=== PATIENT | female | born 1950 | race Caucasian/White ===

== ENCOUNTER 2016-07-28 07:08 | Inpatient (IN) | payer MEDICARE ==
[~2016-07-28] VITALS: Ht 154.9 cm; Wt 114.2 kg
[2016-07-28] VITALS (11 sets, daily range): BP systolic 95–123; BP diastolic 50–70; PULSE 82–102; RESP 20–32; TEMP 98.3–99.9; O2SAT 95–98
[~2016-07-28 07:08] MED LIST: FERR325T PO; MIRA0.5T PO; OSCA200T PO; TRAM50TA PO
[2016-07-28] MEDS ORDERED: METR500T10 PO (07:32)
[2016-07-28] MEDS ORDERED: CEFD300C PO (07:32)
[2016-07-28] MEDS ORDERED: HYDR-3516 PO (07:32)
[2016-07-28] MEDS ORDERED: DULO1CAP2 PO (07:32)
[2016-07-28] MEDS ORDERED: SODIUM CHLOR 0.9% 1000 ML INJ 1,000 ML IV SCH (07:35)
--- NOTE | 2016-07-28 07:44 | PD ---
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 The patient reports that she had underwent a complex abdominal reconstruction in September 2015 and ultimately developed wound infection and wound dehiscence. As per patient, Dr. Adrian Velez brought patient to the operating room on October 03, 2015 and she had large recurrent incisional hernia from multiple abdominal surgeries. Postop, patient had hernia repair with mesh placement. 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 Patient reports that she was sent to see Dr. Spencer Starks at [facility] in [facility] for colonic fistula repair and repair of recurrent ventral incisional hernia. 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 Patient currently is taking cefdinir 300mg bid as well as metronidazole 500mg tid - reports that she has been on these medications since she was discharged from [facility] on the . Patient reports that for the past few days, she noticed a "bump" to her left side of her abdomen. Reports that she woke up this morning and her sheets felt wet. Reports that she called her over and he saw stool "spewing out of her abdominal wall." Patient reports that the "bump" on her abdomen "rupture and stool was leaking out of it." Pt with low grade fevers with temps in the 99' s yesterday. NO fever/chills. No other c/o at this time. PFSH Past Medical History Arthritis: Yes Asthma: No Autoimmune Disease: Yes (Lupus) Anxiety: No Depression: No Heart Rhythm Problems: No Cancer: No Cardiovascular Problems: No High Cholesterol: Yes Chemotherapy: No Chest Pain: No Congestive Heart Failure: No COPD: No Cerebrovascular Accident: No Diabetes: No Diminished Hearing: No Endocrine: No Gastrointestinal Disorders: Yes (bowel obstruction, diverticulosis) GERD: No Genitourinary: No Hepatitis: Yes (A in 1981) Hiatal Hernia: No Hypertension: Yes Immune Disorder: No Kidney Stones: No Medical other: Yes (toxic shock syndrome 1981) Musculoskeletal: Yes (degenerative disc disease, spinal stenosis, arthritis) Neurologic: Yes (headaches) Psychiatric: No Reproductive: No Respiratory: Yes (hx pneumonia) Migraines: No Radiation Therapy: No Renal Failure: No Seizures: Yes (September 2015 witnessed in ED.) Sickle Cell Disease: No Sleep Apnea: No Thyroid Disease: No Ulcer: No Menopausal: Yes : 0 Para: 0 Past Surgical History Abdominal Surgery: Yes (Colectomy with colostomy, colostomy reversal, Gastric Bypass) AICD: No Arteriovenous Shunt: No Cardiac Surgery: No Ear Surgery: No Endocrine Surgery: No Eye Surgery: No Genitourinary Surgery: No Gynecologic Surgery: No Insulin Pump: No Joint Replacement: No Oral Surgery: No Pacemaker: No Thoracic Surgery: No Other Surgery: Yes (herina repair surgery september,) Social History Alcohol Use: No Tobacco Use: No Substance Use: No Allergies-Medications (Allergen,Severity, Reaction): Coded Allergies: Penicillin (Verified Allergy, Severe, rash, 07/28/16) Vancomycin (Verified Adverse Reaction, Mild, Hives, 07/28/16) Reported Meds & Prescriptions Reported Meds & Active Scripts Active Reported Metronidazole 500 Mg Tab 500 Mg PO TID Duloxetine DR (Duloxetine HCl) 30 Mg Capdr 30 Mg PO DAILY Cefdinir 300 Mg Cap 300 Mg PO DAILY Hydrocodone-Acetaminophen 5-325 mg Tab 1 Tab PO Q4H PRN Mirapex (Pramipexole Dihydrochloride) 0.5 Mg Tab 0.5 Mg PO HS Ferrous Sulfate 325 Mg Tab 325 Mg PO DAILY Oscal 500/200 D-3 (Calcium Carbonate-Vitamin D) Unknown Strength Tab Unknown Dose PO BID Review of Systems General / Constitutional: No: Fever Eyes: No: Visual changes HENT: No: Headaches Cardiovascular: No: Chest Pain or Discomfort Respiratory: No: Shortness of Breath Gastrointestinal: Positive: Abdominal Pain, No: Nausea, Vomiting Genitourinary: No: Dysuria Musculoskeletal: No: Pain Skin: Positive Other (stool from abdominal wall), No Rash Neurologic: No: Weakness Psychiatric: No: Depression Endocrine: No: Polydipsia Hematologic/Lymphatic: No: Easy Bruising Physical Exam Narrative GENERAL: patient in mild distress SKIN: Warm and dry. HEAD: Atraumatic. Normocephalic. EYES: No injection or drainage. ENT: No nasal bleeding or discharge. Mucous membranes pink and moist. NECK: Trachea midline. No JVD. CARDIOVASCULAR: Regular rate and rhythm. No murmur appreciated. RESPIRATORY: No accessory muscle use. Clear to auscultation. Breath sounds equal bilaterally. GASTROINTESTINAL: Abdomen soft, tenderness to lower abdomen with left sided circumferential lower abdominal wall (1x1cm) green drainage Rectal exam performed with RN Sary at bedside, pt with light brown heme neg stool MUSCULOSKELETAL: No obvious deformities. No clubbing. No cyanosis. No edema. NEUROLOGICAL: Awake and alert. Motor grossly within normal limits. 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 PSYCHIATRIC: Appropriate mood and affect; insight and judgment normal. Data Data Last Documented VS Vital Signs Date Time Temp Pulse Resp B/P Pulse Ox O2 Delivery O2 Flow Rate FiO2 07/28/16 11:01 98.3 85 20 95/51 07/28/16 07:32 95 Orders Consult Vascular Access Team (07/28/16 ) Complete Blood Count With Diff (07/28/16 07:35) Comprehensive Metabolic Panel (07/28/16 07:35) Lipase (07/28/16 07:35) Lactic Acid (07/28/16 07:35) Prothrombin Time / Inr (Pt) (07/28/16 07:35) Act Partial Throm Time (Ptt) (07/28/16 07:35) Urinalysis - C+S If Indicated (07/28/16 07:35) Ct Abd/Pel W Iv Contrast(Rout) (07/28/16 07:35) Iv Access Insert/Monitor (07/28/16 07:35) NPO (07/28/16 07:35) Sodium Chlor 0.9% 1000 Ml Inj (Ns 1000 M (07/28/16 07:35) Sodium Chloride 0.9% Flush (Ns Flush) (07/28/16 07:45) Vascular Poc Ultrasound (07/28/16 ) Type And Screen (07/28/16 08:37) Complete Blood Count With Diff (07/28/16 08:41) Red Blood Cells (Rbc) (07/28/16 09:15) Blood Product Administration .UPON TRANSFUSION (07/28/16 09:15) Sodium Chlor 0.9% 250 Ml Inj (Ns 250 Ml (07/28/16 09:15) Vitamin B12 (07/28/16 09:19) Folate, Serum (07/28/16 09:19) Rbc Folate (07/28/16 09:19) Ferritin (07/28/16 09:19) Iron/Tibc Profile (07/28/16 09:19) Retic Count (07/28/16 09:19) Iohexol 350 Inj (Omnipaque 350 Inj) (07/28/16 10:46) Lidocai-Epi 1%-1:100,000 Inj (Xylocaine- (07/28/16 12:15) Admit Order (Ed Use Only) (07/28/16 12:20) Labs Laboratory Tests Test 07/28/16 07/28/16 07/28/16 07/28/16 08:15 08:45 09:18 10:38 White Blood Count 16.5 TH/MM3 15.5 TH/MM3 Red Blood Count 2.64 MIL/MM3 2.60 MIL/MM3 Hemoglobin 6.8 GM/DL 6.8 GM/DL Hematocrit 21.3 % 21.0 % Mean Corpuscular Volume 80.6 FL 80.7 FL Mean Corpuscular Hemoglobin 25.7 PG 26.3 PG Mean Corpuscular Hemoglobin 31.9 % 32.6 % Concent Red Cell Distribution Width 16.3 % 15.9 % Platelet Count 941 TH/MM3 920 TH/MM3 Mean Platelet Volume 6.5 FL 6.4 FL Neutrophils (%) (Auto) 82.1 % 80.0 % Lymphocytes (%) (Auto) 5.3 % 6.6 % Monocytes (%) (Auto) 11.7 % 12.7 % Eosinophils (%) (Auto) 0.7 % 0.5 % Basophils (%) (Auto) 0.2 % 0.2 % Neutrophils # (Auto) 13.5 TH/MM3 12.4 TH/MM3 Lymphocytes # (Auto) 0.9 TH/MM3 1.0 TH/MM3 Monocytes # (Auto) 1.9 TH/MM3 2.0 TH/MM3 Eosinophils # (Auto) 0.1 TH/MM3 0.1 TH/MM3 Basophils # (Auto) 0.0 TH/MM3 0.0 TH/MM3 CBC Comment DIFF FINAL DIFF FINAL Differential Comment Prothrombin Time 13.3 SEC Prothromb Time International 1.2 RATIO Ratio Activated Partial 24.6 SEC Thromboplast Time Sodium Level 140 MEQ/L Potassium Level 3.7 MEQ/L Chloride Level 102 MEQ/L Carbon Dioxide Level 33.2 MEQ/L Anion Gap 5 MEQ/L Blood Urea Nitrogen 8 MG/DL Creatinine 0.55 MG/DL Estimat Glomerular Filtration 111 ML/MIN Rate Random Glucose 153 MG/DL Lactic Acid Level 1.8 mmol/L Calcium Level 7.6 MG/DL Iron Level 12 MCG/DL Total Iron Binding Capacity 126 MCG/DL Percent Iron Saturation 9.5 % Ferritin 116 NG/ML Total Bilirubin 0.2 MG/DL Aspartate Amino Transf 4 U/L (AST/SGOT) Alanine Aminotransferase 8 U/L (ALT/SGPT) Alkaline Phosphatase 112 U/L Total Protein 5.1 GM/DL Albumin 1.3 GM/DL Lipase 84 U/L Vitamin B12 Level 1524 PG/ML Folate 18.3 NG/ML Blood Type B POSITIVE Antibody Screen NEGATIVE Crossmatch Leukocyte-Reduced Red Blood Cells Blood Bank Comment Reticulocyte Count 2.2 % Absolute Reticulocyte Count 56.8 MIL/L MDM Medical Decision Making Medical Screen Exam Complete: Yes Emergency Medical Condition: Yes Interpretation(s) Vital Signs Date Time Temp Pulse Resp B/P Pulse Ox O2 Delivery O2 Flow Rate FiO2 07/28/16 07:32 98.5 102 20 117/70 95 Differential Diagnosis Abdominal wall colonic fistula, abdominal wall adhesions, seroma, abdominal wall abscess, postop infection Narrative Course Patient is a 65-year-old female who presents to emergency room for evaluation of abdominal wall drainage status post colonic fistula repair with repair of a recurrent ventral incisional hernia on July 23, 2016 at [facility] in [facility]. Patient reports that she noticed that "bump" on her left lower abdomen for the past few days, patient reports that the bump ruptured this morning and she noticed increased stool from the area of her "popped bump." Patient reports that her surgeon is Dr Beach who has been managing her but reports that she was recently operated by Dr Spencer Starks due to complications. 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 plan to obtain labs and ct studies for further workup of abdominal wall drainage. hbg 6.8 - this was checked twice (repeat cbc was sent), pt with heme neg stool with baseline hgb 9.7 01/13), will type and screen and give 1 unit of blood to patient. pt denies lightheadedness/dizzyness, denies cp/sob at this time. patient consents to this unit of blood at this time Repeat CT of the abdomen and pelvis as well as labs with patient Call made to Gen. surgery to review case Case reviewed with Medicine -accepts pt to service Dr Cordova saw patient in consult, he will I&D pt's abscess at bedside, request 2 more units of blood be ordered for patient for a total of 3 units of blood pt will be upgraded to ICU Critical Care Narrative Aggregate critical care time was 45 minutes. Time to perform other separately billable procedures was not included in the critical care time. My time did not include minutes spent treating any other patients simultaneously or on activities that did not directly contribute to the patient's treatment. The services I provided to this patient were to treat and/or prevent clinically significant deterioration that could result in: , decompensation, deterioration I provided critical care services requiring my management, as noted below: Chart data review, documentation time, medication orders and management, vital sign assessments/reviewing monitor data, ordering and reviewing lab tests, ordering and interpreting/reviewing x-rays and diagnostic studies, care of the patient and discussion of the patient with the admitting physicians. Physician Communication Physician Communication Dr Cordova, Family Medicine service Diagnosis Primary Impression: Anemia Qualified Code: D64.9 - Anemia, unspecified type Additional Impression: Abscess of abdominal wall Admitting Information Admitting Physician Requests: Admit Ginette Dunham DO Jul 28, 2016 07:44
[2016-07-28] MEDS ORDERED: SODIUM CHLORIDE 0.9% FLUSH 5 ML FLUSH IVF PRN (07:45)
[2016-07-28 08:26] LABS: AUTOMATED NEUTROPHIL # 13.5 TH/MM3 (1.8-7.7); BASOPHIL % 0.2 % (0.0-2.0); EOSINOPHIL # 0.1 TH/MM3 (0-0.4); EOSINOPHIL % 0.7 % (0.0-4.0); LYMPH % 5.3 % (9.0-44.0); LYMPHOCYTE # 0.9 TH/MM3 (1.0-4.8); MEAN CELL VOLUME 80.6 FL (80.0-100.0); MEAN CORPUSCULAR HEMOGLOBIN 25.7 PG (27.0-34.0); MEAN CORPUSCULAR HGB CONC 31.9 % (32.0-36.0); MONO % 11.7 % (0.0-8.0); NEUT % 82.1 % (16.0-70.0); PLATELET COUNT 941 TH/MM3 (150-450); RED BLOOD COUNT 2.64 MIL/MM3 (4.00-5.30); RED CELL DISTRIBUTION WIDTH 16.3 % (11.6-17.2); WHITE BLOOD COUNT 16.5 TH/MM3 (4.0-11.0)
[2016-07-28 08:27] LABS: HEMO FLAGS DIFF FINAL
[2016-07-28 08:30] LABS: HEMATOCRIT 21.3 % (35.0-46.0)
[2016-07-28 08:35] LABS: APTT (PATIENT) 24.6 SEC (24.3-30.1); INTERNATIONAL NORMALIZED RATIO 1.2 RATIO; PROTHROMBIN TIME - PATIENT 13.3 SEC (9.8-11.6)
[2016-07-28 08:40] LABS: ANION GAP 5 MEQ/L (5-15); AST (GOT) 4 U/L (15-37); BICARBONATE 33.2 MEQ/L (21.0-32.0); BLOOD UREA NITROGEN 8 MG/DL (7-18); CHLORIDE 102 MEQ/L (98-107); GLOMERULAR FILTRATION RATE 111 ML/MIN (>89); POTASSIUM 3.7 MEQ/L (3.5-5.1); SODIUM (NA) 140 MEQ/L (136-145)
[2016-07-28 08:43] LABS: ALKALINE PHOSPHATASE 112 U/L (45-117); ALT (GPT) 8 U/L (10-53); TOTAL BILIRUBIN ADULT 0.2 MG/DL (0.2-1.0)
[2016-07-28 08:57] LABS: AUTOMATED NEUTROPHIL # 12.4 TH/MM3 (1.8-7.7); BASOPHIL % 0.2 % (0.0-2.0); EOSINOPHIL # 0.1 TH/MM3 (0-0.4); EOSINOPHIL % 0.5 % (0.0-4.0); HEMO FLAGS DIFF FINAL; LYMPH % 6.6 % (9.0-44.0); MEAN CELL VOLUME 80.7 FL (80.0-100.0); MEAN CORPUSCULAR HEMOGLOBIN 26.3 PG (27.0-34.0); MEAN CORPUSCULAR HGB CONC 32.6 % (32.0-36.0); MONO % 12.7 % (0.0-8.0); PLATELET COUNT 920 TH/MM3 (150-450); RED CELL DISTRIBUTION WIDTH 15.9 % (11.6-17.2); WHITE BLOOD COUNT 15.5 TH/MM3 (4.0-11.0)
[2016-07-28] MEDS: SODIUM CHLORIDE 0.9% FLUSH 5 ML FLUSH FLUSH SCH ×2 (09:00→21:00)
[2016-07-28] MEDS ORDERED: SODIUM CHLOR 0.9% 250 ML INJ 250 ML IV ONE ×4 (09:15→22:15)
[2016-07-28 10:13] LABS: FERRITIN 116 NG/ML (8-252); TRANSFERRIN IRON PROFILE 90 MG/DL (200-360)
[2016-07-28] MEDS ORDERED: IOHEXOL 350 MG/ML 10 ML VIAL (for RAD DIAG) IV ONE (10:46)
[2016-07-28 10:59] LABS: RETIC % 2.2 % (0.4-3.0)
[2016-07-28 11:02] LABS: REVIEW FLAG FINAL
--- NOTE | 2016-07-28 11:13 | RADRPT ---
EXAM DATE/TIME: 07/28/2016 09:50 [facility] COMPARISON: CT ASSISTED ABSCESS DRAIN, January 06, 2016, 11:32. CT ABDOMEN & PELVIS W CONTRAST, January 05, 2016, 1:06 . INDICATIONS : Abdomen pain. IV CONTRAST: 100 cc Omnipaque 350 (iohexol) IV ORAL CONTRAST: No oral contrast ingested. RADIATION DOSE: 42.05 CTDIvol (mGy) MEDICAL HISTORY : Lupus. Diverticulosis. SURGICAL HISTORY : Gastric bypass. Inguinal hernia repair.Colostomy reversal ENCOUNTER: Initial ACUITY: 1 day PAIN SCALE: 5/10 [facility] TECHNIQUE: Volumetric scanning of the abdomen and pelvis was performed. Using automated exposure control and ad justment of the mA and/or kV according to patient size, radiation dose was kept as low as reasonably achievable to obtain optimal diagnostic quality images. FINDINGS: LOWER LUNGS: The visualized lower lungs are clear. LIVER: Homogeneous density without lesion. There is no dilation of the biliary tree. No gallbladder, surgi nicole removed.. SPLEEN: Normal size without lesion. PANCREAS: Within normal limits. KIDNEYS: Normal in size and shape. There is no mass, stone or hydronephrosis. ADRENAL GLANDS: Within normal limits. VASCULAR: There is no aortic aneurysm. Atherosclerotic changes. BOWEL/MESENTERY: The bowel gas pattern is within normal limits. There is no abnormal dilatation of large or small iwona l. There is stool in the colon. There continues to be either a large hernia versus a panniculus on th e left side with small and large bowel loops seen extending into the left lateral abdominal wall area . No definite free fluid or loculated fluid collections are seen within the peritoneal cavity. No def inite free air is seen in the peritoneal cavity. However, there is a large amount of subcutaneous air is seen throughout the abdominal wall. ABDOMINAL WALL: There is a large amount of subcutaneous emphysema noted throughout the abdominal wall at the level of the umbilicus extending from patient's right lateral wall all the way over to the left lateral wall. Subcutaneous emphysema throughout the abdominal wall was also noted on patient's prior study of 2015. There is a fluid collection with air in the left anterior abdominal wall suspicious for an absc ess. There is also evidence of nonspecific edema in the subcutaneous soft tissues of the abdominal wa ll. RETROPERITONEUM: There is no lymphadenopathy. BLADDER: No wall thickening or mass. REPRODUCTIVE: Within normal limits. INGUINAL: There is no lymphadenopathy or hernia. MUSCULOSKELETAL: Diffuse bony degenerative changes without significant change compared to the prior study. CONCLUSION: 1. There is diffuse and extensive subcutaneous emphysema around the abdominal wall from patient's rig ht lateral abdominal wall all the way across midline to the left lateral abdominal wall. 2. There appears to be of fluid collection in the anterior left abdominal wall suspicious for a subcu taneous abscess. There is nonspecific edema throughout the subcutaneous tissues of the abdominal wall . 3. No acute intra-abdominal/pelvic pathology. Fred Solis MD on July 28, 2016 at 10:56 Board Certified Radiologist. This report was verified electronically.
--- NOTE | 2016-07-28 12:13 | HHI.HP ---
[facility] Service Family Medicine Primary Care Physician Navin Bonner M.D. 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 Patient reports that she underwent a complex abdominal reconstruction in September of 2015 and ultimately developed wound infection and wound dehiscence. Patient states Dr. Velez brought the patient to the OR in September of 2015 as she had a large recurrent incisional hernia from multiple abdominal surgeries. Postop, patient had a hernia repair with mesh placement. 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 Patient reports that she was sent to see Dr. Spencer Starks at [facility] in [place], [place] for colonic fistula repair and repair of recurrent ventral incisional hernia. 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 Patient was discharged on cefdinir 300 mg bid and Flagyl 500 mg tid and states she has been compliant with these medications. Her states that prior to discharge from [place] patient noticed a small "bump" on her abdomen that initially was thought to be due to her abdominal binder. Since discharge, it has steadily been getting larger. This morning it started draining liquid appearing like stool as well as blood. She states her PO intake of both solids and liquids has not changed recently, and denies any issues urinating or stooling this past week. Denies N/V , visible blood in stools, melena. Denies recent fevers, chills, night sweats. ( Abel Jacobs MD R1) Review of Systems Constitutional: DENIES: Fever, Chills, Change in appetite Cardiovascular: DENIES: Chest pain, Palpitations Gastrointestinal: DENIES: Diarrhea, Nausea, Vomiting Genitourinary: DENIES: Hematuria, Dysuria Integumentary: COMPLAINS OF: Rash (Abel Jacobs MD R1) Past Family Social History Past Medical History DM Morbid obesity HTN Bowel obstruction Diverticulosis Seizure SLE Past Surgical History Abdominal absess s/p colostomy 2000 with colostomy takedown 2002 Gastric bypass 2005, multiple hernia repairs, knee surgery 2002 Open cholecystectomy and incisional hernia repair with Dr. Velez (October 02-) 10/04/15 ex lap MALINA, abd wall reconstruction, old mesh removal Reported Medications Reported Meds & Active Scripts Active Reported Metronidazole 500 Mg Tab 500 Mg PO TID Duloxetine DR (Duloxetine HCl) 30 Mg Capdr 30 Mg PO DAILY Cefdinir 300 Mg Cap 300 Mg PO DAILY Hydrocodone-Acetaminophen 5-325 mg Tab 1 Tab PO Q4H PRN Mirapex (Pramipexole Dihydrochloride) 0.5 Mg Tab 0.5 Mg PO HS Ferrous Sulfate 325 Mg Tab 325 Mg PO DAILY Oscal 500/200 D-3 (Calcium Carbonate-Vitamin D) Unknown Strength Tab Unknown Dose PO BID (Abel Jacobs MD R1) Allergies: Coded Allergies: Penicillin (Verified Allergy, Severe, rash, 07/28/16) Family History No FH of colon cancer Social History Lives at home with Quit smoking in 1997 (Abel Jacobs MD R1) Physical Exam Vital Signs Vital Signs Date Time Temp Pulse Resp B/P Pulse Ox O2 Delivery O2 Flow Rate FiO2 07/28/16 11:01 98.3 85 20 95/51 07/28/16 10:48 99.1 98 20 107/58 07/28/16 07:32 98.5 102 20 117/70 95 Physical Exam GENERAL: NAD, lying comfortably in bed NEURO: AOx3. 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 SKIN: Warm and dry. Extensive erythema and some edema diffusely over abdomen with two open areas one being actively drained by Dr. Cordova at bedside. Discharge noted to appear as stool. HEAD: Normocephalic. Atraumatic. EYES: EOMI. No scleral icterus. No injection or drainage. ENT: No nasal drainage. Moist mucous membranes. No oral ulcers or lesions. NECK: Supple, trachea midline. No JVD. CARDIOVASCULAR: Regular rate and rhythm without murmurs, gallops, or rubs. Peripheral pulses 2+. Capillary refill < 2 seconds. RESPIRATORY: Fair aeration throughout, without wheezes, rales, or rhonchi. No accessory muscle use. GASTROINTESTINAL: Abdomen soft, tender to palpation over areas of erythema, protuberant. MUSCULOSKELETAL: 2+ bilateral lower extremity edema. Laboratory Laboratory Tests Test 07/28/16 07/28/16 07/28/16 07/28/16 08:15 08:45 09:18 10:38 White Blood Count 16.5 15.5 Red Blood Count 2.64 2.60 Hemoglobin 6.8 6.8 Hematocrit 21.3 21.0 Mean Corpuscular Volume 80.6 80.7 Mean Corpuscular Hemoglobin 25.7 26.3 Mean Corpuscular Hemoglobin 31.9 32.6 Concent Red Cell Distribution Width 16.3 15.9 Platelet Count 941 920 Mean Platelet Volume 6.5 6.4 Neutrophils (%) (Auto) 82.1 80.0 Lymphocytes (%) (Auto) 5.3 6.6 Monocytes (%) (Auto) 11.7 12.7 Eosinophils (%) (Auto) 0.7 0.5 Basophils (%) (Auto) 0.2 0.2 Neutrophils # (Auto) 13.5 12.4 Lymphocytes # (Auto) 0.9 1.0 Monocytes # (Auto) 1.9 2.0 Eosinophils # (Auto) 0.1 0.1 Basophils # (Auto) 0.0 0.0 CBC Comment DIFF FINAL DIFF FINAL Differential Comment Prothrombin Time 13.3 Prothromb Time International 1.2 Ratio Activated Partial 24.6 Thromboplast Time Sodium Level 140 Potassium Level 3.7 Chloride Level 102 Carbon Dioxide Level 33.2 Anion Gap 5 Blood Urea Nitrogen 8 Creatinine 0.55 Estimat Glomerular Filtration 111 Rate Random Glucose 153 Lactic Acid Level 1.8 Calcium Level 7.6 Iron Level 12 Total Iron Binding Capacity 126 Percent Iron Saturation 9.5 Ferritin 116 Total Bilirubin 0.2 Aspartate Amino Transf 4 (AST/SGOT) Alanine Aminotransferase 8 (ALT/SGPT) Alkaline Phosphatase 112 Total Protein 5.1 Albumin 1.3 Lipase 84 Vitamin B12 Level 1524 Folate 18.3 Blood Type B POSITIVE Antibody Screen NEGATIVE Crossmatch Leukocyte-Reduced Red Blood Cells Blood Bank Comment Reticulocyte Count 2.2 Absolute Reticulocyte Count 56.8 (Abel Jacobs MD R1) Result Diagram: 07/28/16 0845 07/28/16 0815 Imaging Last 48 hours Impressions Abdomen/Pelvis CT 07/28/16 0735 Signed Impressions: Service Date/Time: Thursday, July 28, 2016 09:50 - CONCLUSION: 1. There is diffuse and extensive subcutaneous emphysema around the abdominal wall from patient's right lateral abdominal wall all the way across midline to the left lateral abdominal wall. 2. There appears to be of fluid collection in the anterior left abdominal wall suspicious for a subcutaneous abscess. There is nonspecific edema throughout the subcutaneous tissues of the abdominal wall. 3. No acute intra-abdominal/pelvic pathology. 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 She is also found to be anemic and BP hypotensive at 95/51. She will be admitted and managed for the following: Code Status Full code Discussed Condition With Dr. Faye Harris (Abel Jacobs MD R1) Attending Attestation THIS CASE WAS DISCUSSED WITH THE RESIDENT PHYSICIANS. I HAVE REVIEWED THE RECORD AND AGREE WITH THE ABOVE NOTE AND PLAN OF CARE WAS DISCUSSED. I HAVE AUTHORIZED THE ORDER FOR ADMISSION TO AN IN-PATIENT STATUS. (Fred Mckinney MD) Problem List: (1) Abscess of abdominal wall Status: Acute Plan: - Meets sepsis criteria; tachycardic, tachypneic, with leukocytosis - Lactic acid 1.8 - Abdomen/Pelvis CT: Diffuse and extensive subcutaneous emphysema around the abdominal wall from patient's right lateral abdominal wall across midline to left lateral abdominal wall. Fluid collection in anterior left abdominal wall suspicious for subcutaneous abscess. Nonspecific edema throughout subcutaneous tissues. No acute intra-abdominal or pelvic pathology. Given extent of erythema and edema of skin and subcutaneous abscess, we will cover with broad-spectrum antibiotics - Vancomycin, pharm consult - Cefepime 2gm IV q8h - Flagyl 500 mg IV q6h Pain control with morphine 4 mg IV q4h prn pain 6-10, hold if SBP < 110 or DBP < 60 Consult general surgery - Case discussed with Dr. Cordova, general surgeon; who stated the patient will go to the OR tomorrow for likely I&D and possible wound vac (2) Hypotension Status: Acute Plan: - BP on admission 117/70 - Patient became hypotensive to 95/51 while abscess was being drained at bedside - Likely due to sepsis and acute blood loss - Will admit the patient to an ICU given her hypotension with anemia and risk for decompensation - Last ECHO on file from 09/2015 TTE: Normal systolic function, EF estimated 55- 60%; grade 1 diastolic dysfunction - Discussed with Dr. Cordova that if the patient were to develop worsening hypotension overnight, call Dr. Cordova prior to initiating any pressor therapy as the patient may urgently be taken to the OR (3) Anemia Status: Acute Plan: - Hgb on admission 6.8 - MCV 80.7 - Iron panel obtained prior to blood transfusions indicating anemia of chronic disease - Consult gastroenterology for possible EGD/colonoscopy for further evaluation - B12 and Folate both elevated - Retic count inappropriately at 2.2 - 1 unit PRBCs ordered by ED - Will transfuse additional 2 units PRBCs with 20 mg IV Lasix in between - Goal Hgb per general surgery is > 9 in anticipation of surgery tomorrow - Recheck H/H post-transfusion - Order additional PRBCs if Hgb is not > 9 - Trend CBC tomorrow AM (4) Sepsis Status: Acute Plan: Plan as above (5) Nutrition, metabolism, and development symptoms Status: Acute Plan: Fluids: Will start this PM ahead of surgery Electrolytes: WNLs, continue to monitor and replete as necessary Nutrition: Clear liquid diet today, NPO after midnight DVT PPX: SCDs. No chemical anticoagulation in anticipation of surgery tomorrow (Abel Jacobs MD R1) Physician Certification 2 Midnight Certification Type: Admission for Inpatient Services Order for Inpatient Services The services are ordered in accordance with Medicare regulations or non- Medicare payer requirements, as applicable. In the case of services not specified as inpatient-only, they are appropriately provided as inpatient services in accordance with the 2-midnight benchmark. Estimated LOS (days): 3 days is the estimated time the patient will need to remain in the hospital, assuming treatment plan goals are met and no additional complications. Post-Hospital Plan: Home (Abel Jacobs MD R1) Problem Qualifiers (1) Anemia: Qualified Code: D64.9 - Anemia, unspecified type Abel Jacobs MD R1 Jul 28, 2016 12:13 Fred Mckinney MD Jul 28, 2016 21:12
[2016-07-28] MEDS ORDERED: LIDOCAINE 1%/EPINEPHrine 1:100,000 SOLN 20 ML VIAL INFIL ONE (12:15)
[2016-07-28] MEDS ORDERED: LEVOFLOXACIN 750 MG PREMIX INJ 150 ML IV ONE (12:30)
[2016-07-28] MEDS ORDERED: NALOXONE HCL 0.4 MG/ML AMP IV PRN (13:00)
[2016-07-28] MEDS ORDERED: SODIUM CHLORIDE 0.9% FLUSH 5 ML FLUSH FLUSH PRN (13:00)
[2016-07-28] MEDS ORDERED: FUROSEMIDE 20 MG/2 ML VIAL IV ONE (13:00)
[2016-07-28] MEDS ORDERED: FUROSEMIDE 20 MG/2 ML VIAL IV PUSH ONE (13:00)
[2016-07-28] MEDS: CEFEPIME INJ 2,000 MG in SODIUM CHLORIDE 0.9% INJ 100 ML IV SCH ×2 (14:00→21:24)
--- NOTE | 2016-07-28 14:41 | PD.CONS ---
HPI History of Present Illness This is a 65 year old female with extensive history of complicated multiple abdominal surgeries dating back to 2000, gastric by pass, and large recurrent incisional hernia from multiple abdominal surgeries.who presents today for evaluation of abdominal fistula. By report, patient had a recent repair of small bowel fistula and ventral incisional hernia repair in [place] and was discharged on July 23, 2016 on abx. Patient reports that for the past few days, she noticed a "bump" to her left side of her abdomen. Reports that she woke up this morning and her sheets felt wet. The bump had ruptured and stool was leaking out of it. Pt with low grade fevers with temps in the 99's yesterday. Gs consulted. GI have been consulted for anemia of 6.8. Patient denies nausea, vomiting, hematemesis, hematochezia or melena. Reports loose stools, but not severe. CT showed 1. There is diffuse and extensive subcutaneous emphysema around the abdominal wall from patient's right lateral abdominal wall all the way across midline to the left lateral abdominal wall. 2. There appears to be of fluid collection in the anterior left abdominal wall suspicious for a subcutaneous abscess. There is nonspecific edema throughout the subcutaneous tissues of the abdominal wall. 3. No acute intra-abdominal/ pelvic pathology. She had EGD/colonoscopy about 7 years ago. (Tolu Moran) PFSH Past Medical History DM Morbid obesity HTN Bowel obstruction Diverticulosis Seizure SLE Past Surgical History abdominal absess s/p colostomy 2000 with colostomy takedown 2001 gastric bypass 2004, multiple hernia repairs, knee surgery 200210/04/15 ex lap MALINA, abd wall reconstruction, old mesh removal, cholecystectomy recent repair of small bowel fistula and ventral incisional hernia repair in [place] in 2017 (Tolu Moran) Coded Allergies: Penicillin (Verified Allergy, Severe, rash, 07/28/16) Medications Current Medications Medications (Trade) Dose Ordered Sig/Johnie Route Start Time Stop Time Status Last Admin IV Flush 2 ml 2 ml UNSCH PRN IVF 07/28/16 07:45 Sodium Chloride 250 ml @ 15 mls/hr ONCE ONCE IV 07/28/16 09:15 07/29/16 01:54 07/28/16 10:47 (NS 250 ml Inj) 250 ml @ 15 mls/hr ONCE ONCE IV 07/28/16 13:00 07/29/16 05:39 (NS Flush) 2 ml UNSCH PRN FLUSH 07/28/16 13:00 (NS Flush) 2 ml BID FLUSH 07/28/16 13:00 Naloxone HCl 0.4 mg 0.4 mg UNSCH PRN IV 07/28/16 13:00 Sodium Chloride 250 ml @ 15 mls/hr ONCE ONCE IV 07/28/16 13:00 07/29/16 05:39 Vancomycin HCl 1000 mg/Sodium Chloride 250 ml @ 250 mls/hr Q24H IV 07/28/16 15:00 Cefepime HCl 2000 mg/Sodium Chloride 100 ml @ 200 mls/hr Q8H IV 07/28/16 14:00 (Flagyl 500 Mg Inj) 100 ml @ 100 mls/hr Q6H IV 07/28/16 14:00 (Morphine Inj) 4 mg Q4HR PRN IV PUSH 07/28/16 13:45 Family History No family history of colon cancer Social History No alcohol No smoking (Tolu Moran) Review of Systems Constitutional: DENIES: Chills, Change in appetite Endocrine: DENIES: Polyuria Ears, nose, mouth, throat: DENIES: Hoarseness Respiratory: DENIES: Shortness of breath Cardiovascular: DENIES: Syncope, Lower Extremity Edema Gastrointestinal: DENIES: Abdominal pain, Black stools, Bloody stools, Constipation, Diarrhea, Nausea, Vomiting, Difficulty Swallowing, Anorexia, Odynophagia, Swelling of Abdomen, Heartburn, Hematemesis Genitourinary: DENIES: Hematuria Musculoskeletal: DENIES: Neck pain Integumentary: DENIES: Jaundice Hematologic/lymphatic: DENIES: Bruising Immunologic/allergic: DENIES: Eczema Neurologic: DENIES: Abnormal gait Psychiatric: DENIES: Anxiety (Tolu Moran) GI Exam Vitals I&O Vital Signs Date Time Temp Pulse Resp B/P Pulse Ox O2 Delivery O2 Flow Rate FiO2 07/28/16 13:31 82 20 113/53 07/28/16 11:01 98.3 85 20 95/51 07/28/16 10:48 99.1 98 20 107/58 07/28/16 07:32 98.5 102 20 117/70 95 I/O 07/27/16 07/27/16 07/27/16 07/28/16 1/28/17 1/28/17 07:00 15:00 23:00 07:00 15:00 23:00 Intake Total 1000 ml Balance 1000 ml Intake IV Total 1000 ml Imaging Last Impressions Abdomen/Pelvis CT 07/28/16 0735 Signed Impressions: Service Date/Time: Thursday, July 28, 2016 09:50 - CONCLUSION: 1. There is diffuse and extensive subcutaneous emphysema around the abdominal wall from patient's right lateral abdominal wall all the way across midline to the left lateral abdominal wall. 2. There appears to be of fluid collection in the anterior left abdominal wall suspicious for a subcutaneous abscess. There is nonspecific edema throughout the subcutaneous tissues of the abdominal wall. 3. No acute intra-abdominal/pelvic pathology. Fred Solis MD Laboratory Test 07/28/16 07/28/16 07/28/16 07/28/16 08:15 08:45 09:18 10:38 White Blood Count 16.5 TH/MM3 15.5 TH/MM3 Red Blood Count 2.64 MIL/MM3 2.60 MIL/MM3 Hemoglobin 6.8 GM/DL 6.8 GM/DL Hematocrit 21.3 % 21.0 % Mean Corpuscular Volume 80.6 FL 80.7 FL Mean Corpuscular Hemoglobin 25.7 PG 26.3 PG Mean Corpuscular Hemoglobin 31.9 % 32.6 % Concent Red Cell Distribution Width 16.3 % 15.9 % Platelet Count 941 TH/MM3 920 TH/MM3 Mean Platelet Volume 6.5 FL 6.4 FL Neutrophils (%) (Auto) 82.1 % 80.0 % Lymphocytes (%) (Auto) 5.3 % 6.6 % Monocytes (%) (Auto) 11.7 % 12.7 % Eosinophils (%) (Auto) 0.7 % 0.5 % Basophils (%) (Auto) 0.2 % 0.2 % Neutrophils # (Auto) 13.5 TH/MM3 12.4 TH/MM3 Lymphocytes # (Auto) 0.9 TH/MM3 1.0 TH/MM3 Monocytes # (Auto) 1.9 TH/MM3 2.0 TH/MM3 Eosinophils # (Auto) 0.1 TH/MM3 0.1 TH/MM3 Basophils # (Auto) 0.0 TH/MM3 0.0 TH/MM3 CBC Comment DIFF FINAL DIFF FINAL Differential Comment Prothrombin Time 13.3 SEC Prothromb Time International 1.2 RATIO Ratio Activated Partial 24.6 SEC Thromboplast Time Sodium Level 140 MEQ/L Potassium Level 3.7 MEQ/L Chloride Level 102 MEQ/L Carbon Dioxide Level 33.2 MEQ/L Anion Gap 5 MEQ/L Blood Urea Nitrogen 8 MG/DL Creatinine 0.55 MG/DL Estimat Glomerular Filtration 111 ML/MIN Rate Random Glucose 153 MG/DL Lactic Acid Level 1.8 mmol/L Calcium Level 7.6 MG/DL Iron Level 12 MCG/DL Total Iron Binding Capacity 126 MCG/DL Percent Iron Saturation 9.5 % Ferritin 116 NG/ML Total Bilirubin 0.2 MG/DL Aspartate Amino Transf 4 U/L (AST/SGOT) Alanine Aminotransferase 8 U/L (ALT/SGPT) Alkaline Phosphatase 112 U/L Total Protein 5.1 GM/DL Albumin 1.3 GM/DL Lipase 84 U/L Vitamin B12 Level 1524 PG/ML Folate 18.3 NG/ML Blood Type B POSITIVE Antibody Screen NEGATIVE Crossmatch Leukocyte-Reduced Red Blood Cells Blood Bank Comment Reticulocyte Count 2.2 % Absolute Reticulocyte Count 56.8 MIL/L Test 07/28/16 12:55 Crossmatch Leukocyte-Reduced Red Blood Cells Blood Bank Comment Date/Time Procedure Status Source Growth 07/28/16 13:15 Aerobic Blood Culture Received Blood Peripheral Pending 07/28/16 13:15 Anaerobic Blood Culture Received Blood Peripheral Pending Physical Examination HEENT: normocephalic; atraumatic; no jaundice. Throat is clear. NECK: Neck is supple, no JVD, no lymphadenopathy. CHEST: Chest is clear to auscultation and percussion. CARDIAC: Regular rate and rhythm with no murmur gallop or rubs. ABDOMEN: firm, nondistended, tender; obese, dssng across the most of the abdomen, 2 drainge bags to the left side, with yellow material. EXTREMITIES: No clubbing, cyanosis, or edema. SKIN: Normal; no rash; no jaundice. GATHERING WORKER: No focal deficits; alert and oriented times three. (Tolu Moran) Assessment and Plan Plan - Severe anemia of 6.8- 3 units have been ordered . GI have been consulted for anemia of 6.8. Patient denies nausea, vomiting, hematemesis, hematochezia or melena. Reports loose stools, but not severe. CT showed 1. There is diffuse and extensive subcutaneous emphysema around the abdominal wall from patient's right lateral abdominal wall all the way across midline to the left lateral abdominal wall. 2. There appears to be of fluid collection in the anterior left abdominal wall suspicious for a subcutaneous abscess. There is nonspecific edema throughout the subcutaneous tissues of the abdominal wall. 3. No acute intra-abdominal/pelvic pathology. She had EGD/colonoscopy about 7 years ago. - Colocutaneous fistula- Gs consulted, ct as above. Patient reports that for the past few days, she noticed a "bump" to her left side of her abdomen. Reports that she woke up this morning and her sheets felt wet. The bump had ruptured and stool was leaking out of it. Pt with low grade fevers with temps in the 99's yesterday. - leukocytosis- WBC 15.5,low grade fever, blood cx pending, lactic acid normal, abx - extensive history of complicated multiple abdominal surgeries dating back to 1999, gastric by pass, and large recurrent incisional hernia from multiple abdominal surgeries.who presents today for evaluation of abdominal fistula. By report, patient had a recent repair of small bowel fistula and ventral incisional hernia repair in [place] and was discharged on July 23, 2016 on abx. Plan: - Diet per GS - will await GS eval, per patient,she is going to OR tomorrow - Will hold off on any GI procedures pending GS work up - EGD/colonoscopy once more stable - Cont to monitor hh - Transfuse as needed - Cont. abx - Supportive care - Patient seen and examined by Dr. Woodruff and myself and this note is written on her behalf. (Tolu Moran) Physician Comments seen, examined agree with above we will observe closely , if hb continues to drop we will schedule egd/colon ( Lora Woodruff MD) Tolu Moran Jul 28, 2016 14:41 Lora Woodruff MD Jul 28, 2016 17:15
[2016-07-28] MEDS ORDERED: VANCOMYCIN 1,000 MG/NS 250 ML IV SCH ×2 (15:00)
[2016-07-28] MEDS ORDERED: VANCOMYCIN INJ 1,000 MG in SODIUM CHLOR 0.9% 250 ML INJ 250 ML IV SCH (15:00)
[2016-07-28] MEDS ORDERED: Vancomycin Consult Pharmacy 1 EA OTHER SCH (16:30)
[2016-07-28] MEDS: VANCOMYCIN 1,500 MG/NS 500 ML IV SCH ×2 (18:14)
--- NOTE | 2016-07-28 18:28 | MB ---
cc: EFREN OLSON M.D. DATE OF CONSULTATION: 07/28/2016. REASON FOR CONSULTATION: Abdominal wall abscess with fistula. 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 The patient was discharged July 23 and has been home since her surgery. She was discharged on antibiotics and had increasing size mass on the left side of the abdomen. The patient developed increasing redness as well and this morning began draining liquid-like stool. She denies fevers, chills or night sweats. REVIEW OF SYSTEMS: CONSTITUTIONAL: No change in appetite. CARDIOVASCULAR: No chest pain or palpitations. RESPIRATORY: No shortness of breath. GI: No nausea, vomiting or diarrhea. : No hematuria or dysuria. INTEGUMENTARY: Area of redness on the lower abdominal wall. FAMILY HISTORY: Past history of diabetes, morbid obesity, hypertension, diverticulosis, seizures, systemic lupus. PAST SURGICAL HISTORY: 1. Abdominal abscess with colostomy in 2000 with colostomy take down in 2001. 2. The patient underwent gastric bypass in 2004 and had multiple hernia repairs since that time. 3. She also had knee surgery in 2002. 4. She had open cholecystectomy with incisional hernia repair by Dr. Velez in September of 2011. 5. Exploratory laparotomy with abdominal wall reconstruction and old mesh removal in September of 2015. MEDICATIONS ON ADMISSION: 1. Cefdinir 300 milligrams daily. 2. Metronidazole 500 milligrams three times a day. 3. Duloxetine 30 milligrams daily. 4. Holderness 5 milligrams q. 4 PRN. 5. Mirapex 0.5 milligrams at bedtime. 6. Ferrous sulfate 325 milligrams daily. 7. Os-Arnulfo 500 / 200 twice a day. ALLERGIES: THE PATIENT HAS AN ALLERGY TO PENICILLIN WHICH CAUSES A RASH. SOCIAL HISTORY: The patient is and lives at home with her . She quit smoking in 1997. PHYSICAL EXAMINATION: GENERAL: The physical exam reveals a morbidly obese female who is uncomfortable. VITAL SIGNS: Blood pressure is 107/58, pulse 98, respirations 20, temperature 99.1. HEAD, EYES, EARS, NOSE, THROAT: Sclerae anicteric. Pupils reactive. NECK: Neck is supple. Throat is clear. CHEST: Clear to auscultation. CARDIAC: Cardiac exam reveals regular rate and rhythm. ABDOMEN: Abdomen is soft with erythema in the left lower quadrant of the abdomen. There is a well-healed Y-shaped incision with large sutures. On the left side of the abdomen, there is watery stool-like material draining from a small pin hole wound. Pulses are present. NEUROLOGIC: Exam is nonfocal. LABORATORY VALUES: Laboratory values demonstrate WBCs of 15.5 with hemoglobin 6.8, hematocrit 21.0, platelet count 920,200. Electrolytes demonstrate potassium of 3.7, BUN and creatinine of 8 and 0.55. Lipase is normal at 84. IMAGING STUDIES: CT imaging demonstrates large hernia with small and large bowel loops extending into the left lateral abdominal wall area. No free fluid or loculated fluid collections are seen to be in the peritoneal cavity. There is a large amount of subcutaneous emphysema on the abdominal wall at the level of the umbilicus extending over to the lateral wall. Subcutaneous emphysema was also seen in a prior study of January 05, 2016. There is a fluid collection with air in the anterior abdominal wall suspicious for an abscess on the left. 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 PLAN: After discussion with the patient and his , bedside drainage will be performed to release this as the patient has a hemoglobin of 6.8. General anesthesia would be generally contraindicated at this time as she has no signs or symptoms of sepsis or bacteremia. If this is inadequate, after transfusion, the patient will be taken to the operating room. I have discussed this with Dr. Velez and he is agreeable to perform definitive procedure after the patient has received transfusions and is optimized for a more definitive procedure. MD LUCAS Flynn/DERICK /5:48 PM /6:08 PM
[2016-07-28] MEDS: metroNIDAZOLE 500 MG INJ 100 ML IV SCH ×2 (19:32→20:18)
--- NOTE | 2016-07-28 21:11 | HHI.HP ---
[facility] Service Family Medicine Primary Care Physician Navin Bonner M.D. Admission Diagnosis Diagnoses: (1) Abscess of abdominal wall (2) Hypotension (3) Anemia (4) Sepsis (5) Nutrition, metabolism, and development symptoms International Travel<30 Days: No Contact w/Intl Traveler<30days: No Known Affected Area: No History of Present Illness 65 yo F presenting to the ED for abdominal wall abscess/cellulitis vs. fistula. She has a long history of abdominal procedures/surgeries with a recent complex abdominal reconstruction in 10/14. She eventually developed an infection of the mesh and fistula, requiring another procedure (done in [place]) for colonic fistula repair and repair of ventral hernia. She was treated for sepsis with broad spectrum antibiotics while hospitalized, discharged on 07/23/16 on cefdinir and flagyl. Since her discharge, she has noted erythema, firmness, and pain around her abdomen. She pushed on her abdomen this morning and noted a release of fluid that she did not know if it was infection or stool material. She was brought to the ED for further evaluation. She denies fevers or chills. Denies nausea/ vomiting. Denies diaphoresis or lightheadedness. She was seen after surgery had incised 2 areas with drainage of 500ml of purulent/fecal material. Patient states that the pain in her abdomen is much better after the drainage. Review of Systems Constitutional: DENIES: Fever, Chills Respiratory: DENIES: Cough, Sputum production, Shortness of breath Cardiovascular: COMPLAINS OF: Lower Extremity Edema, DENIES: Chest pain, Dyspnea on Exertion Gastrointestinal: COMPLAINS OF: Abdominal pain, DENIES: Bloody stools, Constipation, Diarrhea, Nausea, Vomiting Genitourinary: DENIES: Dysuria Musculoskeletal: DENIES: Stiffness, Joint Swelling Past Family Social History Past Medical History DM Morbid obesity HTN Bowel obstruction Diverticulosis Seizure SLE Past Surgical History Abdominal absess s/p colostomy 2000 with colostomy takedown 2002 Gastric bypass 2004, multiple hernia repairs, knee surgery 2002 Open cholecystectomy and incisional hernia repair with Dr. Velez (October 02-) 10/04/15 ex lap MALINA, abd wall reconstruction, old mesh removal Allergies: Coded Allergies: Penicillin (Verified Allergy, Severe, rash, 07/28/16) Family History No FH of colon cancer Social History Lives at home with Quit smoking in 1997 Physical Exam Vital Signs Vital Signs Date Time Temp Pulse Resp B/P Pulse Ox O2 Delivery O2 Flow Rate FiO2 07/28/16 18:00 100 07/28/16 16:00 99 07/28/16 16:00 98.5 100 32 111/59 96 07/28/16 15:07 99.9 89 20 103/50 07/28/16 14:49 100 20 123/53 98 07/28/16 13:31 82 20 113/53 07/28/16 11:01 98.3 85 20 95/51 07/28/16 10:48 99.1 98 20 107/58 07/28/16 07:32 98.5 102 20 117/70 95 Physical Exam GENERAL: NAD, lying comfortably in bed NEURO: AOx3. 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 SKIN: Warm and dry. Extensive erythema and some edema diffusely over abdomen with two open areas covered with clean bandages. Peeling of skin at lower abdomen HEAD: Normocephalic. Atraumatic. EYES: EOMI. No scleral icterus. No injection or drainage. CARDIOVASCULAR: Regular rate and rhythm without murmurs, gallops, or rubs. Peripheral pulses 2+. Capillary refill < 2 seconds. RESPIRATORY: Fair aeration throughout, without wheezes, rales, or rhonchi. No accessory muscle use. GASTROINTESTINAL: Abdomen soft, tender to palpation over areas of erythema, protuberant. MUSCULOSKELETAL: 2+ bilateral lower extremity edema. Laboratory Laboratory Tests Test 07/28/16 07/28/16 07/28/16 07/28/16 08:15 08:45 09:18 10:38 White Blood Count 16.5 15.5 Red Blood Count 2.64 2.60 Hemoglobin 6.8 6.8 Hematocrit 21.3 21.0 Mean Corpuscular Volume 80.6 80.7 Mean Corpuscular Hemoglobin 25.7 26.3 Mean Corpuscular Hemoglobin 31.9 32.6 Concent Red Cell Distribution Width 16.3 15.9 Platelet Count 941 920 Mean Platelet Volume 6.5 6.4 Neutrophils (%) (Auto) 82.1 80.0 Lymphocytes (%) (Auto) 5.3 6.6 Monocytes (%) (Auto) 11.7 12.7 Eosinophils (%) (Auto) 0.7 0.5 Basophils (%) (Auto) 0.2 0.2 Neutrophils # (Auto) 13.5 12.4 Lymphocytes # (Auto) 0.9 1.0 Monocytes # (Auto) 1.9 2.0 Eosinophils # (Auto) 0.1 0.1 Basophils # (Auto) 0.0 0.0 CBC Comment DIFF FINAL DIFF FINAL Differential Comment Prothrombin Time 13.3 Prothromb Time International 1.2 Ratio Activated Partial 24.6 Thromboplast Time Sodium Level 140 Potassium Level 3.7 Chloride Level 102 Carbon Dioxide Level 33.2 Anion Gap 5 Blood Urea Nitrogen 8 Creatinine 0.55 Estimat Glomerular Filtration 111 Rate Random Glucose 153 Lactic Acid Level 1.8 Calcium Level 7.6 Iron Level 12 Total Iron Binding Capacity 126 Percent Iron Saturation 9.5 Ferritin 116 Total Bilirubin 0.2 Aspartate Amino Transf 4 (AST/SGOT) Alanine Aminotransferase 8 (ALT/SGPT) Alkaline Phosphatase 112 Total Protein 5.1 Albumin 1.3 Lipase 84 Vitamin B12 Level 1524 Folate 18.3 Blood Type B POSITIVE Antibody Screen NEGATIVE Crossmatch Leukocyte-Reduced Red Blood Cells Blood Bank Comment Reticulocyte Count 2.2 Absolute Reticulocyte Count 56.8 Test 07/28/16 12:55 Crossmatch Leukocyte-Reduced Red Blood Cells Blood Bank Comment Date/Time Procedure Status Source Growth 07/28/16 13:15 Aerobic Blood Culture Received Blood Peripheral Pending 07/28/16 13:15 Anaerobic Blood Culture Received Blood Peripheral Pending Result Diagram: 07/28/16 0845 07/28/16 0815 Imaging Last 48 hours Impressions Abdomen/Pelvis CT 07/28/16 0735 Signed Impressions: Service Date/Time: Thursday, July 28, 2016 09:50 - CONCLUSION: 1. There is diffuse and extensive subcutaneous emphysema around the abdominal wall from patient's right lateral abdominal wall all the way across midline to the left lateral abdominal wall. 2. There appears to be of fluid collection in the anterior left abdominal wall suspicious for a subcutaneous abscess. There is nonspecific edema throughout the subcutaneous tissues of the abdominal wall. 3. No acute intra-abdominal/pelvic pathology. 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 She is also found to be anemic and BP hypotensive at 95/51. She will be admitted and managed for the following: Problem List: (1) Sepsis Status: Acute Plan: Plan as per abscess of abdominal wall (2) Abscess of abdominal wall Status: Acute Plan: - Meets sepsis criteria; tachycardic, tachypneic, with leukocytosis - Lactic acid 1.8 - Abdomen/Pelvis CT: Diffuse and extensive subcutaneous emphysema around the abdominal wall from patient's right lateral abdominal wall across midline to left lateral abdominal wall. Fluid collection in anterior left abdominal wall suspicious for subcutaneous abscess. Nonspecific edema throughout subcutaneous tissues. No acute intra-abdominal or pelvic pathology. Given extent of erythema and edema of skin and subcutaneous abscess, we will cover with broad-spectrum antibiotics Broad Spectrum Antibiotics as below: - Vancomycin, pharm consult - Cefepime 2gm IV q8h - Flagyl 500 mg IV q6h Pain control with morphine 4 mg IV q4h prn pain 6-10, hold if SBP < 110 or DBP < 60 Blood cultures ordered Wound culture to be sent from the OR Consult general surgery - Case discussed with Dr. Cordova, general surgeon; who stated the patient will go to the OR tomorrow for likely I&D and possible wound vac (3) Hypotension Status: Acute Plan: - BP on admission 117/70 - Patient became hypotensive to 95/51 while abscess was being drained at bedside - Likely due to sepsis and acute blood loss - Will admit the patient to an ICU given her hypotension with anemia and risk for decompensation - Last ECHO on file from 09/2015 TTE: Normal systolic function, EF estimated 55- 60%; grade 1 diastolic dysfunction - Discussed with Dr. Cordova that if the patient were to develop worsening hypotension overnight, call Dr. Cordova prior to initiating any pressor therapy as the patient may urgently be taken to the OR (4) Anemia Status: Acute Plan: Patient recently treated for sepsis at [facility] - Hgb on admission 6.8 To be transfused 3 units PRBCs for goal of Hgb >9 per surgery Recheck Hgb following transfusion - MCV 80.7 - Iron panel obtained prior to blood transfusions indicating anemia of chronic disease - Consult gastroenterology for possible EGD/colonoscopy for further evaluation - B12 and Folate both elevated - Retic count inappropriately at 2.2 (5) Nutrition, metabolism, and development symptoms Status: Acute Plan: Fluids: Will start this PM ahead of surgery Electrolytes: WNLs, continue to monitor and replete as necessary Nutrition: Clear liquid diet today, NPO after midnight DVT PPX: SCDs. No chemical anticoagulation in anticipation of surgery tomorrow Physician Certification 2 Midnight Certification Type: Admission for Inpatient Services Order for Inpatient Services The services are ordered in accordance with Medicare regulations or non- Medicare payer requirements, as applicable. In the case of services not specified as inpatient-only, they are appropriately provided as inpatient services in accordance with the 2-midnight benchmark. Estimated LOS (days): 2 2 days is the estimated time the patient will need to remain in the hospital, assuming treatment plan goals are met and no additional complications. Post-Hospital Plan: Not yet determined Problem Qualifiers (1) Anemia: Qualified Code: D64.9 - Anemia, unspecified type Fred Mckinney MD Jul 28, 2016 21:11
[2016-07-28 21:22] LABS: AUTOMATED NEUTROPHIL # 8.6 TH/MM3 (1.8-7.7); BASOPHIL % 0.4 % (0.0-2.0); EOSINOPHIL # 0.2 TH/MM3 (0-0.4); EOSINOPHIL % 1.5 % (0.0-4.0); HEMATOCRIT 26.2 % (35.0-46.0); HEMO FLAGS DIFF FINAL; LYMPH % 8.6 % (9.0-44.0); MEAN CELL VOLUME 81.8 FL (80.0-100.0); MEAN CORPUSCULAR HEMOGLOBIN 27.7 PG (27.0-34.0); MEAN CORPUSCULAR HGB CONC 33.9 % (32.0-36.0); NEUT % 75.5 % (16.0-70.0); PLATELET COUNT 879 TH/MM3 (150-450); RED BLOOD COUNT 3.21 MIL/MM3 (4.00-5.30); RED CELL DISTRIBUTION WIDTH 15.5 % (11.6-17.2); WHITE BLOOD COUNT 11.4 TH/MM3 (4.0-11.0)
[2016-07-28 22:18] LABS: BICARBONATE 31.4 MEQ/L (21.0-32.0); POTASSIUM 3.6 MEQ/L (3.5-5.1)
[2016-07-28 22:41] LABS: CALCIUM-PROTEIN CORRECTED 8.5 MG/DL (8.5-10.1)
[2016-07-28] MEDS ORDERED: CHLORHEXIDINE GLUCONATE 2 % 1 PACK (2 CLOTHS)(extra cloths) TOP PRN (23:45)
[2016-07-29] VITALS (16 sets, daily range): BP systolic 102–119; BP diastolic 55–60; PULSE 72–102; RESP 18–25; TEMP 97.7–99.7; O2SAT 95–100
[2016-07-29] MEDS ORDERED: CALCIUM CARBONATE 500 MG CHEWABLE TAB CHEW ONE (01:00)
[2016-07-29] MEDS: metroNIDAZOLE 500 MG INJ 100 ML IV SCH ×4 (02:26→20:37)
[2016-07-29] MEDS: CHLORHEXIDINE GLUCONATE 2 % 1 PACK (2 CLOTHS)(taper/protocol) TOP SCH (04:00)
[2016-07-29] MEDS: CEFEPIME INJ 2,000 MG in SODIUM CHLORIDE 0.9% INJ 100 ML IV SCH ×3 (06:30→21:57)
[2016-07-29] MEDS: SODIUM CHLOR 0.9% 1000 ML INJ 1,000 ML IV SCH ×3 (06:31→15:28)
--- NOTE | 2016-07-29 08:29 | HHI.FPPN ---
Subjective Remarks Patient seen and examined this am. Low BP overnight and this am. States she has pain overnight, and has constant urge to urinate. Morphine held intermittently due to low BP. She is complaining of some SOB with movement, was placed on nasal canula. ( Beatriz Isaacs MD R3) Objective Vitals Vital Signs Date Time Temp Pulse Resp B/P Pulse Ox O2 Delivery O2 Flow Rate FiO2 07/29/16 07:40 98.2 07/29/16 06:00 85 07/29/16 04:00 99.3 102 25 119/56 95 07/29/16 04:00 102 07/29/16 02:00 91 07/29/16 00:20 99.3 07/29/16 00:00 99.7 07/29/16 00:00 99.7 93 22 104/55 95 07/29/16 00:00 93 07/28/16 22:00 92 07/28/16 20:00 98.6 97 23 98/51 95 07/28/16 20:00 97 07/28/16 18:00 100 07/28/16 16:00 99 07/28/16 16:00 98.5 100 32 111/59 96 07/28/16 15:07 99.9 89 20 103/50 07/28/16 14:49 100 20 123/53 98 07/28/16 13:31 82 20 113/53 07/28/16 11:01 98.3 85 20 95/51 07/28/16 10:48 99.1 98 20 107/58 I/O 07/28/16 07/28/16 07/28/16 07/29/16 07/29/16 07/29/16 07:00 15:00 23:00 07:00 15:00 23:00 Intake Total 2000 ml 240 ml 1100 ml Output Total 1150 ml 650 ml Balance 2000 ml -910 ml 450 ml Intake Oral 240 ml IV Total 2000 ml 850 ml Packed Cells 250 ml Output Urine Total 250 ml Stool Total 900 ml 650 ml # Voids 2 3 (Beatriz Isaacs MD R3) Result Diagram: 07/28/16203107/28/162031 Imaging Last Impressions Abdomen/Pelvis CT 07/28/16 0735 Signed Impressions: Service Date/Time: Thursday, July 28, 2016 09:50 - CONCLUSION: 1. There is diffuse and extensive subcutaneous emphysema around the abdominal wall from patient's right lateral abdominal wall all the way across midline to the left lateral abdominal wall. 2. There appears to be of fluid collection in the anterior left abdominal wall suspicious for a subcutaneous abscess. There is nonspecific edema throughout the subcutaneous tissues of the abdominal wall. 3. No acute intra-abdominal/pelvic pathology. Fred Solis MD Objective Remarks GENERAL: NAD, lying in bed, appears uncomfortable NEURO: AOx3. 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 gas dispatcher grossly intact. SKIN: Warm and dry. Extensive erythema and some edema diffusely over abdomen with two open areas with overlying fistula bag draining purulent material with mixed fecal material. HEAD: Normocephalic. Atraumatic. EYES: EOMI. No scleral icterus. No injection or drainage. ENT: No nasal drainage. Moist mucous membranes. No oral ulcers or lesions. NECK: Supple, trachea midline. No JVD. CARDIOVASCULAR: Regular rate and rhythm without murmurs, gallops, or rubs. Peripheral pulses 2+. Capillary refill < 2 seconds. RESPIRATORY: Fair aeration throughout, without wheezes, rales, or rhonchi. No accessory muscle use. GASTROINTESTINAL: Abdomen soft, tender to palpation over areas of erythema, protuberant. MUSCULOSKELETAL: 2+ bilateral lower extremity edema worse than yesterday.. 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 She is also found to be anemic and BP hypotensive at 95/51. She will be admitted and managed for the following: Discharge Planning D/C pending further workup by general surgery. seen and discussed with Reynaldo Obando Newby-Goodman (Beatriz Isaacs MD R3) Attending Attestation Patient examined and case discussed with resident physicians I have read the above note and agree with the assessment/plan as discussed with me I was involved in all medical decision making for this patient Fred Mckinney M.D. (Fred Mckinney MD) Problem List: (1) SOB (shortness of breath) Status: Acute Plan: SOB overnight, now requiring nasal canula. Could be due to fluid overload as a result of aggressive resuscitation with fluids. - CXR ordered - IVF cut down to 100cc/hr, continue to evaluate and decrease as needed (2) Sepsis Status: Acute Plan: See plan below. - UA ordered (3) Abscess of abdominal wall Status: Acute Plan: - Meets sepsis criteria; tachycardic, tachypneic, with leukocytosis, Lactic acid 1.8 - Abdomen/Pelvis CT: Diffuse and extensive subcutaneous emphysema around the abdominal wall from patient's right lateral abdominal wall across midline to left lateral abdominal wall. Fluid collection in anterior left abdominal wall suspicious for subcutaneous abscess. Nonspecific edema throughout subcutaneous tissues. No acute intra-abdominal or pelvic pathology. Given extent of erythema and edema of skin and subcutaneous abscess, we will cover with broad-spectrum antibiotics Broad Spectrum Antibiotics as below: - Vancomycin, pharm consult - Cefepime 2gm IV q8h - Flagyl 500 mg IV q6h Pain control with morphine 4 mg IV q4h prn pain 6-10, hold if SBP < 110 or DBP < 60 Blood cultures ordered Wound culture to be sent from the OR Consult general surgery - Case discussed with Dr. Cordova, general surgeon; who stated the patient will go to the OR today for likely I&D and possible wound vac (4) Hypotension Status: Acute Plan: - Stable overnight. - Likely due to sepsis and acute blood loss - Will admit the patient to an ICU given her hypotension with anemia and risk for decompensation - Last ECHO on file from 09/2015 TTE: Normal systolic function, EF estimated 55- 60%; grade 1 diastolic dysfunction - Discussed with Dr. Cordova that if the patient were to develop worsening hypotension overnight, call Dr. Cordova prior to initiating any pressor therapy as the patient may urgently be taken to the OR (5) Anemia Status: Acute Plan: - Hgb on admission 6.8, s/p 3 units now 8.9, additional unit ordered - MCV 80.7 - Iron panel obtained prior to blood transfusions indicating anemia of chronic disease - Consult gastroenterology for possible EGD/colonoscopy for further evaluation - B12 and Folate both elevated - Retic count inappropriately at 2.2 (6) Nutrition, metabolism, and development symptoms Status: Acute Plan: Fluids: NS Electrolytes: WNLs, continue to monitor and replete as necessary Nutrition: NPO DVT PPX: SCDs. No chemical anticoagulation in anticipation of surgery tomorrow (Beatriz Isaacs MD R3) Problem Qualifiers (1) Anemia: Qualified Code: D64.9 - Anemia, unspecified type Beatriz Isaacs MD R3 Jul 29, 2016 08:29 Fred Mckinney MD Jul 29, 2016 13:12
[2016-07-29] MEDS: SODIUM CHLORIDE 0.9% FLUSH 5 ML FLUSH FLUSH SCH ×2 (09:00→20:37)
[2016-07-29 10:01] LABS: BLOOD, URINE NEG (NEG); GLUCOSE,URINE TRACE mg/dL (NEG); KETONE, URINE NEG (NEG); MUCUS URINE FEW /lpf (OCC); NITRITE,URINE NEG (NEG); SQUAMOUS EPITHELIAL CELL URINE <1 /hpf (0-5); URINE COLOR YELLOW (YELLW/STRAW)
[2016-07-29 10:03] LABS: COMMENT (UR) CATH-CULT NOT IND; CULTURE IF INDICATED CATH CULTURE NOT IND
--- NOTE | 2016-07-29 10:23 | RADRPT ---
EXAM DATE/TIME: 07/29/2016 09:32 [facility] COMPARISON: CHEST SINGLE AP, November 07, 2015, 18:45. INDICATIONS : Shortness of breath. MEDICAL HISTORY : None. SURGICAL HISTORY : Gastric bypass. ENCOUNTER: Initial ACUITY: 1 day PAIN SCORE: 0/10 LOCATION: Bilateral chest FINDINGS: There is a platelike infiltrate in the right lower lung suggestive of atelectasis. The left lung is g rossly clear with some minimal atelectasis in the left lung base. Otherwise the lungs are clear. The heart size is enlarged but stable. There are no pleural effusions or pulmonary edema. There are degen erative changes of the thoracic spine which are stable. CONCLUSION: 1. Bibasilar atelectasis, right greater than left. 2. Compensated cardiomegaly. Fred Solis MD on July 29, 2016 at 10:21 Board Certified Radiologist. This report was verified electronically.
[2016-07-29] MEDS ORDERED: ACETAMINOPHEN 1000 MG/100 ML VIAL IV ONE (10:25)
[2016-07-29] MEDS ORDERED: fentaNYL CITRATE 250 MCG/5 ML AMP ONE (10:25)
[2016-07-29] MEDS ORDERED: MIDAZOLAM HCL 2 MG/2 ML VIAL ONE (10:25)
[2016-07-29] MEDS ORDERED: DICLOFENAC SODIUM 37.5 MG/ML VIAL IV PUSH ONE (10:25)
[2016-07-29 10:48] LABS: AUTOMATED NEUTROPHIL # 6.4 TH/MM3 (1.8-7.7); BASOPHIL % 0.4 % (0.0-2.0); EOSINOPHIL # 0.1 TH/MM3 (0-0.4); EOSINOPHIL % 1.6 % (0.0-4.0); HEMATOCRIT 30.1 % (35.0-46.0); HEMO FLAGS DIFF FINAL; LYMPH % 10.2 % (9.0-44.0); LYMPHOCYTE # 0.9 TH/MM3 (1.0-4.8); MEAN CELL VOLUME 82.8 FL (80.0-100.0); MEAN CORPUSCULAR HEMOGLOBIN 27.7 PG (27.0-34.0); MEAN CORPUSCULAR HGB CONC 33.4 % (32.0-36.0); MONO % 15.6 % (0.0-8.0); NEUT % 72.2 % (16.0-70.0); PLATELET COUNT 965 TH/MM3 (150-450); RED BLOOD COUNT 3.63 MIL/MM3 (4.00-5.30); RED CELL DISTRIBUTION WIDTH 15.7 % (11.6-17.2); WHITE BLOOD COUNT 8.8 TH/MM3 (4.0-11.0)
[2016-07-29 10:52] LABS: INTERNATIONAL NORMALIZED RATIO 1.2 RATIO; PROTHROMBIN TIME - PATIENT 13.1 SEC (9.8-11.6)
[2016-07-29] MEDS ORDERED: ALBUMIN HUMAN 5% 12.5 GM/250 ML BOTTLE IV ONE (11:02)
[2016-07-29 11:10] LABS: ALKALINE PHOSPHATASE 91 U/L (45-117); ALT (GPT) LESS THAN 6 U/L (10-53); ANION GAP 7 MEQ/L (5-15); AST (GOT) 4 U/L (15-37); BICARBONATE 30.1 MEQ/L (21.0-32.0); BLOOD UREA NITROGEN 7 MG/DL (7-18); CHLORIDE 105 MEQ/L (98-107); GLOMERULAR FILTRATION RATE 147 ML/MIN (>89); POTASSIUM 3.7 MEQ/L (3.5-5.1); SODIUM (NA) 142 MEQ/L (136-145); TOTAL BILIRUBIN ADULT 0.5 MG/DL (0.2-1.0)
[2016-07-29] MEDS ORDERED: Post-op Orders (for Pharmacy) MISC XX ONE (12:15)
[2016-07-29] MEDS ORDERED: DO NOT ADM ANY ANTICOAGULANT DRUGS XX PRN (12:29)
[2016-07-29] MEDS: VANCOMYCIN 1,500 MG/NS 500 ML IV SCH ×2 (13:00)
[2016-07-29] MEDS ORDERED: *morphine SULFATE 8 MG/ML PERIprocedure ONLY ONE (13:25)
[2016-07-29] MEDS ORDERED: ONDANSETRON HCL 4 MG/2 ML VIAL IV PUSH ONE (14:17)
[2016-07-29] MEDS ORDERED: PROPOFOL 200 MG/20 ML AMP IV ONE (14:17)
[2016-07-29] MEDS ORDERED: ePHEDrine/NS 25 MG/5 ML SYR IV ONE (14:17)
[2016-07-29] MEDS ORDERED: PHENYLEPH/NS 1000 MCG/10 ML SYR IV ONE (14:17)
[2016-07-29] MEDS ORDERED: NORMOSOL R INJ 2,000 ML IV ONE (14:17)
[2016-07-29] MEDS ORDERED: NEOSTIGMINE 3 MG/3 ML SYR IV ONE (14:17)
--- NOTE | 2016-07-29 14:21 | HHI.GIFU ---
GI Follow-up Note Consult Follow-up Subjective: Patient laying in bed comfortably, s/p abscess drainage today. no active bleeding, hb better after prbc.No nausea, vomiting, abdominal pain, melena, hematemesis . On CPAP Objective: PHYSICAL EXAMINATION: Vitals signs stable No fever Vital Signs Date Time Temp Pulse Resp B/P Pulse Ox O2 Delivery O2 Flow Rate FiO2 07/29/16 13:30 97.1 89 14 112/65 99 07/29/16 13:15 92 18 102/60 99 07/29/16 13:00 101 22 101/64 99 07/29/16 12:45 114 24 114/68 98 07/29/16 12:40 124 22 91 Bi-Pap 70 07/29/16 12:35 97 70 07/29/16 12:30 97.8 121 26 161/90 86 Simple Mask 15 07/29/16 10:00 85 07/29/16 08:00 81 07/29/16 08:00 91 25 109/56 95 07/29/16 07:40 98.2 HEENT: Pupils round and reactive to light; normocephalic; atraumatic; no jaundice. Throat is clear. NECK: Neck is supple, no JVD, no lymphadenopathy. CHEST: Chest is clear to auscultation and percussion. CARDIAC: Regular rate and rhythm with no murmur gallop or rubs. ABDOMEN: Soft, nondistended, nontender; no hepatosplenomegaly; bowel sounds are present in all four quadrants, obese, drainage in llq, recent surgical scar right side of abdomen EXTREMITIES: No clubbing, cyanosis, or edema. SKIN: Normal; no rash; no jaundice. 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 Available Data (labs, X- Rays, Procedues) : Laboratory Tests Test 07/28/16 07/28/16 07/28/16 07/28/16 08:15 08:45 09:18 10:38 White Blood Count 16.5 TH/MM3 15.5 TH/MM3 Red Blood Count 2.64 MIL/MM3 2.60 MIL/MM3 Hemoglobin 6.8 GM/DL 6.8 GM/DL Hematocrit 21.3 % 21.0 % Mean Corpuscular Volume 80.6 FL 80.7 FL Mean Corpuscular Hemoglobin 25.7 PG 26.3 PG Mean Corpuscular Hemoglobin 31.9 % 32.6 % Concent Red Cell Distribution Width 16.3 % 15.9 % Platelet Count 941 TH/MM3 920 TH/MM3 Mean Platelet Volume 6.5 FL 6.4 FL Neutrophils (%) (Auto) 82.1 % 80.0 % Lymphocytes (%) (Auto) 5.3 % 6.6 % Monocytes (%) (Auto) 11.7 % 12.7 % Eosinophils (%) (Auto) 0.7 % 0.5 % Basophils (%) (Auto) 0.2 % 0.2 % Neutrophils # (Auto) 13.5 TH/MM3 12.4 TH/MM3 Lymphocytes # (Auto) 0.9 TH/MM3 1.0 TH/MM3 Monocytes # (Auto) 1.9 TH/MM3 2.0 TH/MM3 Eosinophils # (Auto) 0.1 TH/MM3 0.1 TH/MM3 Basophils # (Auto) 0.0 TH/MM3 0.0 TH/MM3 CBC Comment DIFF FINAL DIFF FINAL Differential Comment Prothrombin Time 13.3 SEC Prothromb Time International 1.2 RATIO Ratio Activated Partial 24.6 SEC Thromboplast Time Sodium Level 140 MEQ/L Potassium Level 3.7 MEQ/L Chloride Level 102 MEQ/L Carbon Dioxide Level 33.2 MEQ/L Anion Gap 5 MEQ/L Blood Urea Nitrogen 8 MG/DL Creatinine 0.55 MG/DL Estimat Glomerular Filtration 111 ML/MIN Rate Random Glucose 153 MG/DL Lactic Acid Level 1.8 mmol/L Calcium Level 7.6 MG/DL Iron Level 12 MCG/DL Total Iron Binding Capacity 126 MCG/DL Percent Iron Saturation 9.5 % Ferritin 116 NG/ML Total Bilirubin 0.2 MG/DL Aspartate Amino Transf 4 U/L (AST/SGOT) Alanine Aminotransferase 8 U/L (ALT/SGPT) Alkaline Phosphatase 112 U/L Total Protein 5.1 GM/DL Albumin 1.3 GM/DL Lipase 84 U/L Vitamin B12 Level 1524 PG/ML Folate 18.3 NG/ML Blood Type B POSITIVE Antibody Screen NEGATIVE Crossmatch Leukocyte-Reduced Red Blood Cells Blood Bank Comment Reticulocyte Count 2.2 % Absolute Reticulocyte Count 56.8 MIL/L Test 07/28/16 07/28/16 07/28/16 07/28/16 12:55 18:30 20:32 22:55 Crossmatch Leukocyte-Reduced Leukocyte-Reduced Red Blood Red Blood Cells Cells Blood Bank Comment Nasal Screen MRSA (PCR) NEGATIVE White Blood Count 11.4 TH/MM3 Red Blood Count 3.21 MIL/MM3 Hemoglobin 8.9 GM/DL Hematocrit 26.2 % Mean Corpuscular Volume 81.8 FL Mean Corpuscular Hemoglobin 27.7 PG Mean Corpuscular Hemoglobin 33.9 % Concent Red Cell Distribution Width 15.5 % Platelet Count 879 TH/MM3 Mean Platelet Volume 6.6 FL Neutrophils (%) (Auto) 75.5 % Lymphocytes (%) (Auto) 8.6 % Monocytes (%) (Auto) 14.0 % Eosinophils (%) (Auto) 1.5 % Basophils (%) (Auto) 0.4 % Neutrophils # (Auto) 8.6 TH/MM3 Lymphocytes # (Auto) 1.0 TH/MM3 Monocytes # (Auto) 1.6 TH/MM3 Eosinophils # (Auto) 0.2 TH/MM3 Basophils # (Auto) 0.0 TH/MM3 CBC Comment DIFF FINAL Differential Comment Sodium Level 141 MEQ/L Potassium Level 3.6 MEQ/L Chloride Level 105 MEQ/L Carbon Dioxide Level 31.4 MEQ/L Anion Gap 5 MEQ/L Blood Urea Nitrogen 8 MG/DL Creatinine 0.49 MG/DL Estimat Glomerular Filtration 126 ML/MIN Rate Random Glucose 118 MG/DL Calcium Level 7.3 MG/DL Protein Corrected Calcium 8.5 MG/DL Total Protein 4.9 GM/DL Blood Type B POSITIVE Test 07/29/16 07/29/16 09:30 10:04 Urine Color YELLOW Urine Turbidity CLEAR Urine pH 6.0 Urine Specific [place] 1.019 Urine Protein TRACE mg/dL Urine Glucose (UA) TRACE mg/dL Urine Ketones NEG mg/dL Urine Occult Blood NEG Urine Nitrite NEG Urine Bilirubin NEG Urine Urobilinogen LESS THAN 2.0 MG/DL Urine Leukocyte Esterase NEG Urine RBC 1 /hpf Urine WBC 1 /hpf Urine Squamous Epithelial <1 /hpf Cells Urine Mucus FEW /lpf Microscopic Urinalysis Comment CATH-CULT NOT IND White Blood Count 8.8 TH/MM3 Red Blood Count 3.63 MIL/MM3 Hemoglobin 10.1 GM/DL Hematocrit 30.1 % Mean Corpuscular Volume 82.8 FL Mean Corpuscular Hemoglobin 27.7 PG Mean Corpuscular Hemoglobin 33.4 % Concent Red Cell Distribution Width 15.7 % Platelet Count 965 TH/MM3 Mean Platelet Volume 6.5 FL Neutrophils (%) (Auto) 72.2 % Lymphocytes (%) (Auto) 10.2 % Monocytes (%) (Auto) 15.6 % Eosinophils (%) (Auto) 1.6 % Basophils (%) (Auto) 0.4 % Neutrophils # (Auto) 6.4 TH/MM3 Lymphocytes # (Auto) 0.9 TH/MM3 Monocytes # (Auto) 1.4 TH/MM3 Eosinophils # (Auto) 0.1 TH/MM3 Basophils # (Auto) 0.0 TH/MM3 CBC Comment DIFF FINAL Differential Comment Prothrombin Time 13.1 SEC Prothromb Time International 1.2 RATIO Ratio Sodium Level 142 MEQ/L Potassium Level 3.7 MEQ/L Chloride Level 105 MEQ/L Carbon Dioxide Level 30.1 MEQ/L Anion Gap 7 MEQ/L Blood Urea Nitrogen 7 MG/DL Creatinine 0.43 MG/DL Estimat Glomerular Filtration 147 ML/MIN Rate Random Glucose 101 MG/DL Calcium Level 7.8 MG/DL Total Bilirubin 0.5 MG/DL Aspartate Amino Transf 4 U/L (AST/SGOT) Alanine Aminotransferase LESS THAN 6 U/L (ALT/SGPT) Alkaline Phosphatase 91 U/L Total Protein 5.1 GM/DL Albumin 1.3 GM/DL ASSESSMENT/PLAN: acute anemia-post op -no indication of gi bleeding at this point abdominal abscess s/p drainage today s/p recent abdominal wall reconstruction and small bowel fistulae repair Recommendations supportive care monitor hb/hct closely if hb continues to drop or active bleeding we will schedule egd/colonoscopy bleeding scan if active bleeding ppi transfuse prn It was a pleasure seeing Halle Navarro. Thank you for this consult. Entered by: Lora Maya MD Jul 29, 2016 14:21
[2016-07-29] MEDS: MORPHINE SULFATE 4 MG/ML INJ IV PUSH PRN ×2 (16:22→20:36)
[2016-07-29] MEDS: SODIUM CHLORIDE 0.9% FLUSH 5 ML FLUSH IVF SCH (20:37)
[2016-07-30] VITALS (15 sets, daily range): BP systolic 89–113; BP diastolic 49–55; PULSE 66–94; RESP 18–24; TEMP 97.8–99; O2SAT 97–100
[2016-07-30] MEDS: MORPHINE SULFATE 4 MG/ML INJ IV PUSH PRN ×2 (00:30→04:18)
[2016-07-30] MEDS: SODIUM CHLOR 0.9% 1000 ML INJ 1,000 ML IV SCH ×2 (00:56→12:13)
[2016-07-30] MEDS: metroNIDAZOLE 500 MG INJ 100 ML IV SCH ×4 (01:03→21:28)
[2016-07-30] MEDS: CHLORHEXIDINE GLUCONATE 2 % 1 PACK (2 CLOTHS)(taper/protocol) TOP SCH (04:00)
[2016-07-30 04:16] LABS: BASOPHIL % 0.5 % (0.0-2.0); EOSINOPHIL # 0.1 TH/MM3 (0-0.4); EOSINOPHIL % 0.7 % (0.0-4.0); HEMO FLAGS DIFF FINAL; LYMPH % 13.3 % (9.0-44.0); LYMPHOCYTE # 1.1 TH/MM3 (1.0-4.8); MEAN CELL VOLUME 84.2 FL (80.0-100.0); MEAN CORPUSCULAR HEMOGLOBIN 27.8 PG (27.0-34.0); MONO % 14.1 % (0.0-8.0); NEUT % 71.4 % (16.0-70.0); PLATELET COUNT 968 TH/MM3 (150-450); RED BLOOD COUNT 3.44 MIL/MM3 (4.00-5.30); RED CELL DISTRIBUTION WIDTH 16.4 % (11.6-17.2); WHITE BLOOD COUNT 8.4 TH/MM3 (4.0-11.0)
[2016-07-30 04:46] LABS: BICARBONATE 30.1 MEQ/L (21.0-32.0)
[2016-07-30] MEDS: VANCOMYCIN 1,500 MG/NS 500 ML IV SCH ×2 (05:13)
[2016-07-30] MEDS: CEFEPIME INJ 2,000 MG in SODIUM CHLORIDE 0.9% INJ 100 ML IV SCH ×3 (05:13→22:59)
[2016-07-30] MEDS: SODIUM CHLORIDE 0.9% FLUSH 5 ML FLUSH FLUSH SCH ×2 (08:34→21:00)
[2016-07-30] MEDS: SODIUM CHLORIDE 0.9% FLUSH 5 ML FLUSH IVF SCH ×2 (08:35→21:00)
--- NOTE | 2016-07-30 09:28 | HHI.PR ---
Subjective Subjective Notes DAILY PROGRESS NOTE FOR SURGICAL ATTENDING, DR. LANDRY VELEZ Feels okay A little thirsty Objective Vitals/I&O Vital Signs Date Time Temp Pulse Resp B/P Pulse Ox O2 Delivery O2 Flow Rate FiO2 07/30/16 06:00 73 07/30/16 04:00 98.0 24 99/52 99 07/29/16 20:28 Nasal Cannula 2.00 07/29/16 12:40 70 Labs Laboratory Tests Test 07/29/16 07/29/16 07/30/16 09:30 10:04 03:25 Urine Color YELLOW Urine Turbidity CLEAR Urine pH 6.0 Urine Specific [place] 1.019 Urine Protein TRACE Urine Glucose (UA) TRACE Urine Ketones NEG Urine Occult Blood NEG Urine Nitrite NEG Urine Bilirubin NEG Urine Urobilinogen LESS THAN 2.0 Urine Leukocyte Esterase NEG Urine RBC 1 Urine WBC 1 Urine Squamous Epithelial <1 Cells Urine Mucus FEW Microscopic Urinalysis Comment CATH-CULT NOT IND White Blood Count 8.8 8.4 Red Blood Count 3.63 3.44 Hemoglobin 10.1 9.6 Hematocrit 30.1 29.0 Mean Corpuscular Volume 82.8 84.2 Mean Corpuscular Hemoglobin 27.7 27.8 Mean Corpuscular Hemoglobin 33.4 33.0 Concent Red Cell Distribution Width 15.7 16.4 Platelet Count 965 968 Mean Platelet Volume 6.5 6.6 Neutrophils (%) (Auto) 72.2 71.4 Lymphocytes (%) (Auto) 10.2 13.3 Monocytes (%) (Auto) 15.6 14.1 Eosinophils (%) (Auto) 1.6 0.7 Basophils (%) (Auto) 0.4 0.5 Neutrophils # (Auto) 6.4 6.0 Lymphocytes # (Auto) 0.9 1.1 Monocytes # (Auto) 1.4 1.2 Eosinophils # (Auto) 0.1 0.1 Basophils # (Auto) 0.0 0.0 CBC Comment DIFF FINAL DIFF FINAL Differential Comment Prothrombin Time 13.1 Prothromb Time International 1.2 Ratio Sodium Level 142 146 Potassium Level 3.7 4.0 Chloride Level 105 110 Carbon Dioxide Level 30.1 30.1 Anion Gap 7 6 Blood Urea Nitrogen 7 7 Creatinine 0.43 0.42 Estimat Glomerular Filtration 147 151 Rate Random Glucose 101 101 Calcium Level 7.8 7.8 Total Bilirubin 0.5 Aspartate Amino Transf 4 (AST/SGOT) Alanine Aminotransferase LESS THAN 6 (ALT/SGPT) Alkaline Phosphatase 91 Total Protein 5.1 Albumin 1.3 Date/Time Procedure Status Source Growth 07/28/16 13:15 Aerobic Blood Culture - Preliminary Resulted Blood Peripheral NO GROWTH IN 1 DAY 07/28/16 13:15 Anaerobic Blood Culture - Preliminary Resulted Blood Peripheral NO GROWTH IN 1 DAY Radiology Last Impressions Chest X-Ray 07/29/16 0000 Signed Impressions: Service Date/Time: Friday, July 29, 2016 09:32 - CONCLUSION: 1. Bibasilar atelectasis, right greater than left. 2. Compensated cardiomegaly. Fred Solis MD Abdomen/Pelvis CT 07/28/16 0735 Signed Impressions: Service Date/Time: Thursday, July 28, 2016 09:50 - CONCLUSION: 1. There is diffuse and extensive subcutaneous emphysema around the abdominal wall from patient's right lateral abdominal wall all the way across midline to the left lateral abdominal wall. 2. There appears to be of fluid collection in the anterior left abdominal wall suspicious for a subcutaneous abscess. There is nonspecific edema throughout the subcutaneous tissues of the abdominal wall. 3. No acute intra-abdominal/pelvic pathology. 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 Plan return to the operating room for reevaluation on Saturday Landry Velez MD Jul 30, 2016 09:28
--- NOTE | 2016-07-30 11:28 | HHI.FPPN ---
Subjective Remarks Pt seen and examined this morning. No acute events overnight. Pt has been afebrile, BP ranging from [id number]/50s60s. POD day #1, status post incision and drainage and washout of left abdominal wall, with wound vac placement due to small bowel fistulae. Patient endorses pain of left lower quadrant where wound vac is placed and dry mouth, as she has been NPO. Her diet was advanced to clear liquids this morning. She denies headaches, vision changes, chest pain , shortness of breath, lower extremity pain. (Sumaya Wheeler MD R2) Objective Vitals Vital Signs Date Time Temp Pulse Resp B/P Pulse Ox O2 Delivery O2 Flow Rate FiO2 07/30/16 08:00 98.1 76 19 89/53 98 07/30/16 07:00 99 Nasal Cannula 2.00 07/30/16 06:00 73 07/30/16 04:00 98.0 73 24 99/52 99 07/30/16 04:00 73 07/30/16 02:00 66 07/30/16 00:00 97.8 68 18 98/55 98 07/30/16 00:00 68 07/29/16 22:00 75 07/29/16 20:28 99 Nasal Cannula 2.00 07/29/16 20:00 98 Nasal Cannula 2.00 07/29/16 20:00 75 07/29/16 20:00 97.9 75 18 102/55 99 07/29/16 18:04 98 Nasal Cannula 3.00 07/29/16 18:00 72 07/29/16 16:27 22 07/29/16 16:00 98.3 89 20 105/60 98 07/29/16 16:00 79 07/29/16 14:00 97.7 91 25 104/59 100 07/29/16 14:00 91 07/29/16 13:30 97.1 89 14 112/65 99 07/29/16 13:15 92 18 102/60 99 07/29/16 13:00 101 22 101/64 99 07/29/16 12:45 114 24 114/68 98 07/29/16 12:40 124 22 91 Bi-Pap 70 07/29/16 12:35 97 70 07/29/16 12:30 97.8 121 26 161/90 86 Simple Mask 15 I/O 07/29/16 07/29/16 07/29/16 07/30/16 07/30/16 07/30/16 07:00 15:00 23:00 07:00 15:00 23:00 Intake Total 1100 ml 1750 ml 2490 ml 1351 ml Output Total 650 ml 1520 ml 1110 ml 610 ml Balance 450 ml 230 ml 1380 ml 741 ml Intake Oral 600 ml 400 ml IV Total 850 ml 200 ml 1890 ml 951 ml Albumin 250 ml Packed Cells 250 ml Other 1300 ml Output Urine Total 1425 ml 950 ml 450 ml Stool Total 650 ml Drainage Total 70 ml 160 ml 160 ml Estimated Blood Loss 25 ml # Voids 3 (Sumaya Wheeler MD R2) Result Diagram: 07/30/1632407/30/16324 Objective Remarks GENERAL: NAD, lying in bed, appears uncomfortable NEURO: AOx3. 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 SKIN: Warm and dry. Patient with wound VAC over left lower quadrant, mild erythema surrounding site. No signs of infection. Midline incision held together with sutures, no drainage. Horizontal Incision over right lower quadrant, held with sutures, no drainage. HEAD: Normocephalic. Atraumatic. EYES: EOMI. No scleral icterus. No injection or drainage. ENT: No nasal drainage. Dry mucous membranes. NECK: Supple, trachea midline. No JVD. CARDIOVASCULAR: Regular rate and rhythm without murmurs, gallops, or rubs RESPIRATORY: Anterior lung field auscultated as pt movement limited due to pain , clear to auscultation. No accessory muscle use. GASTROINTESTINAL: Abdomen soft, obese, wound vac and incisions, see skin above. Exquisitely tender to palpation in left lower quadrant, tender to palpation over remainder of abdomen. MUSCULOSKELETAL: 1-2+ bilateral lower extremity edema. (Sumaya Wheeler MD R2) A/P Assessment and Plan 65 year old female with multiple prior abdominal procedures presents from home to the ED for evaluation of a draining subcutaneous abscess since this morning and possible colocutaneous fistula. She is also found to be anemic and BP hypotensive at 95/51. She will be admitted and managed for the following: Discharge Planning D/C pending clearance by general surgery. Time frame is unclear as patient is anticipated to return to the OR on Saturday. sdw Dr. Sebastian wdw Dr. Mckinney (Sumaya Wheeler MD R2) Attending Attestation Pt. examined and case discussed with resident physicians I have read the above note and agree with the assessment/plan as discussed with me I was involved in all medical decision making for this patient Fred Mckinney MD (Fred Mckinney MD) Problem List: (1) SOB (shortness of breath) Status: Resolved Plan: SOB resolved. Possibly due to aggressive fluid hydration and fluid overload. - CXR 07/29: Bibasilar atelectasis, right greater than left. Compensated cardiomegaly. - Incentive spirometry - IVF 100cc/hr, consider decreasing depending how patient tolerates by mouth diet. (2) Sepsis Status: Acute Plan: See plan below. - UA WNL, no culture indicated (3) Abscess of abdominal wall Status: Acute Plan: Patient with significant abscess of abdominal wall and enterocutaneous fistula General Surgery Consulted, appreciate recommendation and interventions - POD day #1, status post incision and drainage and washout of left abdominal wall, with wound vac placement due to small bowel fistulae. -Plan for patient to return to OR for reevaluation on Saturday -Pain control with Latimer 7.5-325 mg po Q4hrs prn pain 6-10, morphine 2 mg IV q3h prn breakthrough, hold if SBP < 110 or DBP < 60 -Blood cultures NGTD -Met sepsis criteria; tachycardic, tachypneic, with leukocytosis, Lactic acid 1.8 on admission Broad Spectrum Antibiotics: - Vancomycin, pharm consult (07/28- ) - Cefepime 2gm IV q8h (07/28- ) - Flagyl 500 mg IV q6h (07/28- ) Imaging 07/28 - Abdomen/Pelvis CT: Diffuse and extensive subcutaneous emphysema around the abdominal wall from patient's right lateral abdominal wall across midline to left lateral abdominal wall. Fluid collection in anterior left abdominal wall suspicious for subcutaneous abscess. Nonspecific edema throughout subcutaneous tissues. No acute intra-abdominal or pelvic pathology. Given extent of erythema and edema of skin and subcutaneous abscess, we will cover with broad-spectrum antibiotics (4) Hypotension Status: Acute Plan: - Stable overnight, BP ranging from [id number]/50s60s. - Possibly due to sepsis - Use caution with fluids due to concern for fluid overload - Continue to monitor (5) Anemia Status: Acute Plan: - Hgb on admission 6.8, s/p 4 units on 07/28 - H&H 9.6 and 29.0 respectively this morning, improving - Continue to monitor - Iron panel significant for anemia of chronic disease - B12 and Folate both elevated - GI consulted, appreciate recommendations. - No indication of GI bleed at this time. If H&H continues to drop we'll consider EGD versus colonoscopy versus a bleeding scan -PPI: Protonix 40 mg IV daily -Transfuse as needed (6) Nutrition, metabolism, and development symptoms Status: Acute Plan: Fluids: NS Electrolytes: WNLs, continue to monitor and replete as necessary Nutrition: NPO DVT PPX: SCDs. No chemical anticoagulation in anticipation of return to OR GI PPX: 40 mg Protonix IV daily (Sumaya Wheeler MD R2) Problem Qualifiers (1) Anemia: Qualified Code: D64.9 - Anemia, unspecified type Sumaya Wheeler MD R2 Jul 30, 2016 11:28 Fred Mckinney MD Jul 30, 2016 19:04
[2016-07-30] MEDS: PANTOPRAZOLE SODIUM 40 MG VIAL IV PUSH SCH (12:14)
[2016-07-30] MEDS: ACETAMINOPHEN/HYDROcodone 325 MG/7.5 MG TAB PO PRN ×4 (12:14→21:28)
--- NOTE | 2016-07-30 12:54 | HHI.GIFU ---
Subjective Remarks Resting in bed, having drsg changed by the wound care team. No n/v. Abdominal pain controlled with meds. No obvious bleeding. (Abeba Walter) Objective Vitals I&O Vital Signs Date Time Temp Pulse Resp B/P Pulse Ox O2 Delivery O2 Flow Rate FiO2 07/30/16 10:00 79 07/30/16 08:00 98.1 76 19 89/53 98 07/30/16 08:00 76 07/30/16 07:00 99 Nasal Cannula 2.00 07/30/16 06:00 73 07/30/16 04:00 98.0 73 24 99/52 99 07/30/16 04:00 73 07/30/16 02:00 66 07/30/16 00:00 97.8 68 18 98/55 98 07/30/16 00:00 68 07/29/16 22:00 75 07/29/16 20:28 99 Nasal Cannula 2.00 07/29/16 20:00 98 Nasal Cannula 2.00 07/29/16 20:00 75 07/29/16 20:00 97.9 75 18 102/55 99 07/29/16 18:04 98 Nasal Cannula 3.00 07/29/16 18:00 72 07/29/16 16:27 22 07/29/16 16:00 98.3 89 20 105/60 98 07/29/16 16:00 79 07/29/16 14:00 97.7 91 25 104/59 100 07/29/16 14:00 91 07/29/16 13:30 97.1 89 14 112/65 99 07/29/16 13:15 92 18 102/60 99 07/29/16 13:00 101 22 101/64 99 07/29/16 12:45 114 24 114/68 98 07/29/16 12:40 124 22 91 Bi-Pap 70 07/29/16 12:35 97 70 I/O 07/29/16 07/29/16 07/29/16 07/30/16 07/30/16 07/30/16 07:00 15:00 23:00 07:00 15:00 23:00 Intake Total 1100 ml 1750 ml 2490 ml 1351 ml Output Total 650 ml 1520 ml 1110 ml 610 ml Balance 450 ml 230 ml 1380 ml 741 ml Intake Oral 600 ml 400 ml IV Total 850 ml 200 ml 1890 ml 951 ml Albumin 250 ml Packed Cells 250 ml Other 1300 ml Output Urine Total 1425 ml 950 ml 450 ml Stool Total 650 ml Drainage Total 70 ml 160 ml 160 ml Estimated Blood Loss 25 ml # Voids 3 Laboratory Laboratory Tests Test 07/30/16 03:25 White Blood Count 8.4 Red Blood Count 3.44 Hemoglobin 9.6 Hematocrit 29.0 Mean Corpuscular Volume 84.2 Mean Corpuscular Hemoglobin 27.8 Mean Corpuscular Hemoglobin 33.0 Concent Red Cell Distribution Width 16.4 Platelet Count 968 Mean Platelet Volume 6.6 Neutrophils (%) (Auto) 71.4 Lymphocytes (%) (Auto) 13.3 Monocytes (%) (Auto) 14.1 Eosinophils (%) (Auto) 0.7 Basophils (%) (Auto) 0.5 Neutrophils # (Auto) 6.0 Lymphocytes # (Auto) 1.1 Monocytes # (Auto) 1.2 Eosinophils # (Auto) 0.1 Basophils # (Auto) 0.0 CBC Comment DIFF FINAL Differential Comment Sodium Level 146 Potassium Level 4.0 Chloride Level 110 Carbon Dioxide Level 30.1 Anion Gap 6 Blood Urea Nitrogen 7 Creatinine 0.42 Estimat Glomerular Filtration 151 Rate Random Glucose 101 Calcium Level 7.8 Date/Time Procedure Status Source Growth 07/28/16 13:15 Aerobic Blood Culture - Preliminary Resulted Blood Peripheral NO GROWTH IN 2 DAYS 07/28/16 13:15 Anaerobic Blood Culture - Preliminary Resulted Blood Peripheral NO GROWTH IN 2 DAYS Imaging Last Impressions Chest X-Ray 07/29/16 0000 Signed Impressions: Service Date/Time: Friday, July 29, 2016 09:32 - CONCLUSION: 1. Bibasilar atelectasis, right greater than left. 2. Compensated cardiomegaly. Fred Solis MD Abdomen/Pelvis CT 07/28/16 0735 Signed Impressions: Service Date/Time: Thursday, July 28, 2016 09:50 - CONCLUSION: 1. There is diffuse and extensive subcutaneous emphysema around the abdominal wall from patient's right lateral abdominal wall all the way across midline to the left lateral abdominal wall. 2. There appears to be of fluid collection in the anterior left abdominal wall suspicious for a subcutaneous abscess. There is nonspecific edema throughout the subcutaneous tissues of the abdominal wall. 3. No acute intra-abdominal/pelvic pathology. Fred Solis MD Physical Exam HEENT: Normocephalic; atraumatic; no jaundice. CHEST: CTA CARDIAC: RRR. ABDOMEN: Soft, nondistended, drsg left abbomen with wound vac, incision line to right well approximated; no hepatosplenomegaly; bowel sounds are present in all four quadrants. EXTREMITIES: Generalized edema. SKIN: Normal; no rash; no jaundice. 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 GI have been consulted for anemia of 6.8. CT showed 1. There is diffuse and extensive subcutaneous emphysema around the abdominal wall from patient's right lateral abdominal wall all the way across midline to the left lateral abdominal wall. 2. There appears to be of fluid collection in the anterior left abdominal wall suspicious for a subcutaneous abscess. There is nonspecific edema throughout the subcutaneous tissues of the abdominal wall. 3. No acute intra-abdominal/pelvic pathology. She had EGD/ colonoscopy about 7 years ago. Patient denies nausea, vomiting, hematemesis, hematochezia or melena. Reports loose stools, but not severe. S/P 4 units PRBC. HH 9.6/29.0. - Colocutaneous fistula. S/P recent exploration with closure of a colocutaneous fistula in [place]. Wound Vac. Back to OR for exploration on Saturday per . - Leukocytosis- WBC 8.4,low grade fever, blood cx pending, lactic acid normal, abx - Extensive history of complicated multiple abdominal surgeries dating back to 1999, gastric by pass, and large recurrent incisional hernia from multiple abdominal surgeries.who presents today for evaluation of abdominal fistula. By report, patient had a recent repair of small bowel fistula and ventral incisional hernia repair in [place] and was discharged on July 23, 2016 on abx. Plan: - Diet per GS - Monitor HH - Transfuse as necessary - Consider endoscopic evaluation if there is active bleeding. - Will hold off on any GI procedures pending GS work up - EGD/colonoscopy once more stable - Cont to monitor hh - Transfuse as needed - Cont. abx - Supportive care - Patient seen and examined by Dr. Powell and myself and this note is written on his behalf. (Abeba Walter) Physician Comments Patient seen and examined Agree with above Continue with current supportive care Monitor labs (Thanh Powell MD) Abeba Walter Jul 30, 2016 12:54 Thanh Powell MD Jul 30, 2016 22:39
[2016-07-30] MEDS ORDERED: LACTATED RINGER'S 1000 ML INJ 1,000 ML IV ONE (17:15)
[2016-07-30] MEDS: ZOLPIDEM TARTRATE 5 MG TAB PO PRN (22:59)
[2016-07-30] MEDS ORDERED: PHARMACY ORDERED LAB XX ONE (23:45)
[2016-07-31] VITALS (13 sets, daily range): BP systolic 100–125; BP diastolic 55–64; PULSE 78–97; RESP 20–24; TEMP 98.1–99.3; O2SAT 98–100
[2016-07-31] MEDS: VANCOMYCIN 1,500 MG/NS 500 ML IV SCH ×4 (00:36→12:30)
[2016-07-31] MEDS: metroNIDAZOLE 500 MG INJ 100 ML IV SCH ×4 (02:32→21:15)
[2016-07-31] MEDS: ACETAMINOPHEN/HYDROcodone 325 MG/7.5 MG TAB PO PRN ×4 (03:06→19:22)
[2016-07-31] MEDS: CHLORHEXIDINE GLUCONATE 2 % 1 PACK (2 CLOTHS)(taper/protocol) TOP SCH (04:00)
[2016-07-31 04:49] LABS: HEMATOCRIT 28.6 % (35.0-46.0); MEAN CELL VOLUME 84.1 FL (80.0-100.0); MEAN CORPUSCULAR HEMOGLOBIN 27.7 PG (27.0-34.0); MEAN CORPUSCULAR HGB CONC 32.9 % (32.0-36.0); PLATELET COUNT 1013 TH/MM3 (150-450); RED CELL DISTRIBUTION WIDTH 16.4 % (11.6-17.2); REVIEW FLAG FINAL; WHITE BLOOD COUNT 7.5 TH/MM3 (4.0-11.0)
[2016-07-31 05:00] LABS: BICARBONATE 28.1 MEQ/L (21.0-32.0); POTASSIUM 3.6 MEQ/L (3.5-5.1)
[2016-07-31 05:01] LABS: CALCIUM-PROTEIN CORRECTED 9.5 MG/DL (8.5-10.1)
[2016-07-31] MEDS: CEFEPIME INJ 2,000 MG in SODIUM CHLORIDE 0.9% INJ 100 ML IV SCH ×3 (06:00→22:19)
[2016-07-31] MEDS: SODIUM CHLOR 0.9% 1000 ML INJ 1,000 ML IV SCH ×2 (07:28→15:10)
[2016-07-31] MEDS ORDERED: PRAMIPEXOLE DIHYDROCHLORIDE 0.25 MG TAB PO SCH (09:00)
[2016-07-31] MEDS: SODIUM CHLORIDE 0.9% FLUSH 5 ML FLUSH FLUSH SCH ×2 (09:00→21:00)
[2016-07-31] MEDS: SODIUM CHLORIDE 0.9% FLUSH 5 ML FLUSH IVF SCH ×2 (09:00→21:00)
[2016-07-31] MEDS: MORPHINE SULFATE 4 MG/ML INJ IV PUSH PRN ×2 (09:50→22:47)
[2016-07-31] MEDS: PANTOPRAZOLE SODIUM 40 MG VIAL IV PUSH SCH (11:09)
--- NOTE | 2016-07-31 11:09 | HHI.FPPN ---
Subjective Remarks Except blood pressure in the 90s over 50s, patient afebrile vital signs stable. Patient reports that she had a rough morning because they were adjusting her wound VAC. She reports that she was drinking some apple juice yesterday and noticed that it went through her body and out the wound VAC. She reports that her wound is currently very tender and she requested that we not palpate her abdomen. She denies any chest pain, shortness of breath, nausea, vomiting. ( Jovani Sebastian MD R1) Objective Vitals Vital Signs Date Time Temp Pulse Resp B/P Pulse Ox O2 Delivery O2 Flow Rate FiO2 07/31/16 06:00 88 07/31/16 04:00 89 07/31/16 04:00 98.4 89 24 107/55 98 07/31/16 02:00 81 07/31/16 00:00 99.3 89 20 116/55 98 07/31/16 00:00 89 07/30/16 22:00 85 07/30/16 20:33 100 Nasal Cannula 07/30/16 20:00 84 07/30/16 20:00 99.0 84 20 94/55 98 07/30/16 19:00 97 Nasal Cannula 2.00 07/30/16 19:00 97 Nasal Cannula 2.00 07/30/16 18:00 94 07/30/16 16:00 87 07/30/16 16:00 98.1 84 22 90/49 100 07/30/16 14:00 79 07/30/16 13:14 18 07/30/16 12:00 98.8 78 22 113/52 98 07/30/16 12:00 86 I/O 07/30/16 07/30/16 07/30/16 07/31/16 07/31/16 07/31/16 07:00 15:00 23:00 07:00 15:00 23:00 Intake Total 1351 ml 1942 ml 2383 ml 1375 ml Output Total 610 ml 610 ml 920 ml 1070 ml Balance 741 ml 1332 ml 1463 ml 305 ml Intake Oral 400 ml 300 ml 400 ml 300 ml IV Total 951 ml 1642 ml 1983 ml 1075 ml Output Urine Total 450 ml 425 ml 800 ml 900 ml Stool Total 0 ml 0 ml Drainage Total 160 ml 185 ml 120 ml 170 ml (Jovani Sebastian MD R1) Result Diagram: 07/31/16 0345 07/31/16 0345 Imaging Last Impressions Chest X-Ray 07/29/16 0000 Signed Impressions: Service Date/Time: Friday, July 29, 2016 09:32 - CONCLUSION: 1. Bibasilar atelectasis, right greater than left. 2. Compensated cardiomegaly. Fred Solis MD Abdomen/Pelvis CT 07/28/16 0735 Signed Impressions: Service Date/Time: Thursday, July 28, 2016 09:50 - CONCLUSION: 1. There is diffuse and extensive subcutaneous emphysema around the abdominal wall from patient's right lateral abdominal wall all the way across midline to the left lateral abdominal wall. 2. There appears to be of fluid collection in the anterior left abdominal wall suspicious for a subcutaneous abscess. There is nonspecific edema throughout the subcutaneous tissues of the abdominal wall. 3. No acute intra-abdominal/pelvic pathology. Fred Solis MD Objective Remarks GENERAL: NAD, lying in bed, appears uncomfortable NEURO: AOx3. 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 sparker and patcher grossly intact. SKIN: Warm and dry. Patient with wound drain in place without occlusive dressing embedded in an open wound in the left lower quadrant with significant erythema surrounding wound site, which is draining yellow serous fluid. There is a 1' x 1' backwards L-shaped incision extending from her midline to her right lower quadrant held together by sutures, with no drainage noted. However, in the middle of the Midline incision, there is a few cm of wound dehiscence, revealing some subcutaneous tissue, with surrounding erythema noted. HEAD: Normocephalic. Atraumatic. EYES: EOMI. No scleral icterus. No injection or drainage. ENT: No nasal drainage. Dry mucous membranes. NECK: Supple, trachea midline. No JVD. CARDIOVASCULAR: Regular rate and rhythm without murmurs, gallops, or rubs RESPIRATORY: Anterior and lateral lung ballard auscultated as pt movement limited due to pain, clear to auscultation. No accessory muscle use. GASTROINTESTINAL: Abdomen obese. For wound, drain, and incisions, see skin above. Patient reports that she is exquisitely tender to palpation throughout her abdomen, especially in left lower quadrant. MUSCULOSKELETAL: Anasarca with 2+ bilateral lower extremity edema extending up her lateral thighs. 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 Plan return to the operating room for reevaluation on Saturday/orrow, . She was admitted with sepsis, anemia, and hypotension, and is being managed for the following: Discharge Planning D/C pending clearance by general surgery. Time frame is unclear as patient is anticipated to return to the OR on Saturday/tomorrow (08/01/16). sdw Dr. Yeny Wheeler (Jovani Sebastian MD R1) Attending Attestation Pt. examined and case discussed with resident physicians I have read the above note and agree with the assessment/plan as discussed with me I was involved in all medical decision making for this patient Fred Mckinney MD (Fred Mckinney MD) Problem List: (1) Abscess of abdominal wall Status: Acute Plan: Patient with significant abscess of abdominal wall and enterocutaneous fistula General Surgery Consulted, appreciate recommendation and interventions - POD day #2, status post incision and drainage and washout of left abdominal wall, with wound vac placement due to small bowel fistulae. -Plan for patient to return to OR for reevaluation on Saturday/ow, 08/01/16 -Pain control with [place] 7.5-325 mg po Q4hrs prn pain 6-10, morphine 2 mg IV q3h prn breakthrough, hold if SBP < 110 or DBP < 60 -Blood cultures NGTD -Met sepsis criteria; tachycardic, tachypneic, with leukocytosis, Lactic acid 1.8 on admission Broad Spectrum Antibiotics: - Vancomycin, pharm consult (07/28- ) - Cefepime 2gm IV q8h (07/28- ) - Flagyl 500 mg IV q6h (07/28- ) Imaging 07/28 - Abdomen/Pelvis CT: Diffuse and extensive subcutaneous emphysema around the abdominal wall from patient's right lateral abdominal wall across midline to left lateral abdominal wall. Fluid collection in anterior left abdominal wall suspicious for subcutaneous abscess. Nonspecific edema throughout subcutaneous tissues. No acute intra-abdominal or pelvic pathology. Given extent of erythema and edema of skin and subcutaneous abscess, we will cover with broad-spectrum antibiotics (2) Sepsis Status: Acute Plan: See plan above below. Source likely from wound infection/abscess. - UA WNL, no culture indicated (3) SOB (shortness of breath) Status: Resolved Plan: SOB resolved. Possibly due to aggressive fluid hydration and fluid overload. - CXR 07/29: Bibasilar atelectasis, right greater than left. Compensated cardiomegaly. - Incentive spirometry - IVF 100cc/hr, consider decreasing depending how patient tolerates by mouth diet. (4) Hypotension Status: Acute Plan: - Stable overnight, blood pressure in the 90s over 50s - Likely due to sepsis - Use caution with fluids due to concern for fluid overload. However intravascular volume is the top priority. - Continue to monitor (5) Anemia Status: Acute Plan: - Hgb on admission 6.8, s/p 4 units on 07/28 - H&H 9.4 and 28.6 respectively this morning, improving - Continue to monitor - Iron panel significant for anemia of chronic disease - B12 and Folate both elevated - GI consulted, appreciate recommendations. - No indication of GI bleed at this time. If H&H continues to drop we'll consider EGD versus colonoscopy versus a bleeding scan - PPI: Protonix 40 mg IV daily - Transfuse as needed (6) Nutrition, metabolism, and development symptoms Status: Acute Plan: Fluids: NS IV at 100 ml per hour Electrolytes: WNLs, continue to monitor and replete as necessary Nutrition: Clear liquid diet, nothing by mouth at midnight DVT PPX: SCDs. No chemical anticoagulation in anticipation of return to OR GI PPX: 40 mg Protonix IV daily (Jovani Sebastian MD R1) Problem Qualifiers (1) Anemia: Qualified Code: D64.9 - Anemia, unspecified type Jovani Sebastian MD R1 Jul 31, 2016 11:09 Fred Mckinney MD Jul 31, 2016 15:03
--- NOTE | 2016-07-31 12:10 | HHI.GIFU ---
Subjective Remarks Resting in bed. Not much appetite, but taking po. No signs of active bleeding. (Abeba Walter) Objective Vitals I&O Vital Signs Date Time Temp Pulse Resp B/P Pulse Ox O2 Delivery O2 Flow Rate FiO2 07/31/16 12:00 98.2 81 20 116/64 100 07/31/16 08:00 98.1 84 21 100/55 100 07/31/16 07:00 100 Nasal Cannula 2.00 07/31/16 06:00 88 07/31/16 04:00 89 07/31/16 04:00 98.4 89 24 107/55 98 07/31/16 02:00 81 07/31/16 00:00 99.3 89 20 116/55 98 07/31/16 00:00 89 07/30/16 22:00 85 07/30/16 20:33 100 Nasal Cannula 07/30/16 20:00 84 07/30/16 20:00 99.0 84 20 94/55 98 07/30/16 19:00 97 Nasal Cannula 2.00 07/30/16 19:00 97 Nasal Cannula 2.00 07/30/16 18:00 94 07/30/16 16:00 87 07/30/16 16:00 98.1 84 22 90/49 100 07/30/16 14:00 79 07/30/16 13:14 18 I/O 07/30/16 07/30/16 07/30/16 07/31/16 07/31/16 07/31/16 07:00 15:00 23:00 07:00 15:00 23:00 Intake Total 1351 ml 1942 ml 2383 ml 1375 ml Output Total 610 ml 610 ml 920 ml 1070 ml Balance 741 ml 1332 ml 1463 ml 305 ml Intake Oral 400 ml 300 ml 400 ml 300 ml IV Total 951 ml 1642 ml 1983 ml 1075 ml Output Urine Total 450 ml 425 ml 800 ml 900 ml Stool Total 0 ml 0 ml Drainage Total 160 ml 185 ml 120 ml 170 ml Laboratory Laboratory Tests Test 07/30/16 07/31/16 23:45 03:45 Vancomycin Level Trough 9.3 White Blood Count 7.5 Red Blood Count 3.40 Hemoglobin 9.4 Hematocrit 28.6 Mean Corpuscular Volume 84.1 Mean Corpuscular Hemoglobin 27.7 Mean Corpuscular Hemoglobin 32.9 Concent Red Cell Distribution Width 16.4 Platelet Count 1013 Mean Platelet Volume 6.2 Sodium Level 145 Potassium Level 3.6 Chloride Level 110 Carbon Dioxide Level 28.1 Anion Gap 7 Blood Urea Nitrogen 6 Creatinine 0.42 Estimat Glomerular Filtration 151 Rate Random Glucose 80 Calcium Level 8.0 Protein Corrected Calcium 9.5 Total Protein 4.7 Date/Time Procedure Status Source Growth 07/28/16 13:15 Aerobic Blood Culture - Preliminary Resulted Blood Peripheral NO GROWTH IN 3 DAYS 07/28/16 13:15 Anaerobic Blood Culture - Preliminary Resulted Blood Peripheral NO GROWTH IN 3 DAYS Imaging Last Impressions Chest X-Ray 07/29/16 0000 Signed Impressions: Service Date/Time: Friday, July 29, 2016 09:32 - CONCLUSION: 1. Bibasilar atelectasis, right greater than left. 2. Compensated cardiomegaly. Fred Solis MD Abdomen/Pelvis CT 07/28/16 0735 Signed Impressions: Service Date/Time: Thursday, July 28, 2016 09:50 - CONCLUSION: 1. There is diffuse and extensive subcutaneous emphysema around the abdominal wall from patient's right lateral abdominal wall all the way across midline to the left lateral abdominal wall. 2. There appears to be of fluid collection in the anterior left abdominal wall suspicious for a subcutaneous abscess. There is nonspecific edema throughout the subcutaneous tissues of the abdominal wall. 3. No acute intra-abdominal/pelvic pathology. Fred Solis MD Physical Exam HEENT: Normocephalic; atraumatic; no jaundice. CHEST: CTA CARDIAC: RRR. ABDOMEN: Soft, nondistended, drsg left abdomen with wound vac, incision line to right well approximated; no hepatosplenomegaly; bowel sounds are present in all four quadrants. EXTREMITIES: Generalized edema. SKIN: Normal; no rash; no jaundice. SAP BW DEVELOPER: Lethargic (Abeba Walter) Assessment and Plan Plan ASSESSMENT: - Severe anemia. GI have been consulted for anemia of 6.8. CT showed 1. There is diffuse and extensive subcutaneous emphysema around the abdominal wall from patient's right lateral abdominal wall all the way across midline to the left lateral abdominal wall. 2. There appears to be of fluid collection in the anterior left abdominal wall suspicious for a subcutaneous abscess. There is nonspecific edema throughout the subcutaneous tissues of the abdominal wall. 3. No acute intra-abdominal/pelvic pathology. She had EGD/ colonoscopy about 7 years ago. Patient denies nausea, vomiting, hematemesis, hematochezia or melena. Reports loose stools, but not severe. S/P 4 units PRBC. HH remains stable 9.4/ 28.6. - Colocutaneous fistula. S/P recent exploration with closure of a colocutaneous fistula in [place]. Wound Vac. Going back to OR tomorrow with GS. - Leukocytosis- WBC 7.5 low grade fever, blood cx pending, lactic acid normal, abx - Extensive history of complicated multiple abdominal surgeries dating back to 1999, gastric by pass, and large recurrent incisional hernia from multiple abdominal surgeries.who presents today for evaluation of abdominal fistula. By report, patient had a recent repair of small bowel fistula and ventral incisional hernia repair in [place] and was discharged on July 23, 2016 on abx. Plan: - Diet per GS - Monitor HH - Transfuse as necessary - Consider endoscopic evaluation if there is active bleeding. - GI will sign off for now, please reconsult if needed or if there is active bleeding - Patient seen and examined by Dr. Powell and myself and this note is written on his behalf. (Abeba Walter) Physician Comments Patient seen and examined Agree with above Continue with current supportive care Monitor labs Further plans as per the general surgery service GI will sign off Patient follow-up with GI post discharge (Thanh Powell MD) Abeba Walter Jul 31, 2016 12:10 Thanh Powell MD Jul 31, 2016 22:14
--- NOTE | 2016-07-31 13:31 | HHI.PR ---
Subjective Subjective Notes DAILY PROGRESS NOTE FOR SURGICAL ATTENDING, DR. LANDRY VELEZ Resting in bed Wound team at bedside Objective Vitals/I&O Vital Signs Date Time Temp Pulse Resp B/P Pulse Ox O2 Delivery O2 Flow Rate FiO2 07/31/16 12:00 98.2 81 20 116/64 100 07/31/16 07:00 Nasal Cannula 2.00 07/29/16 12:40 70 Labs Laboratory Tests Test 07/30/16 07/31/16 23:45 03:45 Vancomycin Level Trough 9.3 White Blood Count 7.5 Red Blood Count 3.40 Hemoglobin 9.4 Hematocrit 28.6 Mean Corpuscular Volume 84.1 Mean Corpuscular Hemoglobin 27.7 Mean Corpuscular Hemoglobin 32.9 Concent Red Cell Distribution Width 16.4 Platelet Count 1013 Mean Platelet Volume 6.2 Sodium Level 145 Potassium Level 3.6 Chloride Level 110 Carbon Dioxide Level 28.1 Anion Gap 7 Blood Urea Nitrogen 6 Creatinine 0.42 Estimat Glomerular Filtration 151 Rate Random Glucose 80 Calcium Level 8.0 Protein Corrected Calcium 9.5 Total Protein 4.7 Date/Time Procedure Status Source Growth 07/28/16 13:15 Aerobic Blood Culture - Preliminary Resulted Blood Peripheral NO GROWTH IN 3 DAYS 07/28/16 13:15 Anaerobic Blood Culture - Preliminary Resulted Blood Peripheral NO GROWTH IN 3 DAYS Radiology Last Impressions Chest X-Ray 07/29/16 0000 Signed Impressions: Service Date/Time: Friday, July 29, 2016 09:32 - CONCLUSION: 1. Bibasilar atelectasis, right greater than left. 2. Compensated cardiomegaly. Fred Solis MD Abdomen/Pelvis CT 07/28/16 0735 Signed Impressions: Service Date/Time: Thursday, July 28, 2016 09:50 - CONCLUSION: 1. There is diffuse and extensive subcutaneous emphysema around the abdominal wall from patient's right lateral abdominal wall all the way across midline to the left lateral abdominal wall. 2. There appears to be of fluid collection in the anterior left abdominal wall suspicious for a subcutaneous abscess. There is nonspecific edema throughout the subcutaneous tissues of the abdominal wall. 3. No acute intra-abdominal/pelvic pathology. 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 Velez Attending Statement NOTE FOR SURGICAL ATTENDING, DR. LANDRY VELEZ Patient seen and examined Discussed with ostomy nurses Plan OR tomorrow I agree with above assessment and plan. The exam, history, and the medical decision-making described in the above note were completed with the assistance of the mid-level provider. I reviewed and agree with the findings presented. I attest that I had a [id number] encounter with the patient on the same day, and personally performed and documented my assessment and findings in the medical record. The following services were provided during this hospital visit: Chart data review, vital sign assessments/reviewing monitor data Review of consultations notes if present. Medication orders/review and/or management Ordering and/or reviewing lab tests Ordering and/or interpreting/reviewing x-rays and/or diagnostic studies Care of the patient and discussion of the patient with the care team Documentation time To help prompt me to consider important information that might be impacting today's encounter and assessment, information from prior notes written by myself or my colleagues may have been "brought forward/copy and pasted" into today's note. Arabella Pickering Jul 31, 2016 13:31 Landry Velez MD Aug 01, 2016 11:14
[2016-07-31] MEDS: PRAMIPEXOLE DIHYDROCHLORIDE 0.25 MG TAB PO SCH (21:15)
[2016-08-01] VITALS (13 sets, daily range): BP systolic 110–145; BP diastolic 59–80; PULSE 20–96; RESP 16–23; TEMP 97.8–98.7; O2SAT 93–100
[2016-08-01] MEDS: VANCOMYCIN 1,500 MG/NS 500 ML IV SCH ×4 (00:23→15:54)
[2016-08-01] MEDS: metroNIDAZOLE 500 MG INJ 100 ML IV SCH ×4 (03:01→20:41)
[2016-08-01] MEDS: SODIUM CHLOR 0.9% 1000 ML INJ 1,000 ML IV SCH (03:28)
[2016-08-01] MEDS: CHLORHEXIDINE GLUCONATE 2 % 1 PACK (2 CLOTHS)(taper/protocol) TOP SCH (04:00)
[2016-08-01] MEDS: CEFEPIME INJ 2,000 MG in SODIUM CHLORIDE 0.9% INJ 100 ML IV SCH ×3 (05:02→23:27)
[2016-08-01 05:34] LABS: HEMATOCRIT 30.7 % (35.0-46.0); MEAN CELL VOLUME 85.2 FL (80.0-100.0); MEAN CORPUSCULAR HEMOGLOBIN 27.4 PG (27.0-34.0); MEAN CORPUSCULAR HGB CONC 32.1 % (32.0-36.0); PLATELET COUNT 936 TH/MM3 (150-450); RED BLOOD COUNT 3.61 MIL/MM3 (4.00-5.30); RED CELL DISTRIBUTION WIDTH 16.7 % (11.6-17.2); REVIEW FLAG FINAL; WHITE BLOOD COUNT 7.3 TH/MM3 (4.0-11.0)
[2016-08-01 05:47] LABS: BICARBONATE 30.9 MEQ/L (21.0-32.0); MAGNESIUM 1.9 MG/DL (1.5-2.5); POTASSIUM 3.7 MEQ/L (3.5-5.1)
[2016-08-01] MEDS: MORPHINE SULFATE 4 MG/ML INJ IV PUSH PRN (07:07)
[2016-08-01] MEDS: SODIUM CHLORIDE 0.9% FLUSH 5 ML FLUSH IVF SCH ×2 (08:25→20:41)
[2016-08-01] MEDS: SODIUM CHLORIDE 0.9% FLUSH 5 ML FLUSH FLUSH SCH ×2 (08:25→20:41)
--- NOTE | 2016-08-01 08:33 | HHI.FPPN ---
Subjective Remarks No acute events overnight. AFVSS. Pt reports increasing pain, swelling from LLQ abdominal wound. She also endorses a headache and increasing LE swelling. She denies any CP, SOB, n/v. She is eager to get to her procedure done in the OR hopefully today. (Jovani Sebastian MD R1) Objective Vitals Vital Signs Date Time Temp Pulse Resp B/P Pulse Ox O2 Delivery O2 Flow Rate FiO2 08/01/16 07:40 16 08/01/16 06:00 76 08/01/16 04:00 98.3 78 17 114/59 98 08/01/16 04:00 78 08/01/16 02:00 74 08/01/16 00:00 98.2 82 22 110/66 100 08/01/16 00:00 82 07/31/16 22:00 79 07/31/16 21:16 20 07/31/16 21:06 98 Nasal Cannula 2.00 07/31/16 20:00 98.7 86 20 107/59 100 07/31/16 20:00 86 07/31/16 19:00 100 Nasal Cannula 3.00 07/31/16 18:00 97 07/31/16 16:00 98.7 79 20 125/57 98 07/31/16 16:00 78 07/31/16 14:00 82 07/31/16 12:00 98.2 81 20 116/64 100 07/31/16 12:00 88 07/31/16 10:00 80 I/O 07/31/16 07/31/16 07/31/16 08/01/16 08/01/16 08/01/16 07:00 15:00 23:00 07:00 15:00 23:00 Intake Total 1375 ml 1397 ml 1015 ml 1218 ml Output Total 1070 ml 1315 ml 1000 ml 1200 ml Balance 305 ml 82 ml 15 ml 18 ml Intake Oral 300 ml 250 ml 300 ml IV Total 1075 ml 1147 ml 715 ml 1218 ml Output Urine Total 900 ml 1300 ml 1000 ml 1200 ml Stool Total 0 ml 0 ml 0 ml 0 ml Drainage Total 170 ml 15 ml (Jovani Sebastian MD R1) Result Diagram: 08/01/16 0500 08/01/16 0500 Imaging Last Impressions Chest X-Ray 07/29/16 0000 Signed Impressions: Service Date/Time: Friday, July 29, 2016 09:32 - CONCLUSION: 1. Bibasilar atelectasis, right greater than left. 2. Compensated cardiomegaly. Fred Solis MD Abdomen/Pelvis CT 07/28/16 0735 Signed Impressions: Service Date/Time: Thursday, July 28, 2016 09:50 - CONCLUSION: 1. There is diffuse and extensive subcutaneous emphysema around the abdominal wall from patient's right lateral abdominal wall all the way across midline to the left lateral abdominal wall. 2. There appears to be of fluid collection in the anterior left abdominal wall suspicious for a subcutaneous abscess. There is nonspecific edema throughout the subcutaneous tissues of the abdominal wall. 3. No acute intra-abdominal/pelvic pathology. Fred Solis MD Objective Remarks GENERAL: NAD, lying in bed, appears uncomfortable NEURO: AOx3. 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 SKIN: Warm and dry. Patient with wound drain in place embedded in an open wound in the left lower quadrant with significant erythema surrounding wound site, which is draining yellow serous fluid into wound dressings, while the wound vac is suctioning out minimal dark green almost black fluid. There is a 1 ' x 1' backwards L-shaped incision extending from her midline to her right lower quadrant held together by sutures. In the middle of the midline incision, there is a few cm of wound dehiscence, revealing some subcutaneous tissue, with surrounding erythema and with yellow/serous draining soaking through covering gauze. HEAD: Normocephalic. Atraumatic. EYES: EOMI. No scleral icterus. No injection or drainage. ENT: No nasal drainage. Dry mucous membranes. NECK: Supple, trachea midline. No JVD. CARDIOVASCULAR: Regular rate and rhythm without murmurs, gallops, or rubs RESPIRATORY: Anterior and lateral lung ballard auscultated as pt movement limited due to pain, clear to auscultation. No accessory muscle use. GASTROINTESTINAL: Abdomen obese. For wound, drain, and incisions, see skin above. Patient reports that she is exquisitely tender to palpation throughout her abdomen, especially in left lower quadrant. MUSCULOSKELETAL: Anasarca with 2+ bilateral lower extremity edema extending up her lateral thighs. 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 Plan return to the operating room for reevaluation on Saturday/, 08/01/16. She was admitted with sepsis, anemia, and hypotension, and is being managed for the following: Discharge Planning D/C pending clearance by general surgery. Time frame is unclear as patient is anticipated to return to the OR on Saturday/ (08/01/16). sdw Dr. Yeny Wheeler wdw Dr. Mckinney (Jovani Sebastian MD R1) Attending Attestation Patient examined and case discussed with resident physicians I have read the above note and agree with the assessment/plan is discussed with me I was involved in all medical decision making for this patient Fred Mckinney M.D. (Fred Mckinney MD) Problem List: (1) Abscess of abdominal wall Status: Acute Plan: Patient with significant abscess of abdominal wall and enterocutaneous fistula General Surgery Consulted, appreciate recommendations and interventions POD day #3, status post incision and drainage and washout of left abdominal wall , with wound vac placement due to small bowel fistulae. -Plan for patient to return to OR for reevaluation on Saturday/, 08/01/16 -Pain control with [place] 7.5-325 mg po Q4hrs prn pain 6-10, morphine 2 mg IV q3h prn breakthrough, hold if SBP < 110 or DBP < 60 -Blood cultures NGTD -Met sepsis criteria; tachycardic, tachypneic, with leukocytosis, Lactic acid 1.8 on admission Broad Spectrum Antibiotics: - Vancomycin, pharm consult (07/28- ) - Cefepime 2gm IV q8h (07/28- ) - Flagyl 500 mg IV q6h (07/28- ) Imaging 07/28 - Abdomen/Pelvis CT: Diffuse and extensive subcutaneous emphysema around the abdominal wall from patient's right lateral abdominal wall across midline to left lateral abdominal wall. Fluid collection in anterior left abdominal wall suspicious for subcutaneous abscess. Nonspecific edema throughout subcutaneous tissues. No acute intra-abdominal or pelvic pathology. Given extent of erythema and edema of skin and subcutaneous abscess, we will cover with broad-spectrum antibiotics (2) Sepsis Status: Acute Plan: See plan above below. Source likely from wound infection/abscess. - UA WNL, no culture indicated - CXR, no pneumonia (3) SOB (shortness of breath) Status: Resolved Plan: SOB resolved. Possibly due to aggressive fluid hydration and fluid overload. - CXR 07/29: Bibasilar atelectasis, right greater than left. Compensated cardiomegaly. - Incentive spirometry - IVF 100cc/hr, consider decreasing depending how patient's fluid overload status. Consider increasing because patient is nothing by mouth, however creatinine remains low. In a switched LR because of hypernatremia and hyperchloremia. (4) Hypotension Status: Acute Plan: - Stable overnight, blood pressure improved to the 100s-120s over 50s - Likely due to sepsis - Use caution with fluids due to concern for fluid overload. However intravascular volume is the top priority. - Continue to monitor (5) Anemia Status: Acute Plan: - Hgb on admission 6.8, s/p 4 units on 07/28 - H&H 9.9 and 30.7 respectively this morning, continue to be improving - Continue to monitor - Iron panel significant for anemia of chronic disease - B12 and Folate both elevated - GI consulted, appreciate recommendations. - No indication of GI bleed at this time. If H&H continues to drop we'll consider EGD versus colonoscopy versus a bleeding scan - PPI: Protonix 40 mg IV daily - Transfuse as needed (6) Nutrition, metabolism, and development symptoms Status: Acute Plan: Fluids: LR IV at 100 ml per hour Electrolytes: WNLs, continue to monitor and replete as necessary Nutrition: Nothing by mouth DVT PPX: SCDs. No chemical anticoagulation in anticipation of return to OR GI PPX: 40 mg Protonix IV daily (Jovani Sebastian MD R1) Problem Qualifiers (1) Anemia: Qualified Code: D64.9 - Anemia, unspecified type Jovani Sebastian MD R1 Aug 01, 2016 08:33 Fred Mckinney MD Aug 01, 2016 15:59
[2016-08-01] MEDS ORDERED: ONDANSETRON HCL 4 MG/2 ML VIAL IV PUSH ONE (10:17)
[2016-08-01] MEDS ORDERED: ePHEDrine/NS 25 MG/5 ML SYR IV ONE (10:17)
[2016-08-01] MEDS ORDERED: NEOSTIGMINE 3 MG/3 ML SYR IV ONE (10:17)
[2016-08-01] MEDS ORDERED: PHENYLEPH/NS 1000 MCG/10 ML SYR IV ONE (10:17)
[2016-08-01] MEDS ORDERED: PROPOFOL 200 MG/20 ML AMP IV ONE (10:17)
[2016-08-01] MEDS ORDERED: PHARMACY ORDERED LAB XX ONE ×2 (11:45→17:45)
[2016-08-01] MEDS ORDERED: ACETAMINOPHEN 1000 MG/100 ML VIAL IV ONE (12:00)
[2016-08-01] MEDS ORDERED: MIDAZOLAM HCL 2 MG/2 ML VIAL ONE (12:00)
[2016-08-01] MEDS ORDERED: fentaNYL CITRATE 250 MCG/5 ML AMP ONE (12:00)
[2016-08-01] MEDS ORDERED: HYDROmorphone HCL PF 2 MG/ML VIAL ONE (12:01)
[2016-08-01] MEDS ORDERED: DO NOT ADM ANY ANTICOAGULANT DRUGS XX PRN (14:00)
[2016-08-01] MEDS: LACTATED RINGER'S 1000 ML INJ 1,000 ML IV SCH ×2 (15:53→22:15)
[2016-08-01] MEDS: PANTOPRAZOLE SODIUM 40 MG VIAL IV PUSH SCH (15:53)
--- NOTE | 2016-08-01 15:59 | EKG ---
Date Performed: 08/01/2016 Time Performed: 05:38:44 PTAGE: 65 years EKG: Sinus rhythm . Right bundle branch block Possible anterior infarct - age undetermined Inferior T wave changes are nonspecific Low QRS voltages in precordial leads Compared to prior tracing no significant change Abno rmal ECG PREVIOUS TRACING : 01/04/2016 21.22 DOCTOR: Rula Jaffe Interpretating Date/Time 08/01/2016 15:56:15
[2016-08-01] MEDS: ACETAMINOPHEN/HYDROcodone 325 MG/7.5 MG TAB PO PRN ×3 (17:04→23:27)
[2016-08-01] MEDS: PRAMIPEXOLE DIHYDROCHLORIDE 0.25 MG TAB PO SCH (20:40)
[2016-08-02] VITALS (13 sets, daily range): BP systolic 97–164; BP diastolic 56–71; PULSE 68–96; RESP 16–21; TEMP 97.7–99.1; O2SAT 93–100
[2016-08-02] MEDS: ZOLPIDEM TARTRATE 5 MG TAB PO PRN ×2 (00:13→21:58)
[2016-08-02] MEDS: metroNIDAZOLE 500 MG INJ 100 ML IV SCH ×4 (02:20→20:20)
[2016-08-02] MEDS: LACTATED RINGER'S 1000 ML INJ 1,000 ML IV SCH ×2 (02:27→15:28)
[2016-08-02] MEDS: CHLORHEXIDINE GLUCONATE 2 % 1 PACK (2 CLOTHS)(taper/protocol) TOP SCH (04:00)
[2016-08-02] MEDS: ACETAMINOPHEN/HYDROcodone 325 MG/7.5 MG TAB PO PRN ×3 (04:14→15:29)
[2016-08-02] MEDS: VANCOMYCIN 1,500 MG/NS 500 ML IV SCH ×4 (04:14→15:29)
[2016-08-02 04:41] LABS: AUTOMATED NEUTROPHIL # 5.7 TH/MM3 (1.8-7.7); BASOPHIL # 0.1 TH/MM3 (0-0.2); BASOPHIL % 0.6 % (0.0-2.0); EOSINOPHIL # 0.2 TH/MM3 (0-0.4); EOSINOPHIL % 2.6 % (0.0-4.0); HEMATOCRIT 30.9 % (35.0-46.0); LYMPH % 17.1 % (9.0-44.0); LYMPHOCYTE # 1.5 TH/MM3 (1.0-4.8); MEAN CELL VOLUME 85.7 FL (80.0-100.0); MEAN CORPUSCULAR HEMOGLOBIN 28.7 PG (27.0-34.0); MEAN CORPUSCULAR HGB CONC 33.5 % (32.0-36.0); MONO % 14.5 % (0.0-8.0); NEUT % 65.2 % (16.0-70.0); PLATELET COUNT 904 TH/MM3 (150-450); RED BLOOD COUNT 3.61 MIL/MM3 (4.00-5.30); RED CELL DISTRIBUTION WIDTH 16.5 % (11.6-17.2); WHITE BLOOD COUNT 8.7 TH/MM3 (4.0-11.0)
[2016-08-02] MEDS: CEFEPIME INJ 2,000 MG in SODIUM CHLORIDE 0.9% INJ 100 ML IV SCH ×3 (05:50→20:20)
[2016-08-02 06:25] LABS: HEMO FLAGS AUTO DIFF
--- NOTE | 2016-08-02 06:59 | MP ---
cc: EFREN OLSON M.D. DATE OF PROCEDURE 07/28/2016 PROCEDURE Incision and drainage abdominal wall abscess. PREOPERATIVE DIAGNOSIS Abdominal wall abscess. POSTOPERATIVE DIAGNOSIS Abdominal wall abscess. ANESTHESIA Local. SURGEON MD Art ESTIMATED BLOOD LOSS 50 mL. COMPLICATIONS None. DRAINS None. Colostomy bags x 2 applied. PROCEDURE IN DETAIL The patient had left lateral lower abdominal wall prepped with Betadine and draped. The skin was infiltrated with local anesthetic and a transverse incision was made directly over the site were watery stool-like material was draining. After opening this, a large amount of material extruded and the fluctuance on the abdominal wall subsided and essentially resolved. Laterally there was a second area of fluctuance and this was incised after injecting this as well. A large amount of watery stool-like material initially gushed and then slowed to a small trickle. Both of these areas were cleaned with saline and peroxide and the skin then prepped and two colostomy appliances were applied to these areas. These were applied to protect the skin and allow for drainage to be partially quantified as well. The erythema on the abdominal wall substantially improved after this had been performed and after this was completed, the patient was observed and was seen to be normotensive. She tolerated the procedure well. MD LUCAS Flynn/BLAIR /5:55 PM /6:55 AM
[2016-08-02 07:50] LABS: BANDS 25 % (0-6); EOSINOPHILS 1 % (0-4); METAMYELOCYTES 2 % (0-1); NEUTROPHIL # MANUAL DIFF 6.7 TH/MM3 (1.8-7.7); PLATELET ESTIMATE SMEAR HIGH (NORMAL); PLATELET MORPHOLOGY NORMAL (NORMAL); POLYS (SEG NEUTROPHILS) 50 % (16-70); SCAN/DIFF FINAL DIFF MANUAL; WBC DIFF SAMPLE 100
[2016-08-02] MEDS: SODIUM CHLORIDE 0.9% FLUSH 5 ML FLUSH IVF SCH ×2 (09:19→20:21)
[2016-08-02] MEDS: SODIUM CHLORIDE 0.9% FLUSH 5 ML FLUSH FLUSH SCH ×2 (09:19→20:21)
--- NOTE | 2016-08-02 09:21 | MP ---
cc: LANDRY VELEZ M.D. DATE OF SURGERY: 07/29/2016 PREOPERATIVE DIAGNOSIS Abscess to the left flank, left lower abdomen. POSTOPERATIVE DIAGNOSIS Subcutaneous abscess with two enterocutaneous fistulas from apparent small bowel from previous surgery done in [place]. ANESTHESIA General. SURGEON Dr. Velez. PROCEDURE 1. Drainage of abdominal wall abscess with exclusion of two fistulous tracts with red rubber tube and application of vac dressing. 2. sharp Debridement of necrotic subcutaneous tissue, fascia, skin. INDICATIONS This is an unfortunate pleasant lady who has a very complex abdominal wound. 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 She had a large bowel fistula that was treated up in [place] the last couple weeks and now she has developed a small bowel fistula on the left side. PROCEDURE The patient was taken to the operating room and placed in the supine position. She had two incisions, a small incision to decompress fair amount of purulent material with some other enteric contents were noted as well. An ostomy bag was placed by Dr. Cordova. We removed all this, prepped her abdomen. I made an incision, extending the incision medially where with blunt dissection I can palpate just under the skin to the subcutaneous tissue and two small openings were identified and small bowel appears to be a bridge between the two of them. We then irrigate copiously, sharp debridement is done to normal-appearing tissue circumferentially, does not track over to the right side of her abdomen. I aggressively debride with blunt dissection because I know the small bowel is close in proximity from her previous surgery. After adequate debridement I then elected to gently thread two red rubber tubes, one in each of the fistulous tracts that were in the subcutaneous tissue underneath the skin. Each red rubber catheter went in different directions but the two holes connected with a bridge in between. We gently irrigated these and so we could get them to advance into the small bowel to decompress these because they were directly in the wound. Once these two decompressive red rubber tube was replaced in the fistulous tract they were secured with Vicryl suture in the subcutaneous tissue. We then place a black sponge on the inferior aspect and a white sponge over the fistulous tract that had been excluded with the red rubber tube. We then attach it to the appliance with the two red rubber tubes coming out through the vac which was secured and sealed with a good seal. I am hoping that we can allow this wound to heal with excluding these fistulous tracts, to keep the wound clean and hopefully these fistulous tracts will close once the wound is healed. Will plan return to the operating room in a few days to check the wounds and see if any further debridement is required. I discussed with the after the findings. MD NOAM Romero/AMOS /10:00 PM /9:07 AM TIFFANI
--- NOTE | 2016-08-02 11:47 | HHI.PR ---
Subjective Subjective Notes DAILY PROGRESS NOTE FOR SURGICAL ATTENDING, DR. LANDRY VELEZ Resting in bed Says pain is better today Wants to work with PT today Objective Vitals/I&O Vital Signs Date Time Temp Pulse Resp B/P Pulse Ox O2 Delivery O2 Flow Rate FiO2 08/02/16 10:00 83 08/02/16 08:40 93 21 08/02/16 08:00 98.8 20 157/64 08/02/16 07:00 Nasal Cannula 2.00 Labs Laboratory Tests Test 08/02/16 04:01 White Blood Count 8.7 Red Blood Count 3.61 Hemoglobin 10.4 Hematocrit 30.9 Mean Corpuscular Volume 85.7 Mean Corpuscular Hemoglobin 28.7 Mean Corpuscular Hemoglobin 33.5 Concent Red Cell Distribution Width 16.5 Platelet Count 904 Mean Platelet Volume 6.3 Neutrophils (%) (Auto) 65.2 Lymphocytes (%) (Auto) 17.1 Monocytes (%) (Auto) 14.5 Eosinophils (%) (Auto) 2.6 Basophils (%) (Auto) 0.6 Neutrophils # (Auto) 5.7 Lymphocytes # (Auto) 1.5 Monocytes # (Auto) 1.3 Eosinophils # (Auto) 0.2 Basophils # (Auto) 0.1 CBC Comment AUTO DIFF Differential Total Cells 100 Counted Neutrophils % (Manual) 50 Band Neutrophils % 25 Lymphocytes % 9 Monocytes % 13 Eosinophils % 1 Neutrophils # (Manual) 6.7 Metamyelocytes 2 Differential Comment FINAL DIFF MANUAL Platelet Estimate HIGH Platelet Morphology Comment NORMAL Creatinine 0.44 Estimat Glomerular Filtration 143 Rate Calcium Level 7.9 Date/Time Procedure Status Source Growth 07/28/16 13:15 Aerobic Blood Culture - Final Complete Blood Peripheral NO GROWTH IN 5 DAYS 07/28/16 13:15 Anaerobic Blood Culture - Final Complete Blood Peripheral NO GROWTH IN 5 DAYS Radiology Last Impressions Chest X-Ray 07/29/16 0000 Signed Impressions: Service Date/Time: Friday, July 29, 2016 09:32 - CONCLUSION: 1. Bibasilar atelectasis, right greater than left. 2. Compensated cardiomegaly. Fred Solis MD Abdomen/Pelvis CT 07/28/16 0735 Signed Impressions: Service Date/Time: Thursday, July 28, 2016 09:50 - CONCLUSION: 1. There is diffuse and extensive subcutaneous emphysema around the abdominal wall from patient's right lateral abdominal wall all the way across midline to the left lateral abdominal wall. 2. There appears to be of fluid collection in the anterior left abdominal wall suspicious for a subcutaneous abscess. There is nonspecific edema throughout the subcutaneous tissues of the abdominal wall. 3. No acute intra-abdominal/pelvic pathology. 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 Velez -Obtain consents -Clear liquids; NPO after MN -PT eval today -Pain control -Okay to transfer to the floor from GS standpoint NOTE FOR SURGICAL ATTENDING, DR. LANDRY VELEZ I agree with above assessment and plan. Return to the OR Saturday for VAC change and fistula exclusion The exam, history, and the medical decision-making described in the above note were completed with the assistance of the mid-level provider. I reviewed and agree with the findings presented. I attest that I had a [id number] encounter with the patient on the same day, and personally performed and documented my assessment and findings in the medical record. The following services were provided during this hospital visit: Chart data review, vital sign assessments/reviewing monitor data Review of consultations notes if present. Medication orders/review and/or management Ordering and/or reviewing lab tests Ordering and/or interpreting/reviewing x-rays and/or diagnostic studies Care of the patient and discussion of the patient with the care team Documentation time To help prompt me to consider important information that might be impacting today's encounter and assessment, information from prior notes written by myself or my colleagues may have been "brought forward/copy and pasted" into today's note. Problem Qualifiers (1) Subcutaneous abscess: Arabella Pickering Aug 02, 2016 11:46 Landry Velez MD Aug 03, 2016 17:32
--- NOTE | 2016-08-02 12:03 | HHI.FPPN ---
Subjective Remarks Pt seen and examined this morning. No acute events overnight. She feels slightly improved from yesterday. Pain well controlled overall. Denies chest pain, SOB. Endorses vaginal itching, burning and discomfort. Pt anticipates returning to the OR tomorrow for wound vac change. (Sumaya Wheeler MD R2) Objective Vitals Vital Signs Date Time Temp Pulse Resp B/P Pulse Ox O2 Delivery O2 Flow Rate FiO2 08/02/16 10:00 83 08/02/16 08:40 93 21 08/02/16 08:00 98.8 79 20 157/64 98 08/02/16 08:00 95 08/02/16 07:00 98 Nasal Cannula 2.00 08/02/16 06:00 70 08/02/16 05:20 18 08/02/16 04:00 72 08/02/16 04:00 97.7 72 16 164/71 98 08/02/16 02:00 68 08/02/16 00:00 71 08/02/16 00:00 97.8 71 16 136/62 98 08/01/16 22:00 70 08/01/16 20:00 76 08/01/16 20:00 98.7 76 23 128/59 96 08/01/16 19:13 95 Nasal Cannula 2.00 08/01/16 19:00 99 Nasal Cannula 2.00 08/01/16 18:00 96 08/01/16 16:00 70 08/01/16 16:00 97.8 70 20 145/66 96 08/01/16 14:15 86 14 100/47 96 Nasal Cannula 2 08/01/16 14:00 78 14 98/46 95 Nasal Cannula 2 08/01/16 13:48 78 08/01/16 13:48 98.1 78 14 101/48 95 Nasal Cannula 2 I/O 08/01/16 08/01/16 08/01/16 08/02/16 08/02/16 08/02/16 07:00 15:00 23:00 07:00 15:00 23:00 Intake Total 1218 ml 1477 ml 2358 ml 1245 ml Output Total 1200 ml 1135 ml 1025 ml 650 ml Balance 18 ml 342 ml 1333 ml 595 ml Intake Oral 0 ml 400 ml 240 ml IV Total 1218 ml 477 ml 1958 ml 1005 ml Other 1000 ml Output Urine Total 1200 ml 1125 ml 775 ml 600 ml Stool Total 0 ml 0 ml 0 ml 0 ml Drainage Total 10 ml 250 ml 50 ml (Sumaya Wheeler MD R2) Result Diagram: 08/02/1640008/02/16 0401 Objective Remarks GENERAL: NAD, lying in bed, appears uncomfortable NEURO: AOx3. 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 SKIN: Warm and dry. Patient with wound drain in place, suctioning out minimal dark green almost black fluid. Improving erythema surrounding wound site. There is a 1' x 1' backwards L-shaped incision extending from her midline to her right lower quadrant held together by sutures. In the middle of the midline incision,3cm area of wound dehiscence, revealing some subcutaneous tissue, minimal serosanguineous drainage. HEAD: Normocephalic. Atraumatic. EYES: EOMI. No scleral icterus. No injection or drainage. ENT: No nasal drainage. Dry mucous membranes. CARDIOVASCULAR: Regular rate and rhythm without murmurs, gallops, or rubs RESPIRATORY: Anterior and lateral lung ballard auscultated as pt movement limited due to pain, clear to auscultation. No accessory muscle use. GASTROINTESTINAL: Abdomen obese. For wound, drain, and incisions, see skin above. Patient reports that she is exquisitely tender to palpation throughout her abdomen, especially in left lower quadrant. GENITOURINARY: Small about of clumpy white vaginal discharge appreciated. Discomfort of mons pubis. 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 Plan return to the operating room for reevaluation on Saturday/today, 08/01/16. She was admitted with sepsis, anemia, and hypotension, and is being managed for the following: Discharge Planning D/C pending clearance by general surgery. Time frame is unclear as patient is anticipated to return to the OR on 08/03/16. sdw Dr. Sebastian wdw Dr. Mckinney (Sumaya Wheeler MD R2) Attending Attestation Pt. examined and case discussed with resident physicians I have read the above note and agree with the assessment/plan as discussed with me I was involved in all medical decision making for this patient Fred Mckinney MD (Fred Mckinney MD) Problem List: (1) Abscess of abdominal wall Status: Acute Plan: Patient with significant abscess of abdominal wall and enterocutaneous fistula General Surgery Consulted, appreciate recommendations and interventions POD day #4, status post incision and drainage and washout of left abdominal wall , with wound vac placement due to small bowel fistulae. POD day #1 wound vac change -Plan for patient to return to OR for wound VAC change on 08/03. -Pain control with [place] 7.5-325 mg po Q4hrs prn pain 6-10, morphine 2 mg IV q3h prn breakthrough, hold if SBP < 110 or DBP < 60 -Blood cultures NGTD -Met sepsis criteria; tachycardic, tachypneic, with leukocytosis, Lactic acid 1.8 on admission -We'll consider infectious disease consult regarding possibility of long-term antibiotic use Broad Spectrum Antibiotics: - Vancomycin, pharm consult (07/28- ) - Cefepime 2gm IV q8h (07/28- ) - Flagyl 500 mg IV q6h (07/28- ) Imaging 07/28 - Abdomen/Pelvis CT: Diffuse and extensive subcutaneous emphysema around the abdominal wall from patient's right lateral abdominal wall across midline to left lateral abdominal wall. Fluid collection in anterior left abdominal wall suspicious for subcutaneous abscess. Nonspecific edema throughout subcutaneous tissues. No acute intra-abdominal or pelvic pathology. Given extent of erythema and edema of skin and subcutaneous abscess, we will cover with broad-spectrum antibiotics (2) Sepsis Status: Acute Plan: See plan above below. Source likely from wound infection/abscess. - UA WNL, no culture indicated - CXR, no pneumonia (3) SOB (shortness of breath) Status: Resolved Plan: SOB resolved. Possibly due to aggressive fluid hydration and fluid overload. - CXR 07/29: Bibasilar atelectasis, right greater than left. Compensated cardiomegaly. - Incentive spirometry (4) Anemia Status: Acute Plan: - Hgb on admission 6.8, s/p 4 units on 07/28 - H&H 10.4 and 30.9 respectively this morning, improving - Continue to monitor - Iron panel significant for anemia of chronic disease - B12 and Folate both elevated - GI consulted, appreciate recommendations. - No indication of GI bleed at this time. If H&H continues to drop we'll consider EGD versus colonoscopy versus a bleeding scan - PPI: Protonix 40 mg IV daily - Transfuse as needed (5) Vaginal candidiasis Status: Acute Plan: Patient endorses vaginal discomfort, burning and itching. On exam small amount of white curd-like discharge appreciated. -We'll treat yeast infection with Monistat 7 -Pt encouraged to keep vaginal area as dry as possible -Increased risk for recurrence due to antibiotic use (6) Nutrition, metabolism, and development symptoms Status: Acute Plan: Fluids: LR IV at 100 ml per hour Electrolytes: results from this morning pending continue to monitor and replete as necessary Nutrition: Nothing by mouth DVT PPX: SCDs. No chemical anticoagulation in anticipation of return to OR GI PPX: 40 mg Protonix IV daily (Sumaya Wheeler MD R2) Problem Qualifiers (1) Anemia: Qualified Code: D64.9 - Anemia, unspecified type Sumaya Wheeler MD R2 Aug 02, 2016 12:03 Fred Mckinney MD Aug 02, 2016 18:59
[2016-08-02] MEDS: PANTOPRAZOLE SODIUM 40 MG VIAL IV PUSH SCH (12:40)
[2016-08-02] MEDS ORDERED: PHARMACY ORDERED LAB XX ONE (15:45)
[2016-08-02] MEDS ORDERED: FUROSEMIDE 20 MG/2 ML VIAL IV PUSH ONE (16:30)
[2016-08-02 19:26] LABS: BICARBONATE 26.1 MEQ/L (21.0-32.0); CALCIUM-PROTEIN CORRECTED 9.4 MG/DL (8.5-10.1); POTASSIUM 4.4 MEQ/L (3.5-5.1)
[2016-08-02] MEDS: MICONAZOLE NITRATE 2% VAG CREAM 45 GM VAGINAL SCH (20:20)
[2016-08-02] MEDS: PRAMIPEXOLE DIHYDROCHLORIDE 0.25 MG TAB PO SCH (20:20)
[2016-08-03] VITALS: BP 128/74; PULSE 71; RESP 21; TEMP 98.9; O2SAT 95
[2016-08-03] MEDS: metroNIDAZOLE 500 MG INJ 100 ML IV SCH ×4 (02:14→20:17)
[2016-08-03] MEDS ORDERED: PHARMACY ORDERED LAB XX ONE (03:45)
[2016-08-03 04:00] VITALS: BP 124/76; PULSE 82; RESP 18; TEMP 99.1; O2SAT 96
[2016-08-03] MEDS: VANCOMYCIN 1,500 MG/NS 500 ML IV SCH ×4 (04:52→21:49)
[2016-08-03] MEDS: CEFEPIME INJ 2,000 MG in SODIUM CHLORIDE 0.9% INJ 100 ML IV SCH ×4 (04:52→20:21)
[2016-08-03 05:51] LABS: HEMATOCRIT 32.2 % (35.0-46.0); MEAN CELL VOLUME 84.7 FL (80.0-100.0); MEAN CORPUSCULAR HEMOGLOBIN 27.3 PG (27.0-34.0); MEAN CORPUSCULAR HGB CONC 32.2 % (32.0-36.0); PLATELET COUNT 940 TH/MM3 (150-450); RED CELL DISTRIBUTION WIDTH 16.3 % (11.6-17.2); REVIEW FLAG FINAL; WHITE BLOOD COUNT 9.2 TH/MM3 (4.0-11.0)
[2016-08-03 07:39] LABS: MAGNESIUM 1.7 MG/DL (1.5-2.5); POTASSIUM 3.6 MEQ/L (3.5-5.1); VANCOMYCIN TROUGH 17.3 MCG/ML (5.0-10.0)
[2016-08-03 08:00] VITALS: BP 113/57; PULSE 72; RESP 19; TEMP 98.3; O2SAT 97
[2016-08-03] MEDS: SODIUM CHLORIDE 0.9% FLUSH 5 ML FLUSH FLUSH SCH (08:26)
[2016-08-03] MEDS: SODIUM CHLORIDE 0.9% FLUSH 5 ML FLUSH IVF SCH ×2 (08:26→20:17)
[2016-08-03] MEDS: LACTATED RINGER'S 1000 ML INJ 1,000 ML IV SCH ×3 (09:20→20:17)
[2016-08-03] MEDS: MORPHINE SULFATE 4 MG/ML INJ IV PUSH PRN ×2 (09:21→12:56)
--- NOTE | 2016-08-03 09:32 | HHI.FPPN ---
Subjective Remarks Pt seen and examined this morning. Overnight pt experienced lower extremity discomfort which she attributes to restless leg syndrome, her pramipexole was increased to her home dose which she was able to verify. She denies chest pain, SOB. She believes that lower extremity edema has improved and her legs feel "less tight" than yesterday. Abdominal pain is 5/10 in intensity, relieved by pain medications. She anticipates going to the OR at 2pm for wound vac change. She has been cleared to be transferred to a less acute floor prior to surgery. Pts nurse has no acute concerns. (Sumaya Wheeler MD R2) Objective Vitals Vital Signs Date Time Temp Pulse Resp B/P Pulse Ox O2 Delivery O2 Flow Rate FiO2 08/03/16 04:00 99.1 82 18 124/76 96 08/03/16 00:00 98.9 71 21 128/74 95 08/02/16 21:27 95 Nasal Cannula 2.00 08/02/16 20:00 99.1 85 19 117/56 100 08/02/16 19:00 98 Nasal Cannula 2.00 08/02/16 18:00 83 08/02/16 16:00 83 08/02/16 16:00 98.8 92 21 97/66 98 08/02/16 14:00 96 08/02/16 12:00 99.0 78 17 142/64 100 08/02/16 12:00 96 08/02/16 10:00 83 I/O 08/02/16 08/02/16 08/02/16 08/03/16 08/03/16 08/03/16 07:00 15:00 23:00 07:00 15:00 23:00 Intake Total 1245 ml 1537 ml 1287 ml 869 ml Output Total 650 ml 1750 ml 1610 ml 580 ml Balance 595 ml -213 ml -323 ml 289 ml Intake Oral 240 ml 400 ml 250 ml IV Total 1005 ml 1137 ml 1037 ml 869 ml Output Urine Total 600 ml 1100 ml 1500 ml 350 ml Stool Total 0 ml Drainage Total 50 ml 650 ml 110 ml 230 ml (Sumaya Wheeler MD R2) Result Diagram: 08/03/16 0428 08/03/16 0428 Objective Remarks GENERAL: NAD, lying in bed, appears uncomfortable NEURO: AOx3. 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 SKIN: Warm and dry. Patient with wound drain in place over left lower quadrant , suctioning out dark green/black fluid. Erythema surrounding wound site. There is a 1' x 1' backwards L-shaped incision extending from her midline to her right lower quadrant held together by sutures. In the middle of the midline incision,3cm area of wound dehiscence, revealing some subcutaneous tissue, serosanguineous drainage. HEENT: Normocephalic. Atraumatic. EOMI. No scleral icterus. No injection or drainage. No nasal drainage. Dry mucous membranes. CARDIOVASCULAR: Regular rate and rhythm without murmurs, gallops, or rubs RESPIRATORY: Anterior and lateral lung ballard auscultated as pt movement limited due to pain, clear to auscultation. No accessory muscle use. GASTROINTESTINAL: Abdomen obese. For wound, drain, and incisions, see skin above. Patient reports that she is exquisitely tender to palpation throughout her abdomen, especially in left lower quadrant. GENITOURINARY: Small about of clumpy white vaginal discharge appreciated. Discomfort of mons pubis. 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 Plan return to the operating room for reevaluation on Saturday/today, 08/01/16. She was admitted with sepsis, anemia, and hypotension, and is being managed for the following: Discharge Planning D/C pending clearance by general surgery. Time frame is unclear as patient is anticipated to return to the OR today. wdw Dr. Mckinney, Dr. Sebastian (Sumaya Wheeler MD R2) Attending Attestation Patient examined and case discussed with resident physician I have read the above note and agree with the assessment/plan as discussed with me I was involved in all medical decision making for this patient Fred Mckinney M.D. (Fred Mckinney MD) Problem List: (1) Abscess of abdominal wall Status: Acute Plan: Patient with significant abscess of abdominal wall and enterocutaneous fistula General Surgery Consulted, appreciate recommendations and interventions POD day #5, status post incision and drainage and washout of left abdominal wall , with wound vac placement due to small bowel fistulae. POD day #2 wound vac change -Plan for patient to return to OR for wound VAC change today at 2 PM. -Pain control with morphine 2 mg IV q3h prn breakthrough, hold if SBP < 110 or DBP < 60, oral pain medication on hold as patient is nothing by mouth in anticipation of surgery -Blood cultures NGTD -Met sepsis criteria; tachycardic, tachypneic, with leukocytosis, Lactic acid 1.8 on admission -We'll consider infectious disease consult regarding possibility of long-term antibiotic use Broad Spectrum Antibiotics: - Vancomycin, pharm consult (07/28- ) - Cefepime 2gm IV q8h (07/28- ) - Flagyl 500 mg IV q6h (07/28- ) Imaging 07/28 - Abdomen/Pelvis CT: Diffuse and extensive subcutaneous emphysema around the abdominal wall from patient's right lateral abdominal wall across midline to left lateral abdominal wall. Fluid collection in anterior left abdominal wall suspicious for subcutaneous abscess. Nonspecific edema throughout subcutaneous tissues. No acute intra-abdominal or pelvic pathology. Given extent of erythema and edema of skin and subcutaneous abscess, we will cover with broad-spectrum antibiotics (2) Sepsis Status: Acute Plan: See plan above below. Source likely from wound infection/abscess. - UA WNL, no culture indicated - CXR, no pneumonia (3) SOB (shortness of breath) Status: Resolved Plan: SOB resolved. Possibly due to aggressive fluid hydration and fluid overload. - CXR 07/29: Bibasilar atelectasis, right greater than left. Compensated cardiomegaly. - Incentive spirometry (4) Anemia Status: Acute Plan: - Hgb on admission 6.8, s/p 4 units on 07/28 - H&H 10.4 and 32.2 respectively this morning, improving - Continue to monitor - Iron panel significant for anemia of chronic disease - B12 and Folate both elevated - GI consulted, appreciate recommendations. - No indication of GI bleed at this time. If H&H continues to drop we'll consider EGD versus colonoscopy versus a bleeding scan - PPI: Protonix 40 mg IV daily - Transfuse as needed (5) Lower extremity edema Status: Acute Plan: Patient with 2+ bilateral lower extremity edema on exam. -Patient requires larger SCDs, nurse to assist with this -Patient received 20 mg Lasix IV 1 -Currently nothing by mouth and on IV fluids -Will use caution with fluids due to the concern for possible fluid overload (6) Vaginal candidiasis Status: Acute Plan: Patient endorses vaginal discomfort, burning and itching. -Continue Monistat 7 -Pt encouraged to keep vaginal area as dry as possible -Increased risk for recurrence due to antibiotic use and body habitus (7) Nutrition, metabolism, and development symptoms Status: Acute Plan: Fluids: LR IV at 100 ml per hour Electrolytes: results from this morning pending continue to monitor and replete as necessary Nutrition: Nothing by mouth DVT PPX: SCDs. No chemical anticoagulation in anticipation of return to OR GI PPX: 40 mg Protonix IV daily (Sumaya Wheeler MD R2) Problem Qualifiers (1) Anemia: Qualified Code: D64.9 - Anemia, unspecified type Sumaya Wheeler MD R2 Aug 03, 2016 09:32 Fred Mckinney MD Aug 03, 2016 14:27
[2016-08-03] MEDS: PANTOPRAZOLE SODIUM 40 MG VIAL IV PUSH SCH (11:18)
[2016-08-03 12:00] VITALS: BP 113/60; PULSE 76; RESP 24; TEMP 98.5; O2SAT 97
[2016-08-03] MEDS ORDERED: PROPOFOL 200 MG/20 ML AMP IV ONE (12:00)
[2016-08-03] MEDS ORDERED: ONDANSETRON HCL 4 MG/2 ML VIAL IV PUSH ONE (12:00)
[2016-08-03] MEDS ORDERED: NEOSTIGMINE 3 MG/3 ML SYR IV ONE (12:00)
[2016-08-03] MEDS ORDERED: PHENYLEPH/NS 1000 MCG/10 ML SYR IV ONE (12:00)
[2016-08-03] MEDS ORDERED: ePHEDrine/NS 25 MG/5 ML SYR IV ONE (12:00)
[2016-08-03 13:17] LABS: CALCIUM-PROTEIN CORRECTED 9.2 MG/DL (8.5-10.1)
[2016-08-03] MEDS ORDERED: FAMOTIDINE 20 MG/2 ML VIAL ONE (13:40)
[2016-08-03] MEDS ORDERED: DEXAMETHASONE SOD PHOS 4 MG/ML VIAL ONE (13:40)
[2016-08-03] MEDS ORDERED: fentaNYL CITRATE 250 MCG/5 ML AMP ONE (13:40)
[2016-08-03] MEDS ORDERED: MIDAZOLAM HCL 2 MG/2 ML VIAL ONE (13:40)
[2016-08-03] MEDS ORDERED: ACETAMINOPHEN 1000 MG/100 ML VIAL IV ONE (13:40)
[2016-08-03] MEDS ORDERED: *MEPERIDINE 25 MG INJ VIAL PERIprocedural Use ONLY ONE (16:11)
[2016-08-03] MEDS ORDERED: *PROMETHAZINE 25 MG/ML VIAL PERIprocedural use ONLY ONE (16:20)
[2016-08-03] MEDS ORDERED: *ONDANSETRON 4 MG VIAL PERIprocedural Use ONLY ONE (16:20)
[2016-08-03 16:34] VITALS: BP 125/58; PULSE 81; RESP 18; TEMP 96.6; O2SAT 95
[2016-08-03] MEDS ORDERED: DO NOT ADM ANY ANTICOAGULANT DRUGS XX PRN (16:45)
[2016-08-03] MEDS: ACETAMINOPHEN/HYDROcodone 325 MG/7.5 MG TAB PO PRN ×2 (17:07→21:48)
[2016-08-03 20:00] VITALS: BP 101/52; PULSE 112; RESP 20; TEMP 97.4; O2SAT 98
[2016-08-03] MEDS: MICONAZOLE NITRATE 2% VAG CREAM 45 GM VAGINAL SCH (20:18)
[2016-08-03] MEDS: PRAMIPEXOLE DIHYDROCHLORIDE 0.25 MG TAB PO SCH (21:48)
[2016-08-03] MEDS: ZOLPIDEM TARTRATE 5 MG TAB PO PRN (22:52)
[2016-08-04] VITALS (7 sets, daily range): BP systolic 100–129; BP diastolic 52–60; PULSE 52–95; RESP 16–18; TEMP 96–98.1; O2SAT 90–99
[2016-08-04] MEDS: ACETAMINOPHEN/HYDROcodone 325 MG/7.5 MG TAB PO PRN ×4 (02:56→20:47)
[2016-08-04] MEDS: metroNIDAZOLE 500 MG INJ 100 ML IV SCH ×4 (02:58→20:35)
[2016-08-04 05:31] LABS: AUTOMATED NEUTROPHIL # 6.8 TH/MM3 (1.8-7.7); BASOPHIL # 0.1 TH/MM3 (0-0.2); BASOPHIL % 0.6 % (0.0-2.0); EOSINOPHIL # 0.2 TH/MM3 (0-0.4); EOSINOPHIL % 2.2 % (0.0-4.0); HEMATOCRIT 31.2 % (35.0-46.0); LYMPH % 15.2 % (9.0-44.0); LYMPHOCYTE # 1.4 TH/MM3 (1.0-4.8); MEAN CELL VOLUME 84.1 FL (80.0-100.0); MEAN CORPUSCULAR HEMOGLOBIN 27.9 PG (27.0-34.0); MEAN CORPUSCULAR HGB CONC 33.1 % (32.0-36.0); PLATELET COUNT 837 TH/MM3 (150-450); RED BLOOD COUNT 3.72 MIL/MM3 (4.00-5.30); RED CELL DISTRIBUTION WIDTH 16.3 % (11.6-17.2); WHITE BLOOD COUNT 9.5 TH/MM3 (4.0-11.0)
[2016-08-04] MEDS: MORPHINE SULFATE 4 MG/ML INJ IV PUSH PRN ×2 (05:33→18:44)
[2016-08-04] MEDS: CEFEPIME INJ 2,000 MG in SODIUM CHLORIDE 0.9% INJ 100 ML IV SCH ×3 (05:34→23:23)
[2016-08-04] MEDS: LACTATED RINGER'S 1000 ML INJ 1,000 ML IV SCH ×3 (05:34→20:37)
[2016-08-04 05:39] LABS: HEMO FLAGS AUTO DIFF
[2016-08-04 05:46] LABS: BICARBONATE 33.3 MEQ/L (21.0-32.0); MAGNESIUM 1.8 MG/DL (1.5-2.5); POTASSIUM 3.8 MEQ/L (3.5-5.1)
--- NOTE | 2016-08-04 06:21 | MP ---
cc: LANDRY VELEZ DATE OF SURGERY: August 01, 2016 PREOPERATIVE DIAGNOSIS enterocutaneous fistula with open wound. POSTOPERATIVE DIAGNOSIS Enterocutaneous fistula with open wound. PROCEDURE 1. Exclusion of two fistula from the open wound with application of Vac device. 2. Irrigation debridement of necrotic tissue, subcutaneous tissue and skin. ANESTHESIA General SURGEON Dr. Velez. TILE CLASSIFIER: Ms Arabella LINARES The WATCH ASSEMBLER was present from beginning to the end of the case assisting in all portions of the procedure. It was necessary to have this individual in the room to assist in the above surgical procedure. The surgical procedure was assisted by the WATCH ASSEMBLER. The WATCH ASSEMBLER presence was necessary throughout the case for appropriate retraction, dissection, visualization, and resection of the important anatomical structures during the surgical procedure. The WATCH ASSEMBLER was assisting throughout the entirety of the operation. The skill set of the WATCH ASSEMBLER is medically and surgically necessary to safely complete the surgical procedure. During the surgical case, the operating room eligibility technician was working instrument table and passing instruments to the attending surgeon and WATCH ASSEMBLER. The WATCH ASSEMBLER was directly assisting the operating surgeon and involved in the technical aspects of the surgical case. INDICATIONS This is a pleasant unfortunate 65-year-old female who had surgery up in [place] to close a colocutaneous fistula. This was closed but unfortunately she developed a small bowel fistula in the left side of her abdomen where she has a huge hernia defect as well. She presented with an abscess of the enterocutaneous fistula that were draining and irritating the skin. PROCEDURE The patient brought to the operating room after anesthesia of the old vac device was removed. She had two red rubbers in each of the fistulas that were removed. We then irrigated copiously debrided necrotic tissue, subcutaneous tissue. The two small openings were identified. We then attempted to exclude these fistulas using a piece of the vac dressing that had been sandwiched between the occlusive dressings. Two nipples from a baby bottle were then secured to each of the fistulous after the nipple edge was cut. These were then secured to the granulation tissue. The vac sponge that had been sandwiched between two pieces of occlusive dressings were then placed over this to exclude the fistula drainage from the rest of the wound. The nipples were placed through this piece of the vac. We then placed a black sponge along the open wound and tunneled this out to a second wound in the left flank. The vac device was then placed on the suction with a good seal. We then placed a ostomy appliance around and over the nipples for drainage and containment of the fistula drainage. The patient tolerated the procedure, had no immediate postoperative complications. MD NOAM Romero/jessica /3:43 PM /6:09 AM MTDMandy
--- NOTE | 2016-08-04 09:58 | HHI.FPPN ---
Subjective Remarks Pt seen and examined this morning. No acute events overnight. Pt reports feeling significantly improved this morning. Lower extremity swelling is significantly improved. She has also noticed that abdominal erythema has significantly improved. Pt started to eat solid food last night and has tolerated her diet without nausea or vomiting. -flatus. She continues to experience abdominal pain that is partially relieved by pain medication. Objective Vitals Vital Signs Date Time Temp Pulse Resp B/P Pulse Ox O2 Delivery O2 Flow Rate FiO2 08/04/16 08:00 96.3 79 18 119/58 99 08/04/16 03:54 106/56 08/04/16 00:00 97.1 86 18 100/58 98 08/03/16 20:15 Nasal Cannula 2.00 21 08/03/16 20:00 97.4 112 20 101/52 98 08/03/16 18:07 16 08/03/16 17:00 Nasal Cannula 2.00 21 08/03/16 16:45 91 12 129/66 96 Nasal Cannula 2 08/03/16 16:34 96.6 81 18 125/58 95 08/03/16 16:30 87 12 119/68 98 Nasal Cannula 2 08/03/16 16:15 85 12 127/58 96 Nasal Cannula 2 08/03/16 16:03 98.4 95 12 124/56 97 Nasal Cannula 2 08/03/16 13:01 19 08/03/16 12:00 76 08/03/16 12:00 98.5 76 24 113/60 97 I/O 08/03/16 08/03/16 08/03/16 08/04/16 08/04/16 08/04/16 07:00 15:00 23:00 07:00 15:00 23:00 Intake Total 869 ml 969 ml 1272 ml 240 ml Output Total 580 ml 1575 ml 1010 ml 450 ml Balance 289 ml -606 ml 262 ml -210 ml Intake Oral 240 ml 240 ml IV Total 869 ml 969 ml 432 ml Other 600 ml Output Urine Total 350 ml 1400 ml 540 ml 250 ml Stool Total 150 ml Drainage Total 230 ml 175 ml 50 ml 50 ml Estimated Blood Loss 20 ml Other 400 ml # Bowel Movements 0 Result Diagram: 08/04/1644108/04/16441 Objective Remarks GENERAL: NAD, lying in bed, appears uncomfortable SKIN: Warm and dry. Patient with ostomy in place over left lower quadrant, minimal amount of dark green/brown material present. Improving erythema surrounding wound site. There is a 1' x 1' backwards L-shaped incision extending from her midline to her right lower quadrant held together by sutures. In the middle of the midline incision,3cm area of wound dehiscence, revealing some subcutaneous tissue, serosanguineous drainage. HEENT: Normocephalic. Atraumatic. EOMI. No scleral icterus. No injection or drainage. No nasal drainage. Dry mucous membranes. CARDIOVASCULAR: Regular rate and rhythm without murmurs, gallops, or rubs RESPIRATORY: Anterior and lateral lung ballard auscultated as pt movement limited due to pain, clear to auscultation. No accessory muscle use. GASTROINTESTINAL: Abdomen obese. See skin above. Patient reports that she is tender to palpation throughout her abdomen, especially in left lower quadrant. Hypoactive bowel sounds. MUSCULOSKELETAL: 1+ bilateral lower extremity edema, significantly improved from prior exam NEURO: Normal speech. 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 Plan return to the operating room for reevaluation on Saturday/today, 08/01/16. She was admitted with sepsis, anemia, and hypotension, and is being managed for the following: Discharge Planning D/C pending clearance by general surgery. Time frame is unclear as patient is anticipated to return to the OR today. wdw Dr. Mkcinney, Dr. Sebastian Problem List: (1) Abscess of abdominal wall Status: Acute Plan: Patient with significant abscess of abdominal wall and enterocutaneous fistula General Surgery Consulted, appreciate recommendations and interventions POD day #6, status post incision and drainage and washout of left abdominal wall , with wound vac placement due to small bowel fistulae. POD day #2 wound vac change POD #1 wound VAC change, debridement of abdominal wound -Pain control with morphine 2 mg IV q3h prn breakthrough, hold if SBP < 110 or DBP < 60, [place] one [id number] prn pain 610 -Blood cultures NGTD -Met sepsis criteria; tachycardic, tachypneic, with leukocytosis, Lactic acid 1.8 on admission -We'll consider infectious disease consult regarding possibility of long-term antibiotic use Broad Spectrum Antibiotics: - Vancomycin, pharm consult (07/28- ) - Cefepime 2gm IV q8h (07/28- ) - Flagyl 500 mg IV q6h (07/28- ) Imaging 07/28 - Abdomen/Pelvis CT: Diffuse and extensive subcutaneous emphysema around the abdominal wall from patient's right lateral abdominal wall across midline to left lateral abdominal wall. Fluid collection in anterior left abdominal wall suspicious for subcutaneous abscess. Nonspecific edema throughout subcutaneous tissues. No acute intra-abdominal or pelvic pathology. Given extent of erythema and edema of skin and subcutaneous abscess, we will cover with broad-spectrum antibiotics (2) Sepsis Status: Acute Plan: See plan above. Source likely from wound infection/abscess. - UA WNL, no culture indicated - CXR, no pneumonia (3) Anemia Status: Acute Plan: - Hgb on admission 6.8, s/p 4 units on 07/28 - H&H 10.4 and 31.2 respectively this morning, improving - Continue to monitor - Iron panel significant for anemia of chronic disease - B12 and Folate both elevated - GI consulted, appreciate recommendations. - No indication of GI bleed at this time. If H&H continues to drop we'll consider EGD versus colonoscopy versus a bleeding scan - PPI: Protonix 40 mg IV daily - Transfuse as needed (4) Lower extremity edema Status: Acute Plan: Improving Patient with 1+ bilateral lower extremity edema on exam. -SCDs - 20 mg Lasix po daily -Will use caution with fluids due to the concern for possible fluid overload (5) Vaginal candidiasis Status: Acute Plan: Patient endorses vaginal discomfort, burning and itching. -Continue Monistat 7 -Pt encouraged to keep vaginal area as dry as possible -Increased risk for recurrence due to antibiotic use and body habitus (6) Nutrition, metabolism, and development symptoms Status: Acute Plan: Fluids: LR IV at 100 ml per hour Electrolytes: results from this morning pending continue to monitor and replete as necessary Nutrition: Regular diet DVT PPX: SCDs. Consider Lovenox if patient is not anticipated to return to the OR GI PPX: 40 mg Protonix IV daily Problem Qualifiers (1) Anemia: Qualified Code: D64.9 - Anemia, unspecified type Sumaya Wheeler MD R2 Aug 04, 2016 09:58 DVT PPX: SCDs. No chemical anticoagulation in anticipation of return to OR GI PPX: 40 mg Protonix IV daily Problem Qualifiers (1) Anemia: Qualified Code: D64.9 - Anemia, unspecified type Sumaya Wheeler MD R2 Aug 04, 2016 09:58
[2016-08-04 10:51] LABS: BANDS 22 % (0-6); BASOPHILS 1 % (0-2); EOSINOPHILS 3 % (0-4); METAMYELOCYTES 1 % (0-1); NEUTROPHIL # MANUAL DIFF 7.2 TH/MM3 (1.8-7.7); PLATELET ESTIMATE SMEAR HIGH (NORMAL); PLATELET MORPHOLOGY NORMAL (NORMAL); POLYS (SEG NEUTROPHILS) 53 % (16-70); SCAN/DIFF FINAL DIFF MANUAL; WBC DIFF SAMPLE 100
[2016-08-04] MEDS: PANTOPRAZOLE SODIUM 40 MG VIAL IV PUSH SCH (14:26)
[2016-08-04] MEDS: SODIUM CHLORIDE 0.9% FLUSH 5 ML FLUSH IVF SCH ×2 (14:26→20:36)
[2016-08-04] MEDS: VANCOMYCIN 1,500 MG/NS 500 ML IV SCH ×2 (18:43)
[2016-08-04] MEDS: PRAMIPEXOLE DIHYDROCHLORIDE 0.25 MG TAB PO SCH (18:43)
[2016-08-04] MEDS: MICONAZOLE NITRATE 2% VAG CREAM 45 GM VAGINAL SCH (20:36)
[2016-08-04] MEDS: ZOLPIDEM TARTRATE 5 MG TAB PO PRN (23:23)
[2016-08-05] VITALS (7 sets, daily range): BP systolic 114–127; BP diastolic 53–61; PULSE 82–95; RESP 16–20; TEMP 97.5–99.6; O2SAT 93–98
[2016-08-05] MEDS: metroNIDAZOLE 500 MG INJ 100 ML IV SCH ×4 (00:51→20:17)
[2016-08-05] MEDS: ACETAMINOPHEN/HYDROcodone 325 MG/7.5 MG TAB PO PRN ×6 (00:51→21:58)
[2016-08-05] MEDS: MORPHINE SULFATE 4 MG/ML INJ IV PUSH PRN (02:35)
[2016-08-05] MEDS: CEFEPIME INJ 2,000 MG in SODIUM CHLORIDE 0.9% INJ 100 ML IV SCH ×3 (05:05→21:59)
[2016-08-05 07:23] LABS: HEMATOCRIT 31.5 % (35.0-46.0); MEAN CELL VOLUME 82.9 FL (80.0-100.0); MEAN CORPUSCULAR HEMOGLOBIN 27.4 PG (27.0-34.0); PLATELET COUNT 720 TH/MM3 (150-450); RED BLOOD COUNT 3.81 MIL/MM3 (4.00-5.30); RED CELL DISTRIBUTION WIDTH 16.2 % (11.6-17.2); WHITE BLOOD COUNT 12.6 TH/MM3 (4.0-11.0)
[2016-08-05 07:42] LABS: BICARBONATE 29.6 MEQ/L (21.0-32.0); CALCIUM-PROTEIN CORRECTED 8.8 MG/DL (8.5-10.1); MAGNESIUM 1.8 MG/DL (1.5-2.5); POTASSIUM 3.8 MEQ/L (3.5-5.1)
--- NOTE | 2016-08-05 07:52 | HHI.FPPN ---
Subjective Remarks Pt seen and examined this morning. No acute events overnight. Pt reports feeling well this morning. She denies chest pain, shortness of breath, leg pain. She has occasional abdominal pain that has been controlled with medication. She has been tolerating her oral diet. She felt nauseous after eating yesterday but denies any vomiting. Surgical incision on central abdomen is more open with significantly more drainage, currently packed and covered with dressing. (Sumaya Wheeler MD R2) Objective Vitals Vital Signs Date Time Temp Pulse Resp B/P Pulse Ox O2 Delivery O2 Flow Rate FiO2 08/05/16 05:07 Nasal Cannula 2.00 08/05/16 00:22 98.3 89 20 115/58 97 08/04/16 22:05 Nasal Cannula 2.00 08/04/16 20:18 98.1 52 18 115/52 96 08/04/16 16:00 97.1 95 16 112/57 94 08/04/16 13:45 90 21 08/04/16 12:00 96.0 86 18 129/60 92 08/04/16 08:30 Nasal Cannula 2.00 21 08/04/16 08:00 96.3 79 18 119/58 99 I/O 08/04/16 08/04/16 08/04/16 08/05/16 08/05/16 08/05/16 07:00 15:00 23:00 07:00 15:00 23:00 Intake Total 240 ml 2180 ml 1206 ml 1297 ml Output Total 450 ml 1570 ml 1600 ml 1030 ml Balance -210 ml 610 ml -394 ml 267 ml Intake Oral 240 ml 720 ml 480 ml 360 ml IV Total 1460 ml 726 ml 937 ml Output Urine Total 250 ml 1470 ml 800 ml 680 ml Stool Total 150 ml 100 ml 300 ml 100 ml Drainage Total 50 ml 500 ml 250 ml # Bowel Movements 0 (Sumaya Wheeler MD R2) Result Diagram: 08/05/1662108/05/16621 Objective Remarks GENERAL: NAD, lying in bed, appears uncomfortable SKIN: Warm and dry. Patient with ostomy in place over left lower quadrant, moderate amount of dark green/brown stool present. Improving erythema surrounding wound site. There is a 1' x 1' backwards L-shaped incision extending from her midline to her right lower quadrant held together by sutures. In the middle of the midline incision, 4cm area of wound dehiscence, packed and covered with dressing, increased amount of serosanguineous drainage. HEENT: Normocephalic. Atraumatic. EOMI. No scleral icterus. No injection or drainage. No nasal drainage. Dry mucous membranes. CARDIOVASCULAR: Regular rate and rhythm without murmurs, gallops, or rubs RESPIRATORY: Anterior and lateral lung ballard auscultated as pt movement limited due to pain, clear to auscultation. No accessory muscle use. GASTROINTESTINAL: Abdomen obese. See skin above. Patient reports that she is tender to palpation throughout her abdomen, especially in left lower quadrant. + bowel sounds. MUSCULOSKELETAL: 1+ bilateral lower extremity edema, significantly improved from prior exam NEURO: Normal speech. 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 Discharge Planning D/C pending clearance by general surgery. Time frame is unclear as patient is anticipated to return to the OR today. wdw Dr. Mckinney, Dr. Sebastian (Sumaya Wheeler MD R2) Attending Attestation Pt. examined and case discussed with resident physicians I have read the above note and agree with the assessment/plan as discussed with me I was involved in all medical decision making for this patient Fred Mckinney MD (Fred Mckinney MD) Problem List: (1) Abscess of abdominal wall Status: Acute Plan: Patient with significant abscess of abdominal wall and enterocutaneous fistula General Surgery Consulted, appreciate recommendations and interventions WBC count increased to 12.6, Wound on central abdomen currently with increased drainage POD day #7, status post incision and drainage and washout of left abdominal wall , with wound vac placement due to small bowel fistulae. POD #2 wound VAC change, debridement of abdominal wound -Pain control with morphine 2 mg IV q3h prn breakthrough, hold if SBP < 110 or DBP < 60, [place] one [id number] prn pain 610 -Blood cultures NGTD -Met sepsis criteria; tachycardic, tachypneic, with leukocytosis, Lactic acid 1.8 on admission -We'll consider infectious disease consult regarding possibility of long-term antibiotic use Broad Spectrum Antibiotics: - Vancomycin, pharm consult (07/28- ) - Cefepime 2gm IV q8h (07/28- ) - Flagyl 500 mg IV q6h (07/28- ) Imaging 07/28 - Abdomen/Pelvis CT: Diffuse and extensive subcutaneous emphysema around the abdominal wall from patient's right lateral abdominal wall across midline to left lateral abdominal wall. Fluid collection in anterior left abdominal wall suspicious for subcutaneous abscess. Nonspecific edema throughout subcutaneous tissues. No acute intra-abdominal or pelvic pathology. Given extent of erythema and edema of skin and subcutaneous abscess, we will cover with broad-spectrum antibiotics (2) Anemia Status: Acute Plan: - Hgb on admission 6.8, s/p 4 units on 07/28 - H&H 10.4 and 31.5 respectively this morning, improving - Continue to monitor - Iron panel significant for anemia of chronic disease - B12 and Folate both elevated - GI consulted, appreciate recommendations. - No indication of GI bleed at this time. If H&H continues to drop we'll consider EGD versus colonoscopy versus a bleeding scan - PPI: Protonix 40 mg IV daily - Transfuse as needed (3) Lower extremity edema Status: Acute Plan: Improving Patient with 1+ bilateral lower extremity edema on exam. -SCDs - 20 mg Lasix po daily -Will use caution with fluids due to the concern for possible fluid overload (4) Vaginal candidiasis Status: Acute Plan: Patient endorses vaginal discomfort, burning and itching, improving. -Continue Monistat 7 -Pt encouraged to keep vaginal area as dry as possible -Increased risk for recurrence due to antibiotic use and body habitus (5) Nutrition, metabolism, and development symptoms Status: Acute Plan: Fluids: LR IV at 100 ml per hour, consider decreasing as pt is better able to tolerate PO Electrolytes: Electrolytes within normal limits, continue to monitor and replete as necessary Nutrition: Regular diet DVT PPX: SCDs. Consider Lovenox if patient is not anticipated to return to the OR GI PPX: 40 mg Protonix IV daily (Sumaya Wheeler MD R2) Problem Qualifiers (1) Anemia: Qualified Code: D64.9 - Anemia, unspecified type Sumaya Wheeler MD R2 Aug 05, 2016 07:52 Fred Mckinney MD Aug 05, 2016 10:49
[2016-08-05] MEDS: FUROSEMIDE 20 MG TAB PO SCH (09:48)
[2016-08-05] MEDS: SODIUM CHLORIDE 0.9% FLUSH 5 ML FLUSH IVF SCH ×2 (09:49→20:17)
[2016-08-05] MEDS ORDERED: PHARMACY ORDERED LAB XX ONE (10:45)
[2016-08-05] MEDS: MICONAZOLE NITRATE 2% VAG CREAM 45 GM VAGINAL SCH (13:24)
[2016-08-05] MEDS: VANCOMYCIN 1,500 MG/NS 500 ML IV SCH ×2 (13:26)
[2016-08-05] MEDS: PANTOPRAZOLE SODIUM 40 MG VIAL IV PUSH SCH (16:51)
[2016-08-05] MEDS: LACTATED RINGER'S 1000 ML INJ 1,000 ML IV SCH ×2 (16:52→20:17)
[2016-08-05] MEDS: PRAMIPEXOLE DIHYDROCHLORIDE 0.25 MG TAB PO SCH (18:54)
--- NOTE | 2016-08-05 19:50 | HHI.PR ---
Subjective Subjective Notes tolerating diet, vac with good seal but wbc 12.5, increase erythema Objective Vitals/I&O Vital Signs Date Time Temp Pulse Resp B/P Pulse Ox O2 Delivery O2 Flow Rate FiO2 08/05/16 17:58 93 Nasal Cannula 2.00 08/05/16 16:00 99.6 92 16 123/58 08/04/16 13:45 21 Labs Laboratory Tests Test 08/05/16 08/05/16 06:22 15:00 White Blood Count 12.6 Red Blood Count 3.81 Hemoglobin 10.4 Hematocrit 31.5 Mean Corpuscular Volume 82.9 Mean Corpuscular Hemoglobin 27.4 Mean Corpuscular Hemoglobin 33.0 Concent Red Cell Distribution Width 16.2 Platelet Count 720 Mean Platelet Volume 6.7 Hematology Comments Sodium Level 142 Potassium Level 3.8 Chloride Level 106 Carbon Dioxide Level 29.6 Anion Gap 6 Blood Urea Nitrogen 6 Creatinine 0.42 Estimat Glomerular Filtration 151 Rate Random Glucose 101 Calcium Level 7.4 Protein Corrected Calcium 8.8 Phosphorus Level 2.6 Magnesium Level 1.8 Total Protein 4.7 Vancomycin Level Trough 11.6 Radiology Last Impressions Chest X-Ray 07/29/16 0000 Signed Impressions: Service Date/Time: Friday, July 29, 2016 09:32 - CONCLUSION: 1. Bibasilar atelectasis, right greater than left. 2. Compensated cardiomegaly. Fred Solis MD Abdomen/Pelvis CT 07/28/16 0735 Signed Impressions: Service Date/Time: Thursday, July 28, 2016 09:50 - CONCLUSION: 1. There is diffuse and extensive subcutaneous emphysema around the abdominal wall from patient's right lateral abdominal wall all the way across midline to the left lateral abdominal wall. 2. There appears to be of fluid collection in the anterior left abdominal wall suspicious for a subcutaneous abscess. There is nonspecific edema throughout the subcutaneous tissues of the abdominal wall. 3. No acute intra-abdominal/pelvic pathology. 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 Velez, will obtain supplies to possible change sooner -Obtain consents -reg diet -Pain control Problem Qualifiers (1) Subcutaneous abscess: Dilan Quinones MD Aug 05, 2016 19:49
[2016-08-05] MEDS: ZOLPIDEM TARTRATE 5 MG TAB PO PRN (21:58)
[2016-08-06] MEDS: VANCOMYCIN 1,500 MG/NS 500 ML IV SCH ×4 (03:38→22:47)
[2016-08-06] MEDS: metroNIDAZOLE 500 MG INJ 100 ML IV SCH ×4 (03:38→20:06)
[2016-08-06] MEDS: ACETAMINOPHEN/HYDROcodone 325 MG/7.5 MG TAB PO PRN ×3 (05:08→23:19)
[2016-08-06] MEDS: CEFEPIME INJ 2,000 MG in SODIUM CHLORIDE 0.9% INJ 100 ML IV SCH ×3 (05:08→22:46)
[2016-08-06 05:33] LABS: AUTOMATED NEUTROPHIL # 7.8 TH/MM3 (1.8-7.7); BASOPHIL % 0.3 % (0.0-2.0); EOSINOPHIL # 0.4 TH/MM3 (0-0.4); EOSINOPHIL % 4.1 % (0.0-4.0); HEMATOCRIT 31.7 % (35.0-46.0); HEMO FLAGS DIFF FINAL; LYMPH % 13.6 % (9.0-44.0); LYMPHOCYTE # 1.4 TH/MM3 (1.0-4.8); MEAN CELL VOLUME 84.9 FL (80.0-100.0); MEAN CORPUSCULAR HEMOGLOBIN 27.2 PG (27.0-34.0); MONO % 8.8 % (0.0-8.0); NEUT % 73.2 % (16.0-70.0); PLATELET COUNT 713 TH/MM3 (150-450); RED BLOOD COUNT 3.73 MIL/MM3 (4.00-5.30); RED CELL DISTRIBUTION WIDTH 16.4 % (11.6-17.2); WHITE BLOOD COUNT 10.7 TH/MM3 (4.0-11.0)
[2016-08-06 05:58] LABS: BICARBONATE 34.8 MEQ/L (21.0-32.0); CALCIUM-PROTEIN CORRECTED 9.4 MG/DL (8.5-10.1); POTASSIUM 3.5 MEQ/L (3.5-5.1)
[2016-08-06 08:00] VITALS: BP 128/66; PULSE 77; RESP 17; TEMP 97.7; O2SAT 99
[2016-08-06] MEDS: LACTATED RINGER'S 1000 ML INJ 1,000 ML IV SCH ×2 (08:00→13:01)
[2016-08-06] MEDS: SODIUM CHLORIDE 0.9% FLUSH 5 ML FLUSH IVF SCH ×2 (09:00→20:05)
[2016-08-06] MEDS: FUROSEMIDE 20 MG TAB PO SCH (09:15)
--- NOTE | 2016-08-06 09:18 | MP ---
cc: LANDRY VELEZ M.D. DATE OF SURGERY 08/03/2016 PREOPERATIVE DIAGNOSIS Small bowel fistula, subcutaneous abscess left lower abdomen. POSTOPERATIVE DIAGNOSIS Small bowel fistula, subcutaneous abscess left lower abdomen. ANESTHESIA Gen. SURGEON Landry Velez M.D. PROCEDURE 1. Removal of VAC dressing. With replacement of modified VAC dressing to exclude small bowel fistula 2. Debridement of subcutaneous tissue of defect in the left lower quadrant, removal of necrotic skin, deep subcutaneous tissue and fascia. This procedure was accomplished by Replacement of the VAC device with modification to exclude two small bowel fistula was done by placing two baby nipples bottle nipples over the fistula, gluing them to the granulation tissue, placing a stomal ring around the baby bottle nipples to seal them, then placing a maza sponge that was placed within occlusive dressing to exclude the fistula from the rest of the wound. The VAC dressing was applied with a good seal. An ostomy appliance was placed over the baby bottle nipples to have the enteric contents completely excluded from the wound. It is placed up to suction with a good seal. We then direct our attention to the midline wound. Old sutures removed. Skin that is necrotic is removed. The subcutaneous tissue is removed. This was done with sharp dissection. There is just an open area and about 5 cm which is then gently packed with wet to dry. The patient tolerated the procedure well and had no immediate postop complication. Landry Velez MD JDB/SSB /5:53 PM /9:11 AM TIFFANI
[2016-08-06] MEDS: PANTOPRAZOLE SODIUM 40 MG VIAL IV PUSH SCH (10:44)
[2016-08-06] MEDS ORDERED: HYDROmorphone HCL PF 1 MG/ML VIAL IV ONE ×2 (10:45→11:15)
--- NOTE | 2016-08-06 11:55 | HHI.PR ---
Subjective Subjective Notes I feel fine Objective Vitals/I&O Vital Signs Date Time Temp Pulse Resp B/P Pulse Ox O2 Delivery O2 Flow Rate FiO2 08/06/16 08:00 97.7 77 17 128/66 99 08/05/16 21:23 Nasal Cannula 2.00 08/04/16 13:45 21 Labs Laboratory Tests Test 08/05/16 08/06/16 15:00 04:47 Vancomycin Level Trough 11.6 White Blood Count 10.7 Red Blood Count 3.73 Hemoglobin 10.2 Hematocrit 31.7 Mean Corpuscular Volume 84.9 Mean Corpuscular Hemoglobin 27.2 Mean Corpuscular Hemoglobin 32.0 Concent Red Cell Distribution Width 16.4 Platelet Count 713 Mean Platelet Volume 6.4 Neutrophils (%) (Auto) 73.2 Lymphocytes (%) (Auto) 13.6 Monocytes (%) (Auto) 8.8 Eosinophils (%) (Auto) 4.1 Basophils (%) (Auto) 0.3 Neutrophils # (Auto) 7.8 Lymphocytes # (Auto) 1.4 Monocytes # (Auto) 0.9 Eosinophils # (Auto) 0.4 Basophils # (Auto) 0.0 CBC Comment DIFF FINAL Differential Comment Sodium Level 146 Potassium Level 3.5 Chloride Level 106 Carbon Dioxide Level 34.8 Anion Gap 5 Blood Urea Nitrogen 6 Creatinine 0.45 Estimat Glomerular Filtration 139 Rate Random Glucose 101 Calcium Level 7.9 Protein Corrected Calcium 9.4 Total Protein 4.7 Radiology Last Im Last Impressions Chest X-Ray 07/29/16 0000 Signed Impressions: Service Date/Time: Friday, July 29, 2016 09:32 - CONCLUSION: 1. Bibasilar atelectasis, right greater than left. 2. Compensated cardiomegaly. Fred Solis MD Abdomen/Pelvis CT 07/28/16 0735 Signed Impressions: Service Date/Time: Thursday, July 28, 2016 09:50 - CONCLUSION: 1. There is diffuse and extensive subcutaneous emphysema around the abdominal wall from patient's right lateral abdominal wall all the way across midline to the left lateral abdominal wall. 2. There appears to be of fluid collection in the anterior left abdominal wall suspicious for a subcutaneous abscess. There is nonspecific edema throughout the subcutaneous tissues of the abdominal wall. 3. No acute intra-abdominal/pelvic pathology. 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
[2016-08-06 12:00] VITALS: BP 125/59; PULSE 83; RESP 17; TEMP 97.7; O2SAT 96
[2016-08-06 12:06] VITALS: O2SAT 94
--- NOTE | 2016-08-06 14:50 | HHI.FPPN ---
Subjective Remarks No acute events overnight. Patient reports that she just had wound vacs changed/ placed on her left lower quadrant wound and midline abdominal incision dehiscence. Overnight, pulse rate 70s to 90s. Pulse ox ranged from 93-99% on 2 L nasal cannula. Otherwise, afebrile and vital signs stable. Patient reports that she feels out of it because she hasn't been eating. She also reports that the burning pain in her left lower quadrant is subsiding. She says she doesn't even notice the pain from the midline incision dehiscence. Objective Vitals Vital Signs Date Time Temp Pulse Resp B/P Pulse Ox O2 Delivery O2 Flow Rate FiO2 08/06/16 12:06 94 08/06/16 12:00 97.7 83 17 125/59 96 08/06/16 11:35 20 08/06/16 11:35 20 08/06/16 08:00 97.7 77 17 128/66 99 08/05/16 23:55 97.5 92 20 126/59 96 08/05/16 21:23 Nasal Cannula 2.00 08/05/16 21:18 Nasal Cannula 2.00 08/05/16 20:07 98.5 90 18 116/53 95 08/05/16 17:58 93 Nasal Cannula 2.00 08/05/16 16:00 99.6 92 16 123/58 94 I/O 08/05/16 08/05/16 08/05/16 08/06/16 08/06/16 08/06/16 07:00 15:00 23:00 07:00 15:00 23:00 Intake Total 1297 ml 840 ml 1853 ml 1655 ml 1108 ml Output Total 1030 ml 1375 ml 2635 ml 1375 ml 1525 ml Balance 267 ml -535 ml -782 ml 280 ml -417 ml Intake Oral 360 ml 840 ml 380 ml 280 ml 240 ml IV Total 937 ml 1473 ml 1375 ml 868 ml Output Urine Total 680 ml 1225 ml 2060 ml 1000 ml 1500 ml Stool Total 100 ml 150 ml 200 ml 300 ml Drainage Total 250 ml 375 ml 75 ml 25 ml # Bowel Movements 0 Result Diagram: 08/06/16 0447 08/06/16446 Objective Remarks GENERAL: NAD, lying in bed, appears uncomfortable SKIN: Warm and dry. Patient with ostomy in place over left lower quadrant, connected to her wound VAC. Improving erythema surrounding wound site. There is a 1' x 1' backwards L-shaped incision extending from her midline to her right lower quadrant held together by sutures. In the middle of the midline incision, 4cm area of wound dehiscence covered by black sponge and connected to Wound VAC. HEENT: Normocephalic. Atraumatic. EOMI. No scleral icterus. No injection or drainage. No nasal drainage. Dry mucous membranes. CARDIOVASCULAR: Regular rate and rhythm without murmurs, gallops, or rubs RESPIRATORY: Anterior and lateral lung ballard auscultated as pt movement limited due to pain, clear to auscultation. No accessory muscle use. GASTROINTESTINAL: Abdomen obese. See skin above. Patient reports that she is tender to palpation throughout her abdomen, especially in left lower quadrant. + bowel sounds. MUSCULOSKELETAL: 1+ bilateral lower extremity edema, significantly improved from prior exam NEURO: Normal speech. 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 Discharge Planning D/C pending clearance by general surgery. Time frame is unclear as patient is anticipated to return to the OR today. wdw Dr. Mckinney, Dr. Sebastian Problem List: (1) Abscess of abdominal wall Status: Acute Plan: Patient with significant abscess of abdominal wall and enterocutaneous fistula General Surgery Consulted, appreciate recommendations and interventions: Wound VAC changed today. POD #0 WBC count decreased to 10.7 POD day #8, status post incision and drainage and washout of left abdominal wall , with wound vac placement due to small bowel fistulae. POD #3 wound VAC change, debridement of abdominal wound -Pain control with morphine 2 mg IV q3h prn breakthrough, hold if SBP < 110 or DBP < 60, [place] one [id number] prn pain 610 -Blood cultures NGTD -Met sepsis criteria; tachycardic, tachypneic, with leukocytosis, Lactic acid 1.8 on admission -We'll consider infectious disease consult regarding possibility of long-term antibiotic use Broad Spectrum Antibiotics: - Vancomycin, pharm consult (07/28- ) - Cefepime 2gm IV q8h (07/28- ) - Flagyl 500 mg IV q6h (07/28- ) Imaging 07/28 - Abdomen/Pelvis CT: Diffuse and extensive subcutaneous emphysema around the abdominal wall from patient's right lateral abdominal wall across midline to left lateral abdominal wall. Fluid collection in anterior left abdominal wall suspicious for subcutaneous abscess. Nonspecific edema throughout subcutaneous tissues. No acute intra-abdominal or pelvic pathology. Given extent of erythema and edema of skin and subcutaneous abscess, we will cover with broad-spectrum antibiotics (2) Anemia Status: Acute Plan: - Hgb on admission 6.8, s/p 4 units on 07/28 - H&H 10.2 and 31.7 respectively this morning, improving - Continue to monitor - Iron panel significant for anemia of chronic disease - B12 and Folate both elevated - GI consulted, appreciate recommendations. - No indication of GI bleed at this time. If H&H continues to drop we'll consider EGD versus colonoscopy versus a bleeding scan - PPI: Protonix 40 mg IV daily - Transfuse as needed (3) Lower extremity edema Status: Acute Plan: Improving Patient with 1+ bilateral lower extremity edema on exam. -SCDs - 20 mg Lasix po daily -Will use caution with fluids due to the concern for possible fluid overload (4) Vaginal candidiasis Status: Acute Plan: Patient endorses vaginal discomfort, burning and itching, improving. -Continue Monistat 7 -Pt encouraged to keep vaginal area as dry as possible -Increased risk for recurrence due to antibiotic use and body habitus (5) Nutrition, metabolism, and development symptoms Status: Acute Plan: Fluids: LR IV at 100 ml per hour, consider decreasing as pt is better able to tolerate PO Electrolytes: Electrolytes within normal limits, continue to monitor and replete as necessary Nutrition: Regular diet DVT PPX: SCDs. Consider Lovenox if patient is not anticipated to return to the OR GI PPX: 40 mg Protonix IV daily Problem Qualifiers (1) Anemia: Qualified Code: D64.9 - Anemia, unspecified type Jovani Sebastian MD R1 Aug 06, 2016 14:50
[2016-08-06 16:00] VITALS: BP 123/58; PULSE 94; RESP 17; TEMP 98.9; O2SAT 92
[2016-08-06 20:00] VITALS: BP 126/55; PULSE 91; RESP 18; TEMP 99.4; O2SAT 92
[2016-08-06] MEDS: PRAMIPEXOLE DIHYDROCHLORIDE 0.25 MG TAB PO SCH (20:05)
[2016-08-06] MEDS: MICONAZOLE NITRATE 2% VAG CREAM 45 GM VAGINAL SCH (23:05)
[2016-08-06] MEDS: ZOLPIDEM TARTRATE 5 MG TAB PO PRN (23:19)
[2016-08-07] VITALS (7 sets, daily range): BP systolic 119–177; BP diastolic 58–64; PULSE 85–98; RESP 17–20; TEMP 97.9–98.9; O2SAT 93–98
[2016-08-07] MEDS: POTASSIUM BICARBONATE 25 MEQ EFFERVESCENT TAB PO SCH ×2 (02:12→09:00)
[2016-08-07] MEDS: metroNIDAZOLE 500 MG INJ 100 ML IV SCH ×4 (02:13→21:03)
[2016-08-07 04:59] LABS: HEMATOCRIT 30.8 % (35.0-46.0); MEAN CELL VOLUME 83.7 FL (80.0-100.0); MEAN CORPUSCULAR HEMOGLOBIN 26.9 PG (27.0-34.0); MEAN CORPUSCULAR HGB CONC 32.1 % (32.0-36.0); PLATELET COUNT 650 TH/MM3 (150-450); RED BLOOD COUNT 3.69 MIL/MM3 (4.00-5.30); RED CELL DISTRIBUTION WIDTH 16.2 % (11.6-17.2); REVIEW FLAG FINAL; WHITE BLOOD COUNT 12.4 TH/MM3 (4.0-11.0)
[2016-08-07 05:01] LABS: POTASSIUM 3.9 MEQ/L (3.5-5.1)
[2016-08-07] MEDS: CEFEPIME INJ 2,000 MG in SODIUM CHLORIDE 0.9% INJ 100 ML IV SCH ×2 (06:11→12:00)
[2016-08-07] MEDS: SODIUM CHLORIDE 0.9% FLUSH 5 ML FLUSH IVF SCH ×2 (09:00→21:03)
[2016-08-07] MEDS: FUROSEMIDE 20 MG TAB PO SCH (09:34)
--- NOTE | 2016-08-07 10:52 | HHI.FPPN ---
Subjective Remarks Pt seen and examined this morning. No acute events overnight. Pt denies chest pain, calf pain. She felt the need to wear nasal canula, but denies any breathing difficulties. Abdominal pain is well controlled. She endorsed the urge to have a bowel movement yesterday, but has not had a BM, -flatus. She has been tolerating her po diet. She anticipates working with PT later today. ( Sumaya Wheeler MD R2) Objective Vitals Vital Signs Date Time Temp Pulse Resp B/P Pulse Ox O2 Delivery O2 Flow Rate FiO2 08/07/16 08:07 95 21 08/07/16 08:00 97.9 92 17 119/60 93 08/07/16 00:00 98.9 98 18 123/64 98 08/06/16 20:00 99.4 91 18 126/55 92 08/06/16 19:50 Nasal Cannula 2.00 08/06/16 16:40 20 08/06/16 16:00 98.9 94 17 123/58 92 08/06/16 12:06 94 08/06/16 12:00 97.7 83 17 125/59 96 08/06/16 11:35 20 08/06/16 11:35 20 I/O 08/06/16 08/06/16 08/06/16 08/07/16 08/07/16 08/07/16 07:00 15:00 23:00 07:00 15:00 23:00 Intake Total 1655 ml 1108 ml 845 ml 1068 ml Output Total 1375 ml 1525 ml 4900 ml 550 ml Balance 280 ml -417 ml -4055 ml 518 ml Intake Oral 280 ml 240 ml 240 ml 120 ml IV Total 1375 ml 868 ml 605 ml 948 ml Output Urine Total 1000 ml 1500 ml 2900 ml 350 ml Stool Total 300 ml 1850 ml 100 ml Drainage Total 75 ml 25 ml 150 ml 100 ml # Bowel Movements 0 (Sumaya Wheeler MD R2) Result Diagram: 08/07/1633308/07/16333 Objective Remarks GENERAL: NAD, lying in bed, wearing nasal canula. SKIN: Warm and dry. Patient with ostomy bag covering repaired fistula, minimal green/black output appreciated Improving erythema surrounding wound site. There is a 1' x 1' backwards L-shaped incision extending from her midline to her right lower quadrant held together by sutures. In the middle of the midline incision, 4cm area of wound dehiscence covered by black sponge and connected to Wound VAC. HEENT: Normocephalic. Atraumatic. EOMI. No scleral icterus. No injection or drainage. No nasal drainage. Dry mucous membranes. CARDIOVASCULAR: Regular rate and rhythm without murmurs, gallops, or rubs RESPIRATORY: Anterior and lateral lung ballard auscultated as pt movement limited due to pain, clear to auscultation. No accessory muscle use. GASTROINTESTINAL: Abdomen obese. See skin above. Patient reports that she is tender to palpation throughout her abdomen, especially in left lower quadrant. + bowel sounds. MUSCULOSKELETAL: 1+ bilateral lower extremity edema, significantly improved from prior exam NEURO: Normal speech. 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 Discharge Planning D/C pending clearance by general surgery. Time frame is unclear. sdw Dr. Mckinney (Sumaya Wheeler MD R2) Attending Attestation Patient examined and case discussed with resident physician I have read the above note and agree with the assessment/plan as discussed with me I was involved in all medical decision making for this patient Fred Mckinney M.D. (Fred Mckinney MD) Problem List: (1) Abscess of abdominal wall Status: Acute Plan: Patient with significant abscess of abdominal wall and enterocutaneous fistula General Surgery Consulted, appreciate recommendations and interventions WBC count increased slightly to 12.4 Status post incision and drainage and washout of left abdominal wall, with wound vac placement due to small bowel fistulae on 07/28. Patient has underwent several wound vac changes. POD #1 s/p wound vac change Pt to have wound vac changed and dressing changed tomorrow per pt -Pain control with morphine 2 mg IV q3h prn breakthrough, hold if SBP < 110 or DBP < 60, [place] one [id number] prn pain 610 -Blood cultures NGTD -Met sepsis criteria; tachycardic, tachypneic, with leukocytosis, Lactic acid 1.8 on admission -We'll consider infectious disease consult regarding possibility of long-term antibiotic use Broad Spectrum Antibiotics: - Vancomycin, pharm consult (07/28- ) - Cefepime 2gm IV q8h (07/28- ) - Flagyl 500 mg IV q6h (07/28- ) Imaging 07/28 - Abdomen/Pelvis CT: Diffuse and extensive subcutaneous emphysema around the abdominal wall from patient's right lateral abdominal wall across midline to left lateral abdominal wall. Fluid collection in anterior left abdominal wall suspicious for subcutaneous abscess. Nonspecific edema throughout subcutaneous tissues. No acute intra-abdominal or pelvic pathology. Given extent of erythema and edema of skin and subcutaneous abscess, we will cover with broad-spectrum antibiotics (2) Anemia Status: Acute Plan: - Hgb on admission 6.8, s/p 4 units on 07/28 - H&H 9.9 and 30.8 respectively this morning - Continue to monitor - Iron panel significant for anemia of chronic disease - B12 and Folate both elevated - GI consulted, appreciate recommendations. - No indication of GI bleed at this time. If H&H continues to drop we'll consider EGD versus colonoscopy versus a bleeding scan - PPI: Protonix 40 mg IV daily - Transfuse as needed (3) Lower extremity edema Status: Acute Plan: Improving Patient with 1+ bilateral lower extremity edema on exam. -SCDs - 20 mg Lasix po daily, 25 meq potassium -Will use caution with fluids due to the concern for possible fluid overload (4) Vaginal candidiasis Status: Acute Plan: Patient endorses vaginal discomfort, burning and itching, improving. -Continue Monistat 7 -Pt encouraged to keep vaginal area as dry as possible -Increased risk for recurrence due to antibiotic use and body habitus (5) Nutrition, metabolism, and development symptoms Status: Acute Plan: Fluids: LR IV at 50 ml per hour, will continue to decrease as patient oral intake increases Electrolytes: Electrolytes within normal limits, continue to monitor and replete as necessary Nutrition: Regular diet DVT PPX: SCDs. Consider Lovenox if patient is not anticipated to return to the OR GI PPX: 40 mg Protonix IV daily, Annette-Colace (Sumaya Wheeler MD R2) Problem Qualifiers (1) Anemia: Qualified Code: D64.9 - Anemia, unspecified type Sumaya Wheeler MD R2 Aug 07, 2016 10:52 Fred Mckinney MD Aug 07, 2016 16:40
[2016-08-07] MEDS: DOCUSATE SODIUM 50 MG/SENNA 8.6 MG TAB PO SCH (11:00)
--- NOTE | 2016-08-07 11:57 | HHI.PR ---
Subjective Subjective Notes DAILY PROGRESS NOTE FOR SURGICAL ATTENDING, DR. LANDRY VELEZ Feels okay at bedside today Objective Vitals/I&O Vital Signs Date Time Temp Pulse Resp B/P Pulse Ox O2 Delivery O2 Flow Rate FiO2 08/07/16 10:00 96 Nasal Cannula 2.00 08/07/16 08:07 21 08/07/16 08:00 97.9 92 17 119/60 Labs Laboratory Tests Test 08/07/16 03:34 White Blood Count 12.4 Red Blood Count 3.69 Hemoglobin 9.9 Hematocrit 30.8 Mean Corpuscular Volume 83.7 Mean Corpuscular Hemoglobin 26.9 Mean Corpuscular Hemoglobin 32.1 Concent Red Cell Distribution Width 16.2 Platelet Count 650 Mean Platelet Volume 6.7 Sodium Level 143 Potassium Level 3.9 Chloride Level 103 Carbon Dioxide Level 36.0 Anion Gap 4 Blood Urea Nitrogen 6 Creatinine 0.50 Estimat Glomerular Filtration 123 Rate Random Glucose 102 Calcium Level 7.5 Radiology Last Im Last Impressions Chest X-Ray 07/29/16 0000 Signed Impressions: Service Date/Time: Friday, July 29, 2016 09:32 - CONCLUSION: 1. Bibasilar atelectasis, right greater than left. 2. Compensated cardiomegaly. Fred Solis MD Abdomen/Pelvis CT 07/28/16 0735 Signed Impressions: Service Date/Time: Thursday, July 28, 2016 09:50 - CONCLUSION: 1. There is diffuse and extensive subcutaneous emphysema around the abdominal wall from patient's right lateral abdominal wall all the way across midline to the left lateral abdominal wall. 2. There appears to be of fluid collection in the anterior left abdominal wall suspicious for a subcutaneous abscess. There is nonspecific edema throughout the subcutaneous tissues of the abdominal wall. 3. No acute intra-abdominal/pelvic pathology. 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
[2016-08-07] MEDS: PANTOPRAZOLE SODIUM 40 MG VIAL IV PUSH SCH (11:58)
--- NOTE | 2016-08-07 12:32 | MP ---
cc: LANDRY VELEZ M.D. DATE OF SURGERY 08/06/2016 PROCEDURE 1. Removal of VAC with replacement of VAC. 2. Debridement of midline wound with sharp scissors with placement of VAC. ANESTHESIA 2 mg of Dilaudid. SURGEON Dr. Velez C[employer] LO[employer]ER Dr. Joni GATES This is a 65-year-old female who unfortunately has a small bowel fistula to the left side of her abdomen. She had a midline that is necrotic as well. Plans were made for VAC dressing change at the bedside. PROCEDURE The patient is in Room 1706. We give her 2 mg of Dilaudid for pain control. The old VAC is removed. She has good granulation tissue. This is rinsed off and cleaned with 4x4s. We then see the two fistulae. We placed a fistula exclusion device over the more medial fistula and use a baby bottle nipple with the tip cut off to cover the smaller one that is lateral. These were sealed with the ostomy paste and ostomy ring. The VAC device is then placed over and around these two fistula exclusion devices, placed up to suction and have a good seal circumferentially. The midline wound is sharply debrided with sharp scissors of skin and subcutaneous and then this measures approximately 5 or 6 cm in VAC is applied to this wound as well. The patient remains in the room. I talk to the on phone to give him the update on his 's condition. Landry Velez MD JDB/SSB /11:52 AM /12:26 PM
[2016-08-07 12:43] LABS: CALCIUM-PROTEIN CORRECTED 8.9 MG/DL (8.5-10.1)
[2016-08-07] MEDS ORDERED: MAGNESIUM HYDROXIDE SUSP 30 ML CUP PO ONE (13:00)
[2016-08-07] MEDS: VANCOMYCIN 1,500 MG/NS 500 ML IV SCH ×2 (16:58)
[2016-08-07] MEDS: LACTATED RINGER'S 1000 ML INJ 1,000 ML IV SCH (17:04)
[2016-08-07] MEDS: MICONAZOLE NITRATE 2% VAG CREAM 45 GM VAGINAL SCH (21:00)
[2016-08-07] MEDS: PRAMIPEXOLE DIHYDROCHLORIDE 0.25 MG TAB PO SCH (21:02)
[2016-08-07] MEDS: ZOLPIDEM TARTRATE 5 MG TAB PO PRN (21:50)
[2016-08-08] VITALS: BP 129/59; PULSE 89; RESP 18; TEMP 98.1; O2SAT 92
[2016-08-08] MEDS: CEFEPIME INJ 2,000 MG in SODIUM CHLORIDE 0.9% INJ 100 ML IV SCH ×4 (00:37→21:13)
[2016-08-08] MEDS: metroNIDAZOLE 500 MG INJ 100 ML IV SCH ×4 (00:37→19:31)
[2016-08-08] MEDS: ACETAMINOPHEN/HYDROcodone 325 MG/7.5 MG TAB PO PRN ×4 (01:57→21:13)
[2016-08-08 06:39] LABS: BICARBONATE 32.5 MEQ/L (21.0-32.0); CALCIUM-PROTEIN CORRECTED 9.4 MG/DL (8.5-10.1)
[2016-08-08 06:41] LABS: AUTOMATED NEUTROPHIL # 7.4 TH/MM3 (1.8-7.7); BASOPHIL % 0.5 % (0.0-2.0); EOSINOPHIL # 0.4 TH/MM3 (0-0.4); EOSINOPHIL % 3.4 % (0.0-4.0); HEMATOCRIT 32.2 % (35.0-46.0); HEMO FLAGS DIFF FINAL; LYMPH % 14.9 % (9.0-44.0); LYMPHOCYTE # 1.5 TH/MM3 (1.0-4.8); MEAN CELL VOLUME 83.7 FL (80.0-100.0); MEAN CORPUSCULAR HEMOGLOBIN 27.2 PG (27.0-34.0); MEAN CORPUSCULAR HGB CONC 32.5 % (32.0-36.0); MONO % 9.1 % (0.0-8.0); NEUT % 72.1 % (16.0-70.0); PLATELET COUNT 544 TH/MM3 (150-450); RED BLOOD COUNT 3.85 MIL/MM3 (4.00-5.30); RED CELL DISTRIBUTION WIDTH 16.7 % (11.6-17.2); WHITE BLOOD COUNT 10.3 TH/MM3 (4.0-11.0)
[2016-08-08 08:00] VITALS: BP 119/69; PULSE 81; RESP 17; TEMP 98.3; O2SAT 93
[2016-08-08] MEDS: DOCUSATE SODIUM 50 MG/SENNA 8.6 MG TAB PO SCH (08:14)
[2016-08-08] MEDS: FUROSEMIDE 20 MG TAB PO SCH (08:14)
[2016-08-08] MEDS: POTASSIUM BICARBONATE 25 MEQ EFFERVESCENT TAB PO SCH (08:15)
[2016-08-08] MEDS: BISACODYL 10 MG SUPP RECTAL SCH (08:15)
[2016-08-08] MEDS: SODIUM CHLORIDE 0.9% FLUSH 5 ML FLUSH IVF SCH ×2 (08:15→19:32)
[2016-08-08] MEDS: LACTATED RINGER'S 1000 ML INJ 1,000 ML IV SCH (08:16)
--- NOTE | 2016-08-08 10:03 | HHI.FPPN ---
Subjective Remarks No acute events overnight. Blood pressure ranging from 119/1/77 over 50s to 60s. Pulse ox ranged from 92-96% on room air. Otherwise, afebrile and vital signs stable overnight. Pt reports decreasing abdominal pain. Plan for procedure involving wound VAC's today. Patient denies chest pain, shortness of breath, headache, nausea, vomiting, leg pain. Patient endorses good appetite, eating and drinking enough. Maybe going to bathroom too much. Per Saeed Menard, pt goes to bathroom after every time she eats. (Jovani Sebastian MD R1) Objective Vitals Vital Signs Date Time Temp Pulse Resp B/P Pulse Ox O2 Delivery O2 Flow Rate FiO2 08/08/16 08:00 98.3 81 17 119/69 93 08/08/16 00:00 98.1 89 18 129/59 92 08/07/16 20:00 98.8 89 20 124/58 93 08/07/16 18:10 21 08/07/16 16:00 98.6 85 17 120/58 96 08/07/16 12:00 97.9 85 17 177/61 95 08/07/16 10:00 96 Nasal Cannula 2.00 I/O 08/07/16 08/07/16 08/07/16 08/08/16 08/08/16 08/08/16 07:00 15:00 23:00 07:00 15:00 23:00 Intake Total 1068 ml 676 ml 892 ml 521 ml Output Total 550 ml 1550 ml 900 ml 1500 ml Balance 518 ml -874 ml -8 ml -979 ml Intake Oral 120 ml 240 ml 420 ml 120 ml IV Total 948 ml 436 ml 472 ml 401 ml Output Urine Total 350 ml 1400 ml 400 ml 1000 ml Stool Total 100 ml 450 ml 400 ml Drainage Total 100 ml 150 ml 50 ml 100 ml # Bowel Movements 1 1 (Jovani Sebastian MD R1) Result Diagram: 08/08/16 0545 08/08/16 0545 Imaging Last Impressions Chest X-Ray 07/29/16 0000 Signed Impressions: Service Date/Time: Friday, July 29, 2016 09:32 - CONCLUSION: 1. Bibasilar atelectasis, right greater than left. 2. Compensated cardiomegaly. Fred Solis MD Abdomen/Pelvis CT 07/28/16 0735 Signed Impressions: Service Date/Time: Thursday, July 28, 2016 09:50 - CONCLUSION: 1. There is diffuse and extensive subcutaneous emphysema around the abdominal wall from patient's right lateral abdominal wall all the way across midline to the left lateral abdominal wall. 2. There appears to be of fluid collection in the anterior left abdominal wall suspicious for a subcutaneous abscess. There is nonspecific edema throughout the subcutaneous tissues of the abdominal wall. 3. No acute intra-abdominal/pelvic pathology. Fred Solis MD Objective Remarks GENERAL: NAD, lying in bed, wearing nasal canula. SKIN: Warm and dry. Patient with ostomy bag covering repaired fistula, minimal green/black output appreciated with improving erythema surrounding wound site. There is a 1' x 1' backwards L-shaped incision extending from her midline to her right lower quadrant held together by sutures. In the middle of the midline incision, 4cm area of wound dehiscence covered by black sponge and connected to Wound VAC. HEENT: Normocephalic. Atraumatic. EOMI. No scleral icterus. No injection or drainage. No nasal drainage. Moist mucous membranes. CARDIOVASCULAR: Regular rate and rhythm without murmurs, gallops, or rubs RESPIRATORY: Anterior and lateral lung ballard auscultated as pt movement limited due to pain, clear to auscultation. No accessory muscle use. GASTROINTESTINAL: Abdomen obese. See skin above. Patient reports that she is tender to palpation throughout her abdomen, especially in left lower quadrant. + bowel sounds. MUSCULOSKELETAL: 1+ pitting edema to mid shay of bilateral lower extremities, significantly improved from prior exam. NEURO: Awake and alert. 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 performance test consultant grossly intact. 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 Discharge Planning D/C pending clearance by general surgery. Time frame is unclear. dw Dr. Mckinney (Jovani Sebastian MD R1) Attending Attestation Pt. 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 Patient has underwent several wound vac changes. POD #2 s/p wound vac change Pt to have wound vac changed and dressing changed again today -Pain control with morphine 2 mg IV q3h prn breakthrough, hold if SBP < 110 or DBP < 60, [place] one [id number] prn pain 610 -Blood cultures NGTD -Met sepsis criteria; tachycardic, tachypneic, with leukocytosis, Lactic acid 1.8 on admission -We'll consider infectious disease consult regarding possibility of long-term antibiotic use Broad Spectrum Antibiotics: - Vancomycin, pharm consult (07/28- ) - Cefepime 2gm IV q8h (07/28- ) - Flagyl 500 mg IV q6h (07/28- ) Imaging 07/28 - Abdomen/Pelvis CT: Diffuse and extensive subcutaneous emphysema around the abdominal wall from patient's right lateral abdominal wall across midline to left lateral abdominal wall. Fluid collection in anterior left abdominal wall suspicious for subcutaneous abscess. Nonspecific edema throughout subcutaneous tissues. No acute intra-abdominal or pelvic pathology. Given extent of erythema and edema of skin and subcutaneous abscess, we will cover with broad-spectrum antibiotics (2) Anemia Status: Acute Plan: - Hgb on admission 6.8, s/p 4 units on 07/28 - H&H 10.5 and 32.2 respectively this morning - Continue to monitor - Iron panel significant for anemia of chronic disease - B12 and Folate both elevated - GI consulted, appreciate recommendations. - No indication of GI bleed at this time. If H&H continues to drop we'll consider EGD versus colonoscopy versus a bleeding scan - PPI: Protonix 40 mg IV daily - Transfuse as needed (3) Lower extremity edema Status: Acute Plan: Improving Patient with 1+ pitting edema to mid shay bilaterally on lower extremities on exam, which represents continued improvement. - SCDs - 20 mg Lasix po daily, 25 meq potassium - Will use caution with fluids due to the concern for possible fluid overload. Discontinued IV fluids as patient is hydrating well by mouth (4) Vaginal candidiasis Status: Acute Plan: Patient endorses vaginal discomfort, burning and itching, improving. -Continue Monistat 7 -Pt encouraged to keep vaginal area as dry as possible -Increased risk for recurrence due to antibiotic use and body habitus (5) Nutrition, metabolism, and development symptoms Status: Acute Plan: Fluids: Discontinued IV fluids that. Electrolytes: Electrolytes within normal limits, continue to monitor and replete as necessary Nutrition: Regular diet DVT PPX: SCDs. Consider Lovenox if patient is not anticipated to return to the OR GI PPX: 40 mg Protonix IV daily, Annette-Colace (Jovani Sebastian MD R1) Problem Qualifiers (1) Anemia: Qualified Code: D64.9 - Anemia, unspecified type Jovani Sebastian MD R1 Aug 08, 2016 10:03 Fred Mckinney MD Aug 08, 2016 20:41
[2016-08-08 12:00] VITALS: BP 118/66; PULSE 92; RESP 17; TEMP 98.9; O2SAT 94
[2016-08-08] MEDS: VANCOMYCIN 1,500 MG/NS 500 ML IV SCH ×2 (12:10)
[2016-08-08] MEDS: PANTOPRAZOLE SODIUM 40 MG VIAL IV PUSH SCH (12:11)
[2016-08-08] MEDS ORDERED: HYDROmorphone HCL PF 1 MG/ML VIAL IV ONE (12:45)
[2016-08-08] MEDS ORDERED: HYDROmorphone HCL PF 1 MG/ML VIAL IV PRN (13:00)
[2016-08-08 16:00] VITALS: BP 112/67; PULSE 94; RESP 17; TEMP 96.7; O2SAT 93
--- NOTE | 2016-08-08 17:14 | HHI.PR ---
Subjective Subjective Notes DAILY PROGRESS NOTE FOR SURGICAL ATTENDING, DR. LANDRY VELEZ VAC dressing today Objective Vitals/I&O Vital Signs Date Time Temp Pulse Resp B/P Pulse Ox O2 Delivery O2 Flow Rate FiO2 08/08/16 16:00 96.7 94 17 112/67 93 08/08/16 09:05 Room Air 08/07/16 18:10 21 08/07/16 10:00 2.00 Labs Laboratory Tests Test 08/08/16 05:45 White Blood Count 10.3 Red Blood Count 3.85 Hemoglobin 10.5 Hematocrit 32.2 Mean Corpuscular Volume 83.7 Mean Corpuscular Hemoglobin 27.2 Mean Corpuscular Hemoglobin 32.5 Concent Red Cell Distribution Width 16.7 Platelet Count 544 Mean Platelet Volume 6.7 Neutrophils (%) (Auto) 72.1 Lymphocytes (%) (Auto) 14.9 Monocytes (%) (Auto) 9.1 Eosinophils (%) (Auto) 3.4 Basophils (%) (Auto) 0.5 Neutrophils # (Auto) 7.4 Lymphocytes # (Auto) 1.5 Monocytes # (Auto) 0.9 Eosinophils # (Auto) 0.4 Basophils # (Auto) 0.0 CBC Comment DIFF FINAL Differential Comment Sodium Level 143 Potassium Level 4.0 Chloride Level 103 Carbon Dioxide Level 32.5 Anion Gap 8 Blood Urea Nitrogen 5 Creatinine 0.38 Estimat Glomerular Filtration 169 Rate Random Glucose 88 Calcium Level 7.7 Protein Corrected Calcium 9.4 Total Protein 4.3 Radiology Last Im Last Impressions Chest X-Ray 07/29/16 0000 Signed Impressions: Service Date/Time: Friday, July 29, 2016 09:32 - CONCLUSION: 1. Bibasilar atelectasis, right greater than left. 2. Compensated cardiomegaly. Fred Solis MD Abdomen/Pelvis CT 07/28/16 0735 Signed Impressions: Service Date/Time: Thursday, July 28, 2016 09:50 - CONCLUSION: 1. There is diffuse and extensive subcutaneous emphysema around the abdominal wall from patient's right lateral abdominal wall all the way across midline to the left lateral abdominal wall. 2. There appears to be of fluid collection in the anterior left abdominal wall suspicious for a subcutaneous abscess. There is nonspecific edema throughout the subcutaneous tissues of the abdominal wall. 3. No acute intra-abdominal/pelvic pathology. 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
[2016-08-08] MEDS: PRAMIPEXOLE DIHYDROCHLORIDE 0.25 MG TAB PO SCH (19:31)
[2016-08-08] MEDS: MICONAZOLE NITRATE 2% VAG CREAM 45 GM VAGINAL SCH (19:33)
[2016-08-08 20:06] VITALS: BP 99/53; PULSE 92; RESP 18; TEMP 96.8; O2SAT 98
[2016-08-09 00:05] VITALS: BP 117/53; PULSE 92; RESP 18; TEMP 99.2; O2SAT 97
[2016-08-09] MEDS: ZOLPIDEM TARTRATE 5 MG TAB PO PRN ×2 (01:37→23:41)
[2016-08-09] MEDS: metroNIDAZOLE 500 MG INJ 100 ML IV SCH ×4 (01:38→19:34)
[2016-08-09] MEDS: ACETAMINOPHEN/HYDROcodone 325 MG/7.5 MG TAB PO PRN ×3 (03:47→17:42)
[2016-08-09] MEDS: VANCOMYCIN 1,500 MG/NS 500 ML IV SCH ×4 (03:47→23:46)
[2016-08-09 05:08] LABS: MEAN CELL VOLUME 84.5 FL (80.0-100.0); MEAN CORPUSCULAR HGB CONC 31.9 % (32.0-36.0); PLATELET COUNT 568 TH/MM3 (150-450); RED CELL DISTRIBUTION WIDTH 17.2 % (11.6-17.2); REVIEW FLAG FINAL; WHITE BLOOD COUNT 14.3 TH/MM3 (4.0-11.0)
[2016-08-09 05:26] LABS: BICARBONATE 30.2 MEQ/L (21.0-32.0); POTASSIUM 3.8 MEQ/L (3.5-5.1)
[2016-08-09] MEDS: CEFEPIME INJ 2,000 MG in SODIUM CHLORIDE 0.9% INJ 100 ML IV SCH ×3 (07:30→23:42)
[2016-08-09 08:00] VITALS: BP 113/57; PULSE 81; RESP 16; TEMP 98.7; O2SAT 93
--- NOTE | 2016-08-09 08:24 | HHI.FPPN ---
Subjective Remarks Yesterday, patient had modification of her wound VAC. She said it was excruciating, but she got through it. Except for some pulse in the 90s, some blood pressure as low as 99/53, patient was afebrile and vital signs stable overnight. Patient reports that her pain is now a 2 out of 10. However, patient complains of unpredictable twinges of pain that last for a couple of minutes and she describes as a 6 out of 10. Patient does not want more pain medication. Patient endorses having a bowel movement yesterday. She endorses good appetite. She denies any fever, chills, headache, chest pain, shortness of breath, nausea , vomiting, leg pain. (Jovani Sebastian MD R1) Objective Vitals Vital Signs Date Time Temp Pulse Resp B/P Pulse Ox O2 Delivery O2 Flow Rate FiO2 08/09/16 00:05 99.2 92 18 117/53 97 08/08/16 20:06 96.8 92 18 99/53 98 08/08/16 18:46 21 08/08/16 16:00 96.7 94 17 112/67 93 08/08/16 12:00 98.9 92 17 118/66 94 08/08/16 09:05 Room Air I/O 08/08/16 08/08/16 08/08/16 08/09/16 08/09/16 08/09/16 07:00 15:00 23:00 07:00 15:00 23:00 Intake Total 521 ml 866 ml 920 ml 1001 ml Output Total 1500 ml 1980 ml 1300 ml 1150 ml Balance -979 ml -1114 ml -380 ml -149 ml Intake Oral 120 ml 340 ml 480 ml 280 ml IV Total 401 ml 526 ml 440 ml 721 ml Output Urine Total 1000 ml 1900 ml 1000 ml 1000 ml Stool Total 400 ml Drainage Total 100 ml 80 ml 300 ml 150 ml # Bowel Movements 1 1 (Jovani Sebastian MD R1) Result Diagram: 08/09/1633308/09/16333 Objective Remarks GENERAL: NAD, lying in bed, wearing nasal canula. SKIN: Warm and dry. Patient with ostomy bag and wound VAC covering repaired fistula, with minimal yellow/green output from ostomy and yellow liquid leaking from dressing overlying wound VAC. Around this area of moisture/leak, there is a red, scaling rash in her left groin. However, around wound, there is decreasing/improving erythema surrounding wound site. There is a 1' x 1' backwards L-shaped incision extending from her midline to her right lower quadrant held together by sutures. In the middle of the midline incision, 4cm area of wound dehiscence covered by black sponge and connected to Wound VAC. decreased erythema today. HEENT: Normocephalic. Atraumatic. EOMI. No scleral icterus. No injection or drainage. No nasal drainage. Moist mucous membranes. CARDIOVASCULAR: Regular rate and rhythm without murmurs, gallops, or rubs RESPIRATORY: Anterior and lateral lung ballard auscultated as pt movement limited due to pain, clear to auscultation. No accessory muscle use. GASTROINTESTINAL: Abdomen obese. See skin above. Patient reports that she is tender to palpation throughout her abdomen, especially in left lower quadrant. + bowel sounds. MUSCULOSKELETAL: No pitting edema of bilateral lower extremities, significantly improved from prior exam. NEURO: Awake and alert. 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 skull chopper grossly intact. 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 Discharge Planning D/C pending clearance by general surgery. Time frame is unclear. wdw Dr. Mckinney (Jovani Sebastian MD R1) Attending Attestation Patient examined and case discussed with resident physicians I have read the above note and agree with the assessment/plan is discussed with me I was involved in all medical decision making for this patient Fred Mckinney M.D. 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 Platelets still elevated but downtrending. Status post incision and drainage and washout of left abdominal wall, with wound vac placement due to small bowel fistulae on 07/28. Patient has underwent several wound vac changes. POD #1 s/p last wound vac modification. Nurse instructed to notify Dr. Velez that transparent occlusive dressing is leaking yellow liquid. Wound care consulted. -Pain control with morphine 2 mg IV q3h prn breakthrough, hold if SBP < 110 or DBP < 60, [place] one [id number] prn pain 610 -Blood cultures NGTD -Met sepsis criteria; tachycardic, tachypneic, with leukocytosis, Lactic acid 1.8 on admission -We'll consider infectious disease consult regarding possibility of long-term antibiotic use Broad Spectrum Antibiotics: - Vancomycin, pharm consult (07/28- ) - Cefepime 2gm IV q8h (07/28- ) - Flagyl 500 mg IV q6h (07/28- ) Imaging 07/28 - Abdomen/Pelvis CT: Diffuse and extensive subcutaneous emphysema around the abdominal wall from patient's right lateral abdominal wall across midline to left lateral abdominal wall. Fluid collection in anterior left abdominal wall suspicious for subcutaneous abscess. Nonspecific edema throughout subcutaneous tissues. No acute intra-abdominal or pelvic pathology. Given extent of erythema and edema of skin and subcutaneous abscess, we will cover with broad-spectrum antibiotics (2) Anemia Status: Acute Plan: - Hgb on admission 6.8, s/p 4 units on 07/28 - H&H 10.5 and 33.0 respectively this morning - Continue to monitor - Iron panel significant for anemia of chronic disease - B12 and Folate both elevated - GI consulted, appreciate recommendations. - No indication of GI bleed at this time. If H&H continues to drop we'll consider EGD versus colonoscopy versus a bleeding scan - PPI: Protonix 40 mg IV daily - Transfuse as needed (3) Vaginal candidiasis Status: Acute Plan: Patient endorses vaginal discomfort, burning and itching, improving. -Continue Monistat 7 -Pt encouraged to keep vaginal area as dry as possible -Increased risk for recurrence due to antibiotic use and body habitus (4) Skin rash Status: Acute Plan: POD #1 s/p last wound vac modification. Nurse instructed to notify Dr. Velez that transparent occlusive dressing is leaking yellow liquid. Wound care consulted. (5) Lower extremity edema Status: Resolved Plan: Resolved Patient with no pitting edema of bilateral lower extremities on exam, which represents continued improvement. - SCDs - 20 mg Lasix po daily, 25 meq potassium - Will use caution with fluids due to the concern for possible fluid overload. Discontinued IV fluids as patient is hydrating well by mouth (6) Nutrition, metabolism, and development symptoms Status: Acute Plan: Fluids: Discontinued IV fluids Electrolytes: Electrolytes within normal limits, continue to monitor and replete as necessary Nutrition: Regular diet DVT PPX: SCDs. Consider Lovenox; currently held for chronic wound s/p modification/dressing change GI PPX: 40 mg Protonix IV daily, Annette-Colace (Jovani Sebastian MD R1) Problem Qualifiers (1) Anemia: Qualified Code: D64.9 - Anemia, unspecified type Jovani Sebastian MD R1 Aug 09, 2016 08:24 Fred Mckinney MD Aug 09, 2016 11:31
[2016-08-09] MEDS: BISACODYL 10 MG SUPP RECTAL SCH (09:00)
[2016-08-09] MEDS: POTASSIUM BICARBONATE 25 MEQ EFFERVESCENT TAB PO SCH (09:00)
[2016-08-09] MEDS: DOCUSATE SODIUM 50 MG/SENNA 8.6 MG TAB PO SCH (11:00)
[2016-08-09] MEDS: FUROSEMIDE 20 MG TAB PO SCH (11:00)
[2016-08-09] MEDS: SODIUM CHLORIDE 0.9% FLUSH 5 ML FLUSH IVF SCH ×2 (11:01→19:34)
[2016-08-09] MEDS: PANTOPRAZOLE SODIUM 40 MG VIAL IV PUSH SCH (11:06)
[2016-08-09 12:00] VITALS: BP 110/57; PULSE 94; RESP 17; TEMP 99.9; O2SAT 98
[2016-08-09 16:00] VITALS: BP 101/48; PULSE 95; RESP 16; TEMP 99.5; O2SAT 98
--- NOTE | 2016-08-09 16:52 | HHI.PR ---
Subjective Subjective Notes DAILY PROGRESS NOTE FOR SURGICAL ATTENDING, DR. LANDRY VELEZ At a bowel movement Got out of bed today VAC dressing intact Objective Vitals/I&O Vital Signs Date Time Temp Pulse Resp B/P Pulse Ox O2 Delivery O2 Flow Rate FiO2 08/09/16 16:00 99.5 95 16 101/48 98 08/08/16 18:46 21 08/08/16 09:05 Room Air 08/07/16 10:00 2.00 Labs Laboratory Tests Test 08/09/16 03:34 White Blood Count 14.3 Red Blood Count 3.90 Hemoglobin 10.5 Hematocrit 33.0 Mean Corpuscular Volume 84.5 Mean Corpuscular Hemoglobin 27.0 Mean Corpuscular Hemoglobin 31.9 Concent Red Cell Distribution Width 17.2 Platelet Count 568 Mean Platelet Volume 7.0 Sodium Level 140 Potassium Level 3.8 Chloride Level 101 Carbon Dioxide Level 30.2 Anion Gap 9 Blood Urea Nitrogen 8 Creatinine 0.36 Estimat Glomerular Filtration 180 Rate Random Glucose 105 Calcium Level 7.9 Protein Corrected Calcium 9.0 Total Protein 5.2 Radiology Narrative Exam VAC dressing intact Discussed with Jane VAC therapy nurse A/P Problem List: (1) Enterocutaneous fistula (2) Subcutaneous abscess (3) Abscess of abdominal wall Assessment and Plan 65-year-old female who recently had exploration in [place] with 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
[2016-08-09] MEDS: PRAMIPEXOLE DIHYDROCHLORIDE 0.25 MG TAB PO SCH (19:33)
[2016-08-09 20:00] VITALS: BP 114/53; PULSE 99; RESP 20; TEMP 98.7; O2SAT 94
[2016-08-10] VITALS: BP 96/47; PULSE 95; RESP 20; TEMP 98.4; O2SAT 94
[2016-08-10] MEDS: ACETAMINOPHEN/HYDROcodone 325 MG/7.5 MG TAB PO PRN ×3 (03:16→18:21)
[2016-08-10] MEDS: metroNIDAZOLE 500 MG INJ 100 ML IV SCH ×4 (03:17→21:00)
[2016-08-10 04:00] VITALS: BP 101/49; PULSE 98; RESP 20; TEMP 98.8; O2SAT 96
[2016-08-10 05:23] LABS: AUTOMATED NEUTROPHIL # 7.6 TH/MM3 (1.8-7.7); BASOPHIL # 0.1 TH/MM3 (0-0.2); BASOPHIL % 0.5 % (0.0-2.0); EOSINOPHIL # 0.3 TH/MM3 (0-0.4); EOSINOPHIL % 3.1 % (0.0-4.0); HEMO FLAGS DIFF FINAL; LYMPH % 13.9 % (9.0-44.0); LYMPHOCYTE # 1.5 TH/MM3 (1.0-4.8); MEAN CELL VOLUME 83.5 FL (80.0-100.0); MEAN CORPUSCULAR HEMOGLOBIN 27.1 PG (27.0-34.0); MEAN CORPUSCULAR HGB CONC 32.5 % (32.0-36.0); MONO % 11.1 % (0.0-8.0); NEUT % 71.4 % (16.0-70.0); PLATELET COUNT 564 TH/MM3 (150-450); RED BLOOD COUNT 3.83 MIL/MM3 (4.00-5.30); WHITE BLOOD COUNT 10.7 TH/MM3 (4.0-11.0)
[2016-08-10] MEDS: CEFEPIME INJ 2,000 MG in SODIUM CHLORIDE 0.9% INJ 100 ML IV SCH ×3 (05:35→22:10)
[2016-08-10 05:49] LABS: BICARBONATE 28.9 MEQ/L (21.0-32.0); POTASSIUM 3.8 MEQ/L (3.5-5.1)
[2016-08-10 08:00] VITALS: BP 113/61; PULSE 90; RESP 17; TEMP 98.3; O2SAT 96
[2016-08-10] MEDS: BISACODYL 10 MG SUPP RECTAL SCH (09:00)
[2016-08-10] MEDS: POTASSIUM BICARBONATE 25 MEQ EFFERVESCENT TAB PO SCH (09:00)
[2016-08-10] MEDS: SODIUM CHLORIDE 0.9% FLUSH 5 ML FLUSH IVF SCH ×2 (10:38→21:00)
[2016-08-10] MEDS: FUROSEMIDE 20 MG TAB PO SCH (10:39)
[2016-08-10] MEDS: DOCUSATE SODIUM 50 MG/SENNA 8.6 MG TAB PO SCH (10:39)
[2016-08-10] MEDS: PANTOPRAZOLE SODIUM 40 MG VIAL IV PUSH SCH (10:39)
[2016-08-10 12:00] VITALS: BP 100/46; PULSE 90; RESP 17; TEMP 98.8; O2SAT 95
[2016-08-10] MEDS ORDERED: HYDROmorphone HCL PF 1 MG/ML VIAL IV PUSH ONE ×2 (12:45)
--- NOTE | 2016-08-10 15:00 | HHI.FPPN ---
Subjective Remarks No acute events overnight. Afebrile overnight, pulse in the 90s, blood pressure ranged from 96-114/40s to 50s. Patient complaining of increased left lower quadrant pain today. Her wound VAC is still leaking yellow liquid fecal matter, and her skin is getting irritated. Wound care consult and general surgery consult planning to see patient today. She is currently denying any fever, chills, nausea, vomiting, chest pain, shortness of breath, diarrhea. (Jovani Sebastian MD R1) Objective Vitals Vital Signs Date Time Temp Pulse Resp B/P Pulse Ox O2 Delivery O2 Flow Rate FiO2 08/10/16 12:00 98.8 90 17 100/46 95 08/10/16 08:00 98.3 90 17 113/61 96 08/10/16 04:00 98.8 98 20 101/49 96 08/10/16 00:00 98.4 95 20 96/47 94 08/09/16 20:00 98.7 99 20 114/53 94 08/09/16 16:00 99.5 95 16 101/48 98 I/O 08/09/16 08/09/16 08/09/16 08/10/16 08/10/16 08/10/16 07:00 15:00 23:00 07:00 15:00 23:00 Intake Total 1001 ml 998 ml 115 ml 651 ml Output Total 1150 ml 1750 ml 0 ml 1050 ml Balance -149 ml -752 ml 115 ml -399 ml Intake Oral 280 ml 420 ml 240 ml IV Total 721 ml 578 ml 115 ml 411 ml Output Urine Total 1000 ml 1650 ml 1000 ml Drainage Total 150 ml 100 ml 0 ml 50 ml # Bowel Movements 1 1 (Jovani Sebastian MD R1) Result Diagram: 08/10/16 0339 08/10/16 0339 Imaging Last Impressions Chest X-Ray 07/29/16 0000 Signed Impressions: Service Date/Time: Friday, July 29, 2016 09:32 - CONCLUSION: 1. Bibasilar atelectasis, right greater than left. 2. Compensated cardiomegaly. Fred Solis MD Abdomen/Pelvis CT 07/28/16 0735 Signed Impressions: Service Date/Time: Thursday, July 28, 2016 09:50 - CONCLUSION: 1. There is diffuse and extensive subcutaneous emphysema around the abdominal wall from patient's right lateral abdominal wall all the way across midline to the left lateral abdominal wall. 2. There appears to be of fluid collection in the anterior left abdominal wall suspicious for a subcutaneous abscess. There is nonspecific edema throughout the subcutaneous tissues of the abdominal wall. 3. No acute intra-abdominal/pelvic pathology. Fred Solis MD Objective Remarks GENERAL: NAD, lying in bed, appears uncomfortable but in no acute distress SKIN: Warm and dry. Patient with ostomy bag and wound VAC covering repaired fistula, with minimal yellow/green output from ostomy and yellow liquid leaking from dressing overlying wound VAC. Around this area of moisture/leak, on the lateral aspect of her abdomen, there is warmth, tenderness, erythema, irritated skin. However, around the medial aspect of the wound, there is decreasing/ improving erythema surrounding wound site. There is a 1' x 1' backwards L- shaped incision extending from her midline to her right lower quadrant held together by sutures. In the middle of the midline incision, area of wound dehiscence covered by black sponge and connected to Wound VAC with decreased erythema today. HEENT: Normocephalic. Atraumatic. EOMI. No scleral icterus. No injection or drainage. No nasal drainage. Moist mucous membranes. CARDIOVASCULAR: Regular rate and rhythm without murmurs, gallops, or rubs RESPIRATORY: Anterior and lateral lung ballard auscultated as pt movement limited due to pain, clear to auscultation. No accessory muscle use. GASTROINTESTINAL: Abdomen obese. See skin above. Patient reports that she is tender to palpation throughout her abdomen, especially in left lower quadrant. + bowel sounds. MUSCULOSKELETAL: No pitting edema of bilateral lower extremities. NEURO: Awake and alert. 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 Discharge Planning D/C pending clearance by general surgery. Time frame is unclear. raul Mckinney (Jovani Sebastian MD R1) Attending Attestation Pt. 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 Platelets still elevated but downtrending. Status post incision and drainage and washout of left abdominal wall, with wound vac placement due to small bowel fistulae on 07/28. Patient has underwent several wound vac changes. POD #2 s/p last wound vac modification. Nurse instructed to notify Dr. Velez that transparent occlusive dressing is leaking yellow liquid. Wound care consulted. Both consults plan to see patient today. -Pain control with morphine 2 mg IV q3h prn breakthrough, hold if SBP < 110 or DBP < 60, [place] one [id number] prn pain 610 -Blood cultures NGTD -Met sepsis criteria; tachycardic, tachypneic, with leukocytosis, Lactic acid 1.8 on admission -We'll consider infectious disease consult regarding possibility of long-term antibiotic use Broad Spectrum Antibiotics: - Vancomycin, pharm consult (07/28- ) - Cefepime 2gm IV q8h (07/28- ) - Flagyl 500 mg IV q6h (07/28- ) Imaging 07/28 - Abdomen/Pelvis CT: Diffuse and extensive subcutaneous emphysema around the abdominal wall from patient's right lateral abdominal wall across midline to left lateral abdominal wall. Fluid collection in anterior left abdominal wall suspicious for subcutaneous abscess. Nonspecific edema throughout subcutaneous tissues. No acute intra-abdominal or pelvic pathology. Given extent of erythema and edema of skin and subcutaneous abscess, we will cover with broad-spectrum antibiotics (2) Anemia Status: Acute Plan: - Hgb on admission 6.8, s/p 4 units on 07/28 - H&H 10.4 and 32.0 respectively this morning - Continue to monitor - Iron panel significant for anemia of chronic disease - B12 and Folate both elevated - GI consulted, appreciate recommendations. - No indication of GI bleed at this time. If H&H drops we'll consider EGD versus colonoscopy versus a bleeding scan - PPI: Protonix 40 mg IV daily - Transfuse as needed (3) Skin rash Status: Acute Plan: POD #2 s/p last wound vac modification. Nurse instructed to notify Dr. Velez that transparent occlusive dressing is leaking yellow liquid. Wound care consulted. Both consults plan to see patient today. (4) Lower extremity edema Status: Resolved Plan: Resolved Patient with no pitting edema of bilateral lower extremities on exam. - SCDs - 20 mg Lasix po daily, 25 meq potassium - Will use caution with fluids due to the concern for possible fluid overload. Discontinued IV fluids as patient is hydrating well by mouth (5) Nutrition, metabolism, and development symptoms Status: Acute Plan: Fluids: Discontinued IV fluids Electrolytes: Electrolytes within normal limits, continue to monitor and replete as necessary Nutrition: Regular diet DVT PPX: SCDs. Consider Lovenox; currently held for chronic wound s/p modification/dressing change GI PPX: 40 mg Protonix IV daily, Annette-Colace (6) Vaginal candidiasis Status: Resolved Plan: Patient endorses vaginal discomfort, burning and itching, improving. -Discontinue Monistat 7 -Pt encouraged to keep vaginal area as dry as possible -Increased risk for recurrence due to antibiotic use and body habitus (Jovani Sebastian MD R1) Problem Qualifiers (1) Anemia: Qualified Code: D64.9 - Anemia, unspecified type Jovani Sebastian MD R1 Aug 10, 2016 15:00 Fred Mckinney MD Aug 10, 2016 19:20
[2016-08-10 16:00] VITALS: BP 113/56; PULSE 107; RESP 18; TEMP 99.2; O2SAT 93
[2016-08-10] MEDS: VANCOMYCIN 1,500 MG/NS 500 ML IV SCH ×2 (18:18)
[2016-08-10 20:00] VITALS: BP 121/59; PULSE 92; RESP 18; TEMP 98.9; O2SAT 96
[2016-08-10] MEDS: PRAMIPEXOLE DIHYDROCHLORIDE 0.25 MG TAB PO SCH (20:10)
[2016-08-10] MEDS: ZOLPIDEM TARTRATE 5 MG TAB PO PRN (23:04)
[2016-08-11] VITALS: BP 101/47; PULSE 89; RESP 20; TEMP 98; O2SAT 94
[2016-08-11] MEDS: metroNIDAZOLE 500 MG INJ 100 ML IV SCH ×4 (02:00→21:38)
[2016-08-11] MEDS: ACETAMINOPHEN/HYDROcodone 325 MG/7.5 MG TAB PO PRN ×3 (04:11→21:43)
[2016-08-11] MEDS: CEFEPIME INJ 2,000 MG in SODIUM CHLORIDE 0.9% INJ 100 ML IV SCH ×3 (05:27→21:37)
[2016-08-11 08:00] VITALS: BP 110/51; PULSE 92; RESP 17; TEMP 99.1; O2SAT 97
[2016-08-11] MEDS: DOCUSATE SODIUM 50 MG/SENNA 8.6 MG TAB PO SCH (08:13)
[2016-08-11] MEDS: FUROSEMIDE 20 MG TAB PO SCH (08:13)
[2016-08-11] MEDS: BISACODYL 10 MG SUPP RECTAL SCH (08:14)
[2016-08-11] MEDS: POTASSIUM BICARBONATE 25 MEQ EFFERVESCENT TAB PO SCH (08:14)
[2016-08-11] MEDS: SODIUM CHLORIDE 0.9% FLUSH 5 ML FLUSH IVF SCH ×2 (08:14→21:38)
--- NOTE | 2016-08-11 10:35 | HHI.FPPN ---
Subjective Remarks No acute events overnight but pt her IV access became painful. AFVSS. 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 Pt reports that her LLQ wound Vac dressing is leaking again. There is a towel in place on her left flank and under her LLQ pannus that is absorbing yellow-brown liquid. She reports that wound care plans to come see her again today. She denies any fever, chills, nausea, vomiting, chest pain, abdominal pain that is deep to her skin, LE swelling or pain, pelvic pain. She reports that she has been requesting stool softeners. Objective Vitals Vital Signs Date Time Temp Pulse Resp B/P Pulse Ox O2 Delivery O2 Flow Rate FiO2 08/11/16 08:00 99.1 92 17 110/51 97 08/11/16 00:00 98.0 89 20 101/47 94 08/10/16 20:00 98.9 92 18 121/59 96 08/10/16 16:00 99.2 107 18 113/56 93 08/10/16 12:00 98.8 90 17 100/46 95 I/O 08/10/16 08/10/16 08/10/16 08/11/16 08/11/16 08/11/16 07:00 15:00 23:00 07:00 15:00 23:00 Intake Total 651 ml 440 ml 940 ml 120 ml Output Total 1050 ml 1800 ml 1200 ml 450 ml Balance -399 ml -1360 ml -260 ml -330 ml Intake Oral 240 ml 240 ml 240 ml 120 ml IV Total 411 ml 200 ml 700 ml Output Urine Total 1000 ml 1800 ml 800 ml 450 ml Drainage Total 50 ml 400 ml # Bowel Movements 1 0 0 0 Result Diagram: 08/10/16 0339 08/10/16 0339 Imaging Last Impressions Chest X-Ray 07/29/16 0000 Signed Impressions: Service Date/Time: Friday, July 29, 2016 09:32 - CONCLUSION: 1. Bibasilar atelectasis, right greater than left. 2. Compensated cardiomegaly. Fred Solis MD Abdomen/Pelvis CT 07/28/16 0735 Signed Impressions: Service Date/Time: Thursday, July 28, 2016 09:50 - CONCLUSION: 1. There is diffuse and extensive subcutaneous emphysema around the abdominal wall from patient's right lateral abdominal wall all the way across midline to the left lateral abdominal wall. 2. There appears to be of fluid collection in the anterior left abdominal wall suspicious for a subcutaneous abscess. There is nonspecific edema throughout the subcutaneous tissues of the abdominal wall. 3. No acute intra-abdominal/pelvic pathology. Fred Solis MD Objective Remarks GENERAL: NAD, lying in bed, appears uncomfortable but in no acute distress SKIN: Warm and dry. Patient with ostomy bag and wound VAC covering repaired fistula, with thick yellow output from ostomy and yellow liquid leaking from dressing overlying wound VAC. Around this area of moisture/leak, on the lateral aspect of her abdomen and inferior aspect of her pannus, there is warmth, erythema, irritated skin, covered by a towel under her LLQ pannus that is absorbing yellow-brown liquid. However, around the medial aspect of the wound, there is decreasing/improving erythema surrounding wound site. There is a 1' x 1 ' backwards L-shaped incision extending from her midline to her right lower quadrant held together by sutures. In the middle of the midline incision, area of wound dehiscence with surrounding mild erythema covered by black sponge and connected to Wound VAC. HEENT: Normocephalic. Atraumatic. EOMI. No scleral icterus. No injection or drainage. No nasal drainage. Moist mucous membranes. CARDIOVASCULAR: Regular rate and rhythm without murmurs, gallops, or rubs RESPIRATORY: Anterior and lateral lung ballard auscultated as pt movement limited due to pain, clear to auscultation. No accessory muscle use. GASTROINTESTINAL: Abdomen obese. See skin above. Patient reports that she is tender to palpation around the left lower quadrant wound. + bowel sounds. MUSCULOSKELETAL: No pitting edema of bilateral lower extremities. NEURO: Awake and alert. 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 right of way worker grossly intact. 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 Discharge Planning D/C pending clearance by general surgery. Time frame is unclear. wdw Dr. 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 Platelets still elevated but downtrending. Status post incision and drainage and washout of left abdominal wall, with wound vac placement due to small bowel fistulae on 07/28. Patient has underwent several wound vac changes. POD #1 s/p last wound vac modification. Nurse instructed to notify wound care team that transparent occlusive dressing is leaking yellow liquid. Wound care team consulted and plans to see patient today. -Pain control with morphine 2 mg IV q3h prn breakthrough, hold if SBP < 110 or DBP < 60, [place] one [id number] prn pain 610 -Blood cultures NGTD -Met sepsis criteria; tachycardic, tachypneic, with leukocytosis, Lactic acid 1.8 on admission -We'll consider infectious disease consult regarding possibility of long-term antibiotic use Broad Spectrum Antibiotics: - Vancomycin, pharm consult (07/28- ) - Cefepime 2gm IV q8h (07/28- ) - Flagyl 500 mg IV q6h (07/28- ) Imaging 07/28 - Abdomen/Pelvis CT: Diffuse and extensive subcutaneous emphysema around the abdominal wall from patient's right lateral abdominal wall across midline to left lateral abdominal wall. Fluid collection in anterior left abdominal wall suspicious for subcutaneous abscess. Nonspecific edema throughout subcutaneous tissues. No acute intra-abdominal or pelvic pathology. (2) Skin rash Status: Acute Plan: POD #1 s/p last wound vac modification. Nurse instructed to notify wound care team that transparent occlusive dressing is leaking yellow liquid. Wound care team consulted and plans to see patient today. (3) Anemia Status: Acute Plan: - Hgb on admission 6.8, s/p 4 units on 07/28 - H&H 10.6 and 32.6 respectively on 08/11/16 - Continue to monitor - Iron panel significant for anemia of chronic disease - B12 and Folate both elevated - GI consulted, appreciate recommendations. - No indication of GI bleed at this time. If H&H drops we'll consider EGD versus colonoscopy versus a bleeding scan - PPI: Protonix 40 mg IV daily - Transfuse as needed (4) Lower extremity edema Status: Resolved Plan: Resolved Patient with no pitting edema of bilateral lower extremities on exam. - SCDs - 20 mg Lasix po daily, 25 meq potassium - Will use caution with fluids due to the concern for possible fluid overload. Discontinued IV fluids as patient is hydrating well by mouth (5) Nutrition, metabolism, and development symptoms Status: Acute Plan: Fluids: Discontinued IV fluids Electrolytes: Electrolytes within normal limits, continue to monitor and replete as necessary Nutrition: Regular diet DVT PPX: SCDs. Consider Lovenox; currently held for chronic wound s/p modification/dressing change GI PPX: 40 mg Protonix IV daily, Annette-Colace Problem Qualifiers (1) Anemia: Qualified Code: D64.9 - Anemia, unspecified type Jovani Sebastian MD R1 Aug 11, 2016 10:35
[2016-08-11] MEDS ORDERED: PHARMACY ORDERED LAB XX ONE (10:45)
[2016-08-11 12:00] VITALS: BP 110/60; PULSE 94; RESP 17; TEMP 99.4; O2SAT 96
[2016-08-11] MEDS: VANCOMYCIN 1,500 MG/NS 500 ML IV SCH ×2 (12:08)
[2016-08-11] MEDS: PANTOPRAZOLE SODIUM 40 MG VIAL IV PUSH SCH (12:08)
[2016-08-11 12:20] LABS: AUTOMATED NEUTROPHIL # 8.5 TH/MM3 (1.8-7.7); BASOPHIL # 0.1 TH/MM3 (0-0.2); BASOPHIL % 0.5 % (0.0-2.0); EOSINOPHIL # 0.5 TH/MM3 (0-0.4); EOSINOPHIL % 3.8 % (0.0-4.0); HEMATOCRIT 32.6 % (35.0-46.0); LYMPHOCYTE # 2.2 TH/MM3 (1.0-4.8); MEAN CELL VOLUME 82.8 FL (80.0-100.0); MEAN CORPUSCULAR HGB CONC 32.6 % (32.0-36.0); MONO % 11.9 % (0.0-8.0); NEUT % 66.8 % (16.0-70.0); PLATELET COUNT 371 TH/MM3 (150-450); RED BLOOD COUNT 3.93 MIL/MM3 (4.00-5.30); WHITE BLOOD COUNT 12.8 TH/MM3 (4.0-11.0)
[2016-08-11 12:21] LABS: HEMO FLAGS AUTO DIFF
[2016-08-11 12:25] LABS: BICARBONATE 27.4 MEQ/L (21.0-32.0); POTASSIUM 4.7 MEQ/L (3.5-5.1)
[2016-08-11 12:35] LABS: SCAN/DIFF AUTO DIFF CONFIRMED
[2016-08-11 16:00] VITALS: BP 107/57; PULSE 97; RESP 16; TEMP 98.9; O2SAT 95
[2016-08-11 20:00] VITALS: BP 114/56; PULSE 101; RESP 21; TEMP 96; O2SAT 96
[2016-08-11] MEDS: PRAMIPEXOLE DIHYDROCHLORIDE 0.25 MG TAB PO SCH (21:37)
[2016-08-11] MEDS: ZOLPIDEM TARTRATE 5 MG TAB PO PRN (23:32)
[2016-08-12 00:12] VITALS: BP 117/57; PULSE 101; RESP 20; TEMP 99.9; O2SAT 94
[2016-08-12] MEDS: metroNIDAZOLE 500 MG INJ 100 ML IV SCH ×4 (03:10→20:06)
[2016-08-12] MEDS: ACETAMINOPHEN/HYDROcodone 325 MG/7.5 MG TAB PO PRN ×4 (03:10→21:55)
[2016-08-12] MEDS: CEFEPIME INJ 2,000 MG in SODIUM CHLORIDE 0.9% INJ 100 ML IV SCH ×3 (05:21→21:48)
[2016-08-12 07:03] LABS: AUTOMATED NEUTROPHIL # 4.7 TH/MM3 (1.8-7.7); BASOPHIL % 0.6 % (0.0-2.0); EOSINOPHIL # 0.3 TH/MM3 (0-0.4); EOSINOPHIL % 4.5 % (0.0-4.0); HEMATOCRIT 29.9 % (35.0-46.0); HEMO FLAGS DIFF FINAL; LYMPH % 16.1 % (9.0-44.0); LYMPHOCYTE # 1.2 TH/MM3 (1.0-4.8); MEAN CELL VOLUME 82.8 FL (80.0-100.0); MEAN CORPUSCULAR HGB CONC 32.6 % (32.0-36.0); NEUT % 65.8 % (16.0-70.0); PLATELET COUNT 499 TH/MM3 (150-450); RED BLOOD COUNT 3.61 MIL/MM3 (4.00-5.30); RED CELL DISTRIBUTION WIDTH 16.7 % (11.6-17.2); WHITE BLOOD COUNT 7.2 TH/MM3 (4.0-11.0)
[2016-08-12] MEDS: DOCUSATE SODIUM 50 MG/SENNA 8.6 MG TAB PO SCH (07:34)
[2016-08-12] MEDS: POTASSIUM BICARBONATE 25 MEQ EFFERVESCENT TAB PO SCH (07:34)
[2016-08-12] MEDS: BISACODYL 10 MG SUPP RECTAL SCH (07:35)
[2016-08-12] MEDS: SODIUM CHLORIDE 0.9% FLUSH 5 ML FLUSH IVF SCH ×2 (07:35→20:07)
[2016-08-12] MEDS: FUROSEMIDE 20 MG TAB PO SCH (07:35)
[2016-08-12 07:36] LABS: BICARBONATE 28.3 MEQ/L (21.0-32.0); CALCIUM-PROTEIN CORRECTED 8.9 MG/DL (8.5-10.1); POTASSIUM 3.9 MEQ/L (3.5-5.1)
[2016-08-12 08:00] VITALS: BP 106/54; PULSE 83; RESP 17; TEMP 97.5; O2SAT 96
--- NOTE | 2016-08-12 08:28 | HHI.FPPN ---
Subjective Remarks Patient with a temperature elevated to 99.9 overnight, pulse 80s to 100s, blood pressure 100s to 110s over 40s to 60, pulse ox 93-97% on room air. Wound care nurse fixed leak around wound VAC yesterday and already saw the patient this morning. Now wound VAC leaking again today. Other than this skin, pt denies any abdominal pain deep to the skin. She denies any chest pain, shortness breath, nausea, vomiting, lower extremity pain, dizziness, lightheadedness. She reports good appetite and that she is moving bowels well, rolling in bed well. (Jovani Sebastian MD R1) Objective Vitals Vital Signs Date Time Temp Pulse Resp B/P Pulse Ox O2 Delivery O2 Flow Rate FiO2 08/12/16 00:12 99.9 101 20 117/57 94 08/11/16 20:00 96.0 101 21 114/56 96 08/11/16 16:00 98.9 97 16 107/57 95 08/11/16 12:00 99.4 94 17 110/60 96 I/O 08/11/16 08/11/16 08/11/16 08/12/16 08/12/16 08/12/16 07:00 15:00 23:00 07:00 15:00 23:00 Intake Total 120 ml 360 ml 698 ml 1316 ml Output Total 450 ml 1885 ml 675 ml 1102 ml Balance -330 ml -1525 ml 23 ml 214 ml Intake Oral 120 ml 360 ml 240 ml 120 ml IV Total 458 ml 1196 ml Output Urine Total 450 ml 1885 ml 600 ml 1100 ml Stool Total 2 ml Drainage Total 75 ml # Bowel Movements 0 0 0 (Jovani Sebastian MD R1) Result Diagram: 08/12/16 0526 08/12/16 0526 Imaging Last Impressions Chest X-Ray 07/29/16 0000 Signed Impressions: Service Date/Time: Friday, July 29, 2016 09:32 - CONCLUSION: 1. Bibasilar atelectasis, right greater than left. 2. Compensated cardiomegaly. Fred Solis MD Abdomen/Pelvis CT 07/28/16 0735 Signed Impressions: Service Date/Time: Thursday, July 28, 2016 09:50 - CONCLUSION: 1. There is diffuse and extensive subcutaneous emphysema around the abdominal wall from patient's right lateral abdominal wall all the way across midline to the left lateral abdominal wall. 2. There appears to be of fluid collection in the anterior left abdominal wall suspicious for a subcutaneous abscess. There is nonspecific edema throughout the subcutaneous tissues of the abdominal wall. 3. No acute intra-abdominal/pelvic pathology. Fred Solis MD Objective Remarks GENERAL: NAD, lying in bed, appears comfortable and in no acute distress SKIN: Warm and dry. Patient with ostomy bag and wound VAC covering repaired fistula, with thick yellow output from ostomy and yellow liquid leaking from lateral aspect of dressing overlying wound VAC. Around this area of moisture/ leak, on the lateral aspect of her abdomen and inferior aspect of her pannus, there is warmth, erythema, irritated skin under her LLQ pannus that that is moist with yellow liquid. However, around the medial aspect of the wound, there is decreasing/improving erythema surrounding wound site. There is a 1' x 1' backwards L-shaped incision extending from her midline to her right lower quadrant held together by sutures. In the middle of the midline incision, area of wound dehiscence with surrounding mild erythema covered by black sponge and connected to Wound VAC. HEENT: Normocephalic. Atraumatic. EOMI. No scleral icterus. No injection or drainage. No nasal drainage. Moist mucous membranes. CARDIOVASCULAR: Regular rate and rhythm without murmurs, gallops, or rubs RESPIRATORY: Anterior and lateral lung ballard auscultated as pt movement limited due to pain, clear to auscultation. No accessory muscle use. GASTROINTESTINAL: Abdomen obese. See skin above. Patient reports that she is tender to palpation around the left lower quadrant wound. + bowel sounds. MUSCULOSKELETAL: No pitting edema of bilateral lower extremities. NEURO: Awake and alert. 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 Discharge Planning D/C pending clearance by general surgery. Time frame is unclear. raul Mckinney (Jovani Sebastian MD R1) Attending Attestation Pt. examined and case discussed with resident physician I have read the above note and agree with the assessment/plan as discussed with me I was involved in all medical decision making for this patient Fred Mckinney MD (Fred Mckinney MD) Problem List: (1) Abscess of abdominal wall Status: Acute Plan: Patient with significant abscess of abdominal wall and enterocutaneous fistula Given extent of erythema and edema of skin and subcutaneous abscess seen on CT imaging, we will cover with broad-spectrum antibiotics General Surgery Consulted, appreciate recommendations and interventions WBC decreased to 7.2 today. Platelets still elevated at 499, increased since yesterday. Status post incision and drainage and washout of left abdominal wall, with wound vac placement due to small bowel fistulae on 07/28. Patient has underwent several wound vac changes. POD #1 s/p last wound vac modification by wound care team yesterday. Wound care team consulted and saw patient today. Discussed case with on-call general surgeon Dr. Mathews. Will discuss case with Dr. Velez tomorrow. -Pain control with morphine 2 mg IV q3h prn breakthrough, hold if SBP < 110 or DBP < 60, [place] one [id number] prn pain 610 -Blood cultures NGTD -Met sepsis criteria; tachycardic, tachypneic, with leukocytosis, Lactic acid 1.8 on admission -We'll consider infectious disease consult regarding possibility of long-term antibiotic use Broad Spectrum Antibiotics: - Vancomycin, pharm consult (07/28- ) - Cefepime 2gm IV q8h (07/28- ) - Flagyl 500 mg IV q6h (07/28- ) Imaging 07/28 - Abdomen/Pelvis CT: Diffuse and extensive subcutaneous emphysema around the abdominal wall from patient's right lateral abdominal wall across midline to left lateral abdominal wall. Fluid collection in anterior left abdominal wall suspicious for subcutaneous abscess. Nonspecific edema throughout subcutaneous tissues. No acute intra-abdominal or pelvic pathology. (2) Skin rash Status: Acute Plan: POD #1 s/p last wound vac modification by wound care team yesterday. Wound care team consulted and saw patient today. Discussed case with on-call general surgeon Dr. Mathews. Will discuss case with Dr. Velez tomorrow. (3) Anemia Status: Acute Plan: - Hgb on admission 6.8, s/p 4 units on 07/28 - H&H 9.8 and 29.9, respectively today - Continue to monitor - Iron panel significant for anemia of chronic disease - B12 and Folate both elevated - GI consulted, appreciate recommendations. - No indication of GI bleed at this time. If H&H drops we'll consider EGD versus colonoscopy versus a bleeding scan - PPI: Protonix 40 mg IV daily - Transfuse as needed (4) Lower extremity edema Status: Resolved Plan: Resolved Patient with no pitting edema of bilateral lower extremities on exam. - SCDs - 20 mg Lasix po daily, 25 meq potassium - Will use caution with fluids due to the concern for possible fluid overload. Discontinued IV fluids as patient is hydrating well by mouth (5) Nutrition, metabolism, and development symptoms Status: Acute Plan: Fluids: Discontinued IV fluids Electrolytes: Electrolytes within normal limits, continue to monitor and replete as necessary Nutrition: Regular diet DVT PPX: SCDs. Consider Lovenox; currently held for chronic wound s/p modification/dressing change GI PPX: 40 mg Protonix IV daily, Annette-Colace (Jovani Sebastian MD R1) Problem Qualifiers (1) Anemia: Qualified Code: D64.9 - Anemia, unspecified type Jovani Sebastian MD R1 Aug 12, 2016 08:28 Fred Mckinney MD Aug 12, 2016 17:14
[2016-08-12] MEDS: PANTOPRAZOLE SODIUM 40 MG VIAL IV PUSH SCH (11:14)
[2016-08-12] MEDS: VANCOMYCIN 1,500 MG/NS 500 ML IV SCH ×6 (11:14→23:59)
[2016-08-12 12:00] VITALS: BP 105/54; PULSE 84; RESP 17; TEMP 98; O2SAT 95
[2016-08-12 16:00] VITALS: BP 110/50; PULSE 86; RESP 18; TEMP 97.2; O2SAT 96
[2016-08-12 20:00] VITALS: BP 114/59; PULSE 103; RESP 21; TEMP 96.8; O2SAT 93
[2016-08-12] MEDS: PRAMIPEXOLE DIHYDROCHLORIDE 0.25 MG TAB PO SCH (20:04)
[2016-08-12] MEDS: ZOLPIDEM TARTRATE 5 MG TAB PO PRN (21:55)
[2016-08-12] MEDS ORDERED: PHARMACY ORDERED LAB XX ONE (22:45)
[2016-08-13] VITALS: BP 111/54; PULSE 91; RESP 20; TEMP 96.2; O2SAT 94
[2016-08-13] MEDS: ACETAMINOPHEN/HYDROcodone 325 MG/7.5 MG TAB PO PRN ×4 (02:24→21:10)
[2016-08-13] MEDS: metroNIDAZOLE 500 MG INJ 100 ML IV SCH ×3 (02:24→14:31)
[2016-08-13] MEDS: CEFEPIME INJ 2,000 MG in SODIUM CHLORIDE 0.9% INJ 100 ML IV SCH ×2 (05:19→14:31)
[2016-08-13 07:30] VITALS: BP 112/64; PULSE 95; RESP 20; TEMP 98.6; O2SAT 94
--- NOTE | 2016-08-13 08:37 | HHI.FPPN ---
Subjective Remarks Patient afebrile with vital signs stable overnight, with blood pressure ranging from 105-114 over 50s, pulse ranging from 83-103, pulse ox ranging from 93-96% on room air. No acute events overnight. Patient reports that she required more pain medication yesterday. She is also reporting some right flank pain, which is exacerbated by coughing and deep respirations and palpation, which she attributes to lying on the wound VAC tube. Per nurse and patient report, Gen. surgery to see the patient again today to modify wound vacs, which are still leaking yellow liquid onto her skin. Patient denies any fever, chills, shortness of breath, substernal chest pain, leg pain or swelling, nausea, vomiting, diarrhea. Per nurse report, wound VAC modified by wound nurse this morning. (Jovani Sebastian MD R1) Objective Vitals Vital Signs Date Time Temp Pulse Resp B/P Pulse Ox O2 Delivery O2 Flow Rate FiO2 08/13/16 07:30 98.6 95 20 112/64 94 08/13/16 00:00 96.2 91 20 111/54 94 08/12/16 20:00 96.8 103 21 114/59 93 08/12/16 16:00 97.2 86 18 110/50 96 08/12/16 15:28 18 08/12/16 12:00 98.0 84 17 105/54 95 I/O 08/12/16 08/12/16 08/12/16 08/13/16 08/13/16 08/13/16 07:00 15:00 23:00 07:00 15:00 23:00 Intake Total 1316 ml 837 ml 1183 ml 876 ml Output Total 1102 ml 910 ml 600 ml 850 ml Balance 214 ml -73 ml 583 ml 26 ml Intake Oral 120 ml 240 ml 240 ml 240 ml IV Total 1196 ml 597 ml 943 ml 636 ml Output Urine Total 1100 ml 800 ml 600 ml 800 ml Stool Total 2 ml Drainage Total 110 ml 0 ml 50 ml # Bowel Movements 2 0 0 (Jovani Sebastian MD R1) Result Diagram: 08/12/16 0508/12/16525 Imaging Last Impressions Chest X-Ray 07/29/16 0000 Signed Impressions: Service Date/Time: Friday, July 29, 2016 09:32 - CONCLUSION: 1. Bibasilar atelectasis, right greater than left. 2. Compensated cardiomegaly. Fred Solis MD Abdomen/Pelvis CT 07/28/16 0735 Signed Impressions: Service Date/Time: Thursday, July 28, 2016 09:50 - CONCLUSION: 1. There is diffuse and extensive subcutaneous emphysema around the abdominal wall from patient's right lateral abdominal wall all the way across midline to the left lateral abdominal wall. 2. There appears to be of fluid collection in the anterior left abdominal wall suspicious for a subcutaneous abscess. There is nonspecific edema throughout the subcutaneous tissues of the abdominal wall. 3. No acute intra-abdominal/pelvic pathology. Fred Solis MD Objective Remarks GENERAL: NAD, lying in bed, appears comfortable and in no acute distress SKIN: Warm and dry. Patient with ostomy bag and wound VAC covering repaired fistula, with thick yellow output from ostomy and yellow liquid leaking from lateral aspect of dressing overlying wound VAC. Around this area of moisture/ leak, on the lateral aspect of her abdomen and inferior aspect of her pannus, there is warmth, erythema, irritated skin under her LLQ pannus that that is moist with yellow liquid. However, around the medial aspect of the wound, there is decreasing/improving erythema surrounding wound site. There is a 1' x 1' backwards L-shaped incision extending from her midline to her right lower quadrant held together by sutures. In the middle of the midline incision, area of wound dehiscence with improving surrounding erythema covered by black sponge and connected to Wound VAC. HEENT: Normocephalic. Atraumatic. EOMI. No scleral icterus. No injection or drainage. No nasal drainage. Moist mucous membranes. CARDIOVASCULAR: Regular rate and rhythm without murmurs, gallops, or rubs RESPIRATORY: Anterior and lateral lung ballard auscultated as pt movement limited due to pain, clear to auscultation. No accessory muscle use. GASTROINTESTINAL: Abdomen obese. See skin above. Patient reports that she is tender to palpation around the left lower quadrant wound. + bowel sounds. MUSCULOSKELETAL: No pitting edema of bilateral lower extremities. No calf tenderness. NEURO: Awake and alert. 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 scada operator grossly intact. 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 Discharge Planning D/C pending clearance by general surgery. Time frame is unclear. wdw Dr. Oliver (Jovani Sebastian MD R1) Attending Attestation Patient seen and examined. Case reviewed and discussed. Agree with plan of care as discussed with me and documented in the resident note. Pain controlled. Surgery to adjust wound vac. Significant output from wound vac. Will monitor. 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 Platelets still elevated at 499 yesterday, which represented an increase from the day before. Status post incision and drainage and washout of left abdominal wall, with wound vac placement due to small bowel fistulae on 07/28. Patient has underwent several wound vac changes. POD #2 s/p last wound vac modification by wound care team yesterday. Wound care team consulted. General surgeon Dr. Velez plans to see patient today. Per nurse report, wound VAC modified by wound nurse this morning. -Pain control with morphine 2 mg IV q3h prn breakthrough, hold if SBP < 110 or DBP < 60, [place] one [id number] prn pain 610 -Blood cultures NGTD -Met sepsis criteria; tachycardic, tachypneic, with leukocytosis, Lactic acid 1.8 on admission -We'll consider infectious disease consult regarding possibility of long-term antibiotic use Broad Spectrum Antibiotics: - Vancomycin, pharm consult (07/28- ) - Cefepime 2gm IV q8h (07/28- ) - Flagyl 500 mg IV q6h (07/28- ) Imaging 07/28 - Abdomen/Pelvis CT: Diffuse and extensive subcutaneous emphysema around the abdominal wall from patient's right lateral abdominal wall across midline to left lateral abdominal wall. Fluid collection in anterior left abdominal wall suspicious for subcutaneous abscess. Nonspecific edema throughout subcutaneous tissues. No acute intra-abdominal or pelvic pathology. (2) Skin rash Status: Acute Plan: POD #2 s/p last wound vac modification by wound care team yesterday. Wound care team consulted. General surgeon Dr. Velez plans to see patient today. Per nurse report, wound VAC modified by wound nurse this morning. (3) Anemia Status: Acute Plan: - Hgb on admission 6.8, s/p 4 units on 07/28 - H&H 9.8 and 29.9, respectively yesterday - Continue to monitor - Iron panel significant for anemia of chronic disease - B12 and Folate both elevated - GI consulted, appreciate recommendations. - No indication of GI bleed at this time. If H&H drops we'll consider EGD versus colonoscopy versus a bleeding scan - PPI: Protonix 40 mg IV daily - Transfuse as needed (4) Lower extremity edema Status: Resolved Plan: Resolved Patient with no pitting edema of bilateral lower extremities on exam. - SCDs - 20 mg Lasix po daily, 25 meq potassium - Will use caution with fluids due to the concern for possible fluid overload. Discontinued IV fluids as patient is hydrating well by mouth (5) Nutrition, metabolism, and development symptoms Status: Acute Plan: Fluids: Discontinued IV fluids Electrolytes: Electrolytes within normal limits, continue to monitor and replete as necessary Nutrition: Regular diet DVT PPX: SCDs. Consider Lovenox; currently held for chronic wound s/p modification/dressing change GI PPX: 40 mg Protonix IV daily, Annette-Colace (Jovani Sebastian MD R1) Problem Qualifiers (1) Anemia: Qualified Code: D64.9 - Anemia, unspecified type Jovani Sebastian MD R1 Aug 13, 2016 08:37 Cassy Oliver MD Aug 13, 2016 11:12
[2016-08-13] MEDS: DOCUSATE SODIUM 50 MG/SENNA 8.6 MG TAB PO SCH (08:53)
[2016-08-13] MEDS: SODIUM CHLORIDE 0.9% FLUSH 5 ML FLUSH IVF SCH ×2 (08:53→21:11)
[2016-08-13] MEDS: FUROSEMIDE 20 MG TAB PO SCH (08:54)
[2016-08-13] MEDS: POTASSIUM BICARBONATE 25 MEQ EFFERVESCENT TAB PO SCH (08:57)
[2016-08-13] MEDS: BISACODYL 10 MG SUPP RECTAL SCH (08:57)
[2016-08-13] MEDS ORDERED: HYDROmorphone HCL PF 1 MG/ML VIAL IV PUSH ONE (10:00)
[2016-08-13] MEDS: PANTOPRAZOLE SODIUM 40 MG VIAL IV PUSH SCH (10:30)
[2016-08-13] MEDS: VANCOMYCIN 1,500 MG/NS 500 ML IV SCH ×2 (10:30)
[2016-08-13 10:44] LABS: AUTOMATED NEUTROPHIL # 4.1 TH/MM3 (1.8-7.7); BASOPHIL # 0.1 TH/MM3 (0-0.2); BASOPHIL % 0.9 % (0.0-2.0); EOSINOPHIL # 0.3 TH/MM3 (0-0.4); EOSINOPHIL % 4.1 % (0.0-4.0); HEMATOCRIT 31.5 % (35.0-46.0); HEMO FLAGS DIFF FINAL; LYMPH % 17.8 % (9.0-44.0); LYMPHOCYTE # 1.2 TH/MM3 (1.0-4.8); MEAN CELL VOLUME 83.4 FL (80.0-100.0); MEAN CORPUSCULAR HEMOGLOBIN 27.1 PG (27.0-34.0); MEAN CORPUSCULAR HGB CONC 32.5 % (32.0-36.0); MONO % 13.8 % (0.0-8.0); NEUT % 63.4 % (16.0-70.0); PLATELET COUNT 487 TH/MM3 (150-450); RED BLOOD COUNT 3.78 MIL/MM3 (4.00-5.30); RED CELL DISTRIBUTION WIDTH 17.1 % (11.6-17.2); WHITE BLOOD COUNT 6.5 TH/MM3 (4.0-11.0)
[2016-08-13 12:00] VITALS: BP 103/52; PULSE 92; RESP 17; TEMP 98.2; O2SAT 96
[2016-08-13 16:00] VITALS: BP 121/58; PULSE 94; RESP 16; TEMP 98.9; O2SAT 95
[2016-08-13] MEDS: LACTOBACILLUS ACIDOPHILUS TAB PO SCH (16:36)
[2016-08-13] MEDS: ENOXAPARIN SODIUM 40 MG/0.4 ML SYRINGE SQ SCH (16:37)
--- NOTE | 2016-08-13 16:42 | HHI.PR ---
Subjective Subjective Notes had a good week end Objective Vitals/I&O Vital Signs Date Time Temp Pulse Resp B/P Pulse Ox O2 Delivery O2 Flow Rate FiO2 08/13/16 12:00 98.2 92 17 103/52 96 Labs Laboratory Tests Test 08/12/16 08/13/16 22:40 09:45 Vancomycin Level Trough 17.8 White Blood Count 6.5 Red Blood Count 3.78 Hemoglobin 10.2 Hematocrit 31.5 Mean Corpuscular Volume 83.4 Mean Corpuscular Hemoglobin 27.1 Mean Corpuscular Hemoglobin 32.5 Concent Red Cell Distribution Width 17.1 Platelet Count 487 Mean Platelet Volume 7.1 Neutrophils (%) (Auto) 63.4 Lymphocytes (%) (Auto) 17.8 Monocytes (%) (Auto) 13.8 Eosinophils (%) (Auto) 4.1 Basophils (%) (Auto) 0.9 Neutrophils # (Auto) 4.1 Lymphocytes # (Auto) 1.2 Monocytes # (Auto) 0.9 Eosinophils # (Auto) 0.3 Basophils # (Auto) 0.1 CBC Comment DIFF FINAL Differential Comment Hematology Comments Radiology Narrative Exam VAC dressing intact Discussed with Jane VAC therapy nurse A/P Problem List: (1) Enterocutaneous fistula (2) Subcutaneous abscess (3) Abscess of abdominal wall Assessment and Plan 65-year-old female who recently had exploration in [place] with 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
[2016-08-13] MEDS: PRAMIPEXOLE DIHYDROCHLORIDE 0.25 MG TAB PO SCH (18:47)
[2016-08-13 20:00] VITALS: BP 111/58; PULSE 93; RESP 20; TEMP 98.6; O2SAT 95
[2016-08-13] MEDS: ZOLPIDEM TARTRATE 5 MG TAB PO PRN (21:11)
[2016-08-14] VITALS: BP 116/66; PULSE 94; RESP 20; TEMP 97.8; O2SAT 96
[2016-08-14] MEDS: ACETAMINOPHEN/HYDROcodone 325 MG/7.5 MG TAB PO PRN ×5 (01:30→21:26)
[2016-08-14 08:00] VITALS: BP 107/53; PULSE 85; RESP 17; TEMP 99.7; O2SAT 96
[2016-08-14] MEDS: POTASSIUM BICARBONATE 25 MEQ EFFERVESCENT TAB PO SCH (09:00)
[2016-08-14] MEDS: LACTOBACILLUS ACIDOPHILUS TAB PO SCH ×3 (10:28→17:45)
[2016-08-14] MEDS: FUROSEMIDE 20 MG TAB PO SCH (10:29)
[2016-08-14] MEDS: DOCUSATE SODIUM 50 MG/SENNA 8.6 MG TAB PO SCH (10:29)
[2016-08-14] MEDS: SODIUM CHLORIDE 0.9% FLUSH 5 ML FLUSH IVF SCH ×2 (10:31→21:28)
[2016-08-14] MEDS: FAMOTIDINE 20 MG TAB PO SCH ×2 (10:32→21:26)
[2016-08-14] MEDS: BISACODYL 10 MG SUPP RECTAL SCH (10:39)
[2016-08-14 12:00] VITALS: BP 109/56; PULSE 103; RESP 17; TEMP 100.5; O2SAT 96
--- NOTE | 2016-08-14 14:24 | HHI.FPPN ---
Subjective Remarks No acute events overnight. Patient was lying episode of elevated temperature of 100.5 at 12 noon today. Overnight, blood pressure ranged from 103-121/52-66, pulse ranged from 85-103, pulse ox ranged from 93-96% on room air. Patient seen with wound care team at bedside. Discussed case with wound care team and with Florecita Sadler surgery STRAW HAT WASHER OPERATOR who was outside the room. Patient denies any fever, chills, chest pain, shortness of breath, abdominal pain outside of her wound. She reports decreased appetite and endorses bowel movements. (Jovani Sebastian MD R1) Objective Vitals Vital Signs Date Time Temp Pulse Resp B/P Pulse Ox O2 Delivery O2 Flow Rate FiO2 08/14/16 12:00 100.5 103 17 109/56 96 08/14/16 08:00 99.7 85 17 107/53 96 08/14/16 00:00 97.8 94 20 116/66 96 08/13/16 20:00 98.6 93 20 111/58 95 08/13/16 16:00 98.9 94 16 121/58 95 I/O 08/13/16 08/13/16 08/13/16 08/14/16 08/14/16 08/14/16 07:00 15:00 23:00 07:00 15:00 23:00 Intake Total 876 ml 897 ml 480 ml 240 ml 0 ml Output Total 850 ml 1825 ml 750 ml 850 ml 150 ml Balance 26 ml -928 ml -270 ml -610 ml -150 ml Intake Oral 240 ml 480 ml 480 ml 240 ml IV Total 636 ml 417 ml 0 ml Output Urine Total 800 ml 1800 ml 750 ml 850 ml Drainage Total 50 ml 25 ml 150 ml # Bowel Movements 0 0 0 0 (Jovani Sebastian MD R1) Result Diagram: 08/13/16 0945 08/12/16 0526 Imaging Last Impressions Chest X-Ray 07/29/16 0000 Signed Impressions: Service Date/Time: Friday, July 29, 2016 09:32 - CONCLUSION: 1. Bibasilar atelectasis, right greater than left. 2. Compensated cardiomegaly. Fred Solis MD Abdomen/Pelvis CT 07/28/16 0735 Signed Impressions: Service Date/Time: Thursday, July 28, 2016 09:50 - CONCLUSION: 1. There is diffuse and extensive subcutaneous emphysema around the abdominal wall from patient's right lateral abdominal wall all the way across midline to the left lateral abdominal wall. 2. There appears to be of fluid collection in the anterior left abdominal wall suspicious for a subcutaneous abscess. There is nonspecific edema throughout the subcutaneous tissues of the abdominal wall. 3. No acute intra-abdominal/pelvic pathology. Fred Solis MD Objective Remarks GENERAL: NAD, lying in bed, in no acute distress SKIN: Warm and dry. Patient with ostomy bag and wound VAC covering repaired fistula, with thick yellow output from ostomy and yellow liquid leaking from superior aspect of dressing overlying wound VAC. Around this area of moisture/ leak, on the lateral aspect of her abdomen and inferior aspect of her pannus, there is warmth, erythema, irritated skin under her LLQ pannus that that is moist with yellow liquid. However, around the medial aspect of the wound, there is decreasing/improving erythema surrounding wound site. There is a 1' x 1' backwards L-shaped incision extending from her midline to her right lower quadrant held together by sutures. In the middle of the midline incision, area of wound dehiscence with improving surrounding erythema covered by black sponge and connected to Wound VAC. HEENT: Normocephalic. Atraumatic. EOMI. No scleral icterus. No injection or drainage. No nasal drainage. Moist mucous membranes. CARDIOVASCULAR: Regular rate and rhythm without murmurs, gallops, or rubs RESPIRATORY: Anterior and lateral lung ballard auscultated as pt movement limited due to pain, clear to auscultation. No accessory muscle use. GASTROINTESTINAL: Abdomen obese. See skin above. Patient reports that she is tender to palpation around the left lower quadrant wound. + bowel sounds. MUSCULOSKELETAL: No pitting edema of bilateral lower extremities. No calf tenderness. NEURO: Awake and alert. 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 master control operator grossly intact. 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 Discharge Planning D/C pending clearance by general surgery. Time frame is unclear. dw Dr. Oliver (Jovani Sebastian MD R1) Attending Attestation Patient seen and examined. Case reviewed and discussed Agree with plan of care as discussed with me and documented in the resident note. 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 Discontinued broad-spectrum antibiotics given patient's lack of fever, leukocytosis, concern for bacterial resistance. General Surgery Consulted, appreciate recommendations and interventions WBC stable at 7.5 today. Platelets still elevated at 545 today, which represents an increase from the day before. Status post incision and drainage and washout of left abdominal wall, with wound vac placement due to small bowel fistulae on 07/28. Patient has underwent several wound vac changes. POD #0 s/p last wound vac modification by wound care team today. Patient seen and discussed with wound care team. General surgeon Dr. Velez plans to see patient tomorrow. -Pain control with morphine 2 mg IV q3h prn breakthrough, hold if SBP < 110 or DBP < 60, [place] one [id number] prn pain 610 -Blood cultures NGTD -Met sepsis criteria; tachycardic, tachypneic, with leukocytosis, Lactic acid 1.8 on admission -We'll consider infectious disease consult regarding possibility of long-term antibiotic use Broad Spectrum Antibiotics: - Vancomycin, pharm consult (07/28-08/13) - Cefepime 2gm IV q8h (07/28-08/13) - Flagyl 500 mg IV q6h (07/28-08/13) Imaging 07/28 - Abdomen/Pelvis CT: Diffuse and extensive subcutaneous emphysema around the abdominal wall from patient's right lateral abdominal wall across midline to left lateral abdominal wall. Fluid collection in anterior left abdominal wall suspicious for subcutaneous abscess. Nonspecific edema throughout subcutaneous tissues. No acute intra-abdominal or pelvic pathology. (2) Skin rash Status: Acute Plan: POD #0 s/p last wound vac modification by wound care team today. Patient seen and discussed with wound care team. General surgeon Dr. Velez plans to see patient tomorrow. (3) Anemia Status: Acute Plan: - Hgb on admission 6.8, s/p 4 units on 07/28 - H&H 11.5 and 35.3, respectively yesterday - Continue to monitor - Iron panel significant for anemia of chronic disease - B12 and Folate both elevated - GI consulted, appreciate recommendations. - No indication of GI bleed at this time. If H&H drops we'll consider EGD versus colonoscopy versus a bleeding scan - PPI: Protonix 40 mg IV daily - Transfuse as needed (4) Lower extremity edema Status: Resolved Plan: Resolved Patient with no pitting edema of bilateral lower extremities on exam. - SCDs - 20 mg Lasix po daily, 25 meq potassium - Will use caution with fluids due to the concern for possible fluid overload. Discontinued IV fluids as patient is hydrating well by mouth. We'll consider restarting IV fluids tomorrow given patient's lack of appetite today. (5) Nutrition, metabolism, and development symptoms Status: Acute Plan: Fluids: Discontinued IV fluids Electrolytes: Electrolytes within normal limits, continue to monitor and replete as necessary Nutrition: Regular diet DVT PPX: SCDs and Lovenox; risk of DVT and PE greater than risk for chronic wound bleeding GI PPX: 40 mg Protonix IV daily, Annette-Colace, lactobacillus probiotic to repopulate gut donna (Jovani Sebastian MD R1) Problem Qualifiers (1) Anemia: Qualified Code: D64.9 - Anemia, unspecified type Jovani Sebastian MD R1 Aug 14, 2016 14:24 Cassy Oliver MD Aug 14, 2016 17:15
[2016-08-14] MEDS: ENOXAPARIN SODIUM 40 MG/0.4 ML SYRINGE SQ SCH (14:59)
[2016-08-14 15:43] LABS: AUTOMATED NEUTROPHIL # 4.8 TH/MM3 (1.8-7.7); BASOPHIL % 0.5 % (0.0-2.0); EOSINOPHIL # 0.3 TH/MM3 (0-0.4); EOSINOPHIL % 3.4 % (0.0-4.0); HEMATOCRIT 35.3 % (35.0-46.0); HEMO FLAGS DIFF FINAL; LYMPH % 19.1 % (9.0-44.0); LYMPHOCYTE # 1.4 TH/MM3 (1.0-4.8); MEAN CELL VOLUME 83.6 FL (80.0-100.0); MEAN CORPUSCULAR HEMOGLOBIN 27.2 PG (27.0-34.0); MEAN CORPUSCULAR HGB CONC 32.6 % (32.0-36.0); MONO % 13.2 % (0.0-8.0); NEUT % 63.8 % (16.0-70.0); PLATELET COUNT 545 TH/MM3 (150-450); RED BLOOD COUNT 4.23 MIL/MM3 (4.00-5.30); RED CELL DISTRIBUTION WIDTH 17.1 % (11.6-17.2); WHITE BLOOD COUNT 7.5 TH/MM3 (4.0-11.0)
[2016-08-14 16:00] VITALS: BP 119/67; PULSE 107; RESP 16; TEMP 99.4; O2SAT 97
[2016-08-14 16:05] LABS: BICARBONATE 29.1 MEQ/L (21.0-32.0); POTASSIUM 4.2 MEQ/L (3.5-5.1)
[2016-08-14 16:06] LABS: CALCIUM-PROTEIN CORRECTED 8.9 MG/DL (8.5-10.1)
[2016-08-14] MEDS: PRAMIPEXOLE DIHYDROCHLORIDE 0.25 MG TAB PO SCH (18:54)
[2016-08-14 20:00] VITALS: BP 98/59; PULSE 100; RESP 18; TEMP 100.3; O2SAT 95
[2016-08-14] MEDS: ZOLPIDEM TARTRATE 5 MG TAB PO PRN (22:36)
[2016-08-15] VITALS: BP 100/62; PULSE 92; RESP 20; TEMP 100; O2SAT 96
[2016-08-15] MEDS: ACETAMINOPHEN/HYDROcodone 325 MG/7.5 MG TAB PO PRN ×4 (03:02→21:52)
[2016-08-15 07:48] LABS: ALKALINE PHOSPHATASE 97 U/L (45-117); ALT (GPT) 7 U/L (10-53); ANION GAP 11 MEQ/L (5-15); AST (GOT) 13 U/L (15-37); BICARBONATE 25.6 MEQ/L (21.0-32.0); CHLORIDE 99 MEQ/L (98-107); GLOMERULAR FILTRATION RATE 136 ML/MIN (>89); POTASSIUM 4.5 MEQ/L (3.5-5.1); SODIUM (NA) 136 MEQ/L (136-145); TOTAL BILIRUBIN ADULT 0.2 MG/DL (0.2-1.0)
[2016-08-15 07:50] LABS: BLOOD UREA NITROGEN 9 MG/DL (7-18)
[2016-08-15 08:00] VITALS: BP 103/55; PULSE 90; RESP 16; TEMP 98.6; O2SAT 93
[2016-08-15] MEDS: FUROSEMIDE 20 MG TAB PO SCH (09:00)
[2016-08-15] MEDS: SODIUM CHLORIDE 0.9% FLUSH 5 ML FLUSH IVF SCH ×2 (09:00→21:00)
[2016-08-15] MEDS: BISACODYL 10 MG SUPP RECTAL SCH (09:00)
[2016-08-15] MEDS: POTASSIUM BICARBONATE 25 MEQ EFFERVESCENT TAB PO SCH (09:00)
[2016-08-15] MEDS: FAMOTIDINE 20 MG TAB PO SCH ×2 (09:01→21:52)
[2016-08-15] MEDS: LACTOBACILLUS ACIDOPHILUS TAB PO SCH ×3 (09:01→15:50)
[2016-08-15] MEDS: DOCUSATE SODIUM 50 MG/SENNA 8.6 MG TAB PO SCH (09:01)
[2016-08-15] MEDS ORDERED: HYDROmorphone HCL PF 1 MG/ML VIAL IV PRN (10:30)
[2016-08-15 10:38] LABS: AUTOMATED NEUTROPHIL # 4.5 TH/MM3 (1.8-7.7); BASOPHIL # 0.1 TH/MM3 (0-0.2); EOSINOPHIL # 0.4 TH/MM3 (0-0.4); EOSINOPHIL % 5.1 % (0.0-4.0); HEMATOCRIT 32.6 % (35.0-46.0); HEMO FLAGS DIFF FINAL; LYMPH % 18.6 % (9.0-44.0); LYMPHOCYTE # 1.3 TH/MM3 (1.0-4.8); MEAN CELL VOLUME 83.5 FL (80.0-100.0); MEAN CORPUSCULAR HGB CONC 32.3 % (32.0-36.0); MONO % 12.5 % (0.0-8.0); NEUT % 62.8 % (16.0-70.0); PLATELET COUNT 538 TH/MM3 (150-450); RED CELL DISTRIBUTION WIDTH 17.1 % (11.6-17.2); WHITE BLOOD COUNT 7.2 TH/MM3 (4.0-11.0)
--- NOTE | 2016-08-15 10:44 | HHI.FPPN ---
Subjective Remarks Pt seen and examined this morning, yesterday pt with elevated temp to 100.5, afebrile this morning. Pt endorses abdominal pain, + flatus, she had several bowel movements yesterday. Pt has a wound vac change scheduled for later today. Pt has started a pureed diet as she thinks this will help with drainage and has not eaten this morning in anticipation of wound vac change. She reports severe discomfort and Dilaudid has not been sufficient to control her pain with this procedure. The senior process control tech has recommended PICC line placement as well as TPN for bowel rest to help prevent drainage from ostomy bag over fistula repair. ( Sumaya Wheeler MD R2) Objective Vitals Vital Signs Date Time Temp Pulse Resp B/P Pulse Ox O2 Delivery O2 Flow Rate FiO2 08/15/16 08:00 98.6 90 16 103/55 93 08/15/16 00:00 100.0 92 20 100/62 96 08/14/16 20:00 100.3 100 18 98/59 95 08/14/16 16:00 99.4 107 16 119/67 97 08/14/16 12:00 100.5 103 17 109/56 96 I/O 08/14/16 08/14/16 08/14/16 08/15/16 08/15/16 08/15/16 07:00 15:00 23:00 07:00 15:00 23:00 Intake Total 240 ml 0 ml 360 ml 240 ml Output Total 850 ml 150 ml 650 ml 550 ml Balance -610 ml -150 ml -290 ml -310 ml Intake Oral 240 ml 360 ml 240 ml IV Total 0 ml Output Urine Total 850 ml 600 ml 500 ml Drainage Total 150 ml 50 ml 50 ml # Bowel Movements 0 1 0 0 (Sumaya Wheeler MD R2) Result Diagram: 08/14/16 1433 08/15/16 0622 Objective Remarks GENERAL: NAD, lying in bed, in no acute distress SKIN: Warm and dry. Patient with ostomy bag and wound VAC covering repaired fistula, with thick yellow output from ostomy and yellow liquid leaking from superior and inferior aspect of dressing overlying wound VAC. Around this area of moisture/leak, on the lateral aspect of her abdomen and inferior aspect of her pannus, there is warmth, erythema, irritated skin under her LLQ pannus that that is moist with yellow liquid. However, around the medial aspect of the wound , there is decreasing/improving erythema surrounding wound site. There is a 1' x 1' backwards L-shaped incision extending from her midline to her right lower quadrant held together by sutures. In the middle of the midline incision, area of wound prior dehiscence with improving surrounding erythema covered by black sponge and connected to Wound VAC. On pts lower lateral back there is an area about 7'x8' of erythema likely skin irritation from leaking ostomy. The skin HEENT: Normocephalic. Atraumatic. EOMI. No scleral icterus. No injection or drainage. No nasal drainage. Moist mucous membranes. CARDIOVASCULAR: Regular rate and rhythm without murmurs, gallops, or rubs RESPIRATORY: Anterior and lateral lung ballard auscultated as pt movement limited due to pain, clear to auscultation. No accessory muscle use. GASTROINTESTINAL: Abdomen obese. See skin above. Patient reports that she is tender to palpation around the left lower quadrant wound. + bowel sounds. MUSCULOSKELETAL: No pitting edema of bilateral lower extremities. No calf tenderness. NEURO: Awake and alert. 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 certified nursing attendant grossly intact. 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 Discharge Planning D/C pending clearance by general surgery. Time frame is unclear. wdw Dr. Oliver (Sumaya Wheeler MD R2) Attending Attestation Patient seen and examined. Case reviewed and discussed with the resident team Agree with plan of care as discussed with me and documented in the resident note. Doing well, PICC line placed. Discussed encouraging mobilization -- will remove Rush tomorrow and attempt to get OOB to chair with assistance. (Cassy Oliver MD) Problem List: (1) Enterocutaneous fistula Status: Acute Plan: Patient with significant abscess of abdominal wall and enterocutaneous fistula on admission. General Surgery Consulted, appreciate recommendations and interventions WBC stable at 7.2 today. Platelets still elevated at 538 today, likely as an acute phase reactant. Status post incision and drainage and washout of left abdominal wall, with wound vac placement due to small bowel fistulae on 07/28. Patient with persistent wound drainage despite several wound VAC changes. We'll initiate PICC line and TPN to help reduce drainage and promote wound healing, this has been cleared by general surgery. Anticipate wound VAC bruno at bedside later today, by general surgery, Dr. Velez. -Pain control with [place] 7.5325 Q4hrs prn pain 610, morphine 2 mg IV q3h prn breakthrough, hold if SBP < 110 or DBP < 60 -Blood cultures no growth for 5 days -If pt has additional fevers consider blood culture, wound culture, antibiotics to cover for abdominal infection Imaging 07/28 - Abdomen/Pelvis CT: Diffuse and extensive subcutaneous emphysema around the abdominal wall from patient's right lateral abdominal wall across midline to left lateral abdominal wall. Fluid collection in anterior left abdominal wall suspicious for subcutaneous abscess. Nonspecific edema throughout subcutaneous tissues. No acute intra-abdominal or pelvic pathology. Prior antibiotics: - Vancomycin, pharm consult (07/28-08/13) - Cefepime 2gm IV q8h (07/28-08/13) - Flagyl 500 mg IV q6h (07/28-08/13) (2) Skin rash Status: Acute Plan: See physical exam regarding skin findings -Wound VAC to be changed later today -Continue to monitor drainage from fistula -Wound care consulted -Will hopefully improve with dietary changes: PICC line, TPN (3) Anemia Status: Acute Plan: - Hgb on admission 6.8, s/p 4 units on 07/28 - H&H 10.5 and 32.6, respectively yesterday - Continue to monitor - Iron panel significant for anemia of chronic disease - B12 and Folate both elevated - GI consulted, appreciate recommendations. - No indication of GI bleed at this time. If H&H drops we'll consider EGD versus colonoscopy versus a bleeding scan - PPI: Protonix 40 mg IV daily - Transfuse as needed (4) Lower extremity edema Status: Resolved Plan: Resolved Patient with no pitting edema of bilateral lower extremities on exam. - SCDs - 20 mg Lasix po daily, 25 meq potassium (5) Nutrition, metabolism, and development symptoms Status: Acute Plan: Fluids: None at this time, will consider starting depending on how pt tolerates TPN Electrolytes: Electrolytes within normal limits, continue to monitor and replete as necessary Nutrition: TPN DVT PPX: SCDs and Lovenox; risk of DVT and PE greater than risk for chronic wound bleeding GI PPX: Pepcid, Annette-Colace, lactobacillus probiotic to repopulate gut donna (Sumaya Wheeler MD R2) Problem Qualifiers (1) Anemia: Qualified Code: D64.9 - Anemia, unspecified type Sumaya Wheeler MD R2 Aug 15, 2016 10:44 Cassy Oliver MD Aug 16, 2016 15:31
[2016-08-15 12:00] VITALS: BP 107/55; PULSE 98; RESP 20; TEMP 99.6; O2SAT 94
--- NOTE | 2016-08-15 13:03 | HHI.PR ---
Subjective Subjective Notes DAILY PROGRESS NOTE FOR SURGICAL ATTENDING, DR. LANDRY VELEZ Resting in bed Wound Care Justin also at bedside Objective Vitals/I&O Vital Signs Date Time Temp Pulse Resp B/P Pulse Ox O2 Delivery O2 Flow Rate FiO2 08/15/16 08:00 98.6 90 16 103/55 93 Labs Laboratory Tests Test 08/14/16 08/15/16 08/15/16 14:33 06:22 10:23 White Blood Count 7.5 7.2 Red Blood Count 4.23 3.90 Hemoglobin 11.5 10.5 Hematocrit 35.3 32.6 Mean Corpuscular Volume 83.6 83.5 Mean Corpuscular Hemoglobin 27.2 27.0 Mean Corpuscular Hemoglobin 32.6 32.3 Concent Red Cell Distribution Width 17.1 17.1 Platelet Count 545 538 Mean Platelet Volume 7.0 6.7 Neutrophils (%) (Auto) 63.8 62.8 Lymphocytes (%) (Auto) 19.1 18.6 Monocytes (%) (Auto) 13.2 12.5 Eosinophils (%) (Auto) 3.4 5.1 Basophils (%) (Auto) 0.5 1.0 Neutrophils # (Auto) 4.8 4.5 Lymphocytes # (Auto) 1.4 1.3 Monocytes # (Auto) 1.0 0.9 Eosinophils # (Auto) 0.3 0.4 Basophils # (Auto) 0.0 0.1 CBC Comment DIFF FINAL DIFF FINAL Differential Comment Sodium Level 136 136 Potassium Level 4.2 4.5 Chloride Level 100 99 Carbon Dioxide Level 29.1 25.6 Anion Gap 7 11 Blood Urea Nitrogen 8 9 Creatinine 0.47 0.46 Estimat Glomerular Filtration 133 136 Rate Random Glucose 82 106 Calcium Level 8.6 8.3 Protein Corrected Calcium 8.9 Total Protein 6.6 5.9 Total Bilirubin 0.2 Aspartate Amino Transf 13 (AST/SGOT) Alanine Aminotransferase 7 (ALT/SGPT) Alkaline Phosphatase 97 Albumin 1.9 Radiology Cardiovascular: Regular Lungs: Clear Extremities: Other (gen edema ) Narrative Exam Abd: Wound VAC in place with good seal A/P Problem List: (1) Enterocutaneous fistula (2) Subcutaneous abscess (3) Abscess of abdominal wall Assessment and Plan 65-year-old female who recently had exploration in [place] with 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 LANDRY VELEZ I agree with above assessment and plan. The exam, history, and the medical decision-making described in the above note were completed with the assistance of the mid-level provider. I reviewed and agree with the findings presented. I attest that I had a [id number] encounter with the patient on the same day, and personally performed and documented my assessment and findings in the medical record. The following services were provided during this hospital visit: Chart data review, vital sign assessments/reviewing monitor data Review of consultations notes if present. Medication orders/review and/or management Ordering and/or reviewing lab tests Ordering and/or interpreting/reviewing x-rays and/or diagnostic studies Care of the patient and discussion of the patient with the care team Documentation time To help prompt me to consider important information that might be impacting today's encounter and assessment, information from prior notes written by myself or my colleagues may have been "brought forward/copy and pasted" into today's note. Problem Qualifiers (1) Subcutaneous abscess: Arabella Pickering Aug 15, 2016 13:03 Landry Velez MD Aug 17, 2016 14:05
[2016-08-15] MEDS: HYDROmorphone HCL PF 1 MG/ML VIAL IV PRN (14:02)
--- NOTE | 2016-08-15 14:31 | RADRPT ---
EXAM DATE/TIME: 08/15/2016 14:01 [facility] COMPARISON: CHEST SINGLE AP, July 29, 2016, 9:32. INDICATIONS : PICC Line Placement. MEDICAL HISTORY : None. SURGICAL HISTORY : None. ENCOUNTER: Initial ACUITY: 4 - 6 days PAIN SCORE: 0/10 LOCATION: Bilateral chest FINDINGS: A single AP erect portable view of the chest was obtained and demonstrates interval placement left-si ded PICC line tip projected over the superior vena cava. There is no pneumothorax. The heart size rem ains at the upper limits of normal. Discoid atelectasis remains in the right lung base. Mild to moder ate scoliosis is noted with degenerative change. CONCLUSION: 1. Interval placement left-sided PICC line. 2. Discoid atelectasis remains at the right lung base. Jovani Forte MD on August 15, 2016 at 14:29 Board Certified Radiologist. This report was verified electronically.
[2016-08-15] MEDS: ENOXAPARIN SODIUM 40 MG/0.4 ML SYRINGE SQ SCH (15:50)
[2016-08-15 16:00] VITALS: BP 138/61; PULSE 67; RESP 18; TEMP 99.4; O2SAT 93
--- NOTE | 2016-08-15 17:07 | RADRPT ---
EXAM DATE/TIME: 08/15/2016 16:48 [facility] COMPARISON: CHEST SINGLE AP, August 15, 2016, 14:01. INDICATIONS : Fever starting today MEDICAL HISTORY : None. SURGICAL HISTORY : None. ENCOUNTER: Initial ACUITY: 1 day PAIN SCORE: 0/10 LOCATION: Bilateral chest FINDINGS: A single AP portable erect view of the chest was obtained and again demonstrates a left-sided PICC li ne in place. Discoid atelectasis remains the right lung base with no new infiltrates or effusions. Mi ld to moderate scoliosis and mild degenerative changes are present in the thoracic spine. CONCLUSION: Stable appearance with discoid atelectasis and no evidence of acute pneumonia. Jovani Forte MD on August 15, 2016 at 17:03 Board Certified Radiologist. This report was verified electronically.
[2016-08-15 20:00] VITALS: BP 117/58; PULSE 108; RESP 18; TEMP 99.9; O2SAT 93
[2016-08-15] MEDS: CLINIMIX E 5/25 2000 mL- >42 mls/hr IV-CENTRAL SCH ×3 (21:51)
[2016-08-15] MEDS: FAT EMULSION 20% INJ 250 ML (Twice weekly over 8 hours) IV-CENTRAL SCH (21:51)
[2016-08-15] MEDS: PRAMIPEXOLE DIHYDROCHLORIDE 0.25 MG TAB PO SCH (21:52)
[2016-08-15] MEDS: ZOLPIDEM TARTRATE 5 MG TAB PO PRN (23:15)
[2016-08-16] VITALS: BP 110/57; PULSE 94; RESP 20; TEMP 98.3; O2SAT 93
[2016-08-16 04:50] LABS: AUTOMATED NEUTROPHIL # 2.8 TH/MM3 (1.8-7.7); BASOPHIL % 0.9 % (0.0-2.0); EOSINOPHIL # 0.3 TH/MM3 (0-0.4); EOSINOPHIL % 6.6 % (0.0-4.0); HEMATOCRIT 30.6 % (35.0-46.0); HEMO FLAGS DIFF FINAL; LYMPH % 20.9 % (9.0-44.0); MEAN CELL VOLUME 83.3 FL (80.0-100.0); MEAN CORPUSCULAR HEMOGLOBIN 27.5 PG (27.0-34.0); MEAN CORPUSCULAR HGB CONC 33.1 % (32.0-36.0); MONO % 14.8 % (0.0-8.0); NEUT % 56.8 % (16.0-70.0); PLATELET COUNT 468 TH/MM3 (150-450); RED BLOOD COUNT 3.68 MIL/MM3 (4.00-5.30); RED CELL DISTRIBUTION WIDTH 16.6 % (11.6-17.2)
[2016-08-16 05:16] LABS: ALKALINE PHOSPHATASE 104 U/L (45-117); ALT (GPT) 8 U/L (10-53); ANION GAP 9 MEQ/L (5-15); AST (GOT) 8 U/L (15-37); BICARBONATE 31.3 MEQ/L (21.0-32.0); BLOOD UREA NITROGEN 10 MG/DL (7-18); CALCIUM-PROTEIN CORRECTED 8.9 MG/DL (8.5-10.1); CHLORIDE 97 MEQ/L (98-107); GLOMERULAR FILTRATION RATE 123 ML/MIN (>89); SODIUM (NA) 137 MEQ/L (136-145); TOTAL BILIRUBIN ADULT 0.2 MG/DL (0.2-1.0)
[2016-08-16 08:00] VITALS: BP 111/58; PULSE 88; RESP 17; TEMP 97.4; O2SAT 95
[2016-08-16] MEDS: DOCUSATE SODIUM 50 MG/SENNA 8.6 MG TAB PO SCH (08:58)
[2016-08-16] MEDS: FAMOTIDINE 20 MG TAB PO SCH ×2 (08:58→20:38)
[2016-08-16] MEDS: LACTOBACILLUS ACIDOPHILUS TAB PO SCH ×3 (08:58→16:14)
[2016-08-16] MEDS: BISACODYL 10 MG SUPP RECTAL SCH (08:59)
[2016-08-16] MEDS: FUROSEMIDE 20 MG TAB PO SCH (08:59)
[2016-08-16] MEDS: SODIUM CHLORIDE 0.9% FLUSH 5 ML FLUSH IVF SCH ×2 (08:59→20:38)
[2016-08-16] MEDS: POTASSIUM BICARBONATE 25 MEQ EFFERVESCENT TAB PO SCH (08:59)
[2016-08-16] MEDS: ACETAMINOPHEN/HYDROcodone 325 MG/7.5 MG TAB PO PRN ×3 (09:05→20:38)
--- NOTE | 2016-08-16 11:46 | HHI.FPPN ---
Subjective Remarks Overnight, patient had a elevated maximum temperature of 99.9F, pulse range from 60s to 100, blood pressure ranged from 98-138/50s to 60s, otherwise afebrile with vital signs stable. Patient reports that she still has some burning feeling of the surface of her skin where her wound VAC is leaking. Patient denies any subjective fever, which she reports is a very distinct feeling for her, chills, nausea, vomiting, chest pain, shortness of breath. Patient reports she is still eating a little bit and there is a little bit of pain at the PICC line site, but it seems to be functioning well. (Jovani Sebastian MD R1) Objective Vitals Vital Signs Date Time Temp Pulse Resp B/P Pulse Ox O2 Delivery O2 Flow Rate FiO2 08/16/16 08:00 97.4 88 17 111/58 95 08/16/16 00:00 98.3 94 20 110/57 93 08/15/16 20:00 99.9 108 18 117/58 93 08/15/16 16:00 99.4 67 18 138/61 93 08/15/16 14:32 20 08/15/16 12:00 99.6 98 20 107/55 94 I/O 08/15/16 08/15/16 08/15/16 08/16/16 08/16/16 08/16/16 07:00 15:00 23:00 07:00 15:00 23:00 Intake Total 240 ml 60 ml 480 ml 877 ml Output Total 550 ml 775 ml 725 ml 900 ml Balance -310 ml -715 ml -245 ml -23 ml Intake Oral 240 ml 60 ml 480 ml 120 ml TPN/PPN 545 ml Lipid 212 ml Output Urine Total 500 ml 750 ml 725 ml 900 ml Drainage Total 50 ml 25 ml # Bowel Movements 0 0 0 0 (Jovani Sebastian MD R1) Result Diagram: 08/16/16 0440 08/16/16 0440 Imaging Last Impressions Chest X-Ray 08/15/16 0000 Signed Impressions: Service Date/Time: Monday, August 15, 2016 16:48 - CONCLUSION: Stable appearance with discoid atelectasis and no evidence of acute pneumonia. Jovani Forte MD Abdomen/Pelvis CT 07/28/16 0735 Signed Impressions: Service Date/Time: Thursday, July 28, 2016 09:50 - CONCLUSION: 1. There is diffuse and extensive subcutaneous emphysema around the abdominal wall from patient's right lateral abdominal wall all the way across midline to the left lateral abdominal wall. 2. There appears to be of fluid collection in the anterior left abdominal wall suspicious for a subcutaneous abscess. There is nonspecific edema throughout the subcutaneous tissues of the abdominal wall. 3. No acute intra-abdominal/pelvic pathology. Fred Solis MD Objective Remarks GENERAL: NAD, lying in bed, in no acute distress, with wound care team at bedside, who just finished cleaning and modifying her wound VAC SKIN: Warm and dry. Patient with ostomy bag and wound VAC covering repaired fistula, with thick yellow output from ostomy and yellow liquid leaking from inferior-lateral aspect of dressing overlying wound VAC. Around this area of moisture/leak, on the inferior-lateral aspect of her abdomen and inferior- lateral aspect of her pannus, there is warmth, erythema to the point of appearing excoriated, at the lateral aspect of her LLQ pannus that that is currently dry. However, around the medial aspect of the wound, there is decreasing/improving erythema surrounding wound site. There is a 1' x 1' backwards L-shaped incision extending from her midline to her right lower quadrant held together by sutures. In the middle of the midline incision, area of wound dehiscence with improving surrounding erythema covered by black sponge and connected to Wound VAC. On pts lower lateral back there is an area about 7"x8" of erythema likely skin irritation from leaking ostomy, covered in cream. HEENT: Normocephalic. Atraumatic. EOMI. No scleral icterus. No injection or drainage. No nasal drainage. Moist mucous membranes. CARDIOVASCULAR: Regular rate and rhythm without murmurs, gallops, or rubs RESPIRATORY: Anterior and lateral lung ballard auscultated as pt movement limited due to pain, clear to auscultation. No accessory muscle use. GASTROINTESTINAL: Abdomen obese. See skin above. Patient reports that she is tender to palpation around the left lower quadrant wound. + bowel sounds. MUSCULOSKELETAL: No pitting edema of bilateral lower extremities. No calf tenderness. NEURO: Awake and alert. 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 cna pct grossly intact. 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 Discharge Planning D/C pending clearance by general surgery. Time frame is unclear. raul Oliver (Jovani Sebastian MD R1) Attending Attestation Patient seen and examined with the resident team. Case reviewed and discussed Agree with plan of care as discussed with me and documented in the resident note. (Cassy Oliver MD) Problem List: (1) Enterocutaneous fistula Status: Acute Plan: Patient with significant abscess of abdominal wall and enterocutaneous fistula on admission. General Surgery Consulted, appreciate recommendations and interventions WBC stable at 5.0 today. Platelets still elevated at 468 today, likely as an acute phase reactant. Status post incision and drainage and washout of left abdominal wall, with wound vac placement due to small bowel fistulae on 07/28. Patient with persistent wound drainage despite several wound VAC changes. Initiated PICC line and TPN to help reduce drainage and promote wound healing, this has been cleared by general surgery. Wound VAC changed at bedside today, by wound care team. -Pain control with [place] 7.5325 Q4hrs prn pain 610, morphine 2 mg IV q3h prn breakthrough, hold if SBP < 110 or DBP < 60 -Blood cultures no growth for 5 days -If pt has additional fevers consider blood culture, wound culture, antibiotics to cover for abdominal infection Imaging 07/28 - Abdomen/Pelvis CT: Diffuse and extensive subcutaneous emphysema around the abdominal wall from patient's right lateral abdominal wall across midline to left lateral abdominal wall. Fluid collection in anterior left abdominal wall suspicious for subcutaneous abscess. Nonspecific edema throughout subcutaneous tissues. No acute intra-abdominal or pelvic pathology. Prior antibiotics: - Vancomycin, pharm consult (07/28-08/13) - Cefepime 2gm IV q8h (07/28-08/13) - Flagyl 500 mg IV q6h (07/28-08/13) (2) Skin rash Status: Acute Plan: See physical exam regarding skin findings -Wound VAC modified earlier today by wound care team -Continue to monitor drainage from fistula -Wound care consulted and appreciated -Will hopefully improve with dietary changes: PICC line, TPN (3) Anemia Status: Acute Plan: - Hgb on admission 6.8, s/p 4 units on 07/28 - H&H 10.1 and 30.6, respectively today - Continue to monitor - Iron panel significant for anemia of chronic disease - B12 and Folate both elevated - GI consulted, appreciate recommendations. - No indication of GI bleed at this time. If H&H drops we'll consider EGD versus colonoscopy versus a bleeding scan - PPI: Protonix 40 mg IV daily - Transfuse as needed (4) Lower extremity edema Status: Resolved Plan: Resolved Patient with no pitting edema of bilateral lower extremities on exam. - SCDs - 20 mg Lasix po daily, 25 meq potassium (5) Nutrition, metabolism, and development symptoms Status: Acute Plan: Fluids: None at this time, will consider starting depending on how pt tolerates TPN Electrolytes: Electrolytes within normal limits, continue to monitor and replete as necessary Nutrition: TPN and regular basic diet DVT PPX: SCDs and Lovenox; risk of DVT and PE greater than risk for chronic wound bleeding GI PPX: Pepcid, Annette-Colace, lactobacillus probiotic to repopulate gut donna (Jovani Sebastian MD R1) Problem Qualifiers (1) Anemia: Qualified Code: D64.9 - Anemia, unspecified type Jovani Sebastian MD R1 Aug 16, 2016 11:46 Cassy Oliver MD Aug 20, 2016 09:08
[2016-08-16 12:00] VITALS: BP 116/76; PULSE 96; RESP 17; TEMP 97.6; O2SAT 97
[2016-08-16] MEDS: HYDROmorphone HCL PF 1 MG/ML VIAL IV PRN (13:39)
[2016-08-16] MEDS: ENOXAPARIN SODIUM 40 MG/0.4 ML SYRINGE SQ SCH (14:20)
[2016-08-16 16:00] VITALS: BP 106/55; PULSE 100; RESP 17; TEMP 98.1; O2SAT 94
[2016-08-16 20:00] VITALS: BP 106/55; PULSE 97; RESP 16; TEMP 98.2; O2SAT 93
[2016-08-16] MEDS: CLINIMIX E 5/25 2000 mL- >42 mls/hr IV-CENTRAL SCH ×3 (20:37)
[2016-08-16] MEDS: PRAMIPEXOLE DIHYDROCHLORIDE 0.25 MG TAB PO SCH (20:38)
[2016-08-16] MEDS: ZOLPIDEM TARTRATE 5 MG TAB PO PRN (23:29)
[2016-08-17] VITALS: BP 107/55; PULSE 96; RESP 18; TEMP 97.7; O2SAT 93
[2016-08-17 06:27] LABS: AUTOMATED NEUTROPHIL # 3.3 TH/MM3 (1.8-7.7); BASOPHIL # 0.1 TH/MM3 (0-0.2); EOSINOPHIL # 0.4 TH/MM3 (0-0.4); EOSINOPHIL % 6.6 % (0.0-4.0); LYMPH % 24.3 % (9.0-44.0); LYMPHOCYTE # 1.4 TH/MM3 (1.0-4.8); MEAN CELL VOLUME 84.2 FL (80.0-100.0); MEAN CORPUSCULAR HEMOGLOBIN 27.3 PG (27.0-34.0); MEAN CORPUSCULAR HGB CONC 32.4 % (32.0-36.0); MONO % 12.4 % (0.0-8.0); NEUT % 55.7 % (16.0-70.0); PLATELET COUNT 452 TH/MM3 (150-450); RED BLOOD COUNT 3.68 MIL/MM3 (4.00-5.30); RED CELL DISTRIBUTION WIDTH 16.9 % (11.6-17.2)
[2016-08-17 06:28] LABS: HEMO FLAGS AUTO DIFF
[2016-08-17 06:43] LABS: BICARBONATE 31.7 MEQ/L (21.0-32.0); POTASSIUM 4.6 MEQ/L (3.5-5.1)
[2016-08-17 08:00] VITALS: BP 107/59; PULSE 82; RESP 16; TEMP 98.4; O2SAT 97
[2016-08-17 08:05] LABS: BANDS 6 % (0-6); EOSINOPHILS 7 % (0-4); MYELOCYTES 2 % (0-0); PLATELET ESTIMATE SMEAR HIGH (NORMAL); PLATELET MORPHOLOGY NORMAL (NORMAL); POLYS (SEG NEUTROPHILS) 42 % (16-70); SCAN/DIFF FINAL DIFF MANUAL; WBC DIFF SAMPLE 100
[2016-08-17] MEDS: ACETAMINOPHEN/HYDROcodone 325 MG/7.5 MG TAB PO PRN ×3 (08:45→21:45)
[2016-08-17] MEDS: FUROSEMIDE 20 MG TAB PO SCH (08:45)
[2016-08-17] MEDS: LACTOBACILLUS ACIDOPHILUS TAB PO SCH ×3 (08:45→18:00)
[2016-08-17] MEDS: DOCUSATE SODIUM 50 MG/SENNA 8.6 MG TAB PO SCH (08:46)
[2016-08-17] MEDS: SODIUM CHLORIDE 0.9% FLUSH 5 ML FLUSH IVF SCH ×2 (08:46→20:36)
[2016-08-17] MEDS: BISACODYL 10 MG SUPP RECTAL SCH (08:46)
[2016-08-17] MEDS: POTASSIUM BICARBONATE 25 MEQ EFFERVESCENT TAB PO SCH (08:46)
[2016-08-17] MEDS: FAMOTIDINE 20 MG TAB PO SCH ×2 (09:00→20:36)
[2016-08-17] MEDS ORDERED: GLYCERIN ADULT 2 GM SUPP RECTAL PRN (11:00)
--- NOTE | 2016-08-17 11:00 | HHI.FPPN ---
Subjective Remarks No acute events overnight. Afebrile vital signs stable overnight. Wound care team has already been in to see the patient this morning to modify her wound VAC. Patient is feeling well. She denies any fever, chills, nausea, vomiting, shortness of breath, chest pain, abdominal pain besides the raw skin inferior and lateral to her wound VAC, which is improving. She also reports that she is passing gas but not moving her bowels as well as she would like. (Jovani Sebastian MD R1) Objective Vitals Vital Signs Date Time Temp Pulse Resp B/P Pulse Ox O2 Delivery O2 Flow Rate FiO2 08/17/16 08:00 98.4 82 16 107/59 97 08/17/16 00:00 97.7 96 18 107/55 93 08/16/16 22:15 18 08/16/16 20:00 98.2 97 16 106/55 93 08/16/16 16:00 98.1 100 17 106/55 94 08/16/16 14:09 20 08/16/16 12:00 97.6 96 17 116/76 97 I/O 08/16/16 08/16/16 08/16/16 08/17/16 08/17/16 08/17/16 07:00 15:00 23:00 07:00 15:00 23:00 Intake Total 877 ml 240 ml 956 ml 902 ml Output Total 900 ml 925 ml 675 ml 210 ml Balance -23 ml -685 ml 281 ml 692 ml Intake Oral 120 ml 240 ml 360 ml 120 ml IV Total 0 ml 0 ml TPN/PPN 545 ml 596 ml 782 ml Lipid 212 ml Output Urine Total 900 ml 800 ml 550 ml 200 ml Drainage Total 125 ml 125 ml 10 ml # Bowel Movements 0 0 0 0 (Jovani Sebastian MD R1) Result Diagram: 08/17/16 0620 08/17/16 0620 Objective Remarks GENERAL: NAD, lying in bed, in no acute distress, with wound care team at bedside, who just finished cleaning and modifying her wound VAC SKIN: Warm and dry. Patient with ostomy bag and wound VAC covering repaired fistula, with minimal output from ostomy and no leak from occlusive dressing overlying wound VAC. On the inferior-lateral aspect of her abdomen and inferior- lateral aspect of her pannus, there is decreasing/improving warmth, erythema, tenderness at the lateral aspect of her LLQ pannus that that is currently dry. Furthermore, around the medial aspect of the wound, there is decreasing/ improving erythema surrounding wound site. There is a 1' x 1' backwards L- shaped incision extending from her midline to her right lower quadrant held together by sutures. In the middle of the midline incision, area of wound dehiscence with improving surrounding erythema covered by black sponge and connected to Wound VAC. On pts lower lateral back there is an area about 7"x8" of erythema with surrounding petechia, likely skin irritation from leaking ostomy. Peripheral IV and PICC line in place in left arm. HEENT: Normocephalic. Atraumatic. EOMI. No scleral icterus. No injection or drainage. No nasal drainage. Moist mucous membranes. CARDIOVASCULAR: Regular rate and rhythm without murmurs, gallops, or rubs RESPIRATORY: Anterior and lateral lung ballard auscultated as pt movement limited due to pain, clear to auscultation. No accessory muscle use. GASTROINTESTINAL: Abdomen obese. See skin above. Patient reports that she is tender to palpation around the left lower quadrant wound. + bowel sounds. MUSCULOSKELETAL: No pitting edema of bilateral lower extremities. No calf tenderness. NEURO: Awake and alert. 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 virologist grossly intact. 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 Discharge Planning D/C pending clearance by general surgery. Time frame is unclear. raul Oliver (Jovani Sebastian MD R1) Attending Attestation Patient seen and examined with the resident team. Case reviewed and discussed Agree with plan of care as discussed with me and documented in the resident note. (Cassy Oliver MD) Problem List: (1) Enterocutaneous fistula Status: Acute Plan: Patient with significant abscess of abdominal wall and enterocutaneous fistula on admission. General Surgery Consulted, appreciate recommendations and interventions WBC stable at 6.0 today. Platelets still elevated at 464 today, likely as an acute phase reactant. Status post incision and drainage and washout of left abdominal wall, with wound vac placement due to small bowel fistulae on 07/28. Patient with persistent wound drainage despite several wound VAC changes. Initiated PICC line and TPN to help reduce drainage and promote wound healing, this has been cleared by general surgery. Wound VAC changed at bedside today, by wound care team. -Pain control with [place] 7.5325 Q4hrs prn pain 610, morphine 2 mg IV q3h prn breakthrough, hold if SBP < 110 or DBP < 60 -Blood cultures no growth for 5 days -If pt has additional fevers consider blood culture, wound culture, antibiotics to cover for abdominal infection Imaging 07/28 - Abdomen/Pelvis CT: Diffuse and extensive subcutaneous emphysema around the abdominal wall from patient's right lateral abdominal wall across midline to left lateral abdominal wall. Fluid collection in anterior left abdominal wall suspicious for subcutaneous abscess. Nonspecific edema throughout subcutaneous tissues. No acute intra-abdominal or pelvic pathology. Prior antibiotics: - Vancomycin, pharm consult (07/28-08/13) - Cefepime 2gm IV q8h (07/28-08/13) - Flagyl 500 mg IV q6h (07/28-08/13) (2) Skin rash Status: Acute Plan: See physical exam regarding skin findings. Improving today since starting TPN through PICC line. -Wound VAC modified earlier today by wound care team -Continue to monitor drainage from fistula -Wound care consulted and appreciated - (3) Physical deconditioning Status: Acute Plan: Patient physically deconditioned after staying in bed for extended period of time. Patient had [place] removed 08/16/16. Having difficulty with bedpan. Wants to get a bedside commode. Nursing order to get patient out of bed at least 3 times a day as tolerated with assist (4) Anemia Status: Acute Plan: - Hgb on admission 6.8, s/p 4 units on 07/28 - H&H 10.0 and 31.0, respectively today - Continue to monitor - Iron panel significant for anemia of chronic disease - B12 and Folate both elevated - GI consulted, appreciate recommendations. - No indication of GI bleed at this time. If H&H drops we'll consider EGD versus colonoscopy versus a bleeding scan - PPI: Protonix 40 mg IV daily - Transfuse as needed (5) Lower extremity edema Status: Resolved Plan: Resolved Patient with no pitting edema of bilateral lower extremities on exam. - SCDs - 20 mg Lasix po daily, 25 meq potassium (6) Nutrition, metabolism, and development symptoms Status: Acute Plan: Fluids: None at this time, will consider starting depending on how pt tolerates TPN Electrolytes: Electrolytes within normal limits, continue to monitor and replete as necessary Nutrition: TPN and regular basic diet DVT PPX: SCDs and Lovenox; risk of DVT and PE greater than risk for chronic wound bleeding GI PPX: Pepcid, Annette-Colace, lactobacillus probiotic to repopulate gut donna (Jovani Sebastian MD R1) Problem Qualifiers (1) Anemia: Qualified Code: D64.9 - Anemia, unspecified type Jovani Sebastian MD R1 Aug 17, 2016 10:59 Cassy Oliver MD Aug 20, 2016 09:08
[2016-08-17 12:00] VITALS: BP 111/66; PULSE 103; RESP 17; TEMP 97.7; O2SAT 97
--- NOTE | 2016-08-17 14:14 | HHI.PR ---
Subjective Subjective Notes DAILY PROGRESS NOTE FOR SURGICAL ATTENDING, DR. LANDRY VELEZ VAC wound changed today Reports things are looking good Better granulation tissue Objective Vitals/I&O Vital Signs Date Time Temp Pulse Resp B/P Pulse Ox O2 Delivery O2 Flow Rate FiO2 08/17/16 12:00 97.7 103 17 111/66 97 Labs Laboratory Tests Test 08/17/16 06:20 White Blood Count 6.0 Red Blood Count 3.68 Hemoglobin 10.0 Hematocrit 31.0 Mean Corpuscular Volume 84.2 Mean Corpuscular Hemoglobin 27.3 Mean Corpuscular Hemoglobin 32.4 Concent Red Cell Distribution Width 16.9 Platelet Count 452 Mean Platelet Volume 6.5 Neutrophils (%) (Auto) 55.7 Lymphocytes (%) (Auto) 24.3 Monocytes (%) (Auto) 12.4 Eosinophils (%) (Auto) 6.6 Basophils (%) (Auto) 1.0 Neutrophils # (Auto) 3.3 Lymphocytes # (Auto) 1.4 Monocytes # (Auto) 0.7 Eosinophils # (Auto) 0.4 Basophils # (Auto) 0.1 CBC Comment AUTO DIFF Differential Total Cells 100 Counted Neutrophils % (Manual) 42 Band Neutrophils % 6 Lymphocytes % 32 Monocytes % 11 Eosinophils % 7 Neutrophils # (Manual) 3.0 Myelocytes 2 Differential Comment FINAL DIFF MANUAL Platelet Estimate HIGH Platelet Morphology Comment NORMAL Sodium Level 136 Potassium Level 4.6 Chloride Level 98 Carbon Dioxide Level 31.7 Anion Gap 6 Blood Urea Nitrogen 17 Creatinine 0.48 Estimat Glomerular Filtration 129 Rate Random Glucose 167 Calcium Level 8.6 Radiology Narrative Exam VAC dressing intact Discussed with Jane VAC therapy nurse Better granulation tissue A/P Problem List: (1) Enterocutaneous fistula (2) Subcutaneous abscess (3) Abscess of abdominal wall Assessment and Plan 65-year-old female who recently had exploration in [place] with 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
[2016-08-17 16:00] VITALS: BP 108/58; PULSE 97; RESP 17; TEMP 97; O2SAT 93
[2016-08-17] MEDS: ENOXAPARIN SODIUM 40 MG/0.4 ML SYRINGE SQ SCH (16:34)
[2016-08-17 20:00] VITALS: BP 113/59; PULSE 100; RESP 20; TEMP 99.1; O2SAT 98
[2016-08-17] MEDS: PRAMIPEXOLE DIHYDROCHLORIDE 0.25 MG TAB PO SCH (20:36)
[2016-08-17] MEDS: CLINIMIX E 5/25 2000 mL- >42 mls/hr IV-CENTRAL SCH ×3 (22:00)
[2016-08-17] MEDS: ZOLPIDEM TARTRATE 5 MG TAB PO PRN (22:46)
[2016-08-18] VITALS: BP 110/62; PULSE 92; RESP 20; TEMP 98.8; O2SAT 96
[2016-08-18] MEDS: ACETAMINOPHEN/HYDROcodone 325 MG/7.5 MG TAB PO PRN ×5 (01:59→23:17)
[2016-08-18 05:34] LABS: AUTOMATED NEUTROPHIL # 4.1 TH/MM3 (1.8-7.7); BASOPHIL % 0.4 % (0.0-2.0); EOSINOPHIL # 0.4 TH/MM3 (0-0.4); EOSINOPHIL % 6.5 % (0.0-4.0); HEMATOCRIT 30.4 % (35.0-46.0); LYMPH % 20.9 % (9.0-44.0); LYMPHOCYTE # 1.4 TH/MM3 (1.0-4.8); MEAN CELL VOLUME 83.8 FL (80.0-100.0); MEAN CORPUSCULAR HEMOGLOBIN 27.2 PG (27.0-34.0); MEAN CORPUSCULAR HGB CONC 32.5 % (32.0-36.0); MONO % 10.8 % (0.0-8.0); NEUT % 61.4 % (16.0-70.0); PLATELET COUNT 464 TH/MM3 (150-450); RED BLOOD COUNT 3.63 MIL/MM3 (4.00-5.30); RED CELL DISTRIBUTION WIDTH 16.6 % (11.6-17.2); WHITE BLOOD COUNT 6.6 TH/MM3 (4.0-11.0)
[2016-08-18 05:41] LABS: HEMO FLAGS AUTO DIFF
[2016-08-18 06:01] LABS: ANION GAP 8 MEQ/L (5-15); AST (GOT) 15 U/L (15-37); BICARBONATE 31.4 MEQ/L (21.0-32.0); BLOOD UREA NITROGEN 19 MG/DL (7-18); CHLORIDE 98 MEQ/L (98-107); GLOMERULAR FILTRATION RATE 139 ML/MIN (>89); POTASSIUM 4.3 MEQ/L (3.5-5.1); SODIUM (NA) 137 MEQ/L (136-145)
[2016-08-18 06:14] LABS: ALKALINE PHOSPHATASE 151 U/L (45-117); ALT (GPT) 18 U/L (10-53); TOTAL BILIRUBIN ADULT 0.2 MG/DL (0.2-1.0)
[2016-08-18 08:00] VITALS: BP 109/55; PULSE 84; RESP 20; TEMP 97.3; O2SAT 99
[2016-08-18 08:10] LABS: BANDS 2 % (0-6); EOSINOPHILS 10 % (0-4); MYELOCYTES 1 % (0-0); NEUTROPHIL # MANUAL DIFF 3.6 TH/MM3 (1.8-7.7); PLATELET ESTIMATE SMEAR HIGH (NORMAL); PLATELET MORPHOLOGY NORMAL (NORMAL); POLYS (SEG NEUTROPHILS) 51 % (16-70); SCAN/DIFF FINAL DIFF MANUAL; WBC DIFF SAMPLE 100
[2016-08-18] MEDS: FUROSEMIDE 20 MG TAB PO SCH (08:33)
[2016-08-18] MEDS: FAMOTIDINE 20 MG TAB PO SCH ×2 (08:33→23:17)
[2016-08-18] MEDS: LACTOBACILLUS ACIDOPHILUS TAB PO SCH ×3 (08:34→18:29)
[2016-08-18] MEDS: POTASSIUM BICARBONATE 25 MEQ EFFERVESCENT TAB PO SCH (08:34)
[2016-08-18] MEDS: SODIUM CHLORIDE 0.9% FLUSH 5 ML FLUSH IVF SCH ×2 (08:34→23:19)
[2016-08-18] MEDS: DOCUSATE SODIUM 50 MG/SENNA 8.6 MG TAB PO SCH (08:34)
[2016-08-18] MEDS: BISACODYL 10 MG SUPP RECTAL PRN (09:27)
--- NOTE | 2016-08-18 11:43 | HHI.FPPN ---
Subjective Remarks No acute events overnight except for the patient's wound VAC continued to leak. Patient afebrile with vital signs stable overnight. Patient endorses having bowel movements. Patient denies any fever, chills, nausea, vomiting, chest pain , shortness of breath, lower extremity pain or swelling. Patient reports some burning, raw, irritated feeling of her skin around the wound VAC leak. Patient reported that she was out of bed to chair for 40 minutes since yesterday. ( Jvoani Sebastian MD R1) Objective Vitals Vital Signs Date Time Temp Pulse Resp B/P Pulse Ox O2 Delivery O2 Flow Rate FiO2 08/18/16 08:00 97.3 84 20 109/55 99 08/18/16 00:00 98.8 92 20 110/62 96 08/17/16 20:00 99.1 100 20 113/59 98 08/17/16 16:00 97.0 97 17 108/58 93 08/17/16 12:00 97.7 103 17 111/66 97 I/O 08/17/16 08/17/16 08/17/16 08/18/16 08/18/16 08/18/16 07:00 15:00 23:00 07:00 15:00 23:00 Intake Total 902 ml 720 ml 1217 ml 120 ml Output Total 210 ml 650 ml 500 ml Balance 692 ml 70 ml 717 ml 120 ml Intake Oral 120 ml 720 ml 240 ml 120 ml IV Total 0 ml TPN/PPN 782 ml 977 ml Output Urine Total 200 ml 650 ml 500 ml Drainage Total 10 ml # Voids 5 # Bowel Movements 0 0 0 (Jovani Sebastian MD R1) Result Diagram: 08/18/16 0525 08/18/16 0525 Objective Remarks GENERAL: NAD, lying in bed, in no acute distress, with wound care team at bedside, who just finished cleaning and modifying her wound VAC SKIN: Warm and dry. Patient with ostomy bag and wound VAC covering repaired fistula, with yellow output from ostomy and yellow liquid leaking from the inferior-lateral aspect of dressing overlying wound VAC. Around this area of moisture/leak, on the inferior-lateral aspect of her abdomen/pannus, there is warmth, worsening erythema that is currently moist with yellow liquid. However, around the medial aspect of the wound, there is decreasing/improving erythema surrounding wound site. There is a 1' x 1' backwards L-shaped incision extending from her midline to her right lower quadrant held together by sutures. In the middle of the midline incision, area of wound dehiscence with improving surrounding erythema covered by black sponge and connected to Wound VAC. On pts lower lateral back there is an area about 7"x8" of erythema/purpura likely skin irritation. Peripheral IV and PICC line in place in left arm. HEENT: Normocephalic. Atraumatic. EOMI. No scleral icterus. No injection or drainage. No nasal drainage. Moist mucous membranes. CARDIOVASCULAR: Regular rate and rhythm without murmurs, gallops, or rubs RESPIRATORY: Anterior and lateral lung ballard auscultated as pt movement limited due to pain, clear to auscultation. No accessory muscle use. GASTROINTESTINAL: Abdomen obese. See skin above. Patient reports that she is tender to palpation around the left lower quadrant wound. + bowel sounds. MUSCULOSKELETAL: No pitting edema of bilateral lower extremities. No calf tenderness. NEURO: Awake and alert. 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 product safety coordinator grossly intact. 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 Discharge Planning D/C pending clearance by general surgery. Time frame is unclear. raul Oliver (Jovani Sebastian MD R1) Attending Attestation Patient seen and examined with the resident team. Case reviewed and discussed Agree with plan of care as discussed with me and documented in the resident note. (Cassy Oliver MD) Problem List: (1) Enterocutaneous fistula Status: Acute Plan: Patient with significant abscess of abdominal wall and enterocutaneous fistula on admission. General Surgery Consulted, appreciate recommendations and interventions WBC stable at 6.0 today. Platelets still elevated at 464 today, likely as an acute phase reactant. Status post incision and drainage and washout of left abdominal wall, with wound vac placement due to small bowel fistulae on 07/28. Patient with persistent wound drainage despite several wound VAC changes. Initiated PICC line and TPN to help reduce drainage and promote wound healing, this has been cleared by general surgery. Wound VAC changed at bedside yesterday, by wound care team. -Pain control with [facility] 7.5325 Q4hrs prn pain 610, morphine 2 mg IV q3h prn breakthrough, hold if SBP < 110 or DBP < 60 -Blood cultures no growth for 5 days -If pt has additional fevers consider blood culture, wound culture, antibiotics to cover for abdominal infection Imaging 07/28 - Abdomen/Pelvis CT: Diffuse and extensive subcutaneous emphysema around the abdominal wall from patient's right lateral abdominal wall across midline to left lateral abdominal wall. Fluid collection in anterior left abdominal wall suspicious for subcutaneous abscess. Nonspecific edema throughout subcutaneous tissues. No acute intra-abdominal or pelvic pathology. Prior antibiotics: - Vancomycin, pharm consult (07/28-08/13) - Cefepime 2gm IV q8h (07/28-08/13) - Flagyl 500 mg IV q6h (07/28-08/13) (2) Skin rash Status: Acute Plan: See physical exam regarding skin findings. Was improving yesterday since starting TPN through PICC line, but worse today given leak in occlusive dressing covering wound VAC. -Wound VAC modified yesterday by wound care team -Continue to monitor drainage from fistula -Wound care consulted and appreciated -Consider changing diet from reg basic and TPN to TPN only (3) Physical deconditioning Status: Acute Plan: Patient physically deconditioned after staying in bed for extended period of time. Patient had Rush removed 08/16/16. Having difficulty with bedpan. Wants to get a bedside commode. Nursing order to get patient out of bed at least 3 times a day as tolerated with assist (4) Anemia Status: Acute Plan: - Hgb on admission 6.8, s/p 4 units on 07/28 - H&H 9.9 and 30.4, respectively today - Continue to monitor - Iron panel significant for anemia of chronic disease - B12 and Folate both elevated - GI consulted, appreciate recommendations. - No indication of GI bleed at this time. If H&H drops we'll consider EGD versus colonoscopy versus a bleeding scan - PPI: Protonix 40 mg IV daily - Transfuse as needed (5) Lower extremity edema Status: Resolved Plan: Resolved Patient with no pitting edema of bilateral lower extremities on exam. - SCDs - 20 mg Lasix po daily, 25 meq potassium (6) Nutrition, metabolism, and development symptoms Status: Acute Plan: Fluids: None at this time, will consider starting depending on how pt tolerates TPN Electrolytes: Electrolytes within normal limits, continue to monitor and replete as necessary Nutrition: TPN and regular basic diet DVT PPX: SCDs and Lovenox; risk of DVT and PE greater than risk for chronic wound bleeding GI PPX: Pepcid, Annette-Colace, lactobacillus probiotic to repopulate gut donna (Jovani Sebastian MD R1) Problem Qualifiers (1) Anemia: Qualified Code: D64.9 - Anemia, unspecified type Jovani Sebastian MD R1 Aug 18, 2016 11:42 Cassy Oliver MD Aug 20, 2016 09:08
[2016-08-18 11:45] VITALS: BP 113/54; PULSE 84; RESP 19; TEMP 97.9; O2SAT 99
[2016-08-18] MEDS: ENOXAPARIN SODIUM 40 MG/0.4 ML SYRINGE SQ SCH (13:57)
[2016-08-18 14:00] VITALS: BP 117/57; PULSE 94; RESP 17; TEMP 98.6; O2SAT 100
--- NOTE | 2016-08-18 15:07 | HHI.PR ---
Subjective Subjective Notes Tolerating diet No complaints VAC leaking; fixed by nurse Objective Vitals/I&O Vital Signs Date Time Temp Pulse Resp B/P Pulse Ox O2 Delivery O2 Flow Rate FiO2 08/18/16 11:45 97.9 84 19 113/54 99 Labs Laboratory Tests Test 08/18/16 05:25 White Blood Count 6.6 Red Blood Count 3.63 Hemoglobin 9.9 Hematocrit 30.4 Mean Corpuscular Volume 83.8 Mean Corpuscular Hemoglobin 27.2 Mean Corpuscular Hemoglobin 32.5 Concent Red Cell Distribution Width 16.6 Platelet Count 464 Mean Platelet Volume 6.7 Neutrophils (%) (Auto) 61.4 Lymphocytes (%) (Auto) 20.9 Monocytes (%) (Auto) 10.8 Eosinophils (%) (Auto) 6.5 Basophils (%) (Auto) 0.4 Neutrophils # (Auto) 4.1 Lymphocytes # (Auto) 1.4 Monocytes # (Auto) 0.7 Eosinophils # (Auto) 0.4 Basophils # (Auto) 0.0 CBC Comment AUTO DIFF Differential Total Cells 100 Counted Neutrophils % (Manual) 51 Band Neutrophils % 2 Lymphocytes % 21 Monocytes % 15 Eosinophils % 10 Neutrophils # (Manual) 3.6 Myelocytes 1 Differential Comment FINAL DIFF MANUAL Platelet Estimate HIGH Platelet Morphology Comment NORMAL Sodium Level 137 Potassium Level 4.3 Chloride Level 98 Carbon Dioxide Level 31.4 Anion Gap 8 Blood Urea Nitrogen 19 Creatinine 0.45 Estimat Glomerular Filtration 139 Rate Random Glucose 182 Calcium Level 8.8 Total Bilirubin 0.2 Aspartate Amino Transf 15 (AST/SGOT) Alanine Aminotransferase 18 (ALT/SGPT) Alkaline Phosphatase 151 Total Protein 6.3 Albumin 2.0 Radiology Lungs: Clear Abdomen: Non-tender Extremities: No edema A/P Problem List: (1) Enterocutaneous fistula (2) Subcutaneous abscess (3) Abscess of abdominal wall Assessment and Plan A/P Problem List: (1) Enterocutaneous fistula (2) Subcutaneous abscess (3) Abscess of abdominal wall Assessment and Plan 65-year-old female who recently had exploration in [place] with 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
[2016-08-18 20:22] VITALS: BP 109/61; PULSE 94; RESP 18; TEMP 99.4; O2SAT 97
[2016-08-18] MEDS: PRAMIPEXOLE DIHYDROCHLORIDE 0.25 MG TAB PO SCH (23:17)
[2016-08-18] MEDS: CLINIMIX E 5/25 2000 mL- >42 mls/hr IV-CENTRAL SCH ×3 (23:20)
[2016-08-18] MEDS: ZOLPIDEM TARTRATE 5 MG TAB PO PRN (23:25)
[2016-08-19 00:07] VITALS: BP 103/65; PULSE 96; RESP 17; TEMP 98.6; O2SAT 97
[2016-08-19] MEDS: ACETAMINOPHEN/HYDROcodone 325 MG/7.5 MG TAB PO PRN ×3 (06:37→20:48)
[2016-08-19 08:00] VITALS: BP 117/60; PULSE 91; RESP 17; TEMP 98.7; O2SAT 96
[2016-08-19 08:03] LABS: AUTOMATED NEUTROPHIL # 6.8 TH/MM3 (1.8-7.7); BASOPHIL % 0.6 % (0.0-2.0); EOSINOPHIL # 0.4 TH/MM3 (0-0.4); EOSINOPHIL % 4.9 % (0.0-4.0); HEMATOCRIT 31.5 % (35.0-46.0); HEMO FLAGS DIFF FINAL; LYMPH % 10.4 % (9.0-44.0); LYMPHOCYTE # 0.9 TH/MM3 (1.0-4.8); MEAN CELL VOLUME 83.2 FL (80.0-100.0); MEAN CORPUSCULAR HGB CONC 32.4 % (32.0-36.0); NEUT % 75.1 % (16.0-70.0); PLATELET COUNT 456 TH/MM3 (150-450); RED BLOOD COUNT 3.78 MIL/MM3 (4.00-5.30); RED CELL DISTRIBUTION WIDTH 17.2 % (11.6-17.2)
[2016-08-19 08:33] LABS: ALKALINE PHOSPHATASE 162 U/L (45-117); ALT (GPT) 16 U/L (10-53); ANION GAP 9 MEQ/L (5-15); AST (GOT) 14 U/L (15-37); BICARBONATE 30.4 MEQ/L (21.0-32.0); BLOOD UREA NITROGEN 19 MG/DL (7-18); CHLORIDE 97 MEQ/L (98-107); GLOMERULAR FILTRATION RATE 139 ML/MIN (>89); POTASSIUM 4.3 MEQ/L (3.5-5.1); SODIUM (NA) 136 MEQ/L (136-145); TOTAL BILIRUBIN ADULT 0.3 MG/DL (0.2-1.0)
[2016-08-19] MEDS: SODIUM CHLORIDE 0.9% FLUSH 5 ML FLUSH IVF SCH ×2 (09:00→20:53)
[2016-08-19] MEDS: POTASSIUM BICARBONATE 25 MEQ EFFERVESCENT TAB PO SCH (09:00)
[2016-08-19] MEDS: FUROSEMIDE 20 MG TAB PO SCH (09:29)
[2016-08-19] MEDS: FAMOTIDINE 20 MG TAB PO SCH ×2 (09:29→20:48)
[2016-08-19] MEDS: LACTOBACILLUS ACIDOPHILUS TAB PO SCH ×3 (09:29→18:39)
[2016-08-19] MEDS: DOCUSATE SODIUM 50 MG/SENNA 8.6 MG TAB PO SCH (09:31)
--- NOTE | 2016-08-19 10:40 | HHI.PR ---
Subjective Subjective Notes Vac dressing adjacent to ostomy appliance constantly alarming. Pts appetite poor, voids well, having BMs. Objective Vitals/I&O Vital Signs Date Time Temp Pulse Resp B/P Pulse Ox O2 Delivery O2 Flow Rate FiO2 08/19/16 08:00 98.7 91 17 117/60 96 Labs Laboratory Tests Test 08/19/16 07:50 White Blood Count 9.0 Red Blood Count 3.78 Hemoglobin 10.2 Hematocrit 31.5 Mean Corpuscular Volume 83.2 Mean Corpuscular Hemoglobin 27.0 Mean Corpuscular Hemoglobin 32.4 Concent Red Cell Distribution Width 17.2 Platelet Count 456 Mean Platelet Volume 6.7 Neutrophils (%) (Auto) 75.1 Lymphocytes (%) (Auto) 10.4 Monocytes (%) (Auto) 9.0 Eosinophils (%) (Auto) 4.9 Basophils (%) (Auto) 0.6 Neutrophils # (Auto) 6.8 Lymphocytes # (Auto) 0.9 Monocytes # (Auto) 0.8 Eosinophils # (Auto) 0.4 Basophils # (Auto) 0.0 CBC Comment DIFF FINAL Differential Comment Sodium Level 136 Potassium Level 4.3 Chloride Level 97 Carbon Dioxide Level 30.4 Anion Gap 9 Blood Urea Nitrogen 19 Creatinine 0.45 Estimat Glomerular Filtration 139 Rate Random Glucose 135 Calcium Level 8.6 Total Bilirubin 0.3 Aspartate Amino Transf 14 (AST/SGOT) Alanine Aminotransferase 16 (ALT/SGPT) Alkaline Phosphatase 162 Total Protein 6.5 Albumin 2.1 Radiology Abdomen: Other (Dressings reinforced with clear sticky VAC dressings, ultimately placed to continuous wall suction, moderate and disconnected VAC that was alarming. Moderate erythema L lateral abdomen.) A/P Problem List: (1) Enterocutaneous fistula (2) Subcutaneous abscess (3) Abscess of abdominal wall Assessment and Plan Postop AWR, large recurrence, s/p multiple surgeries to try to repair, now has SB fistulae, managing with VAC dressings. Unfortunately, will need to continue to manage complex wounds without further surgery at this point. Problem Qualifiers (1) Subcutaneous abscess: Javier Reeves MD Aug 19, 2016 10:40
--- NOTE | 2016-08-19 11:40 | HHI.FPPN ---
Subjective Remarks Patient seen and examined this morning. She reports that there was continued drainage from ostomy bag covering fistula repair, new dressing was applied this morning. She denies chest pain, difficulty breathing, calf pain. She has not taken much by mouth and does not have much of an appetite. She had several bowel movements overnight which she attributed to taking a suppository. Abdominal pain is stable. Objective Vitals Vital Signs Date Time Temp Pulse Resp B/P Pulse Ox O2 Delivery O2 Flow Rate FiO2 08/19/16 08:00 98.7 91 17 117/60 96 08/19/16 00:07 98.6 96 17 103/65 97 08/18/16 20:22 99.4 94 18 109/61 97 08/18/16 14:00 98.6 94 17 117/57 100 08/18/16 11:45 97.9 84 19 113/54 99 I/O 08/18/16 08/18/16 08/18/16 08/19/16 08/19/16 08/19/16 07:00 15:00 23:00 07:00 15:00 23:00 Intake Total 1217 ml 1545 ml 280 ml 1200 ml Output Total 500 ml 1200 ml 175 ml Balance 717 ml 345 ml 280 ml 1025 ml Intake Oral 240 ml 880 ml 280 ml 240 ml IV Total 960 ml TPN/PPN 977 ml 665 ml Output Urine Total 500 ml 1200 ml Drainage Total 175 ml # Voids 2 3 # Bowel Movements 0 3 1 Result Diagram: 08/19/16 0750 08/19/16 0750 Objective Remarks GENERAL: NAD, lying in bed, in no acute distress SKIN: Warm and dry. Patient with ostomy bag and wound VAC covering repaired fistula, No leakage at this time. Around this area of moisture/leak, on the inferior-lateral aspect of her abdomen/pannus, there is warmth, worsening erythema. Around the medial aspect of the wound, there is improving erythema surrounding wound site. There is a 1' x 1' incision extending from her midline to her right lower quadrant, no surrounding edema or erythema. In the middle of the midline incision, wound vac securely in place. On pts lower lateral back there is an area about 7"x8" of erythema likely skin irritation. Peripheral IV and PICC line in place in left arm. HEENT: Normocephalic. Atraumatic. EOMI. No scleral icterus. No injection or drainage. No nasal drainage. Moist mucous membranes. CARDIOVASCULAR: Regular rate and rhythm without murmurs, gallops, or rubs RESPIRATORY: Anterior and lateral lung ballard auscultated as pt movement limited due to pain, clear to auscultation. No accessory muscle use. GASTROINTESTINAL: Abdomen obese. See skin above. Patient reports that she is tender to palpation around the left lower quadrant wound. + bowel sounds. MUSCULOSKELETAL: No pitting edema of bilateral lower extremities. No calf tenderness. NEURO: Awake and alert. 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 bowling ball finisher grossly intact. 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 Discharge Planning D/C pending clearance by general surgery. Time frame is unclear. wdw Dr. Oliver Problem List: (1) Enterocutaneous fistula Status: Acute Plan: Patient with significant abscess of abdominal wall and enterocutaneous fistula on admission. General Surgery Consulted, appreciate recommendations and interventions WBC stable at 9.0 today. Platelets still elevated at 456 today, likely as an acute phase reactant. Status post incision and drainage and washout of left abdominal wall, with wound vac placement due to small bowel fistulae on 07/28. Patient with persistent wound drainage despite several wound VAC changes. Initiated PICC line and TPN to help reduce drainage and promote wound healing. Wound VAC changed at bedside by wound care team. -Pain control with [place] 7.5325 Q4hrs prn pain 610, morphine 2 mg IV q3h prn breakthrough, hold if SBP < 110 or DBP < 60 -Blood cultures no growth for 5 days -If pt has additional fevers consider blood culture, wound culture, antibiotics to cover for abdominal infection Imaging 07/28 - Abdomen/Pelvis CT: Diffuse and extensive subcutaneous emphysema around the abdominal wall from patient's right lateral abdominal wall across midline to left lateral abdominal wall. Fluid collection in anterior left abdominal wall suspicious for subcutaneous abscess. Nonspecific edema throughout subcutaneous tissues. No acute intra-abdominal or pelvic pathology. Prior antibiotics: - Vancomycin, pharm consult (07/28-08/13) - Cefepime 2gm IV q8h (07/28-08/13) - Flagyl 500 mg IV q6h (07/28-08/13) (2) Skin rash Status: Acute Plan: See physical exam regarding skin findings. Slight improvement since starting TPN through PICC line. -Wound care consulted and appreciated -Wound VAC modifications per wound care team -Continue to monitor drainage from fistula -Consider changing diet from reg basic and TPN to TPN only (3) Physical deconditioning Status: Acute Plan: Patient physically deconditioned after staying in bed for extended period of time. Patient had Rush removed 08/16/16. Having difficulty with bedpan. Wants to get a bedside commode. Nursing order to get patient out of bed at least 3 times a day as tolerated with assistance (4) Anemia Status: Acute Plan: - Hgb on admission 6.8, s/p 4 units on 07/28 - H&H 10.2 and 31.5, respectively today - Continue to monitor - Iron panel significant for anemia of chronic disease - B12 and Folate both elevated (5) Lower extremity edema Status: Resolved Plan: Resolved Patient with no pitting edema of bilateral lower extremities on exam. - SCDs - 20 mg Lasix po daily, 25 meq potassium (6) Nutrition, metabolism, and development symptoms Status: Acute Plan: Fluids: None at this time Electrolytes: Electrolytes within normal limits, continue to monitor and replete as necessary Nutrition: TPN and regular basic diet DVT PPX: SCDs and Lovenox; risk of DVT and PE greater than risk for chronic wound bleeding GI PPX: Pepcid Problem Qualifiers (1) Anemia: Qualified Code: D64.9 - Anemia, unspecified type Sumaya Wheeler MD R2 Aug 19, 2016 11:40
[2016-08-19 12:00] VITALS: BP 103/59; PULSE 101; RESP 18; TEMP 98.4; O2SAT 94
[2016-08-19] MEDS: ENOXAPARIN SODIUM 40 MG/0.4 ML SYRINGE SQ SCH (15:31)
[2016-08-19 16:00] VITALS: BP 143/59; PULSE 105; RESP 19; TEMP 100.2; O2SAT 95
--- NOTE | 2016-08-19 18:06 | HHI.PR ---
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 She presented with abdominal wall abscess, which was treated with long-term, broad-spectrum antibiotics, which has since been discontinued. Pt with another area of wound dehiscence along midline incision that is also connected to wound VAC; this seems to be healing well. However, the chronic wound continues to leak. The yellow liquid fecal matter coming from her ostomy disrupts the adhesive, occlusive dressings covering the wound VAC over the LLQ of her abdomen and leaks onto her skin. The leak prevents the wound VAC from helping to close her wound, and the skin irritation from the leak is her chief complaint since I have known this patient. Wound care team and general surgery see the patient about every other day to modify the wound VAC and try to stop the leak, but it keeps leaking. As a result, pt has recently had PICC line placed, so she can be on TPN to increase nutrition for wound healing and to decrease ostomy output; she also has a regular basic diet. However, the leak persists. Consider stopping her oral diet entirely. Continue to modify wound VACs per wound care and general surgery. Jovani Sebastian MD R1 Aug 19, 2016 18:06
[2016-08-19 20:27] VITALS: BP 159/53; PULSE 100; RESP 18; TEMP 100.1; O2SAT 94
[2016-08-19] MEDS: PRAMIPEXOLE DIHYDROCHLORIDE 0.25 MG TAB PO SCH (20:48)
[2016-08-19] MEDS: FAT EMULSION 20% INJ 250 ML (Twice weekly over 8 hours) IV-CENTRAL SCH (20:53)
[2016-08-19] MEDS: CLINIMIX E 5/25 2000 mL- >42 mls/hr IV-CENTRAL SCH ×3 (20:54)
[2016-08-20] MEDS: ZOLPIDEM TARTRATE 5 MG TAB PO PRN ×2 (00:16→23:11)
[2016-08-20] MEDS: ACETAMINOPHEN/HYDROcodone 325 MG/7.5 MG TAB PO PRN ×4 (00:21→17:32)
[2016-08-20 00:31] VITALS: BP 126/60; PULSE 94; RESP 20; TEMP 96.2; O2SAT 94
[2016-08-20 05:25] LABS: AUTOMATED NEUTROPHIL # 8.2 TH/MM3 (1.8-7.7); BASOPHIL # 0.1 TH/MM3 (0-0.2); BASOPHIL % 0.9 % (0.0-2.0); EOSINOPHIL # 0.4 TH/MM3 (0-0.4); EOSINOPHIL % 3.8 % (0.0-4.0); HEMATOCRIT 31.6 % (35.0-46.0); HEMO FLAGS DIFF FINAL; LYMPH % 11.3 % (9.0-44.0); LYMPHOCYTE # 1.2 TH/MM3 (1.0-4.8); MEAN CORPUSCULAR HEMOGLOBIN 27.6 PG (27.0-34.0); MEAN CORPUSCULAR HGB CONC 33.2 % (32.0-36.0); MONO % 7.8 % (0.0-8.0); NEUT % 76.2 % (16.0-70.0); PLATELET COUNT 452 TH/MM3 (150-450); RED CELL DISTRIBUTION WIDTH 16.5 % (11.6-17.2); WHITE BLOOD COUNT 10.8 TH/MM3 (4.0-11.0)
[2016-08-20 05:54] LABS: ALKALINE PHOSPHATASE 210 U/L (45-117); ALT (GPT) 15 U/L (10-53); ANION GAP 8 MEQ/L (5-15); AST (GOT) 14 U/L (15-37); BICARBONATE 30.6 MEQ/L (21.0-32.0); BLOOD UREA NITROGEN 16 MG/DL (7-18); CHLORIDE 94 MEQ/L (98-107); GLOMERULAR FILTRATION RATE 118 ML/MIN (>89); SODIUM (NA) 133 MEQ/L (136-145); TOTAL BILIRUBIN ADULT 0.2 MG/DL (0.2-1.0)
[2016-08-20 08:00] VITALS: BP 106/61; PULSE 92; RESP 17; TEMP 98.9; O2SAT 95
[2016-08-20] MEDS: DOCUSATE SODIUM 50 MG/SENNA 8.6 MG TAB PO SCH (09:00)
[2016-08-20] MEDS: SODIUM CHLORIDE 0.9% FLUSH 5 ML FLUSH IVF SCH ×2 (09:00→19:50)
[2016-08-20] MEDS: FAMOTIDINE 20 MG TAB PO SCH ×2 (09:20→19:50)
[2016-08-20] MEDS: LACTOBACILLUS ACIDOPHILUS TAB PO SCH ×3 (09:20→17:32)
[2016-08-20] MEDS: FUROSEMIDE 20 MG TAB PO SCH (09:20)
[2016-08-20] MEDS: POTASSIUM BICARBONATE 25 MEQ EFFERVESCENT TAB PO SCH (09:21)
--- NOTE | 2016-08-20 10:03 | HHI.FPPN ---
Subjective Remarks Patient is frustrated and is feeling sad with her circumstances with the wound vac. She continues to have frequent bowel movements. She has had 11 bowel movements in the last 48 hours. She states at first she was constipated and was receiving enemas. She denies chest pain, fever, chills. (Ian Genao MD R2) Objective Vitals Vital Signs Date Time Temp Pulse Resp B/P Pulse Ox O2 Delivery O2 Flow Rate FiO2 08/20/16 08:00 98.9 92 17 106/61 95 08/20/16 00:31 96.2 94 20 126/60 94 08/19/16 20:27 100.1 100 18 159/53 94 08/19/16 16:00 100.2 105 19 143/59 95 08/19/16 12:00 98.4 101 18 103/59 94 I/O 08/19/16 08/19/16 08/19/16 08/20/16 08/20/16 08/20/16 07:00 15:00 23:00 07:00 15:00 23:00 Intake Total 1200 ml 300 ml 1078 ml 240 ml Output Total 175 ml 100 ml 75 ml Balance 1025 ml 300 ml 978 ml 165 ml Intake Oral 240 ml 300 ml 480 ml 240 ml IV Total 960 ml TPN/PPN 598 ml Drainage Total 175 ml 100 ml 75 ml # Voids 3 3 3 3 # Bowel Movements 1 2 3 2 (Ian Genao MD R2) Result Diagram: 08/20/16 0500 08/20/16 0500 Objective Remarks GENERAL: NAD, lying in bed, in no acute distress SKIN: Warm and dry. Patient with ostomy bag and wound VAC covering repaired fistula; placed to continuous wall suction. Moderate erythema left lateral abdomen. Peripheral IV and PICC line in place in left arm. HEENT: Normocephalic. Atraumatic. EOMI. No scleral icterus. No injection or drainage. No nasal drainage. Moist mucous membranes. CARDIOVASCULAR: Regular rate and rhythm without murmurs, gallops, or rubs RESPIRATORY: Clear to auscultation bilaterally GASTROINTESTINAL: Abdomen obese. See skin above. + bowel sounds. MUSCULOSKELETAL: No pitting edema of bilateral lower extremities. No calf tenderness. NEURO: Awake and alert. 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 staff auditor grossly intact. 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 Discharge Planning D/C pending clearance by general surgery. Time frame is unclear. wdw Dr. Oliver (Ian Genao MD R2) Attending Attestation Patient seen and examined Case reviewed and discussed Agree with plan of care as discussed with me and documented in the resident note. (Cassy Oliver MD) Problem List: (1) Enterocutaneous fistula Status: Acute Plan: General Surgery Consulted, appreciate recommendations and interventions 07/28: Status post incision and drainage and washout of left abdominal wall, with wound vac placement due to small bowel fistulae Wound VAC changed at bedside by wound care team. -Pain control with [place] 7.5325 Q4hrs prn pain 610, morphine 2 mg IV q3h prn breakthrough, hold if SBP < 110 or DBP < 60 -Blood cultures no growth for 5 days -If pt has additional fevers consider blood culture, wound culture, antibiotics to cover for abdominal infection -Continue TPN with PICC line to reduce drainage and promote wound healing Imaging 07/28 - Abdomen/Pelvis CT: Diffuse and extensive subcutaneous emphysema around the abdominal wall from patient's right lateral abdominal wall across midline to left lateral abdominal wall. Fluid collection in anterior left abdominal wall suspicious for subcutaneous abscess. Nonspecific edema throughout subcutaneous tissues. No acute intra-abdominal or pelvic pathology. Prior antibiotics: - Vancomycin, pharm consult (07/28-08/13) - Cefepime 2gm IV q8h (07/28-08/13) - Flagyl 500 mg IV q6h (07/28-08/13) (2) Skin rash Status: Acute Plan: See physical exam regarding skin findings. Slight improvement since starting TPN through PICC line. -Wound care consulted and appreciated -Wound VAC modifications per wound care team -Continue to monitor drainage from fistula -Consider changing diet from reg basic and TPN to TPN only (3) Physical deconditioning Status: Acute Plan: Patient physically deconditioned after staying in bed for extended period of time. Nursing order to get patient out of bed at least 3 times a day as tolerated with assistance -PT recommends PT at rehabilitation. Totally dependent. (4) Anemia Status: Acute Plan: -Currently stable. - Continue to monitor - Iron panel significant for anemia of chronic disease - B12 and Folate both elevated (5) Lower extremity edema Status: Resolved Plan: Resolved Patient with no pitting edema of bilateral lower extremities on exam. - SCDs - 20 mg Lasix po daily, 25 meq potassium (6) Nutrition, metabolism, and development symptoms Status: Acute Plan: Fluids: None at this time Electrolytes: Electrolytes within normal limits, continue to monitor and replete as necessary Nutrition: TPN and regular basic diet DVT PPX: SCDs and Lovenox; risk of DVT and PE greater than risk for chronic wound bleeding GI PPX: Pepcid (Ian Genao MD R2) Problem Qualifiers (1) Anemia: Qualified Code: D64.9 - Anemia, unspecified type Ian Genao MD R2 Aug 20, 2016 10:03 Cassy Oliver MD Aug 31, 2016 10:30 Problem Qualifiers (1) Anemia: Qualified Code: D64.9 - Anemia, unspecified type Ian Genao MD R2 Aug 20, 2016 10:03
[2016-08-20 12:00] VITALS: BP 108/59; PULSE 95; RESP 17; TEMP 98.5; O2SAT 95
--- NOTE | 2016-08-20 12:52 | HHI.PR ---
Subjective Subjective Notes DAILY PROGRESS NOTE FOR SURGICAL ATTENDING, DR. LANDRY VELEZ No recent changes VAC has a little leak today Objective Vitals/I&O Vital Signs Date Time Temp Pulse Resp B/P Pulse Ox O2 Delivery O2 Flow Rate FiO2 08/20/16 12:00 98.5 95 17 108/59 95 Labs Laboratory Tests Test 08/20/16 05:00 White Blood Count 10.8 Red Blood Count 3.80 Hemoglobin 10.5 Hematocrit 31.6 Mean Corpuscular Volume 83.0 Mean Corpuscular Hemoglobin 27.6 Mean Corpuscular Hemoglobin 33.2 Concent Red Cell Distribution Width 16.5 Platelet Count 452 Mean Platelet Volume 6.8 Neutrophils (%) (Auto) 76.2 Lymphocytes (%) (Auto) 11.3 Monocytes (%) (Auto) 7.8 Eosinophils (%) (Auto) 3.8 Basophils (%) (Auto) 0.9 Neutrophils # (Auto) 8.2 Lymphocytes # (Auto) 1.2 Monocytes # (Auto) 0.8 Eosinophils # (Auto) 0.4 Basophils # (Auto) 0.1 CBC Comment DIFF FINAL Differential Comment Sodium Level 133 Potassium Level 4.0 Chloride Level 94 Carbon Dioxide Level 30.6 Anion Gap 8 Blood Urea Nitrogen 16 Creatinine 0.52 Estimat Glomerular Filtration 118 Rate Random Glucose 176 Calcium Level 8.6 Total Bilirubin 0.2 Aspartate Amino Transf 14 (AST/SGOT) Alanine Aminotransferase 15 (ALT/SGPT) Alkaline Phosphatase 210 Total Protein 6.4 Albumin 2.1 Radiology Narrative Exam VAC dressing intact Discussed with Jane VAC therapy nurse changing later today A/P Problem List: (1) Enterocutaneous fistula (2) Subcutaneous abscess (3) Abscess of abdominal wall Assessment and Plan 65-year-old female who recently had exploration in [place] with 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
[2016-08-20] MEDS: HYDROmorphone HCL PF 1 MG/ML VIAL IV PRN (13:54)
[2016-08-20] MEDS: ENOXAPARIN SODIUM 40 MG/0.4 ML SYRINGE SQ SCH (14:55)
[2016-08-20] MEDS: PRAMIPEXOLE DIHYDROCHLORIDE 0.25 MG TAB PO SCH (19:49)
[2016-08-20] MEDS: CLINIMIX E 5/25 2000 mL- >42 mls/hr IV-CENTRAL SCH ×3 (19:49)
[2016-08-20 20:00] VITALS: BP 108/60; PULSE 93; RESP 18; TEMP 98.9; O2SAT 95
[2016-08-21] VITALS: BP 103/62; PULSE 96; RESP 18; TEMP 98; O2SAT 95
[2016-08-21 06:06] LABS: AUTOMATED NEUTROPHIL # 6.2 TH/MM3 (1.8-7.7); BASOPHIL # 0.1 TH/MM3 (0-0.2); BASOPHIL % 0.7 % (0.0-2.0); EOSINOPHIL # 0.6 TH/MM3 (0-0.4); EOSINOPHIL % 6.6 % (0.0-4.0); HEMATOCRIT 31.9 % (35.0-46.0); HEMO FLAGS DIFF FINAL; LYMPH % 13.1 % (9.0-44.0); LYMPHOCYTE # 1.2 TH/MM3 (1.0-4.8); MEAN CELL VOLUME 82.8 FL (80.0-100.0); MEAN CORPUSCULAR HEMOGLOBIN 27.2 PG (27.0-34.0); MEAN CORPUSCULAR HGB CONC 32.9 % (32.0-36.0); MONO % 9.9 % (0.0-8.0); NEUT % 69.7 % (16.0-70.0); PLATELET COUNT 430 TH/MM3 (150-450); RED BLOOD COUNT 3.85 MIL/MM3 (4.00-5.30); RED CELL DISTRIBUTION WIDTH 16.6 % (11.6-17.2); WHITE BLOOD COUNT 8.8 TH/MM3 (4.0-11.0)
[2016-08-21 06:41] LABS: ALKALINE PHOSPHATASE 217 U/L (45-117); ALT (GPT) 15 U/L (10-53); ANION GAP 8 MEQ/L (5-15); AST (GOT) 11 U/L (15-37); BLOOD UREA NITROGEN 16 MG/DL (7-18); CHLORIDE 95 MEQ/L (98-107); GLOMERULAR FILTRATION RATE 129 ML/MIN (>89); POTASSIUM 4.3 MEQ/L (3.5-5.1); SODIUM (NA) 135 MEQ/L (136-145); TOTAL BILIRUBIN ADULT 0.3 MG/DL (0.2-1.0)
[2016-08-21 08:00] VITALS: BP 121/68; PULSE 90; RESP 17; TEMP 97.1; O2SAT 97
--- NOTE | 2016-08-21 08:07 | HHI.FPPN ---
Subjective Remarks Patient is doing well this morning. No acute complaints at this time. Denies nausea, vomiting, diarrhea. No fever, chills. No chest pain. No shortness of breath. (Ian Genao MD R2) Objective Vitals Vital Signs Date Time Temp Pulse Resp B/P Pulse Ox O2 Delivery O2 Flow Rate FiO2 08/21/16 00:00 98.0 96 18 103/62 95 08/20/16 20:00 98.9 93 18 108/60 95 08/20/16 12:00 98.5 95 17 108/59 95 I/O 08/20/16 08/20/16 08/20/16 08/21/16 08/21/16 08/21/16 07:00 15:00 23:00 07:00 15:00 23:00 Intake Total 240 ml 1060 ml 663 ml 720 ml Output Total 75 ml 1160 ml 25 ml 125 ml Balance 165 ml -100 ml 638 ml 595 ml Intake Oral 240 ml 340 ml 480 ml 0 ml TPN/PPN 720 ml 183 ml 720 ml Output Urine Total 1000 ml Drainage Total 75 ml 160 ml 25 ml 125 ml # Voids 3 1 5 # Bowel Movements 2 0 2 (Ian Genao MD R2) Result Diagram: 08/21/1655408/21/16 05 Objective Remarks GENERAL: NAD, lying in bed, in no acute distress SKIN: Warm and dry. Patient with ostomy bag and wound VAC covering repaired fistula; placed to continuous wall suction. Moderate erythema left lateral abdomen. Peripheral IV and PICC line in place in left arm. HEENT: Normocephalic. Atraumatic. EOMI. No scleral icterus. No injection or drainage. No nasal drainage. Moist mucous membranes. CARDIOVASCULAR: Regular rate and rhythm without murmurs, gallops, or rubs RESPIRATORY: Clear to auscultation bilaterally GASTROINTESTINAL: Abdomen obese. See skin above. + bowel sounds. MUSCULOSKELETAL: No pitting edema of bilateral lower extremities. No calf tenderness. NEURO: Awake and alert. 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 Discharge Planning D/C pending clearance by general surgery. Time frame is unclear. wdw Dr. Oliver (Ian Genao MD R2) Attending Attestation Patient seen and examined Case reviewed and discussed Agree with plan of care as discussed with me and documented in the resident note. (Cassy Oliver MD) Problem List: (1) Enterocutaneous fistula Status: Acute Plan: General Surgery Consulted, appreciate recommendations and interventions 07/28: Status post incision and drainage and washout of left abdominal wall, with wound vac placement due to small bowel fistulae Wound VAC changed at bedside by wound care team. -Pain control with [place] 7.5325 Q4hrs prn pain 610, morphine 2 mg IV q3h prn breakthrough, hold if SBP < 110 or DBP < 60 -Blood cultures no growth for 5 days -If pt has additional fevers consider blood culture, wound culture, antibiotics to cover for abdominal infection -Continue TPN with PICC line to reduce drainage and promote wound healing Imaging 07/28 - Abdomen/Pelvis CT: Diffuse and extensive subcutaneous emphysema around the abdominal wall from patient's right lateral abdominal wall across midline to left lateral abdominal wall. Fluid collection in anterior left abdominal wall suspicious for subcutaneous abscess. Nonspecific edema throughout subcutaneous tissues. No acute intra-abdominal or pelvic pathology. Prior antibiotics: - Vancomycin, pharm consult (07/28-08/13) - Cefepime 2gm IV q8h (07/28-08/13) - Flagyl 500 mg IV q6h (07/28-08/13) (2) Skin rash Status: Acute Plan: See physical exam regarding skin findings. -Wound care consulted and appreciated -Wound VAC modifications per wound care team -Continue to monitor drainage from fistula (3) Physical deconditioning Status: Acute Plan: Patient physically deconditioned after staying in bed for extended period of time. Nursing order to get patient out of bed at least 3 times a day as tolerated with assistance -PT recommends PT at rehabilitation. Totally dependent. (4) Anemia Status: Acute Plan: -Currently stable. - Continue to monitor - Iron panel significant for anemia of chronic disease - B12 and Folate both elevated (5) Lower extremity edema Status: Resolved Plan: Resolved Patient with no pitting edema of bilateral lower extremities on exam. - SCDs - 20 mg Lasix po daily, 25 meq potassium (6) Nutrition, metabolism, and development symptoms Status: Acute Plan: Fluids: None at this time Electrolytes: Electrolytes within normal limits, continue to monitor and replete as necessary Nutrition: TPN and regular basic diet DVT PPX: SCDs and Lovenox; risk of DVT and PE greater than risk for chronic wound bleeding GI PPX: Pepcid (Ian Genao MD R2) Problem Qualifiers (1) Anemia: Qualified Code: D64.9 - Anemia, unspecified type Ian Genao MD R2 Aug 21, 2016 08:07 Cassy Oliver MD Aug 31, 2016 10:30
[2016-08-21] MEDS: SODIUM CHLORIDE 0.9% FLUSH 5 ML FLUSH IVF SCH ×2 (09:00→20:05)
[2016-08-21] MEDS: ACETAMINOPHEN/HYDROcodone 325 MG/7.5 MG TAB PO PRN ×3 (09:23→20:04)
[2016-08-21] MEDS: LACTOBACILLUS ACIDOPHILUS TAB PO SCH ×3 (09:23→16:52)
[2016-08-21] MEDS: FUROSEMIDE 20 MG TAB PO SCH (09:23)
[2016-08-21] MEDS: FAMOTIDINE 20 MG TAB PO SCH ×2 (09:23→20:05)
[2016-08-21] MEDS: POTASSIUM BICARBONATE 25 MEQ EFFERVESCENT TAB PO SCH (09:24)
--- NOTE | 2016-08-21 10:39 | HHI.PR ---
Subjective Subjective Notes DAILY PROGRESS NOTE FOR SURGICAL ATTENDING, DR. LANDRY VELEZ Resting in bed Going to try to eat something today at bedside; thinks going to rehab is a good idea Objective Vitals/I&O Vital Signs Date Time Temp Pulse Resp B/P Pulse Ox O2 Delivery O2 Flow Rate FiO2 08/21/16 08:00 97.1 90 17 121/68 97 Labs Laboratory Tests Test 08/21/16 05:55 White Blood Count 8.8 Red Blood Count 3.85 Hemoglobin 10.5 Hematocrit 31.9 Mean Corpuscular Volume 82.8 Mean Corpuscular Hemoglobin 27.2 Mean Corpuscular Hemoglobin 32.9 Concent Red Cell Distribution Width 16.6 Platelet Count 430 Mean Platelet Volume 6.6 Neutrophils (%) (Auto) 69.7 Lymphocytes (%) (Auto) 13.1 Monocytes (%) (Auto) 9.9 Eosinophils (%) (Auto) 6.6 Basophils (%) (Auto) 0.7 Neutrophils # (Auto) 6.2 Lymphocytes # (Auto) 1.2 Monocytes # (Auto) 0.9 Eosinophils # (Auto) 0.6 Basophils # (Auto) 0.1 CBC Comment DIFF FINAL Differential Comment Sodium Level 135 Potassium Level 4.3 Chloride Level 95 Carbon Dioxide Level 32.0 Anion Gap 8 Blood Urea Nitrogen 16 Creatinine 0.48 Estimat Glomerular Filtration 129 Rate Random Glucose 138 Calcium Level 8.8 Total Bilirubin 0.3 Aspartate Amino Transf 11 (AST/SGOT) Alanine Aminotransferase 15 (ALT/SGPT) Alkaline Phosphatase 217 Total Protein 6.5 Albumin 2.2 Radiology Cardiovascular: Regular Lungs: Clear Abdomen: Other (large abdominal wound with would vac in place; drainage bag connected to draining fistula---minimal drainage in bag; good seal on wound vac ) Extremities: Other (generalized edema ) A/P Problem List: (1) Enterocutaneous fistula (2) Subcutaneous abscess (3) Abscess of abdominal wall Assessment and Plan 65-year-old female who recently had exploration in [place] with 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
[2016-08-21 12:00] VITALS: BP 119/55; PULSE 88; RESP 16; TEMP 97.6; O2SAT 95
[2016-08-21] MEDS: ENOXAPARIN SODIUM 40 MG/0.4 ML SYRINGE SQ SCH (15:05)
[2016-08-21 16:00] VITALS: BP 120/63; PULSE 70; RESP 17; TEMP 95.4; O2SAT 95
[2016-08-21 20:00] VITALS: BP 116/58; PULSE 94; RESP 17; TEMP 98.4; O2SAT 95
[2016-08-21] MEDS: PRAMIPEXOLE DIHYDROCHLORIDE 0.25 MG TAB PO SCH (20:05)
[2016-08-21] MEDS: CLINIMIX E 5/25 2000 mL- >42 mls/hr IV-CENTRAL SCH ×3 (20:06)
[2016-08-21] MEDS: ZOLPIDEM TARTRATE 5 MG TAB PO PRN (23:16)
[2016-08-22] VITALS: BP 106/56; PULSE 107; RESP 18; TEMP 97; O2SAT 95
[2016-08-22] MEDS: ACETAMINOPHEN/HYDROcodone 325 MG/7.5 MG TAB PO PRN ×5 (03:53→21:28)
[2016-08-22] MEDS ORDERED: ALTEPLASE RECOMBINANT 2 MG VIAL INTRACATH PRN ×2 (06:15)
[2016-08-22 08:00] VITALS: BP 99/51; PULSE 90; RESP 18; TEMP 98.3; O2SAT 95
[2016-08-22] MEDS: FAMOTIDINE 20 MG TAB PO SCH ×2 (08:39→21:30)
[2016-08-22] MEDS: FUROSEMIDE 20 MG TAB PO SCH (08:39)
[2016-08-22] MEDS: POTASSIUM BICARBONATE 25 MEQ EFFERVESCENT TAB PO SCH (08:40)
[2016-08-22] MEDS: LACTOBACILLUS ACIDOPHILUS TAB PO SCH ×3 (08:40→17:01)
[2016-08-22] MEDS: SODIUM CHLORIDE 0.9% FLUSH 5 ML FLUSH IVF SCH ×2 (08:41→21:00)
[2016-08-22 10:08] LABS: AUTOMATED NEUTROPHIL # 6.7 TH/MM3 (1.8-7.7); BASOPHIL % 0.4 % (0.0-2.0); EOSINOPHIL # 0.6 TH/MM3 (0-0.4); EOSINOPHIL % 5.7 % (0.0-4.0); HEMATOCRIT 35.2 % (35.0-46.0); HEMO FLAGS DIFF FINAL; LYMPH % 15.6 % (9.0-44.0); LYMPHOCYTE # 1.5 TH/MM3 (1.0-4.8); MEAN CELL VOLUME 83.9 FL (80.0-100.0); MEAN CORPUSCULAR HEMOGLOBIN 27.1 PG (27.0-34.0); MEAN CORPUSCULAR HGB CONC 32.2 % (32.0-36.0); MONO % 8.7 % (0.0-8.0); NEUT % 69.6 % (16.0-70.0); PLATELET COUNT 487 TH/MM3 (150-450); RED BLOOD COUNT 4.19 MIL/MM3 (4.00-5.30); WHITE BLOOD COUNT 9.7 TH/MM3 (4.0-11.0)
[2016-08-22 10:37] LABS: ALKALINE PHOSPHATASE 286 U/L (45-117); ALT (GPT) 27 U/L (10-53); ANION GAP 8 MEQ/L (5-15); AST (GOT) 24 U/L (15-37); BICARBONATE 30.1 MEQ/L (21.0-32.0); BLOOD UREA NITROGEN 17 MG/DL (7-18); CHLORIDE 96 MEQ/L (98-107); GLOMERULAR FILTRATION RATE 104 ML/MIN (>89); POTASSIUM 5.3 MEQ/L (3.5-5.1); SODIUM (NA) 134 MEQ/L (136-145); TOTAL BILIRUBIN ADULT 0.5 MG/DL (0.2-1.0)
[2016-08-22 12:00] VITALS: BP 98/60; PULSE 89; RESP 17; TEMP 99; O2SAT 95
--- NOTE | 2016-08-22 14:58 | HHI.FPPN ---
Subjective Remarks No acute events overnight. Afebrile, vital signs stable. Patient continues to complain of a rash in her axillary area, groin and underneath her breasts. She also complains of a rash/lesion on the back of her neck. She states these are very painful and bothersome to her. She has been up in the chair for over an hour today. (Ginette Herbert MD R3) Objective Vitals Vital Signs Date Time Temp Pulse Resp B/P Pulse Ox O2 Delivery O2 Flow Rate FiO2 08/22/16 12:00 99.0 89 17 98/60 95 08/22/16 08:00 98.3 90 18 99/51 95 08/22/16 00:00 97.0 107 18 106/56 95 08/21/16 20:00 98.4 94 17 116/58 95 08/21/16 16:00 95.4 70 17 120/63 95 I/O 08/21/16 08/21/16 08/21/16 08/22/16 08/22/16 08/22/16 07:00 15:00 23:00 07:00 15:00 23:00 Intake Total 720 ml 1099 ml 589 ml 929 ml Output Total 125 ml 620 ml 150 ml 200 ml Balance 595 ml 479 ml 439 ml 729 ml Intake Oral 0 ml 340 ml 240 ml 240 ml TPN/PPN 720 ml 759 ml 349 ml 689 ml Output Urine Total 600 ml Drainage Total 125 ml 20 ml 150 ml 200 ml # Voids 5 2 3 # Bowel Movements 2 2 (Ginette Herbert MD R3) Result Diagram: 08/22/1692408/22/16924 Objective Remarks GENERAL: NAD, lying in bed SKIN: Warm and dry. Patient with ostomy bag and wound VAC covering repaired fistula; placed to continuous wall suction. Moderate erythema left lateral abdomen. Peripheral IV and PICC line in place in left arm. Patient with erythematous rash in groin, axillary region and underneath her breasts. Also with erythematous linear lesion along the back of her neck. HEENT: Normocephalic. Atraumatic. EOMI. No scleral icterus. No injection or drainage. No nasal drainage. Moist mucous membranes. CARDIOVASCULAR: Regular rate and rhythm without murmurs, gallops, or rubs RESPIRATORY: Clear to auscultation bilaterally GASTROINTESTINAL: Abdomen obese. See skin above. + bowel sounds. MUSCULOSKELETAL: No pitting edema of bilateral lower extremities. No calf tenderness. NEURO: Awake and alert. 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 Discharge Planning Pending clinical improvement and clearance by general surgery. (Ginette Herbert MD R3) Attending Attestation Patient seen and examined Case reviewed and discussed Agree with plan of care as discussed with me and documented in the resident note. (Cassy Oliver MD) Problem List: (1) Enterocutaneous fistula Status: Acute Plan: General Surgery Consulted, appreciate recommendations and interventions 07/28: Status post incision and drainage and washout of left abdominal wall, with wound vac placement due to small bowel fistula Wound VAC changed at bedside by wound care team. -Pain control with [place] 7.5325 Q4hrs prn pain 610, morphine 2 mg IV q3h prn breakthrough, hold if SBP < 110 or DBP < 60 -Blood cultures no growth for 5 days -If pt has additional fevers consider blood culture, wound culture, antibiotics to cover for abdominal infection -Continue TPN with PICC line to reduce drainage and promote wound healing Imaging 07/28 - Abdomen/Pelvis CT: Diffuse and extensive subcutaneous emphysema around the abdominal wall from patient's right lateral abdominal wall across midline to left lateral abdominal wall. Fluid collection in anterior left abdominal wall suspicious for subcutaneous abscess. Nonspecific edema throughout subcutaneous tissues. No acute intra-abdominal or pelvic pathology. Prior antibiotics: - Vancomycin, pharm consult (07/28-08/13) - Cefepime 2gm IV q8h (07/28-08/13) - Flagyl 500 mg IV q6h (07/28-08/13) (2) Skin rash Status: Acute Plan: Patient with fungal rash in her axilla, groin and underneath her breasts. Also with lesion along the back of neck Nystatin powder for groin, axilla, area under breasts Clotrimazole cream for back of neck (3) Physical deconditioning Status: Acute Plan: Patient physically deconditioned after staying in bed for extended period of time. Nursing order to get patient out of bed at least 3 times a day as tolerated with assistance -PT recommends PT at rehabilitation. Totally dependent. (4) Anemia Status: Acute Plan: -Currently stable. - Continue to monitor - Iron panel significant for anemia of chronic disease - B12 and Folate both elevated (5) Lower extremity edema Status: Resolved Plan: Resolved Patient with no pitting edema of bilateral lower extremities on exam. - SCDs - 20 mg Lasix po daily, 25 meq potassium (6) Nutrition, metabolism, and development symptoms Status: Acute Plan: Fluids: None at this time Electrolytes: Electrolytes within normal limits, continue to monitor and replete as necessary Nutrition: TPN and regular basic diet DVT PPX: SCDs and Lovenox; risk of DVT and PE greater than risk for chronic wound bleeding GI PPX: Pepcid (Ginette Herbert MD R3) Problem Qualifiers (1) Anemia: Qualified Code: D64.9 - Anemia, unspecified type Ginette Herbert MD R3 Aug 22, 2016 14:58 Cassy Oliver MD Aug 31, 2016 10:30
[2016-08-22 16:00] VITALS: BP 106/48; PULSE 92; RESP 17; TEMP 98.2; O2SAT 96
[2016-08-22] MEDS: ENOXAPARIN SODIUM 40 MG/0.4 ML SYRINGE SQ SCH (17:01)
[2016-08-22 20:00] VITALS: BP 117/55; PULSE 94; RESP 18; TEMP 97.5; O2SAT 97
[2016-08-22] MEDS: FAT EMULSION 20% INJ 250 ML (Twice weekly over 8 hours) IV-CENTRAL SCH (21:28)
[2016-08-22] MEDS: PRAMIPEXOLE DIHYDROCHLORIDE 0.25 MG TAB PO SCH (21:29)
[2016-08-22] MEDS: NYSTATIN 100,000 U/GM PWD 15 GM BTL TOPICAL SCH (21:31)
[2016-08-22] MEDS: CLOTRIMAZOLE 1% CREAM 15 GM TOPICAL SCH (21:31)
[2016-08-22] MEDS: CLINIMIX E 5/25 2000 mL- >42 mls/hr IV-CENTRAL SCH ×3 (21:38)
[2016-08-22] MEDS: ZOLPIDEM TARTRATE 5 MG TAB PO PRN (22:18)
[2016-08-23] VITALS: BP 107/56; PULSE 96; RESP 17; TEMP 99.3; O2SAT 97
[2016-08-23] MEDS: ACETAMINOPHEN/HYDROcodone 325 MG/7.5 MG TAB PO PRN ×4 (01:42→21:35)
[2016-08-23 07:22] LABS: HEMATOCRIT 32.3 % (35.0-46.0); MEAN CELL VOLUME 83.8 FL (80.0-100.0); MEAN CORPUSCULAR HEMOGLOBIN 27.1 PG (27.0-34.0); MEAN CORPUSCULAR HGB CONC 32.4 % (32.0-36.0); PLATELET COUNT 476 TH/MM3 (150-450); RED BLOOD COUNT 3.86 MIL/MM3 (4.00-5.30); RED CELL DISTRIBUTION WIDTH 17.2 % (11.6-17.2); REVIEW FLAG FINAL; WHITE BLOOD COUNT 9.6 TH/MM3 (4.0-11.0)
[2016-08-23 08:00] VITALS: BP 113/63; PULSE 93; RESP 16; TEMP 98.4; O2SAT 97
[2016-08-23 08:05] LABS: ALKALINE PHOSPHATASE 268 U/L (45-117); ALT (GPT) 27 U/L (10-53); ANION GAP 7 MEQ/L (5-15); AST (GOT) 18 U/L (15-37); BLOOD UREA NITROGEN 18 MG/DL (7-18); CHLORIDE 95 MEQ/L (98-107); GLOMERULAR FILTRATION RATE 100 ML/MIN (>89); POTASSIUM 4.3 MEQ/L (3.5-5.1); SODIUM (NA) 135 MEQ/L (136-145); TOTAL BILIRUBIN ADULT 0.3 MG/DL (0.2-1.0)
[2016-08-23] MEDS: POTASSIUM BICARBONATE 25 MEQ EFFERVESCENT TAB PO SCH (09:00)
--- NOTE | 2016-08-23 09:37 | HHI.FPPN ---
Subjective Remarks Patient is doing well this morning. She is getting up to her chair 3 times a day. She does complain of dysuria the last time she urinated. No hematuria. She is in good spirits. She is interested in going to rehabilitation. No fever , chills, chest pain. She continues to complain of rash on her groin, axillary region, underneath breasts, in the back of her neck. It is about the same as yesterday, however they have started treatment last night. (Ian Genao MD R2 ) Objective Vitals Vital Signs Date Time Temp Pulse Resp B/P Pulse Ox O2 Delivery O2 Flow Rate FiO2 08/23/16 08:00 98.4 93 16 113/63 97 08/23/16 00:00 99.3 96 17 107/56 97 08/22/16 20:00 97.5 94 18 117/55 97 08/22/16 16:00 98.2 92 17 106/48 96 08/22/16 12:00 99.0 89 17 98/60 95 I/O 08/22/16 08/22/16 08/22/16 08/23/16 08/23/16 08/23/16 07:00 15:00 23:00 07:00 15:00 23:00 Intake Total 929 ml 960 ml 810 ml 1164 ml Output Total 200 ml 300 ml 50 ml Balance 729 ml 960 ml 510 ml 1114 ml Intake Oral 240 ml 960 ml 240 ml 240 ml TPN/PPN 689 ml 570 ml 677 ml Lipid 247 ml Output Urine Total 300 ml Drainage Total 200 ml 50 ml # Voids 3 3 2 5 # Bowel Movements 1 (Ian Genao MD R2) Result Diagram: 08/23/1630 08/23/16 0630 Objective Remarks GENERAL: NAD, lying in bed SKIN: Warm and dry. Patient with ostomy bag and wound VAC covering repaired fistula; placed to continuous wall suction. Moderate erythema left lateral abdomen. Peripheral IV and PICC line in place in left arm. Patient with erythematous pruritic rash in groin, axillary region and underneath her breasts. Also with erythematous 2 x 3 cm linear lesion along the back of her neck. HEENT: Normocephalic. Atraumatic. EOMI. No scleral icterus. No injection or drainage. No nasal drainage. Moist mucous membranes. CARDIOVASCULAR: Regular rate and rhythm without murmurs, gallops, or rubs RESPIRATORY: Clear to auscultation bilaterally GASTROINTESTINAL: Abdomen obese. See skin above. + bowel sounds. MUSCULOSKELETAL: No pitting edema of bilateral lower extremities. No calf tenderness. NEURO: Awake and alert. 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 Discharge Planning Pending clinical improvement and clearance by general surgery. PT recommends physical therapy at rehabilitation. (Ian Genao MD R2) Attending Attestation Patient seen and examined Case reviewed and discussed Agree with plan of care as discussed with me and documented in the resident note. (Cassy Oliver MD) Problem List: (1) Enterocutaneous fistula Status: Acute Plan: General Surgery Consulted, appreciate recommendations and interventions 07/28: Status post incision and drainage and washout of left abdominal wall, with wound vac placement due to small bowel fistula Wound VAC changed at bedside by wound care team. -Pain control with [place] 7.5325 Q4hrs prn pain 610, morphine 2 mg IV q3h prn breakthrough, hold if SBP < 110 or DBP < 60 -Blood cultures no growth for 5 days -If pt has additional fevers consider blood culture, wound culture, antibiotics to cover for abdominal infection -Continue TPN with PICC line to reduce drainage and promote wound healing Imaging 07/28 - Abdomen/Pelvis CT: Diffuse and extensive subcutaneous emphysema around the abdominal wall from patient's right lateral abdominal wall across midline to left lateral abdominal wall. Fluid collection in anterior left abdominal wall suspicious for subcutaneous abscess. Nonspecific edema throughout subcutaneous tissues. No acute intra-abdominal or pelvic pathology. Prior antibiotics: - Vancomycin, pharm consult (07/28-08/13) - Cefepime 2gm IV q8h (07/28-08/13) - Flagyl 500 mg IV q6h (07/28-08/13) (2) Skin rash Status: Acute Plan: Patient with likely fungal rash in her axilla, groin and underneath her breasts. Also with lesion along the back of neck Nystatin powder for groin, axilla, area under breasts Clotrimazole cream for back of neck (3) Physical deconditioning Status: Acute Plan: Patient physically deconditioned after staying in bed for extended period of time. Nursing order to get patient out of bed at least 3 times a day as tolerated with assistance -PT recommends PT at rehabilitation. Totally dependent. (4) Anemia Status: Acute Plan: -Currently stable. - Continue to monitor - Iron panel significant for anemia of chronic disease - B12 and Folate both elevated (5) Lower extremity edema Status: Resolved Plan: Resolved Patient with no pitting edema of bilateral lower extremities on exam. - SCDs - 20 mg Lasix po daily, 25 meq potassium (6) Nutrition, metabolism, and development symptoms Status: Acute Plan: Fluids: None at this time Electrolytes: Electrolytes within normal limits, continue to monitor and replete as necessary Nutrition: TPN and regular basic diet DVT PPX: SCDs and Lovenox; risk of DVT and PE greater than risk for chronic wound bleeding GI PPX: Pepcid (Ian Genao MD R2) Problem Qualifiers (1) Anemia: Qualified Code: D64.9 - Anemia, unspecified type Ian Genao MD R2 Aug 23, 2016 09:37 Cassy Oliver MD Aug 31, 2016 10:30
[2016-08-23] MEDS: LACTOBACILLUS ACIDOPHILUS TAB PO SCH ×3 (09:50→17:57)
[2016-08-23] MEDS: FUROSEMIDE 20 MG TAB PO SCH (09:50)
[2016-08-23] MEDS: FAMOTIDINE 20 MG TAB PO SCH ×2 (09:50→21:36)
[2016-08-23] MEDS: CLOTRIMAZOLE 1% CREAM 15 GM TOPICAL SCH ×2 (09:51→21:36)
[2016-08-23] MEDS: NYSTATIN 100,000 U/GM PWD 15 GM BTL TOPICAL SCH ×2 (09:51→21:36)
[2016-08-23 10:57] LABS: BACTERIA, URINE MANY /hpf; BLOOD, URINE TRACE (NEG); COMMENT (UR) CULTURE INDICATED; CULTURE IF INDICATED CULTURE INDICATED; GLUCOSE,URINE NEG (NEG); HYALINE CAST, URINE 1 /lpf (RARE); KETONE, URINE NEG (NEG); MUCUS URINE FEW /lpf (OCC); NITRITE,URINE POS (NEG); PH, URINE 6.5 (5.0-8.5); SQUAMOUS EPITHELIAL CELL URINE <1 /hpf (0-5); URINE COLOR YELLOW (YELLW/STRAW)
[2016-08-23 12:00] VITALS: BP 117/67; PULSE 97; RESP 16; TEMP 97.8; O2SAT 96
--- NOTE | 2016-08-23 14:31 | HHI.PR ---
Subjective Subjective Notes DAILY PROGRESS NOTE FOR SURGICAL ATTENDING, DR. LANDRY VELEZ Up at the bedside today Objective Vitals/I&O Vital Signs Date Time Temp Pulse Resp B/P Pulse Ox O2 Delivery O2 Flow Rate FiO2 08/23/16 12:00 97.8 97 16 117/67 96 Labs Laboratory Tests Test 08/23/16 08/23/16 06:30 10:20 White Blood Count 9.6 Red Blood Count 3.86 Hemoglobin 10.5 Hematocrit 32.3 Mean Corpuscular Volume 83.8 Mean Corpuscular Hemoglobin 27.1 Mean Corpuscular Hemoglobin 32.4 Concent Red Cell Distribution Width 17.2 Platelet Count 476 Mean Platelet Volume 7.0 Sodium Level 135 Potassium Level 4.3 Chloride Level 95 Carbon Dioxide Level 33.0 Anion Gap 7 Blood Urea Nitrogen 18 Creatinine 0.60 Estimat Glomerular Filtration 100 Rate Random Glucose 167 Calcium Level 9.0 Total Bilirubin 0.3 Aspartate Amino Transf 18 (AST/SGOT) Alanine Aminotransferase 27 (ALT/SGPT) Alkaline Phosphatase 268 Total Protein 6.7 Albumin 2.4 Urine Color YELLOW Urine Turbidity HAZY Urine pH 6.5 Urine Specific [place] 1.009 Urine Protein TRACE Urine Glucose (UA) NEG Urine Ketones NEG Urine Occult Blood TRACE Urine Nitrite POS Urine Bilirubin NEG Urine Urobilinogen LESS THAN 2.0 Urine Leukocyte Esterase LARGE Urine RBC 2 Urine WBC 127 Urine Squamous Epithelial <1 Cells Urine Bacteria MANY Urine Hyaline Casts 1 Urine Mucus FEW Microscopic Urinalysis Comment CULTURE INDICATED Date/Time Procedure Status Source Growth 08/23/16 10:20 Urine Culture Received Urine Clean Catch Pending Radiology Narrative Exam VAC dressing intact Discussed with Jane VAC therapy nurse changed today Reported wound getting smaller A/P Problem List: (1) Enterocutaneous fistula (2) Subcutaneous abscess (3) Abscess of abdominal wall Assessment and Plan 65-year-old female who recently had exploration in [place] with 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
[2016-08-23 16:00] VITALS: BP 115/56; PULSE 93; RESP 17; TEMP 97.2; O2SAT 96
[2016-08-23] MEDS: ENOXAPARIN SODIUM 40 MG/0.4 ML SYRINGE SQ SCH (17:55)
[2016-08-23] MEDS: CIPROFLOXACIN 400 MG PREMIX 200 ML IV SCH (17:56)
[2016-08-23 20:00] VITALS: BP 113/56; PULSE 101; RESP 17; TEMP 98.5; O2SAT 97
[2016-08-23] MEDS: SODIUM CHLORIDE 0.9% FLUSH 5 ML FLUSH IVF SCH (21:00)
[2016-08-23] MEDS: PRAMIPEXOLE DIHYDROCHLORIDE 0.25 MG TAB PO SCH (21:35)
[2016-08-23] MEDS: OCTREOTIDE INJ 100 MCG/ML VIAL IV PUSH SCH (21:36)
[2016-08-23] MEDS: CLINIMIX E 5/25 2000 mL- >42 mls/hr IV-CENTRAL SCH ×3 (21:37)
[2016-08-24] VITALS: BP 112/60; PULSE 102; RESP 17; TEMP 99; O2SAT 95
[2016-08-24] MEDS: ZOLPIDEM TARTRATE 5 MG TAB PO PRN ×2 (00:23→22:30)
[2016-08-24] MEDS: CIPROFLOXACIN 400 MG PREMIX 200 ML IV SCH ×2 (03:07→13:52)
[2016-08-24] MEDS: ACETAMINOPHEN/HYDROcodone 325 MG/7.5 MG TAB PO PRN ×5 (04:41→22:30)
[2016-08-24] MEDS: OCTREOTIDE INJ 100 MCG/ML VIAL IV PUSH SCH ×3 (04:41→21:42)
[2016-08-24 06:32] LABS: AUTOMATED NEUTROPHIL # 7.8 TH/MM3 (1.8-7.7); BASOPHIL # 0.1 TH/MM3 (0-0.2); BASOPHIL % 0.6 % (0.0-2.0); EOSINOPHIL # 0.6 TH/MM3 (0-0.4); EOSINOPHIL % 5.6 % (0.0-4.0); HEMATOCRIT 32.7 % (35.0-46.0); HEMO FLAGS DIFF FINAL; LYMPH % 11.2 % (9.0-44.0); LYMPHOCYTE # 1.2 TH/MM3 (1.0-4.8); MEAN CELL VOLUME 83.6 FL (80.0-100.0); MEAN CORPUSCULAR HEMOGLOBIN 27.3 PG (27.0-34.0); MEAN CORPUSCULAR HGB CONC 32.7 % (32.0-36.0); MONO % 9.9 % (0.0-8.0); NEUT % 72.7 % (16.0-70.0); PLATELET COUNT 477 TH/MM3 (150-450); RED BLOOD COUNT 3.92 MIL/MM3 (4.00-5.30); RED CELL DISTRIBUTION WIDTH 16.9 % (11.6-17.2); WHITE BLOOD COUNT 10.7 TH/MM3 (4.0-11.0)
[2016-08-24 07:01] LABS: ALT (GPT) 24 U/L (10-53); ANION GAP 9 MEQ/L (5-15); AST (GOT) 12 U/L (15-37); BICARBONATE 31.3 MEQ/L (21.0-32.0); BLOOD UREA NITROGEN 22 MG/DL (7-18); CHLORIDE 96 MEQ/L (98-107); GLOMERULAR FILTRATION RATE 118 ML/MIN (>89); POTASSIUM 4.4 MEQ/L (3.5-5.1); SODIUM (NA) 136 MEQ/L (136-145)
[2016-08-24 07:03] LABS: ALKALINE PHOSPHATASE 246 U/L (45-117); TOTAL BILIRUBIN ADULT 0.4 MG/DL (0.2-1.0)
[2016-08-24 08:00] VITALS: BP 137/62; PULSE 90; RESP 14; TEMP 98.1; O2SAT 96
--- NOTE | 2016-08-24 08:39 | HHI.FPPN ---
Subjective Remarks The patient is doing well this morning. She states last night she had some leakage from her wound VAC. However, she states the nurses were able to fix it. States her rashes are improving with the cream. She does not find the food appetizing. She is on a full diet, however she thinks a pure diet is best for her and that is what she has been ordering. She is getting up out of bed to chair 3 times a day and is working well with physical therapy. No cough , fever, chills. She continues to have dysuria. (Ian Genao MD R2) Objective Vitals Vital Signs Date Time Temp Pulse Resp B/P Pulse Ox O2 Delivery O2 Flow Rate FiO2 08/24/16 08:00 98.1 90 14 137/62 96 08/24/16 00:00 99.0 102 17 112/60 95 08/23/16 20:00 98.5 101 17 113/56 97 08/23/16 16:00 97.2 93 17 115/56 96 08/23/16 12:00 97.8 97 16 117/67 96 I/O 08/23/16 08/23/16 08/23/16 08/24/16 08/24/16 08/24/16 07:00 15:00 23:00 07:00 15:00 23:00 Intake Total 1164 ml 880 ml 1689 ml 695 ml Output Total 50 ml Balance 1114 ml 880 ml 1689 ml 695 ml Intake Oral 240 ml 880 ml 960 ml 240 ml IV Total 729 ml 455 ml TPN/PPN 677 ml Lipid 247 ml Drainage Total 50 ml # Voids 5 4 6 3 # Bowel Movements 0 (Ian Genao MD R2) Result Diagram: 08/24/1615 08/24/16614 Objective Remarks GENERAL: NAD, lying in bed SKIN: Warm and dry. Patient with ostomy bag and wound VAC covering repaired fistula; placed to continuous wall suction. Moderate erythema left lateral abdomen. Peripheral IV and PICC line in place in left arm. Patient with improved erythematous pruritic rash with satellite lesions in groin, axillary region and underneath her breasts. Also with erythematous 2 x 3 cm linear lesion along the back of her neck. HEENT: Normocephalic. Atraumatic. EOMI. No scleral icterus. No injection or drainage. No nasal drainage. Moist mucous membranes. CARDIOVASCULAR: Regular rate and rhythm without murmurs, gallops, or rubs RESPIRATORY: Clear to auscultation bilaterally GASTROINTESTINAL: Abdomen obese. See skin above. + bowel sounds. MUSCULOSKELETAL: No pitting edema of bilateral lower extremities. No calf tenderness. NEURO: Awake and alert. 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 Discharge Planning Pending clinical improvement and clearance by general surgery. PT recommends physical therapy at rehabilitation. Likely early next week to rehabilitation facility. Patient currently with 2 wound vacs and TPN (Ian Genao MD R2) Attending Attestation Patient seen and examined. Case reviewed and discussed Agree with plan of care as discussed with me and documented in the resident note. (Cassy Oliver MD) Problem List: (1) Enterocutaneous fistula Status: Acute Plan: General Surgery Consulted, appreciate recommendations and interventions 07/28: Status post incision and drainage and washout of left abdominal wall, with wound vac placement due to small bowel fistula Wound VAC changed at bedside by wound care team. -Pain control with [place] 7.5325 Q4hrs prn pain 610, morphine 2 mg IV q3h prn breakthrough, hold if SBP < 110 or DBP < 60 -Blood cultures no growth for 5 days -If pt has additional fevers consider blood culture, wound culture, antibiotics to cover for abdominal infection -Continue TPN with PICC line to reduce drainage and promote wound healing Imaging 07/28 - Abdomen/Pelvis CT: Diffuse and extensive subcutaneous emphysema around the abdominal wall from patient's right lateral abdominal wall across midline to left lateral abdominal wall. Fluid collection in anterior left abdominal wall suspicious for subcutaneous abscess. Nonspecific edema throughout subcutaneous tissues. No acute intra-abdominal or pelvic pathology. Prior antibiotics: - Vancomycin, pharm consult (07/28-08/13) - Cefepime 2gm IV q8h (07/28-08/13) - Flagyl 500 mg IV q6h (07/28-08/13) (2) Urinary tract infection Status: Acute Plan: 08/23 urinalysis shows nitrite and leukocyte esterase positive urine. Micro-pending On ciprofloxacin 400 mg IV every 12 hours (started 08/23) (3) Skin rash Status: Acute Plan: Patient with likely fungal rash in her axilla, groin and underneath her breasts. Also with lesion along the back of neck. Rashes improved with treatment as below Nystatin powder for groin, axilla, area under breasts Clotrimazole cream for back of neck (4) Physical deconditioning Status: Acute Plan: Patient physically deconditioned after staying in bed for extended period of time. Nursing order to get patient out of bed at least 3 times a day as tolerated with assistance -PT recommends PT at rehabilitation. Totally dependent. (5) Anemia Status: Acute Plan: -Currently stable. - Continue to monitor - Iron panel significant for anemia of chronic disease - B12 and Folate both elevated (6) Lower extremity edema Status: Resolved Plan: Resolved Patient with no pitting edema of bilateral lower extremities on exam. - SCDs - 20 mg Lasix po daily, 25 meq potassium (7) Nutrition, metabolism, and development symptoms Status: Acute Plan: Fluids: None at this time Electrolytes: Electrolytes within normal limits, continue to monitor and replete as necessary Nutrition: TPN and regular basic diet DVT PPX: SCDs and Lovenox; risk of DVT and PE greater than risk for chronic wound bleeding GI PPX: Pepcid (Ian Genao MD R2) Problem Qualifiers (1) Urinary tract infection: Qualified Code: N30.01 - Acute cystitis with hematuria (2) Anemia: Qualified Code: D64.9 - Anemia, unspecified type Ian Genao MD R2 Aug 24, 2016 08:39 Cassy Oliver MD Aug 24, 2016 13:38
[2016-08-24] MEDS: SODIUM CHLORIDE 0.9% FLUSH 5 ML FLUSH IVF SCH ×2 (09:00→21:43)
[2016-08-24] MEDS: LACTOBACILLUS ACIDOPHILUS TAB PO SCH ×3 (09:08→18:57)
[2016-08-24] MEDS: FUROSEMIDE 20 MG TAB PO SCH (09:09)
[2016-08-24] MEDS: POTASSIUM BICARBONATE 25 MEQ EFFERVESCENT TAB PO SCH (09:09)
[2016-08-24] MEDS: FAMOTIDINE 20 MG TAB PO SCH ×2 (09:09→21:42)
[2016-08-24] MEDS: NYSTATIN 100,000 U/GM PWD 15 GM BTL TOPICAL SCH ×2 (09:10→21:00)
[2016-08-24] MEDS: CLOTRIMAZOLE 1% CREAM 15 GM TOPICAL SCH ×2 (09:10→21:00)
[2016-08-24 09:19] VITALS: O2SAT 97
[2016-08-24 12:00] VITALS: BP 101/54; PULSE 86; RESP 14; TEMP 97.9; O2SAT 95
--- NOTE | 2016-08-24 12:21 | HHI.PR ---
Subjective Subjective Notes DAILY PROGRESS NOTE FOR SURGICAL ATTENDING, DR. LANDRY VELEZ Up to chair; eating breakfast Mr. Menard at bedside Objective Vitals/I&O Vital Signs Date Time Temp Pulse Resp B/P Pulse Ox O2 Delivery O2 Flow Rate FiO2 08/24/16 12:00 97.9 86 14 101/54 95 Labs Laboratory Tests Test 08/24/16 06:15 White Blood Count 10.7 Red Blood Count 3.92 Hemoglobin 10.7 Hematocrit 32.7 Mean Corpuscular Volume 83.6 Mean Corpuscular Hemoglobin 27.3 Mean Corpuscular Hemoglobin 32.7 Concent Red Cell Distribution Width 16.9 Platelet Count 477 Mean Platelet Volume 7.3 Neutrophils (%) (Auto) 72.7 Lymphocytes (%) (Auto) 11.2 Monocytes (%) (Auto) 9.9 Eosinophils (%) (Auto) 5.6 Basophils (%) (Auto) 0.6 Neutrophils # (Auto) 7.8 Lymphocytes # (Auto) 1.2 Monocytes # (Auto) 1.1 Eosinophils # (Auto) 0.6 Basophils # (Auto) 0.1 CBC Comment DIFF FINAL Differential Comment Sodium Level 136 Potassium Level 4.4 Chloride Level 96 Carbon Dioxide Level 31.3 Anion Gap 9 Blood Urea Nitrogen 22 Creatinine 0.52 Estimat Glomerular Filtration 118 Rate Random Glucose 168 Calcium Level 9.1 Total Bilirubin 0.4 Aspartate Amino Transf 12 (AST/SGOT) Alanine Aminotransferase 24 (ALT/SGPT) Alkaline Phosphatase 246 Total Protein 6.6 Albumin 2.4 Date/Time Procedure Status Source Growth 08/23/16 10:20 Urine Culture Received Urine Clean Catch Pending Radiology Cardiovascular: Regular Lungs: Clear Abdomen: Other (Wound vac in place; good seal ) Extremities: No edema A/P Problem List: (1) Enterocutaneous fistula (2) Subcutaneous abscess (3) Abscess of abdominal wall Assessment and Plan 65-year-old female who recently had exploration in [place] with 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 Saturday or Saturday of next week Attending Statement NOTE FOR SURGICAL ATTENDING, DR. LANDRY VELEZ I agree with above assessment and plan. Chart data review, vital sign assessments/reviewing monitor data Review of consultations notes if present. Medication orders/review and/or management Ordering and/or reviewing lab tests Ordering and/or interpreting/reviewing x-rays and/or diagnostic studies Care of the patient and discussion of the patient with the care team Documentation time To help prompt me to consider important information that might be impacting today's encounter and assessment, information from prior notes written by myself or my colleagues may have been "brought forward/copy and pasted" into today's note. Problem Qualifiers (1) Subcutaneous abscess: Arabella Pickering Aug 24, 2016 12:21 Landry Velez MD Aug 24, 2016 13:26
[2016-08-24] MEDS: ENOXAPARIN SODIUM 40 MG/0.4 ML SYRINGE SQ SCH (13:52)
[2016-08-24 16:00] VITALS: BP 111/59; PULSE 92; RESP 16; TEMP 97.3; O2SAT 94
[2016-08-24 20:00] VITALS: BP 115/60; PULSE 95; RESP 20; TEMP 98.9; O2SAT 96
[2016-08-24] MEDS: PRAMIPEXOLE DIHYDROCHLORIDE 0.25 MG TAB PO SCH (21:42)
[2016-08-24] MEDS: CLINIMIX E 5/25 2000 mL- >42 mls/hr IV-CENTRAL SCH ×3 (21:42)
[2016-08-25] VITALS: BP 104/47; PULSE 98; RESP 20; TEMP 98; O2SAT 96
[2016-08-25] MEDS: CIPROFLOXACIN 400 MG PREMIX 200 ML IV SCH ×2 (02:13→13:04)
[2016-08-25] MEDS: HYDROmorphone HCL PF 1 MG/ML VIAL IV PRN (05:24)
[2016-08-25] MEDS: OCTREOTIDE INJ 100 MCG/ML VIAL IV PUSH SCH ×3 (06:43→21:38)
[2016-08-25] MEDS ORDERED: ALTEPLASE RECOMBINANT 2 MG VIAL INTRACATH ONE ×2 (07:30→09:15)
[2016-08-25 08:00] VITALS: BP 100/59; PULSE 79; RESP 17; TEMP 98.3; O2SAT 94
--- NOTE | 2016-08-25 08:45 | HHI.FPPN ---
Subjective Remarks Patient states she had a bad night last night. She is frustrated that her weight psych keeps leaking. She states she will refuse this will therapy and getting out of bed today along with her diet to allow her wound to heal. She states her rash is improving for the most part, however she has a new fungal rash under her skin fold and right abdomen. Her mood is discouraged because of the wound. No fever, chills, cough, shortness of breath. Her dysuria is improved. (Ian Genao MD R2) Objective Vitals Vital Signs Date Time Temp Pulse Resp B/P Pulse Ox O2 Delivery O2 Flow Rate FiO2 08/25/16 00:00 98.0 98 20 104/47 96 08/24/16 23:37 18 08/24/16 20:00 98.9 95 20 115/60 96 08/24/16 16:00 97.3 92 16 111/59 94 08/24/16 12:00 97.9 86 14 101/54 95 08/24/16 09:19 97 I/O 08/24/16 08/24/16 08/24/16 08/25/16 08/25/16 08/25/16 07:00 15:00 23:00 07:00 15:00 23:00 Intake Total 695 ml 750 ml 1567 ml 1121 ml Output Total 1200 ml Balance 695 ml 750 ml 1567 ml -79 ml Intake Oral 240 ml 750 ml 240 ml 240 ml IV Total 455 ml 0 ml 209 ml TPN/PPN 1327 ml 672 ml Output Urine Total 1200 ml # Voids 3 4 1 (Ian Genao MD R2) Result Diagram: 08/24/1615 08/24/1615 Objective Remarks GENERAL: NAD, lying in bed SKIN: Warm and dry. Patient with ostomy bag and wound VAC covering repaired fistula; placed to continuous wall suction. Moderate erythema left lateral abdomen. Peripheral IV and PICC line in place in left arm. Patient with much improved erythematous pruritic rash with in groin, axillary region and underneath her breasts. Also with improved erythematous 1 x 2 cm linear lesion along the back of her neck. HEENT: Normocephalic. Atraumatic. EOMI. No scleral icterus. No injection or drainage. No nasal drainage. Moist mucous membranes. CARDIOVASCULAR: Regular rate and rhythm without murmurs, gallops, or rubs RESPIRATORY: Clear to auscultation bilaterally GASTROINTESTINAL: Abdomen obese. See skin above. + bowel sounds. MUSCULOSKELETAL: No pitting edema of bilateral lower extremities. No calf tenderness. NEURO: Awake and alert. 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 MEDICAL DETAILIST grossly intact. 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 Discharge Planning Pending clinical improvement and clearance by general surgery. PT recommends physical therapy at rehabilitation. Patient currently with 2 wound vacs and TPN. Surgery thinks likely discharge Saturday or Saturday of next week. 3008 filled out (Ian Genao MD R2) Problem List: (1) Enterocutaneous fistula Status: Acute Plan: General Surgery Consulted, appreciate recommendations and interventions 07/28: Status post incision and drainage and washout of left abdominal wall, with wound vac placement due to small bowel fistula Wound VAC changes at bedside by wound care team. -Pain control with [place] 7.5325 Q4hrs prn pain 610, morphine 2 mg IV q3h prn breakthrough, hold if SBP < 110 or DBP < 60 -Dilaudid when necessary with wound changes -Octreotide 100 g IV every 8 hours -Blood cultures no growth for 5 days -If pt has additional fevers consider blood culture, wound culture, antibiotics to cover for abdominal infection -Continue TPN with PICC line to reduce drainage and promote wound healing Imaging 07/28 - Abdomen/Pelvis CT: Diffuse and extensive subcutaneous emphysema around the abdominal wall from patient's right lateral abdominal wall across midline to left lateral abdominal wall. Fluid collection in anterior left abdominal wall suspicious for subcutaneous abscess. Nonspecific edema throughout subcutaneous tissues. No acute intra-abdominal or pelvic pathology. Prior antibiotics: - Vancomycin, pharm consult (07/28-08/13) - Cefepime 2gm IV q8h (07/28-08/13) - Flagyl 500 mg IV q6h (07/28-08/13) (2) Urinary tract infection Status: Acute Plan: 08/23 urinalysis shows nitrite and leukocyte esterase positive urine. Micro-during 3 mixed gram[place] [id number] and they state the predominant cultures Klebsiella. They will subculture this and have results by Saturday. Clinically patient is improving on ciprofloxacin. On ciprofloxacin 400 mg IV every 12 hours (started 08/23) (3) Skin rash Status: Acute Plan: Patient with improving fungal rash in her axilla and groin. New rash underneath her abdominal skin full. Nystatin powder for groin, axilla, area under breasts, and skin folds Clotrimazole cream for back of neck (4) Physical deconditioning Status: Acute Plan: Patient physically deconditioned after staying in bed for extended period of time. Nursing order to get patient out of bed at least 3 times a day as tolerated with assistance -PT recommends PT at rehabilitation. Totally dependent. (5) Anemia Status: Acute Plan: -Currently stable. - Continue to monitor - Iron panel significant for anemia of chronic disease - B12 and Folate both elevated (6) Lower extremity edema Status: Resolved Plan: Resolved Patient with no pitting edema of bilateral lower extremities on exam. - SCDs - 20 mg Lasix po daily, 25 meq potassium (7) Nutrition, metabolism, and development symptoms Status: Acute Plan: Fluids: None at this time Electrolytes: Electrolytes within normal limits, continue to monitor and replete as necessary Nutrition: TPN and regular diet per surgery DVT PPX: SCDs and Lovenox; risk of DVT and PE greater than risk for chronic wound bleeding GI PPX: Pepcid (Ian Genao MD R2) Problem Qualifiers (1) Urinary tract infection: Qualified Code: N30.01 - Acute cystitis with hematuria (2) Anemia: Qualified Code: D64.9 - Anemia, unspecified type Ina Genao MD R2 Aug 25, 2016 08:45 Cassy Oliver MD Aug 28, 2016 15:06
[2016-08-25] MEDS: NYSTATIN 100,000 U/GM PWD 15 GM BTL TOPICAL SCH ×2 (09:00→21:00)
[2016-08-25] MEDS: SODIUM CHLORIDE 0.9% FLUSH 5 ML FLUSH IVF SCH ×2 (09:00→21:34)
[2016-08-25] MEDS: POTASSIUM BICARBONATE 25 MEQ EFFERVESCENT TAB PO SCH (09:00)
[2016-08-25] MEDS: CLOTRIMAZOLE 1% CREAM 15 GM TOPICAL SCH ×2 (09:00→21:00)
[2016-08-25] MEDS: LACTOBACILLUS ACIDOPHILUS TAB PO SCH ×3 (09:40→18:00)
[2016-08-25] MEDS: FUROSEMIDE 20 MG TAB PO SCH (09:40)
[2016-08-25] MEDS: FAMOTIDINE 20 MG TAB PO SCH ×2 (09:40→21:35)
[2016-08-25] MEDS: ACETAMINOPHEN/HYDROcodone 325 MG/7.5 MG TAB PO PRN ×2 (09:51→23:06)
[2016-08-25 10:27] LABS: ALKALINE PHOSPHATASE 244 U/L (45-117); ALT (GPT) 25 U/L (10-53); ANION GAP 9 MEQ/L (5-15); AST (GOT) 17 U/L (15-37); BICARBONATE 30.3 MEQ/L (21.0-32.0); BLOOD UREA NITROGEN 19 MG/DL (7-18); CHLORIDE 96 MEQ/L (98-107); GLOMERULAR FILTRATION RATE 108 ML/MIN (>89); POTASSIUM 4.3 MEQ/L (3.5-5.1); SODIUM (NA) 135 MEQ/L (136-145); TOTAL BILIRUBIN ADULT 0.4 MG/DL (0.2-1.0)
[2016-08-25 12:00] VITALS: BP 121/65; PULSE 90; RESP 17; TEMP 98.5; O2SAT 95
[2016-08-25 15:00] VITALS: BP 108/52; PULSE 93; RESP 17; TEMP 98.5; O2SAT 97
[2016-08-25] MEDS: ENOXAPARIN SODIUM 40 MG/0.4 ML SYRINGE SQ SCH (15:50)
[2016-08-25 20:00] VITALS: BP 108/58; PULSE 95; RESP 18; TEMP 98.7; O2SAT 96
[2016-08-25] MEDS: CLINIMIX E 5/25 2000 mL- >42 mls/hr IV-CENTRAL SCH ×3 (21:34)
[2016-08-25] MEDS: PRAMIPEXOLE DIHYDROCHLORIDE 0.25 MG TAB PO SCH (21:35)
--- NOTE | 2016-08-25 22:57 | HHI.PR ---
Subjective Subjective Notes no new c/o Objective Vitals/I&O Vital Signs Date Time Temp Pulse Resp B/P Pulse Ox O2 Delivery O2 Flow Rate FiO2 08/25/16 15:00 98.5 93 17 108/52 97 Labs Laboratory Tests Test 08/25/16 09:27 Sodium Level 135 Potassium Level 4.3 Chloride Level 96 Carbon Dioxide Level 30.3 Anion Gap 9 Blood Urea Nitrogen 19 Creatinine 0.56 Estimat Glomerular Filtration 108 Rate Random Glucose 201 Calcium Level 8.5 Total Bilirubin 0.4 Aspartate Amino Transf 17 (AST/SGOT) Alanine Aminotransferase 25 (ALT/SGPT) Alkaline Phosphatase 244 Total Protein 6.4 Albumin 2.2 Date/Time Procedure Status Source Growth 08/23/16 10:20 Urine Culture - Preliminary Resulted Urine Clean Catch Gram Negative [facility] Abdomen: Non-distended, Non-tender Narrative Exam dressing in tact, no signs of infection A/P Problem List: (1) Enterocutaneous fistula (2) Subcutaneous abscess (3) Abscess of abdominal wall Assessment and Plan 65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 continue conservative management, dressings Problem Qualifiers (1) Subcutaneous abscess: Navin Mathews MD Aug 25, 2016 22:57
[2016-08-25] MEDS: ZOLPIDEM TARTRATE 5 MG TAB PO PRN (23:06)
[2016-08-26] VITALS: BP 114/57; PULSE 86; RESP 18; TEMP 97.4; O2SAT 96
[2016-08-26] MEDS: CIPROFLOXACIN 400 MG PREMIX 200 ML IV SCH ×2 (01:26→13:11)
[2016-08-26] MEDS: OCTREOTIDE INJ 100 MCG/ML VIAL IV PUSH SCH ×3 (05:53→21:32)
[2016-08-26 06:41] LABS: ALKALINE PHOSPHATASE 244 U/L (45-117); ALT (GPT) 24 U/L (10-53); ANION GAP 6 MEQ/L (5-15); AST (GOT) 14 U/L (15-37); BICARBONATE 32.7 MEQ/L (21.0-32.0); BLOOD UREA NITROGEN 20 MG/DL (7-18); CHLORIDE 96 MEQ/L (98-107); GLOMERULAR FILTRATION RATE 121 ML/MIN (>89); POTASSIUM 4.1 MEQ/L (3.5-5.1); SODIUM (NA) 135 MEQ/L (136-145); TOTAL BILIRUBIN ADULT 0.4 MG/DL (0.2-1.0)
[2016-08-26 07:00] LABS: BASOPHIL % 0.4 % (0.0-2.0); EOSINOPHIL # 0.6 TH/MM3 (0-0.4); EOSINOPHIL % 6.1 % (0.0-4.0); HEMATOCRIT 32.1 % (35.0-46.0); HEMO FLAGS DIFF FINAL; LYMPH % 16.4 % (9.0-44.0); LYMPHOCYTE # 1.7 TH/MM3 (1.0-4.8); MEAN CELL VOLUME 83.3 FL (80.0-100.0); MEAN CORPUSCULAR HEMOGLOBIN 26.8 PG (27.0-34.0); MEAN CORPUSCULAR HGB CONC 32.1 % (32.0-36.0); MONO % 9.2 % (0.0-8.0); NEUT % 67.9 % (16.0-70.0); PLATELET COUNT 468 TH/MM3 (150-450); RED BLOOD COUNT 3.86 MIL/MM3 (4.00-5.30); RED CELL DISTRIBUTION WIDTH 16.9 % (11.6-17.2); WHITE BLOOD COUNT 10.2 TH/MM3 (4.0-11.0)
[2016-08-26] MEDS: FUROSEMIDE 20 MG TAB PO SCH (07:54)
[2016-08-26] MEDS: LACTOBACILLUS ACIDOPHILUS TAB PO SCH ×3 (07:54→16:39)
[2016-08-26] MEDS: FAMOTIDINE 20 MG TAB PO SCH ×2 (07:54→20:43)
[2016-08-26] MEDS: SODIUM CHLORIDE 0.9% FLUSH 5 ML FLUSH IVF SCH ×2 (07:54→20:43)
[2016-08-26] MEDS: POTASSIUM BICARBONATE 25 MEQ EFFERVESCENT TAB PO SCH (07:54)
[2016-08-26] MEDS: NYSTATIN 100,000 U/GM PWD 15 GM BTL TOPICAL SCH ×2 (07:55→20:44)
[2016-08-26] MEDS: CLOTRIMAZOLE 1% CREAM 15 GM TOPICAL SCH ×2 (07:55→20:44)
[2016-08-26 08:00] VITALS: BP 117/64; PULSE 91; RESP 17; TEMP 96.5; O2SAT 97
[2016-08-26 12:00] VITALS: BP 117/58; PULSE 88; RESP 17; TEMP 96.7; O2SAT 98
--- NOTE | 2016-08-26 12:19 | HHI.PR ---
Subjective Subjective Notes DAILY PROGRESS NOTE FOR SURGICAL ATTENDING, DR. LANDRY VELEZ has alittle nausea with the somatostatin Otherwise doing well Objective Vitals/I&O Vital Signs Date Time Temp Pulse Resp B/P Pulse Ox O2 Delivery O2 Flow Rate FiO2 08/26/16 08:00 96.5 91 17 117/64 97 Labs Laboratory Tests Test 08/26/16 06:00 White Blood Count 10.2 Red Blood Count 3.86 Hemoglobin 10.3 Hematocrit 32.1 Mean Corpuscular Volume 83.3 Mean Corpuscular Hemoglobin 26.8 Mean Corpuscular Hemoglobin 32.1 Concent Red Cell Distribution Width 16.9 Platelet Count 468 Mean Platelet Volume 7.1 Neutrophils (%) (Auto) 67.9 Lymphocytes (%) (Auto) 16.4 Monocytes (%) (Auto) 9.2 Eosinophils (%) (Auto) 6.1 Basophils (%) (Auto) 0.4 Neutrophils # (Auto) 7.0 Lymphocytes # (Auto) 1.7 Monocytes # (Auto) 0.9 Eosinophils # (Auto) 0.6 Basophils # (Auto) 0.0 CBC Comment DIFF FINAL Differential Comment Sodium Level 135 Potassium Level 4.1 Chloride Level 96 Carbon Dioxide Level 32.7 Anion Gap 6 Blood Urea Nitrogen 20 Creatinine 0.51 Estimat Glomerular Filtration 121 Rate Random Glucose 136 Calcium Level 8.7 Total Bilirubin 0.4 Aspartate Amino Transf 14 (AST/SGOT) Alanine Aminotransferase 24 (ALT/SGPT) Alkaline Phosphatase 244 Total Protein 6.7 Albumin 2.4 Date/Time Procedure Status Source Growth 08/23/16 10:20 Urine Culture - Preliminary Resulted Urine Clean Catch Gram Negative [facility] Narrative Exam VAC dressing intact Reported wound getting smaller A/P Problem List: (1) Enterocutaneous fistula (2) Subcutaneous abscess (3) Abscess of abdominal wall Assessment and Plan 65-year-old female who recently had exploration in [place] with 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
[2016-08-26] MEDS: ENOXAPARIN SODIUM 40 MG/0.4 ML SYRINGE SQ SCH (13:10)
[2016-08-26] MEDS: ACETAMINOPHEN/HYDROcodone 325 MG/7.5 MG TAB PO PRN ×2 (13:49→17:18)
[2016-08-26] MEDS: POLYETHYLENE GLYCOL 17 GM PKG PO SCH (14:00)
--- NOTE | 2016-08-26 14:01 | HHI.FPPN ---
Subjective Remarks No acute events overnight. Afebrile, vital signs stable. Patient requests MiraLAX to help her have bowel movements. Her axillary, groin and neck rash is improving and only remains in her left axilla. She has no other complaints at this time. Patient was up in the chair for over 2 hours this morning. (Ginette Herbert MD R3) Objective Vitals Vital Signs Date Time Temp Pulse Resp B/P Pulse Ox O2 Delivery O2 Flow Rate FiO2 08/26/16 12:00 96.7 88 17 117/58 98 08/26/16 08:00 96.5 91 17 117/64 97 08/26/16 00:00 97.4 86 18 114/57 96 08/25/16 20:00 98.7 95 18 108/58 96 08/25/16 15:00 98.5 93 17 108/52 97 I/O 08/25/16 08/25/16 08/25/16 08/26/16 08/26/16 08/26/16 07:00 15:00 23:00 07:00 15:00 23:00 Intake Total 1121 ml 340 ml 240 ml 730 ml 564 ml Output Total 1200 ml 600 ml 100 ml 625 ml 50 ml Balance -79 ml -260 ml 140 ml 105 ml 514 ml Intake Oral 240 ml 340 ml 240 ml 120 ml IV Total 209 ml 610 ml TPN/PPN 672 ml 564 ml Output Urine Total 1200 ml 600 ml Stool Total 100 ml 600 ml Drainage Total 25 ml 50 ml # Voids 2 2 # Bowel Movements 0 0 (Ginette Herbert MD R3) Result Diagram: 08/26/16 0608/26/16 0600 Objective Remarks GENERAL: NAD, lying in bed SKIN: Warm and dry. Patient with ostomy bag and wound VAC covering repaired fistula; placed to continuous wall suction. Moderate erythema left lateral abdomen. Peripheral IV and PICC line in place in left arm. Patient with much improved erythematous rash with in groin, left axilla. HEENT: Normocephalic. Atraumatic. EOMI. No scleral icterus. No injection or drainage. No nasal drainage. Moist mucous membranes. CARDIOVASCULAR: Regular rate and rhythm without murmurs, gallops, or rubs RESPIRATORY: Clear to auscultation bilaterally GASTROINTESTINAL: Abdomen obese. See skin above. + bowel sounds. MUSCULOSKELETAL: No pitting edema of bilateral lower extremities. No calf tenderness. NEURO: Awake and alert. 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 Discharge Planning Pending clinical improvement and clearance by general surgery. PT recommends physical therapy at rehabilitation. Patient currently with 2 wound vacs and TPN. Surgery thinks likely discharge Saturday or Saturday of next week. 3008 complete. (Ginette Herbert MD R3) Attending Attestation Patient seen and examined with the resident team. Case reviewed and discussed Agree with plan of care as discussed with me and documented in the resident note (Cassy Oliver MD) Problem List: (1) Enterocutaneous fistula Status: Acute Plan: General Surgery Consulted, appreciate recommendations and interventions 07/28: Status post incision and drainage and washout of left abdominal wall, with wound vac placement due to small bowel fistula Wound VAC changes at bedside by wound care team. -Pain control with [place] 7.5325 Q4hrs prn pain 610, morphine 2 mg IV q3h prn breakthrough, hold if SBP < 110 or DBP < 60 -Dilaudid when necessary with wound changes -Octreotide 100 g IV every 8 hours -Blood cultures no growth for 5 days -If pt has additional fevers consider blood culture, wound culture, antibiotics to cover for abdominal infection -Continue TPN with PICC line to reduce drainage and promote wound healing Imaging 07/28 - Abdomen/Pelvis CT: Diffuse and extensive subcutaneous emphysema around the abdominal wall from patient's right lateral abdominal wall across midline to left lateral abdominal wall. Fluid collection in anterior left abdominal wall suspicious for subcutaneous abscess. Nonspecific edema throughout subcutaneous tissues. No acute intra-abdominal or pelvic pathology. Prior antibiotics: - Vancomycin, pharm consult (07/28-08/13) - Cefepime 2gm IV q8h (07/28-08/13) - Flagyl 500 mg IV q6h (07/28-08/13) (2) Urinary tract infection Status: Acute Plan: 08/23 urinalysis shows nitrite and leukocyte esterase positive urine. Micro-during 3 mixed gram[place] [id number] and they state the predominant cultures Klebsiella. They will subculture this and have results by Saturday. Clinically patient is improving on ciprofloxacin. On ciprofloxacin 400 mg IV every 12 hours (started 08/23) Repeat UA 08/26 (3) Skin rash Status: Acute Plan: Patient with improving fungal rash in her axilla, groin under her breasts and on the back of her neck. Nystatin powder for groin, axilla, area under breasts, and skin folds Clotrimazole cream for back of neck (4) Physical deconditioning Status: Acute Plan: Patient physically deconditioned after staying in bed for extended period of time. Nursing order to get patient out of bed at least 3 times a day as tolerated with assistance -PT recommends PT at rehabilitation. Totally dependent. (5) Anemia Status: Acute Plan: -Currently stable. - Continue to monitor - Iron panel significant for anemia of chronic disease - B12 and Folate both elevated (6) Lower extremity edema Status: Resolved Plan: Resolved Patient with no pitting edema of bilateral lower extremities on exam. - SCDs - 20 mg Lasix po daily, 25 meq potassium (7) Nutrition, metabolism, and development symptoms Status: Acute Plan: Fluids: Hep-Lock IV Electrolytes: Electrolytes within normal limits, continue to monitor and replete as necessary Nutrition: TPN and regular diet per surgery DVT PPX: SCDs and Lovenox; risk of DVT and PE greater than risk for chronic wound bleeding GI PPX: Pepcid (Ginette Herbert MD R3) Problem Qualifiers (1) Urinary tract infection: Qualified Code: N30.01 - Acute cystitis with hematuria (2) Anemia: Qualified Code: D64.9 - Anemia, unspecified type Ginette Herbert MD R3 Aug 26, 2016 14:00 Cassy Oliver MD Aug 26, 2016 16:27
[2016-08-26 16:00] VITALS: BP 110/53; PULSE 90; RESP 17; TEMP 98.9; O2SAT 97
[2016-08-26 20:00] VITALS: BP 111/60; PULSE 82; RESP 20; TEMP 99.2; O2SAT 96
[2016-08-26] MEDS: FAT EMULSION 20% INJ 250 ML (Twice weekly over 8 hours) IV-CENTRAL SCH (20:42)
[2016-08-26] MEDS: CLINIMIX E 5/25 2000 mL- >42 mls/hr IV-CENTRAL SCH ×3 (20:42)
[2016-08-26] MEDS: PRAMIPEXOLE DIHYDROCHLORIDE 0.25 MG TAB PO SCH (20:43)
[2016-08-26] MEDS: ZOLPIDEM TARTRATE 5 MG TAB PO PRN (23:07)
[2016-08-27] VITALS: BP 132/60; PULSE 83; RESP 18; TEMP 97.7; O2SAT 96
[2016-08-27] MEDS: CIPROFLOXACIN 400 MG PREMIX 200 ML IV SCH ×2 (01:45→13:52)
[2016-08-27] MEDS: ACETAMINOPHEN/HYDROcodone 325 MG/7.5 MG TAB PO PRN ×5 (02:20→23:12)
[2016-08-27] MEDS: OCTREOTIDE INJ 100 MCG/ML VIAL IV PUSH SCH ×3 (05:53→21:17)
[2016-08-27 08:00] VITALS: BP 127/60; PULSE 86; RESP 17; TEMP 96.9; O2SAT 100
[2016-08-27] MEDS: POLYETHYLENE GLYCOL 17 GM PKG PO SCH (08:11)
[2016-08-27] MEDS: FAMOTIDINE 20 MG TAB PO SCH ×2 (08:11→21:17)
[2016-08-27] MEDS: LACTOBACILLUS ACIDOPHILUS TAB PO SCH ×3 (08:11→17:21)
[2016-08-27] MEDS: FUROSEMIDE 20 MG TAB PO SCH (08:11)
[2016-08-27] MEDS: POTASSIUM BICARBONATE 25 MEQ EFFERVESCENT TAB PO SCH (08:12)
[2016-08-27] MEDS: SODIUM CHLORIDE 0.9% FLUSH 5 ML FLUSH IVF SCH ×2 (08:12→21:21)
[2016-08-27] MEDS: NYSTATIN 100,000 U/GM PWD 15 GM BTL TOPICAL SCH ×2 (08:22→21:00)
[2016-08-27] MEDS: CLOTRIMAZOLE 1% CREAM 15 GM TOPICAL SCH ×2 (08:22→21:00)
--- NOTE | 2016-08-27 09:37 | HHI.FPPN ---
Subjective Remarks Patient reports her wound is better. She believes eating causes her when to get worse. She is getting out of bed to go to the bathroom and at other times to sit in the chair. She continues to have mild dysuria. She believes overall her fungal rashes have improved, however the right abdominal rash and under her left axilla are "more annoying." No chest pain, nausea, vomiting, shortness of breath. (Ian Genao MD R2) Objective Vitals Vital Signs Date Time Temp Pulse Resp B/P Pulse Ox O2 Delivery O2 Flow Rate FiO2 08/27/16 08:00 96.9 86 17 127/60 100 08/27/16 00:00 97.7 83 18 132/60 96 08/26/16 20:00 99.2 82 20 111/60 96 08/26/16 16:00 98.9 90 17 110/53 97 08/26/16 12:00 96.7 88 17 117/58 98 I/O 08/26/16 08/26/16 08/26/16 08/27/16 08/27/16 08/27/16 07:00 15:00 23:00 07:00 15:00 23:00 Intake Total 730 ml 804 ml 561 ml 120 ml Output Total 625 ml 650 ml 950 ml 500 ml Balance 105 ml 154 ml -389 ml -380 ml Intake Oral 120 ml 240 ml 120 ml 120 ml IV Total 610 ml 441 ml TPN/PPN 564 ml Output Urine Total 600 ml 950 ml 500 ml Stool Total 600 ml Drainage Total 25 ml 50 ml # Voids 2 # Bowel Movements 0 0 0 0 (Ian Genao MD R2) Result Diagram: 08/26/16 0608/26/16 0600 Objective Remarks GENERAL: NAD, lying in bed SKIN: Warm and dry. Patient with ostomy bag and wound VAC covering repaired fistula; placed to continuous wall suction. Moderate erythema left lateral abdomen. Peripheral IV and PICC line in place in left arm. Patient with much improved erythematous rash with in groin, left axilla. HEENT: Normocephalic. Atraumatic. EOMI. No scleral icterus. No injection or drainage. No nasal drainage. Moist mucous membranes. CARDIOVASCULAR: Regular rate and rhythm without murmurs, gallops, or rubs RESPIRATORY: Clear to auscultation bilaterally GASTROINTESTINAL: Abdomen obese. See skin above. + bowel sounds. MUSCULOSKELETAL: No pitting edema of bilateral lower extremities. No calf tenderness. NEURO: Awake and alert. 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 Discharge Planning Pending clinical improvement and clearance by general surgery. PT recommends physical therapy at rehabilitation. Patient currently with 2 wound vacs and TPN. Surgery thinks likely discharge Saturday or Saturday of next week. 3008 complete. (Ian Genao MD R2) Attending Attestation Patient seen and examined. Case reviewed and discussed Agree with plan of care as discussed with me and documented in the resident note (Cassy Oliver MD) Problem List: (1) Enterocutaneous fistula Status: Acute Plan: General Surgery Consulted, appreciate recommendations and interventions 07/28: Status post incision and drainage and washout of left abdominal wall, with wound vac placement due to small bowel fistula Wound VAC changes at bedside by wound care team. -Pain control with [place] 7.5325 Q4hrs prn pain 610, morphine 2 mg IV q3h prn breakthrough, hold if SBP < 110 or DBP < 60 -Dilaudid when necessary with wound changes -Octreotide 100 g IV every 8 hours -Blood cultures no growth for 5 days -If pt has additional fevers consider blood culture, wound culture, antibiotics to cover for abdominal infection -Continue TPN with PICC line to reduce drainage and promote wound healing Imaging 07/28 - Abdomen/Pelvis CT: Diffuse and extensive subcutaneous emphysema around the abdominal wall from patient's right lateral abdominal wall across midline to left lateral abdominal wall. Fluid collection in anterior left abdominal wall suspicious for subcutaneous abscess. Nonspecific edema throughout subcutaneous tissues. No acute intra-abdominal or pelvic pathology. Prior antibiotics: - Vancomycin, pharm consult (07/28-08/13) - Cefepime 2gm IV q8h (07/28-08/13) - Flagyl 500 mg IV q6h (07/28-08/13) (2) Urinary tract infection Status: Acute Plan: Urine culture Klebsiella Pansensitive Clinically patient is improving on ciprofloxacin. On ciprofloxacin 400 mg IV every 12 hours (started 08/23) (3) Skin rash Status: Acute Plan: Patient with improving fungal rash in her axilla, groin under her breasts and on the back of her neck. Given multiple rash locations and increased frustration, will start fluconazole 100 mg by mouth daily Nystatin powder for groin, axilla, area under breasts, and skin folds Clotrimazole cream for back of neck (4) Physical deconditioning Status: Acute Plan: Patient physically deconditioned after staying in bed for extended period of time. Nursing order to get patient out of bed at least 3 times a day as tolerated with assistance -PT recommends PT at rehabilitation. Totally dependent. (5) Anemia Status: Acute Plan: -Currently stable. - Continue to monitor - Iron panel significant for anemia of chronic disease - B12 and Folate both elevated (6) Lower extremity edema Status: Resolved Plan: Resolved Patient with no pitting edema of bilateral lower extremities on exam. - SCDs - 20 mg Lasix po daily, 25 meq potassium (7) Nutrition, metabolism, and development symptoms Status: Acute Plan: Fluids: Hep-Lock IV Electrolytes: Electrolytes within normal limits, continue to monitor and replete as necessary Nutrition: TPN and regular diet per surgery DVT PPX: SCDs and Lovenox; risk of DVT and PE greater than risk for chronic wound bleeding GI PPX: Pepcid (Ian Genao MD R2) Problem Qualifiers (1) Urinary tract infection: Qualified Code: N30.01 - Acute cystitis with hematuria (2) Anemia: Qualified Code: D64.9 - Anemia, unspecified type Ian Genao MD R2 Aug 27, 2016 09:37 Cassy Oliver MD Aug 28, 2016 14:52
[2016-08-27] MEDS ORDERED: FLUCONAZOLE 100 MG TAB PO SCH (09:45)
[2016-08-27 12:00] VITALS: BP 120/59; PULSE 86; RESP 18; TEMP 98; O2SAT 100
[2016-08-27] MEDS: ENOXAPARIN SODIUM 40 MG/0.4 ML SYRINGE SQ SCH (13:52)
[2016-08-27 16:00] VITALS: BP 107/52; PULSE 88; RESP 18; TEMP 96.9; O2SAT 95
[2016-08-27 20:00] VITALS: BP 113/55; PULSE 83; RESP 20; TEMP 97.5; O2SAT 95
[2016-08-27] MEDS: PRAMIPEXOLE DIHYDROCHLORIDE 0.25 MG TAB PO SCH (21:17)
[2016-08-27] MEDS: CLINIMIX E 5/25 2000 mL- >42 mls/hr IV-CENTRAL SCH ×3 (21:20)
[2016-08-27] MEDS: ZOLPIDEM TARTRATE 5 MG TAB PO PRN (23:07)
[2016-08-28 00:34] VITALS: BP 111/59; PULSE 83; RESP 18; TEMP 96.9; O2SAT 95
[2016-08-28] MEDS: CIPROFLOXACIN 400 MG PREMIX 200 ML IV SCH ×2 (02:37→14:14)
[2016-08-28 04:00] VITALS: BP 129/63; PULSE 78; RESP 16; TEMP 97.3; O2SAT 98
[2016-08-28] MEDS: OCTREOTIDE INJ 100 MCG/ML VIAL IV PUSH SCH ×3 (05:32→20:33)
[2016-08-28] MEDS: ACETAMINOPHEN/HYDROcodone 325 MG/7.5 MG TAB PO PRN ×5 (05:32→22:49)
[2016-08-28 06:00] LABS: ALKALINE PHOSPHATASE 240 U/L (45-117); ALT (GPT) 25 U/L (10-53); ANION GAP 6 MEQ/L (5-15); AST (GOT) 16 U/L (15-37); BLOOD UREA NITROGEN 19 MG/DL (7-18); CHLORIDE 98 MEQ/L (98-107); GLOMERULAR FILTRATION RATE 90 ML/MIN (>89); POTASSIUM 4.4 MEQ/L (3.5-5.1); SODIUM (NA) 137 MEQ/L (136-145); TOTAL BILIRUBIN ADULT 0.3 MG/DL (0.2-1.0)
[2016-08-28 08:30] VITALS: BP 111/58; PULSE 82; RESP 17; TEMP 97.7; O2SAT 93
[2016-08-28] MEDS: NYSTATIN 100,000 U/GM PWD 15 GM BTL TOPICAL SCH ×2 (09:00→20:32)
--- NOTE | 2016-08-28 09:04 | HHI.FPPN ---
Subjective Remarks Ms Navarro was sitting up in a chair this morning. She said that overall, things are headed in the right direction. However, she still has burning after she pees from the fungal infection in her groin. The affected areas under her left arm and back are much better. The abdominal wound leaked a little but was doing much better. She does not have much of an appetite and does not want have much taste for the food that is offered. (Estefani Willett MD R1) Objective Vitals Vital Signs Date Time Temp Pulse Resp B/P Pulse Ox O2 Delivery O2 Flow Rate FiO2 08/28/16 04:00 97.3 78 16 129/63 98 08/28/16 00:39 18 08/28/16 00:34 96.9 83 18 111/59 95 08/27/16 20:00 97.5 83 20 113/55 95 08/27/16 16:00 96.9 88 18 107/52 95 08/27/16 12:00 98.0 86 18 120/59 100 I/O 08/27/16 08/27/16 08/27/16 08/28/16 08/28/16 08/28/16 07:00 15:00 23:00 07:00 15:00 23:00 Intake Total 120 ml 1298 ml 517 ml 833 ml Output Total 500 ml 250 ml 195 ml 25 ml Balance -380 ml 1048 ml 322 ml 808 ml Intake Oral 120 ml 500 ml IV Total 200 ml 0 ml 205 ml TPN/PPN 598 ml 517 ml 628 ml Output Urine Total 500 ml 250 ml Drainage Total 195 ml 25 ml # Voids 3 2 4 # Bowel Movements 0 0 0 0 (Estefani Willett MD R1) Result Diagram: 08/26/16 0600 08/28/16 0520 Objective Remarks GENERAL: NAD, sitting in chair, spouse at bedside SKIN: Warm and dry. Patient with ostomy bag and wound VAC covering repaired fistula; placed to continuous wall suction. Mild erythema left lateral abdomen. Peripheral IV and PICC line in place in left arm. Patient with much improved erythematous rash with in groin, left axilla. HEENT: Normocephalic. Atraumatic. EOMI. No scleral icterus. No injection or drainage. No nasal drainage. Moist mucous membranes. CARDIOVASCULAR: Regular rate and rhythm without murmurs, gallops, or rubs RESPIRATORY: Clear to auscultation bilaterally GASTROINTESTINAL: Abdomen obese. See skin above. + bowel sounds. MUSCULOSKELETAL: No pitting edema of bilateral lower extremities. No calf tenderness. NEURO: Awake and alert. 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 Discharge Planning Pending clinical improvement and clearance by general surgery. PT recommends physical therapy at rehabilitation. Patient currently with 2 wound vacs and TPN. Surgery thinks likely discharge Saturday or Saturday of next week. 3008 complete. (Estefani Willett MD R1) Attending Attestation Patient seen and examined Case reviewed and discussed Agree with plan of care as discussed with me and documented in the resident note. (Cassy Oliver MD) Problem List: (1) Enterocutaneous fistula Status: Acute Plan: General Surgery Consulted, appreciate recommendations and interventions 07/28: Status post incision and drainage and washout of left abdominal wall, with wound vac placement due to small bowel fistula Wound VAC changes at bedside by wound care team. -Pain control with [place] 7.5325 Q4hrs prn pain 610, morphine 2 mg IV q3h prn breakthrough, hold if SBP < 110 or DBP < 60 -Dilaudid when necessary with wound changes -Octreotide 100 g IV every 8 hours -Blood cultures no growth for 5 days -If pt has additional fevers consider blood culture, wound culture, antibiotics to cover for abdominal infection -Continue TPN with PICC line to reduce drainage and promote wound healing Imaging 07/28 - Abdomen/Pelvis CT: Diffuse and extensive subcutaneous emphysema around the abdominal wall from patient's right lateral abdominal wall across midline to left lateral abdominal wall. Fluid collection in anterior left abdominal wall suspicious for subcutaneous abscess. Nonspecific edema throughout subcutaneous tissues. No acute intra-abdominal or pelvic pathology. Prior antibiotics: - Vancomycin, pharm consult (07/28-08/13) - Cefepime 2gm IV q8h (07/28-08/13) - Flagyl 500 mg IV q6h (07/28-08/13) (2) Urinary tract infection Status: Acute Plan: Urine culture Klebsiella Pansensitive Clinically patient is improving on ciprofloxacin On ciprofloxacin 400 mg IV every 12 hours (started 08/23) (3) Skin rash Status: Acute Plan: Patient with rash under her breasts and on the back of her neck. Rash in groin area is worse - will make sure that antifungal cream is applied properly to the area Given multiple rash locations and increased frustration, will start fluconazole 200 mg by mouth daily Nystatin powder for groin, axilla, area under breasts, and skin folds Clotrimazole cream for back of neck (4) Physical deconditioning Status: Acute Plan: Patient physically deconditioned after staying in bed for extended period of time. Nursing order to get patient out of bed at least 3 times a day as tolerated with assistance -PT recommends PT at rehabilitation. Totally dependent. (5) Anemia Status: Acute Plan: -Currently stable. - Continue to monitor - Iron panel significant for anemia of chronic disease - B12 and Folate both elevated (6) Lower extremity edema Status: Resolved Plan: Resolved Patient with no pitting edema of bilateral lower extremities on exam. - SCDs - 20 mg Lasix po daily, 25 meq potassium (7) Nutrition, metabolism, and development symptoms Status: Acute Plan: Fluids: Hep-Lock IV Electrolytes: Electrolytes within normal limits, continue to monitor and replete as necessary Nutrition: TPN and regular diet per surgery DVT PPX: SCDs and Lovenox; risk of DVT and PE greater than risk for chronic wound bleeding GI PPX: Pepcid (Estefani Willett MD R1) Problem Qualifiers (1) Urinary tract infection: Qualified Code: N30.01 - Acute cystitis with hematuria (2) Anemia: Qualified Code: D64.9 - Anemia, unspecified type Estefani Willett MD R1 Aug 28, 2016 09:04 Cassy Oliver MD Aug 31, 2016 10:29
[2016-08-28] MEDS: LACTOBACILLUS ACIDOPHILUS TAB PO SCH ×3 (09:36→18:00)
[2016-08-28] MEDS: FUROSEMIDE 20 MG TAB PO SCH (09:36)
[2016-08-28] MEDS: POTASSIUM BICARBONATE 25 MEQ EFFERVESCENT TAB PO SCH (09:36)
[2016-08-28] MEDS: FLUCONAZOLE 200 MG TAB PO SCH (09:36)
[2016-08-28] MEDS: SODIUM CHLORIDE 0.9% FLUSH 5 ML FLUSH IVF SCH ×2 (09:37→20:32)
[2016-08-28] MEDS: FAMOTIDINE 20 MG TAB PO SCH ×2 (09:37→20:32)
[2016-08-28] MEDS: CLOTRIMAZOLE 1% CREAM 15 GM TOPICAL SCH ×2 (09:42→20:32)
--- NOTE | 2016-08-28 11:34 | HHI.PR ---
Subjective Subjective Notes DAILY PROGRESS NOTE FOR SURGICAL ATTENDING, DR. LANDRY VELEZ Resting in bed Inquiring about rehab timing Objective Vitals/I&O Vital Signs Date Time Temp Pulse Resp B/P Pulse Ox O2 Delivery O2 Flow Rate FiO2 08/28/16 11:09 18 08/28/16 08:30 97.7 82 111/58 93 Labs Laboratory Tests Test 08/28/16 05:20 Sodium Level 137 Potassium Level 4.4 Chloride Level 98 Carbon Dioxide Level 33.0 Anion Gap 6 Blood Urea Nitrogen 19 Creatinine 0.66 Estimat Glomerular Filtration 90 Rate Random Glucose 171 Calcium Level 8.7 Total Bilirubin 0.3 Aspartate Amino Transf 16 (AST/SGOT) Alanine Aminotransferase 25 (ALT/SGPT) Alkaline Phosphatase 240 Total Protein 6.9 Albumin 2.4 Radiology Cardiovascular: Regular Lungs: Clear Abdomen: Other (Wound vac in place ) Extremities: No edema A/P Problem List: (1) Enterocutaneous fistula (2) Subcutaneous abscess (3) Abscess of abdominal wall Assessment and Plan 65-year-old female who recently had exploration in [place] with 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 LANDRY VELEZ I agree with above assessment and plan. The exam, history, and the medical decision-making described in the above note were completed with the assistance of the mid-level provider. I reviewed and agree with the findings presented. I attest that I had a [id number] encounter with the patient on the same day, and personally performed and documented my assessment and findings in the medical record. The following services were provided during this hospital visit: Chart data review, vital sign assessments/reviewing monitor data Review of consultations notes if present. Medication orders/review and/or management Ordering and/or reviewing lab tests Ordering and/or interpreting/reviewing x-rays and/or diagnostic studies Care of the patient and discussion of the patient with the care team Documentation time To help prompt me to consider important information that might be impacting today's encounter and assessment, information from prior notes written by myself or my colleagues may have been "brought forward/copy and pasted" into today's note. Problem Qualifiers (1) Subcutaneous abscess: Arabella Pickering Aug 28, 2016 11:33 Landry Velez MD Aug 28, 2016 11:58
[2016-08-28 12:30] VITALS: BP 115/59; PULSE 86; RESP 18; TEMP 97.4; O2SAT 99
[2016-08-28] MEDS: ENOXAPARIN SODIUM 40 MG/0.4 ML SYRINGE SQ SCH (14:15)
[2016-08-28 17:11] VITALS: BP 103/53; PULSE 88; RESP 16; TEMP 97.7; O2SAT 98
[2016-08-28 20:00] VITALS: BP 114/59; PULSE 84; RESP 17; TEMP 99.1; O2SAT 98
[2016-08-28] MEDS: CLINIMIX E 5/25 2000 mL- >42 mls/hr IV-CENTRAL SCH ×3 (20:30)
[2016-08-28] MEDS: PRAMIPEXOLE DIHYDROCHLORIDE 0.25 MG TAB PO SCH (20:32)
[2016-08-28] MEDS: ONDANSETRON HCL 4 MG/2 ML VIAL IV PUSH PRN (20:41)
[2016-08-28] MEDS: HYDROmorphone HCL PF 1 MG/ML VIAL IV PRN (21:58)
[2016-08-28] MEDS: ZOLPIDEM TARTRATE 5 MG TAB PO PRN (22:49)
[2016-08-29] VITALS: BP 120/78; PULSE 98; RESP 17; TEMP 100.5; O2SAT 98
[2016-08-29] MEDS: CIPROFLOXACIN 400 MG PREMIX 200 ML IV SCH ×2 (03:07→12:40)
[2016-08-29] MEDS: ONDANSETRON HCL 4 MG/2 ML VIAL IV PUSH PRN (05:49)
[2016-08-29] MEDS: OCTREOTIDE INJ 100 MCG/ML VIAL IV PUSH SCH ×3 (05:49→21:49)
[2016-08-29 08:00] VITALS: BP 105/58; PULSE 92; RESP 17; TEMP 96.9; O2SAT 94
--- NOTE | 2016-08-29 08:06 | HHI.FPPN ---
Subjective Remarks Fever of 100.5 around midnight last night. Patient states she's had some chills , but is otherwise "feeling good." She continues to have a mildly productive cough but nothing new. She now does not complain of urinary problems. She is getting out of bed and sitting to the chair at least 3 times a day. She states her rashes have improved. She is using the incentive spirometer. She denies fevers, chest pain, shortness of breath, headache. (Ian Genao MD R2) Objective Vitals Vital Signs Date Time Temp Pulse Resp B/P Pulse Ox O2 Delivery O2 Flow Rate FiO2 08/29/16 00:30 18 08/29/16 00:00 100.5 98 17 120/78 98 08/28/16 22:46 18 08/28/16 20:00 99.1 84 17 114/59 98 08/28/16 17:11 97.7 88 16 103/53 98 08/28/16 12:30 97.4 86 18 115/59 99 08/28/16 08:30 97.7 82 17 111/58 93 I/O 08/28/16 08/28/16 08/28/16 08/29/16 08/29/16 08/29/16 07:00 15:00 23:00 07:00 15:00 23:00 Intake Total 833 ml 1477 ml 658 ml 1234 ml Output Total 25 ml 25 ml 20 ml 20 ml Balance 808 ml 1452 ml 638 ml 1214 ml Intake Oral 500 ml 240 ml 240 ml IV Total 205 ml 200 ml 0 ml 241 ml TPN/PPN 628 ml 777 ml 418 ml 753 ml Drainage Total 25 ml 25 ml 20 ml 20 ml # Voids 4 4 2 2 # Bowel Movements 0 0 (Ian Genao MD R2) Result Diagram: 08/26/16 0600 08/28/16 0520 Objective Remarks GENERAL: NAD, sitting in chair, spouse at bedside SKIN: Warm and dry. Patient with ostomy bag and wound VAC covering repaired fistula; placed to continuous wall suction. Mild erythema left lateral abdomen. Peripheral IV and PICC line in place in left arm. Patient with much improved erythematous rash with in groin, left axilla. HEENT: Normocephalic. Atraumatic. EOMI. No scleral icterus. No injection or drainage. No nasal drainage. Moist mucous membranes. CARDIOVASCULAR: Regular rate and rhythm without murmurs, gallops, or rubs RESPIRATORY: Clear to auscultation bilaterally GASTROINTESTINAL: Abdomen obese. See skin above. + bowel sounds. MUSCULOSKELETAL: No pitting edema of bilateral lower extremities. No calf tenderness. NEURO: Awake and alert. 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 Patient with a fever overnight. We'll order CBC, CMP, repeat blood cultures, chest x-ray. Discharge Planning Pending clinical improvement and clearance by general surgery. PT recommends physical therapy at rehabilitation. Patient currently with 2 wound vacs and TPN. Surgery thinks likely discharge later this week. 3008 complete. (Ian Genao MD R2) Attending Attestation Patient seen and examined with the resident team. Case reviewed and discussed Agree with plan of care as discussed with me and documented in the resident note. (Cassy Oliver MD) Problem List: (1) Enterocutaneous fistula Status: Acute Plan: General Surgery Consulted, appreciate recommendations and interventions 07/28: Status post incision and drainage and washout of left abdominal wall, with wound vac placement due to small bowel fistula Wound VAC changes at bedside by wound care team. -Pain control with [place] 7.5325 Q4hrs prn pain 610, morphine 2 mg IV q3h prn breakthrough, hold if SBP < 110 or DBP < 60 -Dilaudid when necessary with wound changes -Octreotide 100 g IV every 8 hours -Blood cultures no growth for 5 days -If pt has additional fevers consider blood culture, wound culture, antibiotics to cover for abdominal infection -Continue TPN with PICC line to reduce drainage and promote wound healing Imaging 07/28 - Abdomen/Pelvis CT: Diffuse and extensive subcutaneous emphysema around the abdominal wall from patient's right lateral abdominal wall across midline to left lateral abdominal wall. Fluid collection in anterior left abdominal wall suspicious for subcutaneous abscess. Nonspecific edema throughout subcutaneous tissues. No acute intra-abdominal or pelvic pathology. Prior antibiotics: - Vancomycin, pharm consult (07/28-08/13) - Cefepime 2gm IV q8h (07/28-08/13) - Flagyl 500 mg IV q6h (07/28-08/13) (2) Urinary tract infection Status: Acute Plan: Urine culture Klebsiella Pansensitive Clinically patient is improving on ciprofloxacin On ciprofloxacin 400 mg IV every 12 hours (started 08/23) (3) Skin rash Status: Acute Plan: Rashes improving -fluconazole 200 mg by mouth daily Nystatin powder for groin, axilla, area under breasts, and skin folds Clotrimazole cream for back of neck (4) Physical deconditioning Status: Acute Plan: Patient physically deconditioned after staying in bed for extended period of time. Nursing order to get patient out of bed at least 3 times a day as tolerated with assistance -PT recommends PT at rehabilitation. Totally dependent. (5) Anemia Status: Acute Plan: -Currently stable. - Continue to monitor - Iron panel significant for anemia of chronic disease - B12 and Folate both elevated (6) Lower extremity edema Status: Resolved Plan: Resolved Patient with no pitting edema of bilateral lower extremities on exam. - SCDs - 20 mg Lasix po daily, 25 meq potassium (7) Nutrition, metabolism, and development symptoms Status: Acute Plan: Fluids: Hep-Lock IV Electrolytes: Electrolytes within normal limits, continue to monitor and replete as necessary Nutrition: TPN and regular diet per surgery DVT PPX: SCDs and Lovenox; risk of DVT and PE greater than risk for chronic wound bleeding GI PPX: Pepcid (Ian Genao MD R2) Problem Qualifiers (1) Urinary tract infection: Qualified Code: N30.01 - Acute cystitis with hematuria (2) Anemia: Qualified Code: D64.9 - Anemia, unspecified type Ian Genao MD R2 Aug 29, 2016 08:06 Cassy Oliver MD Aug 31, 2016 10:29
[2016-08-29 08:44] LABS: AUTOMATED NEUTROPHIL # 5.6 TH/MM3 (1.8-7.7); BASOPHIL % 0.6 % (0.0-2.0); EOSINOPHIL # 0.1 TH/MM3 (0-0.4); EOSINOPHIL % 0.9 % (0.0-4.0); HEMATOCRIT 33.3 % (35.0-46.0); HEMO FLAGS DIFF FINAL; LYMPH % 11.2 % (9.0-44.0); LYMPHOCYTE # 0.8 TH/MM3 (1.0-4.8); MEAN CELL VOLUME 83.1 FL (80.0-100.0); MEAN CORPUSCULAR HEMOGLOBIN 27.4 PG (27.0-34.0); MONO % 8.4 % (0.0-8.0); NEUT % 78.9 % (16.0-70.0); PLATELET COUNT 418 TH/MM3 (150-450); RED CELL DISTRIBUTION WIDTH 17.3 % (11.6-17.2)
[2016-08-29] MEDS: POTASSIUM BICARBONATE 25 MEQ EFFERVESCENT TAB PO SCH (09:00)
[2016-08-29] MEDS: NYSTATIN 100,000 U/GM PWD 15 GM BTL TOPICAL SCH ×2 (09:00→21:00)
[2016-08-29] MEDS: CLOTRIMAZOLE 1% CREAM 15 GM TOPICAL SCH ×2 (09:00→21:55)
--- NOTE | 2016-08-29 09:10 | RADRPT ---
EXAM DATE/TIME: 08/29/2016 08:24 [facility] COMPARISON: CHEST SINGLE AP, August 15, 2016, 16:48. INDICATIONS : Fever. MEDICAL HISTORY : Lupus. Diverticulosis. SURGICAL HISTORY : Gastric bypass. Inguinal hernia repair. Colostomy reversal ENCOUNTER: Initial ACUITY: 2 days PAIN SCORE: 0/10 LOCATION: Bilateral chest FINDINGS: PICC line is in good position. The lungs are clear. The heart and pulmonary vascularity are normal. Portions of the bony skeleton visualized are unremarkable. CONCLUSION: Stable chest without infiltrate. Shen Scott MD FACR on August 29, 2016 at 8:42 Board Certified Radiologist. This report was verified electronically.
[2016-08-29 09:21] LABS: ALKALINE PHOSPHATASE 261 U/L (45-117); ALT (GPT) 28 U/L (10-53); ANION GAP 8 MEQ/L (5-15); AST (GOT) 21 U/L (15-37); BICARBONATE 29.6 MEQ/L (21.0-32.0); BLOOD UREA NITROGEN 21 MG/DL (7-18); CHLORIDE 94 MEQ/L (98-107); GLOMERULAR FILTRATION RATE 79 ML/MIN (>89); POTASSIUM 4.8 MEQ/L (3.5-5.1); SODIUM (NA) 132 MEQ/L (136-145); TOTAL BILIRUBIN ADULT 0.5 MG/DL (0.2-1.0)
[2016-08-29] MEDS: FUROSEMIDE 20 MG TAB PO SCH (09:26)
[2016-08-29] MEDS: LACTOBACILLUS ACIDOPHILUS TAB PO SCH ×3 (09:26→17:45)
[2016-08-29] MEDS: FAMOTIDINE 20 MG TAB PO SCH ×2 (09:26→21:36)
[2016-08-29] MEDS: FLUCONAZOLE 200 MG TAB PO SCH (09:26)
[2016-08-29] MEDS: SODIUM CHLORIDE 0.9% FLUSH 5 ML FLUSH IVF SCH ×2 (09:26→21:37)
[2016-08-29] MEDS: ACETAMINOPHEN/HYDROcodone 325 MG/7.5 MG TAB PO PRN ×3 (11:16→21:36)
[2016-08-29 12:00] VITALS: BP 110/58; PULSE 95; RESP 18; TEMP 98; O2SAT 94
[2016-08-29] MEDS: ENOXAPARIN SODIUM 40 MG/0.4 ML SYRINGE SQ SCH (15:43)
[2016-08-29 16:00] VITALS: BP 115/58; PULSE 92; RESP 19; TEMP 98.8; O2SAT 96
[2016-08-29 20:00] VITALS: BP 129/59; PULSE 96; RESP 20; TEMP 98; O2SAT 96
[2016-08-29] MEDS: PRAMIPEXOLE DIHYDROCHLORIDE 0.25 MG TAB PO SCH (21:36)
[2016-08-29] MEDS: FAT EMULSION 20% INJ 250 ML (Twice weekly over 8 hours) IV-CENTRAL SCH (21:49)
[2016-08-29] MEDS: CLINIMIX E 5/25 2000 mL- >42 mls/hr IV-CENTRAL SCH ×3 (21:49)
[2016-08-29] MEDS: ZOLPIDEM TARTRATE 5 MG TAB PO PRN (23:16)
[2016-08-30] VITALS: BP 124/62; PULSE 92; RESP 20; TEMP 97.2; O2SAT 95
[2016-08-30] MEDS: OCTREOTIDE INJ 100 MCG/ML VIAL IV PUSH SCH ×2 (02:38→21:02)
[2016-08-30] MEDS: CIPROFLOXACIN 400 MG PREMIX 200 ML IV SCH ×2 (02:40→12:43)
[2016-08-30] MEDS: ACETAMINOPHEN/HYDROcodone 325 MG/7.5 MG TAB PO PRN ×5 (06:19→22:38)
[2016-08-30 06:33] LABS: HEMATOCRIT 32.6 % (35.0-46.0); MEAN CELL VOLUME 82.7 FL (80.0-100.0); MEAN CORPUSCULAR HGB CONC 33.8 % (32.0-36.0); PLATELET COUNT 385 TH/MM3 (150-450); RED BLOOD COUNT 3.94 MIL/MM3 (4.00-5.30); RED CELL DISTRIBUTION WIDTH 17.5 % (11.6-17.2); REVIEW FLAG FINAL; WHITE BLOOD COUNT 7.3 TH/MM3 (4.0-11.0)
[2016-08-30 07:01] LABS: ANION GAP 9 MEQ/L (5-15); AST (GOT) 23 U/L (15-37); BICARBONATE 29.3 MEQ/L (21.0-32.0); BLOOD UREA NITROGEN 18 MG/DL (7-18); CHLORIDE 96 MEQ/L (98-107); GLOMERULAR FILTRATION RATE 93 ML/MIN (>89); POTASSIUM 4.1 MEQ/L (3.5-5.1); SODIUM (NA) 134 MEQ/L (136-145)
[2016-08-30 07:05] LABS: ALKALINE PHOSPHATASE 236 U/L (45-117); ALT (GPT) 28 U/L (10-53); TOTAL BILIRUBIN ADULT 0.4 MG/DL (0.2-1.0)
[2016-08-30 07:45] VITALS: TEMP 101
[2016-08-30 08:00] VITALS: BP 105/56; PULSE 105; RESP 17; TEMP 97.8; O2SAT 96
[2016-08-30] MEDS: FAMOTIDINE 20 MG TAB PO SCH ×2 (08:18→21:01)
[2016-08-30] MEDS: LACTOBACILLUS ACIDOPHILUS TAB PO SCH ×3 (08:18→16:48)
[2016-08-30] MEDS: FUROSEMIDE 20 MG TAB PO SCH (08:18)
[2016-08-30] MEDS: FLUCONAZOLE 200 MG TAB PO SCH (08:18)
[2016-08-30] MEDS: POTASSIUM BICARBONATE 25 MEQ EFFERVESCENT TAB PO SCH (08:19)
[2016-08-30] MEDS: SODIUM CHLORIDE 0.9% FLUSH 5 ML FLUSH IVF SCH ×2 (08:21→21:01)
[2016-08-30] MEDS: CLOTRIMAZOLE 1% CREAM 15 GM TOPICAL SCH ×2 (08:22→21:03)
[2016-08-30] MEDS: NYSTATIN 100,000 U/GM PWD 15 GM BTL TOPICAL SCH ×2 (08:22→21:00)
[2016-08-30 12:00] VITALS: BP 113/62; PULSE 108; RESP 16; TEMP 99.6; O2SAT 96
[2016-08-30 13:49] LABS: BACTERIA, URINE RARE /hpf; BLOOD, URINE NEG (NEG); COMMENT (UR) CATH-CULTURE IND; CULTURE IF INDICATED CATH CULTURE IND; GLUCOSE,URINE NEG (NEG); HYALINE CAST, URINE 4 /lpf (RARE); KETONE, URINE NEG (NEG); MUCUS URINE FEW /lpf (OCC); NITRITE,URINE NEG (NEG); RENAL EPITHELIAL CELLS <1 /hpf; SQUAMOUS EPITHELIAL CELL URINE 1 /hpf (0-5); TRANSITIONAL EPI CELLS, URINE <1 /hpf; URINE COLOR YELLOW (YELLW/STRAW)
--- NOTE | 2016-08-30 14:27 | HHI.FPPN ---
Subjective Remarks Patient states her rash is much better today. She states she had a low-grade temperature this morning. She is having a headache. Her dysuria has improved. She is getting up and working with physical therapy. She is using the incentive spirometer as directed. No chest pain, nausea, vomiting. (Ian Genao MD R2) Objective Vitals Vital Signs Date Time Temp Pulse Resp B/P Pulse Ox O2 Delivery O2 Flow Rate FiO2 08/30/16 12:00 99.6 108 16 113/62 96 08/30/16 08:00 97.8 105 17 105/56 96 08/30/16 00:00 97.2 92 20 124/62 95 08/29/16 20:00 98.0 96 20 129/59 96 08/29/16 16:00 98.8 92 19 115/58 96 I/O 08/29/16 08/29/16 08/29/16 08/30/16 08/30/16 08/30/16 07:00 15:00 23:00 07:00 15:00 23:00 Intake Total 1234 ml 1443 ml 1017 ml 1260 ml Output Total 20 ml 1275 ml 850 ml 910 ml Balance 1214 ml 168 ml 167 ml 350 ml Intake Oral 240 ml 740 ml 460 ml 220 ml IV Total 241 ml 591 ml 557 ml 1040 ml TPN/PPN 753 ml 112 ml Output Urine Total 625 ml 850 ml 750 ml Drainage Total 20 ml 650 ml 160 ml # Voids 2 5 # Bowel Movements 0 0 0 (Ian Genao MD R2) Result Diagram: 08/30/16 0504 08/30/16 0504 Objective Remarks GENERAL: NAD, sitting in chair SKIN: Warm and dry. Patient with ostomy bag and wound VAC covering repaired fistula; placed to continuous wall suction. Mild erythema left lateral abdomen. Peripheral IV and PICC line in place in left arm. Patient with much improved erythematous rash with in groin, left axilla. HEENT: Normocephalic. Atraumatic. EOMI. No scleral icterus. No injection or drainage. No nasal drainage. Moist mucous membranes. CARDIOVASCULAR: Regular rate and rhythm without murmurs, gallops, or rubs RESPIRATORY: Clear to auscultation bilaterally GASTROINTESTINAL: Abdomen obese. See skin above. + bowel sounds. MUSCULOSKELETAL: No pitting edema of bilateral lower extremities. No calf tenderness. NEURO: Awake and alert. 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 LEAF COVERER grossly intact. 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 Discharge Planning Pending clinical improvement and clearance by general surgery. PT recommends physical therapy at rehabilitation. Patient currently with 2 wound vacs and TPN. Surgery thinks likely discharge later this week. 3008 complete. (Ian Genao MD R2) Attending Attestation Patient seen and examined with the resident team. Case reviewed and discussed Agree with plan of care as discussed with me and documented in the resident note. (Cassy Oliver MD) Problem List: (1) Enterocutaneous fistula Status: Acute Plan: General Surgery Consulted, appreciate recommendations and interventions 07/28: Status post incision and drainage and washout of left abdominal wall, with wound vac placement due to small bowel fistula Wound VAC changes at bedside by wound care team. -Pain control with [place] 7.5325 Q4hrs prn pain 610, morphine 2 mg IV q3h prn breakthrough, hold if SBP < 110 or DBP < 60 -Dilaudid when necessary with wound changes -Octreotide 100 g IV every 8 hours -Blood cultures no growth for 5 days -If pt has additional fevers consider blood culture, wound culture, antibiotics to cover for abdominal infection -Continue TPN with PICC line to reduce drainage and promote wound healing Imaging 07/28 - Abdomen/Pelvis CT: Diffuse and extensive subcutaneous emphysema around the abdominal wall from patient's right lateral abdominal wall across midline to left lateral abdominal wall. Fluid collection in anterior left abdominal wall suspicious for subcutaneous abscess. Nonspecific edema throughout subcutaneous tissues. No acute intra-abdominal or pelvic pathology. Prior antibiotics: - Vancomycin, pharm consult (07/28-08/13) - Cefepime 2gm IV q8h (07/28-08/13) - Flagyl 500 mg IV q6h (07/28-08/13) (2) Urinary tract infection Status: Acute Plan: Urine culture Klebsiella Pansensitive Clinically patient is improving on ciprofloxacin On ciprofloxacin 400 mg IV every 12 hours (started 08/23) (3) Skin rash Status: Acute Plan: Rashes improving -fluconazole 200 mg by mouth daily Nystatin powder for groin, axilla, area under breasts, and skin folds Clotrimazole cream for back of neck (4) Physical deconditioning Status: Acute Plan: Patient physically deconditioned after staying in bed for extended period of time. Nursing order to get patient out of bed at least 3 times a day as tolerated with assistance -PT recommends PT at rehabilitation. Totally dependent. (5) Anemia Status: Acute Plan: -Currently stable. - Continue to monitor - Iron panel significant for anemia of chronic disease - B12 and Folate both elevated (6) Nutrition, metabolism, and development symptoms Status: Acute Plan: Fluids: Hep-Lock IV Electrolytes: Electrolytes within normal limits, continue to monitor and replete as necessary Nutrition: TPN and regular diet per surgery DVT PPX: SCDs and Lovenox; risk of DVT and PE greater than risk for chronic wound bleeding GI PPX: Pepcid (7) Lower extremity edema Status: Resolved Plan: Resolved Patient with no pitting edema of bilateral lower extremities on exam. - SCDs - 20 mg Lasix po daily, 25 meq potassium (Ian Genao MD R2) Problem Qualifiers (1) Urinary tract infection: Qualified Code: N30.01 - Acute cystitis with hematuria (2) Anemia: Qualified Code: D64.9 - Anemia, unspecified type Ian Genao MD R2 Aug 30, 2016 14:27 Cassy Oliver MD Aug 31, 2016 10:29
[2016-08-30 16:00] VITALS: BP 109/62; PULSE 104; RESP 16; TEMP 99.6; O2SAT 94
--- NOTE | 2016-08-30 16:27 | HHI.PR ---
Subjective Subjective Notes DAILY PROGRESS NOTE FOR SURGICAL ATTENDING, DR. LANDRY VELEZ Reports a fever this morning No appetite Objective Vitals/I&O Vital Signs Date Time Temp Pulse Resp B/P Pulse Ox O2 Delivery O2 Flow Rate FiO2 08/30/16 16:00 99.6 104 16 109/62 94 Labs Laboratory Tests Test 08/30/16 08/30/16 05:04 13:02 White Blood Count 7.3 Red Blood Count 3.94 Hemoglobin 11.0 Hematocrit 32.6 Mean Corpuscular Volume 82.7 Mean Corpuscular Hemoglobin 28.0 Mean Corpuscular Hemoglobin 33.8 Concent Red Cell Distribution Width 17.5 Platelet Count 385 Mean Platelet Volume 7.2 Sodium Level 134 Potassium Level 4.1 Chloride Level 96 Carbon Dioxide Level 29.3 Anion Gap 9 Blood Urea Nitrogen 18 Creatinine 0.64 Estimat Glomerular Filtration 93 Rate Random Glucose 129 Calcium Level 8.6 Total Bilirubin 0.4 Aspartate Amino Transf 23 (AST/SGOT) Alanine Aminotransferase 28 (ALT/SGPT) Alkaline Phosphatase 236 Total Protein 6.6 Albumin 2.3 Urine Color YELLOW Urine Turbidity CLEAR Urine pH 6.0 Urine Specific [place] 1.013 Urine Protein 30 Urine Glucose (UA) NEG Urine Ketones NEG Urine Occult Blood NEG Urine Nitrite NEG Urine Bilirubin NEG Urine Urobilinogen LESS THAN 2.0 Urine Leukocyte Esterase TRACE Urine RBC 1 Urine WBC 6 Urine Squamous Epithelial 1 Cells Urine Transitional Epithelial <1 Cells Urine Renal Epithelial Cells <1 Urine Bacteria RARE Urine Hyaline Casts 4 Urine Mucus FEW Microscopic Urinalysis Comment CATH-CULTURE IND Date/Time Procedure Status Source Growth 08/30/16 13:02 Urine Culture Received Urine Catheterized Urine Pending 08/29/16 08:10 Aerobic Blood Culture - Preliminary Resulted Blood Peripheral NO GROWTH IN 1 DAY 08/29/16 08:10 Anaerobic Blood Culture - Preliminary Resulted Blood Peripheral NO GROWTH IN 1 DAY Radiology Cardiovascular: Regular Lungs: Clear Abdomen: Other (large wound vac in place ) Extremities: No edema A/P Problem List: (1) Enterocutaneous fistula (2) Subcutaneous abscess (3) Abscess of abdominal wall Assessment and Plan 65-year-old female who recently had exploration in [place] with 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 LANDRY VELEZ I agree with above assessment and plan. The exam, history, and the medical decision-making described in the above note were completed with the assistance of the mid-level provider. I reviewed and agree with the findings presented. I attest that I had a [id number] encounter with the patient on the same day, and personally performed and documented my assessment and findings in the medical record. VAC in place Discussed with Jane the wound therapy nurse Wound progressing granulating healing The following services were provided during this hospital visit: Chart data review, vital sign assessments/reviewing monitor data Review of consultations notes if present. Medication orders/review and/or management Ordering and/or reviewing lab tests Ordering and/or interpreting/reviewing x-rays and/or diagnostic studies Care of the patient and discussion of the patient with the care team Documentation time To help prompt me to consider important information that might be impacting today's encounter and assessment, information from prior notes written by myself or my colleagues may have been "brought forward/copy and pasted" into today's note. Problem Qualifiers (1) Subcutaneous abscess: Arabella Pickering Aug 30, 2016 16:27 Landry Velez MD Aug 31, 2016 12:48
[2016-08-30] MEDS: ENOXAPARIN SODIUM 40 MG/0.4 ML SYRINGE SQ SCH (16:48)
[2016-08-30 20:00] VITALS: BP 115/58; PULSE 94; RESP 20; TEMP 100; O2SAT 97
[2016-08-30] MEDS: PRAMIPEXOLE DIHYDROCHLORIDE 0.25 MG TAB PO SCH (21:01)
[2016-08-30] MEDS: ZOLPIDEM TARTRATE 5 MG TAB PO PRN (22:37)
[2016-08-30] MEDS: CLINIMIX E 5/25 2000 mL- >42 mls/hr IV-CENTRAL SCH ×3 (22:38)
[2016-08-31] VITALS: BP 120/66; PULSE 92; RESP 18; TEMP 98.8; O2SAT 96
[2016-08-31] MEDS: CIPROFLOXACIN 400 MG PREMIX 200 ML IV SCH ×2 (00:13→11:56)
[2016-08-31] MEDS: OCTREOTIDE INJ 100 MCG/ML VIAL IV PUSH SCH ×3 (06:23→20:48)
[2016-08-31 06:55] LABS: AUTOMATED NEUTROPHIL # 5.2 TH/MM3 (1.8-7.7); BASOPHIL # 0.1 TH/MM3 (0-0.2); BASOPHIL % 0.8 % (0.0-2.0); EOSINOPHIL # 0.2 TH/MM3 (0-0.4); EOSINOPHIL % 3.1 % (0.0-4.0); HEMATOCRIT 33.6 % (35.0-46.0); HEMO FLAGS DIFF FINAL; LYMPH % 15.3 % (9.0-44.0); LYMPHOCYTE # 1.1 TH/MM3 (1.0-4.8); MEAN CELL VOLUME 83.4 FL (80.0-100.0); MEAN CORPUSCULAR HEMOGLOBIN 26.6 PG (27.0-34.0); MEAN CORPUSCULAR HGB CONC 31.9 % (32.0-36.0); MONO % 8.1 % (0.0-8.0); NEUT % 72.7 % (16.0-70.0); PLATELET COUNT 358 TH/MM3 (150-450); RED BLOOD COUNT 4.03 MIL/MM3 (4.00-5.30); RED CELL DISTRIBUTION WIDTH 17.2 % (11.6-17.2); WHITE BLOOD COUNT 7.2 TH/MM3 (4.0-11.0)
[2016-08-31 07:22] LABS: ALKALINE PHOSPHATASE 253 U/L (45-117); ALT (GPT) 31 U/L (10-53); ANION GAP 9 MEQ/L (5-15); AST (GOT) 28 U/L (15-37); BICARBONATE 29.1 MEQ/L (21.0-32.0); BLOOD UREA NITROGEN 20 MG/DL (7-18); CHLORIDE 95 MEQ/L (98-107); GLOMERULAR FILTRATION RATE 82 ML/MIN (>89); POTASSIUM 3.9 MEQ/L (3.5-5.1); SODIUM (NA) 133 MEQ/L (136-145); TOTAL BILIRUBIN ADULT 0.5 MG/DL (0.2-1.0)
[2016-08-31 08:00] VITALS: BP 111/63; PULSE 92; RESP 16; TEMP 98.2; O2SAT 97
[2016-08-31] MEDS: FAMOTIDINE 20 MG TAB PO SCH ×2 (08:50→20:47)
[2016-08-31] MEDS: LACTOBACILLUS ACIDOPHILUS TAB PO SCH ×3 (08:50→15:29)
[2016-08-31] MEDS: FUROSEMIDE 20 MG TAB PO SCH (08:50)
[2016-08-31] MEDS: CLOTRIMAZOLE 1% CREAM 15 GM TOPICAL SCH ×2 (08:51→20:48)
[2016-08-31] MEDS: FLUCONAZOLE 200 MG TAB PO SCH (08:51)
[2016-08-31] MEDS: POTASSIUM BICARBONATE 25 MEQ EFFERVESCENT TAB PO SCH (08:51)
[2016-08-31] MEDS: SODIUM CHLORIDE 0.9% FLUSH 5 ML FLUSH IVF SCH ×2 (08:51→20:47)
[2016-08-31] MEDS: NYSTATIN 100,000 U/GM PWD 15 GM BTL TOPICAL SCH ×2 (08:51→20:49)
--- NOTE | 2016-08-31 08:52 | HHI.FPPN ---
Subjective Remarks She is doing well this morning. No chest pain, shortness of breath. Low-grade temperature overnight. She is using the incentive spirometer. Repeat urinalysis is improved. She reports no dysuria. She states the wound care teams think her wound is looking better. No increased pain or erythema at that location. She is still not eating. She tried ensure shakes yesterday and this resulted in irritation of her wound site. (Ian Genao MD R2) Objective Vitals Vital Signs Date Time Temp Pulse Resp B/P Pulse Ox O2 Delivery O2 Flow Rate FiO2 08/31/16 00:00 98.8 92 18 120/66 96 08/30/16 23:38 20 08/30/16 20:00 100.0 94 20 115/58 97 08/30/16 16:00 99.6 104 16 109/62 94 08/30/16 12:00 99.6 108 16 113/62 96 I/O 08/30/16 08/30/16 08/30/16 08/31/16 08/31/16 08/31/16 07:00 15:00 23:00 07:00 15:00 23:00 Intake Total 1260 ml 825 ml 220 ml 838 ml Output Total 910 ml 725 ml 650 ml 160 ml 50 ml Balance 350 ml 100 ml -430 ml -160 ml 788 ml Intake Oral 220 ml 120 ml 220 ml IV Total 1040 ml 195 ml 250 ml TPN/PPN 510 ml 588 ml Output Urine Total 750 ml 600 ml 650 ml 160 ml Drainage Total 160 ml 125 ml 50 ml # Bowel Movements 0 0 0 0 (Ian Genao MD R2) Result Diagram: 08/31/1662408/31/16624 Objective Remarks GENERAL: NAD, sitting in chair SKIN: Warm and dry. Patient with ostomy bag and wound VAC covering repaired fistula; placed to continuous wall suction. Mild erythema left lateral abdomen. Peripheral IV and PICC line in place in left arm. Patient with much improved erythematous rash with in groin, left axilla. HEENT: Normocephalic. Atraumatic. EOMI. No scleral icterus. No injection or drainage. No nasal drainage. Moist mucous membranes. CARDIOVASCULAR: Regular rate and rhythm without murmurs, gallops, or rubs RESPIRATORY: Clear to auscultation bilaterally GASTROINTESTINAL: Abdomen obese. See skin above. + bowel sounds. MUSCULOSKELETAL: No pitting edema of bilateral lower extremities. No calf tenderness. NEURO: Awake and alert. 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 BUSINESS ACCOUNT SPECIALIST grossly intact. 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 Discharge Planning Pending clinical improvement and clearance by general surgery. PT recommends physical therapy at rehabilitation. Patient currently with 2 wound vacs and TPN. Surgery thinks likely discharge later this week. 3008 complete. (Ian Genao MD R2) Attending Attestation Patient seen and examined Case reviewed and discussed Agree with plan of care as discussed with me and documented in the resident note. (Cassy Oliver MD) Problem List: (1) Enterocutaneous fistula Status: Acute Plan: General Surgery Consulted, appreciate recommendations and interventions 07/28: Status post incision and drainage and washout of left abdominal wall, with wound vac placement due to small bowel fistula Wound VAC changes at bedside by wound care team. -Pain control with [place] 7.5325 Q4hrs prn pain 610, morphine 2 mg IV q3h prn breakthrough, hold if SBP < 110 or DBP < 60 -Dilaudid when necessary with wound changes -Octreotide 100 g IV every 8 hours -Blood cultures no growth for 5 days -If pt has additional fevers consider blood culture, wound culture, antibiotics to cover for abdominal infection -Continue TPN with PICC line to reduce drainage and promote wound healing Imaging 07/28 - Abdomen/Pelvis CT: Diffuse and extensive subcutaneous emphysema around the abdominal wall from patient's right lateral abdominal wall across midline to left lateral abdominal wall. Fluid collection in anterior left abdominal wall suspicious for subcutaneous abscess. Nonspecific edema throughout subcutaneous tissues. No acute intra-abdominal or pelvic pathology. Prior antibiotics: - Vancomycin, pharm consult (07/28-08/13) - Cefepime 2gm IV q8h (07/28-08/13) - Flagyl 500 mg IV q6h (07/28-08/13) (2) Urinary tract infection Status: Acute Plan: Urine culture Klebsiella Pansensitive Clinically patient is improving on ciprofloxacin On ciprofloxacin 400 mg IV every 12 hours (started 08/23) (3) Skin rash Status: Acute Plan: Rashes improving -fluconazole 200 mg by mouth daily Nystatin powder for groin, axilla, area under breasts, and skin folds Clotrimazole cream for back of neck (4) Physical deconditioning Status: Acute Plan: Patient physically deconditioned after staying in bed for extended period of time. Nursing order to get patient out of bed at least 3 times a day as tolerated with assistance -PT recommends PT at rehabilitation. Totally dependent. (5) Anemia Status: Acute Plan: -Currently stable. - Continue to monitor - Iron panel significant for anemia of chronic disease - B12 and Folate both elevated (6) Nutrition, metabolism, and development symptoms Status: Acute Plan: Fluids: Hep-Lock IV Electrolytes: Electrolytes within normal limits, continue to monitor and replete as necessary Nutrition: TPN and diet per surgery DVT PPX: SCDs and Lovenox; risk of DVT and PE greater than risk for chronic wound bleeding GI PPX: Pepcid (7) Lower extremity edema Status: Resolved Plan: Resolved Patient with no pitting edema of bilateral lower extremities on exam. - SCDs - 20 mg Lasix po daily, 25 meq potassium (Ian Genao MD R2) Problem Qualifiers (1) Urinary tract infection: Qualified Code: N30.01 - Acute cystitis with hematuria (2) Anemia: Qualified Code: D64.9 - Anemia, unspecified type Ian Genao MD R2 Aug 31, 2016 08:52 Cassy Oliver MD Aug 31, 2016 10:29
--- NOTE | 2016-08-31 10:59 | HHI.PR ---
Subjective Subjective Notes DAILY PROGRESS NOTE FOR SURGICAL ATTENDING, DR. LANDRY VELEZ Up to chair at bedside Feels better today Objective Vitals/I&O Vital Signs Date Time Temp Pulse Resp B/P Pulse Ox O2 Delivery O2 Flow Rate FiO2 08/31/16 08:00 98.2 92 16 111/63 97 Labs Laboratory Tests Test 08/30/16 08/31/16 13:02 06:25 Urine Color YELLOW Urine Turbidity CLEAR Urine pH 6.0 Urine Specific [place] 1.013 Urine Protein 30 Urine Glucose (UA) NEG Urine Ketones NEG Urine Occult Blood NEG Urine Nitrite NEG Urine Bilirubin NEG Urine Urobilinogen LESS THAN 2.0 Urine Leukocyte Esterase TRACE Urine RBC 1 Urine WBC 6 Urine Squamous Epithelial 1 Cells Urine Transitional Epithelial <1 Cells Urine Renal Epithelial Cells <1 Urine Bacteria RARE Urine Hyaline Casts 4 Urine Mucus FEW Microscopic Urinalysis Comment CATH-CULTURE IND White Blood Count 7.2 Red Blood Count 4.03 Hemoglobin 10.7 Hematocrit 33.6 Mean Corpuscular Volume 83.4 Mean Corpuscular Hemoglobin 26.6 Mean Corpuscular Hemoglobin 31.9 Concent Red Cell Distribution Width 17.2 Platelet Count 358 Mean Platelet Volume 7.0 Neutrophils (%) (Auto) 72.7 Lymphocytes (%) (Auto) 15.3 Monocytes (%) (Auto) 8.1 Eosinophils (%) (Auto) 3.1 Basophils (%) (Auto) 0.8 Neutrophils # (Auto) 5.2 Lymphocytes # (Auto) 1.1 Monocytes # (Auto) 0.6 Eosinophils # (Auto) 0.2 Basophils # (Auto) 0.1 CBC Comment DIFF FINAL Differential Comment Sodium Level 133 Potassium Level 3.9 Chloride Level 95 Carbon Dioxide Level 29.1 Anion Gap 9 Blood Urea Nitrogen 20 Creatinine 0.71 Estimat Glomerular Filtration 82 Rate Random Glucose 152 Calcium Level 8.6 Total Bilirubin 0.5 Aspartate Amino Transf 28 (AST/SGOT) Alanine Aminotransferase 31 (ALT/SGPT) Alkaline Phosphatase 253 Total Protein 6.8 Albumin 2.4 Date/Time Procedure Status Source Growth 08/30/16 13:02 Urine Culture Received Urine Catheterized Urine Pending 08/29/16 08:10 Aerobic Blood Culture - Preliminary Resulted Blood Peripheral NO GROWTH IN 1 DAY 08/29/16 08:10 Anaerobic Blood Culture - Preliminary Resulted Blood Peripheral NO GROWTH IN 1 DAY Radiology Cardiovascular: Regular Lungs: Clear Abdomen: Other (large wound vac in place ) Extremities: No edema A/P Problem List: (1) Enterocutaneous fistula (2) Subcutaneous abscess (3) Abscess of abdominal wall Assessment and Plan 65-year-old female who recently had exploration in [place] with 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
[2016-08-31] MEDS: ACETAMINOPHEN/HYDROcodone 325 MG/7.5 MG TAB PO PRN ×3 (11:56→23:48)
[2016-08-31 12:00] VITALS: BP 119/55; PULSE 102; RESP 16; TEMP 101.1; O2SAT 91
[2016-08-31] MEDS: ENOXAPARIN SODIUM 40 MG/0.4 ML SYRINGE SQ SCH (14:18)
[2016-08-31 16:00] VITALS: BP 104/52; PULSE 96; RESP 16; TEMP 99.4; O2SAT 96
[2016-08-31] MEDS ORDERED: cefTRIAXone INJ 1,000 MG in SODIUM CHLORIDE 0.9% INJ 100 ML IV SCH (17:00)
[2016-08-31 20:00] VITALS: BP 98/56; PULSE 110; RESP 18; TEMP 99.9; O2SAT 95
[2016-08-31] MEDS: CLINIMIX E 5/25 2000 mL- >42 mls/hr IV-CENTRAL SCH ×3 (20:46)
[2016-08-31] MEDS: PRAMIPEXOLE DIHYDROCHLORIDE 0.25 MG TAB PO SCH (20:47)
[2016-08-31] MEDS: ZOLPIDEM TARTRATE 5 MG TAB PO PRN ×2 (20:47→22:33)
--- NOTE | 2016-08-31 23:03 | RADRPT ---
EXAM DATE/TIME: 08/31/2016 21:56 [facility] COMPARISON: No previous studies available for comparison. INDICATIONS : Abscess vs cellulitis in abdominal wound. MEDICAL HISTORY : Hypercholesterolemia. Hypertension. Seizures. Pneumonia. Degenerative disc disease. Toxic shock syndr ome. SURGICAL HISTORY : Colostomy. Gastric bypass. Total knee replacement, left. Colectomy. ENCOUNTER: Initial ACUITY: 1 day PAIN SCORE: 6/10 LOCATION: Left lower quadrant AREA EVALUATED: Left lower quadrant of abdomen. FINDINGS: MASSES: None. FLUID COLLECTIONS: None. OTHER: Negative. CONCLUSION: Negative Shashi Mera MD on August 31, 2016 at 23:01 Board Certified Radiologist. This report was verified electronically.
[2016-09-01] VITALS: BP 103/49; PULSE 94; RESP 18; TEMP 98.8; O2SAT 95
[2016-09-01] MEDS: OCTREOTIDE INJ 100 MCG/ML VIAL IV PUSH SCH ×3 (04:59→21:00)
[2016-09-01 06:00] LABS: AUTOMATED NEUTROPHIL # 3.7 TH/MM3 (1.8-7.7); BASOPHIL % 0.5 % (0.0-2.0); EOSINOPHIL # 0.1 TH/MM3 (0-0.4); EOSINOPHIL % 2.6 % (0.0-4.0); HEMATOCRIT 32.4 % (35.0-46.0); HEMO FLAGS DIFF FINAL; LYMPH % 18.1 % (9.0-44.0); MEAN CELL VOLUME 82.8 FL (80.0-100.0); MEAN CORPUSCULAR HEMOGLOBIN 26.9 PG (27.0-34.0); MEAN CORPUSCULAR HGB CONC 32.5 % (32.0-36.0); MONO % 13.4 % (0.0-8.0); NEUT % 65.4 % (16.0-70.0); PLATELET COUNT 311 TH/MM3 (150-450); RED BLOOD COUNT 3.91 MIL/MM3 (4.00-5.30); WHITE BLOOD COUNT 5.7 TH/MM3 (4.0-11.0)
[2016-09-01 06:16] LABS: ALT (GPT) 34 U/L (10-53); ANION GAP 9 MEQ/L (5-15); AST (GOT) 24 U/L (15-37); BLOOD UREA NITROGEN 21 MG/DL (7-18); CHLORIDE 96 MEQ/L (98-107); GLOMERULAR FILTRATION RATE 98 ML/MIN (>89); POTASSIUM 3.8 MEQ/L (3.5-5.1); SODIUM (NA) 134 MEQ/L (136-145)
[2016-09-01 06:18] LABS: ALKALINE PHOSPHATASE 251 U/L (45-117); TOTAL BILIRUBIN ADULT 0.4 MG/DL (0.2-1.0)
[2016-09-01] MEDS: FLUCONAZOLE 200 MG TAB PO SCH (07:34)
[2016-09-01] MEDS: FUROSEMIDE 20 MG TAB PO SCH (07:34)
[2016-09-01] MEDS: FAMOTIDINE 20 MG TAB PO SCH ×2 (07:34→20:59)
[2016-09-01] MEDS: POTASSIUM BICARBONATE 25 MEQ EFFERVESCENT TAB PO SCH (07:34)
[2016-09-01] MEDS: LACTOBACILLUS ACIDOPHILUS TAB PO SCH ×3 (07:34→17:03)
[2016-09-01] MEDS: CLOTRIMAZOLE 1% CREAM 15 GM TOPICAL SCH ×2 (07:39→20:59)
[2016-09-01] MEDS: SODIUM CHLORIDE 0.9% FLUSH 5 ML FLUSH IVF SCH ×2 (07:40→20:59)
[2016-09-01] MEDS: NYSTATIN 100,000 U/GM PWD 15 GM BTL TOPICAL SCH ×2 (07:40→21:00)
[2016-09-01 08:00] VITALS: BP 102/55; PULSE 87; RESP 16; TEMP 97.7; O2SAT 97
--- NOTE | 2016-09-01 08:16 | HHI.FPPN ---
Subjective Remarks Ms Menard says she feels good except that the skin around her abdominal wound is very itchy and she still has burning on the skin of her groin area. Otherwise , she is holding up well and there have been no further leaks. She is going down for x-ray this morning. (Estefani Willett MD R1) Objective Vitals Vital Signs Date Time Temp Pulse Resp B/P Pulse Ox O2 Delivery O2 Flow Rate FiO2 09/01/16 00:00 98.8 94 18 103/49 95 08/31/16 20:00 99.9 110 18 98/56 95 08/31/16 16:00 99.4 96 16 104/52 96 08/31/16 12:00 101.1 102 16 119/55 91 I/O 08/31/16 08/31/16 08/31/16 09/01/16 09/01/16 09/01/16 07:00 15:00 23:00 07:00 15:00 23:00 Intake Total 1935 ml 1240 ml 940 ml Output Total 160 ml 250 ml 30 ml 300 ml Balance -160 ml 1685 ml 1210 ml 640 ml Intake Oral 340 ml 240 ml 240 ml IV Total 450 ml 0 ml TPN/PPN 1145 ml 1000 ml 700 ml Output Urine Total 160 ml 300 ml Drainage Total 250 ml 30 ml 0 ml # Voids 1 # Bowel Movements 0 (Estefani Willett MD R1) Result Diagram: 09/01/16 0520 09/01/16 0509 Objective Remarks GENERAL: NAD, sitting in chair SKIN: Warm and dry. Patient with ostomy bag and wound VAC covering repaired fistula; placed to continuous wall suction. Mild erythema left lateral abdomen. Peripheral IV and PICC line in place in left arm. Patient with much improved erythematous rash within groin, left axilla. HEENT: Normocephalic. Atraumatic. EOMI. No scleral icterus. No injection or drainage. No nasal drainage. Moist mucous membranes. CARDIOVASCULAR: Regular rate and rhythm without murmurs, gallops, or rubs RESPIRATORY: Clear to auscultation bilaterally GASTROINTESTINAL: Abdomen obese. See skin above. + bowel sounds. MUSCULOSKELETAL: No pitting edema of bilateral lower extremities. No calf tenderness. NEURO: Awake and alert. 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 MANAGER HEMATOLOGY grossly intact. 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 Discharge Planning Pending clinical improvement and clearance by general surgery. PT recommends physical therapy at rehabilitation. Patient currently with 2 wound vacs and TPN. Surgery thinks likely discharge next week. 3008 complete. (Estefani Willett MD R1) Attending Attestation Patient seen and examined with the resident team. Case reviewed and discussed Agree with plan of care as discussed with me and documented in the resident note. (Cassy Oliver MD) Problem List: (1) Enterocutaneous fistula Status: Acute Plan: General Surgery Consulted, appreciate recommendations and interventions 07/28: Status post incision and drainage and washout of left abdominal wall, with wound vac placement due to small bowel fistula Wound VAC changes at bedside by wound care team. -Pain control with [place] 7.5325 Q4hrs prn pain 610, morphine 2 mg IV q3h prn breakthrough, hold if SBP < 110 or DBP < 60 -Dilaudid when necessary with wound changes -Octreotide 100 g IV every 8 hours -Repeat blood cultures secondary to fever show no growth in 1 day -Chest x-ray repeated on 09/01 - no acute cardiopulmonary abnormality appreciated -Continue TPN with PICC line to reduce drainage and promote wound healing Imaging 07/28 - Abdomen/Pelvis CT: Diffuse and extensive subcutaneous emphysema around the abdominal wall from patient's right lateral abdominal wall across midline to left lateral abdominal wall. Fluid collection in anterior left abdominal wall suspicious for subcutaneous abscess. Nonspecific edema throughout subcutaneous tissues. No acute intra-abdominal or pelvic pathology. Prior antibiotics: - Vancomycin, pharm consult (07/28-08/13) - Cefepime 2gm IV q8h (07/28-08/13) - Flagyl 500 mg IV q6h (07/28-08/13) (2) Urinary tract infection Status: Resolved Plan: Urine culture Klebsiella Pansensitive Clinically improved on ciprofloxacin Currently on Rocephin 1 g every 24 hours IV - will discontinue if urine culture is negative on final report Ciprofloxacin discontinued on 08/31 (started 08/23) (3) Skin rash Status: Resolved Plan: Rashes improving -fluconazole 200 mg by mouth daily, day 4 Nystatin powder for groin, axilla, area under breasts, and skin folds Clotrimazole cream for back of neck (4) Physical deconditioning Status: Acute Plan: Patient physically deconditioned after staying in bed for extended period of time. Nursing order to get patient out of bed at least 3 times a day as tolerated with assistance -PT recommends PT at rehabilitation. Totally dependent. (5) Anemia Status: Acute Plan: -Currently stable. - Continue to monitor - Iron panel significant for anemia of chronic disease - B12 and Folate both elevated (6) Depression Status: Acute Plan: -Continue home Cymbalta 30 mg by mouth daily (7) Nutrition, metabolism, and development symptoms Status: Acute Plan: Fluids: Hep-Lock IV Electrolytes: Electrolytes within normal limits, continue to monitor and replete as necessary Nutrition: TPN and diet per surgery DVT PPX: SCDs and Lovenox; risk of DVT and PE greater than risk for chronic wound bleeding GI PPX: Pepcid (8) Lower extremity edema Status: Resolved Plan: Resolved Patient with no pitting edema of bilateral lower extremities on exam. - SCDs - 20 mg Lasix po daily, 25 meq potassium (Estefani Willett MD R1) Problem Qualifiers (1) Urinary tract infection: Qualified Code: N30.01 - Acute cystitis with hematuria (2) Anemia: Qualified Code: D64.9 - Anemia, unspecified type Estefani Willett MD R1 Sep 01, 2016 08:16 Cassy Oliver MD Sep 03, 2016 16:43
--- NOTE | 2016-09-01 08:47 | RADRPT ---
EXAM DATE/TIME: 09/01/2016 08:22 [facility] COMPARISON: CHEST SINGLE AP, August 29, 2016, 8:24. INDICATIONS : Fever. Evaluate for pneumonia. MEDICAL HISTORY : Lupus. Diverticulosis. SURGICAL HISTORY : None. ENCOUNTER: Initial ACUITY: 2 days PAIN SCORE: 0/10 LOCATION: chest FINDINGS: AP and lateral views of the chest demonstrate a normal size cardiac silhouette. Left upper extremity PICC remains present. There is stable elevation of the right hemidiaphragm. No pleural effusion, airs pace consolidation, or pneumothorax is appreciated. Bones demonstrate no acute finding. CONCLUSION: No acute cardiopulmonary abnormality is appreciated. Shashi Lucas MD on September 01, 2016 at 8:45 Board Certified Radiologist. This report was verified electronically.
[2016-09-01] MEDS: POLYETHYLENE GLYCOL 17 GM PKG PO PRN (11:02)
[2016-09-01] MEDS: DULoxetine HCl DR 30 MG CAP PO SCH (11:03)
[2016-09-01] MEDS: ACETAMINOPHEN/HYDROcodone 325 MG/7.5 MG TAB PO PRN ×2 (11:05→21:01)
[2016-09-01 12:00] VITALS: BP 105/58; PULSE 89; RESP 17; TEMP 97.6; O2SAT 97
[2016-09-01] MEDS: ENOXAPARIN SODIUM 40 MG/0.4 ML SYRINGE SQ SCH (13:57)
[2016-09-01 16:00] VITALS: BP 107/63; PULSE 84; RESP 17; TEMP 96.4; O2SAT 96
[2016-09-01 20:00] VITALS: BP 103/56; PULSE 84; RESP 20; TEMP 99.3; O2SAT 96
[2016-09-01] MEDS: CLINIMIX E 5/25 2000 mL- >42 mls/hr IV-CENTRAL SCH ×3 (20:00)
[2016-09-01] MEDS: PRAMIPEXOLE DIHYDROCHLORIDE 0.25 MG TAB PO SCH (20:58)
[2016-09-01] MEDS: ZOLPIDEM TARTRATE 5 MG TAB PO PRN (23:02)
[2016-09-02] VITALS: BP 114/64; PULSE 86; RESP 20; TEMP 98.2; O2SAT 97
[2016-09-02] MEDS: OCTREOTIDE INJ 100 MCG/ML VIAL IV PUSH SCH ×3 (06:00→20:04)
[2016-09-02] MEDS: ACETAMINOPHEN/HYDROcodone 325 MG/7.5 MG TAB PO PRN ×3 (06:00→20:02)
[2016-09-02 06:23] LABS: HEMATOCRIT 30.8 % (35.0-46.0); MEAN CELL VOLUME 82.8 FL (80.0-100.0); MEAN CORPUSCULAR HGB CONC 32.6 % (32.0-36.0); PLATELET COUNT 329 TH/MM3 (150-450); RED BLOOD COUNT 3.72 MIL/MM3 (4.00-5.30); RED CELL DISTRIBUTION WIDTH 17.4 % (11.6-17.2); REVIEW FLAG FINAL; WHITE BLOOD COUNT 6.6 TH/MM3 (4.0-11.0)
[2016-09-02 06:54] LABS: ALT (GPT) 34 U/L (10-53); ANION GAP 9 MEQ/L (5-15); AST (GOT) 21 U/L (15-37); BICARBONATE 30.2 MEQ/L (21.0-32.0); BLOOD UREA NITROGEN 20 MG/DL (7-18); CHLORIDE 95 MEQ/L (98-107); GLOMERULAR FILTRATION RATE 126 ML/MIN (>89); POTASSIUM 4.4 MEQ/L (3.5-5.1); SODIUM (NA) 134 MEQ/L (136-145)
[2016-09-02 06:56] LABS: ALKALINE PHOSPHATASE 265 U/L (45-117); TOTAL BILIRUBIN ADULT 0.4 MG/DL (0.2-1.0)
[2016-09-02] MEDS: NYSTATIN 100,000 U/GM PWD 15 GM BTL TOPICAL SCH ×2 (07:05→20:03)
[2016-09-02 08:00] VITALS: BP 106/57; PULSE 90; RESP 17; TEMP 96.6; O2SAT 97
--- NOTE | 2016-09-02 08:03 | HHI.FPPN ---
Subjective Remarks Patient states she feels good this morning. Generally speaking, her rashes are improving. She is getting out of bed to chair. No fevers in 48 hours. No cough, chest pain, shortness of breath. Her wound feels better. (Ian Genao MD R2) Objective Vitals Vital Signs Date Time Temp Pulse Resp B/P Pulse Ox O2 Delivery O2 Flow Rate FiO2 09/02/16 00:00 98.2 86 20 114/64 97 09/01/16 20:00 99.3 84 20 103/56 96 09/01/16 16:00 96.4 84 17 107/63 96 09/01/16 12:00 97.6 89 17 105/58 97 I/O 09/01/16 09/01/16 09/01/16 09/02/16 09/02/16 09/02/16 07:00 15:00 23:00 07:00 15:00 23:00 Intake Total 940 ml 906 ml 1055 ml 0 ml Output Total 300 ml 1575 ml 850 ml 600 ml Balance 640 ml -669 ml 205 ml -600 ml Intake Oral 240 ml 240 ml 480 ml 0 ml IV Total 575 ml TPN/PPN 700 ml 666 ml Output Urine Total 300 ml 1050 ml 600 ml 600 ml Drainage Total 0 ml 525 ml 250 ml # Bowel Movements 0 (Ian Genao MD R2) Result Diagram: 09/02/16 0610 09/02/16 0610 Objective Remarks GENERAL: NAD, sitting in chair SKIN: Warm and dry. Patient with ostomy bag and wound VAC covering repaired fistula; placed to continuous wall suction. Mild erythema left lateral abdomen. Peripheral IV and PICC line in place in left arm. Patient with much improved erythematous rash within groin, left axilla. HEENT: Normocephalic. Atraumatic. EOMI. No scleral icterus. No injection or drainage. No nasal drainage. Moist mucous membranes. CARDIOVASCULAR: Regular rate and rhythm without murmurs, gallops, or rubs RESPIRATORY: Clear to auscultation bilaterally GASTROINTESTINAL: Abdomen obese. See skin above. + bowel sounds. MUSCULOSKELETAL: No pitting edema of bilateral lower extremities. No calf tenderness. NEURO: Awake and alert. 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 Discharge Planning Pending clinical improvement and clearance by general surgery. PT recommends physical therapy at rehabilitation. Patient currently with 2 wound vacs and TPN. Surgery thinks likely discharge next week. 3008 complete. (Ian Genao MD R2) Problem List: (1) Enterocutaneous fistula Status: Acute Plan: General Surgery Consulted, appreciate recommendations and interventions 07/28: Status post incision and drainage and washout of left abdominal wall, with wound vac placement due to small bowel fistula Wound VAC changes at bedside by wound care team. -Pain control with [place] 7.5325 Q4hrs prn pain 610, morphine 2 mg IV q3h prn breakthrough, hold if SBP < 110 or DBP < 60 -Dilaudid when necessary with wound changes -Octreotide 100 g IV every 8 hours -Repeat blood cultures secondary to fever show no growth in 2 day -Continue TPN with PICC line to reduce drainage and promote wound healing Imaging 07/28 - Abdomen/Pelvis CT: Diffuse and extensive subcutaneous emphysema around the abdominal wall from patient's right lateral abdominal wall across midline to left lateral abdominal wall. Fluid collection in anterior left abdominal wall suspicious for subcutaneous abscess. Nonspecific edema throughout subcutaneous tissues. No acute intra-abdominal or pelvic pathology. -Chest x-ray repeated on 09/01 - no acute cardiopulmonary abnormality appreciated Prior antibiotics: - Vancomycin, pharm consult (07/28-08/13) - Cefepime 2gm IV q8h (07/28-08/13) - Flagyl 500 mg IV q6h (07/28-08/13) (2) Skin rash Status: Resolved Plan: Rashes improving -fluconazole 200 mg by mouth daily, day 6 of 7 (discontinue on 09/03) Nystatin powder for groin, axilla, area under breasts, and skin folds Clotrimazole cream for back of neck (3) Physical deconditioning Status: Acute Plan: Patient physically deconditioned after staying in bed for extended period of time. Nursing order to get patient out of bed at least 3 times a day as tolerated with assistance -PT recommends PT at rehabilitation. Totally dependent. (4) Anemia Status: Acute Plan: -Currently stable. - Continue to monitor - Iron panel significant for anemia of chronic disease - B12 and Folate both elevated (5) Depression Status: Acute Plan: -Continue home Cymbalta 30 mg by mouth daily (6) Nutrition, metabolism, and development symptoms Status: Acute Plan: Fluids: Hep-Lock IV Electrolytes: Electrolytes within normal limits, continue to monitor and replete as necessary Nutrition: TPN and diet per surgery DVT PPX: SCDs and Lovenox; risk of DVT and PE greater than risk for chronic wound bleeding GI PPX: Pepcid (7) Lower extremity edema Status: Resolved Plan: Resolved Patient with no pitting edema of bilateral lower extremities on exam. - SCDs - 20 mg Lasix po daily, 25 meq potassium (8) Urinary tract infection Status: Resolved Plan: Urine culture Klebsiella: resolved Abx history: Rocephin 08/31-09/01 Ciprofloxacin 08/23-08/31 (Ian Genao MD R2) Problem Qualifiers (1) Anemia: Qualified Code: D64.9 - Anemia, unspecified type (2) Urinary tract infection: Qualified Code: N30.01 - Acute cystitis with hematuria Ian Genao MD R2 Sep 02, 2016 08:03 Cassy Oliver MD Sep 05, 2016 10:15
[2016-09-02] MEDS: LACTOBACILLUS ACIDOPHILUS TAB PO SCH ×3 (08:14→16:21)
[2016-09-02] MEDS: FLUCONAZOLE 200 MG TAB PO SCH (08:14)
[2016-09-02] MEDS: FUROSEMIDE 20 MG TAB PO SCH (08:14)
[2016-09-02] MEDS: DULoxetine HCl DR 30 MG CAP PO SCH (08:14)
[2016-09-02] MEDS: FAMOTIDINE 20 MG TAB PO SCH ×2 (08:14→20:03)
[2016-09-02] MEDS: CLOTRIMAZOLE 1% CREAM 15 GM TOPICAL SCH ×2 (08:18→20:04)
[2016-09-02] MEDS: POTASSIUM BICARBONATE 25 MEQ EFFERVESCENT TAB PO SCH (08:20)
[2016-09-02] MEDS: SODIUM CHLORIDE 0.9% FLUSH 5 ML FLUSH IVF SCH ×2 (08:20→20:03)
[2016-09-02 12:00] VITALS: BP 113/56; PULSE 89; RESP 17; TEMP 96.8; O2SAT 98
[2016-09-02] MEDS: ENOXAPARIN SODIUM 40 MG/0.4 ML SYRINGE SQ SCH (14:30)
[2016-09-02 16:00] VITALS: BP 109/64; PULSE 88; RESP 17; TEMP 97.3; O2SAT 98
[2016-09-02 20:00] VITALS: BP 120/54; PULSE 85; RESP 20; TEMP 98.5; O2SAT 97
[2016-09-02] MEDS: PRAMIPEXOLE DIHYDROCHLORIDE 0.25 MG TAB PO SCH (20:02)
[2016-09-02] MEDS: CLINIMIX E 5/25 2000 mL- >42 mls/hr IV-CENTRAL SCH ×3 (20:02)
[2016-09-02] MEDS: FAT EMULSION 20% INJ 250 ML (Twice weekly over 8 hours) IV-CENTRAL SCH (20:13)
[2016-09-02] MEDS: ZOLPIDEM TARTRATE 5 MG TAB PO PRN (22:20)
[2016-09-03 02:50] VITALS: BP 104/65; PULSE 86; RESP 18; TEMP 97.9; O2SAT 97
[2016-09-03] MEDS: ACETAMINOPHEN/HYDROcodone 325 MG/7.5 MG TAB PO PRN ×4 (04:20→22:01)
[2016-09-03] MEDS: OCTREOTIDE INJ 100 MCG/ML VIAL IV PUSH SCH ×3 (06:00→22:00)
[2016-09-03 08:00] VITALS: BP 111/56; PULSE 79; RESP 17; TEMP 96.3; O2SAT 98
[2016-09-03] MEDS: POTASSIUM BICARBONATE 25 MEQ EFFERVESCENT TAB PO SCH (09:00)
[2016-09-03] MEDS: NYSTATIN 100,000 U/GM PWD 15 GM BTL TOPICAL SCH ×2 (09:00→19:29)
[2016-09-03] MEDS: CLOTRIMAZOLE 1% CREAM 15 GM TOPICAL SCH ×2 (09:00→19:30)
[2016-09-03] MEDS: FLUCONAZOLE 200 MG TAB PO SCH (09:14)
[2016-09-03] MEDS: FUROSEMIDE 20 MG TAB PO SCH (09:14)
[2016-09-03] MEDS: EUCERIN CREAM 120 GM JAR TOPICAL PRN (09:14)
[2016-09-03] MEDS: DULoxetine HCl DR 30 MG CAP PO SCH (09:14)
[2016-09-03] MEDS: LACTOBACILLUS ACIDOPHILUS TAB PO SCH ×3 (09:14→18:00)
[2016-09-03] MEDS: FAMOTIDINE 20 MG TAB PO SCH ×2 (09:14→19:28)
[2016-09-03] MEDS: diphenhydrAMINE HCL 2%/ZINC ACETATE 0.1% CREAM 30 APPLIC/30 GM TUBE TOPICAL PRN (09:15)
[2016-09-03 10:19] LABS: HEMATOCRIT 36.4 % (35.0-46.0); MEAN CELL VOLUME 83.4 FL (80.0-100.0); MEAN CORPUSCULAR HEMOGLOBIN 27.3 PG (27.0-34.0); MEAN CORPUSCULAR HGB CONC 32.7 % (32.0-36.0); PLATELET COUNT 416 TH/MM3 (150-450); RED BLOOD COUNT 4.37 MIL/MM3 (4.00-5.30); RED CELL DISTRIBUTION WIDTH 16.9 % (11.6-17.2); REVIEW FLAG FINAL; WHITE BLOOD COUNT 7.3 TH/MM3 (4.0-11.0)
[2016-09-03 10:37] LABS: ALKALINE PHOSPHATASE 361 U/L (45-117); ALT (GPT) 42 U/L (10-53); ANION GAP 12 MEQ/L (5-15); AST (GOT) 27 U/L (15-37); BICARBONATE 24.4 MEQ/L (21.0-32.0); BLOOD UREA NITROGEN 18 MG/DL (7-18); CHLORIDE 95 MEQ/L (98-107); GLOMERULAR FILTRATION RATE 75 ML/MIN (>89); POTASSIUM 4.5 MEQ/L (3.5-5.1); SODIUM (NA) 131 MEQ/L (136-145); TOTAL BILIRUBIN ADULT 0.5 MG/DL (0.2-1.0)
[2016-09-03 12:00] VITALS: BP 110/61; PULSE 86; RESP 18; TEMP 96.2; O2SAT 98
--- NOTE | 2016-09-03 14:07 | HHI.FPPN ---
Subjective Remarks No acute events overnight. Afebrile, vital signs stable. Patient with no complaints this morning. (Ginette Herbert MD R3) Objective Vitals Vital Signs Date Time Temp Pulse Resp B/P Pulse Ox O2 Delivery O2 Flow Rate FiO2 09/03/16 12:00 96.2 86 18 110/61 98 09/03/16 08:00 96.3 79 17 111/56 98 09/03/16 02:50 97.9 86 18 104/65 97 09/02/16 20:00 98.5 85 20 120/54 97 09/02/16 16:00 97.3 88 17 109/64 98 I/O 09/02/16 09/02/16 09/02/16 09/03/16 09/03/16 09/03/16 07:00 15:00 23:00 07:00 15:00 23:00 Intake Total 0 ml 1340 ml 1095 ml 1123 ml Output Total 600 ml 750 ml 1200 ml 800 ml Balance -600 ml 590 ml -105 ml 323 ml Intake Oral 0 ml 120 ml 480 ml 240 ml TPN/PPN 1220 ml 615 ml 633 ml Lipid 250 ml Output Urine Total 600 ml 500 ml 1000 ml 600 ml Drainage Total 250 ml 200 ml 200 ml # Bowel Movements 0 (Ginette Herbert MD R3) Result Diagram: 09/03/16 1000 09/03/16 1000 Objective Remarks GENERAL: NAD SKIN: Warm and dry. Patient with ostomy bag and wound VAC covering repaired fistula. Mild erythema left lateral abdomen. Peripheral IV and PICC line in place in left arm. HEENT: Normocephalic. Atraumatic. EOMI. No scleral icterus. No injection or drainage. No nasal drainage. Moist mucous membranes. CARDIOVASCULAR: Regular rate and rhythm without murmurs, gallops, or rubs RESPIRATORY: Clear to auscultation bilaterally GASTROINTESTINAL: Abdomen obese. See skin above. Hypoactive bowel sounds. MUSCULOSKELETAL: No pitting edema of bilateral lower extremities. No calf tenderness. NEURO: Awake and alert. 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 WEAVER TIRE CORD grossly intact. 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 Discharge Planning Pending clinical improvement and clearance by general surgery. PT recommends physical therapy at rehabilitation. Patient currently with 2 wound vacs and TPN. Surgery thinks likely discharge next week. 3008 complete. (Ginette Herbert MD R3) Attending Attestation Patient seen and examined with the resident team. Case reviewed and discussed Agree with plan of care as discussed with me and documented in the resident note. (Cassy Oliver MD) Problem List: (1) Enterocutaneous fistula Status: Acute Plan: General Surgery Consulted, appreciate recommendations and interventions 07/28: Status post incision and drainage and washout of left abdominal wall, with wound vac placement due to small bowel fistula Wound VAC changes at bedside by wound care team. -Pain control with [place] 7.5325 Q4hrs prn pain 610, morphine 2 mg IV q3h prn breakthrough, hold if SBP < 110 or DBP < 60 -Dilaudid when necessary with wound changes -Octreotide 100 g IV every 8 hours -Repeat blood cultures secondary to fever show no growth in 3 days -Continue TPN with PICC line to reduce drainage and promote wound healing Imaging 07/28 - Abdomen/Pelvis CT: Diffuse and extensive subcutaneous emphysema around the abdominal wall from patient's right lateral abdominal wall across midline to left lateral abdominal wall. Fluid collection in anterior left abdominal wall suspicious for subcutaneous abscess. Nonspecific edema throughout subcutaneous tissues. No acute intra-abdominal or pelvic pathology. -Chest x-ray repeated on 09/01 - no acute cardiopulmonary abnormality appreciated Prior antibiotics: - Vancomycin, pharm consult (07/28-08/13) - Cefepime 2gm IV q8h (07/28-08/13) - Flagyl 500 mg IV q6h (07/28-08/13) (2) Skin rash Status: Resolved Plan: Rash improved - Completed 7 day course of fluconazole on 09/03 Nystatin powder for groin, axilla, area under breasts, and skin folds Clotrimazole cream for back of neck (3) Physical deconditioning Status: Acute Plan: Patient physically deconditioned after staying in bed for extended period of time. Nursing order to get patient out of bed at least 3 times a day as tolerated with assistance -PT recommends PT at rehabilitation. (4) Anemia Status: Acute Plan: -Currently stable. - Continue to monitor - Iron panel significant for anemia of chronic disease - B12 and Folate both elevated (5) Depression Status: Acute Plan: -Continue home Cymbalta 30 mg by mouth daily (6) Nutrition, metabolism, and development symptoms Status: Acute Plan: Fluids: Hep-Lock IV Electrolytes: Electrolytes within normal limits, continue to monitor and replete as necessary Nutrition: TPN and diet per surgery DVT PPX: SCDs and Lovenox; risk of DVT and PE greater than risk for chronic wound bleeding GI PPX: Pepcid (7) Lower extremity edema Status: Resolved Plan: Resolved Patient with no pitting edema of bilateral lower extremities on exam. - SCDs - 20 mg Lasix po daily, 25 meq potassium (8) Urinary tract infection Status: Resolved Plan: Urine culture Klebsiella: resolved Abx history: Rocephin 08/31-09/01 Ciprofloxacin 08/23-08/31 (Ginette Herbert MD R3) Problem Qualifiers (1) Anemia: Qualified Code: D64.9 - Anemia, unspecified type (2) Urinary tract infection: Qualified Code: N30.01 - Acute cystitis with hematuria Ginette Herbert MD R3 Sep 03, 2016 14:07 Cassy Oliver MD Sep 03, 2016 16:38
[2016-09-03] MEDS: ALTEPLASE RECOMBINANT 2 MG VIAL INTRACATH PRN (14:23)
[2016-09-03] MEDS: ONDANSETRON HCL 4 MG/2 ML VIAL IV PUSH PRN (14:23)
[2016-09-03] MEDS: ENOXAPARIN SODIUM 40 MG/0.4 ML SYRINGE SQ SCH (14:23)
[2016-09-03 16:00] VITALS: BP 96/54; PULSE 93; RESP 14; TEMP 96.7; O2SAT 96
[2016-09-03] MEDS: SODIUM CHLORIDE 0.9% FLUSH 5 ML FLUSH IVF SCH (19:27)
[2016-09-03] MEDS: PRAMIPEXOLE DIHYDROCHLORIDE 0.25 MG TAB PO SCH (19:30)
[2016-09-03] MEDS: CLINIMIX E 5/25 2000 mL- >42 mls/hr IV-CENTRAL SCH ×3 (19:38)
[2016-09-03 20:00] VITALS: BP 112/55; PULSE 93; RESP 19; TEMP 96.2; O2SAT 94
[2016-09-03] MEDS: POLYETHYLENE GLYCOL 17 GM PKG PO PRN (21:16)
[2016-09-03] MEDS: ZOLPIDEM TARTRATE 5 MG TAB PO PRN (22:44)
[2016-09-04] VITALS: BP 109/58; PULSE 78; RESP 20; TEMP 96.5; O2SAT 93
[2016-09-04] MEDS: ACETAMINOPHEN/HYDROcodone 325 MG/7.5 MG TAB PO PRN ×3 (02:39→20:27)
[2016-09-04] MEDS: OCTREOTIDE INJ 100 MCG/ML VIAL IV PUSH SCH ×3 (02:39→20:25)
[2016-09-04 08:00] VITALS: BP 123/56; PULSE 89; RESP 19; TEMP 98.2; O2SAT 96
[2016-09-04] MEDS: LACTOBACILLUS ACIDOPHILUS TAB PO SCH ×3 (08:29→17:26)
[2016-09-04] MEDS: FUROSEMIDE 20 MG TAB PO SCH (08:29)
[2016-09-04] MEDS: FAMOTIDINE 20 MG TAB PO SCH ×2 (08:29→20:24)
[2016-09-04] MEDS: DULoxetine HCl DR 30 MG CAP PO SCH (08:29)
[2016-09-04] MEDS: SODIUM CHLORIDE 0.9% FLUSH 5 ML FLUSH IVF SCH ×2 (08:30→20:24)
[2016-09-04] MEDS: POTASSIUM BICARBONATE 25 MEQ EFFERVESCENT TAB PO SCH (08:30)
[2016-09-04] MEDS: CLOTRIMAZOLE 1% CREAM 15 GM TOPICAL SCH ×2 (08:30→21:00)
[2016-09-04] MEDS: NYSTATIN 100,000 U/GM PWD 15 GM BTL TOPICAL SCH ×2 (08:31→21:00)
--- NOTE | 2016-09-04 09:00 | HHI.FPPN ---
Subjective Remarks Patient is doing well this morning. She has no new complaints. She states her wound is looking/healing better. Her rashes are improving with the possible exception of the one on her lower right back. Her pain is better. She is getting out of bed with physical therapy and to chair frequently throughout the day. No fevers or chills. She is using her incentive spirometer. No Chest pain, vomiting. She is not having a bowel movement despite MiraLAX. (Ian Genao MD R2) Objective Vitals Vital Signs Date Time Temp Pulse Resp B/P Pulse Ox O2 Delivery O2 Flow Rate FiO2 09/04/16 00:00 96.5 78 20 109/58 93 09/03/16 20:00 96.2 93 19 112/55 94 09/03/16 16:00 96.7 93 14 96/54 96 09/03/16 12:00 96.2 86 18 110/61 98 I/O 09/03/16 09/03/16 09/03/16 09/04/16 09/04/16 09/04/16 07:00 15:00 23:00 07:00 15:00 23:00 Intake Total 1123 ml 500 ml 911 ml 989 ml Output Total 800 ml 600 ml 1400 ml Balance 323 ml 500 ml 311 ml -411 ml Intake Oral 240 ml 500 ml 120 ml 240 ml TPN/PPN 633 ml 791 ml 749 ml Lipid 250 ml Output Urine Total 600 ml 600 ml 700 ml Stool Total 0 ml 0 ml Drainage Total 200 ml 0 ml 700 ml # Voids 5 # Bowel Movements 0 0 (Ian Genao MD R2) Result Diagram: 09/03/16 1000 09/03/16 1000 Objective Remarks GENERAL: NAD SKIN: Warm and dry. Patient with ostomy bag and wound VAC covering repaired fistula. Mild erythema left lateral abdomen. Peripheral IV and PICC line in place in left arm. HEENT: Normocephalic. Atraumatic. EOMI. No scleral icterus. No injection or drainage. No nasal drainage. Moist mucous membranes. CARDIOVASCULAR: Regular rate and rhythm without murmurs, gallops, or rubs RESPIRATORY: Clear to auscultation bilaterally GASTROINTESTINAL: Abdomen obese. See skin above. Hypoactive bowel sounds. MUSCULOSKELETAL: No pitting edema of bilateral lower extremities. No calf tenderness. NEURO: Awake and alert. 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 Discharge Planning Pending clinical improvement and clearance by general surgery. PT recommends physical therapy at rehabilitation. Patient currently with 2 wound vacs and TPN. Surgery thinks likely discharge next week. 3008 complete. (Ian Genao MD R2) Attending Attestation Patient seen and examined. Case reviewed and discussed Agree with plan of care as discussed with me and documented in the resident note. (Cassy Oliver MD) Problem List: (1) Enterocutaneous fistula Status: Acute Plan: General Surgery Consulted, appreciate recommendations and interventions 07/28: Status post incision and drainage and washout of left abdominal wall, with wound vac placement due to small bowel fistula Wound VAC changes at bedside by wound care team. -Pain control with [place] 7.5325 Q4hrs prn pain 610, morphine 2 mg IV q3h prn breakthrough, hold if SBP < 110 or DBP < 60 -Dilaudid when necessary with wound changes -Octreotide 100 g IV every 8 hours -Repeat blood cultures secondary to fever show no growth -Continue TPN with PICC line to reduce drainage and promote wound healing Imaging 07/28 - Abdomen/Pelvis CT: Diffuse and extensive subcutaneous emphysema around the abdominal wall from patient's right lateral abdominal wall across midline to left lateral abdominal wall. Fluid collection in anterior left abdominal wall suspicious for subcutaneous abscess. Nonspecific edema throughout subcutaneous tissues. No acute intra-abdominal or pelvic pathology. -Chest x-ray repeated on 09/01 - no acute cardiopulmonary abnormality appreciated Prior antibiotics: - Vancomycin, pharm consult (07/28-08/13) - Cefepime 2gm IV q8h (07/28-08/13) - Flagyl 500 mg IV q6h (07/28-08/13) (2) Skin rash Status: Resolved Plan: Rash improved - Completed 7 day course of fluconazole on 09/03 Nystatin powder for groin, axilla, area under breasts, and skin folds Clotrimazole cream for back of neck (3) Physical deconditioning Status: Acute Plan: Patient physically deconditioned after staying in bed for extended period of time. Nursing order to get patient out of bed at least 3 times a day as tolerated with assistance -PT recommends PT at rehabilitation. (4) Anemia Status: Acute Plan: -Currently stable. - Continue to monitor - Iron panel significant for anemia of chronic disease - B12 and Folate both elevated (5) Depression Status: Acute Plan: -Continue home Cymbalta 30 mg by mouth daily (6) Nutrition, metabolism, and development symptoms Status: Acute Plan: Fluids: Hep-Lock IV Electrolytes: Electrolytes within normal limits, continue to monitor and replete as necessary Nutrition: TPN and diet per surgery DVT PPX: SCDs and Lovenox; risk of DVT and PE greater than risk for chronic wound bleeding GI PPX: Pepcid (7) Lower extremity edema Status: Resolved Plan: Resolved Patient with no pitting edema of bilateral lower extremities on exam. - SCDs - 20 mg Lasix po daily, 25 meq potassium (8) Urinary tract infection Status: Resolved Plan: Urine culture Klebsiella: resolved Abx history: Rocephin 08/31-09/01 Ciprofloxacin 08/23-08/31 (Ian Genao MD R2) Problem Qualifiers (1) Anemia: Qualified Code: D64.9 - Anemia, unspecified type (2) Urinary tract infection: Qualified Code: N30.01 - Acute cystitis with hematuria Ian Genao MD R2 Sep 04, 2016 09:00 Cassy Oliver MD Sep 05, 2016 10:16
[2016-09-04 12:00] VITALS: BP 128/60; PULSE 102; RESP 18; TEMP 96.7; O2SAT 99
--- NOTE | 2016-09-04 12:10 | HHI.PR ---
Subjective Subjective Notes DAILY PROGRESS NOTE FOR SURGICAL ATTENDING, DR. LANDRY VELEZ Resting in bed Doing well; no complaints Objective Vitals/I&O Vital Signs Date Time Temp Pulse Resp B/P Pulse Ox O2 Delivery O2 Flow Rate FiO2 09/04/16 08:00 98.2 89 19 123/56 96 Labs Date/Time Procedure Status Source Growth 08/31/16 15:54 Aerobic Blood Culture - Preliminary Resulted Blood Peripheral NO GROWTH IN 4 DAYS 08/31/16 15:54 Anaerobic Blood Culture - Preliminary Resulted Blood Peripheral NO GROWTH IN 4 DAYS 08/30/16 13:02 Urine Culture - Final Complete Urine Catheterized Urine 10-50,000 CFU/ML MIXED GRAM POSITIVE ... 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 LANDRY VELEZ I agree with above assessment and plan. The exam, history, and the medical decision-making described in the above note were completed with the assistance of the mid-level provider. I reviewed and agree with the findings presented. I attest that I had a [id number] encounter with the patient on the same day, and personally performed and documented my assessment and findings in the medical record. The following services were provided during this hospital visit: Chart data review, vital sign assessments/reviewing monitor data Review of consultations notes if present. Medication orders/review and/or management Ordering and/or reviewing lab tests Ordering and/or interpreting/reviewing x-rays and/or diagnostic studies Care of the patient and discussion of the patient with the care team Documentation time To help prompt me to consider important information that might be impacting today's encounter and assessment, information from prior notes written by myself or my colleagues may have been "brought forward/copy and pasted" into today's note. Problem Qualifiers (1) Subcutaneous abscess: Arabella Pickering Sep 04, 2016 12:10 Landry Velez MD Sep 16, 2016 10:02
[2016-09-04] MEDS: ENOXAPARIN SODIUM 40 MG/0.4 ML SYRINGE SQ SCH (13:45)
[2016-09-04 16:00] VITALS: BP 124/57; PULSE 102; RESP 18; TEMP 99.1; O2SAT 95
[2016-09-04] MEDS: POLYETHYLENE GLYCOL 17 GM PKG PO PRN (18:47)
[2016-09-04 20:00] VITALS: BP 104/62; PULSE 101; RESP 18; TEMP 98; O2SAT 97
[2016-09-04] MEDS: CLINIMIX E 5/25 2000 mL- >42 mls/hr IV-CENTRAL SCH ×3 (20:24)
[2016-09-04] MEDS: PRAMIPEXOLE DIHYDROCHLORIDE 0.25 MG TAB PO SCH (20:24)
[2016-09-05] VITALS: BP 120/63; PULSE 91; RESP 18; TEMP 98.9; O2SAT 95
[2016-09-05] MEDS: OCTREOTIDE INJ 100 MCG/ML VIAL IV PUSH SCH ×4 (02:20→21:09)
[2016-09-05] MEDS: ACETAMINOPHEN/HYDROcodone 325 MG/7.5 MG TAB PO PRN (02:57)
[2016-09-05] MEDS: ONDANSETRON HCL 4 MG/2 ML VIAL IV PUSH PRN ×4 (02:58→23:54)
[2016-09-05 06:47] LABS: ANION GAP 9 MEQ/L (5-15); AST (GOT) 23 U/L (15-37); BICARBONATE 28.6 MEQ/L (21.0-32.0); BLOOD UREA NITROGEN 23 MG/DL (7-18); CHLORIDE 94 MEQ/L (98-107); GLOMERULAR FILTRATION RATE 84 ML/MIN (>89); POTASSIUM 4.9 MEQ/L (3.5-5.1); SODIUM (NA) 132 MEQ/L (136-145)
[2016-09-05 06:50] LABS: ALKALINE PHOSPHATASE 344 U/L (45-117); ALT (GPT) 39 U/L (10-53); TOTAL BILIRUBIN ADULT 0.7 MG/DL (0.2-1.0)
[2016-09-05 08:00] VITALS: BP 112/67; PULSE 106; RESP 16; TEMP 100.2; O2SAT 92
[2016-09-05 08:30] VITALS: BP 99/63; PULSE 96; RESP 17; TEMP 98; O2SAT 94
[2016-09-05] MEDS: SODIUM CHLORIDE 0.9% FLUSH 5 ML FLUSH IVF SCH ×2 (09:00→21:02)
--- NOTE | 2016-09-05 09:40 | HHI.FPPN ---
Subjective Remarks Ms Menard had a good night and got at least 8 hrs of sleep. She had one episode of nausea and vomiting yesterday and states that her mouth now feels sour. She has not yet had a bowel movement for multiple days and she feels uncomfortable. She is not willing to try anything but Miralax yet because she is afraid of affecting her abdominal wound. She would like to try Miralax today and then see how she feels during the day. She knows to inform her nurse if abdomen becomes too uncomfortable. She only complaints of rash in her right back. (Estefani Willett MD R1) Objective Vitals Vital Signs Date Time Temp Pulse Resp B/P Pulse Ox O2 Delivery O2 Flow Rate FiO2 09/05/16 08:30 98.0 96 17 99/63 94 09/05/16 00:00 98.9 91 18 120/63 95 09/04/16 20:00 98.0 101 18 104/62 97 09/04/16 16:44 17 09/04/16 16:00 99.1 102 18 124/57 95 09/04/16 12:00 96.7 102 18 128/60 99 I/O 09/04/16 09/04/16 09/04/16 09/05/16 09/05/16 09/05/16 07:00 15:00 23:00 07:00 15:00 23:00 Intake Total 989 ml 1494 ml 1078 ml 807 ml Output Total 1400 ml 550 ml 300 ml 200 ml Balance -411 ml 944 ml 778 ml 607 ml Intake Oral 240 ml 795 ml 420 ml 120 ml IV Total 0 ml 658 ml TPN/PPN 749 ml 699 ml 687 ml Output Urine Total 700 ml Stool Total 0 ml Drainage Total 700 ml 550 ml 300 ml 200 ml # Voids 6 3 2 # Bowel Movements 0 0 0 (Etsefani Willett MD R1) Result Diagram: 09/03/16 1000 09/05/16 0610 Objective Remarks GENERAL: NAD SKIN: Warm and dry. Patient with ostomy bag and wound VAC covering repaired fistula. Faint erythema left lateral abdomen. Peripheral IV and PICC line in place in left arm. HEENT: Normocephalic. Atraumatic. EOMI. No scleral icterus. No injection or drainage. No nasal drainage. Moist mucous membranes. CARDIOVASCULAR: Regular rate and rhythm without murmurs, gallops, or rubs RESPIRATORY: Clear to auscultation bilaterally GASTROINTESTINAL: Abdomen obese. See skin above. Bowel sounds present. MUSCULOSKELETAL: Mild edema of bilateral lower extremities. No calf tenderness. NEURO: Awake and alert. 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 PRESS ASSISTANT grossly intact. 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 Discharge Planning Pending clinical improvement and clearance by general surgery. PT recommends physical therapy at rehabilitation. Patient currently with 2 wound vacs and TPN. Surgery thinks likely discharge this week, hopefully by Saturday. 3008 complete. (Estefani Willett MD R1) Attending Attestation Patient seen and examined. Case reviewed and discussed Agree with plan of care as discussed with me and documented in the resident note. (Cassy Oliver MD) Problem List: (1) Enterocutaneous fistula Status: Acute Plan: General Surgery consulted, appreciate recommendations and interventions 07/28: Status post incision and drainage and washout of left abdominal wall, with wound vac placement due to small bowel fistula Wound VAC changes at bedside by wound care team -Pain control with [place] 7.5325 Q4hrs prn pain 610, morphine 2 mg IV q3h prn breakthrough, hold if SBP < 110 or DBP < 60 -Dilaudid when necessary with wound changes -Octreotide 100 g IV every 8 hours -Repeat blood cultures secondary to fever show no growth -Continue TPN with PICC line to reduce drainage and promote wound healing Imaging 07/28 - Abdomen/Pelvis CT: Diffuse and extensive subcutaneous emphysema around the abdominal wall from patient's right lateral abdominal wall across midline to left lateral abdominal wall. Fluid collection in anterior left abdominal wall suspicious for subcutaneous abscess. Nonspecific edema throughout subcutaneous tissues. No acute intra-abdominal or pelvic pathology. -Chest x-ray repeated on 09/01 - no acute cardiopulmonary abnormality appreciated Prior antibiotics: - Vancomycin, pharm consult (07/28-08/13) - Cefepime 2gm IV q8h (07/28-08/13) - Flagyl 500 mg IV q6h (07/28-08/13) (2) Skin rash Status: Resolved Plan: Rash improved - Completed 7 day course of fluconazole on 09/03 Nystatin powder for groin, axilla, area under breasts, and skin folds Clotrimazole cream for back of neck (3) Physical deconditioning Status: Acute Plan: Patient physically deconditioned after staying in bed for extended period of time. Nursing order to get patient out of bed at least 3 times a day as tolerated with assistance -PT recommends PT at rehabilitation. (4) Anemia Status: Acute Plan: -Currently stable - Continue to monitor - Iron panel significant for anemia of chronic disease - B12 and Folate both elevated (5) Depression Status: Acute Plan: -Continue home Cymbalta 30 mg by mouth daily (6) Nutrition, metabolism, and development symptoms Status: Acute Plan: Fluids: Hep-Lock IV Electrolytes: Electrolytes within normal limits, continue to monitor and replete as necessary Nutrition: TPN and diet per surgery DVT PPX: SCDs and Lovenox; risk of DVT and PE greater than risk for chronic wound bleeding GI PPX: Pepcid (7) Lower extremity edema Status: Resolved Plan: Resolved Patient with no pitting edema of bilateral lower extremities on exam. - SCDs - 20 mg Lasix po daily, 25 meq potassium (8) Urinary tract infection Status: Resolved Plan: Urine culture Klebsiella: resolved Abx history: Rocephin 08/31-09/01 Ciprofloxacin 08/23-08/31 (Estefani Willett MD R1) Problem Qualifiers (1) Anemia: Qualified Code: D64.9 - Anemia, unspecified type (2) Urinary tract infection: Qualified Code: N30.01 - Acute cystitis with hematuria Estefani Willett MD R1 Sep 05, 2016 09:40 Cassy Oliver MD Sep 05, 2016 10:15
[2016-09-05] MEDS: NYSTATIN 100,000 U/GM PWD 15 GM BTL TOPICAL SCH ×2 (09:59→21:05)
[2016-09-05] MEDS: CLOTRIMAZOLE 1% CREAM 15 GM TOPICAL SCH ×2 (09:59→21:05)
[2016-09-05] MEDS: FAMOTIDINE 20 MG TAB PO SCH ×2 (10:00→21:03)
[2016-09-05] MEDS: FUROSEMIDE 20 MG TAB PO SCH (10:00)
[2016-09-05] MEDS: DULoxetine HCl DR 30 MG CAP PO SCH (10:00)
[2016-09-05] MEDS: LACTOBACILLUS ACIDOPHILUS TAB PO SCH ×3 (10:05→17:32)
[2016-09-05] MEDS: POTASSIUM BICARBONATE 25 MEQ EFFERVESCENT TAB PO SCH (10:05)
[2016-09-05 11:45] VITALS: BP 113/57; PULSE 101; RESP 19; TEMP 99.7; O2SAT 95
[2016-09-05] MEDS: MAGNESIUM HYDROXIDE SUSP 30 ML CUP PO SCH (17:24)
[2016-09-05] MEDS: ENOXAPARIN SODIUM 40 MG/0.4 ML SYRINGE SQ SCH (17:24)
[2016-09-05] MEDS: ACETAMINOPHEN 1000 MG/100 ML VIAL IV SCH ×2 (18:12→23:55)
[2016-09-05 20:00] VITALS: BP 107/54; PULSE 97; RESP 18; TEMP 97.8; O2SAT 95
[2016-09-05] MEDS: PRAMIPEXOLE DIHYDROCHLORIDE 0.25 MG TAB PO SCH (21:03)
[2016-09-05] MEDS: CLINIMIX E 5/25 2000 mL- >42 mls/hr IV-CENTRAL SCH ×3 (21:04)
[2016-09-05] MEDS: FAT EMULSION 20% INJ 250 ML (Twice weekly over 8 hours) IV-CENTRAL SCH (21:04)
[2016-09-06] VITALS: BP 117/56; PULSE 98; RESP 20; TEMP 98.3; O2SAT 97
[2016-09-06] MEDS: ACETAMINOPHEN 1000 MG/100 ML VIAL IV SCH ×4 (04:53→20:54)
[2016-09-06] MEDS: OCTREOTIDE INJ 100 MCG/ML VIAL IV PUSH SCH (04:53)
[2016-09-06 05:26] LABS: HEMATOCRIT 34.9 % (35.0-46.0); MEAN CELL VOLUME 83.2 FL (80.0-100.0); MEAN CORPUSCULAR HEMOGLOBIN 27.3 PG (27.0-34.0); MEAN CORPUSCULAR HGB CONC 32.9 % (32.0-36.0); PLATELET COUNT 472 TH/MM3 (150-450); RED CELL DISTRIBUTION WIDTH 17.2 % (11.6-17.2); REVIEW FLAG FINAL; WHITE BLOOD COUNT 9.2 TH/MM3 (4.0-11.0)
[2016-09-06 05:54] LABS: ALT (GPT) 43 U/L (10-53); ANION GAP 9 MEQ/L (5-15); AST (GOT) 43 U/L (15-37); BICARBONATE 27.7 MEQ/L (21.0-32.0); BLOOD UREA NITROGEN 24 MG/DL (7-18); CHLORIDE 93 MEQ/L (98-107); GLOMERULAR FILTRATION RATE 91 ML/MIN (>89); POTASSIUM 4.5 MEQ/L (3.5-5.1); SODIUM (NA) 130 MEQ/L (136-145)
[2016-09-06 05:56] LABS: ALKALINE PHOSPHATASE 366 U/L (45-117); TOTAL BILIRUBIN ADULT 0.6 MG/DL (0.2-1.0)
[2016-09-06 08:00] VITALS: BP 112/54; PULSE 87; RESP 20; TEMP 98.1; O2SAT 97
[2016-09-06] MEDS: FUROSEMIDE 20 MG TAB PO SCH (08:47)
[2016-09-06] MEDS: LACTOBACILLUS ACIDOPHILUS TAB PO SCH ×3 (08:47→16:59)
[2016-09-06] MEDS: FAMOTIDINE 20 MG TAB PO SCH ×2 (08:47→20:54)
[2016-09-06] MEDS: MAGNESIUM HYDROXIDE SUSP 30 ML CUP PO SCH (08:47)
[2016-09-06] MEDS: DULoxetine HCl DR 30 MG CAP PO SCH (08:48)
[2016-09-06] MEDS: POTASSIUM BICARBONATE 25 MEQ EFFERVESCENT TAB PO SCH (08:48)
[2016-09-06] MEDS: DOCUSATE SODIUM 50 MG/SENNA 8.6 MG TAB PO SCH (08:48)
[2016-09-06] MEDS: NYSTATIN 100,000 U/GM PWD 15 GM BTL TOPICAL SCH ×2 (08:48→20:55)
[2016-09-06] MEDS: CLOTRIMAZOLE 1% CREAM 15 GM TOPICAL SCH ×2 (08:49→20:54)
[2016-09-06] MEDS: SODIUM CHLORIDE 0.9% FLUSH 5 ML FLUSH IVF SCH ×2 (08:50→20:54)
--- NOTE | 2016-09-06 10:03 | HHI.FPPN ---
Subjective Remarks Patient states she is doing a lot better than yesterday. She is no longer having nausea. She has not had a bowel movement despite MiraLAX. Over the last 36 hours she has felt feverish at times with sweating episodes. Currently she does not feel febrile. She did not get out of bed yesterday. She believes the rash in the back of her neck is worsening as well as under her left breast. Overall today, she is feeling well. She plans to get out of bed today. She currently is not feeling fevers, chills, chest pain, nausea, vomiting, shortness of breath. (Ian Genao MD R2) Objective Vitals Vital Signs Date Time Temp Pulse Resp B/P Pulse Ox O2 Delivery O2 Flow Rate FiO2 09/06/16 08:00 98.1 87 20 112/54 97 09/06/16 00:00 98.3 98 20 117/56 97 09/05/16 20:00 97.8 97 18 107/54 95 09/05/16 11:45 99.7 101 19 113/57 95 I/O 09/05/16 09/05/16 09/05/16 09/06/16 09/06/16 09/06/16 07:00 15:00 23:00 07:00 15:00 23:00 Intake Total 807 ml 480 ml 2038 ml 1240 ml 120 ml Output Total 200 ml 1335 ml 850 ml Balance 607 ml 480 ml 703 ml 390 ml 120 ml Intake Oral 120 ml 480 ml 620 ml 240 ml 120 ml IV Total 200 ml TPN/PPN 687 ml 1388 ml 610 ml Lipid 30 ml 190 ml Output Urine Total 600 ml 600 ml Drainage Total 200 ml 735 ml 250 ml # Voids 2 4 3 # Bowel Movements 0 0 0 0 (Ian Genao MD R2) Result Diagram: 09/06/16 0500 09/06/16 0500 Objective Remarks GENERAL: NAD SKIN: Warm and dry. Patient with ostomy bag and wound VAC covering repaired fistula. Faint erythema left lateral abdomen. Peripheral IV and PICC line in place in left arm. HEENT: Normocephalic. Atraumatic. EOMI. No scleral icterus. No injection or drainage. No nasal drainage. Moist mucous membranes. CARDIOVASCULAR: Regular rate and rhythm without murmurs, gallops, or rubs RESPIRATORY: Clear to auscultation bilaterally GASTROINTESTINAL: Abdomen obese. See skin above. Bowel sounds present. MUSCULOSKELETAL: Mild edema of bilateral lower extremities. No calf tenderness. NEURO: Awake and alert. 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 Discharge Planning Pending clinical improvement and clearance by general surgery. PT recommends physical therapy at rehabilitation. Patient currently with 2 wound vacs and TPN. Surgery thinks likely discharge this week, hopefully by Saturday. 3008 complete. (Ian Genao MD R2) Attending Attestation Patient seen and examined Case reviewed and discussed Agree with plan of care as discussed with me and documented in the resident note. (Cassy Oliver MD) Problem List: (1) Enterocutaneous fistula Status: Acute Plan: General Surgery consulted, appreciate recommendations and interventions 07/28: Status post incision and drainage and washout of left abdominal wall, with wound vac placement due to small bowel fistula Wound VAC changes at bedside by wound care team -Pain control with [place] 7.5325 Q4hrs prn pain 610, morphine 2 mg IV q3h prn breakthrough, hold if SBP < 110 or DBP < 60 -Dilaudid when necessary with wound changes -Octreotide 100 g IV every 8 hours (09/06: currently holding as the patient has been declining treatment secondary to constipation) -Repeat blood cultures secondary to fever show no growth -Continue TPN with PICC line to reduce drainage and promote wound healing Imaging 07/28 - Abdomen/Pelvis CT: Diffuse and extensive subcutaneous emphysema around the abdominal wall from patient's right lateral abdominal wall across midline to left lateral abdominal wall. Fluid collection in anterior left abdominal wall suspicious for subcutaneous abscess. Nonspecific edema throughout subcutaneous tissues. No acute intra-abdominal or pelvic pathology. -Chest x-ray repeated on 09/01 - no acute cardiopulmonary abnormality appreciated Prior antibiotics: - Vancomycin, pharm consult (07/28-08/13) - Cefepime 2gm IV q8h (07/28-08/13) - Flagyl 500 mg IV q6h (07/28-08/13) (2) Skin rash Status: Resolved Plan: Rash improved - Completed 7 day course of fluconazole on 09/03 Nystatin powder for groin, axilla, area under breasts, and skin folds Clotrimazole cream for back of neck (3) Physical deconditioning Status: Acute Plan: Patient physically deconditioned after staying in bed for extended period of time. Nursing order to get patient out of bed at least 3 times a day as tolerated with assistance -PT recommends PT at rehabilitation. (4) Anemia Status: Acute Plan: -Currently stable - Continue to monitor - Iron panel significant for anemia of chronic disease - B12 and Folate both elevated (5) Depression Status: Acute Plan: -Continue home Cymbalta 30 mg by mouth daily (6) Nutrition, metabolism, and development symptoms Status: Acute Plan: Fluids: Hep-Lock IV Electrolytes: Electrolytes within normal limits, continue to monitor and replete as necessary Nutrition: TPN and diet per surgery DVT PPX: SCDs and Lovenox; risk of DVT and PE greater than risk for chronic wound bleeding GI PPX: Pepcid (7) Lower extremity edema Status: Resolved Plan: Resolved Patient with no pitting edema of bilateral lower extremities on exam. - SCDs - 20 mg Lasix po daily, 25 meq potassium (8) Urinary tract infection Status: Resolved Plan: Urine culture Klebsiella: resolved Abx history: Rocephin 08/31-09/01 Ciprofloxacin 08/23-08/31 (Ian Genao MD R2) Problem Qualifiers (1) Anemia: Qualified Code: D64.9 - Anemia, unspecified type (2) Urinary tract infection: Qualified Code: N30.01 - Acute cystitis with hematuria Ian Genao MD R2 Sep 06, 2016 10:03 Cassy Oliver MD Sep 07, 2016 13:39
[2016-09-06 12:00] VITALS: BP 113/53; PULSE 105; RESP 18; TEMP 100.7; O2SAT 96
--- NOTE | 2016-09-06 14:17 | HHI.PR ---
Subjective Subjective Notes DAILY PROGRESS NOTE FOR SURGICAL ATTENDING, DR. LANDRY VELEZ Resting in bed No complaints Pain controlled Objective Vitals/I&O Vital Signs Date Time Temp Pulse Resp B/P Pulse Ox O2 Delivery O2 Flow Rate FiO2 09/06/16 12:00 100.7 105 18 113/53 96 Labs Laboratory Tests Test 09/06/16 05:00 White Blood Count 9.2 Red Blood Count 4.20 Hemoglobin 11.5 Hematocrit 34.9 Mean Corpuscular Volume 83.2 Mean Corpuscular Hemoglobin 27.3 Mean Corpuscular Hemoglobin 32.9 Concent Red Cell Distribution Width 17.2 Platelet Count 472 Mean Platelet Volume 7.4 Sodium Level 130 Potassium Level 4.5 Chloride Level 93 Carbon Dioxide Level 27.7 Anion Gap 9 Blood Urea Nitrogen 24 Creatinine 0.65 Estimat Glomerular Filtration 91 Rate Random Glucose 123 Calcium Level 9.4 Total Bilirubin 0.6 Aspartate Amino Transf 43 (AST/SGOT) Alanine Aminotransferase 43 (ALT/SGPT) Alkaline Phosphatase 366 Total Protein 7.8 Albumin 2.5 Radiology Cardiovascular: Regular Lungs: Clear Abdomen: Other (abd wound---- significally smaller than last exam) Extremities: No edema A/P Problem List: (1) Enterocutaneous fistula (2) Subcutaneous abscess (3) Abscess of abdominal wall Assessment and Plan 65-year-old female who recently had exploration in [place] with 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 LANDRY VELEZ I agree with above assessment and plan. The exam, history, and the medical decision-making described in the above note were completed with the assistance of the mid-level provider. I reviewed and agree with the findings presented. I attest that I had a [id number] encounter with the patient on the same day, and personally performed and documented my assessment and findings in the medical record. The following services were provided during this hospital visit: Chart data review, vital sign assessments/reviewing monitor data Review of consultations notes if present. Medication orders/review and/or management Ordering and/or reviewing lab tests Ordering and/or interpreting/reviewing x-rays and/or diagnostic studies Care of the patient and discussion of the patient with the care team Documentation time To help prompt me to consider important information that might be impacting today's encounter and assessment, information from prior notes written by myself or my colleagues may have been "brought forward/copy and pasted" into today's note. Problem Qualifiers (1) Subcutaneous abscess: Arabella Pickering Sep 06, 2016 14:17 Landry Velez MD Sep 16, 2016 10:02
[2016-09-06] MEDS: ENOXAPARIN SODIUM 40 MG/0.4 ML SYRINGE SQ SCH (14:26)
[2016-09-06] MEDS: ACETAMINOPHEN/HYDROcodone 325 MG/7.5 MG TAB PO PRN (14:26)
[2016-09-06] MEDS ORDERED: BISACODYL 10 MG SUPP RECTAL ONE (15:15)
[2016-09-06 16:00] VITALS: BP 103/55; PULSE 101; RESP 19; TEMP 98.8; O2SAT 96
--- NOTE | 2016-09-06 16:33 | RADRPT ---
EXAM DATE/TIME: 09/06/2016 15:49 [facility] COMPARISON: No previous studies available for comparison. INDICATIONS : Obstruction. MEDICAL HISTORY : Fistula. SURGICAL HISTORY : Colon resection. Colostomy. ENCOUNTER: Initial ACUITY: 2 weeks PAIN SCORE: 1/10 LOCATION: Bilateral abdomen. FINDINGS: Ostomy present on the left. Bowel gas pattern nonspecific without evidence for obstruction or free ai r. CONCLUSION: 1. Nonspecific bowel gas pattern without evidence for obstruction or free air. Adrian Rendon MD on September 06, 2016 at 16:30 Board Certified Radiologist. This report was verified electronically.
[2016-09-06] MEDS: LACTULOSE SYRUP 20 GM/30 ML CUP PO SCH (16:58)
[2016-09-06 20:00] VITALS: BP 100/59; PULSE 84; RESP 20; TEMP 97.8; O2SAT 96
[2016-09-06] MEDS: CLINIMIX E 5/25 2000 mL- >42 mls/hr IV-CENTRAL SCH ×3 (20:53)
[2016-09-06] MEDS: PRAMIPEXOLE DIHYDROCHLORIDE 0.25 MG TAB PO SCH (20:54)
[2016-09-06] MEDS: ZOLPIDEM TARTRATE 5 MG TAB PO PRN (21:25)
[2016-09-07] VITALS: BP 105/58; PULSE 84; RESP 20; TEMP 97.8; O2SAT 96
[2016-09-07] MEDS: ACETAMINOPHEN/HYDROcodone 325 MG/7.5 MG TAB PO PRN ×3 (01:49→22:29)
[2016-09-07] MEDS: ACETAMINOPHEN 1000 MG/100 ML VIAL IV SCH ×4 (05:45→20:06)
[2016-09-07 06:09] LABS: AUTOMATED NEUTROPHIL # 4.7 TH/MM3 (1.8-7.7); BASOPHIL % 0.6 % (0.0-2.0); EOSINOPHIL # 0.3 TH/MM3 (0-0.4); EOSINOPHIL % 3.8 % (0.0-4.0); HEMATOCRIT 34.5 % (35.0-46.0); HEMO FLAGS DIFF FINAL; LYMPH % 18.8 % (9.0-44.0); LYMPHOCYTE # 1.4 TH/MM3 (1.0-4.8); MONO % 13.2 % (0.0-8.0); NEUT % 63.6 % (16.0-70.0); PLATELET COUNT 484 TH/MM3 (150-450); RED BLOOD COUNT 4.21 MIL/MM3 (4.00-5.30); RED CELL DISTRIBUTION WIDTH 16.9 % (11.6-17.2); WHITE BLOOD COUNT 7.4 TH/MM3 (4.0-11.0)
[2016-09-07 06:27] LABS: ALT (GPT) 55 U/L (10-53); ANION GAP 8 MEQ/L (5-15); AST (GOT) 31 U/L (15-37); BICARBONATE 29.1 MEQ/L (21.0-32.0); BLOOD UREA NITROGEN 26 MG/DL (7-18); CHLORIDE 94 MEQ/L (98-107); GLOMERULAR FILTRATION RATE 96 ML/MIN (>89); POTASSIUM 4.7 MEQ/L (3.5-5.1); SODIUM (NA) 131 MEQ/L (136-145)
[2016-09-07 06:29] LABS: ALKALINE PHOSPHATASE 336 U/L (45-117); TOTAL BILIRUBIN ADULT 0.6 MG/DL (0.2-1.0)
[2016-09-07 08:00] VITALS: BP 97/59; PULSE 86; RESP 19; TEMP 98.4; O2SAT 96
[2016-09-07] MEDS: CLOTRIMAZOLE 1% CREAM 15 GM TOPICAL SCH ×2 (09:00→20:06)
[2016-09-07] MEDS: MAGNESIUM HYDROXIDE SUSP 30 ML CUP PO SCH (09:00)
[2016-09-07] MEDS: NYSTATIN 100,000 U/GM PWD 15 GM BTL TOPICAL SCH ×2 (09:00→20:06)
[2016-09-07] MEDS: LACTULOSE SYRUP 20 GM/30 ML CUP PO SCH (09:03)
[2016-09-07] MEDS: LACTOBACILLUS ACIDOPHILUS TAB PO SCH ×3 (09:04→17:03)
[2016-09-07] MEDS: FAMOTIDINE 20 MG TAB PO SCH ×2 (09:04→20:05)
[2016-09-07] MEDS: DULoxetine HCl DR 30 MG CAP PO SCH (09:04)
[2016-09-07] MEDS: SODIUM CHLORIDE 0.9% FLUSH 5 ML FLUSH IVF SCH ×2 (09:05→20:05)
[2016-09-07] MEDS: POTASSIUM BICARBONATE 25 MEQ EFFERVESCENT TAB PO SCH (09:05)
[2016-09-07] MEDS: FUROSEMIDE 20 MG TAB PO SCH (09:05)
[2016-09-07] MEDS: DOCUSATE SODIUM 50 MG/SENNA 8.6 MG TAB PO SCH (09:06)
[2016-09-07] MEDS: ONDANSETRON HCL 4 MG/2 ML VIAL IV PUSH PRN (09:56)
[2016-09-07] MEDS: SODIUM CHLORIDE 0.9% FLUSH 5 ML FLUSH IVF PRN (09:57)
[2016-09-07 12:00] VITALS: BP 106/83; PULSE 117; RESP 20; TEMP 98.6; O2SAT 99
--- NOTE | 2016-09-07 12:18 | HHI.PR ---
Subjective Subjective Notes DAILY PROGRESS NOTE FOR SURGICAL ATTENDING, DR. LANDRY VELEZ Rresting in bed Wound Care team at bedside Objective Vitals/I&O Vital Signs Date Time Temp Pulse Resp B/P Pulse Ox O2 Delivery O2 Flow Rate FiO2 09/07/16 08:00 98.4 86 19 97/59 96 Labs Laboratory Tests Test 09/07/16 05:30 White Blood Count 7.4 Red Blood Count 4.21 Hemoglobin 11.4 Hematocrit 34.5 Mean Corpuscular Volume 82.0 Mean Corpuscular Hemoglobin 27.0 Mean Corpuscular Hemoglobin 33.0 Concent Red Cell Distribution Width 16.9 Platelet Count 484 Mean Platelet Volume 7.5 Neutrophils (%) (Auto) 63.6 Lymphocytes (%) (Auto) 18.8 Monocytes (%) (Auto) 13.2 Eosinophils (%) (Auto) 3.8 Basophils (%) (Auto) 0.6 Neutrophils # (Auto) 4.7 Lymphocytes # (Auto) 1.4 Monocytes # (Auto) 1.0 Eosinophils # (Auto) 0.3 Basophils # (Auto) 0.0 CBC Comment DIFF FINAL Differential Comment Sodium Level 131 Potassium Level 4.7 Chloride Level 94 Carbon Dioxide Level 29.1 Anion Gap 8 Blood Urea Nitrogen 26 Creatinine 0.62 Estimat Glomerular Filtration 96 Rate Random Glucose 146 Calcium Level 9.6 Total Bilirubin 0.6 Aspartate Amino Transf 31 (AST/SGOT) Alanine Aminotransferase 55 (ALT/SGPT) Alkaline Phosphatase 336 Total Protein 7.2 Albumin 2.4 Radiology Cardiovascular: Regular Lungs: Clear Abdomen: Other (abdominal wound--- wound bag replaced over fistula for drainage ) Extremities: No edema A/P Problem List: (1) Enterocutaneous fistula (2) Subcutaneous abscess (3) Abscess of abdominal wall Assessment and Plan 65-year-old female who recently had exploration in [place] with 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 Velez in about 2-3 weeks Attending Statement NOTE FOR SURGICAL ATTENDING, DR. LANDRY VELEZ I agree with above assessment and plan. The exam, history, and the medical decision-making described in the above note were completed with the assistance of the mid-level provider. I reviewed and agree with the findings presented. I attest that I had a [id number] encounter with the patient on the same day, and personally performed and documented my assessment and findings in the medical record. The following services were provided during this hospital visit: Chart data review, vital sign assessments/reviewing monitor data Review of consultations notes if present. Medication orders/review and/or management Ordering and/or reviewing lab tests Ordering and/or interpreting/reviewing x-rays and/or diagnostic studies Care of the patient and discussion of the patient with the care team Documentation time To help prompt me to consider important information that might be impacting today's encounter and assessment, information from prior notes written by myself or my colleagues may have been "brought forward/copy and pasted" into today's note. Problem Qualifiers (1) Subcutaneous abscess: Arabella Pickering Sep 07, 2016 12:18 Landry Velez MD Sep 16, 2016 10:03
--- NOTE | 2016-09-07 14:00 | HHI.FPPN ---
Subjective Remarks No acute events overnight. Afebrile, vital signs stable. Patient still has not had a bowel movement. She reports an episode of severe nausea this morning without emesis. (Ginette Herbert MD R3) Objective Vitals Vital Signs Date Time Temp Pulse Resp B/P Pulse Ox O2 Delivery O2 Flow Rate FiO2 09/07/16 12:10 18 09/07/16 12:10 18 09/07/16 12:00 98.6 117 20 106/83 99 09/07/16 08:00 98.4 86 19 97/59 96 09/07/16 00:00 97.8 84 20 105/58 96 09/06/16 20:00 97.8 84 20 100/59 96 09/06/16 16:00 98.8 101 19 103/55 96 I/O 09/06/16 09/06/16 09/06/16 09/07/16 09/07/16 09/07/16 07:00 15:00 23:00 07:00 15:00 23:00 Intake Total 1240 ml 1080 ml 1050 ml 810 ml 120 ml Output Total 850 ml 700 ml 700 ml 600 ml Balance 390 ml 380 ml 350 ml 210 ml 120 ml Intake Oral 240 ml 1080 ml 340 ml 120 ml IV Total 200 ml 100 ml 200 ml TPN/PPN 610 ml 610 ml 610 ml Lipid 190 ml Output Urine Total 600 ml 700 ml 400 ml 300 ml Drainage Total 250 ml 300 ml 300 ml # Voids 3 2 # Bowel Movements 0 0 1 (Ginette Herbert MD R3) Result Diagram: 09/07/1652909/07/16529 Objective Remarks GENERAL: NAD SKIN: Warm and dry. Patient with ostomy bag and wound VAC covering repaired fistula. Faint erythema left lateral abdomen. Peripheral IV and PICC line in place in left arm. HEENT: Normocephalic. Atraumatic. EOMI. No scleral icterus. No injection or drainage. No nasal drainage. Moist mucous membranes. CARDIOVASCULAR: Regular rate and rhythm without murmurs, gallops, or rubs RESPIRATORY: Clear to auscultation bilaterally GASTROINTESTINAL: Abdomen obese. See skin above. Bowel sounds present. MUSCULOSKELETAL: Mild edema of bilateral lower extremities. No calf tenderness. NEURO: Awake and alert. 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 APARTMENT COORDINATOR grossly intact. 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 Discharge Planning Patient cleared by general surgery for discharge. Physical therapy recommends PT rehabilitation. Patient currently with 2 wound vacs and TPN. She will require continued TPN and wound vacs for healing. Pending clinical improvement patient will be placed at a rehabilitation facility. (Ginette Herbert MD R3) Attending Attestation Patient seen and examined with the resident team. Case reviewed and discussed Agree with plan of care as discussed with me and documented in the resident note. (Cassy Oliver MD) Problem List: (1) Enterocutaneous fistula Status: Acute Plan: General Surgery consulted, have cleared patient for discharge 07/28: Status post incision and drainage and washout of left abdominal wall, with wound vac placement due to small bowel fistula Wound VAC changes at bedside by wound care team -Pain control with [place] 7.5325 Q4hrs prn pain 610, morphine 2 mg IV q3h prn breakthrough, hold if SBP < 110 or DBP < 60 -Dilaudid when necessary with wound changes -Octreotide 100 g IV every 8 hours (09/06: currently holding as the patient has been declining treatment secondary to constipation) -Repeat blood cultures secondary to fever show no growth -Continue TPN with PICC line to reduce drainage and promote wound healing Imaging 07/28 - Abdomen/Pelvis CT: Diffuse and extensive subcutaneous emphysema around the abdominal wall from patient's right lateral abdominal wall across midline to left lateral abdominal wall. Fluid collection in anterior left abdominal wall suspicious for subcutaneous abscess. Nonspecific edema throughout subcutaneous tissues. No acute intra-abdominal or pelvic pathology. -Chest x-ray repeated on 09/01 - no acute cardiopulmonary abnormality appreciated Prior antibiotics: - Vancomycin, pharm consult (07/28-08/13) - Cefepime 2gm IV q8h (07/28-08/13) - Flagyl 500 mg IV q6h (07/28-08/13) (2) Skin rash Status: Resolved Plan: Rash improved - Completed 7 day course of fluconazole on 09/03 Nystatin powder for groin, axilla, area under breasts, and skin folds Clotrimazole cream for back of neck (3) Physical deconditioning Status: Acute Plan: Patient physically deconditioned after staying in bed for extended period of time. Nursing order to get patient out of bed at least 3 times a day as tolerated with assistance -PT recommends PT at rehabilitation. (4) Anemia Status: Acute Plan: -Currently stable - Continue to monitor - Iron panel significant for anemia of chronic disease - B12 and Folate both elevated (5) Depression Status: Acute Plan: -Continue home Cymbalta 30 mg by mouth daily (6) Nutrition, metabolism, and development symptoms Status: Acute Plan: Fluids: Hep-Lock IV Electrolytes: Electrolytes within normal limits, continue to monitor and replete as necessary Nutrition: TPN and regular diet DVT PPX: SCDs and Lovenox; risk of DVT and PE greater than risk for chronic wound bleeding GI PPX: Pepcid (7) Lower extremity edema Status: Resolved Plan: Resolved Patient with no pitting edema of bilateral lower extremities on exam. - SCDs - 20 mg Lasix po daily, 25 meq potassium (8) Urinary tract infection Status: Resolved Plan: Urine culture Klebsiella: resolved Abx history: Rocephin 08/31-09/01 Ciprofloxacin 08/23-08/31 (Ginette Herbert MD R3) Problem Qualifiers (1) Anemia: Qualified Code: D64.9 - Anemia, unspecified type (2) Urinary tract infection: Qualified Code: N30.01 - Acute cystitis with hematuria Ginette Herbert MD R3 Sep 07, 2016 14:00 Cassy Oliver MD Sep 07, 2016 16:22
[2016-09-07] MEDS: ENOXAPARIN SODIUM 40 MG/0.4 ML SYRINGE SQ SCH (14:41)
[2016-09-07 16:00] VITALS: BP 109/60; PULSE 97; RESP 20; TEMP 97.3; O2SAT 97
[2016-09-07 20:00] VITALS: BP 107/69; PULSE 93; RESP 20; TEMP 97.8; O2SAT 98
[2016-09-07] MEDS: ZOLPIDEM TARTRATE 5 MG TAB PO PRN (20:05)
[2016-09-07] MEDS: PRAMIPEXOLE DIHYDROCHLORIDE 0.25 MG TAB PO SCH (20:05)
[2016-09-07] MEDS: CLINIMIX E 5/25 2000 mL- >42 mls/hr IV-CENTRAL SCH ×3 (20:05)
[2016-09-07] MEDS: POLYETHYLENE GLYCOL 17 GM PKG PO PRN (20:27)
[2016-09-08] MEDS: ACETAMINOPHEN 1000 MG/100 ML VIAL IV SCH (05:44)
[2016-09-08 06:09] LABS: AUTOMATED NEUTROPHIL # 5.3 TH/MM3 (1.8-7.7); BASOPHIL # 0.1 TH/MM3 (0-0.2); BASOPHIL % 0.7 % (0.0-2.0); EOSINOPHIL # 0.3 TH/MM3 (0-0.4); HEMATOCRIT 35.5 % (35.0-46.0); HEMO FLAGS DIFF FINAL; LYMPH % 17.7 % (9.0-44.0); LYMPHOCYTE # 1.5 TH/MM3 (1.0-4.8); MEAN CELL VOLUME 82.2 FL (80.0-100.0); MEAN CORPUSCULAR HEMOGLOBIN 27.2 PG (27.0-34.0); MEAN CORPUSCULAR HGB CONC 33.1 % (32.0-36.0); MONO % 13.3 % (0.0-8.0); NEUT % 64.3 % (16.0-70.0); PLATELET COUNT 523 TH/MM3 (150-450); RED BLOOD COUNT 4.32 MIL/MM3 (4.00-5.30); RED CELL DISTRIBUTION WIDTH 17.3 % (11.6-17.2); WHITE BLOOD COUNT 8.3 TH/MM3 (4.0-11.0)
[2016-09-08 06:49] LABS: ALKALINE PHOSPHATASE 352 U/L (45-117); ALT (GPT) 53 U/L (10-53); ANION GAP 9 MEQ/L (5-15); AST (GOT) 21 U/L (15-37); BICARBONATE 27.4 MEQ/L (21.0-32.0); BLOOD UREA NITROGEN 38 MG/DL (7-18); CHLORIDE 94 MEQ/L (98-107); GLOMERULAR FILTRATION RATE 80 ML/MIN (>89); SODIUM (NA) 130 MEQ/L (136-145); TOTAL BILIRUBIN ADULT 0.5 MG/DL (0.2-1.0)
[2016-09-08 08:00] VITALS: BP 95/60; PULSE 90; RESP 19; TEMP 98.1; O2SAT 96
--- NOTE | 2016-09-08 08:00 | HHI.FPPN ---
Subjective Remarks Patient is doing well this morning. She had a good day yesterday. She slept well last night. She has not had a bowel movement. Her rashes are improving. She is getting out of bed throughout the day. She has started eating as tolerated. [facility] No fever, chills, chest pain, shortness of breath. (Ian Genao MD R2) Objective Vitals Vital Signs Date Time Temp Pulse Resp B/P Pulse Ox O2 Delivery O2 Flow Rate FiO2 09/07/16 20:00 97.8 93 20 107/69 98 09/07/16 17:33 18 09/07/16 16:00 97.3 97 20 109/60 97 09/07/16 12:10 18 09/07/16 12:00 98.6 117 20 106/83 99 09/07/16 08:00 98.4 86 19 97/59 96 I/O 09/07/16 09/07/16 09/07/16 09/08/16 09/08/16 09/08/16 07:00 15:00 23:00 07:00 15:00 23:00 Intake Total 810 ml 1352 ml 1135 ml 945 ml Output Total 600 ml 1150 ml 700 ml 1000 ml Balance 210 ml 202 ml 435 ml -55 ml Intake Oral 600 ml 480 ml 120 ml IV Total 200 ml 752 ml 200 ml TPN/PPN 610 ml 655 ml 625 ml Output Urine Total 300 ml 500 ml 300 ml 800 ml Drainage Total 300 ml 650 ml 400 ml 200 ml # Bowel Movements 0 (Ian Genao MD R2) Result Diagram: 09/08/1652909/08/1630 Objective Remarks GENERAL: NAD SKIN: Warm and dry. Patient with ostomy bag and wound VAC covering repaired fistula. Faint erythema left lateral abdomen. Peripheral IV and PICC line in place in left arm. HEENT: Normocephalic. Atraumatic. EOMI. No scleral icterus. No injection or drainage. No nasal drainage. Moist mucous membranes. CARDIOVASCULAR: Regular rate and rhythm without murmurs, gallops, or rubs RESPIRATORY: Clear to auscultation bilaterally GASTROINTESTINAL: Abdomen obese. See skin above. Bowel sounds present. MUSCULOSKELETAL: Mild edema of bilateral lower extremities. No calf tenderness. NEURO: Awake and alert. 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 RN TRAINING grossly intact. 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 Discharge Planning Patient cleared by general surgery for discharge. Physical therapy recommends PT rehabilitation. Likely discharge Saturday to [facility] rehab. Patient will be on TPN. [id number] signed. (Ian Genao MD R2) Attending Attestation Patient seen and examined. Case reviewed and discussed Agree with plan of care as discussed with me and documented in the resident note. (Cassy Oliver MD) Problem List: (1) Enterocutaneous fistula Status: Acute Plan: General Surgery consulted, have cleared patient for discharge 07/28: Status post incision and drainage and washout of left abdominal wall, with wound vac placement due to small bowel fistula Wound VAC changes at bedside by wound care team -Pain control with [place] 7.5325 Q4hrs prn pain 610, morphine 2 mg IV q3h prn breakthrough, hold if SBP < 110 or DBP < 60 -Dilaudid when necessary with wound changes -Octreotide 100 g IV every 8 hours (09/06: currently holding as the patient has been declining treatment secondary to constipation) -Repeat blood cultures secondary to fever show no growth -Continue TPN with PICC line to reduce drainage and promote wound healing Imaging 07/28 - Abdomen/Pelvis CT: Diffuse and extensive subcutaneous emphysema around the abdominal wall from patient's right lateral abdominal wall across midline to left lateral abdominal wall. Fluid collection in anterior left abdominal wall suspicious for subcutaneous abscess. Nonspecific edema throughout subcutaneous tissues. No acute intra-abdominal or pelvic pathology. -Chest x-ray repeated on 09/01 - no acute cardiopulmonary abnormality appreciated Prior antibiotics: - Vancomycin, pharm consult (07/28-08/13) - Cefepime 2gm IV q8h (07/28-08/13) - Flagyl 500 mg IV q6h (07/28-08/13) (2) Skin rash Status: Resolved Plan: Rash improved - Completed 7 day course of fluconazole on 09/03 Nystatin powder for groin, axilla, area under breasts, and skin folds Clotrimazole cream for back of neck (3) Physical deconditioning Status: Acute Plan: Patient physically deconditioned after staying in bed for extended period of time. Nursing order to get patient out of bed at least 3 times a day as tolerated with assistance -PT recommends PT at rehabilitation. (4) Anemia Status: Acute Plan: -Currently stable - Continue to monitor - Iron panel significant for anemia of chronic disease - B12 and Folate both elevated (5) Depression Status: Acute Plan: -Continue home Cymbalta 30 mg by mouth daily (6) Nutrition, metabolism, and development symptoms Status: Acute Plan: Fluids: Hep-Lock IV Electrolytes: Electrolytes within normal limits, continue to monitor and replete as necessary Nutrition: TPN and regular diet DVT PPX: SCDs and Lovenox; risk of DVT and PE greater than risk for chronic wound bleeding GI PPX: Pepcid (7) Lower extremity edema Status: Resolved Plan: Resolved Patient with no pitting edema of bilateral lower extremities on exam. - SCDs - 20 mg Lasix po daily, 25 meq potassium (8) Urinary tract infection Status: Resolved Plan: Urine culture Klebsiella: resolved Abx history: Rocephin 08/31-09/01 Ciprofloxacin 08/23-08/31 (Ian Genao MD R2) Problem Qualifiers (1) Anemia: Qualified Code: D64.9 - Anemia, unspecified type (2) Urinary tract infection: Qualified Code: N30.01 - Acute cystitis with hematuria Ian Genao MD R2 Sep 08, 2016 08:00 Cassy Oliver MD Sep 10, 2016 09:01
[2016-09-08] MEDS: LACTULOSE SYRUP 20 GM/30 ML CUP PO SCH ×2 (08:54→19:46)
[2016-09-08] MEDS: FAMOTIDINE 20 MG TAB PO SCH ×2 (08:55→19:46)
[2016-09-08] MEDS: DULoxetine HCl DR 30 MG CAP PO SCH (08:55)
[2016-09-08] MEDS: MAGNESIUM HYDROXIDE SUSP 30 ML CUP PO SCH (08:55)
[2016-09-08] MEDS: POTASSIUM BICARBONATE 25 MEQ EFFERVESCENT TAB PO SCH (08:55)
[2016-09-08] MEDS: LACTOBACILLUS ACIDOPHILUS TAB PO SCH ×3 (08:55→16:51)
[2016-09-08] MEDS: FUROSEMIDE 20 MG TAB PO SCH (08:55)
[2016-09-08] MEDS: CLOTRIMAZOLE 1% CREAM 15 GM TOPICAL SCH ×2 (08:56→19:47)
[2016-09-08] MEDS: DOCUSATE SODIUM 50 MG/SENNA 8.6 MG TAB PO SCH ×2 (08:56→19:46)
[2016-09-08] MEDS: NYSTATIN 100,000 U/GM PWD 15 GM BTL TOPICAL SCH ×2 (08:56→19:47)
[2016-09-08] MEDS: SODIUM CHLORIDE 0.9% FLUSH 5 ML FLUSH IVF SCH ×2 (09:00→19:45)
[2016-09-08 12:00] VITALS: BP 101/61; PULSE 80; RESP 17; TEMP 98; O2SAT 96
[2016-09-08] MEDS: POLYETHYLENE GLYCOL 17 GM PKG PO SCH (12:00)
[2016-09-08] MEDS: BISACODYL 10 MG SUPP RECTAL PRN (12:11)
[2016-09-08] MEDS: ONDANSETRON HCL 4 MG/2 ML VIAL IV PUSH PRN (13:39)
[2016-09-08] MEDS: OCTREOTIDE INJ 100 MCG/ML VIAL IV PUSH SCH ×2 (14:00→19:47)
--- NOTE | 2016-09-08 15:26 | HHI.FPPN ---
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 She presented with abdominal wall abscess, which was treated with long-term, broad-spectrum antibiotics, which has since been discontinued. Pt with another area of wound dehiscence along midline incision that is also connected to wound VAC; this seems to be healing well. However, the chronic wound continues to leak. The yellow liquid fecal matter coming from her ostomy disrupts the adhesive, occlusive dressings covering the wound VAC over the LLQ of her abdomen and leaks onto her skin. The leak prevents the wound VAC from helping to close her wound, and causes skin irritation. Wound care team and general surgery see the patient about every other day to modify the wound VAC and try to stop the leak, but it keeps leaking. As a result, pt has recently had PICC line placed, so she can be on TPN to increase nutrition for wound healing and to decrease ostomy output. She has also had multiple fungal skin infections for which she is being treated with nystatin and clotrimazole topical and for which she completed 5 day course of fluconazole by mouth. Her most recent problem is constipation for 2 weeks. She needs to have a bowel movement before she can be transferred to an acute rehabilitation center. She is still on TPN, and she can go to the rehabilitation center on TPN as long as we set a stop date. (Estefani Willett MD R1) Estefani Willett MD R1 Sep 08, 2016 15:26 Cassy Oliver MD Sep 10, 2016 09:00
[2016-09-08 16:00] VITALS: BP 96/64; PULSE 100; RESP 18; TEMP 99.2; O2SAT 96
[2016-09-08] MEDS: ENOXAPARIN SODIUM 40 MG/0.4 ML SYRINGE SQ SCH (16:51)
[2016-09-08] MEDS: PRAMIPEXOLE DIHYDROCHLORIDE 0.25 MG TAB PO SCH (19:45)
[2016-09-08] MEDS: CLINIMIX E 5/25 2000 mL- >42 mls/hr IV-CENTRAL SCH ×3 (19:45)
[2016-09-08 20:00] VITALS: BP 96/65; PULSE 106; RESP 17; TEMP 98.8; O2SAT 95
[2016-09-09] VITALS: BP 98/65; PULSE 87; RESP 17; TEMP 97.4; O2SAT 96
[2016-09-09] MEDS: ZOLPIDEM TARTRATE 5 MG TAB PO PRN ×2 (00:21→23:03)
[2016-09-09] MEDS: OCTREOTIDE INJ 100 MCG/ML VIAL IV PUSH SCH ×3 (05:09→20:08)
[2016-09-09 06:46] LABS: AUTOMATED NEUTROPHIL # 7.9 TH/MM3 (1.8-7.7); BASOPHIL # 0.1 TH/MM3 (0-0.2); BASOPHIL % 0.9 % (0.0-2.0); EOSINOPHIL # 0.2 TH/MM3 (0-0.4); EOSINOPHIL % 1.8 % (0.0-4.0); HEMATOCRIT 36.2 % (35.0-46.0); HEMO FLAGS DIFF FINAL; LYMPH % 13.4 % (9.0-44.0); LYMPHOCYTE # 1.5 TH/MM3 (1.0-4.8); MEAN CELL VOLUME 82.3 FL (80.0-100.0); MEAN CORPUSCULAR HGB CONC 32.8 % (32.0-36.0); MONO % 10.7 % (0.0-8.0); NEUT % 73.2 % (16.0-70.0); PLATELET COUNT 524 TH/MM3 (150-450); RED BLOOD COUNT 4.39 MIL/MM3 (4.00-5.30); RED CELL DISTRIBUTION WIDTH 17.3 % (11.6-17.2); WHITE BLOOD COUNT 10.8 TH/MM3 (4.0-11.0)
[2016-09-09 07:25] LABS: ALKALINE PHOSPHATASE 381 U/L (45-117); ALT (GPT) 48 U/L (10-53); ANION GAP 11 MEQ/L (5-15); AST (GOT) 25 U/L (15-37); BLOOD UREA NITROGEN 50 MG/DL (7-18); CHLORIDE 91 MEQ/L (98-107); GLOMERULAR FILTRATION RATE 60 ML/MIN (>89); SODIUM (NA) 129 MEQ/L (136-145); TOTAL BILIRUBIN ADULT 0.7 MG/DL (0.2-1.0)
[2016-09-09] MEDS: ACETAMINOPHEN/HYDROcodone 325 MG/7.5 MG TAB PO PRN ×3 (08:04→21:09)
[2016-09-09] MEDS: DOCUSATE SODIUM 50 MG/SENNA 8.6 MG TAB PO SCH ×2 (08:05→20:08)
[2016-09-09] MEDS: FAMOTIDINE 20 MG TAB PO SCH ×2 (08:05→20:07)
[2016-09-09 08:06] VITALS: BP 99/53; PULSE 93; RESP 20; TEMP 98.5; O2SAT 97
[2016-09-09] MEDS: DULoxetine HCl DR 30 MG CAP PO SCH (08:06)
[2016-09-09] MEDS: POTASSIUM BICARBONATE 25 MEQ EFFERVESCENT TAB PO SCH (08:07)
[2016-09-09] MEDS: LACTOBACILLUS ACIDOPHILUS TAB PO SCH ×3 (08:08→18:17)
[2016-09-09] MEDS: LACTULOSE SYRUP 20 GM/30 ML CUP PO SCH ×2 (08:12→20:08)
[2016-09-09] MEDS: NYSTATIN 100,000 U/GM PWD 15 GM BTL TOPICAL SCH ×2 (08:12→20:09)
[2016-09-09] MEDS: SODIUM CHLORIDE 0.9% FLUSH 5 ML FLUSH IVF SCH ×2 (08:12→20:08)
[2016-09-09] MEDS: CLOTRIMAZOLE 1% CREAM 15 GM TOPICAL SCH ×2 (08:12→20:09)
[2016-09-09] MEDS: FUROSEMIDE 20 MG TAB PO SCH (08:13)
[2016-09-09] MEDS: POLYETHYLENE GLYCOL 17 GM PKG PO SCH (08:13)
--- NOTE | 2016-09-09 11:04 | HHI.FPPN ---
Subjective Remarks Patient is doing well this morning. She had a good bowel movement yesterday. She is getting out of bed with physical therapy. Her rashes are improving. Eating more including mashed potatoes last night. No fever, chills, nausea, vomiting, chest pain, shortness of breath. (Ian Genao MD R2) Objective Vitals Vital Signs Date Time Temp Pulse Resp B/P Pulse Ox O2 Delivery O2 Flow Rate FiO2 09/09/16 09:04 18 09/09/16 08:06 98.5 93 20 99/53 97 09/09/16 00:00 97.4 87 17 98/65 96 09/08/16 20:00 98.8 106 17 96/65 95 09/08/16 16:00 99.2 100 18 96/64 96 09/08/16 12:00 98.0 80 17 101/61 96 I/O 09/08/16 09/08/16 09/08/16 09/09/16 09/09/16 09/09/16 07:00 15:00 23:00 07:00 15:00 23:00 Intake Total 945 ml 1534 ml 305 ml 910 ml 120 ml Output Total 1000 ml 1100 ml 925 ml Balance -55 ml 434 ml -620 ml 910 ml 120 ml Intake Oral 120 ml 480 ml 240 ml 240 ml 120 ml IV Total 200 ml 65 ml TPN/PPN 625 ml 1054 ml 670 ml Output Urine Total 800 ml 500 ml Drainage Total 200 ml 1100 ml 425 ml # Voids 3 (Ian Genao MD R2) Result Diagram: 09/09/1662409/09/1625 Objective Remarks GENERAL: NAD SKIN: Warm and dry. Patient with ostomy bag and wound VAC covering repaired fistula. Faint erythema left lateral abdomen. Peripheral IV and PICC line in place in left arm. HEENT: Normocephalic. Atraumatic. EOMI. No scleral icterus. No injection or drainage. No nasal drainage. Moist mucous membranes. CARDIOVASCULAR: Regular rate and rhythm without murmurs, gallops, or rubs RESPIRATORY: Clear to auscultation bilaterally GASTROINTESTINAL: Abdomen obese. See skin above. Bowel sounds present. MUSCULOSKELETAL: Mild edema of bilateral lower extremities. No calf tenderness. NEURO: Awake and alert. 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 LEGAL ARCHIVIST grossly intact. 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 Discharge Planning Patient cleared by general surgery for discharge. Physical therapy recommends PT rehabilitation. Likely discharge Saturday to [facility] rehab. Patient will be on TPN. [id number] signed. (Ian Genao MD R2) Attending Attestation Patient seen and examined. Case reviewed and discussed. Agree with plan of care as discussed with me and documented in the resident note. (Cassy Oliver MD) Problem List: (1) Enterocutaneous fistula Status: Acute Plan: General Surgery consulted, have cleared patient for discharge 07/28: Status post incision and drainage and washout of left abdominal wall, with wound vac placement due to small bowel fistula Wound VAC changes at bedside by wound care team -Pain control with [place] 7.5325 Q4hrs prn pain 610, morphine 2 mg IV q3h prn breakthrough, hold if SBP < 110 or DBP < 60 -Dilaudid when necessary with wound changes -Octreotide 100 g IV every 8 hours (09/06: currently holding as the patient has been declining treatment secondary to constipation) -Repeat blood cultures secondary to fever show no growth -Continue TPN with PICC line to reduce drainage and promote wound healing Imaging 07/28 - Abdomen/Pelvis CT: Diffuse and extensive subcutaneous emphysema around the abdominal wall from patient's right lateral abdominal wall across midline to left lateral abdominal wall. Fluid collection in anterior left abdominal wall suspicious for subcutaneous abscess. Nonspecific edema throughout subcutaneous tissues. No acute intra-abdominal or pelvic pathology. -Chest x-ray repeated on 09/01 - no acute cardiopulmonary abnormality appreciated Prior antibiotics: - Vancomycin, pharm consult (07/28-08/13) - Cefepime 2gm IV q8h (07/28-08/13) - Flagyl 500 mg IV q6h (07/28-08/13) (2) Skin rash Status: Resolved Plan: Rash improved - Completed 7 day course of fluconazole on 09/03 Nystatin powder for groin, axilla, area under breasts, and skin folds Clotrimazole cream for back of neck (3) Physical deconditioning Status: Acute Plan: Patient physically deconditioned after staying in bed for extended period of time. Nursing order to get patient out of bed at least 3 times a day as tolerated with assistance -PT recommends PT at rehabilitation. (4) Anemia Status: Acute Plan: -Currently stable - Continue to monitor - Iron panel significant for anemia of chronic disease - B12 and Folate both elevated (5) Depression Status: Chronic Plan: -Continue home Cymbalta 30 mg by mouth daily (6) Nutrition, metabolism, and development symptoms Status: Acute Plan: Fluids: Hep-Lock IV Electrolytes: Electrolytes within normal limits, continue to monitor and replete as necessary Nutrition: TPN and regular diet DVT PPX: SCDs and Lovenox; risk of DVT and PE greater than risk for chronic wound bleeding GI PPX: Pepcid (7) Lower extremity edema Status: Resolved Plan: Resolved Patient with no pitting edema of bilateral lower extremities on exam. - SCDs - 20 mg Lasix po daily, 25 meq potassium (8) Urinary tract infection Status: Acute Plan: Urine culture Klebsiella: resolved Abx history: Rocephin 08/31-09/01 Ciprofloxacin 08/23-08/31 (Ian Genao MD R2) Problem Qualifiers (1) Anemia: Qualified Code: D64.9 - Anemia, unspecified type (2) Urinary tract infection: Qualified Code: N30.01 - Acute cystitis with hematuria Ian Genao MD R2 Sep 09, 2016 11:04 Cassy Oliver MD Sep 13, 2016 17:36
[2016-09-09 11:51] VITALS: BP 100/63; PULSE 92; RESP 17; TEMP 98; O2SAT 97
[2016-09-09] MEDS: ENOXAPARIN SODIUM 40 MG/0.4 ML SYRINGE SQ SCH (15:04)
[2016-09-09 16:00] VITALS: BP 110/60; PULSE 95; RESP 17; TEMP 98.4; O2SAT 97
[2016-09-09] MEDS: FAT EMULSION 20% INJ 250 ML (Twice weekly over 8 hours) IV-CENTRAL SCH (19:59)
[2016-09-09] MEDS: CLINIMIX E 5/25 2000 mL- >42 mls/hr IV-CENTRAL SCH ×3 (19:59)
[2016-09-09 20:00] VITALS: BP 101/59; PULSE 91; RESP 17; TEMP 98; O2SAT 96
[2016-09-09] MEDS: PRAMIPEXOLE DIHYDROCHLORIDE 0.25 MG TAB PO SCH (20:07)
[2016-09-10] VITALS: BP 119/59; PULSE 101; RESP 18; TEMP 96.7; O2SAT 97
[2016-09-10] MEDS: OCTREOTIDE INJ 100 MCG/ML VIAL IV PUSH SCH ×3 (05:18→22:00)
[2016-09-10 06:25] LABS: AUTOMATED NEUTROPHIL # 10.3 TH/MM3 (1.8-7.7); BASOPHIL # 0.1 TH/MM3 (0-0.2); EOSINOPHIL # 0.3 TH/MM3 (0-0.4); EOSINOPHIL % 2.7 % (0.0-4.0); HEMATOCRIT 36.7 % (35.0-46.0); HEMO FLAGS DIFF FINAL; LYMPH % 9.4 % (9.0-44.0); LYMPHOCYTE # 1.2 TH/MM3 (1.0-4.8); MEAN CELL VOLUME 81.8 FL (80.0-100.0); NEUT % 78.9 % (16.0-70.0); PLATELET COUNT 500 TH/MM3 (150-450); RED BLOOD COUNT 4.48 MIL/MM3 (4.00-5.30); RED CELL DISTRIBUTION WIDTH 17.2 % (11.6-17.2); WHITE BLOOD COUNT 13.1 TH/MM3 (4.0-11.0)
[2016-09-10 07:20] LABS: ALKALINE PHOSPHATASE 384 U/L (45-117); ALT (GPT) 58 U/L (10-53); ANION GAP 10 MEQ/L (5-15); AST (GOT) 32 U/L (15-37); BLOOD UREA NITROGEN 61 MG/DL (7-18); CHLORIDE 91 MEQ/L (98-107); GLOMERULAR FILTRATION RATE 63 ML/MIN (>89); POTASSIUM 5.7 MEQ/L (3.5-5.1); SODIUM (NA) 126 MEQ/L (136-145); TOTAL BILIRUBIN ADULT 0.7 MG/DL (0.2-1.0)
[2016-09-10 08:00] VITALS: BP 114/57; PULSE 94; RESP 16; TEMP 97.8; O2SAT 96
[2016-09-10] MEDS: NYSTATIN 100,000 U/GM PWD 15 GM BTL TOPICAL SCH ×2 (09:00→21:00)
[2016-09-10] MEDS: POTASSIUM BICARBONATE 25 MEQ EFFERVESCENT TAB PO SCH (09:00)
[2016-09-10] MEDS: POLYETHYLENE GLYCOL 17 GM PKG PO SCH (09:00)
--- NOTE | 2016-09-10 10:16 | HHI.FPPN ---
Subjective Remarks Patient was sitting up in chair, appears comfortable. She says that she is ready to go to a [facility] facility. She reports minimal drainage from the fistula on her left lower quadrant. She denies any fevers or chills. She is ambulating without difficulty. She has no shortness of breath or chest pain. She is tolerating small amounts of mass potatoes. She reports that she wants to eat a tuna tonight. Spoke with Arabella LINARES, with general surgery, and she feels that the wound is improving since admission. Recommends 2-4 weeks of TNP, pending wound healing. (Brett Beth MD R2) Objective Vitals Vital Signs Date Time Temp Pulse Resp B/P Pulse Ox O2 Delivery O2 Flow Rate FiO2 09/10/16 08:00 97.8 94 16 114/57 96 09/10/16 00:00 96.7 101 18 119/59 97 09/09/16 20:00 98.0 91 17 101/59 96 09/09/16 16:06 18 09/09/16 16:00 98.4 95 17 110/60 97 09/09/16 11:51 98.0 92 17 100/63 97 I/O 09/09/16 09/09/16 09/09/16 09/10/16 09/10/16 09/10/16 07:00 15:00 23:00 07:00 15:00 23:00 Intake Total 910 ml 1080 ml 1165 ml 1225 ml Output Total 1350 ml 100 ml 800 ml Balance 910 ml -270 ml 1065 ml 425 ml Intake Oral 240 ml 1080 ml 240 ml TPN/PPN 670 ml 1165 ml 735 ml Lipid 250 ml Output Urine Total 800 ml Drainage Total 550 ml 100 ml 800 ml # Voids 3 3 (Brett Beth MD R2) Result Diagram: 09/10/16 0600 09/10/16 0600 Objective Remarks GENERAL: NAD SKIN: Warm and dry. Patient with ostomy bag and wound VAC covering repaired fistula. Faint erythema left lateral abdomen. Peripheral IV and PICC line in place in left arm. HEENT: Normocephalic. Atraumatic. EOMI. No scleral icterus. No injection or drainage. No nasal drainage. Moist mucous membranes. CARDIOVASCULAR: Regular rate and rhythm without murmurs, gallops, or rubs RESPIRATORY: Clear to auscultation bilaterally GASTROINTESTINAL: Abdomen obese. See skin above. Bowel sounds present. MUSCULOSKELETAL: Mild edema of bilateral lower extremities. No calf tenderness. NEURO: Awake and alert. 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 CONCRETE FLOATER grossly intact. 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 Discharge Planning Patient cleared by general surgery for discharge. Physical therapy recommends PT rehabilitation. Likely discharge tomorrow 09/11/2016 to [facility] rehab. Patient will be on TPN until 10/01/16. [id number] signed. (Brett Beth MD R2) Attending Attestation Patient seen and examined. Case reviewed and discussed. Agree with plan of care as discussed with me and documented in the resident note. (Cassy Oliver MD) Problem List: (1) Enterocutaneous fistula Status: Acute Plan: General Surgery consulted, have cleared patient for discharge 07/28: Status post incision and drainage and washout of left abdominal wall, with wound vac placement due to small bowel fistula Wound VAC changes at bedside by wound care team -Pain control with [place] 7.5325 Q4hrs prn pain 610, morphine 2 mg IV q3h prn breakthrough, hold if SBP < 110 or DBP < 60 -Dilaudid when necessary with wound changes -Octreotide 100 g IV every 8 hours (09/06: currently holding as the patient has been declining treatment secondary to constipation) -Repeat blood cultures secondary to fever show no growth -Continue TPN with PICC line to reduce drainage and promote wound healing Imaging 07/28 - Abdomen/Pelvis CT: Diffuse and extensive subcutaneous emphysema around the abdominal wall from patient's right lateral abdominal wall across midline to left lateral abdominal wall. Fluid collection in anterior left abdominal wall suspicious for subcutaneous abscess. Nonspecific edema throughout subcutaneous tissues. No acute intra-abdominal or pelvic pathology. -Chest x-ray repeated on 09/01 - no acute cardiopulmonary abnormality appreciated Prior antibiotics: - Vancomycin, pharm consult (07/28-08/13) - Cefepime 2gm IV q8h (07/28-08/13) - Flagyl 500 mg IV q6h (07/28-08/13) 09/10/2016: Slight elevation in white blood cells. From 10,000-13,000. We'll continue to monitor. Patient at high risk for wound infection. If stable, anticipate discharge on 09/11/2016. (2) Skin rash Status: Resolved Plan: Rash improved - Completed 7 day course of fluconazole on 09/03 Nystatin powder for groin, axilla, area under breasts, and skin folds Clotrimazole cream for back of neck (3) Physical deconditioning Status: Acute Plan: Patient physically deconditioned after staying in bed for extended period of time. Nursing order to get patient out of bed at least 3 times a day as tolerated with assistance -PT recommends PT at rehabilitation. (4) Anemia Status: Acute Plan: -Currently stable - Continue to monitor - Iron panel significant for anemia of chronic disease - B12 and Folate both elevated (5) Depression Status: Chronic Plan: -Continue home Cymbalta 30 mg by mouth daily (6) Nutrition, metabolism, and development symptoms Status: Acute Plan: Fluids: Hep-Lock IV Electrolytes: Potassium increased from 5.0-5.7. Will hold the potassium bicarbonate. Recheck BMP in the morning. Nutrition: TPN and regular diet DVT PPX: SCDs and Lovenox; risk of DVT and PE greater than risk for chronic wound bleeding GI PPX: Pepcid (7) Lower extremity edema Status: Resolved Plan: Resolved Patient with no pitting edema of bilateral lower extremities on exam. - SCDs - 20 mg Lasix po daily, 25 meq potassium (8) Urinary tract infection Status: Acute Plan: Urine culture Klebsiella: resolved Abx history: Rocephin 08/31-09/01 Ciprofloxacin 08/23-08/31 (Brett Beth MD R2) Problem Qualifiers (1) Anemia: Qualified Code: D64.9 - Anemia, unspecified type (2) Urinary tract infection: Qualified Code: N30.01 - Acute cystitis with hematuria Brett Beth MD R2 Sep 10, 2016 10:16 Cassy Oliver MD Sep 13, 2016 17:35
[2016-09-10] MEDS: ONDANSETRON HCL 4 MG/2 ML VIAL IV PUSH PRN ×3 (10:26→22:17)
[2016-09-10] MEDS: LACTULOSE SYRUP 20 GM/30 ML CUP PO SCH ×2 (10:30→21:00)
[2016-09-10] MEDS: LACTOBACILLUS ACIDOPHILUS TAB PO SCH ×3 (10:30→18:00)
[2016-09-10] MEDS: DOCUSATE SODIUM 50 MG/SENNA 8.6 MG TAB PO SCH ×2 (10:31→21:00)
[2016-09-10] MEDS: DULoxetine HCl DR 30 MG CAP PO SCH (10:31)
[2016-09-10] MEDS: FAMOTIDINE 20 MG TAB PO SCH ×2 (10:32→21:00)
[2016-09-10] MEDS: FUROSEMIDE 20 MG TAB PO SCH (10:32)
[2016-09-10] MEDS: CLOTRIMAZOLE 1% CREAM 15 GM TOPICAL SCH ×2 (10:34→21:00)
[2016-09-10] MEDS ORDERED: CLOT1CRE6 TOPICAL (10:59)
[2016-09-10] MEDS ORDERED: HYDR-3580 PO (10:59)
[2016-09-10] MEDS ORDERED: LACT PO (10:59)
[2016-09-10] MEDS ORDERED: FURO20TA PO (10:59)
[2016-09-10] MEDS ORDERED: [UNRECOGNIZED DRUG - CODE] INTRACATH (10:59)
[2016-09-10] MEDS ORDERED: SENN1TAB PO (10:59)
[2016-09-10] MEDS ORDERED: LACT10SO PO (10:59)
[2016-09-10] MEDS ORDERED: FAMO20TA2 PO (10:59)
[2016-09-10] MEDS ORDERED: MIRA0.25 PO (10:59)
[2016-09-10] MEDS ORDERED: AMBI5TAB PO (10:59)
[2016-09-10] MEDS: ACETAMINOPHEN/HYDROcodone 325 MG/7.5 MG TAB PO PRN ×2 (11:25→18:13)
[2016-09-10 12:00] VITALS: BP 100/55; PULSE 99; RESP 17; TEMP 98.9; O2SAT 97
[2016-09-10] MEDS: ENOXAPARIN SODIUM 40 MG/0.4 ML SYRINGE SQ SCH (15:21)
[2016-09-10] MEDS: SODIUM CHLORIDE 0.9% FLUSH 5 ML FLUSH IVF SCH ×2 (15:22→21:00)
[2016-09-10 16:00] VITALS: BP 108/60; PULSE 98; RESP 18; TEMP 98.3; O2SAT 98
[2016-09-10] MEDS: PRAMIPEXOLE DIHYDROCHLORIDE 0.25 MG TAB PO SCH (20:00)
[2016-09-10] MEDS: CLINIMIX E 5/25 2000 mL- >42 mls/hr IV-CENTRAL SCH ×3 (20:00)
[2016-09-10 22:05] VITALS: BP 102/70; PULSE 112; RESP 18; TEMP 98.5; O2SAT 95
[2016-09-11] MEDS: ZOLPIDEM TARTRATE 5 MG TAB PO PRN ×2 (00:27→22:52)
[2016-09-11 01:09] VITALS: BP 98/57; PULSE 89; RESP 18; TEMP 98.5; O2SAT 98
[2016-09-11] MEDS: ACETAMINOPHEN/HYDROcodone 325 MG/7.5 MG TAB PO PRN ×4 (02:32→22:38)
[2016-09-11] MEDS: OCTREOTIDE INJ 100 MCG/ML VIAL IV PUSH SCH ×3 (05:20→22:00)
[2016-09-11 06:55] LABS: AUTOMATED NEUTROPHIL # 14.2 TH/MM3 (1.8-7.7); BASOPHIL # 0.1 TH/MM3 (0-0.2); BASOPHIL % 0.3 % (0.0-2.0); EOSINOPHIL # 0.1 TH/MM3 (0-0.4); EOSINOPHIL % 0.9 % (0.0-4.0); HEMATOCRIT 35.5 % (35.0-46.0); HEMO FLAGS DIFF FINAL; LYMPH % 5.9 % (9.0-44.0); MEAN CORPUSCULAR HEMOGLOBIN 26.7 PG (27.0-34.0); MEAN CORPUSCULAR HGB CONC 32.5 % (32.0-36.0); NEUT % 86.9 % (16.0-70.0); PLATELET COUNT 412 TH/MM3 (150-450); RED BLOOD COUNT 4.33 MIL/MM3 (4.00-5.30); RED CELL DISTRIBUTION WIDTH 17.4 % (11.6-17.2); WHITE BLOOD COUNT 16.3 TH/MM3 (4.0-11.0)
[2016-09-11 07:07] LABS: BICARBONATE 22.3 MEQ/L (21.0-32.0); POTASSIUM 5.6 MEQ/L (3.5-5.1)
[2016-09-11] MEDS ORDERED: SODIUM CHLOR 0.9% 1000 ML INJ 1,000 ML IV ONE (07:30)
[2016-09-11 08:06] VITALS: BP 114/56; PULSE 88; RESP 17; TEMP 98; O2SAT 96
[2016-09-11] MEDS: CLOTRIMAZOLE 1% CREAM 15 GM TOPICAL SCH ×2 (09:00→21:00)
[2016-09-11] MEDS: NYSTATIN 100,000 U/GM PWD 15 GM BTL TOPICAL SCH ×2 (09:00→21:00)
[2016-09-11] MEDS: SODIUM CHLORIDE 0.9% FLUSH 5 ML FLUSH IVF SCH ×2 (09:00→22:33)
[2016-09-11] MEDS: POLYETHYLENE GLYCOL 17 GM PKG PO SCH (09:00)
[2016-09-11] MEDS: LACTOBACILLUS ACIDOPHILUS TAB PO SCH ×3 (09:00→18:00)
--- NOTE | 2016-09-11 10:00 | RADRPT ---
EXAM DATE/TIME: 09/11/2016 09:16 [facility] COMPARISON: CHEST SINGLE AP, August 29, 2016, 8:24. INDICATIONS : Fever, short of breath, no pain MEDICAL HISTORY : fistula, abdominal wall abcess SURGICAL HISTORY : Umbilical hernia repair. colon resection, colostomy ENCOUNTER: Subsequent ACUITY: 1 month PAIN SCORE: 0/10 LOCATION: Bilateral chest FINDINGS: A single view of the chest demonstrates the lungs to be symmetrically aerated without evidence of mas s, infiltrate or effusion. There is a PICC line in place from the left arm with the tip overlying th e SVC. The cardiomediastinal contours are unremarkable. There is a dextrocurvature of the thoracic sp ine. CONCLUSION: No acute disease. Shashi Xiong MD on September 11, 2016 at 9:57 Board Certified Radiologist. This report was verified electronically.
[2016-09-11] MEDS: LACTULOSE SYRUP 20 GM/30 ML CUP PO SCH ×3 (10:48→21:00)
[2016-09-11] MEDS: FUROSEMIDE 20 MG TAB PO SCH (10:49)
[2016-09-11] MEDS: DOCUSATE SODIUM 50 MG/SENNA 8.6 MG TAB PO SCH ×2 (10:49→22:32)
[2016-09-11] MEDS: FAMOTIDINE 20 MG TAB PO SCH ×2 (10:49→22:32)
[2016-09-11] MEDS: DULoxetine HCl DR 30 MG CAP PO SCH (10:50)
[2016-09-11 11:47] LABS: BLOOD, URINE SMALL (NEG); GLUCOSE,URINE NEG (NEG); HYALINE CAST, URINE 4 /lpf (RARE); KETONE, URINE NEG (NEG); NITRITE,URINE NEG (NEG); SQUAMOUS EPITHELIAL CELL URINE 1 /hpf (0-5); TRANSITIONAL EPI CELLS, URINE <1 /hpf; URINE COLOR YELLOW (YELLW/STRAW)
[2016-09-11 11:49] LABS: COMMENT (UR) CULT NOT INDICATED; CULTURE IF INDICATED CULT NOT INDICATED
[2016-09-11 12:00] VITALS: BP 107/57; PULSE 108; RESP 18; TEMP 98.1; O2SAT 96
[2016-09-11] MEDS ORDERED: PILL SPLITTER OTHER PRN (13:45)
--- NOTE | 2016-09-11 13:54 | HHI.FPPN ---
Subjective Remarks Patient does not feel well today, states that she feels "crappy" today. Patient having appropriate volume ostomy contents produced. She self reports foul smelling urine. No fever, chills, n/v. (Mabel Wheeler MD) Objective Vitals Vital Signs Date Time Temp Pulse Resp B/P Pulse Ox O2 Delivery O2 Flow Rate FiO2 09/11/16 08:06 98.0 88 17 114/56 96 09/11/16 01:09 98.5 89 18 98/57 98 09/10/16 22:05 98.5 112 18 102/70 95 09/10/16 16:00 98.3 98 18 108/60 98 I/O 09/10/16 09/10/16 09/10/16 09/11/16 09/11/16 09/11/16 07:00 15:00 23:00 07:00 15:00 23:00 Intake Total 1225 ml 400 ml 1186 ml 576 ml Output Total 800 ml 750 ml 225 ml 175 ml 450 ml Balance 425 ml -350 ml 961 ml 401 ml -450 ml Intake Oral 240 ml 400 ml TPN/PPN 735 ml 1186 ml 576 ml Lipid 250 ml Drainage Total 800 ml 750 ml 225 ml 175 ml 450 ml # Voids 3 3 2 2 # Bowel Movements 0 (Mabel Wheeler MD) Result Diagram: 09/11/1661909/11/1620 Objective Remarks GENERAL: NAD SKIN: Warm and dry. Patient with ostomy bag and wound VAC covering repaired fistula. Faint erythema left lateral abdomen. Peripheral IV and PICC line in place in left arm. HEENT: Normocephalic. Atraumatic. EOMI. No scleral icterus. No injection or drainage. No nasal drainage. Moist mucous membranes. CARDIOVASCULAR: Regular rate and rhythm without murmurs, gallops, or rubs RESPIRATORY: Clear to auscultation bilaterally GASTROINTESTINAL: Abdomen obese. See skin above. Bowel sounds present. MUSCULOSKELETAL: Mild edema of bilateral lower extremities. No calf tenderness. NEURO: Awake and alert. 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 SUPERVISOR LENS GENERATING grossly intact. 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 Discharge Planning Patient cleared by general surgery for discharge. Physical therapy recommends PT rehabilitation. Discharge held at this time until patient stable but she will be dc to [facility] rehab. Patient will be on TPN until 10/01/16. [id number] signed. (Mabel Wheeler MD) Attending Attestation Patient seen and examined. Case reviewed and discussed. Agree with plan of care as discussed with me and documented in the resident note. (Cassy Oliver MD) Problem List: (1) Enterocutaneous fistula Status: Acute Plan: General Surgery consulted, have cleared patient for discharge 07/28: Status post incision and drainage and washout of left abdominal wall, with wound vac placement due to small bowel fistula Wound VAC changes at bedside by wound care team -Pain control with [place] 7.5325 Q4hrs prn pain 610, morphine 2 mg IV q3h prn breakthrough, hold if SBP < 110 or DBP < 60 -Dilaudid when necessary with wound changes -Octreotide 100 g IV every 8 hours (09/06: currently holding as the patient has been declining treatment secondary to constipation) -Repeat blood cultures secondary to fever show no growth -Continue TPN with PICC line to reduce drainage and promote wound healing Imaging 07/28 - Abdomen/Pelvis CT: Diffuse and extensive subcutaneous emphysema around the abdominal wall from patient's right lateral abdominal wall across midline to left lateral abdominal wall. Fluid collection in anterior left abdominal wall suspicious for subcutaneous abscess. Nonspecific edema throughout subcutaneous tissues. No acute intra-abdominal or pelvic pathology. -Chest x-ray repeated on 09/01 - no acute cardiopulmonary abnormality appreciated Prior antibiotics: - Vancomycin, pharm consult (07/28-08/13) - Cefepime 2gm IV q8h (07/28-08/13) - Flagyl 500 mg IV q6h (07/28-08/13) 09/10/2016: Slight elevation in white blood cells. From 10,000-13,000. We'll continue to monitor. Patient at high risk for wound infection. If stable, anticipate discharge on 09/11/2016. 09/11/2016: WBC elevated to 16.3K, trending upward. Patient without vital sign changes. Initiating sepsis workup. CXR with no acute process. UA showing trace leukocytes, in patient with foul smelling urine. UCx ordered. Rocephin 1g IV q24h x 2 ordered. (2) Physical deconditioning Status: Acute Plan: Patient physically deconditioned after staying in bed for extended period of time. Nursing order to get patient out of bed at least 3 times a day as tolerated with assistance -PT recommends PT at rehabilitation. (3) Urinary tract infection Status: Acute Plan: Leukocytosis worsening in patient with UA significant for trace leukocytes. CXR normal. Rocephin Urine culture F/U Blood cx Abx history: Rocephin 08/31-09/01 Ciprofloxacin 08/23-08/31 (4) Anemia Status: Acute Plan: -Currently stable - Continue to monitor - Iron panel significant for anemia of chronic disease - B12 and Folate both elevated (5) Skin rash Status: Resolved Plan: Rash improved - Completed 7 day course of fluconazole on 09/03 Nystatin powder for groin, axilla, area under breasts, and skin folds Clotrimazole cream for back of neck (6) Depression Status: Chronic Plan: -Continue home Cymbalta 30 mg by mouth daily (7) Lower extremity edema Status: Resolved Plan: Resolved Patient with no pitting edema of bilateral lower extremities on exam. - SCDs - 20 mg Lasix po daily, 25 meq potassium (8) Nutrition, metabolism, and development symptoms Status: Acute Plan: Fluids: Hep-Lock IV Electrolytes: Potassium increased from 5.0-5.7. Will hold the potassium bicarbonate. Contacted pharmacy to change formulation of TPN. Nutrition: TPN and regular diet DVT PPX: SCDs and Lovenox; risk of DVT and PE greater than risk for chronic wound bleeding GI PPX: Pepcid (Mabel Wheeler MD) Problem Qualifiers (1) Urinary tract infection: Qualified Code: N30.01 - Acute cystitis with hematuria (2) Anemia: Qualified Code: D64.9 - Anemia, unspecified type Mabel Wheeler MD Sep 11, 2016 13:54 Cassy Oliver MD Sep 13, 2016 17:35
[2016-09-11 16:00] VITALS: BP 106/59; PULSE 103; RESP 17; TEMP 99.9; O2SAT 96
[2016-09-11] MEDS ORDERED: cefTRIAXone INJ 1,000 MG in SODIUM CHLORIDE 0.9% INJ 100 ML IV SCH (16:00)
[2016-09-11] MEDS: ENOXAPARIN SODIUM 40 MG/0.4 ML SYRINGE SQ SCH (16:15)
[2016-09-11] MEDS ORDERED: BISACODYL 10 MG SUPP RECTAL ONE (17:30)
[2016-09-11 20:00] VITALS: BP 119/59; PULSE 108; RESP 18; TEMP 100.2; O2SAT 94
[2016-09-11] MEDS: ACETAMINOPHEN 325 MG TAB PO PRN (21:11)
[2016-09-11] MEDS: PRAMIPEXOLE DIHYDROCHLORIDE 0.25 MG TAB PO SCH (22:32)
[2016-09-11] MEDS: SODIUM ACETATE IV-CENTRAL SCH ×8 (22:33)
[2016-09-11] MEDS: SODIUM CHLORIDE IV-CENTRAL SCH ×8 (22:33)
[2016-09-11] MEDS: [UNRECOGNIZED DRUG - OTHER] IV-CENTRAL SCH ×8 (22:33)
[2016-09-12] VITALS: BP 96/55; PULSE 107; RESP 18; TEMP 99.7; O2SAT 95
[2016-09-12] MEDS: ONDANSETRON HCL 4 MG/2 ML VIAL IV PUSH PRN ×2 (05:02→12:11)
[2016-09-12] MEDS: ACETAMINOPHEN/HYDROcodone 325 MG/7.5 MG TAB PO PRN ×3 (05:03→21:47)
[2016-09-12] MEDS: OCTREOTIDE INJ 100 MCG/ML VIAL IV PUSH SCH ×3 (05:06→21:48)
[2016-09-12] MEDS: ALTEPLASE RECOMBINANT 2 MG VIAL INTRACATH PRN (07:42)
[2016-09-12 08:00] VITALS: BP 101/55; PULSE 90; RESP 16; TEMP 98.2; O2SAT 95
[2016-09-12] MEDS: CLOTRIMAZOLE 1% CREAM 15 GM TOPICAL SCH ×2 (09:00→21:00)
[2016-09-12] MEDS: NYSTATIN 100,000 U/GM PWD 15 GM BTL TOPICAL SCH ×2 (09:00→21:00)
[2016-09-12] MEDS: POLYETHYLENE GLYCOL 17 GM PKG PO SCH (09:00)
[2016-09-12] MEDS: DOCUSATE SODIUM 50 MG/SENNA 8.6 MG TAB PO SCH ×2 (09:36→21:47)
[2016-09-12] MEDS: DULoxetine HCl DR 30 MG CAP PO SCH (09:36)
[2016-09-12] MEDS: FAMOTIDINE 20 MG TAB PO SCH ×2 (09:37→21:47)
[2016-09-12] MEDS: FUROSEMIDE 20 MG TAB PO SCH (09:37)
[2016-09-12] MEDS: LACTULOSE SYRUP 20 GM/30 ML CUP PO SCH ×4 (09:37→21:47)
[2016-09-12] MEDS: LACTOBACILLUS ACIDOPHILUS TAB PO SCH ×3 (09:37→18:00)
[2016-09-12] MEDS: SODIUM CHLORIDE 0.9% FLUSH 5 ML FLUSH IVF SCH ×2 (09:42→21:48)
[2016-09-12] MEDS ORDERED: ACETAMIN 325 MG/BUTALBITAL 50 MG/CAFFEINE 40 MG TAB PO PRN (10:45)
[2016-09-12 11:22] LABS: AUTOMATED NEUTROPHIL # 14.8 TH/MM3 (1.8-7.7); BASOPHIL # 0.1 TH/MM3 (0-0.2); BASOPHIL % 0.3 % (0.0-2.0); EOSINOPHIL % 0.3 % (0.0-4.0); HEMATOCRIT 37.6 % (35.0-46.0); HEMO FLAGS DIFF FINAL; LYMPH % 3.9 % (9.0-44.0); LYMPHOCYTE # 0.6 TH/MM3 (1.0-4.8); MEAN CELL VOLUME 81.7 FL (80.0-100.0); MEAN CORPUSCULAR HEMOGLOBIN 27.2 PG (27.0-34.0); MEAN CORPUSCULAR HGB CONC 33.3 % (32.0-36.0); MONO % 5.6 % (0.0-8.0); NEUT % 89.9 % (16.0-70.0); PLATELET COUNT 407 TH/MM3 (150-450); RED CELL DISTRIBUTION WIDTH 17.2 % (11.6-17.2); WHITE BLOOD COUNT 16.5 TH/MM3 (4.0-11.0)
--- NOTE | 2016-09-12 11:26 | HHI.FPPN ---
Subjective Remarks Patient is complaining of shaking for the past 2 days. She is also complaining of a vague headache. She points to her occipital lobes. She denies any visual changes. She does feel feverish. She is having constant abdominal pain that is unchanged. She denies any dysuria. She has not had a bowel movement in 2 days. She denies any new sputum production, however is noticing the persistent green/yellow/orange sputum. She tells me that she coughed up some blood overnight, the size of a quarter. Chest x-ray yesterday was within normal limits. (Brett Beth MD R2) Objective Vitals Vital Signs Date Time Temp Pulse Resp B/P Pulse Ox O2 Delivery O2 Flow Rate FiO2 09/12/16 08:00 98.2 90 16 101/55 95 09/12/16 00:00 99.7 107 18 96/55 95 09/11/16 20:00 100.2 108 18 119/59 94 09/11/16 16:00 99.9 103 17 106/59 96 09/11/16 12:00 98.1 108 18 107/57 96 I/O 09/11/16 09/11/16 09/11/16 09/12/16 09/12/16 09/12/16 07:00 15:00 23:00 07:00 15:00 23:00 Intake Total 576 ml 575 ml 1827 ml 240 ml Output Total 175 ml 450 ml 80 ml Balance 401 ml 125 ml 1827 ml 160 ml Intake Oral 575 ml 240 ml IV Total 1827 ml TPN/PPN 576 ml Drainage Total 175 ml 450 ml 80 ml # Voids 2 4 2 # Bowel Movements 0 0 (Brett Beth MD R2) Result Diagram: 09/12/16 1004 09/11/16 0620 Objective Remarks GENERAL: NAD SKIN: Warm and dry. Patient with ostomy bag and wound VAC covering repaired fistula. Faint erythema left lateral abdomen. Peripheral IV and PICC line in place in left arm. HEENT: Normocephalic. Atraumatic. EOMI. No scleral icterus. No injection or drainage. No nasal drainage. Moist mucous membranes. CARDIOVASCULAR: Regular rate and rhythm without murmurs, gallops, or rubs RESPIRATORY: Clear to auscultation bilaterally GASTROINTESTINAL: Abdomen obese. See skin above. Bowel sounds present. MUSCULOSKELETAL: Mild edema of bilateral lower extremities. No calf tenderness. NEURO: Awake and alert. 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 ASSOCIATE PROFESSOR OF PSYCHOLOGY grossly intact. 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 Discharge Planning Patient cleared by general surgery for discharge. Physical therapy recommends PT rehabilitation. Discharge held at this time until patient stable but she will be dc to [facility] rehab. Patient will be on TPN until 10/01/16. 3008 signed. (Brett Beth MD R2) Attending Attestation Patient seen and examined. Case reviewed and discussed Agree with plan of care as discussed with me and documented in the resident note. (Cassy Oliver MD) Problem List: (1) Enterocutaneous fistula Status: Acute Plan: General Surgery consulted, have cleared patient for discharge 07/28: Status post incision and drainage and washout of left abdominal wall, with wound vac placement due to small bowel fistula Wound VAC changes at bedside by wound care team -Pain control with [place] 7.5325 Q4hrs prn pain 610, morphine 2 mg IV q3h prn breakthrough, hold if SBP < 110 or DBP < 60 -Dilaudid when necessary with wound changes -Repeat blood cultures secondary to fever show gram-positive cocci in pairs and clusters -Continue TPN with PICC line to reduce drainage and promote wound healing Imaging 07/28 - Abdomen/Pelvis CT: Diffuse and extensive subcutaneous emphysema around the abdominal wall from patient's right lateral abdominal wall across midline to left lateral abdominal wall. Fluid collection in anterior left abdominal wall suspicious for subcutaneous abscess. Nonspecific edema throughout subcutaneous tissues. No acute intra-abdominal or pelvic pathology. -Chest x-ray repeated on 09/01 - no acute cardiopulmonary abnormality appreciated -Repeat CT of abdomen and pelvis with IV contrast today, 09/12 Prior antibiotics: - Vancomycin, pharm consult (07/28-08/13) - Cefepime 2gm IV q8h (07/28-08/13) - Flagyl 500 mg IV q6h (07/28-08/13) -Started on Flagyl 500 mg IV every 6 hours, as well as ciprofloxacin 400 mg every 12 hours (09/12--). 09/10/2016: Slight elevation in white blood cells. From 10,000-13,000. We'll continue to monitor. Patient at high risk for wound infection. If stable, anticipate discharge on 09/11/2016. 09/11/2016: WBC elevated to 16.3K, trending upward. Patient without vital sign changes. Initiating sepsis workup. CXR with no acute process. UA showing trace leukocytes, in patient with foul smelling urine. UCx ordered. Rocephin 1g IV q24h x 2 ordered. 09/12/2016: WBC persistently elevated but stable at 16,000. Mildly increased temperatures of 100.2. UA was negative for infection. Chest x-ray no acute process. Rocephin was switched to the antibiotics above. Blood cultures were noted to be positive for gram-positive cocci in pairs and clusters. (2) Physical deconditioning Status: Acute Plan: Patient physically deconditioned after staying in bed for extended period of time. Nursing order to get patient out of bed at least 3 times a day as tolerated with assistance -PT recommends PT at rehabilitation. (3) Urinary tract infection Status: Resolved Plan: Leukocytosis worsening in patient with UA significant for trace leukocytes. CXR normal. Rocephin Urine culture F/U Blood cx Abx history: Rocephin 08/31-09/01 Ciprofloxacin 08/23-08/31 (4) Anemia Status: Acute Plan: -Currently stable - Continue to monitor - Iron panel significant for anemia of chronic disease - B12 and Folate both elevated (5) Skin rash Status: Resolved Plan: Rash improved - Completed 7 day course of fluconazole on 09/03 Nystatin powder for groin, axilla, area under breasts, and skin folds Clotrimazole cream for back of neck (6) Depression Status: Chronic Plan: -Continue home Cymbalta 30 mg by mouth daily (7) Lower extremity edema Status: Resolved Plan: Resolved Patient with no pitting edema of bilateral lower extremities on exam. - SCDs - 20 mg Lasix po daily, 25 meq potassium (8) Nutrition, metabolism, and development symptoms Status: Acute Plan: Fluids: Hep-Lock IV Electrolytes: Potassium increased from 5.0-5.7. Will hold the potassium bicarbonate. Contacted pharmacy to change formulation of TPN. Nutrition: TPN and regular diet DVT PPX: SCDs and Lovenox; risk of DVT and PE greater than risk for chronic wound bleeding GI PPX: Pepcid (Brett Beth MD R2) Problem Qualifiers (1) Urinary tract infection: Qualified Code: N30.01 - Acute cystitis with hematuria (2) Anemia: (3) Depression: Qualified Code: F33.9 - Recurrent major depressive disorder, remission status unspecified (4) Lower extremity edema: Qualified Code: R60.0 - Bilateral edema of lower extremity Brett Beth MD R2 Sep 12, 2016 11:26 Cassy Oliver MD Sep 17, 2016 10:24
[2016-09-12 11:54] LABS: BICARBONATE 22.5 MEQ/L (21.0-32.0); POTASSIUM 5.4 MEQ/L (3.5-5.1)
[2016-09-12 12:00] VITALS: BP 113/57; PULSE 127; RESP 16; TEMP 98.7; O2SAT 97
[2016-09-12] MEDS ORDERED: SODIUM POLYSTYRENE SULFONATE 30 GM/120 ML ENEMA RECTAL ONE (12:45)
[2016-09-12] MEDS ORDERED: DIATRIZOATE MEGLUM/DIATRIZOATE SOD 9 ML CUP PO ONE (13:15)
[2016-09-12] MEDS: ENOXAPARIN SODIUM 40 MG/0.4 ML SYRINGE SQ SCH (13:45)
[2016-09-12] MEDS ORDERED: SODIUM POLYSTYRENE SULFONATE SUSP 15 GM/60 ML CUP PO ONE (14:30)
[2016-09-12] MEDS ORDERED: CIPROFLOXACIN 400 MG PREMIX 200 ML IV SCH (15:00)
[2016-09-12 16:00] VITALS: BP 108/59; PULSE 109; RESP 16; TEMP 99.6; O2SAT 96
[2016-09-12] MEDS ORDERED: metroNIDAZOLE 500 MG INJ 100 ML IV SCH (16:00)
[2016-09-12] MEDS: SODIUM CHLOR 0.9% 1000 ML INJ 1,000 ML IV SCH (17:10)
[2016-09-12] MEDS ORDERED: Vancomycin Consult Pharmacy XX SCH (17:45)
[2016-09-12] MEDS ORDERED: VANCOMYCIN INJ 1,750 MG in SODIUM CHLORID 0.9% 500 ML INJ 500 ML IV ONE (18:00)
[2016-09-12] MEDS ORDERED: IOHEXOL 350 MG/ML 10 ML VIAL (for RAD DIAG) IV ONE (18:10)
--- NOTE | 2016-09-12 18:29 | RADRPT ---
EXAM DATE/TIME: 09/12/2016 18:05 [facility] COMPARISON: CT ABDOMEN & PELVIS W CONTRAST, July 28, 2016, 9:50. INDICATIONS : Fever. Left lower quadrant pain. IV CONTRAST: 95 cc Omnipaque 350 (iohexol) IV ORAL CONTRAST: Prescribed oral contrast ingested. RADIATION DOSE: 24.10 CTDIvol (mGy) MEDICAL HISTORY : Diverticulosis. SURGICAL HISTORY : Gastric bypass. Colectomy. Unspecified hernia repair. ENCOUNTER: Initial ACUITY: 1 day PAIN SCALE: 8/10 LOCATION: Left lower quadrant TECHNIQUE: Volumetric scanning of the abdomen and pelvis was performed. Using automated exposure control and ad justment of the mA and/or kV according to patient size, radiation dose was kept as low as reasonably achievable to obtain optimal diagnostic quality images. FINDINGS: No pleural or pericardial effusions are seen. The patient has had previous gastric bypass procedure. There is fatty infiltration of the liver. Patient is status post cholecystectomy per the bilateral ki dneys are normal in appearance. Atherosclerotic calcifications of the aorta are noted. Urinary bladde r unremarkable. There is marked diastasis of the rectus musculature and a large ventral hernia contai duc small bowel and large bowel extending to the left of midline. There are no signs of bowel obstru ction. There is no adenopathy or aneurysm. Previously extensive soft tissue emphysema and edema was s een as well as fluid in the subcutaneous tissues of the anterior abdominal wall. This has all resolve d. No inflammatory changes are seen within the abdomen or pelvis. There is no evidence for access. A the lung bases are clear. Osseous structures demonstrate levoscoliosis and moderate degenerative disc disease and facet arthropathy with bilateral L5 spondylolysis. CONCLUSION: 1. No inflammatory changes are seen within the abdomen or pelvis. Scott Pastor MD on September 12, 2016 at 18:24 Board Certified Radiologist. This report was verified electronically.
[2016-09-12 20:00] VITALS: BP 112/54; PULSE 112; RESP 18; TEMP 99; O2SAT 94
[2016-09-12] MEDS: FAT EMULSION 20% INJ 250 ML (Twice weekly over 8 hours) IV-CENTRAL SCH (20:00)
[2016-09-12] MEDS: SODIUM ACETATE IV-CENTRAL SCH ×8 (20:00)
[2016-09-12] MEDS: [UNRECOGNIZED DRUG - OTHER] IV-CENTRAL SCH ×8 (20:00)
[2016-09-12] MEDS: PRAMIPEXOLE DIHYDROCHLORIDE 0.25 MG TAB PO SCH (20:00)
[2016-09-12] MEDS: SODIUM CHLORIDE IV-CENTRAL SCH ×8 (20:00)
[2016-09-12] MEDS: INSULIN DETEMIR 100 UNITS/ML VIAL SQ SCH (21:51)
[2016-09-12 23:41] VITALS: BP 120/64; PULSE 100; RESP 16; TEMP 99.1; O2SAT 94
[2016-09-12] MEDS: ZOLPIDEM TARTRATE 5 MG TAB PO PRN (23:50)
[2016-09-13] MEDS: SODIUM CHLOR 0.9% 1000 ML INJ 1,000 ML IV SCH ×2 (02:25→14:24)
[2016-09-13 04:00] VITALS: BP 86/55; PULSE 108; RESP 20; TEMP 101.3; O2SAT 95
[2016-09-13] MEDS ORDERED: SODIUM CHLORID 0.9% 500 ML INJ 500 ML IV ONE ×2 (04:45→15:45)
--- NOTE | 2016-09-13 05:00 | HHI.FPPN ---
Subjective Remarks Subjective: Residents were paged by patient's nurse with complaints of chest pain. In addition, her blood pressure was low at 86/55. We stopped by to see the patient who informed us that the chest pain started after her PICC line was removed around 10 PM last night. She describes the chest pain as 8/10 and stated that it feels like a bruise. She also complains of a productive cough. Objective: Gen.: Patient lying in bed, not in respiratory distress, holding pressure on her left upper chest Chest: Tender to palpation in the left upper chest, lung sounds clear bilaterally Heart: RRR Assessment: 65-year-old female with new onset chest pain after removal of PICC line, productive cough, and hypotension which may be sepsis related in the setting of gram-positive cocci bacteremia. Plan: -500 mL bolus stat -Stat chest x-ray -Stat EKG - reviewed - shows right bundle branch block, unchanged from previous EKG on admission on August 01, 2016 -Troponin 1 -Blood culture 1 Seen and examined with Dr. Terri Wheeler Objective Vitals Vital Signs Date Time Temp Pulse Resp B/P Pulse Ox O2 Delivery O2 Flow Rate FiO2 09/12/16 23:41 99.1 100 16 120/64 94 09/12/16 20:00 99.0 112 18 112/54 94 09/12/16 16:00 99.6 109 16 108/59 96 09/12/16 12:00 98.7 127 16 113/57 97 09/12/16 08:00 98.2 90 16 101/55 95 I/O 09/12/16 09/12/16 09/12/16 09/13/16 09/13/16 09/13/16 07:00 15:00 23:00 07:00 15:00 23:00 Intake Total 240 ml 120 ml 360 ml Output Total 80 ml 1650 ml Balance 160 ml 120 ml -1290 ml Intake Oral 240 ml 120 ml 360 ml Gastric Drainage Total 1650 ml Drainage Total 80 ml # Voids 2 4 4 # Bowel Movements 0 0 1 Result Diagram: 09/12/16 1004 09/12/16 1004 Objective Remarks GENERAL: NAD SKIN: Warm and dry. Patient with ostomy bag and wound VAC covering repaired fistula. Faint erythema left lateral abdomen. Peripheral IV and PICC line in place in left arm. HEENT: Normocephalic. Atraumatic. EOMI. No scleral icterus. No injection or drainage. No nasal drainage. Moist mucous membranes. CARDIOVASCULAR: Regular rate and rhythm without murmurs, gallops, or rubs RESPIRATORY: Clear to auscultation bilaterally GASTROINTESTINAL: Abdomen obese. See skin above. Bowel sounds present. MUSCULOSKELETAL: Mild edema of bilateral lower extremities. No calf tenderness. NEURO: Awake and alert. 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 [employer] grossly intact. 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 Discharge Planning Patient cleared by general surgery for discharge. Physical therapy recommends PT rehabilitation. Discharge held at this time until patient stable but she will be dc to [facility] rehab. Patient will be on TPN until 10/01/16. [id number] signed. Problem List: (1) Enterocutaneous fistula Status: Acute Plan: General Surgery consulted, have cleared patient for discharge 07/28: Status post incision and drainage and washout of left abdominal wall, with wound vac placement due to small bowel fistula Wound VAC changes at bedside by wound care team -Pain control with [place] 7.5325 Q4hrs prn pain 610, morphine 2 mg IV q3h prn breakthrough, hold if SBP < 110 or DBP < 60 -Dilaudid when necessary with wound changes -Repeat blood cultures secondary to fever show gram-positive cocci in pairs and clusters -Continue TPN with PICC line to reduce drainage and promote wound healing Imaging 07/28 - Abdomen/Pelvis CT: Diffuse and extensive subcutaneous emphysema around the abdominal wall from patient's right lateral abdominal wall across midline to left lateral abdominal wall. Fluid collection in anterior left abdominal wall suspicious for subcutaneous abscess. Nonspecific edema throughout subcutaneous tissues. No acute intra-abdominal or pelvic pathology. -Chest x-ray repeated on 09/01 - no acute cardiopulmonary abnormality appreciated -Repeat CT of abdomen and pelvis with IV contrast today, 09/12 Prior antibiotics: - Vancomycin, pharm consult (07/28-08/13) - Cefepime 2gm IV q8h (07/28-08/13) - Flagyl 500 mg IV q6h (07/28-08/13) -Started on Flagyl 500 mg IV every 6 hours, as well as ciprofloxacin 400 mg every 12 hours (09/12--). 09/10/2016: Slight elevation in white blood cells. From 10,000-13,000. We'll continue to monitor. Patient at high risk for wound infection. If stable, anticipate discharge on 09/11/2016. 09/11/2016: WBC elevated to 16.3K, trending upward. Patient without vital sign changes. Initiating sepsis workup. CXR with no acute process. UA showing trace leukocytes, in patient with foul smelling urine. UCx ordered. Rocephin 1g IV q24h x 2 ordered. 09/12/2016: WBC persistently elevated but stable at 16,000. Mildly increased temperatures of 100.2. UA was negative for infection. Chest x-ray no acute process. Rocephin was switched to the antibiotics above. Blood cultures were noted to be positive for gram-positive cocci in pairs and clusters. (2) Physical deconditioning Status: Acute Plan: Patient physically deconditioned after staying in bed for extended period of time. Nursing order to get patient out of bed at least 3 times a day as tolerated with assistance -PT recommends PT at rehabilitation. (3) Urinary tract infection Status: Acute Plan: Leukocytosis worsening in patient with UA significant for trace leukocytes. CXR normal. Rocephin Urine culture F/U Blood cx Abx history: Rocephin 08/31-09/01 Ciprofloxacin 08/23-08/31 (4) Anemia Status: Acute Plan: -Currently stable - Continue to monitor - Iron panel significant for anemia of chronic disease - B12 and Folate both elevated (5) Skin rash Status: Resolved Plan: Rash improved - Completed 7 day course of fluconazole on 09/03 Nystatin powder for groin, axilla, area under breasts, and skin folds Clotrimazole cream for back of neck (6) Depression Status: Chronic Plan: -Continue home Cymbalta 30 mg by mouth daily (7) Lower extremity edema Status: Resolved Plan: Resolved Patient with no pitting edema of bilateral lower extremities on exam. - SCDs - 20 mg Lasix po daily, 25 meq potassium (8) Nutrition, metabolism, and development symptoms Status: Acute Plan: Fluids: Hep-Lock IV Electrolytes: Potassium increased from 5.0-5.7. Will hold the potassium bicarbonate. Contacted pharmacy to change formulation of TPN. Nutrition: TPN and regular diet DVT PPX: SCDs and Lovenox; risk of DVT and PE greater than risk for chronic wound bleeding GI PPX: Pepcid Problem Qualifiers (1) Urinary tract infection: Qualified Code: N30.01 - Acute cystitis with hematuria (2) Anemia: Qualified Code: D64.9 - Anemia, unspecified type Estefani Willett MD R1 Sep 13, 2016 05:00
[2016-09-13] MEDS: ACETAMINOPHEN 325 MG TAB PO PRN ×2 (05:36→12:43)
[2016-09-13] MEDS: OCTREOTIDE INJ 100 MCG/ML VIAL IV PUSH SCH ×3 (05:36→22:00)
[2016-09-13] MEDS ORDERED: VANCOMYCIN INJ 1,250 MG in SODIUM CHLOR 0.9% 250 ML INJ 250 ML IV SCH (06:00)
--- NOTE | 2016-09-13 06:13 | RADRPT ---
EXAM DATE/TIME: 09/13/2016 05:15 [facility] COMPARISON: CHEST SINGLE AP, September 11, 2016, 9:16. INDICATIONS : Angina MEDICAL HISTORY : fistula, abdominal wall abcess SURGICAL HISTORY : Umbilical hernia repair. colon resection, colostomy ENCOUNTER: Subsequent ACUITY: 1 month PAIN SCORE: 8/10 LOCATION: Bilateral chest FINDINGS: Single AP view of the chest. Mild central pulmonary vasculature prominence. Cardiomediastinal silhoue tte unchanged. No evidence of pleural effusion or pneumothorax. CONCLUSION: Mild central pulmonary vascular congestion. Chintan Donovan MD on September 13, 2016 at 6:11 Board Certified Radiologist. This report was verified electronically.
[2016-09-13 08:00] VITALS: BP 93/53; PULSE 97; RESP 16; TEMP 98.5; O2SAT 96
[2016-09-13] MEDS: SODIUM CHLORIDE 0.9% FLUSH 5 ML FLUSH IVF SCH ×2 (09:00→21:00)
[2016-09-13] MEDS: POLYETHYLENE GLYCOL 17 GM PKG PO SCH (09:00)
[2016-09-13 09:45] LABS: BASOPHIL # 0.1 TH/MM3 (0-0.2); BASOPHIL % 0.6 % (0.0-2.0); EOSINOPHIL # 0.2 TH/MM3 (0-0.4); EOSINOPHIL % 1.2 % (0.0-4.0); HEMATOCRIT 37.6 % (35.0-46.0); LYMPH % 7.1 % (9.0-44.0); MEAN CELL VOLUME 85.7 FL (80.0-100.0); MEAN CORPUSCULAR HEMOGLOBIN 26.9 PG (27.0-34.0); MEAN CORPUSCULAR HGB CONC 31.3 % (32.0-36.0); MONO % 6.8 % (0.0-8.0); NEUT % 84.3 % (16.0-70.0); PLATELET COUNT 287 TH/MM3 (150-450); RED BLOOD COUNT 4.39 MIL/MM3 (4.00-5.30); WHITE BLOOD COUNT 14.3 TH/MM3 (4.0-11.0)
[2016-09-13] MEDS: LACTULOSE SYRUP 20 GM/30 ML CUP PO SCH ×4 (09:50→21:00)
[2016-09-13] MEDS: LACTOBACILLUS ACIDOPHILUS TAB PO SCH ×3 (09:51→17:00)
[2016-09-13] MEDS: FAMOTIDINE 20 MG TAB PO SCH (09:51)
[2016-09-13] MEDS: INSULIN DETEMIR 100 UNITS/ML VIAL SQ SCH ×2 (09:51→21:00)
[2016-09-13] MEDS: DOCUSATE SODIUM 50 MG/SENNA 8.6 MG TAB PO SCH ×2 (09:52→23:05)
[2016-09-13] MEDS: DULoxetine HCl DR 30 MG CAP PO SCH (09:52)
[2016-09-13] MEDS: FUROSEMIDE 20 MG TAB PO SCH (09:52)
[2016-09-13] MEDS: CLOTRIMAZOLE 1% CREAM 15 GM TOPICAL SCH ×2 (09:57→21:00)
[2016-09-13 09:58] LABS: ANION GAP 13 MEQ/L (5-15); AST (GOT) 25 U/L (15-37); BICARBONATE 18.8 MEQ/L (21.0-32.0); BLOOD UREA NITROGEN 66 MG/DL (7-18); CHLORIDE 98 MEQ/L (98-107); GLOMERULAR FILTRATION RATE 44 ML/MIN (>89); SODIUM (NA) 130 MEQ/L (136-145)
[2016-09-13] MEDS: NYSTATIN 100,000 U/GM PWD 15 GM BTL TOPICAL SCH ×2 (09:58→21:00)
[2016-09-13 10:02] LABS: ALKALINE PHOSPHATASE 305 U/L (45-117); ALT (GPT) 44 U/L (10-53); TOTAL BILIRUBIN ADULT 0.8 MG/DL (0.2-1.0)
[2016-09-13 10:04] LABS: HEMO FLAGS AUTO DIFF
[2016-09-13 10:06] LABS: PLATELET ESTIMATE SMEAR NORMAL (NORMAL); PLATELET MORPHOLOGY CLUMPED (NORMAL); SCAN/DIFF AUTO DIFF CONFIRMED
--- NOTE | 2016-09-13 10:22 | HHI.FPPN ---
Subjective Remarks Patient states she feels much better this morning. PICC line was removed at approximately 10 PM last night. Blood cultures were drawn overnight due to patient reporting some chest discomfort at PICC line site. At that time BP was 86/55. A 500 mL bolus was given at that time. EKG and troponin was collected, EKG showing no significant change from prior and troponin was less than 0.02. She does have a temperature of 101.3F this morning but denies feeling any fevers, chills, nausea, vomiting, shortness of breath. Her abdomen is framing machine tender in the lower quadrant and she does note that her ostomy site is leaking again. She ate some yogurt and jelly. TPN has been discontinued given PICC line removed. (Norma Wheeler MD R1) Objective Vitals Vital Signs Date Time Temp Pulse Resp B/P Pulse Ox O2 Delivery O2 Flow Rate FiO2 09/13/16 08:00 98.5 97 16 93/53 96 09/13/16 04:00 101.3 108 20 86/55 95 09/12/16 23:41 99.1 100 16 120/64 94 09/12/16 20:00 99.0 112 18 112/54 94 09/12/16 16:00 99.6 109 16 108/59 96 09/12/16 12:00 98.7 127 16 113/57 97 I/O 09/12/16 09/12/16 09/12/16 09/13/16 09/13/16 09/13/16 07:00 15:00 23:00 07:00 15:00 23:00 Intake Total 240 ml 120 ml 1573 ml 783 ml Output Total 80 ml 2550 ml 400 ml Balance 160 ml 120 ml -977 ml 383 ml Intake Oral 240 ml 120 ml 360 ml 120 ml IV Total 680 ml 663 ml TPN/PPN 533 ml Gastric Drainage Total 1650 ml Drainage Total 80 ml 900 ml 400 ml # Voids 2 4 4 3 # Bowel Movements 0 0 1 1 (Norma Wheeler MD R1) Result Diagram: 09/13/1692409/13/16924 Imaging Last Impressions Chest X-Ray 09/13/16 0000 Signed Impressions: Service Date/Time: August 05:15 - CONCLUSION: Mild central pulmonary vascular congestion. Chintan Donovan MD CT Angiography 09/13/16 0000 Signed Impressions: Service Date/Time: August 17:11 - CONCLUSION: Small segmental pulmonary emboli in the left lower lobe. No evidence of main pulmonary artery or lobar pulmonary emboli. Small patchy areas of airspace disease without evidence of segmental or lobar consolidation. Dae Herrera MD Abdomen/Pelvis CT 09/12/16 1234 Signed Impressions: Service Date/Time: Monday, September 12, 2016 18:05 - CONCLUSION: 1. No inflammatory changes are seen within the abdomen or pelvis. Scott Pastor MD Abdomen X-Ray 09/06/16 0000 Signed Impressions: Service Date/Time: August 15:49 - CONCLUSION: 1. Nonspecific bowel gas pattern without evidence for obstruction or free air. Adrian Rendon MD Soft Tissue Ultrasound 08/31/16 0000 Signed Impressions: Service Date/Time: Wednesday, August 31, 2016 21:56 - CONCLUSION: Negative Shashi Mera MD Objective Remarks GENERAL: Patient is obese female in NAD lying in bed. SKIN: Warm and dry. Patient with ostomy bag and wound VAC covering repaired fistula. Faint erythema left lateral abdomen. Peripheral IV and PICC line in place in left arm. HEENT: Normocephalic. Atraumatic. EOMI. No scleral icterus. No injection or drainage. No nasal drainage. Moist mucous membranes. CARDIOVASCULAR: Regular rate and rhythm without murmurs, gallops, or rubs RESPIRATORY: Clear to auscultation bilaterally without crackles or wheeze. GASTROINTESTINAL: Abdomen obese. See skin above. Bowel sounds present and normal. MUSCULOSKELETAL: Mild edema of bilateral lower extremities. No calf tenderness. NEURO: Awake and alert. 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 CERTIFIED PHARMACIST ASSISTANT grossly intact. Medications and IVs Inpatient Medications Acetaminophen (Ofirmev Inj) 1,000 mg Q6H IV Last administered on 09/08/16 05: 44; Start 09/05/16 at 17:30; Stop 09/08/16 at 08:02; Status DC Acetaminophen 650 mg 650 mg Q6HR PRN PO TEMP>101F, PAIN 1-10, HEADACHE Last administered on 09/13/16 12:43; Start 08/30/16 at 14:30 Acetaminophen/ Butalbital/ Caffeine (Fioricet 325-50-40) 1 tab Q6H PRN PO HEADACHE Last administered on 09/12/16 14:01; Start 09/12/16 at 10:45 Acetaminophen/ Hydrocodone Bitart ([place] 7.5-325 Mg) 1 tab Q4H PRN PO PAIN SCALE 6 TO 10 Last administered on 09/13/16 15:05; Start 07/30/16 at 11:00 Alteplase, Recombinant (Cathflo Activase Inj) 2 mg Q2H PRN INTRACATH OCCLUDED CATHETER Last administered on 09/12/16 07:42; Start 09/03/16 at 07:45 Bisacodyl (Dulcolax Supp) 10 mg ONCE ONCE RECTAL ; Start 09/11/16 at 17:30; Stop 09/11/16 at 17:31; Status DC Calcium Carbonate (Tums Chew) 500 mg ONCE ONCE CHEW Last administered on 02:26; Start 07/29/16 at 01:00; Stop 07/29/16 at 01:01; Status DC Cefepime HCl 2000 mg/Sodium Chloride 100 ml @ 200 mls/hr Q8H IV Last administered on 08/13/16 14:31; Start 07/28/16 at 14:00; Stop 08/13/16 at 15:03 ; Status DC Ceftriaxone Sodium 1000 mg/ Sodium Chloride 100 ml @ 200 mls/hr Q24H IV Last administered on 09/11/16 16:15; Start 09/11/16 at 16:00; Stop 09/12/16 at 14:23 ; Status DC Ceftriaxone Sodium/Sodium Chloride (Rocephin Inj/NS Inj) 100 ml @ 200 mls/hr Q24H IV Last administered on 08/31/16 16:28; Start 08/31/16 at 17:00; Stop at 16:24; Status DC Chlorhexidine Gluconate (Chlorhexidine 2% Cloth) 3 pack UNSCH PRN TOP HYGIENIC CARE; Start 07/28/16 at 23:45; Stop 08/02/16 at 23:47; Status DC Ciprofloxacin/ Dextrose 200 ml @ 200 mls/hr Q12H IV ; Start 09/12/16 at 15:00; Stop 09/12/16 at 17:14; Status DC Ciprofloxacin/ Dextrose (Cipro 400 Mg Premix) 200 ml @ 200 mls/hr Q12H IV Last administered on 08/31/16 11:56; Start 08/23/16 at 14:00; Stop 08/31/16 at 15 :18; Status DC Clotrimazole (Lotrimin 1% Cream) 1 applic Q12HR TOPICAL Last administered on 09:57; Start 08/22/16 at 15:00 Diatrizoate Meglum/ Diatrizoate Sod 18 ml 18 ml ONCE ONCE PO Last administered on 09/12/16 13:45; Start 09/12/16 at 13:15; Stop 09/12/16 at 13:16 ; Status DC Diphenhydramine HCl (Benadryl 2% Cream) 1 applic TID PRN TOPICAL ITCHING Last administered on 09/03/16 09:15; Start 08/24/16 at 14:00 Duloxetine HCl (Cymbalta Dr) 30 mg DAILY PO Last administered on 09/13/16 09: 52; Start 09/01/16 at 11:00 Enoxaparin Sodium (Lovenox Inj) 40 mg Q24H SQ Last administered on 09/13/16 15 :05; Start 08/13/16 at 15:00 Famotidine (Pepcid) 10 mg Q12HR PO Last administered on 09/13/16 09:51; Start 09/11/16 at 21:00; Stop 09/13/16 at 22:19; Status DC Fat Emulsion Intravenous (Liposyn Iii 20% Inj) 250 ml @ 31.25 mls/ hr SuWe@20 IV-CENTRAL Last administered on 09/09/16 19:59; Start 08/15/16 at 20:00; Stop 09/13/16 at 11:08; Status DC Fluconazole (Diflucan) 200 mg DAILY PO Last administered on 09/03/16 09:14; Start 08/28/16 at 09:00; Stop 09/03/16 at 14:01; Status DC Furosemide (Lasix) 20 mg DAILY PO Last administered on 09/13/16 09:52; Start 08/05/16 at 09:00 Furosemide 20 mg 20 mg ONCE ONCE IV PUSH Last administered on 08/02/16 16:57; Start 08/02/16 at 16:30; Stop 08/02/16 at 16:31; Status DC Glycerin (Glycerin Adult Supp) 2 gm BID PRN RECTAL CONSTIPATION; Start at 11:00; Status Hold Heparin Sodium (Porcine) (Heparin Central Flush) See Protocol UNSCH PRN IVF SEE PROTOCOL TABLE Last administered on 09/05/16 03:03; Start 08/15/16 at 14:15 Heparin Sodium (Porcine) (Heparin Inj) 5,000 units UNSCH PRN IV APTT LESS THAN 25; Start 09/14/16 at 00:15 Heparin Sodium (Porcine) 2500 units 2,500 units UNSCH PRN IV APTT 25 TO 39; Start 09/14/16 at 00:15 Heparin Sodium/ Dextrose (Heparin-D5W Inj) 250 ml @ 0 mls/hr TITRATE IV ; Start 09/13/16 at 18:15; Status Hold Hydromorphone HCl (Dilaudid Pf Inj) 1 mg MoWeFr PRN IV BREAKTHRU PAIN; Start at 10:30 Insulin Detemir 5 units 5 units Q12HR SQ Last administered on 09/13/16 09:51; Start 09/12/16 at 21:00 IV Flush (NS Flush) See Protocol UNSCH PRN IVF SEE PROTOCOL TABLE; Start at 14:15 IV Flush See Protocol UNSCH PRN IVF SEE PROTOCOL TABLE Last administered on 13:47; Start 08/15/16 at 14:15 Lactated Ringer's (Lr 1000 ml Inj) 1,000 ml @ 50 mls/hr Q20H IV Last administered on 08/08/16 08:16; Start 08/03/16 at 00:00; Stop 08/08/16 at 10:29; Status DC Lactobacillus Acidophilus (Lactinex) 1 tab TID PO Last administered on 17:00; Start 08/13/16 at 18:00 Lactulose (Lactulose Liq) 30 ml QID PO Last administered on 09/13/16 17:00; Start 09/11/16 at 18:00 Levofloxacin/ Dextrose (Levaquin 750 Mg Premix Inj) 150 ml @ 100 mls/hr ONCE ONCE IV Last administered on 07/28/16 18:14; Start 07/28/16 at 12:30; Stop at 13:59; Status DC Lidocaine/ Epinephrine 10 ml 10 ml ONCE ONCE INFIL ; Start 07/28/16 at 12:15; Stop 07/28/16 at 12:16; Status DC Magnesium Hydroxide (Milk Of Wojciech Liq) 30 ml DAILY PO Last administered on 09/05/16 17:24; Start 09/05/16 at 14:45; Stop 09/08/16 at 11:59; Status DC Metronidazole 100 ml @ 100 mls/hr Q6H IV ; Start 09/12/16 at 16:00; Stop at 17:14; Status DC Metronidazole (Flagyl 500 Mg Inj) 100 ml @ 100 mls/hr Q6H IV Last administered on 08/13/16 14:31; Start 07/28/16 at 14:00; Stop 08/13/16 at 15:04 ; Status DC Miconazole Nitrate (Monistat 7 Vag Cream) 1 appl HS VAGINAL Last administered on 08/06/16 23:05; Start 08/02/16 at 21:00; Stop 08/09/16 at 20:59; Status DC Miscellaneous Information SPECIFIC LAB TO BE THIAGO... ONCE ONCE XX ; Start at 05:45; Stop 09/16/16 at 05:46 Miscellaneous Information (Post-op Orders (for Pharmacy)) STAT ONCE XX ; Start 07/29/16 at 12:15; Stop 07/29/16 at 12:32; Status DC Miscellaneous 1 ea 1 ea UNSCH PRN OTHER SEE LABEL COMMENTS; Start 09/11/16 at 13:45 Morphine Sulfate (Morphine Inj) 2 mg Q3H PRN IV PUSH BREAKTHROUGH PAIN Last administered on 08/05/16 02:35; Start 07/30/16 at 11:00 Morphine Sulfate 4 mg 4 mg Q4HR PRN IV PUSH PAIN SCALE 6 TO 10 Last administered on 07/30/16 04:18; Start 07/28/16 at 13:45; Stop 07/30/16 at 10:36 ; Status DC Multi-Ingredient Ointment (Eucerin Cream) 1 applic Q6H PRN TOPICAL ITCHING Last administered on 09/03/16 09:14; Start 08/24/16 at 14:00 Multivitamins 10 ml/Folic Acid 1 mg/Amino Acids/ Electrolytes/ Dextrose 2,010.2 ml @ 80 mls/hr Q24H IV-CENTRAL Last administered on 09/10/16 20:00; Start at 20:00; Stop 09/11/16 at 14:53; Status DC Naloxone HCl 0.4 mg 0.4 mg UNSCH PRN IV SEE LABEL COMMENTS; Start 07/28/16 at 13:00 Nystatin 1 applic 1 applic Q12HR TOPICAL Last administered on 09/13/16 09:58; Start 08/22/16 at 15:00 Octreotide Acetate (SandoSTATIN INJ) 100 mcg Q8HR IV PUSH Last administered on 09/12/16 13:44; Start 08/23/16 at 22:00 Ondansetron HCl (Zofran Inj) 4 mg Q6HR PRN IV PUSH NAUSEA OR VOMITING Last administered on 09/12/16 12:11; Start 08/28/16 at 16:00 Pantoprazole Sodium (Protonix Inj) 40 mg Q24H IV PUSH Last administered on 08/13 10:30; Start 07/30/16 at 12:00; Stop 08/14/16 at 07:38; Status DC Pantoprazole Sodium (Protonix) 40 mg BID PO Last administered on 09/13/16 23: 05; Start 09/13/16 at 22:30 Pharmacy Profile Note ml @ 0 mls/hr UNSCH XX ; Start 09/12/16 at 17:45 Polyethylene Glycol (Miralax) 17 gm DAILY PO ; Start 09/08/16 at 12:00 Potassium Bicarbonate (Effer-K Eff) 25 meq DAILY PO Last administered on 08:07; Start 08/06/16 at 21:00; Stop 09/10/16 at 10:36; Status DC Pramipexole Dihydrochloride (Mirapex) 0.5 mg HS@2000 PO Last administered on 23:05; Start 08/03/16 at 20:00 Senna/Docusate Sodium (Annette-Colace) 2 tab BID PO Last administered on 23:05; Start 09/08/16 at 21:00 Sodium Polystyrene Sulfonate (Kayexalate Enema) 30 gm ONCE ONCE RECTAL Last administered on 09/12/16 12:45; Start 09/12/16 at 12:45; Stop 09/12/16 at 12:49 ; Status DC Sodium Polystyrene Sulfonate (Kayexalate Liq) 15 gm ONCE ONCE PO Last administered on 09/12/16 17:10; Start 09/12/16 at 14:30; Stop 09/12/16 at 14:31 ; Status DC Sodium Chloride (NS 1000 ml Inj) 1,000 ml @ 84 mls/hr [id number] IV Last administered on 09/14/16 02:54; Start 09/12/16 at 14:30 Sodium Chloride (NS 250 ml Inj) 250 ml @ 15 mls/hr ONCE ONCE IV Last administered on 07/28/16 23:47; Start 07/28/16 at 22:15; Stop 07/29/16 at 14:54 ; Status DC Sodium Chloride (NS 500 ml Inj) 500 ml @ 500 mls/hr BOLUS ONCE IV Last administered on 09/13/16 17:01; Start 09/13/16 at 15:45; Stop 09/13/16 at 16:44 ; Status DC Sodium Chloride/ Sodium Acetate/ Sodium Phosphate/ Magnesium Chloride/Calcium Chloride/ Multivitamins/ Folic Acid/Amino Acids/Dextrose (Sodium Chloride 23.4% Inj/Sodium Acetate Inj/ Sodium Phosphate Inj/Magnesium Chloride Inj/ Calcium Chloride Inj/Mvi-12 Inj/ Folvite Inj/ Clinimix 11/22) 2,064.1437 ml @ 80 mls/hr Q24H IV-CENTRAL Last administered on 09/11/16 22:33; Start 09/11/16 at 20:00; Stop 09/13/16 at 11:08; Status DC Vancomycin HCl 1000 mg/Sodium Chloride 250 ml @ 250 mls/hr Q24H IV ; Start at 15:00; Stop 07/28/16 at 16:46; Status DC Vancomycin HCl 1250 mg/Sodium Chloride 262.5 ml @ 262.5 mls/ hr Q12H IV Last administered on 09/13/16 06:50; Start 09/13/16 at 06:00; Stop 09/13/16 at 11:45 ; Status DC Vancomycin HCl 1500 mg/Sodium Chloride 515 ml @ 257.5 mls/ hr Q18H IV Last administered on 07/31/16 00:36; Start 07/28/16 at 18:00; Stop 07/31/16 at 11:49 ; Status DC Vancomycin HCl 1750 mg/Sodium Chloride 517.5 ml @ 250 mls/hr ONCE ONCE IV Last administered on 09/12/16 18:00; Start 09/12/16 at 18:00; Stop 09/12/16 at 20:04; Status DC Vancomycin HCl/ Sodium Chloride (Vancomycin Inj/ NS 500 ml Inj) 517.5 ml @ 258.75 mls/ hr Q24H IV Last administered on 09/14/16 05:43; Start 09/14/16 at 06:00 Zolpidem Tartrate (Ambien) 5 mg HS PRN PO INSOMNIA Last administered on 23:50; Start 07/30/16 at 21:00 (Norma Wheeler MD R1) Urinary Catheter: No (Norma Wheeler MD R1) Vascular Central Line Catheter: No (Norma Wheeler MD R1) A/P Assessment and Plan 65-year-old female who recently had exploration in [place] with 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 Discharge Planning Patient cleared by general surgery for discharge. Physical therapy recommends PT rehabilitation. Discharge held at this time until patient stable but she will be dc to [facility] rehab. Patient will be on TPN until 10/01/16. 3008 signed. (Norma Wheeler MD R1) Attending Attestation Patient seen and examined. Case reviewed and discussed Agree with plan of care as discussed with me and documented in the resident note. Patient with persistent chest pain. Time of onset following removal of PICC line. Will obtain CTA to r/o PE. Will initiate anti-coagulation if (+). (Cassy Oliver MD) Problem List: (1) Enterocutaneous fistula Status: Acute Plan: General Surgery consulted, have cleared patient for discharge 07/28: Status post incision and drainage and washout of left abdominal wall, with wound vac placement due to small bowel fistula Wound VAC changes at bedside by wound care team -Pain control with [place] 7.5325 Q4hrs prn pain 610, morphine 2 mg IV q3h prn breakthrough, hold if SBP < 110 or DBP < 60 -Dilaudid when necessary with wound changes -Repeat blood cultures secondary to fever show gram-positive cocci in pairs and clusters -Continue TPN with PICC line to reduce drainage and promote wound healing Imaging 07/28 - Abdomen/Pelvis CT: Diffuse and extensive subcutaneous emphysema around the abdominal wall from patient's right lateral abdominal wall across midline to left lateral abdominal wall. Fluid collection in anterior left abdominal wall suspicious for subcutaneous abscess. Nonspecific edema throughout subcutaneous tissues. No acute intra-abdominal or pelvic pathology. -Chest x-ray repeated on 09/01 - no acute cardiopulmonary abnormality appreciated -Repeat CT of abdomen and pelvis with IV contrast 09/12 showing overall improvement and no acute changes Prior antibiotics: - Vancomycin, pharm consult (07/28-08/13) - Cefepime 2gm IV q8h (07/28-08/13) - Flagyl 500 mg IV q6h (07/28-08/13) -Started on Flagyl 500 mg IV every 6 hours, as well as ciprofloxacin 400 mg every 12 hours (09/12--). 09/10/2016: Slight elevation in white blood cells. From 10,000-13,000. We'll continue to monitor. Patient at high risk for wound infection. If stable, anticipate discharge on 09/11/2016. 09/11/2016: WBC elevated to 16.3K, trending upward. Patient without vital sign changes. Initiating sepsis workup. CXR with no acute process. UA showing trace leukocytes, in patient with foul smelling urine. UCx ordered. Rocephin 1g IV q24h x 2 ordered. 09/12/2016: WBC persistently elevated but stable at 16,000. Mildly increased temperatures of 100.2. UA was negative for infection. Chest x-ray no acute process. Rocephin was switched to the antibiotics above. Blood cultures were noted to be positive for gram-positive cocci in pairs and clusters. 09/13/16: patient improved symptomatically, but tachycardia and fever noted today. Will obtain CTA and echocardiogram to rule out PE/cardiac dyskinesis (2) Physical deconditioning Status: Acute Plan: Patient physically deconditioned after staying in bed for extended period of time. Nursing order to get patient out of bed at least 3 times a day as tolerated with assistance -PT recommends PT at rehabilitation. (3) Urinary tract infection Status: Resolved Plan: Leukocytosis worsening in patient with UA significant for trace leukocytes. CXR normal. Rocephin given x 1, now on Vanc for gram + cocci in blood Urine culture F/U Blood cx Abx history: Rocephin 08/31-09/01 Ciprofloxacin 08/23-08/31 Vanc 09/11-present (4) Anemia Status: Acute Plan: -Currently stable - Continue to monitor - Iron panel significant for anemia of chronic disease - B12 and Folate both elevated (5) Skin rash Status: Resolved Plan: Rash improved - Completed 7 day course of fluconazole on 09/03 Nystatin powder for groin, axilla, area under breasts, and skin folds Clotrimazole cream for back of neck (6) Depression Status: Chronic Plan: -Continue home Cymbalta 30 mg by mouth daily (7) Lower extremity edema Status: Resolved Plan: Resolved Patient with no pitting edema of bilateral lower extremities on exam. - SCDs - 20 mg Lasix po daily, 25 meq potassium (8) Nutrition, metabolism, and development symptoms Status: Acute Plan: Fluids: Hep-Lock IV Electrolytes: Potassium increased from 5.0-5.7. Will hold the potassium bicarbonate. Contacted pharmacy to change formulation of TPN. Nutrition: TPN and regular diet DVT PPX: SCDs and Lovenox; risk of DVT and PE greater than risk for chronic wound bleeding GI PPX: Pepcid (Norma Wheeler MD R1) Problem Qualifiers (1) Urinary tract infection: Qualified Code: N30.01 - Acute cystitis with hematuria (2) Anemia: (3) Depression: Qualified Code: F33.9 - Recurrent major depressive disorder, remission status unspecified (4) Lower extremity edema: Qualified Code: R60.0 - Bilateral edema of lower extremity Norma Wheeler MD R1 Sep 13, 2016 10:22 Cassy Oliver MD Sep 17, 2016 10:23
[2016-09-13 12:00] VITALS: BP 103/57; PULSE 103; RESP 16; TEMP 99.1; O2SAT 97
--- NOTE | 2016-09-13 13:49 | EKG ---
Date Performed: 09/13/2016 Time Performed: 05:05:50 PTAGE: 65 years EKG: Sinus tachycardia. Right bundle branch block Inferior infarct - age undetermined Low QRS vo ltages in precordial leads Abnormal ECG PREVIOUS TRACING : 08/01/2016 05.38 DOCTOR: Vance Wise Interpretating Date/Time 09/13/2016 13:47:00
--- NOTE | 2016-09-13 14:52 | PD.ID.CON ---
History of Present Illness Service ID Consult Requested By Dr Beth Reason for Consult bacteremia Primary Care Physician Navin Bonner M.D. Diagnoses: History of Present Illness 65 yo female with multiple abdominal surgeries since 2001 presented 6 wks ago with LLQ abdominal abscess which developped after abdominal sx in [place] She subsequently developped enterocutaneous fistulas and underwent several surgeries since admission, including I+Ds and VAC placment She has PICC line about 4 weeks and has been having intermittent fevers. She spiked yday and her blood cultures are positibve for GPC in pairs and clusters Her PICC line was removed andshe was started in vancomycin Review of Systems Except as stated in HPI: all other systems reviewed are Neg Past Family Social History Allergies: Coded Allergies: Penicillin (Verified Allergy, Severe, rash, 07/28/16) Past Medical History DM Morbid obesity HTN Bowel obstruction Diverticulosis Seizure SLE Past Surgical History Abdominal absess s/p colostomy 2000 with colostomy takedown 2001 Gastric bypass 2004, multiple hernia repairs, knee surgery 2002 Open cholecystectomy and incisional hernia repair with Dr. Velez (October 02) 10/04/15 ex lap MALINA, abd wall reconstruction, old mesh removal Active Ordered Medications Medications where reviewed in EMR Antibiotics Include: vancomycin Family History Non-Contributory. Social History remote Tobacco. social ETOH. No Illicit Drugs. lives with her Physical Exam Vital Signs Vital Signs Date Time Temp Pulse Resp B/P Pulse Ox O2 Delivery O2 Flow Rate FiO2 09/13/16 12:00 99.1 103 16 103/57 97 09/13/16 08:00 98.5 97 16 93/53 96 09/13/16 04:00 101.3 108 20 86/55 95 09/12/16 23:41 99.1 100 16 120/64 94 09/12/16 20:00 99.0 112 18 112/54 94 09/12/16 16:00 99.6 109 16 108/59 96 Physical Exam CONSTITUTIONAL/GENERAL: This is a morbidly obese female patient, in no apparent distress. TUBES/LINES/DRAINS: SKIN: No jaundice, rashes, or lesions. Skin temperature appropriate. Not diaphoretic. HEAD: Atraumatic. Normocephalic. EYES: Pupils equal and round and reactive. Extraocular motions intact. No scleral icterus. No injection or drainage. Fundi not examined. ENT: Hearing grossly normal. Nose without bleeding or purulent drainage. Throat without visible erythema, exudates, masses, or lesions. NECK: Trachea midline. Supple, nontender. CARDIOVASCULAR: Regular rate and rhythm without murmurs, gallops, or rubs. No JVD. Peripheral pulses symmetric. RESPIRATORY/CHEST: Symmetric, unlabored respirations. Clear to auscultation. Breath sounds equal bilaterally. No wheezes, rales, or rhonchi. GASTROINTESTINAL: Abdomen soft, non-tender, nondistended. No hepato-splenomegaly , or palpable masses. No guarding. Bowel sounds present. ABdomen is obese with multiple scars rom previous surgeries VAC in place in mid abdomen with serosang dc LLQ enterocutaneous fistula seen with very large amount of watery light brown stool LLQ with small amount of brick color erythema and edema GENITOURINARY: Without palpable bladder distension. MUSCULOSKELETAL: Extremities without clubbing, cyanosis, or edema. No joint tenderness or effusion noted. No calf tenderness. No mottling or clubbing. LYMPHATICS: No palpable cervical or supraclavicular adenopathy. NEUROLOGICAL: Awake and alert. Motor and sensory grossly within normal limits. Follows commands. Normal speech . Moves all extremities. PSYCHIATRIC: No obvious anxiety/depression. no apparent hallucinations or other psychotic thought process. Laboratory Laboratory Tests Test 09/13/16 09/13/16 05:17 09:25 Troponin I LESS THAN 0.02 White Blood Count 14.3 Red Blood Count 4.39 Hemoglobin 11.8 Hematocrit 37.6 Mean Corpuscular Volume 85.7 Mean Corpuscular Hemoglobin 26.9 Mean Corpuscular Hemoglobin 31.3 Concent Red Cell Distribution Width 18.0 Platelet Count 287 Mean Platelet Volume 8.0 Neutrophils (%) (Auto) 84.3 Lymphocytes (%) (Auto) 7.1 Monocytes (%) (Auto) 6.8 Eosinophils (%) (Auto) 1.2 Basophils (%) (Auto) 0.6 Neutrophils # (Auto) 12.0 Lymphocytes # (Auto) 1.0 Monocytes # (Auto) 1.0 Eosinophils # (Auto) 0.2 Basophils # (Auto) 0.1 CBC Comment AUTO DIFF Differential Comment AUTO DIFF CONFIRMED Platelet Estimate NORMAL Platelet Morphology Comment CLUMPED Hematology Comments Sodium Level 130 Potassium Level 5.0 Chloride Level 98 Carbon Dioxide Level 18.8 Anion Gap 13 Blood Urea Nitrogen 66 Creatinine 1.23 Estimat Glomerular Filtration 44 Rate Random Glucose 187 Calcium Level 9.3 Total Bilirubin 0.8 Aspartate Amino Transf 25 (AST/SGOT) Alanine Aminotransferase 44 (ALT/SGPT) Alkaline Phosphatase 305 Total Protein 7.1 Albumin 2.1 Date/Time Procedure Status Source Growth 09/13/16 05:17 Aerobic Blood Culture Received Blood Peripheral Pending 09/13/16 05:17 Anaerobic Blood Culture Received Blood Peripheral Pending 09/11/16 12:55 Aerobic Blood Culture - Preliminary Resulted Blood Other Gram Positive Cocci 09/11/16 12:55 Anaerobic Blood Culture - Preliminary Resulted Gram Positive Cocci 09/11/16 11:15 Urine Culture - Final Complete Urine Other 50-100,000 CFU/ML MIXED GRAM POSITIVE... Result Diagram: 09/13/16 0925 09/13/16 0925 Imaging Last Impressions Chest X-Ray 09/13/16 0000 Signed Impressions: Service Date/Time: August 05:15 - CONCLUSION: Mild central pulmonary vascular congestion. Chintan Donovan MD Abdomen/Pelvis CT 09/12/16 1234 Signed Impressions: Service Date/Time: Monday, September 12, 2016 18:05 - CONCLUSION: 1. No inflammatory changes are seen within the abdomen or pelvis. Scott Pastor MD Abdomen X-Ray 09/06/16 0000 Signed Impressions: Service Date/Time: August 15:49 - CONCLUSION: 1. Nonspecific bowel gas pattern without evidence for obstruction or free air. Adrian Rendon MD Soft Tissue Ultrasound 08/31/16 0000 Signed Impressions: Service Date/Time: Wednesday, August 31, 2016 21:56 - CONCLUSION: Negative Shashi Mera MD Assessment and Plan Assessment and Plan High garde staph bacteremia - likely from PICC - removed Abdominal wall abscess on admission, sp tx Enterocutaneous fistual, high output Cont vancomycin furepeat blood clx further rec's will depend on ID , sensitivity of cuplprit organisma and status of repeat blood clx Discussed Condition With Ella Robertson MD Sep 13, 2016 14:51
[2016-09-13] MEDS: ACETAMINOPHEN/HYDROcodone 325 MG/7.5 MG TAB PO PRN (15:05)
[2016-09-13] MEDS: ENOXAPARIN SODIUM 40 MG/0.4 ML SYRINGE SQ SCH (15:05)
[2016-09-13 16:00] VITALS: BP 78/49; PULSE 102; RESP 16; TEMP 97.7; O2SAT 95
[2016-09-13] MEDS ORDERED: IOHEXOL 350 MG/ML 10 ML VIAL (for RAD DIAG) IV ONE (17:24)
--- NOTE | 2016-09-13 17:33 | RADRPT ---
EXAM DATE/TIME: 09/13/2016 17:11 [facility] COMPARISON: No previous studies available for comparison. INDICATIONS : Abdominal abscess; rule out PE. IV CONTRAST: 79 cc Omnipaque 350 (iohexol) IV RADIATION DOSE: 24.27 CTDIvol (mGy) MEDICAL HISTORY : Seizures. Hypertension. SURGICAL HISTORY : Colon resection. Colostomy. ENCOUNTER: Subsequent ACUITY: 1 day PAIN SCALE: 2/10 LOCATION: Bilateral lower chest TECHNIQUE: Volumetric scanning of the chest was performed using a pulmonary embolism protocol MIP images were re constructed. Using automated exposure control and adjustment of the mA and/or kV according to patien t size, radiation dose was kept as low as reasonably achievable to obtain optimal diagnostic quality images. FINDINGS: PULMONARY ARTERIES: Small filling defects are seen in the segmental pulmonary arteries of the left lower lobe. LUNGS: Small patchy peripheral airspace disease is noted there is no significant segmental consolidation. PLEURAE: There is no pleural thickening or pleural effusion. MEDIASTINUM: There is good visualization of the great vessels of the middle mediastinum. No evidence of mediastin al or hilar adenopathy/mass. MUSCULOSKELETAL: Within normal limits for patient age. MISCELLANEOUS: The visualized upper abdominal organs demonstrate no acute abnormality. CONCLUSION: Small segmental pulmonary emboli in the left lower lobe. No evidence of main pulmonary artery or lobar pulmonary emboli. Small patchy areas of airspace disease without evidence of segmental or lobar consolidation. Dae Herrera MD on September 13, 2016 at 17:25 Board Certified Radiologist. This report was verified electronically.
[2016-09-13] MEDS ORDERED: HEPARIN SODIUM - IV 10,000 UNITS/10 ML VIAL IV ONE (18:15)
[2016-09-13] MEDS ORDERED: HEPARIN-D5W INJ 250 ML IV SCH (18:15)
[2016-09-13 20:00] VITALS: BP 105/55; PULSE 111; RESP 17; TEMP 98.8; O2SAT 97
[2016-09-13 21:03] LABS: APTT (PATIENT) 33.2 SEC (24.3-30.1); PROTHROMBIN TIME - PATIENT 11.6 SEC (9.8-11.6)
[2016-09-13 21:57] LABS: HEMATOCRIT 36.4 % (35.0-46.0); MEAN CELL VOLUME 83.7 FL (80.0-100.0); MEAN CORPUSCULAR HEMOGLOBIN 26.5 PG (27.0-34.0); MEAN CORPUSCULAR HGB CONC 31.7 % (32.0-36.0); PLATELET COUNT 284 TH/MM3 (150-450); RED BLOOD COUNT 4.34 MIL/MM3 (4.00-5.30); RED CELL DISTRIBUTION WIDTH 17.3 % (11.6-17.2); REVIEW FLAG FINAL; WHITE BLOOD COUNT 13.6 TH/MM3 (4.0-11.0)
--- NOTE | 2016-09-13 22:28 | HHI.FPPN ---
Addendum to progress note ADDENDUM Reason for addendum: Additonal documentation Additional information Residents were paged about bleeding from Ms Menard's small bowel fistula site. A sample was sent to the lab for hemoccult processing which returned positive. Consequently, we asked the pt's nurse to hold the therapeutic heparin that she was scheduled to receive for a small segmental pulmonary embolus found on CTA today. The plan going forward is as follows: -Hold therapeutic heparin -Discontinue Famotidine and start Protonix 40 mg BID with the first dose to be given now -Hematology consult -NPO at midnight for possible procedure tomorrow -Continue prophylactic Lovenox but stop at least 6 hours before possible procedure in the am -H/H at 0300, approximately 6 hours from first notification Discussed with Dr. Margie Epps, PGY 3 [place]ko,Estefani Sullivan MD R1 Sep 13, 2016 22:28
[2016-09-13] MEDS: PANTOPRAZOLE SOD 40 MG DELAYED RELEASE TAB PO SCH (23:05)
[2016-09-13] MEDS: PRAMIPEXOLE DIHYDROCHLORIDE 0.25 MG TAB PO SCH (23:05)
[2016-09-14] VITALS: BP 99/59; PULSE 111; RESP 17; TEMP 98.7; O2SAT 97
[2016-09-14] MEDS ORDERED: HEPARIN SODIUM - IV 10,000 UNITS/10 ML VIAL IV PRN ×2 (00:15)
[2016-09-14] MEDS: SODIUM CHLOR 0.9% 1000 ML INJ 1,000 ML IV SCH ×2 (02:54→16:40)
[2016-09-14 03:32] LABS: AUTOMATED NEUTROPHIL # 9.4 TH/MM3 (1.8-7.7); BASOPHIL # 0.1 TH/MM3 (0-0.2); BASOPHIL % 0.6 % (0.0-2.0); EOSINOPHIL # 0.2 TH/MM3 (0-0.4); HEMATOCRIT 32.8 % (35.0-46.0); HEMO FLAGS DIFF FINAL; LYMPH % 8.4 % (9.0-44.0); MEAN CELL VOLUME 82.3 FL (80.0-100.0); MEAN CORPUSCULAR HEMOGLOBIN 25.8 PG (27.0-34.0); MEAN CORPUSCULAR HGB CONC 31.4 % (32.0-36.0); PLATELET COUNT 285 TH/MM3 (150-450); RED BLOOD COUNT 3.99 MIL/MM3 (4.00-5.30); RED CELL DISTRIBUTION WIDTH 17.3 % (11.6-17.2); WHITE BLOOD COUNT 11.7 TH/MM3 (4.0-11.0)
[2016-09-14 03:53] LABS: ALKALINE PHOSPHATASE 309 U/L (45-117); ALT (GPT) 42 U/L (10-53); ANION GAP 9 MEQ/L (5-15); AST (GOT) 19 U/L (15-37); BICARBONATE 20.6 MEQ/L (21.0-32.0); BLOOD UREA NITROGEN 46 MG/DL (7-18); CHLORIDE 104 MEQ/L (98-107); GLOMERULAR FILTRATION RATE 73 ML/MIN (>89); POTASSIUM 4.6 MEQ/L (3.5-5.1); SODIUM (NA) 134 MEQ/L (136-145); TOTAL BILIRUBIN ADULT 0.6 MG/DL (0.2-1.0)
[2016-09-14 04:00] VITALS: BP 99/56; PULSE 104; RESP 17; TEMP 99.4; O2SAT 95
[2016-09-14] MEDS: VANCOMYCIN INJ 1,750 MG in SODIUM CHLORID 0.9% 500 ML INJ 500 ML IV SCH (05:43)
[2016-09-14] MEDS: OCTREOTIDE INJ 100 MCG/ML VIAL IV PUSH SCH ×3 (05:43→21:39)
[2016-09-14] MEDS ORDERED: PHARMACY ORDERED LAB XX ONE (05:45)
[2016-09-14 08:00] VITALS: BP 92/51; PULSE 96; RESP 20; TEMP 96.9; O2SAT 94
[2016-09-14] MEDS: INSULIN DETEMIR 100 UNITS/ML VIAL SQ SCH ×2 (08:02→21:00)
--- NOTE | 2016-09-14 08:04 | HHI.FPPN ---
Subjective Remarks Mrs. Navarro is feeling better today. Denies any chest pain, pain in her legs, or hemoptysis. Her fevers and chills have subsided. Her pain in left lower quadrant is still present, and she denies any BMs x 2 days. She is urinating without difficulty. Her vitals are stable and at goal except for some hypotension to 93/53 and tachycardia to 104 bpm. Headaches have resolved. Bleeding from LLQ fistula is improved. Wants to start a diet. (Brett Beth MD R2) Objective Vitals Vital Signs Date Time Temp Pulse Resp B/P Pulse Ox O2 Delivery O2 Flow Rate FiO2 09/14/16 04:00 99.4 104 17 99/56 95 09/14/16 00:00 98.7 111 17 99/59 97 09/13/16 20:00 98.8 111 17 105/55 97 09/13/16 16:00 97.7 102 16 78/49 95 09/13/16 12:00 99.1 103 16 103/57 97 09/13/16 08:00 98.5 97 16 93/53 96 I/O 09/13/16 09/13/16 09/13/16 09/14/16 09/14/16 09/14/16 06:59 14:59 22:59 06:59 14:59 22:59 Intake Total 783 ml 1327 ml 240 ml 1183 ml Output Total 400 ml 28 ml 900 ml Balance 383 ml 1299 ml 240 ml 283 ml Intake Oral 120 ml 240 ml 240 ml 0 ml IV Total 663 ml 1087 ml 1183 ml Output Urine Total 3 ml Drainage Total 400 ml 25 ml 900 ml # Voids 3 2 3 # Bowel Movements 1 0 (Brett Beth MD R2) Result Diagram: 09/14/16 0316 09/14/16 0316 Imaging Last 72 hours Impressions Chest X-Ray 09/13/16 0000 Signed Impressions: Service Date/Time: August 05:15 - CONCLUSION: Mild central pulmonary vascular congestion. Cihntan Donovan MD CT Angiography 09/13/16 0000 Signed Impressions: Service Date/Time: August 17:11 - CONCLUSION: Small segmental pulmonary emboli in the left lower lobe. No evidence of main pulmonary artery or lobar pulmonary emboli. Small patchy areas of airspace disease without evidence of segmental or lobar consolidation. Dae Herrera MD Abdomen/Pelvis CT 09/12/16 1234 Signed Impressions: Service Date/Time: Monday, September 12, 2016 18:05 - CONCLUSION: 1. No inflammatory changes are seen within the abdomen or pelvis. Scott Pastor MD Chest X-Ray 09/11/16 0913 Signed Impressions: Service Date/Time: Sunday, September 11, 2016 09:16 - CONCLUSION: No acute disease. Shashi Xiong MD Objective Remarks GENERAL: Patient is obese female in NAD lying in bed. SKIN: Warm and dry. Patient with ostomy bag and wound VAC covering repaired fistula. Faint erythema left lateral abdomen. Peripheral IV and PICC line in place in left arm. HEENT: Normocephalic. Atraumatic. EOMI. No scleral icterus. No injection or drainage. No nasal drainage. Moist mucous membranes. CARDIOVASCULAR: Regular rate and rhythm without murmurs, gallops, or rubs RESPIRATORY: Clear to auscultation bilaterally without crackles or wheeze. GASTROINTESTINAL: Abdomen obese. See skin above. Bowel sounds present and normal. MUSCULOSKELETAL: Mild edema of bilateral lower extremities. No calf tenderness. NEURO: Awake and alert. 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 PALLET STONE INSERTER grossly intact. (Brett Beth MD R2) A/P Assessment and Plan 65-year-old female who recently had exploration in [place] with 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 Discharge Planning Patient cleared by general surgery for discharge. Physical therapy recommends PT rehabilitation. Discharge held at this time given new bacteremia and sepsis. (Brett Beth MD R2) Attending Attestation Patient examined and case discussed with resident physicians I have read the above note and agree with the assessment/plan is discussed with me I was involved in all medical decision making for this patient We will obtain ultrasound of the upper extremity and bilateral lower x-rays to evaluate for DVT - If no evidence of DVT we may hold off on anticoagulation given recent PE that may have been associated with PICC line Continue vancomycin and follow blood cultures for susceptibility Fred Mckinney M.D. (Fred Mckinney MD) Problem List: (1) Gram positive septicemia Status: Acute Plan: Gram positive cocci in 3 out of 4 blood cx PICC line d/c'ed Vancomycin started 09/12, remains tachycardic to 104 with some hypotension 95/ 53. WBC improving as well as symptoms. Afebrile x 24 hrs. (2) Pulmonary embolism Status: Acute Plan: Small segmental PE in Left lower lobe, pt also is bleeding from left lower quadrant fistula. Heparing gtt not started given bleeding - H&H slight decrease from 11.5 --> 10. 3. Continue with lovenox and monitor for signs of bleeding. Heme has been consulted and we appreciate their assistance. (3) Enterocutaneous fistula Status: Acute Plan: General Surgery consulted, have cleared patient for discharge 07/28: Status post incision and drainage and washout of left abdominal wall, with wound vac placement due to small bowel fistula Wound VAC changes at bedside by wound care team -Pain control with [place] 7.5325 Q4hrs prn pain 610, morphine 2 mg IV q3h prn breakthrough, hold if SBP < 110 or DBP < 60 -Dilaudid when necessary with wound changes -Repeat blood cultures secondary to fever show gram-positive cocci in pairs and clusters Imaging 07/28 - Abdomen/Pelvis CT: Diffuse and extensive subcutaneous emphysema around the abdominal wall from patient's right lateral abdominal wall across midline to left lateral abdominal wall. Fluid collection in anterior left abdominal wall suspicious for subcutaneous abscess. Nonspecific edema throughout subcutaneous tissues. No acute intra-abdominal or pelvic pathology. -Chest x-ray repeated on 09/01 - no acute cardiopulmonary abnormality appreciated -Repeat CT of abdomen and pelvis with IV contrast 09/12 showing overall improvement and no acute changes Prior antibiotics: - Vancomycin, pharm consult (07/28-08/13), restarted 09/12 -- - Cefepime 2gm IV q8h (07/28-08/13) - Flagyl 500 mg IV q6h (07/28-08/13) 09/10/2016: Slight elevation in white blood cells. From 10,000-13,000. We'll continue to monitor. Patient at high risk for wound infection. If stable, anticipate discharge on 09/11/2016. 09/11/2016: WBC elevated to 16.3K, trending upward. Patient without vital sign changes. Initiating sepsis workup. CXR with no acute process. UA showing trace leukocytes, in patient with foul smelling urine. UCx ordered. Rocephin 1g IV q24h x 2 ordered. 09/12/2016: WBC persistently elevated but stable at 16,000. Mildly increased temperatures of 100.2. UA was negative for infection. Chest x-ray no acute process. Rocephin was switched to the antibiotics above. Blood cultures were noted to be positive for gram-positive cocci in pairs and clusters. 09/13/16: patient improved symptomatically, but tachycardia and fever noted today. Will obtain CTA and echocardiogram to rule out PE/cardiac dyskinesis 09/14/16: Bleeding from ostomy site, 20 cc, decrease in Hg from 11.5 --> 10.3. CTA showed small PE in LL Lobe. Symptoms (fevers, chills, hemoptysis) improving. (4) Physical deconditioning Status: Acute Plan: Patient physically deconditioned after staying in bed for extended period of time. Nursing order to get patient out of bed at least 3 times a day as tolerated with assistance -PT recommends PT at rehabilitation. (5) Urinary tract infection Status: Acute Plan: Resolved. Abx history: Rocephin 08/31-09/01 Ciprofloxacin 08/23-08/31 Vanc 09/11-present (6) Anemia Status: Acute Plan: -Currently stable - Continue to monitor - Iron panel significant for anemia of chronic disease - B12 and Folate both elevated (7) Skin rash Status: Resolved Plan: Rash improved - Completed 7 day course of fluconazole on 09/03 Nystatin powder for groin, axilla, area under breasts, and skin folds Clotrimazole cream for back of neck (8) Depression Status: Chronic Plan: -Continue home Cymbalta 30 mg by mouth daily (9) Lower extremity edema Status: Resolved Plan: Resolved Patient with no pitting edema of bilateral lower extremities on exam. - SCDs - 20 mg Lasix po daily, 25 meq potassium (10) Nutrition, metabolism, and development symptoms Status: Acute Plan: Fluids: NS at 82 ml/hr. Electrolytes: Potassium 4.6. Previously on potassium bicarbonate.TPN held currently given bacteremia. Nutrition: NPO for possible procedure. DVT PPX: SCDs and Lovenox; risk of DVT and PE greater than risk for chronic wound bleeding GI PPX: Pantoprazole BID. wdw Dr. Mckinney. (Brett Beth MD R2) Problem Qualifiers (1) Urinary tract infection: Qualified Code: N30.01 - Acute cystitis with hematuria (2) Anemia: Qualified Code: D64.9 - Anemia, unspecified type Brett Beth MD R2 Sep 14, 2016 08:03 Fred Mckinney MD Sep 14, 2016 12:56
[2016-09-14] MEDS: LACTULOSE SYRUP 20 GM/30 ML CUP PO SCH ×4 (09:00→21:00)
[2016-09-14] MEDS: LACTOBACILLUS ACIDOPHILUS TAB PO SCH ×3 (09:00→19:33)
[2016-09-14] MEDS: PANTOPRAZOLE SOD 40 MG DELAYED RELEASE TAB PO SCH ×2 (09:00→21:38)
[2016-09-14] MEDS: DOCUSATE SODIUM 50 MG/SENNA 8.6 MG TAB PO SCH ×2 (09:00→21:38)
[2016-09-14] MEDS: POLYETHYLENE GLYCOL 17 GM PKG PO SCH (09:00)
[2016-09-14] MEDS: DULoxetine HCl DR 30 MG CAP PO SCH (09:00)
[2016-09-14] MEDS: FUROSEMIDE 20 MG TAB PO SCH (09:00)
[2016-09-14] MEDS: SODIUM CHLORIDE 0.9% FLUSH 5 ML FLUSH IVF SCH ×2 (10:06→21:40)
[2016-09-14] MEDS: EUCERIN CREAM 120 GM JAR TOPICAL PRN (11:35)
[2016-09-14] MEDS: NYSTATIN 100,000 U/GM PWD 15 GM BTL TOPICAL SCH ×2 (11:36→21:00)
[2016-09-14] MEDS: CLOTRIMAZOLE 1% CREAM 15 GM TOPICAL SCH ×2 (11:37→21:00)
[2016-09-14 12:00] VITALS: BP 101/56; PULSE 92; RESP 20; TEMP 96.7; O2SAT 99
--- NOTE | 2016-09-14 12:04 | EC ---
Study Study Date:09/14/2016 STUDY CONCLUSIONS SUMMARY LEFT VENTRICLE: The cavity size was normal. Wall thickness was normal. Systolic function was normal. The estimated ejection fraction was in the range of 55% to 60%. Wall motion was normal; there were no regional wall motion abnormalities. If LV function is below 40, please consider prescribing an ACEI or ARB or document rationale for non-use. PROCEDURE DATA STUDY STATUS: Elective. Procedure: Transthoracic echocardiography. Image quality was poor. Scanning was performed from the parasternal, apical, and subcostal acoustic windows. Study completion: The patient tolerated the procedure well. Transthoracic echocardiography. M-mode, complete 2D, complete spectral Doppler, and color Doppler. Patient status: Inpatient. CARDIAC ANATOMY LEFT VENTRICLE: The cavity size was normal. Wall thickness was normal. Systolic function was normal. The estimated ejection fraction was in the range of 55% to 60%. Wall motion was normal; there were no regional wall motion abnormalities. AORTIC VALVE: Trileaflet; normal thickness leaflets. Doppler: Transvalvular velocity was within the normal range. There was no stenosis. No regurgitation. AORTA: Aortic root: The aortic root was normal in size. MITRAL VALVE: Structurally normal valve. Doppler: Transvalvular velocity was within the normal range. There was no evidence for stenosis. No regurgitation. LEFT ATRIUM: The atrium was normal in size. RIGHT VENTRICLE: The cavity size was normal. Wall thickness was normal. PULMONIC VALVE: Doppler: Transvalvular velocity was within the normal range. There was no evidence for stenosis. No regurgitation. TRICUSPID VALVE: Structurally normal valve. Doppler: Transvalvular velocity was within the normal range. No regurgitation. PULMONARY ARTERY: The main pulmonary artery was normal-sized. Systolic pressure was within the normal range. RIGHT ATRIUM: The atrium was normal in size. PERICARDIUM: There was no pericardial effusion. SYSTEMIC VEINS: Inferior vena cava: The vessel was normal in size. BASIC MEASUREMENTS ADULT NORMAL Left ventricle LV internal dimension, ED, chordal level, 45.7 mm 43-52 PLAX LV internal dimension, ES, chordal level, 33 mm 23-38 PLAX Fractional shortening, chordal level, PLAX *28 % >29 LV posterior wall thickness, ED 7.91 mm IVS/LVPW ratio, ED 1.18 <1.3 Ventricular septum Septal thickness, ED 9.35 mm Left atrium Anterior-posterior dimension 35 mm Right ventricle RV internal dimension, ED, PLAX 26.7 mm 19-38 DOPPLER MEASUREMENTS ADULT NORMAL Main pulmonary artery Pressure, S 16 mm Hg =30 Mitral valve Peak E-wave velocity 56.7 cm/s Peak A-wave velocity 59.3 cm/s Peak E/A ratio 1 Tricuspid valve Regurgitant peak velocity 121 cm/s Peak RV-RA gradient, S 6 mm Hg Maximal regurgitant velocity 121 cm/s Systemic veins Estimated CVP 10 mm Hg Right ventricle RV pressure, S 16 mm Hg <30 LEGEND: Mean values are shown as u=mean value. Asterisk (*) squires values outside specified normal range. Prepared and signed by Vance Wise [id number]
--- NOTE | 2016-09-14 15:20 | RADRPT ---
EXAM DATE/TIME: 09/14/2016 14:02 [facility] COMPARISON: US LEG BILATERAL VENOUS DOPPLER, October 27, 2015, 8:00. INDICATIONS : Pulmonary embolism. MEDICAL HISTORY : Hypercholesterolemia. Hypertension. Seizures. Bowel obstruction. Diverticulitis. Spinal stenosis. Ar thritis. SURGICAL HISTORY : Colectomy. Colostomy. Gastric bypass. Left knee arthroscopy. Left index finger surgery. Hernia repair . ENCOUNTER: Subsequent ACUITY: 1 day PAIN SCORE: 5/10 LOCATION: Bilateral legs. TECHNIQUE: Venous ultrasound of the left and right leg was performed from the inguinal ligament to the proximal calf. Real-time, color Doppler and spectral tracing, compression and augmentation techniques were us ed. FINDINGS: RIGHT LEG: There is normal compressibility of the deep venous system from the inguinal region to the proximal ca lf. No echogenic clot is seen in the lumen of the common femoral, femoral, popliteal, and posterior tibial veins. There is a normal response of the venous system to proximal and distal augmentation an d respiration. LEFT LEG: There is normal compressibility of the deep venous system from the inguinal region to the proximal ca lf. No echogenic clot is seen in the lumen of the common femoral, femoral, popliteal, and posterior tibial veins. There is a normal response of the venous system to proximal and distal augmentation an d respiration. CONCLUSION: There is normal compressibility of the deep venous system from the inguinal region to the proximal ca lf. No echogenic clot is seen in the lumen of the common femoral, femoral, popliteal, and posterior tibial veins. There is a normal response of the venous system to proximal and distal augmentation an d respiration. CONCLUSION: Negative for deep venous thrombosis. Shen Scott MD FACR. Shen Scott MD FACR on September 14, 2016 at 15:18 Board Certified Radiologist. This report was verified electronically.
--- NOTE | 2016-09-14 15:24 | RADRPT ---
EXAM DATE/TIME: 09/14/2016 14:21 [facility] COMPARISON: No previous studies available for comparison. INDICATIONS : Emboli. MEDICAL HISTORY : Hypercholesterolemia. Hypertension. Arthritis. Spinal stenosis. Diverticulitis. Bowel obstruction. SURGICAL HISTORY : Colectomy. Colostomy. Gastric bypass. Left knee arthroscopy. Left index finger surgery. Hernia repair . ENCOUNTER: Subsequent ACUITY: 1 day PAIN SCORE: 0/10 LOCATION: Bilateral arm. FINDINGS: RIGHT UPPER EXTREMITY: There is spontaneous flow documented in the brachial, basilic, cephalic, axillary, and subclavian vei ns. The vessels are compressible and augmentation response is documented. No filling defects are se en. The flow is phasic with respiration. Direction of flow in the jugular vein is caudal. LEFT UPPER EXTREMITY: Occlusive thrombus is seen in the left cephalic vein associated with the PICC line. There is no janette p venous thrombosis. CONCLUSION: Superficial thrombosed left cephalic vein associated with the PICC line. Shen Scott MD FACR on September 14, 2016 at 15:19 Board Certified Radiologist. This report was verified electronically.
--- NOTE | 2016-09-14 15:32 | HHI.IDPN ---
Subjective Subjective Remarks Pt is feeling ok She is taking PO she is afebrile Antibiotics vancomycin Allergies: Coded Allergies: Penicillin (Verified Allergy, Severe, rash, 07/28/16) Objective . Vital Signs Date Time Temp Pulse Resp B/P Pulse Ox O2 Delivery O2 Flow Rate FiO2 09/14/16 12:00 96.7 92 20 101/56 99 09/14/16 08:00 96.9 96 20 92/51 94 09/14/16 04:00 99.4 104 17 99/56 95 09/14/16 00:00 98.7 111 17 99/59 97 09/13/16 20:00 98.8 111 17 105/55 97 09/13/16 16:00 97.7 102 16 78/49 95 09/13/16 09/13/16 09/14/16 15:00 23:00 07:00 Intake Total 1327 ml 240 ml 1183 ml Output Total 28 ml 900 ml Balance 1299 ml 240 ml 283 ml Intake Oral 240 ml 240 ml 0 ml IV Total 1087 ml 1183 ml Output Urine Total 3 ml Drainage Total 25 ml 900 ml # Voids 2 3 # Bowel Movements 0 . Laboratory Tests Test 09/13/16 09/13/16 09/14/16 09:25 19:57 03:16 White Blood Count 14.3 TH/MM3 13.6 TH/MM3 11.7 TH/MM3 Red Blood Count 4.39 MIL/MM3 4.34 MIL/MM3 3.99 MIL/MM3 Hemoglobin 11.8 GM/DL 11.5 GM/DL 10.3 GM/DL Hematocrit 37.6 % 36.4 % 32.8 % Mean Corpuscular Volume 85.7 FL 83.7 FL 82.3 FL Mean Corpuscular Hemoglobin 26.9 PG 26.5 PG 25.8 PG Mean Corpuscular Hemoglobin 31.3 % 31.7 % 31.4 % Concent Red Cell Distribution Width 18.0 % 17.3 % 17.3 % Platelet Count 287 TH/MM3 284 TH/MM3 285 TH/MM3 Mean Platelet Volume 8.0 FL 8.2 FL 7.6 FL Neutrophils (%) (Auto) 84.3 % 81.0 % Lymphocytes (%) (Auto) 7.1 % 8.4 % Monocytes (%) (Auto) 6.8 % 8.0 % Eosinophils (%) (Auto) 1.2 % 2.0 % Basophils (%) (Auto) 0.6 % 0.6 % Neutrophils # (Auto) 12.0 TH/MM3 9.4 TH/MM3 Lymphocytes # (Auto) 1.0 TH/MM3 1.0 TH/MM3 Monocytes # (Auto) 1.0 TH/MM3 0.9 TH/MM3 Eosinophils # (Auto) 0.2 TH/MM3 0.2 TH/MM3 Basophils # (Auto) 0.1 TH/MM3 0.1 TH/MM3 CBC Comment AUTO DIFF DIFF FINAL Differential Comment AUTO DIFF CONFIRMED Platelet Estimate NORMAL Platelet Morphology Comment CLUMPED Hematology Comments Laboratory Tests Test 09/13/16 09/13/16 09/14/16 05:17 09:25 03:16 Troponin I LESS THAN 0.02 NG/ML Sodium Level 130 MEQ/L 134 MEQ/L Potassium Level 5.0 MEQ/L 4.6 MEQ/L Chloride Level 98 MEQ/L 104 MEQ/L Carbon Dioxide Level 18.8 MEQ/L 20.6 MEQ/L Anion Gap 13 MEQ/L 9 MEQ/L Blood Urea Nitrogen 66 MG/DL 46 MG/DL Creatinine 1.23 MG/DL 0.79 MG/DL Estimat Glomerular Filtration 44 ML/MIN 73 ML/MIN Rate Random Glucose 187 MG/DL 108 MG/DL Calcium Level 9.3 MG/DL 9.0 MG/DL Total Bilirubin 0.8 MG/DL 0.6 MG/DL Aspartate Amino Transf 25 U/L 19 U/L (AST/SGOT) Alanine Aminotransferase 44 U/L 42 U/L (ALT/SGPT) Alkaline Phosphatase 305 U/L 309 U/L Total Protein 7.1 GM/DL 6.7 GM/DL Albumin 2.1 GM/DL 2.1 GM/DL Microbiology Date/Time Procedure Status Source Growth 09/13/16 05:17 Aerobic Blood Culture - Preliminary Resulted Blood Peripheral NO GROWTH IN 1 DAY 09/13/16 05:17 Anaerobic Blood Culture - Preliminary Resulted Blood Peripheral NO GROWTH IN 1 DAY 09/13/16 20:15 Stool Occult Blood (FABIEN) - Final Complete Stool Stool HEMOCCULT POSITIVE Imaging Last Impressions Chest X-Ray 09/13/16 0000 Signed Impressions: Service Date/Time: August 05:15 - CONCLUSION: Mild central pulmonary vascular congestion. Chintan Donovan MD CT Angiography 09/13/16 0000 Signed Impressions: Service Date/Time: August 17:11 - CONCLUSION: Small segmental pulmonary emboli in the left lower lobe. No evidence of main pulmonary artery or lobar pulmonary emboli. Small patchy areas of airspace disease without evidence of segmental or lobar consolidation. Dae Herrera MD Abdomen/Pelvis CT 09/12/16 1234 Signed Impressions: Service Date/Time: Monday, September 12, 2016 18:05 - CONCLUSION: 1. No inflammatory changes are seen within the abdomen or pelvis. Scott Pastor MD Abdomen X-Ray 09/06/16 0000 Signed Impressions: Service Date/Time: August 15:49 - CONCLUSION: 1. Nonspecific bowel gas pattern without evidence for obstruction or free air. Adrian Rendon MD Soft Tissue Ultrasound 08/31/16 0000 Signed Impressions: Service Date/Time: Wednesday, August 31, 2016 21:56 - CONCLUSION: Negative Shashi Mera MD Physical Exam CONSTITUTIONAL/GENERAL: This is a morbidly obese female patient, in no apparent distress. SKIN: No jaundice, rashes, or lesions. Skin temperature appropriate. Not diaphoretic. CARDIOVASCULAR: Regular rate and rhythm without murmurs, gallops, or rubs. No JVD. Peripheral pulses symmetric. RESPIRATORY/CHEST: Symmetric, unlabored respirations. Clear to auscultation. Breath sounds equal bilaterally. No wheezes, rales, or rhonchi. GASTROINTESTINAL: Abdomen soft, non-tender, nondistended. No hepato-splenomegaly , or palpable masses. No guarding. Bowel sounds present. ABdomen is obese with multiple scars rom previous surgeries VAC in place in mid abdomen with serosang dc LLQ enterocutaneous fistula seen with very large amount of watery light brown stool LLQ with residual erythema and edema MUSCULOSKELETAL: Extremities without clubbing, cyanosis, or edema. NEUROLOGICAL: Awake and alert.NOn focal Assessment & Plan Remarks High garde staph epi bacteremia - likely from PICC - removed Abdominal wall abscess on admission, sp tx Enterocutaneous fistual, high output Cont vancomycin x 5 - 7 day following removal of the catheter fu repeat blood clx untill final if remains negative no further tx or tests needed Ella Jimenez MD Sep 14, 2016 15:32
[2016-09-14 16:00] VITALS: BP 95/59; PULSE 91; RESP 20; TEMP 97.8; O2SAT 97
[2016-09-14] MEDS: ENOXAPARIN SODIUM 40 MG/0.4 ML SYRINGE SQ SCH (16:25)
[2016-09-14] MEDS: ACETAMINOPHEN/HYDROcodone 325 MG/7.5 MG TAB PO PRN (16:40)
[2016-09-14 20:00] VITALS: BP 99/56; PULSE 90; RESP 18; TEMP 97.2; O2SAT 100
[2016-09-14] MEDS: PRAMIPEXOLE DIHYDROCHLORIDE 0.25 MG TAB PO SCH (21:38)
[2016-09-14] MEDS: ZOLPIDEM TARTRATE 5 MG TAB PO PRN (23:18)
[2016-09-15] VITALS: BP 107/55; PULSE 97; RESP 17; TEMP 99.5; O2SAT 98
[2016-09-15] MEDS: SODIUM CHLOR 0.9% 1000 ML INJ 1,000 ML IV SCH ×2 (02:05→14:37)
[2016-09-15 04:58] LABS: PROTHROMBIN TIME - PATIENT 11.3 SEC (9.8-11.6)
[2016-09-15 04:59] LABS: AUTOMATED NEUTROPHIL # 7.6 TH/MM3 (1.8-7.7); BASOPHIL # 0.1 TH/MM3 (0-0.2); EOSINOPHIL # 0.2 TH/MM3 (0-0.4); HEMO FLAGS DIFF FINAL; LYMPH % 9.3 % (9.0-44.0); LYMPHOCYTE # 0.9 TH/MM3 (1.0-4.8); MEAN CELL VOLUME 82.7 FL (80.0-100.0); MEAN CORPUSCULAR HEMOGLOBIN 26.6 PG (27.0-34.0); MEAN CORPUSCULAR HGB CONC 32.2 % (32.0-36.0); MONO % 7.7 % (0.0-8.0); PLATELET COUNT 278 TH/MM3 (150-450); RED BLOOD COUNT 3.87 MIL/MM3 (4.00-5.30); RED CELL DISTRIBUTION WIDTH 17.7 % (11.6-17.2); WHITE BLOOD COUNT 9.5 TH/MM3 (4.0-11.0)
[2016-09-15] MEDS: OCTREOTIDE INJ 100 MCG/ML VIAL IV PUSH SCH ×3 (05:02→22:00)
[2016-09-15] MEDS: VANCOMYCIN INJ 1,750 MG in SODIUM CHLORID 0.9% 500 ML INJ 500 ML IV SCH (05:10)
[2016-09-15 05:35] LABS: ALKALINE PHOSPHATASE 307 U/L (45-117); ALT (GPT) 37 U/L (10-53); ANION GAP 12 MEQ/L (5-15); AST (GOT) 18 U/L (15-37); BICARBONATE 17.1 MEQ/L (21.0-32.0); BLOOD UREA NITROGEN 34 MG/DL (7-18); CHLORIDE 105 MEQ/L (98-107); GLOMERULAR FILTRATION RATE 73 ML/MIN (>89); POTASSIUM 4.5 MEQ/L (3.5-5.1); SODIUM (NA) 134 MEQ/L (136-145); TOTAL BILIRUBIN ADULT 0.6 MG/DL (0.2-1.0)
[2016-09-15 08:00] VITALS: BP 104/57; PULSE 97; RESP 20; TEMP 97.9; O2SAT 96
[2016-09-15] MEDS: DULoxetine HCl DR 30 MG CAP PO SCH (08:51)
[2016-09-15] MEDS: FUROSEMIDE 20 MG TAB PO SCH (08:51)
[2016-09-15] MEDS: LACTOBACILLUS ACIDOPHILUS TAB PO SCH ×3 (08:51→18:36)
[2016-09-15] MEDS: POLYETHYLENE GLYCOL 17 GM PKG PO SCH (08:51)
[2016-09-15] MEDS: DOCUSATE SODIUM 50 MG/SENNA 8.6 MG TAB PO SCH ×2 (08:51→22:13)
[2016-09-15] MEDS: NYSTATIN 100,000 U/GM PWD 15 GM BTL TOPICAL SCH ×2 (08:52→21:00)
[2016-09-15] MEDS: CLOTRIMAZOLE 1% CREAM 15 GM TOPICAL SCH ×2 (08:52→21:00)
[2016-09-15] MEDS: ENOXAPARIN SODIUM 40 MG/0.4 ML SYRINGE SQ SCH ×2 (08:56→22:13)
[2016-09-15] MEDS: PANTOPRAZOLE SOD 40 MG DELAYED RELEASE TAB PO SCH ×2 (08:56→22:14)
[2016-09-15] MEDS: INSULIN DETEMIR 100 UNITS/ML VIAL SQ SCH ×2 (08:57→21:00)
[2016-09-15] MEDS: LACTULOSE SYRUP 20 GM/30 ML CUP PO SCH ×4 (08:57→21:00)
[2016-09-15] MEDS: SODIUM CHLORIDE 0.9% FLUSH 5 ML FLUSH IVF SCH ×2 (08:57→21:00)
--- NOTE | 2016-09-15 10:05 | HHI.FPPN ---
Subjective Remarks Patient with no complaints. The ostomy bag is leaking from the lower section. No fever, chills, chest pain. There were no adverse events overnight. Patient has been evaluated by hematology today. (Mabel Wheeler MD) Objective Vitals Vital Signs Date Time Temp Pulse Resp B/P Pulse Ox O2 Delivery O2 Flow Rate FiO2 09/15/16 08:00 97.9 97 20 104/57 96 09/15/16 00:00 99.5 97 17 107/55 98 09/14/16 20:00 97.2 90 18 99/56 100 09/14/16 16:00 97.8 91 20 95/59 97 09/14/16 12:00 96.7 92 20 101/56 99 I/O 09/14/16 09/14/16 09/14/16 09/15/16 09/15/16 09/15/16 07:00 15:00 23:00 07:00 15:00 23:00 Intake Total 1183 ml 420 ml 661 ml 866 ml Output Total 900 ml 1300 ml 1400 ml 225 ml Balance 283 ml -880 ml -739 ml 641 ml Intake Oral 0 ml 420 ml 240 ml 240 ml IV Total 1183 ml 421 ml 626 ml Stool Total 1300 ml Drainage Total 900 ml 1400 ml 225 ml # Voids 3 4 2 3 (Mabel Wheeler MD) Result Diagram: 09/15/1633509/15/16335 Objective Remarks GENERAL: Patient is obese female in NAD lying in bed. SKIN: Warm and dry. Patient with ostomy bag and wound VAC covering repaired fistula. Faint erythema left lateral abdomen. HEENT: Normocephalic. Atraumatic. EOMI. No scleral icterus. No injection or drainage. No nasal drainage. Moist mucous membranes. CARDIOVASCULAR: Regular rate and rhythm without murmurs, gallops, or rubs RESPIRATORY: Clear to auscultation bilaterally without crackles or wheeze. GASTROINTESTINAL: Abdomen obese. See skin above. Bowel sounds present and normal. MUSCULOSKELETAL: Mild edema of bilateral lower extremities. No calf tenderness. NEURO: Awake and alert. 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 RN TRAVEL grossly intact. (Mabel Wheeler MD) Urinary Catheter: No (Mabel Wheeler MD) Vascular Central Line Catheter: No (Mabel Wheeler MD) A/P Assessment and Plan 65-year-old female who recently had exploration in [place] with 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 Discharge Planning Patient cleared by general surgery for discharge. Physical therapy recommends PT rehabilitation. Discharge held at this time given new bacteremia and sepsis. (Mabel Wheeler MD) Attending Attestation Pt. examined and case discussed with resident physicians I have read the above note and agree with the assessment/plan as discussed with me I was involved in all medical decision making for this patient Fred Mckinney MD (Fred Mckinney MD) Problem List: (1) Gram positive septicemia Status: Acute Plan: Gram positive cocci in 3 out of 4 blood cx. PICC removed on 09/13. Afebrile x 24 hrs. Leukocytosis improved, WBC 9500 today. Repeat blood culture today Vancomycin 1750 g IV q24h (started 09/12) (2) Pulmonary embolism Status: Acute Plan: Small segmental PE in Left lower lobe, pt with bleeding from left lower quadrant fistula yesterday, now resolved. Heparin gtt not started given bleeding - H&H slight decrease from 11.5 --> 10.3. Hg Stable. Per Hematology recs, Lovenox 40 mg q12h monitor for signs of bleeding. Plan to increase to Lovenox 60 mg q12h if tolerating Appreciate Heme recs. (3) Enterocutaneous fistula Status: Acute Plan: General Surgery consulted, have cleared patient for discharge 07/28: Status post incision and drainage and washout of left abdominal wall, with wound vac placement due to small bowel fistula Wound VAC changes at bedside by wound care team -Pain control with [place] 7.5325 Q4hrs prn pain 610, morphine 2 mg IV q3h prn breakthrough, hold if SBP < 110 or DBP < 60 -Dilaudid when necessary with wound changes -Repeat blood cultures 09/13 secondary to fever show gram-positive cocci in pairs and clusters -Repeat blood culture Imaging 07/28 - Abdomen/Pelvis CT: Diffuse and extensive subcutaneous emphysema around the abdominal wall from patient's right lateral abdominal wall across midline to left lateral abdominal wall. Fluid collection in anterior left abdominal wall suspicious for subcutaneous abscess. Nonspecific edema throughout subcutaneous tissues. No acute intra-abdominal or pelvic pathology. -Chest x-ray repeated on 09/01 - no acute cardiopulmonary abnormality appreciated -Repeat CT of abdomen and pelvis with IV contrast 09/12 showing overall improvement and no acute changes Prior antibiotics: - Vancomycin, pharm consult (07/28-08/13), restarted 09/12 -- - Cefepime 2gm IV q8h (07/28-08/13) - Flagyl 500 mg IV q6h (07/28-08/13) 09/10/2016: Slight elevation in white blood cells. From 10,000-13,000. We'll continue to monitor. Patient at high risk for wound infection. If stable, anticipate discharge on 09/11/2016. 09/11/2016: WBC elevated to 16.3K, trending upward. Patient without vital sign changes. Initiating sepsis workup. CXR with no acute process. UA showing trace leukocytes, in patient with foul smelling urine. UCx ordered. Rocephin 1g IV q24h x 2 ordered. 09/12/2016: WBC persistently elevated but stable at 16,000. Mildly increased temperatures of 100.2. UA was negative for infection. Chest x-ray no acute process. Rocephin was switched to the antibiotics above. Blood cultures were noted to be positive for gram-positive cocci in pairs and clusters. 09/13/16: patient improved symptomatically, but tachycardia and fever noted today. Will obtain CTA and echocardiogram to rule out PE/cardiac dyskinesis 09/14/16: Bleeding from ostomy site, 20 cc, decrease in Hg from 11.5 --> 10.3. CTA showed small PE in LL Lobe. Symptoms (fevers, chills, hemoptysis) improving. 09/15/16: No further bleeding from the ostomy site. Hg stable at 10.3. Patient having increased Lovenox frequency started this morning, now Lovenox 40 mg po q12h. Asymptomatic. (4) Physical deconditioning Status: Acute Plan: Patient physically deconditioned after staying in bed for extended period of time. Nursing order to get patient out of bed at least 3 times a day as tolerated with assistance -PT recommends PT at rehabilitation. (5) Urinary tract infection Status: Resolved Plan: Resolved. Abx history: Rocephin 08/31-09/01 Ciprofloxacin 08/23-08/31 Vanc 09/11-present (6) Anemia Status: Chronic Plan: -Currently stable - Continue to monitor - Iron panel significant for anemia of chronic disease - B12 and Folate both elevated (7) Skin rash Status: Resolved Plan: Rash improved - Completed 7 day course of fluconazole on / Nystatin powder for groin, axilla, area under breasts, and skin folds Clotrimazole cream for back of neck (8) Depression Status: Chronic Plan: -Continue home Cymbalta 30 mg by mouth daily (9) Lower extremity edema Status: Resolved Plan: Resolved Patient with no pitting edema of bilateral lower extremities on exam. - SCDs - 20 mg Lasix po daily, 25 meq potassium (10) Nutrition, metabolism, and development symptoms Status: Acute Plan: Fluids: NS at 82 ml/hr. Electrolytes: Potassium 4.6. Previously on potassium bicarbonate.TPN held currently given bacteremia. Nutrition: NPO for possible procedure. DVT PPX: SCDs and Lovenox; risk of DVT and PE greater than risk for chronic wound bleeding GI PPX: Pantoprazole BID. wdw Dr. Mckinney. (Mabel Wheeler MD) Problem Qualifiers (1) Urinary tract infection: Qualified Code: N30.01 - Acute cystitis with hematuria (2) Anemia: Qualified Code: D64.9 - Anemia, unspecified type (3) Depression: Qualified Code: F33.9 - Recurrent major depressive disorder, remission status unspecified (4) Lower extremity edema: Qualified Code: R60.0 - Bilateral edema of lower extremity Mabel Wheeler MD Sep 15, 2016 10:05 Fred Mckinney MD Sep 15, 2016 20:49
--- NOTE | 2016-09-15 10:05 | MB ---
cc: ASH SAUCEDO MD DATE OF CONSULTATION: 09/15/2016 DATE OF : 1950 REASON FOR CONSULTATION: Patient with subsegmental left lung pulmonary emboli; noted on CT angiogram dated 09/13/2016. She was also found to have a left cephalic (superficial vein) venous thrombosis of the left upper extremity; associated with a PICC line. CURRENT TREATMENT The patient is on Lovenox 40 mg Subcu q.24 h. She has not been put on therapeutic anticoagulation because there was some blood seepage from a large colocutaneous fistula involving the left lower quadrant of her abdomen. CHIEF COMPLAINT Ms. Menard reports having had acute onset shortness of breath on 09/13/2016 when her PICC line from the left upper extremity was pulled. She tells me the difficulty breathing has now resolved. Additionally the patient reports discomfort at the site for fistula. HISTORY OF PRESENT ILLNESS Ms. Menard is a 65-year-old female who has been hospitalized at this facility since late July 2016. The patient was admitted initially due to his due to swelling and pain involving her abdomen, specifically in the left lower quadrant. She has a history of multiple abdominal surgeries including gastric bypass as well as multiple surgeries for abdominal wall hernias and fistula repair. It is apparent based on clinical exam that shortly after her admission she was noted to have a large abscess involving the abdominal wall. She underwent incision and drainage of this. The first surgery was performed on 08/02/2016. She subsequently underwent extensive debridement of necrotic tissue and was found to have a fistula tract going into the colon. A wound vac was placed and she was initiated on antibiotics. Over the course of this hospitalization she has had multiple surgical debridements. 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 In fact the patient tells me today that most of her stools are coming out of the colocutaneous fistula and that she has not moved her bowels in over a week. For management of her antibiotics she did have a left upper extremity PICC line placed. The PICC line was removed on 09/14/2015 and the patient reports noting immediate onset difficulty breathing. CT angiogram was done which revealed a subsegmental pulmonary emboli involving the left lower lobe. She was initiated on anticoagulation. However, she was noted to have increased bleeding from the fistula site, the bleeding was described as red blood. Subsequent ultrasound Doppler studies of the upper and lower extremities indicated no evidence of lower extremity deep venous thromboses but she was found to have a superficial venous thrombosis involving the left cephalic vein (ipsilateral to the PICC line). The hematology service has been asked to see this patient to determine if we may up titrate her anticoagulation. I would also like to mention that there was a corresponding decline in her hemoglobin at the corresponding with initiation of anticoagulation. PAST MEDICAL HISTORY 1. Morbid obesity. Diabetes 2. Hypertension. 3. Bowel obstruction. 4. Diverticulosis 5. Seizure disorder. 6. Reported history of systemic lupus erythematosus 7. Large colocutaneous fistula. PAST SURGICAL HISTORY 1. Gastric bypass in 2004 with resultant multiple hernias. 2. Knee surgery 2002. 3. Open cholecystectomy in 2015. 4. Multiple a abdominal wall hernia repair surgeries. 5. Abdominal abscess with colostomy in 2000. 6. Colostomy takedown 2001. 7. Multiple debridements surgeries for abdominal wall hernias. FAMILY HISTORY No family history of malignancy that she knows of. SOCIAL HISTORY The patient is , she lives at home with her , former smoker. ALLERGIES PENICILLIN which causes severe rash. CURRENT INPATIENT MEDICATIONS: 1. Lovenox 40 mg Subcu once daily. 2. Vancomycin 1750 IV q.24 h. 3. Fioricet 1 tablet p.o. q.6 h as needed for headache. 4. Tylenol/Hydrocodone 325 / 7.5 every 4 hours as needed for pain scale 6-10. 5. Tylenol 650 mg p.o. q.6 h needed for fever. 6. Dulcolax 10 mg per rectum daily. 7. Diphenhydramine /Zinc cream topical p.r.n. for itching. 8. Colace / senna 2 tablets p.o. b.i.d. 9. Cymbalta 30 mg p.o. daily. 10. Furosemide 20 mg p.o. daily. 11. Dilaudid 1 mg IV with dressing changes. 12. Insulin Levemir 5 units Subcu q.12 h. 13. Lactobacillus 1 tablet p.o. t.i.d. 14. lactulose 30 ML p.o. q.i.d. 15. Octreotide 10 mcg IV push q.8 h. 16. Pantoprazole 40 mcg p.o. b.i.d. 17. MiraLax 17 grams p.o. daily. 18. Ambien 5 mg p.o. q.h.s. as needed for insomnia. REVIEW OF SYSTEMS 13-point review of systems is obtained the following are the pertinent positives and negatives: CONSTITUTIONAL: The patient reports generalized fatigue, weakness, she reports poor appetite. She reports poor energy levels. She tells me she is unable to get up out of bed without assistance. HEAD, EYES, EARS, NOSE, AND THROAT: No headaches, nosebleeds, soreness in the throat, tooth decay or jaw pain. RESPIRATORY: Reports having had a brief period difficulty breathing that this is now resolved. Denies cough or hemoptysis. CARDIOVASCULAR SYSTEM: Denies angina-like chest pain, PND, orthopnea GASTROINTESTINAL: Please see HPI for multiple abdominal wall abscesses and colocutaneous fistula. She reports constipation. GENITOURINARY: Denies dysuria, hematuria, urinary incontinence. CENTRAL NERVOUS SYSTEM: Denies any focal sensory or motor deficits. MUSCULOSKELETAL: Reports generalized muscle atrophy. PHYSICAL EXAMINATION VITAL SIGNS: Temperature 97.9 degrees Fahrenheit, heart rate 97 beats minute, respiratory rate 20, blood pressure 104/57, O2 sats are 96% on room air. GENERAL APPEARANCE: Ms. Menard is a pleasant appearing elderly female, she is laying in bed, she appears to be no acute distress. HEAD, EYES, EARS, NOSE, AND THROAT: Head atraumatic, normocephalic, conjunctive are mildly pale sclerae are anicteric, Extraocular muscles intact, Pupils equal, round, reactive to light and accommodation, oral exam no pharyngeal erythema. NECK: Neck exam no palpable cervical or supraclavicular lymphadenopathy. RESPIRATORY EXAMINATION: Good air movement bilaterally. No added breath sounds. CARDIOVASCULAR SYSTEM: Regular rate and rhythm, S1-S2. No obvious murmurs, gallops. ABDOMEN: Obese belly, she has a wound vac in the epigastric area. She has a large ostomy bag over the left lower quadrant containing fecal matter, no active bleeding in there. 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 The abdomen is otherwise nontender. Positive bowel sounds. LOWER EXTREMITIES: Severe muscle atrophy, no pretibial edema. No calf tenderness. CENTRAL NERVOUS SYSTEM: No focal sensory motor deficits. IMAGING STUDIES Ultrasound Dopplers of the upper extremity dated 09/14/2016; Superficial thrombosed left cephalic vein associated with a PICC line. Ultrasound Doppler studies of the lower extremities bilateral: No evidence of deep venous thromboses. CT angiogram dated 09/13/2016: Reveals evidence of small segmental pulmonary emboli in the left lower lobe. No evidence of main pulmonary artery or lobar pulmonary artery emboli. Small patchy areas of airspace disease without evidence of segmental lobar consolidation. ASSESSMENT Ms. Menard is a very pleasant 65-year-old female who has had multiple sequelae and complications following numerous abdominal surgeries. She has a history of diverticulitis and as early as 2000. She developed a large abscess involving the sigmoid colon, she required a colostomy with partial colon resection and eventually underwent reversal of colostomy. In 2004 she underwent gastric bypass surgery for management of morbid obesity and subsequently had additional abdominal surgery including cholecystectomy. She did have complications of abdominal wall hernias which required multiple surgeries to repair. Most recently she developed a abdominal wall abscess secondary to a fistula tracking down to the colon. Eventually this abscess resulted in a colocutaneous fistula. She has been in the hospital now since late July and has required IV antibiotics. For delivery of the antibiotics. She had a left upper extremity PICC line in place. This line after 5 weeks was removed and at the time of removal. The patient developed acute onset difficulty breathing. CT angiogram indicated a small subsegmental pulmonary emboli in the left lower lobe. Addition ultrasound Doppler of the left upper extremity reveals a superficial thrombosis involving the left cephalic vein. The patient was appropriately put on anticoagulation. I have believe with intravenous heparin and within 24 hours she had a 1 gm/dl drop in her hemoglobin and also was noted to have bleeding from the cold cutaneous fistula in the left lower quadrant. Per the staff who dressed that wound she actually had red blood. The oncology / hematology service has been asked to evaluate this patient to determine the best approach to anticoagulating her knowing that she has observed bleeding as well as documented decline in hemoglobin when put on therapeutic anticoagulation. RECOMMENDATIONS Subsegmental left lower lobe pulmonary artery branch pulmonary emboli: I would recommend increasing the dose of Lovenox from 40 mg Subcu once daily to 40 mg twice daily and monitoring her closely. Should she tolerate this I with a further increase the anticoagulation to 60 mg Subcu q.12 h and monitor. It is apparent that she did bleed from the colocutaneous fistula but that bleeding seemed somewhat self-limited. It may be reasonable to challenge her again with therapeutic anticoagulation to determine the severity of the bleeding while monitoring her closely. She thankfully is not symptomatic at this point from a standpoint of her pulmonary emboli and shows no evidence of cardiopulmonary failure. Superficial left upper extremity venous thrombosis: This may be managed with warm compresses 3 or 4 times daily to prevent progression and to prevent symptoms of edema and pain. The hematology service will follow along with you. MD ORA Butcher/jessica /8:24 AM /9:33 AM MTDMandy
[2016-09-15 12:00] VITALS: BP 91/54; PULSE 97; RESP 20; TEMP 99.2; O2SAT 99
[2016-09-15] MEDS: ACETAMINOPHEN/HYDROcodone 325 MG/7.5 MG TAB PO PRN ×2 (14:36→22:14)
[2016-09-15 16:00] VITALS: BP 92/51; PULSE 93; RESP 20; TEMP 98.2; O2SAT 96
[2016-09-15 20:00] VITALS: BP 98/55; PULSE 84; RESP 18; TEMP 97; O2SAT 97
[2016-09-15] MEDS: PRAMIPEXOLE DIHYDROCHLORIDE 0.25 MG TAB PO SCH (22:14)
[2016-09-15] MEDS: ZOLPIDEM TARTRATE 5 MG TAB PO PRN (23:42)
[2016-09-16] VITALS: BP 98/55; PULSE 87; RESP 20; TEMP 97.6; O2SAT 96
[2016-09-16] MEDS: SODIUM CHLOR 0.9% 1000 ML INJ 1,000 ML IV SCH ×2 (03:18→15:05)
[2016-09-16] MEDS: OCTREOTIDE INJ 100 MCG/ML VIAL IV PUSH SCH ×3 (05:31→20:13)
[2016-09-16] MEDS: VANCOMYCIN INJ 1,750 MG in SODIUM CHLORID 0.9% 500 ML INJ 500 ML IV SCH (05:34)
[2016-09-16 05:45] LABS: AUTOMATED NEUTROPHIL # 4.6 TH/MM3 (1.8-7.7); BASOPHIL % 0.3 % (0.0-2.0); EOSINOPHIL # 0.3 TH/MM3 (0-0.4); HEMO FLAGS DIFF FINAL; LYMPH % 18.4 % (9.0-44.0); LYMPHOCYTE # 1.3 TH/MM3 (1.0-4.8); MEAN CELL VOLUME 83.1 FL (80.0-100.0); MEAN CORPUSCULAR HEMOGLOBIN 26.7 PG (27.0-34.0); MEAN CORPUSCULAR HGB CONC 32.1 % (32.0-36.0); MONO % 9.4 % (0.0-8.0); NEUT % 67.9 % (16.0-70.0); PLATELET COUNT 290 TH/MM3 (150-450); RED BLOOD COUNT 3.49 MIL/MM3 (4.00-5.30); RED CELL DISTRIBUTION WIDTH 16.9 % (11.6-17.2); WHITE BLOOD COUNT 6.8 TH/MM3 (4.0-11.0)
[2016-09-16] MEDS ORDERED: PHARMACY ORDERED LAB XX ONE (05:45)
[2016-09-16 06:53] LABS: BICARBONATE 20.5 MEQ/L (21.0-32.0); POTASSIUM 4.2 MEQ/L (3.5-5.1); VANCOMYCIN TROUGH 13.6 MCG/ML (5.0-10.0)
[2016-09-16 08:00] VITALS: BP 101/53; PULSE 82; RESP 18; TEMP 97; O2SAT 98
--- NOTE | 2016-09-16 08:14 | HHI.FPPN ---
Subjective Remarks Patient reports she feels very good today. She denies any fevers, chills, nausea , vomiting. Ostomy output has increased. States she has not had a bowel movement in probably a week but is passing flatus. She notes that she had a "spot on the lung" 2 years ago which was followed by a PCP (she was a smoker) but she was cleared after [address] scans of the chest. She does not recall which lung had a nodule. (Norma Wheeler MD R1) Objective Vitals Vital Signs Date Time Temp Pulse Resp B/P Pulse Ox O2 Delivery O2 Flow Rate FiO2 09/16/16 00:00 97.6 87 20 98/55 96 09/16/16 00:00 16 09/15/16 20:00 97.0 84 18 98/55 97 09/15/16 16:00 98.2 93 20 92/51 96 09/15/16 12:00 99.2 97 20 91/54 99 I/O 09/15/16 09/15/16 09/15/16 09/16/16 09/16/16 09/16/16 07:00 15:00 23:00 07:00 15:00 23:00 Intake Total 866 ml 3453 ml 871 ml 855 ml Output Total 225 ml 1025 ml 300 ml 0 ml Balance 641 ml 2428 ml 571 ml 855 ml Intake Oral 240 ml 2300 ml 240 ml 240 ml IV Total 626 ml 1153 ml 631 ml 615 ml Stool Total 300 ml Drainage Total 225 ml 1025 ml 0 ml 0 ml # Voids 3 5 2 3 # Bowel Movements 0 0 (Norma Wheeler MD R1) Result Diagram: 09/16/16 0454 09/16/16 0454 Imaging Last Impressions Upper Extremity Ultrasound 09/14/16 0000 Signed Impressions: Service Date/Time: Wednesday, September 14, 2016 14:21 - CONCLUSION: Superficial thrombosed left cephalic vein associated with the PICC line. Shen Scott MD FACR Lower Extremity Ultrasound 09/14/16 0000 Signed Impressions: Service Date/Time: Wednesday, September 14, 2016 14:02 - CONCLUSION: There is normal compressibility of the deep venous system from the inguinal region to the proximal calf. No echogenic clot is seen in the lumen of the common femoral, femoral, popliteal, and posterior tibial veins. There is a normal response of the venous system to proximal and distal augmentation and respiration. CONCLUSION: Negative for deep venous thrombosis. Shen Scott MD Chest X-Ray 09/13/16 0000 Signed Impressions: Service Date/Time: August 05:15 - CONCLUSION: Mild central pulmonary vascular congestion. Chintan Donovan MD CT Angiography 09/13/16 0000 Signed Impressions: Service Date/Time: August 17:11 - CONCLUSION: Small segmental pulmonary emboli in the left lower lobe. No evidence of main pulmonary artery or lobar pulmonary emboli. Small patchy areas of airspace disease without evidence of segmental or lobar consolidation. Dae Herrera MD Abdomen/Pelvis CT 09/12/16 1234 Signed Impressions: Service Date/Time: Monday, September 12, 2016 18:05 - CONCLUSION: 1. No inflammatory changes are seen within the abdomen or pelvis. Scott Pastor MD Abdomen X-Ray 09/06/16 0000 Signed Impressions: Service Date/Time: August 15:49 - CONCLUSION: 1. Nonspecific bowel gas pattern without evidence for obstruction or free air. Adrian Rendon MD Soft Tissue Ultrasound 08/31/16 0000 Signed Impressions: Service Date/Time: Wednesday, August 31, 2016 21:56 - CONCLUSION: Negative Shashi Mera MD Objective Remarks GENERAL: Patient is obese female in NAD lying in bed. SKIN: Warm and dry. Patient with ostomy bag and wound VAC covering repaired fistula. Seems to have a good seal. Ostomy output is orange-brown in color without evidence of bleeding. Faint erythema left lateral abdomen. HEENT: Normocephalic. Atraumatic. EOMI. No scleral icterus. No injection or drainage. No nasal drainage. Moist mucous membranes. CARDIOVASCULAR: Regular rate and rhythm without murmurs, gallops, or rubs. RESPIRATORY: Clear to auscultation bilaterally without crackles or wheeze. GASTROINTESTINAL: Abdomen obese, bowel sounds normal. Nontender. See skin above. MUSCULOSKELETAL: Mild edema of bilateral lower extremities. No calf tenderness. NEURO: Awake and alert. 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 Medications and IVs Inpatient Medications Acetaminophen (Ofirmev Inj) 1,000 mg Q6H IV Last administered on 09/08/16 05: 44; Start 09/05/16 at 17:30; Stop 09/08/16 at 08:02; Status DC Acetaminophen 650 mg 650 mg Q6HR PRN PO TEMP>101F, PAIN 1-10, HEADACHE Last administered on 09/13/16 12:43; Start 08/30/16 at 14:30 Acetaminophen/ Butalbital/ Caffeine (Fioricet 325-50-40) 1 tab Q6H PRN PO HEADACHE Last administered on 09/12/16 14:01; Start 09/12/16 at 10:45 Acetaminophen/ Hydrocodone Bitart (Maynard 7.5-325 Mg) 1 tab Q4H PRN PO PAIN SCALE 6 TO 10 Last administered on 09/15/16 22:14; Start 07/30/16 at 11:00 Alteplase, Recombinant (Cathflo Activase Inj) 2 mg Q2H PRN INTRACATH OCCLUDED CATHETER Last administered on 09/12/16 07:42; Start 09/03/16 at 07:45 Bisacodyl (Dulcolax Supp) 10 mg ONCE ONCE RECTAL ; Start 09/11/16 at 17:30; Stop 09/11/16 at 17:31; Status DC Calcium Carbonate (Tums Chew) 500 mg ONCE ONCE CHEW Last administered on 02:26; Start 07/29/16 at 01:00; Stop 07/29/16 at 01:01; Status DC Cefepime HCl 2000 mg/Sodium Chloride 100 ml @ 200 mls/hr Q8H IV Last administered on 08/13/16 14:31; Start 07/28/16 at 14:00; Stop 08/13/16 at 15:03 ; Status DC Ceftriaxone Sodium 1000 mg/ Sodium Chloride 100 ml @ 200 mls/hr Q24H IV Last administered on 09/11/16 16:15; Start 09/11/16 at 16:00; Stop 09/12/16 at 14:23 ; Status DC Ceftriaxone Sodium/Sodium Chloride (Rocephin Inj/NS Inj) 100 ml @ 200 mls/hr Q24H IV Last administered on 08/31/16 16:28; Start 08/31/16 at 17:00; Stop at 16:24; Status DC Chlorhexidine Gluconate (Chlorhexidine 2% Cloth) 3 pack UNSCH PRN TOP HYGIENIC CARE; Start 07/28/16 at 23:45; Stop 08/02/16 at 23:47; Status DC Ciprofloxacin/ Dextrose 200 ml @ 200 mls/hr Q12H IV ; Start 09/12/16 at 15:00; Stop 09/12/16 at 17:14; Status DC Ciprofloxacin/ Dextrose (Cipro 400 Mg Premix) 200 ml @ 200 mls/hr Q12H IV Last administered on 08/31/16 11:56; Start 08/23/16 at 14:00; Stop 08/31/16 at 15 :18; Status DC Clotrimazole (Lotrimin 1% Cream) 1 applic Q12HR TOPICAL Last administered on 21:00; Start 08/22/16 at 15:00 Diatrizoate Meglum/ Diatrizoate Sod 18 ml 18 ml ONCE ONCE PO Last administered on 09/12/16 13:45; Start 09/12/16 at 13:15; Stop 09/12/16 at 13:16 ; Status DC Diphenhydramine HCl (Benadryl 2% Cream) 1 applic TID PRN TOPICAL ITCHING Last administered on 09/03/16 09:15; Start 08/24/16 at 14:00 Duloxetine HCl (Cymbalta Dr) 30 mg DAILY PO Last administered on 09/15/16 08: 51; Start 09/01/16 at 11:00 Enoxaparin Sodium (Lovenox Inj) 40 mg Q12HR SQ Last administered on 09/15/16 22:13; Start 09/15/16 at 09:00 Famotidine (Pepcid) 10 mg Q12HR PO Last administered on 09/13/16 09:51; Start 09/11/16 at 21:00; Stop 09/13/16 at 22:19; Status DC Fat Emulsion Intravenous (Liposyn Iii 20% Inj) 250 ml @ 31.25 mls/ hr SuWe@20 IV-CENTRAL Last administered on 09/09/16 19:59; Start 08/15/16 at 20:00; Stop 09/13/16 at 11:08; Status DC Fluconazole (Diflucan) 200 mg DAILY PO Last administered on 09/03/16 09:14; Start 08/28/16 at 09:00; Stop 09/03/16 at 14:01; Status DC Furosemide (Lasix) 20 mg DAILY PO Last administered on 09/15/16 08:51; Start 08/05/16 at 09:00 Furosemide 20 mg 20 mg ONCE ONCE IV PUSH Last administered on 08/02/16 16:57; Start 08/02/16 at 16:30; Stop 08/02/16 at 16:31; Status DC Glycerin (Glycerin Adult Supp) 2 gm BID PRN RECTAL CONSTIPATION; Start at 11:00; Status Hold Heparin Sodium (Porcine) (Heparin Central Flush) See Protocol UNSCH PRN IVF SEE PROTOCOL TABLE Last administered on 09/05/16 03:03; Start 08/15/16 at 14:15 ; Stop 09/16/16 at 07:23; Status DC Heparin Sodium (Porcine) (Heparin Inj) 5,000 units UNSCH PRN IV APTT LESS THAN 25; Start 09/14/16 at 00:15; Stop 09/16/16 at 07:24; Status DC Heparin Sodium (Porcine) 2500 units 2,500 units UNSCH PRN IV APTT 25 TO 39; Start 09/14/16 at 00:15; Stop 09/16/16 at 07:24; Status DC Heparin Sodium/ Dextrose (Heparin-D5W Inj) 250 ml @ 0 mls/hr TITRATE IV ; Start 09/13/16 at 18:15; Stop 09/16/16 at 07:24; Status DC Hydromorphone HCl (Dilaudid Pf Inj) 1 mg MoWeFr PRN IV BREAKTHRU PAIN; Start at 10:30 Insulin Detemir 5 units 5 units Q12HR SQ Last administered on 09/13/16 09:51; Start 09/12/16 at 21:00 IV Flush (NS Flush) See Protocol UNSCH PRN IVF SEE PROTOCOL TABLE; Start at 14:15; Stop 09/16/16 at 07:23; Status DC IV Flush See Protocol UNSCH PRN IVF SEE PROTOCOL TABLE Last administered on 13:47; Start 08/15/16 at 14:15; Stop 09/16/16 at 07:23; Status DC Lactated Ringer's (Lr 1000 ml Inj) 1,000 ml @ 50 mls/hr Q20H IV Last administered on 08/08/16 08:16; Start 08/03/16 at 00:00; Stop 08/08/16 at 10:29; Status DC Lactobacillus Acidophilus (Lactinex) 1 tab TID PO Last administered on 18:36; Start 08/13/16 at 18:00 Lactulose (Lactulose Liq) 30 ml QID PO Last administered on 09/14/16 19:33; Start 09/11/16 at 18:00 Levofloxacin/ Dextrose (Levaquin 750 Mg Premix Inj) 150 ml @ 100 mls/hr ONCE ONCE IV Last administered on 07/28/16 18:14; Start 07/28/16 at 12:30; Stop at 13:59; Status DC Lidocaine/ Epinephrine 10 ml 10 ml ONCE ONCE INFIL ; Start 07/28/16 at 12:15; Stop 07/28/16 at 12:16; Status DC Magnesium Hydroxide (Milk Of Magnesia Liq) 30 ml DAILY PO Last administered on 09/05/16 17:24; Start 09/05/16 at 14:45; Stop 09/08/16 at 11:59; Status DC Metronidazole 100 ml @ 100 mls/hr Q6H IV ; Start 09/12/16 at 16:00; Stop at 17:14; Status DC Metronidazole (Flagyl 500 Mg Inj) 100 ml @ 100 mls/hr Q6H IV Last administered on 08/13/16 14:31; Start 07/28/16 at 14:00; Stop 08/13/16 at 15:04 ; Status DC Miconazole Nitrate (Monistat 7 Vag Cream) 1 appl HS VAGINAL Last administered on 08/06/16 23:05; Start 08/02/16 at 21:00; Stop 08/09/16 at 20:59; Status DC Miscellaneous Information SPECIFIC LAB TO BE THIAGO... ONCE ONCE XX Last administered on 09/16/16 05:31; Start 09/16/16 at 05:45; Stop 09/16/16 at 05:46 ; Status DC Miscellaneous Information (Post-op Orders (for Pharmacy)) STAT ONCE XX ; Start 07/29/16 at 12:15; Stop 07/29/16 at 12:32; Status DC Miscellaneous 1 ea 1 ea UNSCH PRN OTHER SEE LABEL COMMENTS; Start 09/11/16 at 13:45 Morphine Sulfate (Morphine Inj) 2 mg Q3H PRN IV PUSH BREAKTHROUGH PAIN Last administered on 08/05/16 02:35; Start 07/30/16 at 11:00 Morphine Sulfate 4 mg 4 mg Q4HR PRN IV PUSH PAIN SCALE 6 TO 10 Last administered on 07/30/16 04:18; Start 07/28/16 at 13:45; Stop 07/30/16 at 10:36 ; Status DC Multi-Ingredient Ointment (Eucerin Cream) 1 applic Q6H PRN TOPICAL ITCHING Last administered on 09/14/16 11:35; Start 08/24/16 at 14:00 Multivitamins 10 ml/Folic Acid 1 mg/Amino Acids/ Electrolytes/ Dextrose 2,010.2 ml @ 80 mls/hr Q24H IV-CENTRAL Last administered on 09/10/16 20:00; Start at 20:00; Stop 09/11/16 at 14:53; Status DC Naloxone HCl 0.4 mg 0.4 mg UNSCH PRN IV SEE LABEL COMMENTS; Start 07/28/16 at 13:00 Nystatin 1 applic 1 applic Q12HR TOPICAL Last administered on 09/15/16 21:00; Start 08/22/16 at 15:00 Octreotide Acetate (SandoSTATIN INJ) 100 mcg Q8HR IV PUSH Last administered on 09/15/16 14:36; Start 08/23/16 at 22:00 Ondansetron HCl (Zofran Inj) 4 mg Q6HR PRN IV PUSH NAUSEA OR VOMITING Last administered on 09/12/16 12:11; Start 08/28/16 at 16:00 Pantoprazole Sodium (Protonix Inj) 40 mg Q24H IV PUSH Last administered on 08/13 10:30; Start 07/30/16 at 12:00; Stop 08/14/16 at 07:38; Status DC Pantoprazole Sodium (Protonix) 40 mg BID PO Last administered on 09/15/16 22: 14; Start 09/13/16 at 22:30 Pharmacy Profile Note ml @ 0 mls/hr UNSCH XX ; Start 09/12/16 at 17:45 Polyethylene Glycol (Miralax) 17 gm DAILY PO Last administered on 09/15/16 08: 51; Start 09/08/16 at 12:00 Potassium Bicarbonate (Effer-K Eff) 25 meq DAILY PO Last administered on 08:07; Start 08/06/16 at 21:00; Stop 09/10/16 at 10:36; Status DC Pramipexole Dihydrochloride (Mirapex) 0.5 mg HS@2000 PO Last administered on 22:14; Start 08/03/16 at 20:00 Senna/Docusate Sodium (Annette-Colace) 2 tab BID PO Last administered on 22:13; Start 09/08/16 at 21:00 Sodium Polystyrene Sulfonate (Kayexalate Enema) 30 gm ONCE ONCE RECTAL Last administered on 09/12/16 12:45; Start 09/12/16 at 12:45; Stop 09/12/16 at 12:49 ; Status DC Sodium Polystyrene Sulfonate (Kayexalate Liq) 15 gm ONCE ONCE PO Last administered on 09/12/16 17:10; Start 09/12/16 at 14:30; Stop 09/12/16 at 14:31 ; Status DC Sodium Chloride (NS 1000 ml Inj) 1,000 ml @ 84 mls/hr [id number] IV Last administered on 09/16/16 03:18; Start 09/12/16 at 14:30 Sodium Chloride (NS 250 ml Inj) 250 ml @ 15 mls/hr ONCE ONCE IV Last administered on 07/28/16 23:47; Start 07/28/16 at 22:15; Stop 07/29/16 at 14:54 ; Status DC Sodium Chloride (NS 500 ml Inj) 500 ml @ 500 mls/hr BOLUS ONCE IV Last administered on 09/13/16 17:01; Start 09/13/16 at 15:45; Stop 09/13/16 at 16:44 ; Status DC Sodium Chloride/ Sodium Acetate/ Sodium Phosphate/ Magnesium Chloride/Calcium Chloride/ Multivitamins/ Folic Acid/Amino Acids/Dextrose (Sodium Chloride 23.4% Inj/Sodium Acetate Inj/ Sodium Phosphate Inj/Magnesium Chloride Inj/ Calcium Chloride Inj/Mvi-12 Inj/ Folvite Inj/ Clinimix 11/22) 2,064.1437 ml @ 80 mls/hr Q24H IV-CENTRAL Last administered on 09/11/16 22:33; Start 09/11/16 at 20:00; Stop 09/13/16 at 11:08; Status DC Vancomycin HCl 1000 mg/Sodium Chloride 250 ml @ 250 mls/hr Q24H IV ; Start at 15:00; Stop 07/28/16 at 16:46; Status DC Vancomycin HCl 1250 mg/Sodium Chloride 262.5 ml @ 262.5 mls/ hr Q12H IV Last administered on 09/13/16 06:50; Start 09/13/16 at 06:00; Stop 09/13/16 at 11:45 ; Status DC Vancomycin HCl 1500 mg/Sodium Chloride 515 ml @ 257.5 mls/ hr Q18H IV Last administered on 07/31/16 00:36; Start 07/28/16 at 18:00; Stop 07/31/16 at 11:49 ; Status DC Vancomycin HCl 1750 mg/Sodium Chloride 517.5 ml @ 250 mls/hr ONCE ONCE IV Last administered on 09/12/16 18:00; Start 09/12/16 at 18:00; Stop 09/12/16 at 20:04; Status DC Vancomycin HCl/ Sodium Chloride (Vancomycin Inj/ NS 500 ml Inj) 517.5 ml @ 258.75 mls/ hr Q24H IV Last administered on 09/16/16 05:34; Start 09/14/16 at 06:00 Zolpidem Tartrate (Ambien) 5 mg HS PRN PO INSOMNIA Last administered on 23:42; Start 07/30/16 at 21:00 (Norma Wheeler MD R1) Urinary Catheter: No (Norma Wheeler MD R1) Vascular Central Line Catheter: No (Norma Wheeler MD R1) A/P Assessment and Plan 65-year-old female who recently had exploration in [place] with 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 She has had a prolonged hospital stay due to, medications, currently to include resolving sepsis bacteremia and new finding of a left lower lobe pulmonary embolism. Discharge Planning Patient cleared by general surgery for discharge. Physical therapy recommends PT rehabilitation. Discharge held at this time given sepsis bacteremia and left lower lobe PE (Norma Wheeler MD R1) Attending Attestation Patient examined and case discussed with resident physicians I have read the bone agree with assessment/plan as discussed with me I was involved in all medical decision making for this patient Fred Mckinney M.D. (Fred Mckinney MD) Problem List: (1) Gram positive septicemia Status: Acute Plan: Gram positive cocci in 3 out of 4 blood cx. PICC removed on 09/13. Afebrile x 24 hrs. Leukocytosis resolved. Repeat blood culture 09/15, pending Continue Vancomycin 1750 g IV q24h (started 09/12) (2) Pulmonary embolism Status: Acute Plan: Small segmental PE in Left lower lobe, pt with bleeding from left lower quadrant fistula 09/14, now resolved. Heparin gtt not started given bleeding - H&H decrease from 10.3 --> 9.3 noted. No obvious signs of bleeding at this time. On IV fluids so this may be dilutional. Will monitor Per Hematology recs, Lovenox 40 mg q12h monitor for signs of bleeding. Plan to increase to Lovenox 60 mg SQ q12h if tolerating Appreciate Heme recs. (3) Enterocutaneous fistula Status: Acute Plan: General Surgery consulted, have cleared patient for discharge 07/28: Status post incision and drainage and washout of left abdominal wall, with wound vac placement due to small bowel fistula Wound VAC changes at bedside by wound care team -Pain control with Maynard 7.5325 Q4hrs prn pain 610, morphine 2 mg IV q3h prn breakthrough, hold if SBP < 110 or DBP < 60 -Dilaudid when necessary with wound changes -Repeat blood cultures 09/13 secondary to fever show gram-positive cocci in pairs and clusters -Repeat blood culture 09/15 pending Imaging 07/28 - Abdomen/Pelvis CT: Diffuse and extensive subcutaneous emphysema around the abdominal wall from patient's right lateral abdominal wall across midline to left lateral abdominal wall. Fluid collection in anterior left abdominal wall suspicious for subcutaneous abscess. Nonspecific edema throughout subcutaneous tissues. No acute intra-abdominal or pelvic pathology. -Chest x-ray repeated on 09/01 - no acute cardiopulmonary abnormality appreciated -Repeat CT of abdomen and pelvis with IV contrast 09/12 showing overall improvement and no acute changes Prior antibiotics: - Vancomycin, pharm consult (07/28-08/13), restarted 09/12 -- - Cefepime 2gm IV q8h (07/28-08/13) - Flagyl 500 mg IV q6h (07/28-08/13) 09/10/2016: Slight elevation in white blood cells. From 10,000-13,000. We'll continue to monitor. Patient at high risk for wound infection. If stable, anticipate discharge on 09/11/2016. 09/11/2016: WBC elevated to 16.3K, trending upward. Patient without vital sign changes. Initiating sepsis workup. CXR with no acute process. UA showing trace leukocytes, in patient with foul smelling urine. UCx ordered. Rocephin 1g IV q24h x 2 ordered. 09/12/2016: WBC persistently elevated but stable at 16,000. Mildly increased temperatures of 100.2. UA was negative for infection. Chest x-ray no acute process. Rocephin was switched to the antibiotics above. Blood cultures were noted to be positive for gram-positive cocci in pairs and clusters. 09/13/16: patient improved symptomatically, but tachycardia and fever noted today. Will obtain CTA and echocardiogram to rule out PE/cardiac dyskinesis 09/14/16: Bleeding from ostomy site, 20 cc, decrease in Hg from 11.5 --> 10.3. CTA showed small PE in LL Lobe. Symptoms (fevers, chills, hemoptysis) improving. 09/15/16: No further bleeding from the ostomy site. Hg stable at 10.3. Patient having increased Lovenox frequency started this morning, now Lovenox 40 mg sq q12h. Asymptomatic. 09/16/16. No bleeding from ostomy site. Hemoglobin is 9.3. Continue Lovenox 40 mg subQ, heme has been consulted. Patient is clinically improved today. (4) Physical deconditioning Status: Acute Plan: Patient physically deconditioned after staying in bed for extended period of time. Nursing order to get patient out of bed at least 3 times a day as tolerated with assistance -PT recommends PT at rehabilitation. -Continue PT workouts while inpatient (5) Urinary tract infection Status: Resolved Plan: Resolved. Abx history: Rocephin 08/31-09/01 Ciprofloxacin 08/23-08/31 Vanc 09/11-present (6) Anemia Status: Chronic Plan: -Hemoglobin has downtrending from 10.3 to 9.3 over 24 hours. She is on IV fluids at approximately half maintenance. - Continue to monitor - Iron panel significant for anemia of chronic disease - B12 and Folate both elevated (7) Skin rash Status: Resolved Plan: Rash improved - Completed 7 day course of fluconazole on 09/03 Nystatin powder for groin, axilla, area under breasts, and skin folds Clotrimazole cream for back of neck (8) Depression Status: Chronic Plan: -Continue home Cymbalta 30 mg by mouth daily (9) Lower extremity edema Status: Resolved Plan: Resolved Patient with no pitting edema of bilateral lower extremities on exam. - SCDs - 20 mg Lasix po daily, 25 meq potassium (10) Nutrition, metabolism, and development symptoms Status: Acute Plan: Fluids: NS at 82 ml/hr. Electrolytes: Monitor and replete as needed Nutrition: By mouth regular diet. DVT PPX: SCDs and Lovenox; risk of DVT and PE greater than risk for chronic wound bleeding GI PPX: Pantoprazole BID. wdw Dr. Mckinney. (Norma Wheeler MD R1) Problem Qualifiers (1) Pulmonary embolism: Qualified Code: I26.99 - Other acute pulmonary embolism without acute cor pulmonale (2) Urinary tract infection: Qualified Code: N30.01 - Acute cystitis with hematuria (3) Anemia: Qualified Code: D64.9 - Anemia, unspecified type (4) Depression: Qualified Code: F33.9 - Recurrent major depressive disorder, remission status unspecified (5) Lower extremity edema: Qualified Code: R60.0 - Bilateral edema of lower extremity Norma Wheeler MD R1 Sep 16, 2016 08:14 Fred Mckinney MD Sep 16, 2016 11:20
[2016-09-16] MEDS: SODIUM CHLORIDE 0.9% FLUSH 5 ML FLUSH IVF SCH ×2 (09:00→20:15)
[2016-09-16] MEDS: INSULIN DETEMIR 100 UNITS/ML VIAL SQ SCH ×2 (09:00→20:15)
[2016-09-16] MEDS: LACTULOSE SYRUP 20 GM/30 ML CUP PO SCH ×4 (09:00→20:15)
--- NOTE | 2016-09-16 09:14 | PD.ONC.PN ---
Subjective Subjective Remarks Afebrile overnight. Patient denies any bleeding and per nurse there has been no blood in ostomy output. Denies pain. Objective Data Date Time Temp Pulse Resp B/P Pulse Ox O2 Delivery O2 Flow Rate FiO2 09/16/16 08:00 97.0 82 18 101/53 98 09/16/16 00:00 97.6 87 20 98/55 96 09/16/16 00:00 16 09/15/16 20:00 97.0 84 18 98/55 97 09/15/16 16:00 98.2 93 20 92/51 96 09/15/16 12:00 99.2 97 20 91/54 99 Result Diagram: 09/16/16 0454 09/16/16 0454 Laboratory Results Laboratory Tests Test 09/16/16 04:54 White Blood Count 6.8 TH/MM3 Red Blood Count 3.49 MIL/MM3 Hemoglobin 9.3 GM/DL Hematocrit 29.0 % Mean Corpuscular Volume 83.1 FL Mean Corpuscular Hemoglobin 26.7 PG Mean Corpuscular Hemoglobin 32.1 % Concent Red Cell Distribution Width 16.9 % Platelet Count 290 TH/MM3 Mean Platelet Volume 7.5 FL Neutrophils (%) (Auto) 67.9 % Lymphocytes (%) (Auto) 18.4 % Monocytes (%) (Auto) 9.4 % Eosinophils (%) (Auto) 4.0 % Basophils (%) (Auto) 0.3 % Neutrophils # (Auto) 4.6 TH/MM3 Lymphocytes # (Auto) 1.3 TH/MM3 Monocytes # (Auto) 0.6 TH/MM3 Eosinophils # (Auto) 0.3 TH/MM3 Basophils # (Auto) 0.0 TH/MM3 CBC Comment DIFF FINAL Differential Comment Sodium Level 138 MEQ/L Potassium Level 4.2 MEQ/L Chloride Level 109 MEQ/L Carbon Dioxide Level 20.5 MEQ/L Anion Gap 9 MEQ/L Blood Urea Nitrogen 19 MG/DL Creatinine 0.72 MG/DL Estimat Glomerular Filtration 81 ML/MIN Rate Random Glucose 105 MG/DL Calcium Level 8.8 MG/DL Vancomycin Level Trough 13.6 MCG/ML Culture Results Microbiology Date/Time Procedure Status Source Growth 09/13/16 20:15 Stool Occult Blood (FABIEN) - Final Complete Stool Stool HEMOCCULT POSITIVE 09/15/16 13:25 Aerobic Blood Culture Received Blood Peripheral Pending 09/15/16 13:25 Anaerobic Blood Culture Received Blood Peripheral Pending 09/15/16 13:30 Aerobic Blood Culture Received Blood Peripheral Pending 09/15/16 13:30 Anaerobic Blood Culture Received Blood Peripheral Pending Imaging Studies Last Impressions Upper Extremity Ultrasound 09/14/16 0000 Signed Impressions: Service Date/Time: Wednesday, September 14, 2016 14:21 - CONCLUSION: Superficial thrombosed left cephalic vein associated with the PICC line. Shen Scott MD FACR Lower Extremity Ultrasound 09/14/16 0000 Signed Impressions: Service Date/Time: Wednesday, September 14, 2016 14:02 - CONCLUSION: There is normal compressibility of the deep venous system from the inguinal region to the proximal calf. No echogenic clot is seen in the lumen of the common femoral, femoral, popliteal, and posterior tibial veins. There is a normal response of the venous system to proximal and distal augmentation and respiration. MD CONCLUSION: Negative for deep venous thrombosis. Shen Scott MD Chest X-Ray 09/13/16 0000 Signed Impressions: Service Date/Time: August 05:15 - CONCLUSION: Mild central pulmonary vascular congestion. Chintan Donovan MD CT Angiography 09/13/16 0000 Signed Impressions: Service Date/Time: August 17:11 - CONCLUSION: Small segmental pulmonary emboli in the left lower lobe. No evidence of main pulmonary artery or lobar pulmonary emboli. Small patchy areas of airspace disease without evidence of segmental or lobar consolidation. Dae Herrera MD Abdomen/Pelvis CT 09/12/16 1234 Signed Impressions: Service Date/Time: Monday, September 12, 2016 18:05 - CONCLUSION: 1. No inflammatory changes are seen within the abdomen or pelvis. Scott Patsor MD Abdomen X-Ray 09/06/16 0000 Signed Impressions: Service Date/Time: August 15:49 - CONCLUSION: 1. Nonspecific bowel gas pattern without evidence for obstruction or free air. Adrian Rendon MD Soft Tissue Ultrasound 08/31/16 0000 Signed Impressions: Service Date/Time: Wednesday, August 31, 2016 21:56 - CONCLUSION: Negative Shashi Mera MD Administered Medications Medications (Trade) Dose Ordered Sig/Johnie Route PRN Reason Start Time Stop Time Status Last Admin Dose Admin Miscellaneous Information Patient in critical care unit? Ass... Q361D XX 07/28/16 23:45 07/28/16 23:45 IV Flush (NS Flush) 2 ml UNSCH PRN IVF FLUSH AFTER USING IV ACCESS 07/29/16 12:15 09/07/16 09:57 IV Flush (NS Flush) 2 ml BID IVF 07/29/16 21:00 09/14/16 21:40 Acetaminophen/ Hydrocodone Bitart ([place] 7.5-325 Mg) 1 tab Q4H PRN PO PAIN SCALE 6 TO 10 07/30/16 11:00 09/15/16 22:14 Morphine Sulfate (Morphine Inj) 2 mg Q3H PRN IV PUSH BREAKTHROUGH PAIN 07/30/16 11:00 08/05/16 02:35 Zolpidem Tartrate (Ambien) 5 mg HS PRN PO INSOMNIA 07/30/16 21:00 09/15/16 23:42 Pramipexole Dihydrochloride (Mirapex) 0.5 mg HS@2000 PO 08/03/16 20:00 09/15/16 22:14 Furosemide (Lasix) 20 mg DAILY PO 08/05/16 09:00 09/15/16 08:51 Lactobacillus Acidophilus (Lactinex) 1 tab TID PO 08/13/16 18:00 09/15/16 18:36 Hydromorphone HCl (Dilaudid Pf Inj) 1 mg MoWeFr PRN IV DRESSING CHANGES 08/15/16 10:30 08/28/16 21:58 Bisacodyl (Dulcolax Supp) 10 mg DAILY PRN RECTAL constipation 08/17/16 11:00 09/08/16 12:11 Clotrimazole (Lotrimin 1% Cream) 1 applic Q12HR TOPICAL 08/22/16 15:00 09/15/16 21:00 Nystatin (Mycostatin Powder) 1 applic Q12HR TOPICAL 08/22/16 15:00 09/15/16 21:00 Octreotide Acetate (SandoSTATIN INJ) 100 mcg Q8HR IV PUSH 08/23/16 22:00 09/15/16 14:36 Multi-Ingredient Ointment (Eucerin Cream) 1 applic Q6H PRN TOPICAL ITCHING 08/24/16 14:00 09/14/16 11:35 Diphenhydramine HCl (Benadryl 2% Cream) 1 applic TID PRN TOPICAL ITCHING 08/24/16 14:00 09/03/16 09:15 Ondansetron HCl (Zofran Inj) 4 mg Q6HR PRN IV PUSH NAUSEA OR VOMITING 08/28/16 16:00 09/12/16 12:11 Acetaminophen (Tylenol) 650 mg Q6HR PRN PO TEMP>101F, PAIN 1-10, HEADACHE 08/30/16 14:30 09/13/16 12:43 Duloxetine HCl (Cymbalta Dr) 30 mg DAILY PO 09/01/16 11:00 09/15/16 08:51 Alteplase, Recombinant (Cathflo Activase Inj) 2 mg Q2H PRN INTRACATH OCCLUDED CATHETER 09/03/16 07:45 09/12/16 07:42 Senna/Docusate Sodium (Annette-Colace) 2 tab BID PO 09/08/16 21:00 09/15/16 22:13 Polyethylene Glycol (Miralax) 17 gm DAILY PO 09/08/16 12:00 09/15/16 08:51 Lactulose (Lactulose Liq) 30 ml QID PO 09/11/16 18:00 09/14/16 19:33 Acetaminophen/ Butalbital/ Caffeine 1 tab 1 tab Q6H PRN PO HEADACHE 09/12/16 10:45 09/12/16 14:01 Sodium Chloride (NS 1000 ml Inj) 1,000 ml @ 84 mls/hr [id number] IV 09/12/16 14:30 09/16/16 03:18 Insulin Detemir 5 units 5 units Q12HR SQ 09/12/16 21:00 09/13/16 09:51 Vancomycin HCl/ Sodium Chloride (Vancomycin Inj/ NS 500 ml Inj) 517.5 ml @ 258.75 mls/ hr Q24H IV 09/14/16 06:00 09/16/16 05:34 Pantoprazole Sodium (Protonix) 40 mg BID PO 09/13/16 22:30 09/15/16 22:14 Enoxaparin Sodium (Lovenox Inj) 40 mg Q12HR SQ 09/15/16 09:00 09/15/16 22:13 Objective Remarks GENERAL: Pleasant obese female, lying supine in bed in nad. SKIN: Warm and dry. HEAD: Normocephalic. EYES: No injection or drainage. NECK: Supple, trachea midline. CARDIOVASCULAR: Regular rate and rhythm RESPIRATORY: Breath sounds equal bilaterally. No accessory muscle use. GASTROINTESTINAL: Abdomen soft, obese. left lower quadrant with ostomy bag in place with soft brown stool. wound vac in center of abdomen. no bleeding. EXTREMITIES: No cyanosis. no edema. NEUROLOGICAL: awake and alert, normal speech. moving extremities. Assessment/Plan Problem List: (1) Pulmonary embolism Status: Acute Plan: 09/16: slight decrease in hemoglobin with no obvious bleeding. would continue current dose of Lovenox and check H/H at noon. If there is further evidence of fall or bleeding, would reduce or d/c Lovenox 09/15 --increased to Lovenox 40mg SQ BID 08/13-09/14: on Lovenox 40mg SQ daily 09/13: CTA shows PE Assessment 65y/o female with competing needs of PE vs. intermittently bleeding colocutaneous fistula. (History from initial consult) Ms. Menard is a 65-year-old female who has been hospitalized at this facility since late July 2016. The patient was admitted initially due to swelling and pain involving her abdomen, specifically in the left lower quadrant. She has a history of multiple abdominal surgeries including gastric bypass as well as multiple surgeries for abdominal wall hernias and fistula repair. It is apparent based on clinical exam that shortly after her admission she was noted to have a large abscess involving the abdominal wall. She underwent incision and drainage of this. The first surgery was performed on 08/02/2016. She subsequently underwent extensive debridement of necrotic tissue and was found to have a fistula tract going into the colon. A wound vac was placed and she was initiated on antibiotics. Over the course of this hospitalization she has had multiple surgical dbridements. 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 In fact most of her stools are coming out of the colocutaneous fistula. For management of her antibiotics she did have a left upper extremity PICC line placed. The PICC line was removed on 09/14/2015 and the patient reports noting immediate onset difficulty breathing. CT angiogram was done which revealed a subsegmental pulmonary emboli involving the left lower lobe. She was initiated on anticoagulation. However, she was noted to have increased bleeding from the fistula site, the bleeding was described as red blood. Subsequent ultrasound Doppler studies of the upper and lower extremities indicated no evidence of lower extremity deep venous thromboses but she was found to have a superficial venous thrombosis involving the left cephalic vein (ipsilateral to the PICC line). Attending Statement DEnies any bleeding. H/H stable . HG 9.3 in am and 9.5 in PM. continue lovenox. will follow. The exam, history, and the medical decision-making described in the above note were completed with the assistance of the mid-level provider. I reviewed and agree with the findings presented. I attest that I had a [id number] encounter with the patient on the same day, and personally performed and documented my assessment and findings in the medical record. Problem Qualifiers (1) Pulmonary embolism: Qualified Code: I26.99 - Other acute pulmonary embolism without acute cor pulmonale Ana Butt Sep 16, 2016 09:14 Ulisses Sears MD Sep 16, 2016 19:14
[2016-09-16] MEDS: FUROSEMIDE 20 MG TAB PO SCH (09:34)
[2016-09-16] MEDS: ENOXAPARIN SODIUM 40 MG/0.4 ML SYRINGE SQ SCH ×2 (09:35→20:13)
[2016-09-16] MEDS: ACETAMINOPHEN/HYDROcodone 325 MG/7.5 MG TAB PO PRN ×3 (09:35→22:36)
[2016-09-16] MEDS: DOCUSATE SODIUM 50 MG/SENNA 8.6 MG TAB PO SCH ×2 (09:35→20:12)
[2016-09-16] MEDS: PANTOPRAZOLE SOD 40 MG DELAYED RELEASE TAB PO SCH ×2 (09:35→20:13)
[2016-09-16] MEDS: POLYETHYLENE GLYCOL 17 GM PKG PO SCH (09:35)
[2016-09-16] MEDS: DULoxetine HCl DR 30 MG CAP PO SCH (09:35)
[2016-09-16] MEDS: LACTOBACILLUS ACIDOPHILUS TAB PO SCH ×3 (09:35→18:06)
[2016-09-16] MEDS: NYSTATIN 100,000 U/GM PWD 15 GM BTL TOPICAL SCH ×2 (09:36→20:16)
[2016-09-16] MEDS: CLOTRIMAZOLE 1% CREAM 15 GM TOPICAL SCH ×2 (09:36→20:16)
[2016-09-16 12:00] VITALS: BP 113/57; PULSE 85; RESP 20; TEMP 96.7; O2SAT 98
[2016-09-16 13:13] LABS: REVIEW FLAG FINAL
[2016-09-16] MEDS: IRON SUCROSE INJ 200 MG in SODIUM CHLORIDE 0.9% INJ 100 ML IV SCH (15:04)
[2016-09-16 16:00] VITALS: BP 94/52; PULSE 96; RESP 20; TEMP 95.5; O2SAT 96
[2016-09-16] MEDS: PRAMIPEXOLE DIHYDROCHLORIDE 0.25 MG TAB PO SCH (20:13)
[2016-09-16 20:20] VITALS: BP 114/59; PULSE 80; RESP 18; TEMP 96.9; O2SAT 96
[2016-09-16] MEDS: ZOLPIDEM TARTRATE 5 MG TAB PO PRN (22:35)
[2016-09-16 23:55] VITALS: BP 99/50; PULSE 90; RESP 18; TEMP 97.5; O2SAT 98
[2016-09-17] MEDS: SODIUM CHLOR 0.9% 1000 ML INJ 1,000 ML IV SCH ×2 (01:45→13:58)
[2016-09-17] MEDS: OCTREOTIDE INJ 100 MCG/ML VIAL IV PUSH SCH ×3 (05:09→20:44)
[2016-09-17] MEDS: VANCOMYCIN INJ 1,750 MG in SODIUM CHLORID 0.9% 500 ML INJ 500 ML IV SCH (05:09)
[2016-09-17 05:17] LABS: AUTOMATED NEUTROPHIL # 4.2 TH/MM3 (1.8-7.7); BASOPHIL % 0.5 % (0.0-2.0); EOSINOPHIL # 0.2 TH/MM3 (0-0.4); EOSINOPHIL % 3.4 % (0.0-4.0); HEMATOCRIT 29.5 % (35.0-46.0); HEMO FLAGS DIFF FINAL; LYMPH % 20.5 % (9.0-44.0); LYMPHOCYTE # 1.3 TH/MM3 (1.0-4.8); MEAN CELL VOLUME 82.1 FL (80.0-100.0); MEAN CORPUSCULAR HEMOGLOBIN 26.9 PG (27.0-34.0); MEAN CORPUSCULAR HGB CONC 32.7 % (32.0-36.0); MONO % 9.6 % (0.0-8.0); PLATELET COUNT 331 TH/MM3 (150-450); RED BLOOD COUNT 3.59 MIL/MM3 (4.00-5.30); RED CELL DISTRIBUTION WIDTH 17.3 % (11.6-17.2); WHITE BLOOD COUNT 6.4 TH/MM3 (4.0-11.0)
[2016-09-17] MEDS: SODIUM CHLORIDE 0.9% FLUSH 5 ML FLUSH IVF SCH ×2 (07:45→20:43)
--- NOTE | 2016-09-17 07:57 | PD.ONC.PN ---
Subjective Subjective Remarks Mrs. Washington denies acute complaints, she in fact tells me she feels somewhat better today as compared to 2 days ago. She specifically reports improvement in her breathing. She denies having had overt bleeding. She tells me she has not moved her bowels rectally in over a week and a half now, her bowel movements are coming out of the colocutaneous fistula in the left lower quadrant. She denies fevers or chills. She wants to get up out of bed so she can begin rehabilitation. Objective Data Date Time Temp Pulse Resp B/P Pulse Ox O2 Delivery O2 Flow Rate FiO2 09/16/16 23:55 97.5 90 18 99/50 98 09/16/16 20:20 96.9 80 18 114/59 96 09/16/16 16:00 95.5 96 20 94/52 96 09/16/16 12:00 96.7 85 20 113/57 98 09/16/16 08:00 97.0 82 18 101/53 98 09/17/16 09/17/16 09/17/16 07:00 15:00 23:00 Intake Total 978 ml Output Total 1075 ml Balance -97 ml Result Diagram: 09/17/16 0420 09/16/16 0454 Laboratory Results Laboratory Tests Test 09/16/16 09/17/16 12:45 04:20 Hemoglobin 9.5 GM/DL 9.6 GM/DL Hematocrit 29.0 % 29.5 % White Blood Count 6.4 TH/MM3 Red Blood Count 3.59 MIL/MM3 Mean Corpuscular Volume 82.1 FL Mean Corpuscular Hemoglobin 26.9 PG Mean Corpuscular Hemoglobin 32.7 % Concent Red Cell Distribution Width 17.3 % Platelet Count 331 TH/MM3 Mean Platelet Volume 7.2 FL Neutrophils (%) (Auto) 66.0 % Lymphocytes (%) (Auto) 20.5 % Monocytes (%) (Auto) 9.6 % Eosinophils (%) (Auto) 3.4 % Basophils (%) (Auto) 0.5 % Neutrophils # (Auto) 4.2 TH/MM3 Lymphocytes # (Auto) 1.3 TH/MM3 Monocytes # (Auto) 0.6 TH/MM3 Eosinophils # (Auto) 0.2 TH/MM3 Basophils # (Auto) 0.0 TH/MM3 CBC Comment DIFF FINAL Differential Comment Culture Results Microbiology Date/Time Procedure Status Source Growth 09/15/16 13:25 Aerobic Blood Culture - Preliminary Resulted Blood Peripheral NO GROWTH IN 1 DAY 09/15/16 13:25 Anaerobic Blood Culture - Preliminary Resulted Blood Peripheral NO GROWTH IN 1 DAY 09/15/16 13:30 Aerobic Blood Culture - Preliminary Resulted Blood Peripheral NO GROWTH IN 1 DAY 09/15/16 13:30 Anaerobic Blood Culture - Preliminary Resulted Blood Peripheral NO GROWTH IN 1 DAY Administered Medications Medications (Trade) Dose Ordered Sig/Johnie Route PRN Reason Start Time Stop Time Status Last Admin Dose Admin Miscellaneous Information Patient in critical care unit? Ass... Q361D XX 07/28/16 23:45 07/28/16 23:45 IV Flush (NS Flush) 2 ml UNSCH PRN IVF FLUSH AFTER USING IV ACCESS 07/29/16 12:15 09/07/16 09:57 IV Flush (NS Flush) 2 ml BID IVF 07/29/16 21:00 09/14/16 21:40 Acetaminophen/ Hydrocodone Bitart ([place] 7.5-325 Mg) 1 tab Q4H PRN PO PAIN SCALE 6 TO 10 07/30/16 11:00 09/16/16 22:36 Morphine Sulfate (Morphine Inj) 2 mg Q3H PRN IV PUSH BREAKTHROUGH PAIN 07/30/16 11:00 08/05/16 02:35 Zolpidem Tartrate (Ambien) 5 mg HS PRN PO INSOMNIA 07/30/16 21:00 09/16/16 22:35 Pramipexole Dihydrochloride (Mirapex) 0.5 mg HS@2000 PO 08/03/16 20:00 09/16/16 20:13 Furosemide (Lasix) 20 mg DAILY PO 08/05/16 09:00 09/16/16 09:34 Lactobacillus Acidophilus (Lactinex) 1 tab TID PO 08/13/16 18:00 09/16/16 18:06 Hydromorphone HCl (Dilaudid Pf Inj) 1 mg MoWeFr PRN IV DRESSING CHANGES 08/15/16 10:30 08/28/16 21:58 Bisacodyl (Dulcolax Supp) 10 mg DAILY PRN RECTAL constipation 08/17/16 11:00 09/08/16 12:11 Clotrimazole (Lotrimin 1% Cream) 1 applic Q12HR TOPICAL 08/22/16 15:00 09/16/16 20:16 Nystatin (Mycostatin Powder) 1 applic Q12HR TOPICAL 08/22/16 15:00 09/16/16 20:16 Octreotide Acetate (SandoSTATIN INJ) 100 mcg Q8HR IV PUSH 08/23/16 22:00 09/17/16 05:09 Multi-Ingredient Ointment (Eucerin Cream) 1 applic Q6H PRN TOPICAL ITCHING 08/24/16 14:00 09/14/16 11:35 Diphenhydramine HCl (Benadryl 2% Cream) 1 applic TID PRN TOPICAL ITCHING 08/24/16 14:00 09/03/16 09:15 Ondansetron HCl (Zofran Inj) 4 mg Q6HR PRN IV PUSH NAUSEA OR VOMITING 08/28/16 16:00 09/12/16 12:11 Acetaminophen (Tylenol) 650 mg Q6HR PRN PO TEMP>101F, PAIN 1-10, HEADACHE 08/30/16 14:30 09/13/16 12:43 Duloxetine HCl (Cymbalta Dr) 30 mg DAILY PO 09/01/16 11:00 09/16/16 09:35 Alteplase, Recombinant (Cathflo Activase Inj) 2 mg Q2H PRN INTRACATH OCCLUDED CATHETER 09/03/16 07:45 09/12/16 07:42 Senna/Docusate Sodium (Annette-Colace) 2 tab BID PO 09/08/16 21:00 09/16/16 20:12 Polyethylene Glycol (Miralax) 17 gm DAILY PO 09/08/16 12:00 09/16/16 09:35 Lactulose (Lactulose Liq) 30 ml QID PO 09/11/16 18:00 09/14/16 19:33 Acetaminophen/ Butalbital/ Caffeine 1 tab 1 tab Q6H PRN PO HEADACHE 09/12/16 10:45 09/12/16 14:01 Sodium Chloride (NS 1000 ml Inj) 1,000 ml @ 84 mls/hr [id number] IV 09/12/16 14:30 09/17/16 01:45 Insulin Detemir 5 units 5 units Q12HR SQ 09/12/16 21:00 09/13/16 09:51 Vancomycin HCl/ Sodium Chloride (Vancomycin Inj/ NS 500 ml Inj) 517.5 ml @ 258.75 mls/ hr Q24H IV 09/14/16 06:00 09/17/16 05:09 Pantoprazole Sodium (Protonix) 40 mg BID PO 09/13/16 22:30 09/16/16 20:13 Enoxaparin Sodium 40 mg 40 mg Q12HR SQ 09/15/16 09:00 09/16/16 20:13 Iron Sucrose/ Sodium Chloride (Venofer Inj/NS Inj) 110 ml @ 110 mls/hr Q24H IV 09/16/16 14:00 09/18/16 14:59 09/16/16 15:04 Objective Remarks GENERAL APPEARANCE: Ms. Menard is a pleasant appearing elderly female, she is laying in bed, she appears to be no acute distress. HEAD, EYES, EARS, NOSE, AND THROAT: Head atraumatic, normocephalic, conjunctive are mildly pale sclerae are anicteric, Extraocular muscles intact, Pupils equal, round, reactive to light and accommodation, oral exam no pharyngeal erythema. NECK: Neck exam no palpable cervical or supraclavicular lymphadenopathy. RESPIRATORY EXAMINATION: Good air movement bilaterally. No added breath sounds. CARDIOVASCULAR SYSTEM: Regular rate and rhythm, S1-S2. No obvious murmurs, gallops. ABDOMEN: Obese belly, she has a wound vac in the epigastric area. She has a large ostomy bag over the left lower quadrant containing fecal matter, no active bleeding in there. 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 The abdomen is otherwise nontender. Positive bowel sounds. LOWER EXTREMITIES: Severe muscle atrophy, no pretibial edema. No calf tenderness. CENTRAL NERVOUS SYSTEM: No focal sensory motor deficits. Assessment/Plan Problem List: (1) Pulmonary embolism Status: Acute Plan: 09/17/2016: Lovenox dosing increased to 60 mg subcutaneous every 12 hours. 09/16: slight decrease in hemoglobin with no obvious bleeding. would continue current dose of Lovenox and check H/H at noon. If there is further evidence of fall or bleeding, would reduce or d/c Lovenox. 09/15 --increased to Lovenox 40mg SQ BID 08/13-09/14: on Lovenox 40mg SQ daily 3/16: CTA shows PE. (2) Anemia Status: Acute Plan: There was gross blood noted at the site of the colocutaneous fistula. She was initiated on iron sucrose infusions on 09/16/2016. Her hemoglobin has stabilized over the past 24-48 hours. Assessment 65y/o female with competing needs of PE vs. intermittently bleeding colocutaneous fistula. (History from initial consult) Ms. Menard is a 65-year-old female who has been hospitalized at this facility since late July 2016. The patient was admitted initially due to swelling and pain involving her abdomen, specifically in the left lower quadrant. She has a history of multiple abdominal surgeries including gastric bypass as well as multiple surgeries for abdominal wall hernias and fistula repair. It is apparent based on clinical exam that shortly after her admission she was noted to have a large abscess involving the abdominal wall. She underwent incision and drainage of this. The first surgery was performed on 08/02/2016. She subsequently underwent extensive debridement of necrotic tissue and was found to have a fistula tract going into the colon. A wound vac was placed and she was initiated on antibiotics. Over the course of this hospitalization she has had multiple surgical dbridements. 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 In fact most of her stools are coming out of the colocutaneous fistula. For management of her antibiotics she did have a left upper extremity PICC line placed. The PICC line was removed on 09/14/2015 and the patient reports noting immediate onset difficulty breathing. CT angiogram was done which revealed a subsegmental pulmonary emboli involving the left lower lobe. She was initiated on anticoagulation. However, she was noted to have increased bleeding from the fistula site, the bleeding was described as red blood. Subsequent ultrasound Doppler studies of the upper and lower extremities indicated no evidence of lower extremity deep venous thromboses but she was found to have a superficial venous thrombosis involving the left cephalic vein (ipsilateral to the PICC line). Plan 1. Subsegmental pulmonary emboli involving the left lower lobe distribution: Increase dosing of Lovenox to 60 mg subcutaneous every 12 hours. Put Lovenox on hold should overt bleeding being noted. 2. Anemia: Iron sucrose 200 mg IV every 24 hours 3 doses. Monitor for signs of overt bleeding. Problem Qualifiers (1) Pulmonary embolism: Qualified Code: I26.99 - Other acute pulmonary embolism without acute cor pulmonale (2) Anemia: Richardson,Pj MD Sep 17, 2016 07:57
[2016-09-17 08:00] VITALS: BP 116/57; PULSE 85; RESP 17; TEMP 95.4; O2SAT 97
[2016-09-17] MEDS: LACTULOSE SYRUP 20 GM/30 ML CUP PO SCH ×4 (09:10→20:45)
[2016-09-17] MEDS: NYSTATIN 100,000 U/GM PWD 15 GM BTL TOPICAL SCH ×2 (09:13→20:44)
[2016-09-17] MEDS: CLOTRIMAZOLE 1% CREAM 15 GM TOPICAL SCH ×2 (09:13→20:44)
[2016-09-17] MEDS: DULoxetine HCl DR 30 MG CAP PO SCH (09:14)
[2016-09-17] MEDS: FUROSEMIDE 20 MG TAB PO SCH (09:14)
[2016-09-17] MEDS: INSULIN DETEMIR 100 UNITS/ML VIAL SQ SCH ×2 (09:14→22:00)
[2016-09-17] MEDS: LACTOBACILLUS ACIDOPHILUS TAB PO SCH ×3 (09:14→17:52)
[2016-09-17] MEDS: PANTOPRAZOLE SOD 40 MG DELAYED RELEASE TAB PO SCH ×2 (09:14→20:44)
[2016-09-17] MEDS: POLYETHYLENE GLYCOL 17 GM PKG PO SCH (09:14)
[2016-09-17] MEDS: DOCUSATE SODIUM 50 MG/SENNA 8.6 MG TAB PO SCH ×2 (09:14→20:44)
[2016-09-17] MEDS: ENOXAPARIN SODIUM 60 MG/0.6 ML SYRINGE SQ SCH ×2 (09:14→20:44)
[2016-09-17] MEDS: ACETAMINOPHEN/HYDROcodone 325 MG/7.5 MG TAB PO PRN ×3 (09:20→20:45)
--- NOTE | 2016-09-17 10:15 | HHI.FPPN ---
Subjective Remarks Feeling "good" today. Denies any recurrent fevers or chills. Denies having BM from rectum, but says that she is having fecal material through her fistula in LLQ. Says that it was a pellet about 1 inch round. The bag was changed on 09/16. She is tolerating whole meals. Denies SOB or hemoptysis. No new pain behind either leg. 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 AFVSS. (Brett Beth MD R2) Objective Vitals Vital Signs Date Time Temp Pulse Resp B/P Pulse Ox O2 Delivery O2 Flow Rate FiO2 09/17/16 08:00 95.4 85 17 116/57 97 09/16/16 23:55 97.5 90 18 99/50 98 09/16/16 20:20 96.9 80 18 114/59 96 09/16/16 16:00 95.5 96 20 94/52 96 09/16/16 12:00 96.7 85 20 113/57 98 I/O 09/16/16 09/16/16 09/16/16 09/17/16 09/17/16 09/17/16 07:00 15:00 23:00 07:00 15:00 23:00 Intake Total 855 ml 1800 ml 1623 ml 978 ml Output Total 0 ml 850 ml 1075 ml Balance 855 ml 950 ml 1623 ml -97 ml Intake Oral 240 ml 1800 ml 240 ml IV Total 615 ml 1623 ml 738 ml Drainage Total 0 ml 850 ml 1075 ml # Voids 3 5 3 # Bowel Movements 0 0 (Brett Beth MD R2) Result Diagram: 09/17/16 0420 09/16/16 0454 Objective Remarks GENERAL: Patient is obese female in NAD lying in bed. SKIN: Warm and dry. Patient with ostomy bag and wound VAC covering repaired fistula. Seems to have a good seal. Ostomy output is orange-brown in color without evidence of bleeding. Faint erythema left lateral abdomen. HEENT: Normocephalic. Atraumatic. EOMI. No scleral icterus. No injection or drainage. No nasal drainage. Moist mucous membranes. CARDIOVASCULAR: Regular rate and rhythm without murmurs, gallops, or rubs. RESPIRATORY: Clear to auscultation bilaterally without crackles or wheeze. GASTROINTESTINAL: Abdomen obese, bowel sounds normal. Nontender. See skin above. MUSCULOSKELETAL: Mild edema of bilateral lower extremities. No calf tenderness. NEURO: Awake and alert. 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 RECORDS ASSISTANT grossly intact. 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 She has had a prolonged hospital stay due to recurrent sepsis bacteremia and new finding of a left lower lobe pulmonary embolism. Discharge Planning Patient cleared by general surgery for discharge. Physical therapy recommends PT rehabilitation. Discharge held at this time given sepsis bacteremia and left lower lobe PE (Brett Beth MD R2) Attending Attestation Pt. examined and case discussed with resident physician I have read the above note and agree with the assessment/plan as discussed with me I was involved in all medical decision making for this patient Fred Mckinney MD (Fred Mckinney MD) Problem List: (1) Gram positive septicemia Status: Acute Plan: Gram positive cocci in 3 out of 4 blood cx. PICC removed on 09/13. Afebrile x 24 hrs. Leukocytosis resolved. Repeat blood culture 09/15, no growth x 1 day. Continue Vancomycin 1750 g IV q24h (started 09/12). ID rec Vanc for 5-7 days tx since removal of PICC line, if negative BCx at that time, no further tx or workup. End date would be 09/18-09/20. (2) Pulmonary embolism Status: Acute Plan: Small segmental PE in Left lower lobe, pt with bleeding from left lower quadrant fistula 09/14, now resolved. Heparin gtt not started given bleeding - H&H decrease from 10.3 --> 9.3 noted. No obvious signs of bleeding at this time. On IV fluids so this may be dilutional. Has been stable 09/17. Per Hematology recs, Lovenox 60 mg q12h monitor for signs of bleeding. Appreciate Heme recs. (3) Enterocutaneous fistula Status: Acute Plan: General Surgery consulted, have cleared patient for discharge. 07/28: Status post incision and drainage and washout of left abdominal wall, with wound vac placement due to small bowel fistula Wound VAC changes at bedside by wound care team -Pain control with Erin 7.5325 Q4hrs prn pain 610, morphine 2 mg IV q3h prn breakthrough, hold if SBP < 110 or DBP < 60 -Dilaudid when necessary with wound changes -Repeat blood cultures 09/13 secondary to fever show gram-positive cocci in pairs and clusters -Repeat blood culture 09/15 pending Imaging 07/28 - Abdomen/Pelvis CT: Diffuse and extensive subcutaneous emphysema around the abdominal wall from patient's right lateral abdominal wall across midline to left lateral abdominal wall. Fluid collection in anterior left abdominal wall suspicious for subcutaneous abscess. Nonspecific edema throughout subcutaneous tissues. No acute intra-abdominal or pelvic pathology. -Chest x-ray repeated on 09/01 - no acute cardiopulmonary abnormality appreciated -Repeat CT of abdomen and pelvis with IV contrast 09/12 showing overall improvement and no acute changes Prior antibiotics: - Vancomycin, pharm consult (07/28-08/13), restarted 09/12 -- - Cefepime 2gm IV q8h (07/28-08/13) - Flagyl 500 mg IV q6h (07/28-08/13) 09/10/2016: Slight elevation in white blood cells. From 10,000-13,000. We'll continue to monitor. Patient at high risk for wound infection. If stable, anticipate discharge on 09/11/2016. 09/11/2016: WBC elevated to 16.3K, trending upward. Patient without vital sign changes. Initiating sepsis workup. CXR with no acute process. UA showing trace leukocytes, in patient with foul smelling urine. UCx ordered. Rocephin 1g IV q24h x 2 ordered. 09/12/2016: WBC persistently elevated but stable at 16,000. Mildly increased temperatures of 100.2. UA was negative for infection. Chest x-ray no acute process. Rocephin was switched to the antibiotics above. Blood cultures were noted to be positive for gram-positive cocci in pairs and clusters. 09/13/16: patient improved symptomatically, but tachycardia and fever noted today. Will obtain CTA and echocardiogram to rule out PE/cardiac dyskinesis 09/14/16: Bleeding from ostomy site, 20 cc, decrease in Hg from 11.5 --> 10.3. CTA showed small PE in LL Lobe. Symptoms (fevers, chills, hemoptysis) improving. 09/15/16: No further bleeding from the ostomy site. Hg stable at 10.3. Patient having increased Lovenox frequency started this morning, now Lovenox 40 mg sq q12h. Asymptomatic. 09/16/16. No bleeding from ostomy site. Hemoglobin is 9.3. Continue Lovenox 40 mg subQ, heme has been consulted. Patient is clinically improved today. 09/17/16: AFVSS - still high output through coloenteric fistula. Sepsis resolved. (4) Physical deconditioning Status: Acute Plan: Patient physically deconditioned after staying in bed for extended period of time. Nursing order to get patient out of bed at least 3 times a day as tolerated with assistance -PT recommends PT at rehabilitation. -Continue PT workouts while inpatient (5) Urinary tract infection Status: Resolved Plan: Resolved. Abx history: Rocephin 08/31-09/01 Ciprofloxacin 08/23-08/31 Vanc 09/11-present (6) Anemia Status: Acute Plan: - Hemoglobin stable. She is on IV fluids at approximately half maintenance. - Continue to monitor - Iron panel significant for anemia of chronic disease - B12 and Folate both elevated (7) Skin rash Status: Resolved Plan: Rash improved - Completed 7 day course of fluconazole on 09/03 Nystatin powder for groin, axilla, area under breasts, and skin folds Clotrimazole cream for back of neck (8) Depression Status: Chronic Plan: -Continue home Cymbalta 30 mg by mouth daily (9) Lower extremity edema Status: Resolved Plan: Resolved Patient with no pitting edema of bilateral lower extremities on exam. - SCDs - 20 mg Lasix po daily, 25 meq potassium (10) Nutrition, metabolism, and development symptoms Status: Acute Plan: Fluids: NS at 82 ml/hr. Electrolytes: Monitor and replete as needed Nutrition: By mouth regular diet. DVT PPX: SCDs and Lovenox; risk of DVT and PE greater than risk for chronic wound bleeding GI PPX: Pantoprazole BID. wdw Dr. Mckinney. (Brett Beth MD R2) Problem Qualifiers (1) Pulmonary embolism: Qualified Code: I26.99 - Other acute pulmonary embolism without acute cor pulmonale (2) Urinary tract infection: Qualified Code: N30.01 - Acute cystitis with hematuria (3) Anemia: (4) Depression: Qualified Code: F33.9 - Recurrent major depressive disorder, remission status unspecified (5) Lower extremity edema: Qualified Code: R60.0 - Bilateral edema of lower extremity Brett Beth MD R2 Sep 17, 2016 10:14 Fred Mckinney MD Sep 17, 2016 18:09
[2016-09-17 12:00] VITALS: BP 110/53; PULSE 79; RESP 16; TEMP 96.3; O2SAT 96
[2016-09-17] MEDS: IRON SUCROSE INJ 200 MG in SODIUM CHLORIDE 0.9% INJ 100 ML IV SCH (13:58)
[2016-09-17 16:00] VITALS: BP 101/56; PULSE 88; RESP 16; TEMP 95.4; O2SAT 96
[2016-09-17 20:00] VITALS: BP 117/56; PULSE 99; RESP 17; TEMP 98.2; O2SAT 95
[2016-09-17] MEDS: PRAMIPEXOLE DIHYDROCHLORIDE 0.25 MG TAB PO SCH (20:43)
[2016-09-17] MEDS: ZOLPIDEM TARTRATE 5 MG TAB PO PRN (22:00)
[2016-09-18] VITALS: BP 104/55; PULSE 98; RESP 17; TEMP 99.9; O2SAT 95
[2016-09-18] MEDS: SODIUM CHLOR 0.9% 1000 ML INJ 1,000 ML IV SCH ×2 (01:35→13:30)
[2016-09-18] MEDS: ACETAMINOPHEN/HYDROcodone 325 MG/7.5 MG TAB PO PRN ×4 (03:38→21:05)
[2016-09-18] MEDS: OCTREOTIDE INJ 100 MCG/ML VIAL IV PUSH SCH ×3 (04:21→22:00)
[2016-09-18] MEDS: VANCOMYCIN INJ 1,750 MG in SODIUM CHLORID 0.9% 500 ML INJ 500 ML IV SCH (05:02)
[2016-09-18 05:15] LABS: AUTOMATED NEUTROPHIL # 7.4 TH/MM3 (1.8-7.7); BASOPHIL # 0.1 TH/MM3 (0-0.2); BASOPHIL % 1.1 % (0.0-2.0); EOSINOPHIL # 0.2 TH/MM3 (0-0.4); EOSINOPHIL % 2.1 % (0.0-4.0); HEMATOCRIT 27.9 % (35.0-46.0); HEMO FLAGS DIFF FINAL; LYMPH % 13.6 % (9.0-44.0); LYMPHOCYTE # 1.3 TH/MM3 (1.0-4.8); MEAN CELL VOLUME 81.9 FL (80.0-100.0); MEAN CORPUSCULAR HEMOGLOBIN 26.5 PG (27.0-34.0); MEAN CORPUSCULAR HGB CONC 32.4 % (32.0-36.0); MONO % 4.6 % (0.0-8.0); NEUT % 78.6 % (16.0-70.0); PLATELET COUNT 354 TH/MM3 (150-450); RED BLOOD COUNT 3.41 MIL/MM3 (4.00-5.30); RED CELL DISTRIBUTION WIDTH 17.1 % (11.6-17.2); WHITE BLOOD COUNT 9.4 TH/MM3 (4.0-11.0)
[2016-09-18 08:00] VITALS: BP 112/59; PULSE 78; RESP 16; TEMP 96.4; O2SAT 95
--- NOTE | 2016-09-18 08:23 | HHI.FPPN ---
Subjective Remarks Patient reports she feels "great". She denies fever, chills, nausea, vomiting. She denies any episodes of bleeding from the fistula site or otherwise. She still has not had a rectal bowel movement but endorses output from the fistula site. She denies any issues with eating, and her states that she has been eating a lot more lately. Calorie count was reviewed with patient, and the importance of eating regular, high protein diet given no longer on TPN was discussed. She states she moved around with PT in the room yesterday. She is ready to go to the rehabilitation center. She is ready to eat different foods. ( Norma Wheeler MD R1) Objective Vitals Vital Signs Date Time Temp Pulse Resp B/P Pulse Ox O2 Delivery O2 Flow Rate FiO2 09/18/16 00:00 99.9 98 17 104/55 95 09/17/16 20:00 98.2 99 17 117/56 95 09/17/16 16:00 95.4 88 16 101/56 96 09/17/16 15:52 18 09/17/16 12:00 96.3 79 16 110/53 96 I/O 09/17/16 09/17/16 09/17/16 09/18/16 09/18/16 09/18/16 07:00 15:00 23:00 07:00 15:00 23:00 Intake Total 978 ml 1239 ml 835 ml 912 ml Output Total 1075 ml 1000 ml 450 ml Balance -97 ml 1239 ml -165 ml 462 ml Intake Oral 240 ml 240 ml 240 ml 240 ml IV Total 738 ml 999 ml 595 ml 672 ml Gastric Drainage Total 1000 ml Drainage Total 1075 ml 0 ml 450 ml # Voids 3 3 3 3 # Bowel Movements 0 0 (Norma Wheeler MD R1) Result Diagram: 09/18/16 0350 09/16/16 0454 Imaging Last Impressions Upper Extremity Ultrasound 09/14/16 0000 Signed Impressions: Service Date/Time: Wednesday, September 14, 2016 14:21 - CONCLUSION: Superficial thrombosed left cephalic vein associated with the PICC line. Shen Scott MD FACR Lower Extremity Ultrasound 09/14/16 0000 Signed Impressions: Service Date/Time: Wednesday, September 14, 2016 14:02 - CONCLUSION: There is normal compressibility of the deep venous system from the inguinal region to the proximal calf. No echogenic clot is seen in the lumen of the common femoral, femoral, popliteal, and posterior tibial veins. There is a normal response of the venous system to proximal and distal augmentation and respiration. CONCLUSION: Negative for deep venous thrombosis. Shen Scott MD Chest X-Ray 09/13/16 0000 Signed Impressions: Service Date/Time: August 05:15 - CONCLUSION: Mild central pulmonary vascular congestion. Chintan Donovan MD CT Angiography 09/13/16 0000 Signed Impressions: Service Date/Time: August 17:11 - CONCLUSION: Small segmental pulmonary emboli in the left lower lobe. No evidence of main pulmonary artery or lobar pulmonary emboli. Small patchy areas of airspace disease without evidence of segmental or lobar consolidation. Dae Herrera MD Abdomen/Pelvis CT 09/12/16 1234 Signed Impressions: Service Date/Time: Monday, September 12, 2016 18:05 - CONCLUSION: 1. No inflammatory changes are seen within the abdomen or pelvis. Scott Pastor MD Abdomen X-Ray 09/06/16 0000 Signed Impressions: Service Date/Time: August 15:49 - CONCLUSION: 1. Nonspecific bowel gas pattern without evidence for obstruction or free air. Adrian Rendon MD Soft Tissue Ultrasound 08/31/16 0000 Signed Impressions: Service Date/Time: Wednesday, August 31, 2016 21:56 - CONCLUSION: Negative Shashi Mera MD Objective Remarks GENERAL: Patient is obese female in NAD sitting up in bedside chair. SKIN: Warm and dry. Patient with ostomy bag covering repaired fistula. There is a wound VAC from a second site in the mid abdomen. Both sides have good seals at this time. Ostomy output is orange-brown, liquid consistency, without evidence of bleeding. Skin surrounding the fistula mildly erythematous but improved. The belly is not tender HEENT: Normocephalic. Atraumatic. EOMI. No scleral icterus. No injection or drainage. No nasal drainage. Moist mucous membranes. CARDIOVASCULAR: Regular rate and rhythm without murmurs, gallops, or rubs. RESPIRATORY: Clear to auscultation bilaterally without crackles or wheeze. 1+ pulses in upper extremities and lower extremities bilaterally GASTROINTESTINAL: Abdomen obese, bowel sounds normal. Nontender. See skin above. MUSCULOSKELETAL: No notable edema of bilateral lower extremities. No calf tenderness. NEURO: Awake and alert. 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 [employer] CHIEF grossly intact. Medications and IVs Inpatient Medications Acetaminophen (Ofirmev Inj) 1,000 mg Q6H IV Last administered on 09/08/16 05: 44; Start 09/05/16 at 17:30; Stop 09/08/16 at 08:02; Status DC Acetaminophen 650 mg 650 mg Q6HR PRN PO TEMP>101F, PAIN 1-10, HEADACHE Last administered on 09/13/16 12:43; Start 08/30/16 at 14:30 Acetaminophen/ Butalbital/ Caffeine (Fioricet 325-50-40) 1 tab Q6H PRN PO HEADACHE Last administered on 09/12/16 14:01; Start 09/12/16 at 10:45 Acetaminophen/ Hydrocodone Bitart ([place] 7.5-325 Mg) 1 tab Q4H PRN PO PAIN SCALE 6 TO 10 Last administered on 09/18/16 03:38; Start 07/30/16 at 11:00 Alteplase, Recombinant (Cathflo Activase Inj) 2 mg Q2H PRN INTRACATH OCCLUDED CATHETER Last administered on 09/12/16 07:42; Start 09/03/16 at 07:45 Bisacodyl (Dulcolax Supp) 10 mg ONCE ONCE RECTAL ; Start 09/11/16 at 17:30; Stop 09/11/16 at 17:31; Status DC Calcium Carbonate (Tums Chew) 500 mg ONCE ONCE CHEW Last administered on 02:26; Start 07/29/16 at 01:00; Stop 07/29/16 at 01:01; Status DC Cefepime HCl 2000 mg/Sodium Chloride 100 ml @ 200 mls/hr Q8H IV Last administered on 08/13/16 14:31; Start 07/28/16 at 14:00; Stop 08/13/16 at 15:03 ; Status DC Ceftriaxone Sodium 1000 mg/ Sodium Chloride 100 ml @ 200 mls/hr Q24H IV Last administered on 09/11/16 16:15; Start 09/11/16 at 16:00; Stop 09/12/16 at 14:23 ; Status DC Ceftriaxone Sodium/Sodium Chloride (Rocephin Inj/NS Inj) 100 ml @ 200 mls/hr Q24H IV Last administered on 08/31/16 16:28; Start 08/31/16 at 17:00; Stop at 16:24; Status DC Chlorhexidine Gluconate (Chlorhexidine 2% Cloth) 3 pack UNSCH PRN TOP HYGIENIC CARE; Start 07/28/16 at 23:45; Stop 08/02/16 at 23:47; Status DC Ciprofloxacin/ Dextrose 200 ml @ 200 mls/hr Q12H IV ; Start 09/12/16 at 15:00; Stop 09/12/16 at 17:14; Status DC Ciprofloxacin/ Dextrose (Cipro 400 Mg Premix) 200 ml @ 200 mls/hr Q12H IV Last administered on 08/31/16 11:56; Start 08/23/16 at 14:00; Stop 08/31/16 at 15 :18; Status DC Clotrimazole (Lotrimin 1% Cream) 1 applic Q12HR TOPICAL Last administered on 08:40; Start 08/22/16 at 15:00 Diatrizoate Meglum/ Diatrizoate Sod 18 ml 18 ml ONCE ONCE PO Last administered on 09/12/16 13:45; Start 09/12/16 at 13:15; Stop 09/12/16 at 13:16 ; Status DC Diphenhydramine HCl (Benadryl 2% Cream) 1 applic TID PRN TOPICAL ITCHING Last administered on 09/03/16 09:15; Start 08/24/16 at 14:00 Duloxetine HCl (Cymbalta Dr) 30 mg DAILY PO Last administered on 09/18/16 08: 34; Start 09/01/16 at 11:00 Enoxaparin Sodium (Lovenox Inj) 60 mg Q12H SQ Last administered on 09/18/16 08 :34; Start 09/17/16 at 09:00 Enoxaparin Sodium 40 mg 40 mg Q12HR SQ Last administered on 09/16/16 20:13; Start 09/15/16 at 09:00; Stop 09/17/16 at 07:59; Status DC Famotidine (Pepcid) 10 mg Q12HR PO Last administered on 09/13/16 09:51; Start 09/11/16 at 21:00; Stop 09/13/16 at 22:19; Status DC Fat Emulsion Intravenous (Liposyn Iii 20% Inj) 250 ml @ 31.25 mls/ hr SuWe@20 IV-CENTRAL Last administered on 09/09/16 19:59; Start 08/15/16 at 20:00; Stop 09/13/16 at 11:08; Status DC Fluconazole (Diflucan) 200 mg DAILY PO Last administered on 09/03/16 09:14; Start 08/28/16 at 09:00; Stop 09/03/16 at 14:01; Status DC Furosemide (Lasix) 20 mg DAILY PO Last administered on 09/18/16 08:34; Start 08/05/16 at 09:00 Furosemide 20 mg 20 mg ONCE ONCE IV PUSH Last administered on 08/02/16 16:57; Start 08/02/16 at 16:30; Stop 08/02/16 at 16:31; Status DC Glycerin (Glycerin Adult Supp) 2 gm BID PRN RECTAL CONSTIPATION; Start at 11:00; Status Hold Heparin Sodium (Porcine) (Heparin Central Flush) See Protocol UNSCH PRN IVF SEE PROTOCOL TABLE Last administered on 09/05/16 03:03; Start 08/15/16 at 14:15 ; Stop 09/16/16 at 07:23; Status DC Heparin Sodium (Porcine) (Heparin Inj) 5,000 units UNSCH PRN IV APTT LESS THAN 25; Start 09/14/16 at 00:15; Stop 09/16/16 at 07:24; Status DC Heparin Sodium (Porcine) 2500 units 2,500 units UNSCH PRN IV APTT 25 TO 39; Start 09/14/16 at 00:15; Stop 09/16/16 at 07:24; Status DC Heparin Sodium/ Dextrose (Heparin-D5W Inj) 250 ml @ 0 mls/hr TITRATE IV ; Start 09/13/16 at 18:15; Stop 09/16/16 at 07:24; Status DC Hydromorphone HCl (Dilaudid Pf Inj) 1 mg MoWeFr PRN IV BREAKTHRU PAIN; Start at 10:30 Insulin Detemir 5 units 5 units Q12HR SQ Last administered on 09/17/16 22:00; Start 09/12/16 at 21:00 Iron Sucrose/ Sodium Chloride (Venofer Inj/NS Inj) 110 ml @ 110 mls/hr Q24H IV Last administered on 09/17/16 13:58; Start 09/16/16 at 14:00; Stop 09/18/16 at 14:59 IV Flush (NS Flush) See Protocol UNSCH PRN IVF SEE PROTOCOL TABLE; Start at 14:15; Stop 09/16/16 at 07:23; Status DC IV Flush See Protocol UNSCH PRN IVF SEE PROTOCOL TABLE Last administered on 13:47; Start 08/15/16 at 14:15; Stop 09/16/16 at 07:23; Status DC Lactated Ringer's (Lr 1000 ml Inj) 1,000 ml @ 50 mls/hr Q20H IV Last administered on 08/08/16 08:16; Start 08/03/16 at 00:00; Stop 08/08/16 at 10:29; Status DC Lactobacillus Acidophilus (Lactinex) 1 tab TID PO Last administered on 08:34; Start 08/13/16 at 18:00 Lactulose (Lactulose Liq) 30 ml QID PO Last administered on 09/14/16 19:33; Start 09/11/16 at 18:00 Levofloxacin/ Dextrose (Levaquin 750 Mg Premix Inj) 150 ml @ 100 mls/hr ONCE ONCE IV Last administered on 07/28/16 18:14; Start 07/28/16 at 12:30; Stop at 13:59; Status DC Lidocaine/ Epinephrine 10 ml 10 ml ONCE ONCE INFIL ; Start 07/28/16 at 12:15; Stop 07/28/16 at 12:16; Status DC Magnesium Hydroxide (Milk Of Magnesia Liq) 30 ml DAILY PO Last administered on 09/05/16 17:24; Start 09/05/16 at 14:45; Stop 09/08/16 at 11:59; Status DC Metronidazole 100 ml @ 100 mls/hr Q6H IV ; Start 09/12/16 at 16:00; Stop at 17:14; Status DC Metronidazole (Flagyl 500 Mg Inj) 100 ml @ 100 mls/hr Q6H IV Last administered on 08/13/16 14:31; Start 07/28/16 at 14:00; Stop 08/13/16 at 15:04 ; Status DC Miconazole Nitrate (Monistat 7 Vag Cream) 1 appl HS VAGINAL Last administered on 08/06/16 23:05; Start 08/02/16 at 21:00; Stop 08/09/16 at 20:59; Status DC Miscellaneous Information SPECIFIC LAB TO BE THIAGO... ONCE ONCE XX Last administered on 09/16/16 05:31; Start 09/16/16 at 05:45; Stop 09/16/16 at 05:46 ; Status DC Miscellaneous Information (Post-op Orders (for Pharmacy)) STAT ONCE XX ; Start 07/29/16 at 12:15; Stop 07/29/16 at 12:32; Status DC Miscellaneous 1 ea 1 ea UNSCH PRN OTHER SEE LABEL COMMENTS; Start 09/11/16 at 13:45 Morphine Sulfate (Morphine Inj) 2 mg Q3H PRN IV PUSH BREAKTHROUGH PAIN Last administered on 08/05/16 02:35; Start 07/30/16 at 11:00 Morphine Sulfate 4 mg 4 mg Q4HR PRN IV PUSH PAIN SCALE 6 TO 10 Last administered on 07/30/16 04:18; Start 07/28/16 at 13:45; Stop 07/30/16 at 10:36 ; Status DC Multi-Ingredient Ointment (Eucerin Cream) 1 applic Q6H PRN TOPICAL ITCHING Last administered on 09/14/16 11:35; Start 08/24/16 at 14:00 Multivitamins 10 ml/Folic Acid 1 mg/Amino Acids/ Electrolytes/ Dextrose 2,010.2 ml @ 80 mls/hr Q24H IV-CENTRAL Last administered on 09/10/16 20:00; Start at 20:00; Stop 09/11/16 at 14:53; Status DC Naloxone HCl 0.4 mg 0.4 mg UNSCH PRN IV SEE LABEL COMMENTS; Start 07/28/16 at 13:00 Nystatin 1 applic 1 applic Q12HR TOPICAL Last administered on 09/18/16 08:40; Start 08/22/16 at 15:00 Octreotide Acetate (SandoSTATIN INJ) 100 mcg Q8HR IV PUSH Last administered on 09/17/16 05:09; Start 08/23/16 at 22:00 Ondansetron HCl (Zofran Inj) 4 mg Q6HR PRN IV PUSH NAUSEA OR VOMITING Last administered on 09/12/16 12:11; Start 08/28/16 at 16:00 Pantoprazole Sodium (Protonix Inj) 40 mg Q24H IV PUSH Last administered on 08/13 10:30; Start 07/30/16 at 12:00; Stop 08/14/16 at 07:38; Status DC Pantoprazole Sodium (Protonix) 40 mg BID PO Last administered on 09/18/16 08: 33; Start 09/13/16 at 22:30 Pharmacy Profile Note ml @ 0 mls/hr UNSCH XX ; Start 09/12/16 at 17:45 Polyethylene Glycol (Miralax) 17 gm DAILY PO Last administered on 09/18/16 08: 34; Start 09/08/16 at 12:00 Potassium Bicarbonate (Effer-K Eff) 25 meq DAILY PO Last administered on 08:07; Start 08/06/16 at 21:00; Stop 09/10/16 at 10:36; Status DC Pramipexole Dihydrochloride (Mirapex) 0.5 mg HS@2000 PO Last administered on 20:43; Start 08/03/16 at 20:00 Senna/Docusate Sodium (Annette-Colace) 2 tab BID PO Last administered on 08:34; Start 09/08/16 at 21:00 Sodium Polystyrene Sulfonate (Kayexalate Enema) 30 gm ONCE ONCE RECTAL Last administered on 09/12/16 12:45; Start 09/12/16 at 12:45; Stop 09/12/16 at 12:49 ; Status DC Sodium Polystyrene Sulfonate (Kayexalate Liq) 15 gm ONCE ONCE PO Last administered on 09/12/16 17:10; Start 09/12/16 at 14:30; Stop 09/12/16 at 14:31 ; Status DC Sodium Chloride (NS 1000 ml Inj) 1,000 ml @ 84 mls/hr Q32M74P IV Last administered on 09/17/16 13:58; Start 09/12/16 at 14:30 Sodium Chloride (NS 250 ml Inj) 250 ml @ 15 mls/hr ONCE ONCE IV Last administered on 07/28/16 23:47; Start 07/28/16 at 22:15; Stop 07/29/16 at 14:54 ; Status DC Sodium Chloride (NS 500 ml Inj) 500 ml @ 500 mls/hr BOLUS ONCE IV Last administered on 09/13/16 17:01; Start 09/13/16 at 15:45; Stop 09/13/16 at 16:44 ; Status DC Sodium Chloride/ Sodium Acetate/ Sodium Phosphate/ Magnesium Chloride/Calcium Chloride/ Multivitamins/ Folic Acid/Amino Acids/Dextrose (Sodium Chloride 23.4% Inj/Sodium Acetate Inj/ Sodium Phosphate Inj/Magnesium Chloride Inj/ Calcium Chloride Inj/Mvi-12 Inj/ Folvite Inj/ Clinimix 11/22) 2,064.1437 ml @ 80 mls/hr Q24H IV-CENTRAL Last administered on 09/11/16 22:33; Start 09/11/16 at 20:00; Stop 09/13/16 at 11:08; Status DC Vancomycin HCl 1000 mg/Sodium Chloride 250 ml @ 250 mls/hr Q24H IV ; Start at 15:00; Stop 07/28/16 at 16:46; Status DC Vancomycin HCl 1250 mg/Sodium Chloride 262.5 ml @ 262.5 mls/ hr Q12H IV Last administered on 09/13/16 06:50; Start 09/13/16 at 06:00; Stop 09/13/16 at 11:45 ; Status DC Vancomycin HCl 1500 mg/Sodium Chloride 515 ml @ 257.5 mls/ hr Q18H IV Last administered on 07/31/16 00:36; Start 07/28/16 at 18:00; Stop 07/31/16 at 11:49 ; Status DC Vancomycin HCl 1750 mg/Sodium Chloride 517.5 ml @ 250 mls/hr ONCE ONCE IV Last administered on 09/12/16 18:00; Start 09/12/16 at 18:00; Stop 09/12/16 at 20:04; Status DC Vancomycin HCl/ Sodium Chloride (Vancomycin Inj/ NS 500 ml Inj) 517.5 ml @ 258.75 mls/ hr Q24H IV Last administered on 09/18/16t 05:02; Start 09/14/16 at 06:00 Zolpidem Tartrate (Ambien) 5 mg HS PRN PO INSOMNIA Last administered on t 22:00; Start 07/30/16 at 21:00 (Norma Wheeler MD R1) Urinary Catheter: No (Norma Wheeler MD R1) Vascular Central Line Catheter: No (Norma Wheeler MD R1) A/P Assessment and Plan 65-year-old female who recently had exploration in [place] with 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 She has had a prolonged hospital stay due to recurrent sepsis bacteremia and new finding of a left lower lobe pulmonary embolism. Discharge Planning Patient was previously cleared by general surgery for discharge, still following patient. Hematology was consulted, recommendations for outpatient management of pulmonary embolism pending, currently on sq Lovenox. Sepsis bacteremia resolving, patient to continue vancomycin by IV until 09/22/16 (to complete a 7 day course after documented negative blood cultures). Physical therapy recommends PT rehabilitation. Discharge possibly in 1-2 days given clearance by specialists and approval for continued IV antibiotic management at [facility] (Norma Wheeler MD R1) Attending Attestation Patient examined and case discussed with resident physicians I have read the above note and agree with the assessment/plan is discussed with me I was involved in all medical decision making for this patient Fred Mciknney M.D. (Fred Mckinney MD) Problem List: (1) Gram positive septicemia Status: Acute Plan: Patient clinically decompensated approximately one week ago with fever, leukocytosis, tachycardia. Repeat blood cultures on 09/13 grew staph epidermidis. Repeat blood cultures on 09/15 she currently show no growth today. Vancomycin IV initiated on 09/12, however, blood cultures not clear of infection until 09/15. We'll continue IV antibiotics to complete a 7-day course with negative blood cultures, end date 09/22/16. Hospital course: Gram positive cocci in 3 out of 4 blood cx. PICC removed on 09/13. Afebrile x 24 hrs. Leukocytosis resolved. Blood culture 09/11 showing staph epidermidis in both bottles Repeat blood cultures 09/13 secondary to new-onset fever showed staph epidermidis in 1/2 bottle Repeat blood culture 09/15 showing no growth to date Vancomycin 1750 g IV q24h (started 09/12) Infectious disease consult was placed, recommended continuing Vanc, in agreement that PICC line was likely source of bacteremia (2) Pulmonary embolism Status: Acute Plan: Small segmental PE in Left lower lobe shown on CTA 09/13/16 Pt with bleeding from left lower quadrant fistula 09/14, now resolved. H&H decrease from 10.3 on 09/15 noted. Currently 9.0 this morning. No obvious signs of bleeding at this time. On IV fluids so this may be dilutional. We'll follow-up hematology recs. On Lovenox 60 mg q12h. Trending H&H. Monitor for signs of bleeding. 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 General Surgery consulted at admission. 07/28: Status post incision and drainage and washout of left abdominal wall, with wound vac placement due to small bowel fistula Wound VAC changes at bedside by wound care team -Pain control with [place] 7.5325 Q4hrs prn pain 610, morphine 2 mg IV q3h prn breakthrough, hold if SBP < 110 or DBP < 60 -Dilaudid when necessary with wound changes Imaging 07/28 - Abdomen/Pelvis CT: Diffuse and extensive subcutaneous emphysema around the abdominal wall from patient's right lateral abdominal wall across midline to left lateral abdominal wall. Fluid collection in anterior left abdominal wall suspicious for subcutaneous abscess. Nonspecific edema throughout subcutaneous tissues. No acute intra-abdominal or pelvic pathology. -Chest x-ray repeated on 09/01 - no acute cardiopulmonary abnormality appreciated -Repeat CT of abdomen and pelvis with IV contrast 09/12 showing overall improvement and no acute changes Prior antibiotics: - Vancomycin, pharm consult (07/28-08/13), restarted 09/12 -- - Cefepime 2gm IV q8h (07/28-08/13) - Flagyl 500 mg IV q6h (07/28-08/13) 09/10/2016: Slight elevation in white blood cells. From 10,000-13,000. We'll continue to monitor. Patient at high risk for wound infection. If stable, anticipate discharge on 09/11/2016. 09/11/2016: WBC elevated to 16.3K, trending upward. Patient without vital sign changes. Initiating sepsis workup. CXR with no acute process. UA showing trace leukocytes, in patient with foul smelling urine. UCx ordered. Rocephin 1g IV q24h x 2 ordered. 09/12/2016: WBC persistently elevated but stable at 16,000. Mildly increased temperatures of 100.2. UA was negative for infection. Chest x-ray no acute process. Rocephin was switched to the antibiotics above. Blood cultures were noted to be positive for gram-positive cocci in pairs and clusters. 09/13/16: patient improved symptomatically, but tachycardia and fever noted today. Will obtain CTA and echocardiogram to rule out PE/cardiac dyskinesis 09/14/16: Bleeding from ostomy site, 20 cc, decrease in Hg from 11.5 --> 10.3. CTA showed small PE in LL Lobe. Symptoms (fevers, chills, hemoptysis) improving. 09/15/16: No further bleeding from the ostomy site. Hg stable at 10.3. Patient having increased Lovenox frequency started this morning, now Lovenox 40 mg sq q12h. Asymptomatic. 09/16/16. No bleeding from ostomy site. Hemoglobin is 9.3. Continue Lovenox 40 mg subQ BID, heme has been consulted. Patient is clinically improved today. 09/17/16: AFVSS - still high output through coloenteric fistula. Sepsis resolved. Lovenox 60 mg subcutaneous BID initiated 09/17/16: Tmax 99.9F over the last 24 hours. She feels great. Vital signs are stable. IV vancomycin continued, end date 09/22/16. Pending recs from general surgery and hematology regarding discharge planning (4) Physical deconditioning Status: Acute Plan: Patient physically deconditioned after staying in bed for extended period of time. Nursing order to get patient out of bed at least 3 times a day as tolerated with assistance -PT recommends PT at rehabilitation. -Continue PT workouts while inpatient (5) Urinary tract infection Status: Resolved Plan: Resolved. Abx history: Rocephin 08/31-09/01 Ciprofloxacin 08/23-08/31 Vanc 09/11-present (6) Anemia Status: Acute Plan: - Hemoglobin stable but anemic. She is on IV fluids at approximately half maintenance. - Continue to monitor BMP and CBC - Iron panel suggestive of anemia of chronic disease - B12 and Folate both elevated -Continue to monitor H&H as outpatient (7) Skin rash Status: Resolved Plan: Rash improved - Completed 7 day course of fluconazole on 3/6 Nystatin powder for groin, axilla, area under breasts, and skin folds Clotrimazole cream for back of neck (8) Depression Status: Chronic Plan: -Continue home Cymbalta 30 mg by mouth daily (9) Lower extremity edema Status: Resolved Plan: Resolved Patient with no pitting edema of bilateral lower extremities on exam. - SCDs - 20 mg Lasix po daily, 25 meq potassium (10) Nutrition, metabolism, and development symptoms Status: Acute Plan: Fluids: NS at 82 ml/hr. Electrolytes: Monitor and replete as needed Nutrition: By mouth regular diet. DVT PPX: SCDs and Lovenox; risk of DVT and PE greater than risk for chronic wound bleeding GI PPX: Pantoprazole BID. wdw Dr. Mckinney. (Norma Wheeler MD R1) Problem Qualifiers (1) Pulmonary embolism: Qualified Code: I26.99 - Other acute pulmonary embolism without acute cor pulmonale (2) Urinary tract infection: Qualified Code: N30.01 - Acute cystitis with hematuria (3) Anemia: (4) Depression: Qualified Code: F33.9 - Recurrent major depressive disorder, remission status unspecified (5) Lower extremity edema: Qualified Code: R60.0 - Bilateral edema of lower extremity Norma Wheeler MD R1 Sep 18, 2016 08:23 Fred Mckinney MD Sep 18, 2016 09:50
[2016-09-18] MEDS: SODIUM CHLORIDE 0.9% FLUSH 5 ML FLUSH IVF SCH ×2 (08:27→23:33)
[2016-09-18] MEDS: PANTOPRAZOLE SOD 40 MG DELAYED RELEASE TAB PO SCH ×2 (08:33→23:30)
[2016-09-18] MEDS: ENOXAPARIN SODIUM 60 MG/0.6 ML SYRINGE SQ SCH ×2 (08:34→23:30)
[2016-09-18] MEDS: FUROSEMIDE 20 MG TAB PO SCH (08:34)
[2016-09-18] MEDS: LACTOBACILLUS ACIDOPHILUS TAB PO SCH ×3 (08:34→18:14)
[2016-09-18] MEDS: DOCUSATE SODIUM 50 MG/SENNA 8.6 MG TAB PO SCH ×2 (08:34→23:29)
[2016-09-18] MEDS: POLYETHYLENE GLYCOL 17 GM PKG PO SCH (08:34)
[2016-09-18] MEDS: DULoxetine HCl DR 30 MG CAP PO SCH (08:34)
[2016-09-18] MEDS: LACTULOSE SYRUP 20 GM/30 ML CUP PO SCH ×4 (08:35→23:33)
[2016-09-18] MEDS: INSULIN DETEMIR 100 UNITS/ML VIAL SQ SCH ×2 (08:35→23:29)
[2016-09-18] MEDS: CLOTRIMAZOLE 1% CREAM 15 GM TOPICAL SCH ×2 (08:40→21:00)
[2016-09-18] MEDS: NYSTATIN 100,000 U/GM PWD 15 GM BTL TOPICAL SCH ×2 (08:40→21:00)
[2016-09-18 12:00] VITALS: BP 100/54; PULSE 98; RESP 16; TEMP 97.7; O2SAT 96
--- NOTE | 2016-09-18 14:20 | PD.ONC.PN ---
Subjective Subjective Remarks Afebrile overnight. Patient denies any obvious bleeding. She continues to have no BM and move her bowels through the fistula only. She denies pain. Objective Data Date Time Temp Pulse Resp B/P Pulse Ox O2 Delivery O2 Flow Rate FiO2 09/18/16 12:00 97.7 98 16 100/54 96 09/18/16 12:00 97.7 98 16 100/54 96 09/18/16 08:00 96.4 78 16 112/59 95 09/18/16 00:00 99.9 98 17 104/55 95 09/17/16 20:00 98.2 99 17 117/56 95 09/17/16 16:00 95.4 88 16 101/56 96 09/17/16 15:52 18 09/18/16 09/18/16 09/18/16 07:00 15:00 23:00 Intake Total 912 ml Output Total 450 ml Balance 462 ml Result Diagram: 09/18/16 0350 09/16/16 0454 Laboratory Results Laboratory Tests Test 09/18/16 03:50 White Blood Count 9.4 TH/MM3 Red Blood Count 3.41 MIL/MM3 Hemoglobin 9.0 GM/DL Hematocrit 27.9 % Mean Corpuscular Volume 81.9 FL Mean Corpuscular Hemoglobin 26.5 PG Mean Corpuscular Hemoglobin 32.4 % Concent Red Cell Distribution Width 17.1 % Platelet Count 354 TH/MM3 Mean Platelet Volume 7.2 FL Neutrophils (%) (Auto) 78.6 % Lymphocytes (%) (Auto) 13.6 % Monocytes (%) (Auto) 4.6 % Eosinophils (%) (Auto) 2.1 % Basophils (%) (Auto) 1.1 % Neutrophils # (Auto) 7.4 TH/MM3 Lymphocytes # (Auto) 1.3 TH/MM3 Monocytes # (Auto) 0.4 TH/MM3 Eosinophils # (Auto) 0.2 TH/MM3 Basophils # (Auto) 0.1 TH/MM3 CBC Comment DIFF FINAL Differential Comment Administered Medications Medications (Trade) Dose Ordered Sig/Johnie Route PRN Reason Start Time Stop Time Status Last Admin Dose Admin Miscellaneous Information Patient in critical care unit? Ass... [id number] XX 07/28/16 23:45 07/28/16 23:45 IV Flush (NS Flush) 2 ml UNSCH PRN IVF FLUSH AFTER USING IV ACCESS 07/29/16 12:15 09/07/16 09:57 IV Flush (NS Flush) 2 ml BID IVF 07/29/16 21:00 09/17/16 20:43 Acetaminophen/ Hydrocodone Bitart ([place] 7.5-325 Mg) 1 tab Q4H PRN PO PAIN SCALE 6 TO 10 07/30/16 11:00 09/18/16 10:10 Morphine Sulfate (Morphine Inj) 2 mg Q3H PRN IV PUSH BREAKTHROUGH PAIN 07/30/16 11:00 08/05/16 02:35 Zolpidem Tartrate (Ambien) 5 mg HS PRN PO INSOMNIA 07/30/16 21:00 09/17/16 22:00 Pramipexole Dihydrochloride (Mirapex) 0.5 mg HS@2000 PO 08/03/16 20:00 09/17/16 20:43 Furosemide (Lasix) 20 mg DAILY PO 08/05/16 09:00 09/18/16 08:34 Lactobacillus Acidophilus (Lactinex) 1 tab TID PO 08/13/16 18:00 09/18/16 08:34 Hydromorphone HCl (Dilaudid Pf Inj) 1 mg MoWeFr PRN IV DRESSING CHANGES 08/15/16 10:30 08/28/16 21:58 Bisacodyl (Dulcolax Supp) 10 mg DAILY PRN RECTAL constipation 08/17/16 11:00 09/08/16 12:11 Clotrimazole (Lotrimin 1% Cream) 1 applic Q12HR TOPICAL 08/22/16 15:00 09/18/16 08:40 Nystatin (Mycostatin Powder) 1 applic Q12HR TOPICAL 08/22/16 15:00 09/18/16 08:40 Octreotide Acetate (SandoSTATIN INJ) 100 mcg Q8HR IV PUSH 08/23/16 22:00 09/17/16 05:09 Multi-Ingredient Ointment (Eucerin Cream) 1 applic Q6H PRN TOPICAL ITCHING 08/24/16 14:00 09/14/16 11:35 Diphenhydramine HCl (Benadryl 2% Cream) 1 applic TID PRN TOPICAL ITCHING 08/24/16 14:00 09/03/16 09:15 Ondansetron HCl (Zofran Inj) 4 mg Q6HR PRN IV PUSH NAUSEA OR VOMITING 08/28/16 16:00 09/12/16 12:11 Acetaminophen (Tylenol) 650 mg Q6HR PRN PO TEMP>101F, PAIN 1-10, HEADACHE 08/30/16 14:30 09/13/16 12:43 Duloxetine HCl (Cymbalta Dr) 30 mg DAILY PO 09/01/16 11:00 09/18/16 08:34 Alteplase, Recombinant (Cathflo Activase Inj) 2 mg Q2H PRN INTRACATH OCCLUDED CATHETER 09/03/16 07:45 09/12/16 07:42 Senna/Docusate Sodium (Annette-Colace) 2 tab BID PO 09/08/16 21:00 09/18/16 08:34 Polyethylene Glycol (Miralax) 17 gm DAILY PO 09/08/16 12:00 09/18/16 08:34 Lactulose (Lactulose Liq) 30 ml QID PO 09/11/16 18:00 09/14/16 19:33 Acetaminophen/ Butalbital/ Caffeine 1 tab 1 tab Q6H PRN PO HEADACHE 09/12/16 10:45 09/12/16 14:01 Sodium Chloride (NS 1000 ml Inj) 1,000 ml @ 84 mls/hr [id number] IV 09/12/16 14:30 09/17/16 13:58 Insulin Detemir 5 units 5 units Q12HR SQ 09/12/16 21:00 09/17/16 22:00 Vancomycin HCl/ Sodium Chloride (Vancomycin Inj/ NS 500 ml Inj) 517.5 ml @ 258.75 mls/ hr Q24H IV 09/14/16 06:00 09/18/16 05:02 Pantoprazole Sodium 40 mg 40 mg BID PO 09/13/16 22:30 09/18/16 08:33 Iron Sucrose/ Sodium Chloride (Venofer Inj/NS Inj) 110 ml @ 110 mls/hr Q24H IV 09/16/16 14:00 09/18/16 14:59 09/17/16 13:58 Enoxaparin Sodium (Lovenox Inj) 60 mg Q12H SQ 09/17/16 09:00 09/18/16 08:34 Objective Remarks GENERAL: Middle aged obese female, lying in bed in nad. SKIN: Warm and dry. HEAD: Normocephalic. EYES: No injection or drainage. NECK: Supple, trachea midline. CARDIOVASCULAR: Regular rate and rhythm RESPIRATORY: Breath sounds equal bilaterally. No accessory muscle use. GASTROINTESTINAL: Abdomen soft, obese. large ostomy bag with brown stool, no obvious blood. EXTREMITIES: No cyanosis. no edema. NEUROLOGICAL: AO x 3. moving extremities. normal speech. Assessment/Plan Problem List: (1) Pulmonary embolism Status: Acute Plan: 09/18/2016: continue Lovenox 60mg SQ q 12. monitor CBC 09/17/2016: Lovenox dosing increased to 60 mg subcutaneous every 12 hours. 09/16: slight decrease in hemoglobin with no obvious bleeding. would continue current dose of Lovenox and check H/H at noon. If there is further evidence of fall or bleeding, would reduce or d/c Lovenox. 09/15 --increased to Lovenox 40mg SQ BID 08/13-09/14: on Lovenox 40mg SQ daily 09/13: CTA shows PE. (2) Anemia Status: Acute Plan: --received iron sucrose infusions from 09/16/2016--09/18/2016 Assessment 65y/o female with competing needs of PE vs. intermittently bleeding colocutaneous fistula. (History from initial consult) Ms. Menard is a 65-year-old female who has been hospitalized at this facility since late July 2016. The patient was admitted initially due to swelling and pain involving her abdomen, specifically in the left lower quadrant. She has a history of multiple abdominal surgeries including gastric bypass as well as multiple surgeries for abdominal wall hernias and fistula repair. It is apparent based on clinical exam that shortly after her admission she was noted to have a large abscess involving the abdominal wall. She underwent incision and drainage of this. The first surgery was performed on 08/02/2016. She subsequently underwent extensive debridement of necrotic tissue and was found to have a fistula tract going into the colon. A wound vac was placed and she was initiated on antibiotics. Over the course of this hospitalization she has had multiple surgical dbridements. 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 In fact most of her stools are coming out of the colocutaneous fistula. For management of her antibiotics she did have a left upper extremity PICC line placed. The PICC line was removed on 09/14/2015 and the patient reports noting immediate onset difficulty breathing. CT angiogram was done which revealed a subsegmental pulmonary emboli involving the left lower lobe. She was initiated on anticoagulation. However, she was noted to have increased bleeding from the fistula site, the bleeding was described as red blood. Subsequent ultrasound Doppler studies of the upper and lower extremities indicated no evidence of lower extremity deep venous thromboses but she was found to have a superficial venous thrombosis involving the left cephalic vein (ipsilateral to the PICC line). Plan 1. Subsegmental pulmonary emboli involving the left lower lobe distribution: Continue Lovenox 60mg SQ q 12 hour. Monitor H/H daily and once her hemoglobin has remained stable for several days she could be discharged to rehab, as long as she has someone following her CBC once she is discharged to rehab. 2. she will need follow up with Dr. Bai in 1-2 weeks post discharge. I have faxed her face sheet to new patient referrals to help coordinate this. Problem Qualifiers (1) Pulmonary embolism: Qualified Code: I26.99 - Other acute pulmonary embolism without acute cor pulmonale (2) Anemia: Ana Butt Sep 18, 2016 14:20
--- NOTE | 2016-09-18 15:10 | HHI.IDPN ---
Subjective Subjective Remarks pt is feeling OK Low grade fever and hypothermic episodes noted in the last 72 hrs Denies vision changes or floaters She is now growing yeast in her 09/15 clx micafungin added Antibiotics vancomycin micafungin Allergies: Coded Allergies: Penicillin (Verified Allergy, Severe, rash, 07/28/16) Objective . Vital Signs Date Time Temp Pulse Resp B/P Pulse Ox O2 Delivery O2 Flow Rate FiO2 09/18/16 12:00 97.7 98 16 100/54 96 09/18/16 12:00 97.7 98 16 100/54 96 09/18/16 08:00 96.4 78 16 112/59 95 09/18/16 00:00 99.9 98 17 104/55 95 09/17/16 20:00 98.2 99 17 117/56 95 09/17/16 16:00 95.4 88 16 101/56 96 09/17/16 15:52 18 09/17/16 09/17/16 09/18/16 15:00 23:00 07:00 Intake Total 1239 ml 835 ml 912 ml Output Total 1000 ml 450 ml Balance 1239 ml -165 ml 462 ml Intake Oral 240 ml 240 ml 240 ml IV Total 999 ml 595 ml 672 ml Gastric Drainage Total 1000 ml Drainage Total 0 ml 450 ml # Voids 3 3 3 # Bowel Movements 0 . Laboratory Tests Test 09/17/16 09/18/16 04:20 03:50 White Blood Count 6.4 TH/MM3 9.4 TH/MM3 Red Blood Count 3.59 MIL/MM3 3.41 MIL/MM3 Hemoglobin 9.6 GM/DL 9.0 GM/DL Hematocrit 29.5 % 27.9 % Mean Corpuscular Volume 82.1 FL 81.9 FL Mean Corpuscular Hemoglobin 26.9 PG 26.5 PG Mean Corpuscular Hemoglobin 32.7 % 32.4 % Concent Red Cell Distribution Width 17.3 % 17.1 % Platelet Count 331 TH/MM3 354 TH/MM3 Mean Platelet Volume 7.2 FL 7.2 FL Neutrophils (%) (Auto) 66.0 % 78.6 % Lymphocytes (%) (Auto) 20.5 % 13.6 % Monocytes (%) (Auto) 9.6 % 4.6 % Eosinophils (%) (Auto) 3.4 % 2.1 % Basophils (%) (Auto) 0.5 % 1.1 % Neutrophils # (Auto) 4.2 TH/MM3 7.4 TH/MM3 Lymphocytes # (Auto) 1.3 TH/MM3 1.3 TH/MM3 Monocytes # (Auto) 0.6 TH/MM3 0.4 TH/MM3 Eosinophils # (Auto) 0.2 TH/MM3 0.2 TH/MM3 Basophils # (Auto) 0.0 TH/MM3 0.1 TH/MM3 CBC Comment DIFF FINAL DIFF FINAL Differential Comment Imaging Last Impressions Chest X-Ray 09/13/16 0000 Signed Impressions: Service Date/Time: August 05:15 - CONCLUSION: Mild central pulmonary vascular congestion. Chintan Donovan MD CT Angiography 09/13/16 0000 Signed Impressions: Service Date/Time: August 17:11 - CONCLUSION: Small segmental pulmonary emboli in the left lower lobe. No evidence of main pulmonary artery or lobar pulmonary emboli. Small patchy areas of airspace disease without evidence of segmental or lobar consolidation. Dae Herrera MD Abdomen/Pelvis CT 09/12/16 1234 Signed Impressions: Service Date/Time: Monday, September 12, 2016 18:05 - CONCLUSION: 1. No inflammatory changes are seen within the abdomen or pelvis. Scott Pastor MD Abdomen X-Ray 09/06/16 0000 Signed Impressions: Service Date/Time: August 15:49 - CONCLUSION: 1. Nonspecific bowel gas pattern without evidence for obstruction or free air. Adrian Rendon MD Soft Tissue Ultrasound 08/31/16 0000 Signed Impressions: Service Date/Time: Wednesday, August 31, 2016 21:56 - CONCLUSION: Negative Shashi Mera MD Physical Exam CONSTITUTIONAL/GENERAL: This is a morbidly obese female patient, in no apparent distress. SKIN: No jaundice, rashes, or lesions. Skin temperature appropriate. Not diaphoretic. CARDIOVASCULAR: Regular rate and rhythm without murmurs, gallops, or rubs. No JVD. Peripheral pulses symmetric. RESPIRATORY/CHEST: Symmetric, unlabored respirations. Clear to auscultation. Breath sounds equal bilaterally. No wheezes, rales, or rhonchi. GASTROINTESTINAL: Abdomen soft, non-tender, nondistended. No hepato-splenomegaly , or palpable masses. No guarding. Bowel sounds present. ABdomen is obese with multiple scars rom previous surgeries VAC in place in mid abdomen with serosang dc LLQ enterocutaneous fistula seen with very large amount of watery light brown stool LLQ with residual erythema and edema MUSCULOSKELETAL: Extremities without clubbing, cyanosis, or edema. NEUROLOGICAL: Awake and alert.NOn focal LINES: LUE periferal line - site looks OK Assessment & Plan Remarks High grade staph epi bacteremia - likely from PICC - removed Abdominal wall abscess on admission, sp tx Enterocutaneous fistual, high output New issue - fungemia Cont vancomycin x 5 - 7 day following removal of the catheter Cont Micafungin Fu ID on yeast 2 D echo remove periferal line Anticipate at least 2 weeks of antifungals Ella Carter RN, MD Sep 18, 2016 15:10
[2016-09-18 16:00] VITALS: BP 103/57; PULSE 98; RESP 16; TEMP 95.6; O2SAT 96
[2016-09-18] MEDS: IRON SUCROSE INJ 200 MG in SODIUM CHLORIDE 0.9% INJ 100 ML IV SCH (18:02)
[2016-09-18 20:00] VITALS: BP 104/58; PULSE 91; RESP 17; TEMP 99.2; O2SAT 96
[2016-09-18] MEDS: MICAFUNGIN INJ 150 MG in SODIUM CHLORIDE 0.9% INJ 100 ML IV SCH (21:50)
[2016-09-18] MEDS: ZOLPIDEM TARTRATE 5 MG TAB PO PRN (22:50)
[2016-09-18] MEDS: PRAMIPEXOLE DIHYDROCHLORIDE 0.25 MG TAB PO SCH (23:30)
[2016-09-19] VITALS: BP 113/60; PULSE 86; RESP 17; TEMP 98.7; O2SAT 96
[2016-09-19] MEDS: SODIUM CHLOR 0.9% 1000 ML INJ 1,000 ML IV SCH ×2 (01:25→12:38)
[2016-09-19 04:31] LABS: AUTOMATED NEUTROPHIL # 4.9 TH/MM3 (1.8-7.7); BASOPHIL % 0.5 % (0.0-2.0); EOSINOPHIL # 0.2 TH/MM3 (0-0.4); EOSINOPHIL % 2.5 % (0.0-4.0); HEMATOCRIT 28.7 % (35.0-46.0); HEMO FLAGS DIFF FINAL; LYMPH % 21.7 % (9.0-44.0); LYMPHOCYTE # 1.6 TH/MM3 (1.0-4.8); MEAN CELL VOLUME 82.2 FL (80.0-100.0); MEAN CORPUSCULAR HEMOGLOBIN 26.7 PG (27.0-34.0); MEAN CORPUSCULAR HGB CONC 32.5 % (32.0-36.0); MONO % 8.2 % (0.0-8.0); NEUT % 67.1 % (16.0-70.0); PLATELET COUNT 395 TH/MM3 (150-450); RED CELL DISTRIBUTION WIDTH 17.2 % (11.6-17.2); WHITE BLOOD COUNT 7.3 TH/MM3 (4.0-11.0)
[2016-09-19 04:44] LABS: APTT (PATIENT) 41.9 SEC (24.3-30.1); INTERNATIONAL NORMALIZED RATIO 1.1 RATIO; PROTHROMBIN TIME - PATIENT 12.3 SEC (9.8-11.6)
[2016-09-19] MEDS: OCTREOTIDE INJ 100 MCG/ML VIAL IV PUSH SCH ×3 (04:52→21:19)
[2016-09-19 04:58] LABS: BICARBONATE 19.1 MEQ/L (21.0-32.0); POTASSIUM 3.4 MEQ/L (3.5-5.1)
[2016-09-19] MEDS: ACETAMINOPHEN/HYDROcodone 325 MG/7.5 MG TAB PO PRN ×3 (05:49→18:36)
[2016-09-19] MEDS: VANCOMYCIN INJ 1,750 MG in SODIUM CHLORID 0.9% 500 ML INJ 500 ML IV SCH (05:50)
[2016-09-19 08:00] VITALS: BP 105/52; PULSE 84; RESP 16; TEMP 97.6; O2SAT 97
[2016-09-19] MEDS: SODIUM CHLORIDE 0.9% FLUSH 5 ML FLUSH IVF SCH ×2 (08:58→21:21)
[2016-09-19] MEDS: ENOXAPARIN SODIUM 60 MG/0.6 ML SYRINGE SQ SCH ×2 (09:01→21:18)
[2016-09-19] MEDS: PANTOPRAZOLE SOD 40 MG DELAYED RELEASE TAB PO SCH ×2 (09:01→21:18)
[2016-09-19] MEDS: DOCUSATE SODIUM 50 MG/SENNA 8.6 MG TAB PO SCH ×2 (09:01→21:19)
[2016-09-19] MEDS: FUROSEMIDE 20 MG TAB PO SCH (09:01)
[2016-09-19] MEDS: LACTULOSE SYRUP 20 GM/30 ML CUP PO SCH ×2 (09:01→13:00)
[2016-09-19] MEDS: DULoxetine HCl DR 30 MG CAP PO SCH (09:01)
[2016-09-19] MEDS: INSULIN DETEMIR 100 UNITS/ML VIAL SQ SCH ×2 (09:02→21:00)
[2016-09-19] MEDS: CLOTRIMAZOLE 1% CREAM 15 GM TOPICAL SCH ×2 (09:02→21:00)
[2016-09-19] MEDS: NYSTATIN 100,000 U/GM PWD 15 GM BTL TOPICAL SCH ×2 (09:02→21:00)
[2016-09-19] MEDS: LACTOBACILLUS ACIDOPHILUS TAB PO SCH ×3 (09:04→16:52)
[2016-09-19] MEDS: POLYETHYLENE GLYCOL 17 GM PKG PO SCH (09:04)
[2016-09-19] MEDS ORDERED: RIVAROXABAN 15 MG TAB PO SCH (09:45)
[2016-09-19 12:00] VITALS: BP 106/81; PULSE 82; RESP 17; TEMP 98.2; O2SAT 95
--- NOTE | 2016-09-19 12:16 | HHI.FPPN ---
Subjective Remarks Patient is having fecal material coming out of her osteomy bag on the left. She denies any F,C, CP, or SOB. No abdominal pain or BMs per rectum. (Brett Beth MD R2) Objective Vitals Vital Signs Date Time Temp Pulse Resp B/P Pulse Ox O2 Delivery O2 Flow Rate FiO2 09/19/16 08:00 97.6 84 16 105/52 97 09/19/16 00:00 98.7 86 17 113/60 96 09/18/16 20:00 99.2 91 17 104/58 96 09/18/16 16:00 95.6 98 16 103/57 96 I/O 09/18/16 09/18/16 09/18/16 09/19/16 09/19/16 09/19/16 07:00 15:00 23:00 07:00 15:00 23:00 Intake Total 912 ml 120 ml 240 ml 240 ml Output Total 450 ml 2000 ml 1000 ml Balance 462 ml 120 ml -1760 ml -760 ml Intake Oral 240 ml 120 ml 240 ml 240 ml IV Total 672 ml Drainage Total 450 ml 2000 ml 1000 ml # Voids 3 4 3 3 # Bowel Movements 0 (Brett Beth MD R2) Result Diagram: 09/19/16 0341 09/19/16 0341 Imaging Last Impressions Upper Extremity Ultrasound 09/14/16 0000 Signed Impressions: Service Date/Time: Wednesday, September 14, 2016 14:21 - CONCLUSION: Superficial thrombosed left cephalic vein associated with the PICC line. Shen Scott MD FACR Lower Extremity Ultrasound 09/14/16 0000 Signed Impressions: Service Date/Time: Wednesday, September 14, 2016 14:02 - CONCLUSION: There is normal compressibility of the deep venous system from the inguinal region to the proximal calf. No echogenic clot is seen in the lumen of the common femoral, femoral, popliteal, and posterior tibial veins. There is a normal response of the venous system to proximal and distal augmentation and respiration. CONCLUSION: Negative for deep venous thrombosis. Shen Scott MD Chest X-Ray 09/13/16 0000 Signed Impressions: Service Date/Time: August 05:15 - CONCLUSION: Mild central pulmonary vascular congestion. Chintan Donovan MD CT Angiography 09/13/16 0000 Signed Impressions: Service Date/Time: August 17:11 - CONCLUSION: Small segmental pulmonary emboli in the left lower lobe. No evidence of main pulmonary artery or lobar pulmonary emboli. Small patchy areas of airspace disease without evidence of segmental or lobar consolidation. Dae Herrera MD Abdomen/Pelvis CT 09/12/16 1234 Signed Impressions: Service Date/Time: Monday, September 12, 2016 18:05 - CONCLUSION: 1. No inflammatory changes are seen within the abdomen or pelvis. Scott Pastor MD Abdomen X-Ray 09/06/16 0000 Signed Impressions: Service Date/Time: August 15:49 - CONCLUSION: 1. Nonspecific bowel gas pattern without evidence for obstruction or free air. Adrian Rendon MD Soft Tissue Ultrasound 08/31/16 0000 Signed Impressions: Service Date/Time: Wednesday, August 31, 2016 21:56 - CONCLUSION: Negative Shashi Mera MD Objective Remarks GENERAL: Patient is obese female in NAD sitting up in bedside chair. SKIN: Warm and dry. Patient with ostomy bag covering repaired fistula. There is a wound VAC from a second site in the mid abdomen. Both sides have good seals at this time. Ostomy output is orange-brown, liquid consistency, without evidence of bleeding. Skin surrounding the fistula mildly erythematous but improved. The belly is not tender HEENT: Normocephalic. Atraumatic. EOMI. No scleral icterus. No injection or drainage. No nasal drainage. Moist mucous membranes. CARDIOVASCULAR: Regular rate and rhythm without murmurs, gallops, or rubs. RESPIRATORY: Clear to auscultation bilaterally without crackles or wheeze. 1+ pulses in upper extremities and lower extremities bilaterally GASTROINTESTINAL: Abdomen obese, bowel sounds normal. Nontender. See skin above. MUSCULOSKELETAL: No notable edema of bilateral lower extremities. No calf tenderness. NEURO: Awake and alert. 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 PERSONAL ASSISTANT grossly intact. (Brett Beth MD R2) A/P Assessment and Plan 65-year-old female who recently had exploration in [place] with 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 She has had a prolonged hospital stay due to recurrent sepsis bacteremia and new finding of a left lower lobe pulmonary embolism. Discharge Planning Discharge withheld after pt developed Gram + bacteremia and sepsis 09/13, Pulmonary embolism 09/15, and fungal growth in his Blood cxs 09/19. (Brett Beth MD R2) Attending Attestation Pt. examined and case discussed with resident physician I have read the above note and agree with the assessment/plan as discussed with me I was involved in all medical decision making for this patient Fred Mckinney MD (Fred Mckinney MD) Problem List: (1) Gram positive septicemia Status: Acute Plan: Patient clinically decompensated approximately one week ago with fever, leukocytosis, tachycardia. Repeat blood cultures on 09/13 grew staph epidermidis. Repeat blood cultures on 09/15 she currently show no growth today. Vancomycin IV initiated on 09/12, however, blood cultures not clear of infection until 09/15. We'll continue IV antibiotics to complete a 7-day course with negative blood cultures, end date 09/22/16. Hospital course: Gram positive cocci in 3 out of 4 blood cx. PICC removed on 09/13. Afebrile x 24 hrs. Leukocytosis resolved. Blood culture 09/11 showing staph epidermidis in both bottles Repeat blood cultures 09/13 secondary to new-onset fever showed staph epidermidis in 1/2 bottle Repeat blood culture 09/15 showing no growth to date Vancomycin 1750 g IV q24h (started 09/12) Soledad Albicans 09/15 - ID recommends giving Micofungin 150 mg q 24 hr IV x 2 weeks. Infectious disease consult was placed (2) Pulmonary embolism Status: Acute Plan: Small segmental PE in Left lower lobe shown on CTA 09/13/16 Pt with bleeding from left lower quadrant fistula 09/14, now resolved. H&H decrease from 10.3 on 09/15 noted. Currently 9.0 this morning. No obvious signs of bleeding at this time. On IV fluids so this may be dilutional. We'll follow-up hematology recs. On Lovenox 60 mg q12h. Trending H&H. Monitor for signs of bleeding. Appreciate Heme recs regarding PE management as an inpatient and discharge planning. 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 General Surgery consulted at admission. 07/28: Status post incision and drainage and washout of left abdominal wall, with wound vac placement due to small bowel fistula Wound VAC changes at bedside by wound care team -Pain control with Manning 7.5325 Q4hrs prn pain 610, morphine 2 mg IV q3h prn breakthrough, hold if SBP < 110 or DBP < 60 -Dilaudid when necessary with wound changes Imaging 07/28 - Abdomen/Pelvis CT: Diffuse and extensive subcutaneous emphysema around the abdominal wall from patient's right lateral abdominal wall across midline to left lateral abdominal wall. Fluid collection in anterior left abdominal wall suspicious for subcutaneous abscess. Nonspecific edema throughout subcutaneous tissues. No acute intra-abdominal or pelvic pathology. -Chest x-ray repeated on 09/01 - no acute cardiopulmonary abnormality appreciated -Repeat CT of abdomen and pelvis with IV contrast 09/12 showing overall improvement and no acute changes Prior antibiotics: - Vancomycin, pharm consult (07/28-08/13), restarted 09/12 -- - Cefepime 2gm IV q8h (07/28-08/13) - Flagyl 500 mg IV q6h (07/28-08/13) 09/10/2016: Slight elevation in white blood cells. From 10,000-13,000. We'll continue to monitor. Patient at high risk for wound infection. If stable, anticipate discharge on 09/11/2016. 09/11/2016: WBC elevated to 16.3K, trending upward. Patient without vital sign changes. Initiating sepsis workup. CXR with no acute process. UA showing trace leukocytes, in patient with foul smelling urine. UCx ordered. Rocephin 1g IV q24h x 2 ordered. 09/12/2016: WBC persistently elevated but stable at 16,000. Mildly increased temperatures of 100.2. UA was negative for infection. Chest x-ray no acute process. Rocephin was switched to the antibiotics above. Blood cultures were noted to be positive for gram-positive cocci in pairs and clusters. 09/13/16: patient improved symptomatically, but tachycardia and fever noted today. Will obtain CTA and echocardiogram to rule out PE/cardiac dyskinesis 09/14/16: Bleeding from ostomy site, 20 cc, decrease in Hg from 11.5 --> 10.3. CTA showed small PE in LL Lobe. Symptoms (fevers, chills, hemoptysis) improving. 09/15/16: No further bleeding from the ostomy site. Hg stable at 10.3. Patient having increased Lovenox frequency started this morning, now Lovenox 40 mg sq q12h. Asymptomatic. 09/16/16. No bleeding from ostomy site. Hemoglobin is 9.3. Continue Lovenox 40 mg subQ BID, heme has been consulted. Patient is clinically improved today. 09/17/16: AFVSS - still high output through coloenteric fistula. Sepsis resolved. Lovenox 60 mg subcutaneous BID initiated 09/17/16: Tmax 99.9F over the last 24 hours. She feels great. Vital signs are stable. IV vancomycin continued, end date 09/22/16. Pending recs from general surgery and hematology regarding discharge planning 09/18/16: VSSAF. (4) Physical deconditioning Status: Acute Plan: Patient physically deconditioned after staying in bed for extended period of time. Nursing order to get patient out of bed at least 3 times a day as tolerated with assistance -PT recommends PT at rehabilitation. -Continue PT workouts while inpatient (5) Urinary tract infection Status: Resolved Plan: Resolved. Abx history: Rocephin 08/31-09/01 Ciprofloxacin 08/23-08/31 Vanc 09/11-present (6) Anemia Status: Acute Plan: - Hemoglobin stable but anemic. She is on IV fluids at approximately half maintenance. - Continue to monitor BMP and CBC - Iron panel suggestive of anemia of chronic disease - B12 and Folate both elevated -Continue to monitor H&H as outpatient (7) Skin rash Status: Resolved Plan: Rash improved - Completed 7 day course of fluconazole on 09/03 Nystatin powder for groin, axilla, area under breasts, and skin folds Clotrimazole cream for back of neck (8) Depression Status: Chronic Plan: -Continue home Cymbalta 30 mg by mouth daily (9) Lower extremity edema Status: Resolved Plan: Resolved Patient with no pitting edema of bilateral lower extremities on exam. - SCDs - 20 mg Lasix po daily, 25 meq potassium (10) Nutrition, metabolism, and development symptoms Status: Acute Plan: Fluids: NS at 82 ml/hr. Electrolytes: Monitor and replete as needed Nutrition: By mouth regular diet. DVT PPX: SCDs and Lovenox; risk of DVT and PE greater than risk for chronic wound bleeding GI PPX: Pantoprazole BID. dw Dr. Mckinney. (Brett Beth MD R2) Problem Qualifiers (1) Pulmonary embolism: Qualified Code: I26.99 - Other acute pulmonary embolism without acute cor pulmonale (2) Urinary tract infection: Qualified Code: N30.01 - Acute cystitis with hematuria (3) Anemia: (4) Depression: Qualified Code: F33.9 - Recurrent major depressive disorder, remission status unspecified (5) Lower extremity edema: Qualified Code: R60.0 - Bilateral edema of lower extremity Brett Beth MD R2 Sep 19, 2016 12:16 Fred Mckinney MD Sep 19, 2016 22:07
[2016-09-19] MEDS: MICAFUNGIN INJ 150 MG in SODIUM CHLORIDE 0.9% INJ 100 ML IV SCH (12:38)
[2016-09-19] MEDS: ONDANSETRON HCL 4 MG/2 ML VIAL IV PUSH PRN ×2 (12:54→21:19)
--- NOTE | 2016-09-19 13:55 | HHI.IDPN ---
Subjective Subjective Remarks pt is feeling nauseaous no fever 2nd clx is also + for yeast Denies vision changes or floaters on micafungin Antibiotics vancomycin micafungin Allergies: Coded Allergies: Penicillin (Verified Allergy, Severe, rash, 07/28/16) Objective . Vital Signs Date Time Temp Pulse Resp B/P Pulse Ox O2 Delivery O2 Flow Rate FiO2 09/19/16 12:00 98.2 82 17 106/81 95 09/19/16 08:00 97.6 84 16 105/52 97 09/19/16 00:00 98.7 86 17 113/60 96 09/18/16 20:00 99.2 91 17 104/58 96 09/18/16 16:00 95.6 98 16 103/57 96 09/18/16 09/18/16 09/19/16 15:00 23:00 07:00 Intake Total 120 ml 240 ml 240 ml Output Total 2000 ml 1000 ml Balance 120 ml -1760 ml -760 ml Intake Oral 120 ml 240 ml 240 ml Drainage Total 2000 ml 1000 ml # Voids 4 3 3 # Bowel Movements 0 . Laboratory Tests Test 09/18/16 09/19/16 03:50 03:41 White Blood Count 9.4 TH/MM3 7.3 TH/MM3 Red Blood Count 3.41 MIL/MM3 3.50 MIL/MM3 Hemoglobin 9.0 GM/DL 9.3 GM/DL Hematocrit 27.9 % 28.7 % Mean Corpuscular Volume 81.9 FL 82.2 FL Mean Corpuscular Hemoglobin 26.5 PG 26.7 PG Mean Corpuscular Hemoglobin 32.4 % 32.5 % Concent Red Cell Distribution Width 17.1 % 17.2 % Platelet Count 354 TH/MM3 395 TH/MM3 Mean Platelet Volume 7.2 FL 6.9 FL Neutrophils (%) (Auto) 78.6 % 67.1 % Lymphocytes (%) (Auto) 13.6 % 21.7 % Monocytes (%) (Auto) 4.6 % 8.2 % Eosinophils (%) (Auto) 2.1 % 2.5 % Basophils (%) (Auto) 1.1 % 0.5 % Neutrophils # (Auto) 7.4 TH/MM3 4.9 TH/MM3 Lymphocytes # (Auto) 1.3 TH/MM3 1.6 TH/MM3 Monocytes # (Auto) 0.4 TH/MM3 0.6 TH/MM3 Eosinophils # (Auto) 0.2 TH/MM3 0.2 TH/MM3 Basophils # (Auto) 0.1 TH/MM3 0.0 TH/MM3 CBC Comment DIFF FINAL DIFF FINAL Differential Comment Laboratory Tests Test 09/19/16 03:41 Sodium Level 141 MEQ/L Potassium Level 3.4 MEQ/L Chloride Level 111 MEQ/L Carbon Dioxide Level 19.1 MEQ/L Anion Gap 11 MEQ/L Blood Urea Nitrogen 9 MG/DL Creatinine 0.74 MG/DL Estimat Glomerular Filtration 79 ML/MIN Rate Random Glucose 94 MG/DL Calcium Level 8.9 MG/DL Imaging Last Impressions Upper Extremity Ultrasound 09/14/16 0000 Signed Impressions: Service Date/Time: Wednesday, September 14, 2016 14:21 - CONCLUSION: Superficial thrombosed left cephalic vein associated with the PICC line. Shen Scott MD FACR Lower Extremity Ultrasound 09/14/16 0000 Signed Impressions: Service Date/Time: Wednesday, September 14, 2016 14:02 - CONCLUSION: There is normal compressibility of the deep venous system from the inguinal region to the proximal calf. No echogenic clot is seen in the lumen of the common femoral, femoral, popliteal, and posterior tibial veins. There is a normal response of the venous system to proximal and distal augmentation and respiration. CONCLUSION: Negative for deep venous thrombosis. Shen Scott MD Chest X-Ray 09/13/16 0000 Signed Impressions: Service Date/Time: August 05:15 - CONCLUSION: Mild central pulmonary vascular congestion. Chintan Donovan MD CT Angiography 09/13/16 0000 Signed Impressions: Service Date/Time: August 17:11 - CONCLUSION: Small segmental pulmonary emboli in the left lower lobe. No evidence of main pulmonary artery or lobar pulmonary emboli. Small patchy areas of airspace disease without evidence of segmental or lobar consolidation. Dae Herrera MD Abdomen/Pelvis CT 09/12/16 1234 Signed Impressions: Service Date/Time: Monday, September 12, 2016 18:05 - CONCLUSION: 1. No inflammatory changes are seen within the abdomen or pelvis. Scott Pastor MD Abdomen X-Ray 09/06/16 0000 Signed Impressions: Service Date/Time: August 15:49 - CONCLUSION: 1. Nonspecific bowel gas pattern without evidence for obstruction or free air. Adrian Rendon MD Soft Tissue Ultrasound 08/31/16 0000 Signed Impressions: Service Date/Time: Wednesday, August 31, 2016 21:56 - CONCLUSION: Negative Shashi Mera MD Physical Exam CONSTITUTIONAL/GENERAL: This is a morbidly obese female patient, in no apparent distress. SKIN: No jaundice, rashes, or lesions. Skin temperature appropriate. Not diaphoretic. CARDIOVASCULAR: Regular rate and rhythm without murmurs, gallops, or rubs. No JVD. Peripheral pulses symmetric. RESPIRATORY/CHEST: Symmetric, unlabored respirations. Clear to auscultation. Breath sounds equal bilaterally. No wheezes, rales, or rhonchi. GASTROINTESTINAL: Abdomen soft, non-tender, nondistended. No hepato-splenomegaly , or palpable masses. No guarding. Bowel sounds present. 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 NEUROLOGICAL: Awake and alert.NOn focal LINES: LUE periferal line - site looks OK Assessment & Plan Remarks High grade staph epi bacteremia - likely from PICC - removed Abdominal wall abscess on admission, sp tx Enterocutaneous fistual, high output C.albicans fungemia - Superficial thrombosed left cephalic vein associated with the PICC line complete vancomycin (sp7 day following removal of the catheter ) change Micafungin to fluconazole high dose Fu ID on yeast 2 D echo ophalmologist consult once clears fungemia if persistent fungemia will get CT A/P Anticipate at least 2 weeks of antifungals dw Ella Robertson MD Sep 19, 2016 13:55
[2016-09-19] MEDS ORDERED: FLUCONAZOLE 400 MG PREMIX BAG 400 ML IV SCH (15:00)
[2016-09-19 20:00] VITALS: BP 111/59; PULSE 89; RESP 18; TEMP 97.2; O2SAT 96
--- NOTE | 2016-09-19 20:00 | ECHLIM ---
Study Study Date:09/19/2016 STUDY CONCLUSIONS SUMMARY LEFT VENTRICLE: The cavity size was normal. Wall thickness was normal. Systolic function was normal. The estimated ejection fraction was 60%. Wall motion was normal; there were no regional wall motion abnormalities. If LV function is below 40, please consider prescribing an ACEI or ARB or document rationale for non-use. PROCEDURE DATA STUDY STATUS: Elective. Procedure: Transthoracic echocardiography. Image quality was good. Scanning was performed from the parasternal, apical, and subcostal acoustic windows. Study completion: The patient tolerated the procedure well. Transthoracic echocardiography. M-mode, complete 2D, complete spectral Doppler, and color Doppler. Height: Height: 61in. Weight: Weight: 250.5lb. Body mass index: BMI: 47.4kg/m^2. Body surface area: BSA: 2.08m^2. Patient status: Inpatient. CARDIAC ANATOMY LEFT VENTRICLE: The cavity size was normal. Wall thickness was normal. Systolic function was normal. The estimated ejection fraction was 60%. Wall motion was normal; there were no regional wall motion abnormalities. AORTIC VALVE: Trileaflet; normal thickness leaflets. Doppler: Transvalvular velocity was within the normal range. There was no stenosis. No regurgitation. AORTA: Aortic root: The aortic root was normal in size. MITRAL VALVE: Structurally normal valve. Doppler: Transvalvular velocity was within the normal range. There was no evidence for stenosis. No regurgitation. LEFT ATRIUM: The atrium was normal in size. RIGHT VENTRICLE: The cavity size was normal. Wall thickness was normal. PULMONIC VALVE: Doppler: Transvalvular velocity was within the normal range. There was no evidence for stenosis. No regurgitation. TRICUSPID VALVE: Structurally normal valve. Doppler: Transvalvular velocity was within the normal range. Trace regurgitation. PULMONARY ARTERY: The main pulmonary artery was normal-sized. Systolic pressure was within the normal range. RIGHT ATRIUM: The atrium was normal in size. PERICARDIUM: There was no pericardial effusion. SYSTEMIC VEINS: Inferior vena cava: The vessel was normal in size. Patient weight: 250.5lb _Ejection fraction:_ 65-75% _Fractional shortening:_ 32% up to 5Kg 5-11.5Kg 11.6-22.9Kg 23-45Kg 45-57Kg Aortic Root 7-13 <17 13-22 17-27 17-27 LA diam 6-13 <23 24-38 33-47 37-40 RVID 10-17 7-15 7-15 7-18 8-17 LVIDd 12-22 <32 24-38 33-47 37-40 LVPW 2-4 3-6 5-7 6-8 7-8 IVS 2-4 3-6 5-7 6-8 7-8 BASIC MEASUREMENTS ADULT NORMAL Left ventricle LV internal dimension, ED, chordal level, 46.8 mm 43-52 PLAX LV internal dimension, ES, chordal level, 31.5 mm 23-38 PLAX Fractional shortening, chordal level, PLAX 33 % >29 LV posterior wall thickness, ED 7.69 mm IVS/LVPW ratio, ED 1.08 <1.3 Ventricular septum Septal thickness, ED 8.32 mm Left atrium Anterior-posterior dimension 20 mm Anterior-posterior dimension index 0.96 cm/m^2 <2.2 DOPPLER MEASUREMENTS ADULT NORMAL Mitral valve Peak E-wave velocity 70.1 cm/s Peak A-wave velocity 88.8 cm/s Deceleration time 204 ms 150-230 Peak E/A ratio 0.8 Tricuspid valve Regurgitant peak velocity 250 cm/s Peak RV-RA gradient, S 25 mm Hg Maximal regurgitant velocity 250 cm/s Pulmonic valve Peak velocity, S 95.5 cm/s LEGEND: Mean values are shown as u=mean value. Asterisk (*) squires values outside specified normal range. Prepared and signed by Karena Ladd [id number]
[2016-09-19] MEDS: PRAMIPEXOLE DIHYDROCHLORIDE 0.25 MG TAB PO SCH (21:19)
[2016-09-19] MEDS: SODIUM CHLORIDE 0.9% FLUSH 5 ML FLUSH IVF PRN (21:24)
[2016-09-19] MEDS: ZOLPIDEM TARTRATE 5 MG TAB PO PRN (23:07)
[2016-09-20] VITALS: BP 100/60; PULSE 80; RESP 16; TEMP 97.6; O2SAT 95
[2016-09-20] MEDS: SODIUM CHLOR 0.9% 1000 ML INJ 1,000 ML IV SCH ×3 (01:26→22:19)
[2016-09-20] MEDS: ACETAMINOPHEN/HYDROcodone 325 MG/7.5 MG TAB PO PRN ×4 (03:57→18:32)
[2016-09-20 05:35] LABS: AUTOMATED NEUTROPHIL # 4.9 TH/MM3 (1.8-7.7); BASOPHIL % 0.5 % (0.0-2.0); EOSINOPHIL # 0.2 TH/MM3 (0-0.4); HEMATOCRIT 28.6 % (35.0-46.0); MEAN CELL VOLUME 83.6 FL (80.0-100.0); MEAN CORPUSCULAR HEMOGLOBIN 26.6 PG (27.0-34.0); MEAN CORPUSCULAR HGB CONC 31.8 % (32.0-36.0); MONO % 7.3 % (0.0-8.0); NEUT % 63.2 % (16.0-70.0); PLATELET COUNT 400 TH/MM3 (150-450); RED BLOOD COUNT 3.42 MIL/MM3 (4.00-5.30); RED CELL DISTRIBUTION WIDTH 17.2 % (11.6-17.2); WHITE BLOOD COUNT 7.7 TH/MM3 (4.0-11.0)
[2016-09-20 05:59] LABS: BICARBONATE 20.1 MEQ/L (21.0-32.0)
[2016-09-20 06:13] LABS: HEMO FLAGS AUTO DIFF
[2016-09-20] MEDS: ONDANSETRON HCL 4 MG/2 ML VIAL IV PUSH PRN ×3 (06:13→22:19)
[2016-09-20] MEDS: SODIUM CHLORIDE 0.9% FLUSH 5 ML FLUSH IVF PRN (06:14)
[2016-09-20] MEDS: OCTREOTIDE INJ 100 MCG/ML VIAL IV PUSH SCH ×3 (06:14→22:19)
[2016-09-20 07:00] LABS: BANDS 8 % (0-6); EOSINOPHILS 3 % (0-4); METAMYELOCYTES 1 % (0-1); NEUTROPHIL # MANUAL DIFF 4.9 TH/MM3 (1.8-7.7); POLYS (SEG NEUTROPHILS) 54 % (16-70); WBC DIFF SAMPLE 100
[2016-09-20 07:01] LABS: PLATELET ESTIMATE SMEAR NORMAL (NORMAL); PLATELET MORPHOLOGY NORMAL (NORMAL); SCAN/DIFF FINAL DIFF MANUAL
[2016-09-20 08:00] VITALS: BP 121/59; PULSE 74; RESP 16; TEMP 98.1; O2SAT 97
[2016-09-20] MEDS: NYSTATIN 100,000 U/GM PWD 15 GM BTL TOPICAL SCH ×2 (09:00→21:00)
[2016-09-20] MEDS: CLOTRIMAZOLE 1% CREAM 15 GM TOPICAL SCH ×2 (09:00→21:00)
[2016-09-20] MEDS: SODIUM CHLORIDE 0.9% FLUSH 5 ML FLUSH IVF SCH ×2 (09:00→22:17)
--- NOTE | 2016-09-20 10:19 | PD.ONC.PN ---
Subjective Subjective Remarks Afebrile overnight. Patient resting with at bedside. She states she has worked with physical therapy some, but wishes she could get up and move around more. Denies any obvious bleeding. wants to know how long she will need to be on anticoagulation for. Objective Data Date Time Temp Pulse Resp B/P Pulse Ox O2 Delivery O2 Flow Rate FiO2 09/20/16 08:00 98.1 74 16 121/59 97 09/20/16 05:03 18 09/20/16 00:00 97.6 80 16 100/60 95 09/19/16 20:00 97.2 89 18 111/59 96 09/19/16 12:00 98.2 82 17 106/81 95 Result Diagram: 09/20/16 0402 09/20/16 0402 Laboratory Results Laboratory Tests Test 09/20/16 04:02 White Blood Count 7.7 TH/MM3 Red Blood Count 3.42 MIL/MM3 Hemoglobin 9.1 GM/DL Hematocrit 28.6 % Mean Corpuscular Volume 83.6 FL Mean Corpuscular Hemoglobin 26.6 PG Mean Corpuscular Hemoglobin 31.8 % Concent Red Cell Distribution Width 17.2 % Platelet Count 400 TH/MM3 Mean Platelet Volume 6.9 FL Neutrophils (%) (Auto) 63.2 % Lymphocytes (%) (Auto) 26.0 % Monocytes (%) (Auto) 7.3 % Eosinophils (%) (Auto) 3.0 % Basophils (%) (Auto) 0.5 % Neutrophils # (Auto) 4.9 TH/MM3 Lymphocytes # (Auto) 2.0 TH/MM3 Monocytes # (Auto) 0.6 TH/MM3 Eosinophils # (Auto) 0.2 TH/MM3 Basophils # (Auto) 0.0 TH/MM3 CBC Comment AUTO DIFF Differential Total Cells 100 Counted Neutrophils % (Manual) 54 % Band Neutrophils % 8 % Lymphocytes % 28 % Monocytes % 6 % Eosinophils % 3 % Neutrophils # (Manual) 4.9 TH/MM3 Metamyelocytes 1 % Differential Comment FINAL DIFF MANUAL Platelet Estimate NORMAL Platelet Morphology Comment NORMAL Sodium Level 141 MEQ/L Potassium Level 4.0 MEQ/L Chloride Level 111 MEQ/L Carbon Dioxide Level 20.1 MEQ/L Anion Gap 10 MEQ/L Blood Urea Nitrogen 9 MG/DL Creatinine 0.99 MG/DL Estimat Glomerular Filtration 56 ML/MIN Rate Random Glucose 125 MG/DL Calcium Level 8.8 MG/DL Culture Results Microbiology Date/Time Procedure Status Source Growth 09/19/16 14:15 Aerobic Blood Culture Received Blood Peripheral Pending 09/19/16 14:15 Anaerobic Blood Culture Received Blood Peripheral Pending 09/19/16 14:20 Aerobic Blood Culture Received Blood Peripheral Pending 09/19/16 14:20 Anaerobic Blood Culture Received Blood Peripheral Pending Administered Medications Medications (Trade) Dose Ordered Sig/Johnie Route PRN Reason Start Time Stop Time Status Last Admin Dose Admin Miscellaneous Information Patient in critical care unit? Ass... [id number] XX 07/28/16 23:45 07/28/16 23:45 IV Flush (NS Flush) 2 ml UNSCH PRN IVF FLUSH AFTER USING IV ACCESS 07/29/16 12:15 09/20/16 06:14 IV Flush (NS Flush) 2 ml BID IVF 07/29/16 21:00 09/19/16 21:21 Acetaminophen/ Hydrocodone Bitart ([place] 7.5-325 Mg) 1 tab Q4H PRN PO PAIN SCALE 6 TO 10 07/30/16 11:00 09/20/16 03:57 Morphine Sulfate (Morphine Inj) 2 mg Q3H PRN IV PUSH BREAKTHROUGH PAIN 07/30/16 11:00 08/05/16 02:35 Zolpidem Tartrate (Ambien) 5 mg HS PRN PO INSOMNIA 07/30/16 21:00 09/19/16 23:07 Pramipexole Dihydrochloride (Mirapex) 0.5 mg HS@2000 PO 08/03/16 20:00 09/19/16 21:19 Furosemide (Lasix) 20 mg DAILY PO 08/05/16 09:00 09/19/16 09:01 Lactobacillus Acidophilus (Lactinex) 1 tab TID PO 08/13/16 18:00 09/19/16 16:52 Hydromorphone HCl (Dilaudid Pf Inj) 1 mg MoWeFr PRN IV DRESSING CHANGES 08/15/16 10:30 08/28/16 21:58 Bisacodyl (Dulcolax Supp) 10 mg DAILY PRN RECTAL constipation 08/17/16 11:00 09/08/16 12:11 Clotrimazole (Lotrimin 1% Cream) 1 applic Q12HR TOPICAL 08/22/16 15:00 09/19/16 21:00 Nystatin (Mycostatin Powder) 1 applic Q12HR TOPICAL 08/22/16 15:00 09/19/16 21:00 Octreotide Acetate (SandoSTATIN INJ) 100 mcg Q8HR IV PUSH 08/23/16 22:00 09/20/16 06:14 Multi-Ingredient Ointment (Eucerin Cream) 1 applic Q6H PRN TOPICAL ITCHING 08/24/16 14:00 09/14/16 11:35 Diphenhydramine HCl (Benadryl 2% Cream) 1 applic TID PRN TOPICAL ITCHING 08/24/16 14:00 09/03/16 09:15 Ondansetron HCl (Zofran Inj) 4 mg Q6HR PRN IV PUSH NAUSEA OR VOMITING 08/28/16 16:00 09/20/16 06:13 Acetaminophen (Tylenol) 650 mg Q6HR PRN PO TEMP>101F, PAIN 1-10, HEADACHE 08/30/16 14:30 09/13/16 12:43 Duloxetine HCl (Cymbalta Dr) 30 mg DAILY PO 09/01/16 11:00 09/19/16 09:01 Alteplase, Recombinant (Cathflo Activase Inj) 2 mg Q2H PRN INTRACATH OCCLUDED CATHETER 09/03/16 07:45 09/12/16 07:42 Senna/Docusate Sodium (Annette-Colace) 2 tab BID PO 09/08/16 21:00 09/19/16 21:19 Polyethylene Glycol (Miralax) 17 gm DAILY PO 09/08/16 12:00 09/19/16 09:04 Acetaminophen/ Butalbital/ Caffeine 1 tab 1 tab Q6H PRN PO HEADACHE 09/12/16 10:45 09/12/16 14:01 Sodium Chloride (NS 1000 ml Inj) 1,000 ml @ 84 mls/hr [id number] IV 09/12/16 14:30 09/20/16 01:26 Insulin Detemir (Levemir Inj) 5 units Q12HR SQ 09/12/16 21:00 09/19/16 09:02 Pantoprazole Sodium (Protonix) 40 mg BID PO 09/13/16 22:30 09/19/16 21:18 Enoxaparin Sodium (Lovenox Inj) 60 mg Q12H SQ 09/17/16 09:00 09/19/16 21:18 Objective Remarks GENERAL: Pleasant female, lying supine in bed SKIN: Warm and dry. HEAD: Normocephalic. EYES: No injection or drainage. NECK: Supple, trachea midline. CARDIOVASCULAR: Regular rate and rhythm RESPIRATORY: Breath sounds equal bilaterally. No accessory muscle use. GASTROINTESTINAL: obese abdomen. ostomy bag with stool in place, no bleeding. EXTREMITIES: No cyanosis. no edema. NEUROLOGICAL: Awake and alert, normal speech. moving extremities. Assessment/Plan Problem List: (1) Pulmonary embolism Status: Acute Plan: 09/20/2016: continue Lovenox 60mg SQ q 12. hgb remains stable. 09/17/2016: Lovenox dosing increased to 60 mg subcutaneous every 12 hours. 09/16: slight decrease in hemoglobin with no obvious bleeding. would continue current dose of Lovenox and check H/H at noon. If there is further evidence of fall or bleeding, would reduce or d/c Lovenox. 09/15 --increased to Lovenox 40mg SQ BID 08/13-09/14: on Lovenox 40mg SQ daily 09/13: CTA shows PE. (2) Anemia Status: Acute Plan: --received iron sucrose infusions from 09/16/2016--09/18/2016 Assessment 65y/o female with competing needs of PE vs. intermittently bleeding colocutaneous fistula. (History from initial consult) Ms. Menard is a 65-year-old female who has been hospitalized at this facility since late July 2016. The patient was admitted initially due to swelling and pain involving her abdomen, specifically in the left lower quadrant. She has a history of multiple abdominal surgeries including gastric bypass as well as multiple surgeries for abdominal wall hernias and fistula repair. It is apparent based on clinical exam that shortly after her admission she was noted to have a large abscess involving the abdominal wall. She underwent incision and drainage of this. The first surgery was performed on 08/02/2016. She subsequently underwent extensive debridement of necrotic tissue and was found to have a fistula tract going into the colon. A wound vac was placed and she was initiated on antibiotics. Over the course of this hospitalization she has had multiple surgical dbridements. 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 In fact most of her stools are coming out of the colocutaneous fistula. For management of her antibiotics she did have a left upper extremity PICC line placed. The PICC line was removed on 09/14/2015 and the patient reports noting immediate onset difficulty breathing. CT angiogram was done which revealed a subsegmental pulmonary emboli involving the left lower lobe. She was initiated on anticoagulation. However, she was noted to have increased bleeding from the fistula site, the bleeding was described as red blood. Subsequent ultrasound Doppler studies of the upper and lower extremities indicated no evidence of lower extremity deep venous thromboses but she was found to have a superficial venous thrombosis involving the left cephalic vein (ipsilateral to the PICC line). Plan 1. continue Lovenox at same dose of 60mg SQ q 12 hours. continue to monitor CBC daily while inpatient 2. I spoke with new patient referrals, they are working on arranging follow up in our clinic once patient is discharged. Problem Qualifiers (1) Pulmonary embolism: Qualified Code: I26.99 - Other acute pulmonary embolism without acute cor pulmonale (2) Anemia: Ana Butt Sep 20, 2016 10:18
--- NOTE | 2016-09-20 10:38 | HHI.FPPN ---
Subjective Remarks Feels good today. No CP N V SOB OR ABD PAIN. AF VSS. ECHO performed yesterday given alpesh in blood. Objective Vitals Vital Signs Date Time Temp Pulse Resp B/P Pulse Ox O2 Delivery O2 Flow Rate FiO2 09/20/16 08:00 98.1 74 16 121/59 97 09/20/16 05:03 18 09/20/16 00:00 97.6 80 16 100/60 95 09/19/16 20:00 97.2 89 18 111/59 96 09/19/16 12:00 98.2 82 17 106/81 95 I/O 09/19/16 09/19/16 09/19/16 09/20/16 09/20/16 09/20/16 07:00 15:00 23:00 07:00 15:00 23:00 Intake Total 240 ml 1697 ml 579 ml 956 ml Output Total 1000 ml 1275 ml 0 ml 0 ml Balance -760 ml 422 ml 579 ml 956 ml Intake Oral 240 ml 360 ml 240 ml 240 ml IV Total 1337 ml 339 ml 716 ml Output Urine Total 250 ml Drainage Total 1000 ml 1025 ml 0 ml 0 ml # Voids 3 2 3 # Bowel Movements 0 0 0 Result Diagram: 09/20/16 0402 09/20/16 0402 Imaging Last Impressions Upper Extremity Ultrasound 09/14/16 0000 Signed Impressions: Service Date/Time: Wednesday, September 14, 2016 14:21 - CONCLUSION: Superficial thrombosed left cephalic vein associated with the PICC line. Shen Scott MD FACR Lower Extremity Ultrasound 09/14/16 0000 Signed Impressions: Service Date/Time: Wednesday, September 14, 2016 14:02 - CONCLUSION: There is normal compressibility of the deep venous system from the inguinal region to the proximal calf. No echogenic clot is seen in the lumen of the common femoral, femoral, popliteal, and posterior tibial veins. There is a normal response of the venous system to proximal and distal augmentation and respiration. CONCLUSION: Negative for deep venous thrombosis. Shen Scott MD Chest X-Ray 09/13/16 0000 Signed Impressions: Service Date/Time: August 05:15 - CONCLUSION: Mild central pulmonary vascular congestion. Chintan Donovan MD CT Angiography 09/13/16 0000 Signed Impressions: Service Date/Time: August 17:11 - CONCLUSION: Small segmental pulmonary emboli in the left lower lobe. No evidence of main pulmonary artery or lobar pulmonary emboli. Small patchy areas of airspace disease without evidence of segmental or lobar consolidation. Dae Herrera MD Abdomen/Pelvis CT 09/12/16 1234 Signed Impressions: Service Date/Time: Monday, September 12, 2016 18:05 - CONCLUSION: 1. No inflammatory changes are seen within the abdomen or pelvis. Scott Pastor MD Abdomen X-Ray 09/06/16 0000 Signed Impressions: Service Date/Time: August 15:49 - CONCLUSION: 1. Nonspecific bowel gas pattern without evidence for obstruction or free air. Adrian Rendon MD Soft Tissue Ultrasound 08/31/16 0000 Signed Impressions: Service Date/Time: Wednesday, August 31, 2016 21:56 - CONCLUSION: Negative Shashi Mera MD Objective Remarks GENERAL: Patient is obese female in NAD sitting up in bedside chair. SKIN: Warm and dry. Patient with ostomy bag covering repaired fistula. There is a wound VAC from a second site in the mid abdomen. Both sides have good seals at this time. Ostomy output is orange-brown, liquid consistency, without evidence of bleeding. Skin surrounding the fistula mildly erythematous but improved. The belly is not tender HEENT: Normocephalic. Atraumatic. EOMI. No scleral icterus. No injection or drainage. No nasal drainage. Moist mucous membranes. CARDIOVASCULAR: Regular rate and rhythm without murmurs, gallops, or rubs. RESPIRATORY: Clear to auscultation bilaterally without crackles or wheeze. 1+ pulses in upper extremities and lower extremities bilaterally GASTROINTESTINAL: Abdomen obese, bowel sounds normal. Nontender. See skin above. MUSCULOSKELETAL: No notable edema of bilateral lower extremities. No calf tenderness. NEURO: Awake and alert. 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 [employer] grossly intact. 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 She has had a prolonged hospital stay due to recurrent sepsis bacteremia and new finding of a left lower lobe pulmonary embolism. Discharge Planning Discharge withheld after pt developed Gram + bacteremia and sepsis 09/13, Pulmonary embolism 09/15, and fungal growth in his Blood cxs 09/19. Problem List: (1) Gram positive septicemia Status: Acute Plan: Patient clinically decompensated approximately one week ago with fever, leukocytosis, tachycardia. Repeat blood cultures on 09/13 grew staph epidermidis. Repeat blood cultures on 09/15 she currently show no growth today. Vancomycin IV initiated on 09/12, however, blood cultures not clear of infection until 09/15. We'll continue IV antibiotics to complete a 7-day course with negative blood cultures, end date 09/22/16. Hospital course: Gram positive cocci in 3 out of 4 blood cx. PICC removed on 09/13. Afebrile x 24 hrs. Leukocytosis resolved. Blood culture 09/11 showing staph epidermidis in both bottles Repeat blood cultures 09/13 secondary to new-onset fever showed staph epidermidis in 1/2 bottle Repeat blood culture 09/15 showing no growth to date Vancomycin 1750 g IV q24h (started 09/12) Alpesh Albicans 09/15 - ID recommends giving Micofungin 150 mg q 24 hr IV x 2 weeks. ECHO pending. Infectious disease consult was placed (2) Pulmonary embolism Status: Acute Plan: Small segmental PE in Left lower lobe shown on CTA 09/13/16 Pt with bleeding from left lower quadrant fistula 09/14, now resolved. H&H decrease from 10.3 on 09/15 noted. Currently 9.0 this morning. No obvious signs of bleeding at this time. On IV fluids so this may be dilutional. We'll follow-up hematology recs. On Lovenox 60 mg q12h. Trending H&H. Monitor for signs of bleeding. Appreciate Heme recs regarding PE management as an inpatient and discharge planning. 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 General Surgery consulted at admission. 07/28: Status post incision and drainage and washout of left abdominal wall, with wound vac placement due to small bowel fistula Wound VAC changes at bedside by wound care team -Pain control with Ephraim 7.5325 Q4hrs prn pain 610, morphine 2 mg IV q3h prn breakthrough, hold if SBP < 110 or DBP < 60 -Dilaudid when necessary with wound changes Imaging 07/28 - Abdomen/Pelvis CT: Diffuse and extensive subcutaneous emphysema around the abdominal wall from patient's right lateral abdominal wall across midline to left lateral abdominal wall. Fluid collection in anterior left abdominal wall suspicious for subcutaneous abscess. Nonspecific edema throughout subcutaneous tissues. No acute intra-abdominal or pelvic pathology. -Chest x-ray repeated on 09/01 - no acute cardiopulmonary abnormality appreciated -Repeat CT of abdomen and pelvis with IV contrast 09/12 showing overall improvement and no acute changes Prior antibiotics: - Vancomycin, pharm consult (07/28-08/13), restarted 09/12 -- - Cefepime 2gm IV q8h (07/28-08/13) - Flagyl 500 mg IV q6h (07/28-08/13) 09/10/2016: Slight elevation in white blood cells. From 10,000-13,000. We'll continue to monitor. Patient at high risk for wound infection. If stable, anticipate discharge on 09/11/2016. 09/11/2016: WBC elevated to 16.3K, trending upward. Patient without vital sign changes. Initiating sepsis workup. CXR with no acute process. UA showing trace leukocytes, in patient with foul smelling urine. UCx ordered. Rocephin 1g IV q24h x 2 ordered. 09/12/2016: WBC persistently elevated but stable at 16,000. Mildly increased temperatures of 100.2. UA was negative for infection. Chest x-ray no acute process. Rocephin was switched to the antibiotics above. Blood cultures were noted to be positive for gram-positive cocci in pairs and clusters. 09/13/16: patient improved symptomatically, but tachycardia and fever noted today. Will obtain CTA and echocardiogram to rule out PE/cardiac dyskinesis 09/14/16: Bleeding from ostomy site, 20 cc, decrease in Hg from 11.5 --> 10.3. CTA showed small PE in LL Lobe. Symptoms (fevers, chills, hemoptysis) improving. 09/15/16: No further bleeding from the ostomy site. Hg stable at 10.3. Patient having increased Lovenox frequency started this morning, now Lovenox 40 mg sq q12h. Asymptomatic. 09/16/16. No bleeding from ostomy site. Hemoglobin is 9.3. Continue Lovenox 40 mg subQ BID, heme has been consulted. Patient is clinically improved today. 09/17/16: AFVSS - still high output through coloenteric fistula. Sepsis resolved. Lovenox 60 mg subcutaneous BID initiated 09/17/16: Tmax 99.9F over the last 24 hours. She feels great. Vital signs are stable. IV vancomycin continued, end date 09/22/16. Pending recs from general surgery and hematology regarding discharge planning 09/18/16: VSSAF. (4) Physical deconditioning Status: Acute Plan: Patient physically deconditioned after staying in bed for extended period of time. Nursing order to get patient out of bed at least 3 times a day as tolerated with assistance -PT recommends PT at rehabilitation. -Continue PT workouts while inpatient (5) Urinary tract infection Status: Resolved Plan: Resolved. Abx history: Rocephin 08/31-09/01 Ciprofloxacin 08/23-08/31 Vanc 09/11-present (6) Anemia Status: Acute Plan: - Hemoglobin stable but anemic. She is on IV fluids at approximately half maintenance. - Continue to monitor BMP and CBC - Iron panel suggestive of anemia of chronic disease - B12 and Folate both elevated -Continue to monitor H&H as outpatient (7) Skin rash Status: Resolved Plan: Rash improved - Completed 7 day course of fluconazole on 09/03 Nystatin powder for groin, axilla, area under breasts, and skin folds Clotrimazole cream for back of neck (8) Depression Status: Chronic Plan: -Continue home Cymbalta 30 mg by mouth daily (9) Lower extremity edema Status: Resolved Plan: Resolved Patient with no pitting edema of bilateral lower extremities on exam. - SCDs - 20 mg Lasix po daily, 25 meq potassium (10) Nutrition, metabolism, and development symptoms Status: Acute Plan: Fluids: NS at 82 ml/hr. Electrolytes: Monitor and replete as needed Nutrition: By mouth regular diet. DVT PPX: SCDs and Lovenox; risk of DVT and PE greater than risk for chronic wound bleeding GI PPX: Pantoprazole BID. raul Mckinney. Problem Qualifiers (1) Pulmonary embolism: Qualified Code: I26.99 - Other acute pulmonary embolism without acute cor pulmonale (2) Urinary tract infection: Qualified Code: N30.01 - Acute cystitis with hematuria (3) Anemia: (4) Depression: Qualified Code: F33.9 - Recurrent major depressive disorder, remission status unspecified (5) Lower extremity edema: Qualified Code: R60.0 - Bilateral edema of lower extremity Brett Beth MD R2 Sep 20, 2016 10:38
[2016-09-20] MEDS: PANTOPRAZOLE SOD 40 MG DELAYED RELEASE TAB PO SCH ×2 (11:13→22:17)
[2016-09-20] MEDS: LACTOBACILLUS ACIDOPHILUS TAB PO SCH ×3 (11:13→18:00)
[2016-09-20] MEDS: DULoxetine HCl DR 30 MG CAP PO SCH (11:13)
[2016-09-20] MEDS: DOCUSATE SODIUM 50 MG/SENNA 8.6 MG TAB PO SCH ×2 (11:13→22:17)
[2016-09-20] MEDS: INSULIN DETEMIR 100 UNITS/ML VIAL SQ SCH ×2 (11:14→22:18)
[2016-09-20] MEDS: POLYETHYLENE GLYCOL 17 GM PKG PO SCH (11:14)
[2016-09-20] MEDS: ENOXAPARIN SODIUM 60 MG/0.6 ML SYRINGE SQ SCH ×2 (11:14→22:18)
[2016-09-20] MEDS: FUROSEMIDE 20 MG TAB PO SCH (11:14)
[2016-09-20 12:00] VITALS: BP 123/60; PULSE 77; RESP 17; TEMP 98.4; O2SAT 98
[2016-09-20] MEDS: FLUCONAZOLE 400 MG PREMIX BAG 200 ML IV SCH (15:14)
[2016-09-20 16:00] VITALS: BP 127/68; PULSE 72; RESP 17; TEMP 97.4; O2SAT 98
[2016-09-20 20:00] VITALS: BP 109/67; PULSE 70; RESP 16; TEMP 97.4; O2SAT 95
[2016-09-20] MEDS: PRAMIPEXOLE DIHYDROCHLORIDE 0.25 MG TAB PO SCH (22:17)
[2016-09-20] MEDS: diphenhydrAMINE HCL 2%/ZINC ACETATE 0.1% CREAM 30 APPLIC/30 GM TUBE TOPICAL PRN (22:19)
[2016-09-20] MEDS: ZOLPIDEM TARTRATE 5 MG TAB PO PRN (22:48)
[2016-09-21] VITALS: BP 108/55; PULSE 77; RESP 16; TEMP 96.9; O2SAT 97
[2016-09-21 04:30] LABS: AUTOMATED NEUTROPHIL # 5.2 TH/MM3 (1.8-7.7); BASOPHIL # 0.1 TH/MM3 (0-0.2); BASOPHIL % 1.1 % (0.0-2.0); EOSINOPHIL # 0.2 TH/MM3 (0-0.4); EOSINOPHIL % 2.7 % (0.0-4.0); HEMATOCRIT 28.9 % (35.0-46.0); HEMO FLAGS DIFF FINAL; LYMPH % 21.3 % (9.0-44.0); LYMPHOCYTE # 1.6 TH/MM3 (1.0-4.8); MEAN CELL VOLUME 83.7 FL (80.0-100.0); MEAN CORPUSCULAR HEMOGLOBIN 27.4 PG (27.0-34.0); MEAN CORPUSCULAR HGB CONC 32.7 % (32.0-36.0); MONO % 5.9 % (0.0-8.0); PLATELET COUNT 395 TH/MM3 (150-450); RED BLOOD COUNT 3.45 MIL/MM3 (4.00-5.30); RED CELL DISTRIBUTION WIDTH 17.6 % (11.6-17.2); WHITE BLOOD COUNT 7.6 TH/MM3 (4.0-11.0)
[2016-09-21] MEDS: ONDANSETRON HCL 4 MG/2 ML VIAL IV PUSH PRN ×2 (04:43→12:56)
[2016-09-21] MEDS: OCTREOTIDE INJ 100 MCG/ML VIAL IV PUSH SCH ×2 (04:43→12:57)
[2016-09-21 05:00] LABS: ALT (GPT) 24 U/L (10-53); ANION GAP 8 MEQ/L (5-15); AST (GOT) 13 U/L (15-37); BICARBONATE 22.1 MEQ/L (21.0-32.0); BLOOD UREA NITROGEN 9 MG/DL (7-18); CHLORIDE 112 MEQ/L (98-107); GLOMERULAR FILTRATION RATE 54 ML/MIN (>89); SODIUM (NA) 142 MEQ/L (136-145)
[2016-09-21 05:02] LABS: ALKALINE PHOSPHATASE 172 U/L (45-117); TOTAL BILIRUBIN ADULT 0.3 MG/DL (0.2-1.0)
[2016-09-21 08:00] VITALS: BP 120/70; PULSE 84; RESP 18; TEMP 97.3; O2SAT 99
--- NOTE | 2016-09-21 08:18 | HHI.FPPN ---
Subjective Remarks Patient was seen and examined this morning. She states that she feels "great" and would love to leave the hospital. She states that she has no pain. She notes that her output from the fistula is increased and more solid. She notes that her appetite is okay. She asks that her antidiarrheal medication be changed because it gives her nausea. She had to take an antinausea medication with it earlier this morning. (Norma Wheeler MD R1) Objective Vitals Vital Signs Date Time Temp Pulse Resp B/P Pulse Ox O2 Delivery O2 Flow Rate FiO2 09/21/16 00:00 96.9 77 16 108/55 97 09/20/16 20:00 97.4 70 16 109/67 95 09/20/16 16:00 97.4 72 17 127/68 98 09/20/16 12:00 98.4 77 17 123/60 98 I/O 09/20/16 09/20/16 09/20/16 09/21/16 09/21/16 09/21/16 07:00 15:00 23:00 07:00 15:00 23:00 Intake Total 956 ml 360 ml 1015 ml 735 ml Output Total 0 ml 500 ml 1000 ml 250 ml Balance 956 ml -140 ml 15 ml 485 ml Intake Oral 240 ml 360 ml 360 ml 120 ml IV Total 716 ml 655 ml 615 ml Output Urine Total 500 ml Gastric Drainage Total 700 ml Drainage Total 0 ml 300 ml 250 ml # Voids 3 1 2 # Bowel Movements 0 0 0 0 (Norma Wheeler MD R1) Result Diagram: 09/21/16 0355 09/21/16 0355 Imaging Last Impressions Upper Extremity Ultrasound 09/14/16 0000 Signed Impressions: Service Date/Time: Wednesday, September 14, 2016 14:21 - CONCLUSION: Superficial thrombosed left cephalic vein associated with the PICC line. Shen Scott MD FACR Lower Extremity Ultrasound 09/14/16 0000 Signed Impressions: Service Date/Time: Wednesday, September 14, 2016 14:02 - CONCLUSION: There is normal compressibility of the deep venous system from the inguinal region to the proximal calf. No echogenic clot is seen in the lumen of the common femoral, femoral, popliteal, and posterior tibial veins. There is a normal response of the venous system to proximal and distal augmentation and respiration. CONCLUSION: Negative for deep venous thrombosis. Shen Scott MD Chest X-Ray 09/13/16 0000 Signed Impressions: Service Date/Time: August 05:15 - CONCLUSION: Mild central pulmonary vascular congestion. Chintan Donovan MD CT Angiography 09/13/16 0000 Signed Impressions: Service Date/Time: August 17:11 - CONCLUSION: Small segmental pulmonary emboli in the left lower lobe. No evidence of main pulmonary artery or lobar pulmonary emboli. Small patchy areas of airspace disease without evidence of segmental or lobar consolidation. Dae Herrera MD Abdomen/Pelvis CT 09/12/16 1234 Signed Impressions: Service Date/Time: Monday, September 12, 2016 18:05 - CONCLUSION: 1. No inflammatory changes are seen within the abdomen or pelvis. Scott Pastor MD Abdomen X-Ray 09/06/16 0000 Signed Impressions: Service Date/Time: August 15:49 - CONCLUSION: 1. Nonspecific bowel gas pattern without evidence for obstruction or free air. Adrian Rendon MD Soft Tissue Ultrasound 08/31/16 0000 Signed Impressions: Service Date/Time: Wednesday, August 31, 2016 21:56 - CONCLUSION: Negative Shashi Mera MD Objective Remarks GENERAL: Patient is obese female in NAD sitting up in bedside chair. SKIN: Warm and dry. Patient with ostomy bag covering repaired fistula and mostly liquid but some semi-formed stool is noted. stomy output is brown without evidence of bleeding. Output looks to be at least 1 L. There is a wound VAC from a second site in the mid abdomen. Both sides have good seals at this time. Skin surrounding the fistula mildly erythematous but improved. HEENT: Normocephalic. Atraumatic. EOMI. No scleral icterus. No injection or drainage. No nasal drainage. Moist mucous membranes. CARDIOVASCULAR: Regular rate and rhythm without murmurs, gallops, or rubs. RESPIRATORY: Clear to auscultation bilaterally without crackles or wheeze. 1+ pulses in upper extremities and lower extremities bilaterally GASTROINTESTINAL: Abdomen obese, bowel sounds normal. Nontender. See skin above. MUSCULOSKELETAL: No notable edema of bilateral lower extremities. No calf tenderness. NEURO: Awake and alert. 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 Medications and IVs Inpatient Medications Acetaminophen (Ofirmev Inj) 1,000 mg Q6H IV Last administered on 09/08/16 05: 44; Start 09/05/16 at 17:30; Stop 09/08/16 at 08:02; Status DC Acetaminophen 650 mg 650 mg Q6HR PRN PO TEMP>101F, PAIN 1-10, HEADACHE Last administered on 09/13/16 12:43; Start 08/30/16 at 14:30 Acetaminophen/ Butalbital/ Caffeine (Fioricet 325-50-40) 1 tab Q6H PRN PO HEADACHE Last administered on 09/12/16 14:01; Start 09/12/16 at 10:45 Acetaminophen/ Hydrocodone Bitart (Northway 7.5-325 Mg) 1 tab Q4H PRN PO PAIN SCALE 6 TO 10 Last administered on 09/21/16 13:41; Start 07/30/16 at 11:00 Alteplase, Recombinant (Cathflo Activase Inj) 2 mg Q2H PRN INTRACATH OCCLUDED CATHETER Last administered on 09/12/16 07:42; Start 09/03/16 at 07:45 Bisacodyl (Dulcolax Supp) 10 mg ONCE ONCE RECTAL ; Start 09/11/16 at 17:30; Stop 09/11/16 at 17:31; Status DC Calcium Carbonate (Tums Chew) 500 mg ONCE ONCE CHEW Last administered on 02:26; Start 07/29/16 at 01:00; Stop 07/29/16 at 01:01; Status DC Cefepime HCl 2000 mg/Sodium Chloride 100 ml @ 200 mls/hr Q8H IV Last administered on 08/13/16 14:31; Start 07/28/16 at 14:00; Stop 08/13/16 at 15:03 ; Status DC Ceftriaxone Sodium 1000 mg/ Sodium Chloride 100 ml @ 200 mls/hr Q24H IV Last administered on 09/11/16 16:15; Start 09/11/16 at 16:00; Stop 09/12/16 at 14:23 ; Status DC Ceftriaxone Sodium/Sodium Chloride (Rocephin Inj/NS Inj) 100 ml @ 200 mls/hr Q24H IV Last administered on 08/31/16 16:28; Start 08/31/16 at 17:00; Stop at 16:24; Status DC Chlorhexidine Gluconate (Chlorhexidine 2% Cloth) 3 pack UNSCH PRN TOP HYGIENIC CARE; Start 07/28/16 at 23:45; Stop 08/02/16 at 23:47; Status DC Ciprofloxacin/ Dextrose 200 ml @ 200 mls/hr Q12H IV ; Start 09/12/16 at 15:00; Stop 09/12/16 at 17:14; Status DC Ciprofloxacin/ Dextrose (Cipro 400 Mg Premix) 200 ml @ 200 mls/hr Q12H IV Last administered on 08/31/16 11:56; Start 08/23/16 at 14:00; Stop 08/31/16 at 15 :18; Status DC Clotrimazole (Lotrimin 1% Cream) 1 applic Q12HR TOPICAL Last administered on 09:00; Start 08/22/16 at 15:00 Diatrizoate Meglum/ Diatrizoate Sod 18 ml 18 ml ONCE ONCE PO Last administered on 09/12/16 13:45; Start 09/12/16 at 13:15; Stop 09/12/16 at 13:16 ; Status DC Diphenhydramine HCl (Benadryl 2% Cream) 1 applic TID PRN TOPICAL ITCHING Last administered on 09/20/16 22:19; Start 08/24/16 at 14:00 Duloxetine HCl (Cymbalta Dr) 30 mg DAILY PO Last administered on 09/21/16 11: 02; Start 09/01/16 at 11:00 Enoxaparin Sodium (Lovenox Inj) 80 mg Q12H SQ Last administered on 09/21/16 13 :38; Start 09/22/16 at 01:00 Enoxaparin Sodium 40 mg 40 mg Q12HR SQ Last administered on 09/16/16 20:13; Start 09/15/16 at 09:00; Stop 09/17/16 at 07:59; Status DC Enoxaparin Sodium 60 mg 60 mg Q12H SQ Last administered on 09/20/16 22:18; Start 09/17/16 at 09:00; Stop 09/21/16 at 09:58; Status DC Famotidine (Pepcid) 10 mg Q12HR PO Last administered on 09/13/16 09:51; Start 09/11/16 at 21:00; Stop 09/13/16 at 22:19; Status DC Fat Emulsion Intravenous (Liposyn Iii 20% Inj) 250 ml @ 31.25 mls/ hr SuWe@20 IV-CENTRAL Last administered on 09/09/16 19:59; Start 08/15/16 at 20:00; Stop 09/13/16 at 11:08; Status DC Fluconazole (Diflucan) 200 mg DAILY PO Last administered on 09/03/16 09:14; Start 08/28/16 at 09:00; Stop 09/03/16 at 14:01; Status DC Fluconazole/ Sodium Chloride (Diflucan 400 Mg Premix Bag) 400 ml @ 100 mls/hr Q24H IV Last administered on 09/19/16 16:51; Start 09/19/16 at 15:00; Stop at 15:01; Status DC Furosemide (Lasix) 20 mg DAILY PO Last administered on 09/21/16 11:02; Start 08/05/16 at 09:00 Furosemide 20 mg 20 mg ONCE ONCE IV PUSH Last administered on 08/02/16 16:57; Start 08/02/16 at 16:30; Stop 08/02/16 at 16:31; Status DC Glycerin (Glycerin Adult Supp) 2 gm BID PRN RECTAL CONSTIPATION; Start at 11:00; Status Hold Heparin Sodium (Porcine) (Heparin Central Flush) See Protocol UNSCH PRN IVF SEE PROTOCOL TABLE Last administered on 09/05/16 03:03; Start 08/15/16 at 14:15 ; Stop 09/16/16 at 07:23; Status DC Heparin Sodium (Porcine) (Heparin Inj) 5,000 units UNSCH PRN IV APTT LESS THAN 25; Start 09/14/16 at 00:15; Stop 09/16/16 at 07:24; Status DC Heparin Sodium (Porcine) 2500 units 2,500 units UNSCH PRN IV APTT 25 TO 39; Start 09/14/16 at 00:15; Stop 09/16/16 at 07:24; Status DC Heparin Sodium/ Dextrose (Heparin-D5W Inj) 250 ml @ 0 mls/hr TITRATE IV ; Start 09/13/16 at 18:15; Stop 09/16/16 at 07:24; Status DC Hydromorphone HCl (Dilaudid Pf Inj) 1 mg MoWeFr PRN IV BREAKTHRU PAIN; Start at 10:30 Insulin Detemir 5 units 5 units Q12HR SQ Last administered on 09/21/16 11:02; Start 09/12/16 at 21:00 Iron Sucrose/ Sodium Chloride (Venofer Inj/NS Inj) 110 ml @ 110 mls/hr Q24H IV Last administered on 09/18/16 18:02; Start 09/16/16 at 14:00; Stop 09/18/16 at 14:59; Status DC IV Flush (NS Flush) See Protocol UNSCH PRN IVF SEE PROTOCOL TABLE; Start at 14:15; Stop 09/16/16 at 07:23; Status DC IV Flush See Protocol UNSCH PRN IVF SEE PROTOCOL TABLE Last administered on 13:47; Start 08/15/16 at 14:15; Stop 09/16/16 at 07:23; Status DC Lactated Ringer's (Lr 1000 ml Inj) 1,000 ml @ 50 mls/hr Q20H IV Last administered on 08/08/16 08:16; Start 08/03/16 at 00:00; Stop 08/08/16 at 10:29; Status DC Lactobacillus Acidophilus (Lactinex) 1 tab TID PO Last administered on 11:01; Start 08/13/16 at 18:00 Lactulose (Lactulose Liq) 30 ml QID PO Last administered on 09/19/16 09:01; Start 09/11/16 at 18:00; Stop 09/19/16 at 15:43; Status DC Levofloxacin/ Dextrose (Levaquin 750 Mg Premix Inj) 150 ml @ 100 mls/hr ONCE ONCE IV Last administered on 07/28/16 18:14; Start 07/28/16 at 12:30; Stop at 13:59; Status DC Lidocaine/ Epinephrine 10 ml 10 ml ONCE ONCE INFIL ; Start 07/28/16 at 12:15; Stop 07/28/16 at 12:16; Status DC Magnesium Hydroxide (Milk Of Magnesia Liq) 30 ml DAILY PO Last administered on 09/05/16 17:24; Start 09/05/16 at 14:45; Stop 09/08/16 at 11:59; Status DC Metronidazole 100 ml @ 100 mls/hr Q6H IV ; Start 09/12/16 at 16:00; Stop at 17:14; Status DC Metronidazole (Flagyl 500 Mg Inj) 100 ml @ 100 mls/hr Q6H IV Last administered on 08/13/16 14:31; Start 07/28/16 at 14:00; Stop 08/13/16 at 15:04 ; Status DC Micafungin Sodium 150 mg/Sodium Chloride 100 ml @ 100 mls/hr Q24H IV Last administered on 09/19/16 12:38; Start 09/18/16 at 14:00; Stop 09/19/16 at 14:04 ; Status DC Miconazole Nitrate (Monistat 7 Vag Cream) 1 appl HS VAGINAL Last administered on 08/06/16 23:05; Start 08/02/16 at 21:00; Stop 08/09/16 at 20:59; Status DC Miscellaneous Information SPECIFIC LAB TO BE THIAGO... ONCE ONCE XX Last administered on 09/16/16 05:31; Start 09/16/16 at 05:45; Stop 09/16/16 at 05:46 ; Status DC Miscellaneous Information (Post-op Orders (for Pharmacy)) STAT ONCE XX ; Start 07/29/16 at 12:15; Stop 07/29/16 at 12:32; Status DC Miscellaneous 1 ea 1 ea UNSCH PRN OTHER SEE LABEL COMMENTS; Start 09/11/16 at 13:45 Morphine Sulfate (Morphine Inj) 2 mg Q3H PRN IV PUSH BREAKTHROUGH PAIN Last administered on 08/05/16 02:35; Start 07/30/16 at 11:00 Morphine Sulfate 4 mg 4 mg Q4HR PRN IV PUSH PAIN SCALE 6 TO 10 Last administered on 07/30/16 04:18; Start 07/28/16 at 13:45; Stop 07/30/16 at 10:36 ; Status DC Multi-Ingredient Ointment (Eucerin Cream) 1 applic Q6H PRN TOPICAL ITCHING Last administered on 09/14/16 11:35; Start 08/24/16 at 14:00 Multivitamins 10 ml/Folic Acid 1 mg/Amino Acids/ Electrolytes/ Dextrose 2,010.2 ml @ 80 mls/hr Q24H IV-CENTRAL Last administered on 09/10/16 20:00; Start at 20:00; Stop 09/11/16 at 14:53; Status DC Naloxone HCl 0.4 mg 0.4 mg UNSCH PRN IV SEE LABEL COMMENTS; Start 07/28/16 at 13:00 Nystatin 1 applic 1 applic Q12HR TOPICAL Last administered on 09/21/16 09:00; Start 08/22/16 at 15:00 Octreotide Acetate (SandoSTATIN INJ) 100 mcg Q8HR IV PUSH Last administered on 09/21/16 12:57; Start 08/23/16 at 22:00 Ondansetron HCl (Zofran Inj) 4 mg Q6HR PRN IV PUSH NAUSEA OR VOMITING Last administered on 09/21/16 12:56; Start 08/28/16 at 16:00 Pantoprazole Sodium (Protonix Inj) 40 mg Q24H IV PUSH Last administered on 08/13 10:30; Start 07/30/16 at 12:00; Stop 08/14/16 at 07:38; Status DC Pantoprazole Sodium (Protonix) 40 mg BID PO Last administered on 09/21/16 11: 02; Start 09/13/16 at 22:30 Pharmacy Profile Note ml @ 0 mls/hr UNSCH XX ; Start 09/12/16 at 17:45; Stop at 14:03; Status DC Polyethylene Glycol (Miralax) 17 gm DAILY PO Last administered on 09/21/16 11: 00; Start 09/08/16 at 12:00 Potassium Bicarbonate (Effer-K Eff) 25 meq DAILY PO Last administered on 08:07; Start 08/06/16 at 21:00; Stop 09/10/16 at 10:36; Status DC Pramipexole Dihydrochloride (Mirapex) 0.5 mg HS@2000 PO Last administered on 22:17; Start 08/03/16 at 20:00 Senna/Docusate Sodium (Annette-Colace) 2 tab BID PO Last administered on 11:02; Start 09/08/16 at 21:00 Sodium Polystyrene Sulfonate (Kayexalate Enema) 30 gm ONCE ONCE RECTAL Last administered on 09/12/16 12:45; Start 09/12/16 at 12:45; Stop 09/12/16 at 12:49 ; Status DC Sodium Polystyrene Sulfonate (Kayexalate Liq) 15 gm ONCE ONCE PO Last administered on 09/12/16 17:10; Start 09/12/16 at 14:30; Stop 09/12/16 at 14:31 ; Status DC Sodium Chloride (NS 1000 ml Inj) 1,000 ml @ 84 mls/hr [id number] IV Last administered on 09/21/16 13:00; Start 09/12/16 at 14:30 Sodium Chloride (NS 250 ml Inj) 250 ml @ 15 mls/hr ONCE ONCE IV Last administered on 07/28/16 23:47; Start 07/28/16 at 22:15; Stop 07/29/16 at 14:54 ; Status DC Sodium Chloride (NS 500 ml Inj) 500 ml @ 500 mls/hr BOLUS ONCE IV Last administered on 09/13/16 17:01; Start 09/13/16 at 15:45; Stop 09/13/16 at 16:44 ; Status DC Sodium Chloride/ Sodium Acetate/ Sodium Phosphate/ Magnesium Chloride/Calcium Chloride/ Multivitamins/ Folic Acid/Amino Acids/Dextrose (Sodium Chloride 23.4% Inj/Sodium Acetate Inj/ Sodium Phosphate Inj/Magnesium Chloride Inj/ Calcium Chloride Inj/Mvi-12 Inj/ Folvite Inj/ Clinimix 11/22) 2,064.1437 ml @ 80 mls/hr Q24H IV-CENTRAL Last administered on 09/11/16 22:33; Start 09/11/16 at 20:00; Stop 09/13/16 at 11:08; Status DC Vancomycin HCl 1000 mg/Sodium Chloride 250 ml @ 250 mls/hr Q24H IV ; Start at 15:00; Stop 07/28/16 at 16:46; Status DC Vancomycin HCl 1250 mg/Sodium Chloride 262.5 ml @ 262.5 mls/ hr Q12H IV Last administered on 09/13/16 06:50; Start 09/13/16 at 06:00; Stop 09/13/16 at 11:45 ; Status DC Vancomycin HCl 1500 mg/Sodium Chloride 515 ml @ 257.5 mls/ hr Q18H IV Last administered on 07/31/16 00:36; Start 07/28/16 at 18:00; Stop 07/31/16 at 11:49 ; Status DC Vancomycin HCl 1750 mg/Sodium Chloride 517.5 ml @ 250 mls/hr ONCE ONCE IV Last administered on 09/12/16 18:00; Start 09/12/16 at 18:00; Stop 09/12/16 at 20:04; Status DC Vancomycin HCl/ Sodium Chloride (Vancomycin Inj/ NS 500 ml Inj) 517.5 ml @ 258.75 mls/ hr Q24H IV Last administered on 09/19/16 05:50; Start 09/14/16 at 06:00; Stop 09/19/16 at 14:04; Status DC Zolpidem Tartrate (Ambien) 5 mg HS PRN PO INSOMNIA Last administered on 22:48; Start 07/30/16 at 21:00 (Norma Wheeler MD R1) Urinary Catheter: No (Norma Wheeler MD R1) Vascular Central Line Catheter: No (Norma Wheeler MD R1) A/P Assessment and Plan 65-year-old female who recently had exploration in [place] with 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 She has had a prolonged hospital stay due to recurrent sepsis bacteremia , now fungemia, and new finding of a left lower lobe pulmonary embolism. Discharge Planning Discharge held until patient has negative blood cultures in final read status. This will be no sooner than 09/24/16. She had Gram + bacteremia and sepsis , Pulmonary embolism 09/13/16, and fungemia noted in blood culture on 09/15/16. (Norma Wheeler MD R1) Attending Attestation Patient examined and case discussed with resident physician I have read the above note and agree with the assessment/plan as discussed with the I was involved in all medical decision making for this patient Fred Mckinney M.D. (Fred Mckinney MD) Problem List: (1) Gram positive septicemia Status: Acute Plan: Patient clinically decompensated approximately 09/13/16 with fever, leukocytosis, tachycardia. Repeat blood cultures on 09/13 grew staph epidermidis. Repeat blood cultures on 09/15 showed fungemia. Vancomycin IV initiated on 09/12, however, blood cultures not clear of infection until 09/15. We 'll continue IV antibiotics to complete a 7-day course with negative blood cultures, end date 09/22/16. Hospital course: Gram positive cocci in 3 out of 4 blood cx. PICC removed on 09/13. Afebrile x 24 hrs. Leukocytosis resolved. Blood culture 09/11 showing staph epidermidis in both bottles Repeat blood cultures 09/13 secondary to new-onset fever showed staph epidermidis in 1 out of 2 bottles Repeat blood culture 09/15 showing no fungemia Repeat blood cultures 09/19 and 09/20 showing no growth to date Vancomycin 1750 g IV q24h (started 09/12) Infectious disease consult was placed, appreciate recommendations (2) Fungemia Status: Acute Plan: Soledad Albicans 09/15 - Micofungin 150 mg q 24 hr IV (09/18-09/19), switched to Fluconazole 400mg IV (09/19-present) Patient will need ophthalmology follow-up as outpatient Echo 09/19 wnl, EF 60% (3) Pulmonary embolism Status: Acute Plan: Small segmental PE in Left lower lobe shown on CTA 09/13/16 Pt with bleeding from left lower quadrant fistula 09/14, now resolved. H&H stable at approximately 9.5. No obvious signs of bleeding at this time. On IV fluids so this may be dilutional. We'll follow-up hematology recs. Increased to Lovenox 80 mg q12h per hematology. Trending H&H. Monitor for signs of bleeding. Appreciate Heme recs regarding PE management as an inpatient and discharge planning. 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 General Surgery consulted at admission. 07/28: Status post incision and drainage and washout of left abdominal wall, with wound vac placement due to small bowel fistula Wound VAC changes at bedside by wound care team -Pain control with Northway 7.5325 Q4hrs prn pain 610, morphine 2 mg IV q3h prn breakthrough, hold if SBP < 110 or DBP < 60 -Dilaudid when necessary with wound changes Imaging 07/28 - Abdomen/Pelvis CT: Diffuse and extensive subcutaneous emphysema around the abdominal wall from patient's right lateral abdominal wall across midline to left lateral abdominal wall. Fluid collection in anterior left abdominal wall suspicious for subcutaneous abscess. Nonspecific edema throughout subcutaneous tissues. No acute intra-abdominal or pelvic pathology. -Chest x-ray repeated on 09/01 - no acute cardiopulmonary abnormality appreciated -Repeat CT of abdomen and pelvis with IV contrast 09/12 showing overall improvement and no acute changes Prior antibiotics: - Vancomycin, pharm consult (07/28-08/13), (09/12-09/22) - Cefepime 2gm IV q8h (07/28-08/13) - Flagyl 500 mg IV q6h (07/28-08/13) 09/10/2016: Slight elevation in white blood cells. From 10,000-13,000. We'll continue to monitor. Patient at high risk for wound infection. If stable, anticipate discharge on 09/11/2016. 09/11/2016: WBC elevated to 16.3K, trending upward. Patient without vital sign changes. Initiating sepsis workup. CXR with no acute process. UA showing trace leukocytes, in patient with foul smelling urine. UCx ordered. Rocephin 1g IV q24h x 2 ordered. 09/12/2016: WBC persistently elevated but stable at 16,000. Mildly increased temperatures of 100.2. UA was negative for infection. Chest x-ray no acute process. Rocephin was switched to the antibiotics above. Blood cultures were noted to be positive for gram-positive cocci in pairs and clusters. 09/13/16: patient improved symptomatically, but tachycardia and fever noted today. Will obtain CTA and echocardiogram to rule out PE/cardiac dyskinesis 09/14/16: Bleeding from ostomy site, 20 cc, decrease in Hg from 11.5 --> 10.3. CTA showed small PE in LL Lobe. Symptoms (fevers, chills, hemoptysis) improving. 09/15/16: No further bleeding from the ostomy site. Hg stable at 10.3. Patient having increased Lovenox frequency started this morning, now Lovenox 40 mg sq q12h. Asymptomatic. 09/16/16. No bleeding from ostomy site. Hemoglobin is 9.3. Continue Lovenox 40 mg subQ BID, heme has been consulted. Patient is clinically improved today. 09/17/16: AFVSS - still high output through coloenteric fistula. Sepsis resolved. Lovenox 60 mg subcutaneous BID initiated 09/17/16: Tmax 99.9F over the last 24 hours. She feels great. Vital signs are stable. IV vancomycin continued, end date 09/22/16. Pending recs from general surgery and hematology regarding discharge planning 09/18/16-09/21/16: AFVSS, clinical exam significant for increased ostomy output, otherwise unremarkable (5) Physical deconditioning Status: Acute Plan: Patient physically deconditioned after staying in bed for extended period of time. Nursing order to get patient out of bed at least 3 times a day as tolerated with assistance -PT recommends PT at rehabilitation. -Continue PT workouts while inpatient (6) Urinary tract infection Status: Resolved Plan: Resolved. Antibiotics as above (7) Anemia Status: Acute Plan: - Hemoglobin stable but anemic. She is on IV fluids at approximately half maintenance. - Continue to monitor BMP and CBC - Iron panel suggestive of anemia of chronic disease - B12 and Folate both elevated -Continue to monitor H&H as outpatient (8) Skin rash Status: Resolved Plan: Rash improved - Completed 7 day course of fluconazole on 09/03 Nystatin powder for groin, axilla, area under breasts, and skin folds Clotrimazole cream for back of neck (9) Depression Status: Chronic Plan: -Continue home Cymbalta 30 mg by mouth daily (10) Lower extremity edema Status: Resolved Plan: Resolved - Patient with no pitting edema of bilateral lower extremities on exam. - SCDs - 20 mg Lasix po daily, 25 meq potassium (11) Nutrition, metabolism, and development symptoms Status: Acute Plan: Fluids: NS at 84 ml/hr. Electrolytes: Monitor and replete as needed Nutrition: By mouth regular diet. DVT PPX: SCDs and Lovenox; risk of DVT and PE greater than risk for chronic wound bleeding GI PPX: Pantoprazole BID. wdw Dr. Mckinney. (Norma Wheeler MD R1) Problem Qualifiers (1) Pulmonary embolism: Qualified Code: I26.99 - Other acute pulmonary embolism without acute cor pulmonale (2) Urinary tract infection: Qualified Code: N30.01 - Acute cystitis with hematuria (3) Anemia: (4) Depression: Qualified Code: F33.9 - Recurrent major depressive disorder, remission status unspecified (5) Lower extremity edema: Qualified Code: R60.0 - Bilateral edema of lower extremity Norma Wheeler MD R1 Sep 21, 2016 08:18 Fred Mckinney MD Sep 21, 2016 16:40
[2016-09-21] MEDS: CLOTRIMAZOLE 1% CREAM 15 GM TOPICAL SCH ×2 (09:00→21:11)
[2016-09-21] MEDS: SODIUM CHLORIDE 0.9% FLUSH 5 ML FLUSH IVF SCH ×3 (09:00→21:12)
[2016-09-21] MEDS: NYSTATIN 100,000 U/GM PWD 15 GM BTL TOPICAL SCH ×2 (09:00→21:11)
[2016-09-21] MEDS: POLYETHYLENE GLYCOL 17 GM PKG PO SCH (11:00)
[2016-09-21] MEDS: ACETAMINOPHEN/HYDROcodone 325 MG/7.5 MG TAB PO PRN ×2 (11:01→13:41)
[2016-09-21] MEDS: LACTOBACILLUS ACIDOPHILUS TAB PO SCH ×3 (11:01→18:00)
[2016-09-21] MEDS: DOCUSATE SODIUM 50 MG/SENNA 8.6 MG TAB PO SCH ×2 (11:02→21:09)
[2016-09-21] MEDS: FUROSEMIDE 20 MG TAB PO SCH (11:02)
[2016-09-21] MEDS: DULoxetine HCl DR 30 MG CAP PO SCH (11:02)
[2016-09-21] MEDS: PANTOPRAZOLE SOD 40 MG DELAYED RELEASE TAB PO SCH ×2 (11:02→21:10)
[2016-09-21] MEDS: INSULIN DETEMIR 100 UNITS/ML VIAL SQ SCH ×2 (11:02→21:10)
[2016-09-21 12:00] VITALS: BP 100/52; PULSE 76; RESP 18; TEMP 97.9; O2SAT 99
[2016-09-21] MEDS ORDERED: ENOXAPARIN SODIUM 80 MG/0.8 ML SYRINGE SQ ONE (12:30)
--- NOTE | 2016-09-21 12:55 | PD.ONC.PN ---
Subjective Subjective Remarks Afebrile overnight. Patient says she feels well. She sat up in chair at bedside for two hours this AM. She denies any obvious bleeding. Objective Data Date Time Temp Pulse Resp B/P Pulse Ox O2 Delivery O2 Flow Rate FiO2 09/21/16 08:00 97.3 84 18 120/70 99 09/21/16 00:00 96.9 77 16 108/55 97 09/20/16 20:00 97.4 70 16 109/67 95 09/20/16 16:00 97.4 72 17 127/68 98 09/21/16 09/21/16 09/21/16 07:00 15:00 23:00 Intake Total 735 ml Output Total 250 ml Balance 485 ml Result Diagram: 09/21/16 0355 09/21/16 0355 Laboratory Results Laboratory Tests Test 09/21/16 03:55 White Blood Count 7.6 TH/MM3 Red Blood Count 3.45 MIL/MM3 Hemoglobin 9.5 GM/DL Hematocrit 28.9 % Mean Corpuscular Volume 83.7 FL Mean Corpuscular Hemoglobin 27.4 PG Mean Corpuscular Hemoglobin 32.7 % Concent Red Cell Distribution Width 17.6 % Platelet Count 395 TH/MM3 Mean Platelet Volume 6.9 FL Neutrophils (%) (Auto) 69.0 % Lymphocytes (%) (Auto) 21.3 % Monocytes (%) (Auto) 5.9 % Eosinophils (%) (Auto) 2.7 % Basophils (%) (Auto) 1.1 % Neutrophils # (Auto) 5.2 TH/MM3 Lymphocytes # (Auto) 1.6 TH/MM3 Monocytes # (Auto) 0.4 TH/MM3 Eosinophils # (Auto) 0.2 TH/MM3 Basophils # (Auto) 0.1 TH/MM3 CBC Comment DIFF FINAL Differential Comment Sodium Level 142 MEQ/L Potassium Level 4.0 MEQ/L Chloride Level 112 MEQ/L Carbon Dioxide Level 22.1 MEQ/L Anion Gap 8 MEQ/L Blood Urea Nitrogen 9 MG/DL Creatinine 1.02 MG/DL Estimat Glomerular Filtration 54 ML/MIN Rate Random Glucose 106 MG/DL Calcium Level 9.0 MG/DL Total Bilirubin 0.3 MG/DL Aspartate Amino Transf 13 U/L (AST/SGOT) Alanine Aminotransferase 24 U/L (ALT/SGPT) Alkaline Phosphatase 172 U/L Total Protein 5.9 GM/DL Albumin 2.1 GM/DL Culture Results Microbiology Date/Time Procedure Status Source Growth 09/19/16 14:15 Aerobic Blood Culture - Preliminary Resulted Blood Peripheral NO GROWTH IN 2 DAYS 09/19/16 14:15 Anaerobic Blood Culture - Preliminary Resulted Blood Peripheral NO GROWTH IN 2 DAYS 09/19/16 14:20 Aerobic Blood Culture - Preliminary Resulted Blood Peripheral NO GROWTH IN 2 DAYS 09/19/16 14:20 Anaerobic Blood Culture - Preliminary Resulted Blood Peripheral NO GROWTH IN 2 DAYS 09/20/16 11:11 Aerobic Blood Culture - Preliminary Resulted Blood Peripheral NO GROWTH IN 1 DAY 09/20/16 11:11 Anaerobic Blood Culture - Preliminary Resulted Blood Peripheral NO GROWTH IN 1 DAY 09/20/16 11:19 Aerobic Blood Culture - Preliminary Resulted Blood Peripheral NO GROWTH IN 1 DAY 09/20/16 11:19 Anaerobic Blood Culture - Preliminary Resulted Blood Peripheral NO GROWTH IN 1 DAY Administered Medications Medications (Trade) Dose Ordered Sig/Johnie Route PRN Reason Start Time Stop Time Status Last Admin Dose Admin Miscellaneous Information Patient in critical care unit? Ass... [id number] XX 07/28/16 23:45 07/28/16 23:45 IV Flush (NS Flush) 2 ml UNSCH PRN IVF FLUSH AFTER USING IV ACCESS 07/29/16 12:15 09/20/16 06:14 IV Flush (NS Flush) 2 ml BID IVF 07/29/16 21:00 09/20/16 22:17 Acetaminophen/ Hydrocodone Bitart ([place] 7.5-325 Mg) 1 tab Q4H PRN PO PAIN SCALE 6 TO 10 07/30/16 11:00 09/21/16 11:01 Morphine Sulfate (Morphine Inj) 2 mg Q3H PRN IV PUSH BREAKTHROUGH PAIN 07/30/16 11:00 08/05/16 02:35 Zolpidem Tartrate (Ambien) 5 mg HS PRN PO INSOMNIA 07/30/16 21:00 09/20/16 22:48 Pramipexole Dihydrochloride (Mirapex) 0.5 mg HS@2000 PO 08/03/16 20:00 09/20/16 22:17 Furosemide (Lasix) 20 mg DAILY PO 08/05/16 09:00 09/21/16 11:02 Lactobacillus Acidophilus (Lactinex) 1 tab TID PO 08/13/16 18:00 09/21/16 11:01 Hydromorphone HCl (Dilaudid Pf Inj) 1 mg MoWeFr PRN IV DRESSING CHANGES 08/15/16 10:30 08/28/16 21:58 Bisacodyl (Dulcolax Supp) 10 mg DAILY PRN RECTAL constipation 08/17/16 11:00 09/08/16 12:11 Clotrimazole (Lotrimin 1% Cream) 1 applic Q12HR TOPICAL 08/22/16 15:00 09/21/16 09:00 Nystatin (Mycostatin Powder) 1 applic Q12HR TOPICAL 08/22/16 15:00 09/21/16 09:00 Octreotide Acetate (SandoSTATIN INJ) 100 mcg Q8HR IV PUSH 08/23/16 22:00 09/21/16 04:43 Multi-Ingredient Ointment (Eucerin Cream) 1 applic Q6H PRN TOPICAL ITCHING 08/24/16 14:00 09/14/16 11:35 Diphenhydramine HCl (Benadryl 2% Cream) 1 applic TID PRN TOPICAL ITCHING 08/24/16 14:00 09/20/16 22:19 Ondansetron HCl (Zofran Inj) 4 mg Q6HR PRN IV PUSH NAUSEA OR VOMITING 08/28/16 16:00 09/21/16 04:43 Acetaminophen (Tylenol) 650 mg Q6HR PRN PO TEMP>101F, PAIN 1-10, HEADACHE 08/30/16 14:30 09/13/16 12:43 Duloxetine HCl (Cymbalta Dr) 30 mg DAILY PO 09/01/16 11:00 09/21/16 11:02 Alteplase, Recombinant (Cathflo Activase Inj) 2 mg Q2H PRN INTRACATH OCCLUDED CATHETER 09/03/16 07:45 09/12/16 07:42 Senna/Docusate Sodium (Annette-Colace) 2 tab BID PO 09/08/16 21:00 09/21/16 11:02 Polyethylene Glycol (Miralax) 17 gm DAILY PO 09/08/16 12:00 09/21/16 11:00 Acetaminophen/ Butalbital/ Caffeine 1 tab 1 tab Q6H PRN PO HEADACHE 09/12/16 10:45 09/12/16 14:01 Sodium Chloride (NS 1000 ml Inj) 1,000 ml @ 84 mls/hr [id number] IV 09/12/16 14:30 09/20/16 22:19 Insulin Detemir (Levemir Inj) 5 units Q12HR SQ 09/12/16 21:00 09/21/16 11:02 Pantoprazole Sodium 40 mg 40 mg BID PO 09/13/16 22:30 09/21/16 11:02 Fluconazole/ Sodium Chloride (Diflucan 400 Mg Premix Bag) 200 ml @ 100 mls/hr Q24H IV 09/20/16 15:00 09/20/16 15:14 Objective Remarks GENERAL: Middle aged female, lying in bed in nad. SKIN: Warm and dry. HEAD: Normocephalic. EYES: No injection or drainage. NECK: Supple, trachea midline. CARDIOVASCULAR: Regular rate and rhythm RESPIRATORY: Breath sounds equal bilaterally. No accessory muscle use. GASTROINTESTINAL: ostomy bag, left abdomen, brown stool in place. abdomen soft, nontender EXTREMITIES: No cyanosis. no edema. NEUROLOGICAL: AOx3. normal speech. Assessment/Plan Problem List: (1) Pulmonary embolism Status: Acute Plan: 09/21/2016: increase Lovenox 80mg SQ q 12. monitor hgb 09/17/2016: Lovenox dosing increased to 60 mg subcutaneous every 12 hours. 09/16: slight decrease in hemoglobin with no obvious bleeding. would continue current dose of Lovenox and check H/H at noon. If there is further evidence of fall or bleeding, would reduce or d/c Lovenox. 09/15 --increased to Lovenox 40mg SQ BID 08/13-09/14: on Lovenox 40mg SQ daily 09/13: CTA shows PE. Assessment 65y/o female with competing needs of PE vs. intermittently bleeding colocutaneous fistula. (History from initial consult) Ms. Menard is a 65-year-old female who has been hospitalized at this facility since late July 2016. The patient was admitted initially due to swelling and pain involving her abdomen, specifically in the left lower quadrant. She has a history of multiple abdominal surgeries including gastric bypass as well as multiple surgeries for abdominal wall hernias and fistula repair. It is apparent based on clinical exam that shortly after her admission she was noted to have a large abscess involving the abdominal wall. She underwent incision and drainage of this. The first surgery was performed on 08/02/2016. She subsequently underwent extensive debridement of necrotic tissue and was found to have a fistula tract going into the colon. A wound vac was placed and she was initiated on antibiotics. Over the course of this hospitalization she has had multiple surgical dbridements. 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 In fact most of her stools are coming out of the colocutaneous fistula. For management of her antibiotics she did have a left upper extremity PICC line placed. The PICC line was removed on 09/14/2015 and the patient reports noting immediate onset difficulty breathing. CT angiogram was done which revealed a subsegmental pulmonary emboli involving the left lower lobe. She was initiated on anticoagulation. However, she was noted to have increased bleeding from the fistula site, the bleeding was described as red blood. Subsequent ultrasound Doppler studies of the upper and lower extremities indicated no evidence of lower extremity deep venous thromboses but she was found to have a superficial venous thrombosis involving the left cephalic vein (ipsilateral to the PICC line). Plan 1. d/w resident service, patient will be inpatient otw due to +[place] BC. Will increase to Lovenox 80mg SQ q 12 and monitor H/H over the weekend. 2. follow up in clinic upon discharge Problem Qualifiers (1) Pulmonary embolism: Qualified Code: I26.99 - Other acute pulmonary embolism without acute cor pulmonale Ana Butt Sep 21, 2016 12:55
[2016-09-21] MEDS: SODIUM CHLOR 0.9% 1000 ML INJ 1,000 ML IV SCH ×2 (13:00→21:12)
[2016-09-21] MEDS: ENOXAPARIN SODIUM 80 MG/0.8 ML SYRINGE SQ SCH (13:38)
[2016-09-21] MEDS: FLUCONAZOLE 400 MG PREMIX BAG 200 ML IV SCH (14:07)
[2016-09-21 16:00] VITALS: BP 98/54; PULSE 78; RESP 16; TEMP 97.4; O2SAT 99
[2016-09-21 20:00] VITALS: BP 115/54; PULSE 68; RESP 20; TEMP 97.2; O2SAT 96
[2016-09-21] MEDS ORDERED: ENOXAPARIN SODIUM 80 MG/0.8 ML SYRINGE SQ SCH (21:00)
[2016-09-21] MEDS: ZOLPIDEM TARTRATE 5 MG TAB PO PRN (21:09)
[2016-09-21] MEDS: PRAMIPEXOLE DIHYDROCHLORIDE 0.25 MG TAB PO SCH (21:10)
[2016-09-22 00:06] VITALS: BP 117/58; PULSE 71; RESP 20; TEMP 97.3; O2SAT 96
[2016-09-22] MEDS: ACETAMINOPHEN/HYDROcodone 325 MG/7.5 MG TAB PO PRN ×4 (03:14→19:04)
[2016-09-22 04:36] LABS: AUTOMATED NEUTROPHIL # 4.6 TH/MM3 (1.8-7.7); BASOPHIL % 0.5 % (0.0-2.0); EOSINOPHIL # 0.2 TH/MM3 (0-0.4); EOSINOPHIL % 2.8 % (0.0-4.0); HEMATOCRIT 29.4 % (35.0-46.0); HEMO FLAGS DIFF FINAL; LYMPH % 22.9 % (9.0-44.0); LYMPHOCYTE # 1.6 TH/MM3 (1.0-4.8); MEAN CELL VOLUME 84.6 FL (80.0-100.0); MEAN CORPUSCULAR HEMOGLOBIN 26.9 PG (27.0-34.0); MEAN CORPUSCULAR HGB CONC 31.7 % (32.0-36.0); NEUT % 66.8 % (16.0-70.0); PLATELET COUNT 430 TH/MM3 (150-450); RED BLOOD COUNT 3.48 MIL/MM3 (4.00-5.30); WHITE BLOOD COUNT 6.9 TH/MM3 (4.0-11.0)
[2016-09-22 05:02] LABS: BICARBONATE 20.7 MEQ/L (21.0-32.0); POTASSIUM 3.7 MEQ/L (3.5-5.1)
--- NOTE | 2016-09-22 07:51 | HHI.FPPN ---
Subjective Remarks Patient was seen and examined this morning. She denies fevers, chills, nausea, vomiting, chest pain, shortness of breath. She notes that ostomy output is about the same now that octreotide has been held. No bleeding. Pain is controlled. Objective Vitals Vital Signs Date Time Temp Pulse Resp B/P Pulse Ox O2 Delivery O2 Flow Rate FiO2 09/22/16 00:06 97.3 71 20 117/58 96 09/21/16 20:00 97.2 68 20 115/54 96 09/21/16 16:00 97.4 78 16 98/54 99 09/21/16 12:00 97.9 76 18 100/52 99 09/21/16 08:00 97.3 84 18 120/70 99 I/O 09/21/16 09/21/16 09/21/16 09/22/16 09/22/16 09/22/16 07:00 15:00 23:00 07:00 15:00 23:00 Intake Total 735 ml 480 ml 660 ml 870 ml Output Total 250 ml 600 ml 300 ml 1100 ml Balance 485 ml -120 ml 360 ml -230 ml Intake Oral 120 ml 480 ml 360 ml IV Total 615 ml 660 ml 510 ml Output Urine Total 600 ml 900 ml Drainage Total 250 ml 300 ml 200 ml # Voids 2 # Bowel Movements 0 0 Result Diagram: 09/22/16 0326 09/22/16 0326 Imaging Last Impressions Upper Extremity Ultrasound 09/14/16 0000 Signed Impressions: Service Date/Time: Wednesday, September 14, 2016 14:21 - CONCLUSION: Superficial thrombosed left cephalic vein associated with the PICC line. Shen Scott MD FACR Lower Extremity Ultrasound 09/14/16 0000 Signed Impressions: Service Date/Time: Wednesday, September 14, 2016 14:02 - CONCLUSION: There is normal compressibility of the deep venous system from the inguinal region to the proximal calf. No echogenic clot is seen in the lumen of the common femoral, femoral, popliteal, and posterior tibial veins. There is a normal response of the venous system to proximal and distal augmentation and respiration. CONCLUSION: Negative for deep venous thrombosis. Shen Scott MD Chest X-Ray 09/13/16 0000 Signed Impressions: Service Date/Time: August 05:15 - CONCLUSION: Mild central pulmonary vascular congestion. Chintan Donovan MD CT Angiography 09/13/16 0000 Signed Impressions: Service Date/Time: August 17:11 - CONCLUSION: Small segmental pulmonary emboli in the left lower lobe. No evidence of main pulmonary artery or lobar pulmonary emboli. Small patchy areas of airspace disease without evidence of segmental or lobar consolidation. Dae Herrera MD Abdomen/Pelvis CT 09/12/16 1234 Signed Impressions: Service Date/Time: Monday, September 12, 2016 18:05 - CONCLUSION: 1. No inflammatory changes are seen within the abdomen or pelvis. Scott Pastor MD Abdomen X-Ray 09/06/16 0000 Signed Impressions: Service Date/Time: August 15:49 - CONCLUSION: 1. Nonspecific bowel gas pattern without evidence for obstruction or free air. Adrian Rendon MD Soft Tissue Ultrasound 08/31/16 0000 Signed Impressions: Service Date/Time: Wednesday, August 31, 2016 21:56 - CONCLUSION: Negative Shashi Mera MD Objective Remarks GENERAL: Patient is obese female lying in bed, no apparent distress. SKIN: Warm and dry. Patient with ostomy bag covering repaired fistula and mostly liquid today. Ostomy output is liquid brown without evidence of bleeding. There is a wound VAC from a second site in the mid abdomen. Both sides have good seals at this time. Skin surrounding the fistula mildly erythematous but improved. HEENT: Normocephalic. Atraumatic. EOMI. No scleral icterus. No injection or drainage. No nasal drainage. Moist mucous membranes. CARDIOVASCULAR: Regular rate and rhythm without murmurs, gallops, or rubs. RESPIRATORY: Clear to auscultation bilaterally without crackles or wheeze. 1+ pulses in upper extremities and lower extremities bilaterally GASTROINTESTINAL: Abdomen obese, bowel sounds normal. Nontender. See skin above. MUSCULOSKELETAL: No notable edema of bilateral lower extremities. No calf tenderness. NEURO: Awake and alert. 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 ENGINE BOSS grossly intact. Medications and IVs Inpatient Medications Acetaminophen (Ofirmev Inj) 1,000 mg Q6H IV Last administered on 09/08/16t 05: 44; Start 09/05/16 at 17:30; Stop 09/08/16 at 08:02; Status DC Acetaminophen 650 mg 650 mg Q6HR PRN PO TEMP>101F, PAIN 1-10, HEADACHE Last administered on 09/13/16 12:43; Start 08/30/16 at 14:30 Acetaminophen/ Butalbital/ Caffeine (Fioricet 325-50-40) 1 tab Q6H PRN PO HEADACHE Last administered on 09/12/16 14:01; Start 09/12/16 at 10:45 Acetaminophen/ Hydrocodone Bitart ([place] 7.5-325 Mg) 1 tab Q4H PRN PO PAIN SCALE 6 TO 10 Last administered on 09/22/16 03:14; Start 07/30/16 at 11:00 Alteplase, Recombinant (Cathflo Activase Inj) 2 mg Q2H PRN INTRACATH OCCLUDED CATHETER Last administered on 09/12/16 07:42; Start 09/03/16 at 07:45 Bisacodyl (Dulcolax Supp) 10 mg ONCE ONCE RECTAL ; Start 09/11/16 at 17:30; Stop 09/11/16 at 17:31; Status DC Calcium Carbonate (Tums Chew) 500 mg ONCE ONCE CHEW Last administered on 02:26; Start 07/29/16 at 01:00; Stop 07/29/16 at 01:01; Status DC Cefepime HCl 2000 mg/Sodium Chloride 100 ml @ 200 mls/hr Q8H IV Last administered on 08/13/16 14:31; Start 07/28/16 at 14:00; Stop 08/13/16 at 15:03 ; Status DC Ceftriaxone Sodium 1000 mg/ Sodium Chloride 100 ml @ 200 mls/hr Q24H IV Last administered on 09/11/16 16:15; Start 09/11/16 at 16:00; Stop 09/12/16 at 14:23 ; Status DC Ceftriaxone Sodium/Sodium Chloride (Rocephin Inj/NS Inj) 100 ml @ 200 mls/hr Q24H IV Last administered on 08/31/16 16:28; Start 08/31/16 at 17:00; Stop at 16:24; Status DC Chlorhexidine Gluconate (Chlorhexidine 2% Cloth) 3 pack UNSCH PRN TOP HYGIENIC CARE; Start 07/28/16 at 23:45; Stop 08/02/16 at 23:47; Status DC Ciprofloxacin/ Dextrose 200 ml @ 200 mls/hr Q12H IV ; Start 09/12/16 at 15:00; Stop 09/12/16 at 17:14; Status DC Ciprofloxacin/ Dextrose (Cipro 400 Mg Premix) 200 ml @ 200 mls/hr Q12H IV Last administered on 08/31/16 11:56; Start 08/23/16 at 14:00; Stop 08/31/16 at 15 :18; Status DC Clotrimazole (Lotrimin 1% Cream) 1 applic Q12HR TOPICAL Last administered on 21:11; Start 08/22/16 at 15:00 Diatrizoate Meglum/ Diatrizoate Sod 18 ml 18 ml ONCE ONCE PO Last administered on 09/12/16 13:45; Start 09/12/16 at 13:15; Stop 09/12/16 at 13:16 ; Status DC Diphenhydramine HCl (Benadryl 2% Cream) 1 applic TID PRN TOPICAL ITCHING Last administered on 09/20/16 22:19; Start 08/24/16 at 14:00 Duloxetine HCl (Cymbalta Dr) 30 mg DAILY PO Last administered on 09/21/16 11: 02; Start 09/01/16 at 11:00 Enoxaparin Sodium (Lovenox Inj) 80 mg Q12H SQ Last administered on 09/21/16 13 :38; Start 09/22/16 at 01:00 Enoxaparin Sodium 40 mg 40 mg Q12HR SQ Last administered on 09/16/16 20:13; Start 09/15/16 at 09:00; Stop 09/17/16 at 07:59; Status DC Enoxaparin Sodium 60 mg 60 mg Q12H SQ Last administered on 09/20/16 22:18; Start 09/17/16 at 09:00; Stop 09/21/16 at 09:58; Status DC Famotidine (Pepcid) 10 mg Q12HR PO Last administered on 09/13/16 09:51; Start 09/11/16 at 21:00; Stop 09/13/16 at 22:19; Status DC Fat Emulsion Intravenous (Liposyn Iii 20% Inj) 250 ml @ 31.25 mls/ hr SuWe@20 IV-CENTRAL Last administered on 09/09/16 19:59; Start 08/15/16 at 20:00; Stop 09/13/16 at 11:08; Status DC Fluconazole (Diflucan) 200 mg DAILY PO Last administered on 09/03/16 09:14; Start 08/28/16 at 09:00; Stop 09/03/16 at 14:01; Status DC Fluconazole/ Sodium Chloride (Diflucan 400 Mg Premix Bag) 400 ml @ 100 mls/hr Q24H IV Last administered on 09/19/16 16:51; Start 09/19/16 at 15:00; Stop at 15:01; Status DC Furosemide (Lasix) 20 mg DAILY PO Last administered on 09/21/16 11:02; Start 08/05/16 at 09:00 Furosemide 20 mg 20 mg ONCE ONCE IV PUSH Last administered on 08/02/16 16:57; Start 08/02/16 at 16:30; Stop 08/02/16 at 16:31; Status DC Glycerin (Glycerin Adult Supp) 2 gm BID PRN RECTAL CONSTIPATION; Start at 11:00; Status Hold Heparin Sodium (Porcine) (Heparin Central Flush) See Protocol UNSCH PRN IVF SEE PROTOCOL TABLE Last administered on 09/05/16 03:03; Start 08/15/16 at 14:15 ; Stop 09/16/16 at 07:23; Status DC Heparin Sodium (Porcine) (Heparin Inj) 5,000 units UNSCH PRN IV APTT LESS THAN 25; Start 09/14/16 at 00:15; Stop 09/16/16 at 07:24; Status DC Heparin Sodium (Porcine) 2500 units 2,500 units UNSCH PRN IV APTT 25 TO 39; Start 09/14/16 at 00:15; Stop 09/16/16 at 07:24; Status DC Heparin Sodium/ Dextrose (Heparin-D5W Inj) 250 ml @ 0 mls/hr TITRATE IV ; Start 09/13/16 at 18:15; Stop 09/16/16 at 07:24; Status DC Hydromorphone HCl (Dilaudid Pf Inj) 1 mg MoWeFr PRN IV BREAKTHRU PAIN; Start at 10:30 Insulin Detemir 5 units 5 units Q12HR SQ Last administered on 09/21/16 21:10; Start 09/12/16 at 21:00 Iron Sucrose/ Sodium Chloride (Venofer Inj/NS Inj) 110 ml @ 110 mls/hr Q24H IV Last administered on 09/18/16 18:02; Start 09/16/16 at 14:00; Stop 09/18/16 at 14:59; Status DC IV Flush (NS Flush) See Protocol UNSCH PRN IVF SEE PROTOCOL TABLE; Start at 14:15; Stop 09/16/16 at 07:23; Status DC IV Flush See Protocol UNSCH PRN IVF SEE PROTOCOL TABLE Last administered on 13:47; Start 08/15/16 at 14:15; Stop 09/16/16 at 07:23; Status DC Lactated Ringer's (Lr 1000 ml Inj) 1,000 ml @ 50 mls/hr Q20H IV Last administered on 08/08/16 08:16; Start 08/03/16 at 00:00; Stop 08/08/16 at 10:29; Status DC Lactobacillus Acidophilus (Lactinex) 1 tab TID PO Last administered on 11:01; Start 08/13/16 at 18:00 Lactulose (Lactulose Liq) 30 ml QID PO Last administered on 09/19/16 09:01; Start 09/11/16 at 18:00; Stop 09/19/16 at 15:43; Status DC Levofloxacin/ Dextrose (Levaquin 750 Mg Premix Inj) 150 ml @ 100 mls/hr ONCE ONCE IV Last administered on 07/28/16 18:14; Start 07/28/16 at 12:30; Stop at 13:59; Status DC Lidocaine/ Epinephrine 10 ml 10 ml ONCE ONCE INFIL ; Start 07/28/16 at 12:15; Stop 07/28/16 at 12:16; Status DC Magnesium Hydroxide (Milk Of Magnesia Liq) 30 ml DAILY PO Last administered on 09/05/16 17:24; Start 09/05/16 at 14:45; Stop 09/08/16 at 11:59; Status DC Metronidazole 100 ml @ 100 mls/hr Q6H IV ; Start 09/12/16 at 16:00; Stop at 17:14; Status DC Metronidazole (Flagyl 500 Mg Inj) 100 ml @ 100 mls/hr Q6H IV Last administered on 08/13/16 14:31; Start 07/28/16 at 14:00; Stop 08/13/16 at 15:04 ; Status DC Micafungin Sodium 150 mg/Sodium Chloride 100 ml @ 100 mls/hr Q24H IV Last administered on 09/19/16 12:38; Start 09/18/16 at 14:00; Stop 09/19/16 at 14:04 ; Status DC Miconazole Nitrate (Monistat 7 Vag Cream) 1 appl HS VAGINAL Last administered on 08/06/16 23:05; Start 08/02/16 at 21:00; Stop 08/09/16 at 20:59; Status DC Miscellaneous Information SPECIFIC LAB TO BE THIAGO... ONCE ONCE XX Last administered on 09/16/16 05:31; Start 09/16/16 at 05:45; Stop 09/16/16 at 05:46 ; Status DC Miscellaneous Information (Post-op Orders (for Pharmacy)) STAT ONCE XX ; Start 07/29/16 at 12:15; Stop 07/29/16 at 12:32; Status DC Miscellaneous 1 ea 1 ea UNSCH PRN OTHER SEE LABEL COMMENTS; Start 09/11/16 at 13:45 Morphine Sulfate (Morphine Inj) 2 mg Q3H PRN IV PUSH BREAKTHROUGH PAIN Last administered on 08/05/16 02:35; Start 07/30/16 at 11:00 Morphine Sulfate 4 mg 4 mg Q4HR PRN IV PUSH PAIN SCALE 6 TO 10 Last administered on 07/30/16 04:18; Start 07/28/16 at 13:45; Stop 07/30/16 at 10:36 ; Status DC Multi-Ingredient Ointment (Eucerin Cream) 1 applic Q6H PRN TOPICAL ITCHING Last administered on 09/14/16 11:35; Start 08/24/16 at 14:00 Multivitamins 10 ml/Folic Acid 1 mg/Amino Acids/ Electrolytes/ Dextrose 2,010.2 ml @ 80 mls/hr Q24H IV-CENTRAL Last administered on 09/10/16 20:00; Start at 20:00; Stop 09/11/16 at 14:53; Status DC Naloxone HCl 0.4 mg 0.4 mg UNSCH PRN IV SEE LABEL COMMENTS; Start 07/28/16 at 13:00 Nystatin 1 applic 1 applic Q12HR TOPICAL Last administered on 09/21/16 21:11; Start 08/22/16 at 15:00 Octreotide Acetate (SandoSTATIN INJ) 100 mcg Q8HR IV PUSH Last administered on 09/21/16 12:57; Start 08/23/16 at 22:00; Status Hold Ondansetron HCl (Zofran Inj) 4 mg Q6HR PRN IV PUSH NAUSEA OR VOMITING Last administered on 09/21/16 12:56; Start 08/28/16 at 16:00 Pantoprazole Sodium (Protonix Inj) 40 mg Q24H IV PUSH Last administered on 08/13 10:30; Start 07/30/16 at 12:00; Stop 08/14/16 at 07:38; Status DC Pantoprazole Sodium (Protonix) 40 mg BID PO Last administered on 09/21/16 21: 10; Start 09/13/16 at 22:30 Pharmacy Profile Note ml @ 0 mls/hr UNSCH XX ; Start 09/12/16 at 17:45; Stop at 14:03; Status DC Polyethylene Glycol (Miralax) 17 gm DAILY PO Last administered on 09/21/16 11: 00; Start 09/08/16 at 12:00 Potassium Bicarbonate (Effer-K Eff) 25 meq DAILY PO Last administered on 08:07; Start 08/06/16 at 21:00; Stop 09/10/16 at 10:36; Status DC Pramipexole Dihydrochloride (Mirapex) 0.5 mg HS@2000 PO Last administered on 21:10; Start 08/03/16 at 20:00 Senna/Docusate Sodium (Annette-Colace) 2 tab BID PO Last administered on 21:09; Start 09/08/16 at 21:00 Sodium Polystyrene Sulfonate (Kayexalate Enema) 30 gm ONCE ONCE RECTAL Last administered on 09/12/16 12:45; Start 09/12/16 at 12:45; Stop 09/12/16 at 12:49 ; Status DC Sodium Polystyrene Sulfonate (Kayexalate Liq) 15 gm ONCE ONCE PO Last administered on 09/12/16 17:10; Start 09/12/16 at 14:30; Stop 09/12/16 at 14:31 ; Status DC Sodium Chloride (NS 1000 ml Inj) 1,000 ml @ 84 mls/hr [id number] IV Last administered on 09/21/16 21:12; Start 09/12/16 at 14:30 Sodium Chloride (NS 250 ml Inj) 250 ml @ 15 mls/hr ONCE ONCE IV Last administered on 07/28/16 23:47; Start 07/28/16 at 22:15; Stop 07/29/16 at 14:54 ; Status DC Sodium Chloride (NS 500 ml Inj) 500 ml @ 500 mls/hr BOLUS ONCE IV Last administered on 09/13/16 17:01; Start 09/13/16 at 15:45; Stop 09/13/16 at 16:44 ; Status DC Sodium Chloride/ Sodium Acetate/ Sodium Phosphate/ Magnesium Chloride/Calcium Chloride/ Multivitamins/ Folic Acid/Amino Acids/Dextrose (Sodium Chloride 23.4% Inj/Sodium Acetate Inj/ Sodium Phosphate Inj/Magnesium Chloride Inj/ Calcium Chloride Inj/Mvi-12 Inj/ Folvite Inj/ Clinimix 11/22) 2,064.1437 ml @ 80 mls/hr Q24H IV-CENTRAL Last administered on 09/11/16 22:33; Start 09/11/16 at 20:00; Stop 09/13/16 at 11:08; Status DC Vancomycin HCl 1000 mg/Sodium Chloride 250 ml @ 250 mls/hr Q24H IV ; Start at 15:00; Stop 07/28/16 at 16:46; Status DC Vancomycin HCl 1250 mg/Sodium Chloride 262.5 ml @ 262.5 mls/ hr Q12H IV Last administered on 09/13/16 06:50; Start 09/13/16 at 06:00; Stop 09/13/16 at 11:45 ; Status DC Vancomycin HCl 1500 mg/Sodium Chloride 515 ml @ 257.5 mls/ hr Q18H IV Last administered on 07/31/16 00:36; Start 07/28/16 at 18:00; Stop 07/31/16 at 11:49 ; Status DC Vancomycin HCl 1750 mg/Sodium Chloride 517.5 ml @ 250 mls/hr ONCE ONCE IV Last administered on 09/12/16 18:00; Start 09/12/16 at 18:00; Stop 09/12/16 at 20:04; Status DC Vancomycin HCl/ Sodium Chloride (Vancomycin Inj/ NS 500 ml Inj) 517.5 ml @ 258.75 mls/ hr Q24H IV Last administered on 09/19/16 05:50; Start 09/14/16 at 06:00; Stop 09/19/16 at 14:04; Status DC Zolpidem Tartrate (Ambien) 5 mg HS PRN PO INSOMNIA Last administered on 21:09; Start 07/30/16 at 21:00 Urinary Catheter: No Vascular Central Line Catheter: No A/P Assessment and Plan 65-year-old female who recently had exploration in [place] with 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 She has had a prolonged hospital stay due to recurrent sepsis bacteremia , now fungemia, and new finding of a left lower lobe pulmonary embolism. Discharge Planning Discharge held until patient has negative blood cultures in final read status. This will be no sooner than 09/24/16. She had Gram + bacteremia and sepsis , Pulmonary embolism 09/13/16, and fungemia noted in blood culture on 09/15/16. Problem List: (1) Fungemia Status: Acute Plan: Soledad Albicans 09/15 - Micofungin 150 mg q 24 hr IV (09/18-09/19), switched to Fluconazole 400mg IV (09/19-present). To continue until at least pending clear cultures drawn 09/19 Patient will need ophthalmology follow-up as outpatient Echo 09/19 wnl, EF 60% (2) Pulmonary embolism Status: Acute Plan: Small segmental PE in Left lower lobe shown on CTA 09/13/16 Pt with bleeding from left lower quadrant fistula 09/14, now resolved. H&H stable at approximately 9.5. No obvious signs of bleeding at this time. On IV fluids so this may be dilutional. We'll follow-up hematology recs. Increased to Lovenox 80 mg q12h per hematology. Trending H&H. Monitor for signs of bleeding. Appreciate Heme recs regarding PE management as an inpatient and discharge planning. (3) Gram positive septicemia Status: Resolved Plan: Patient clinically decompensated approximately 09/13/16 with fever, leukocytosis, tachycardia. Repeat blood cultures on 09/13 grew staph epidermidis. Repeat blood cultures on 09/15 showed fungemia. Vancomycin IV initiated on 09/12, however, blood cultures not clear of infection until 09/15. We 'll continue IV antibiotics to complete a 7-day course with negative blood cultures, end date 09/22/16. Hospital course: Gram positive cocci in 3 out of 4 blood cx. PICC removed on 09/13. Afebrile since 09/10 aside from low-grade fever 09/17. Leukocytosis resolved. 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 General Surgery consulted at admission. 07/28: Status post incision and drainage and washout of left abdominal wall, with wound vac placement due to small bowel fistula Wound VAC changes at bedside by wound care team -Pain control with [place] 7.5325 Q4hrs prn pain 610, morphine 2 mg IV q3h prn breakthrough, hold if SBP < 110 or DBP < 60 -Dilaudid when necessary with wound changes Imaging 07/28 - Abdomen/Pelvis CT: Diffuse and extensive subcutaneous emphysema around the abdominal wall from patient's right lateral abdominal wall across midline to left lateral abdominal wall. Fluid collection in anterior left abdominal wall suspicious for subcutaneous abscess. Nonspecific edema throughout subcutaneous tissues. No acute intra-abdominal or pelvic pathology. -Chest x-ray repeated on 09/01 - no acute cardiopulmonary abnormality appreciated -Repeat CT of abdomen and pelvis with IV contrast 09/12 showing overall improvement and no acute changes Prior antibiotics: - Vancomycin, pharm consult (07/28-08/13), (09/12-09/22) - Cefepime 2gm IV q8h (07/28-08/13) - Flagyl 500 mg IV q6h (07/28-08/13) 09/10/2016: Slight elevation in white blood cells. From 10,000-13,000. We'll continue to monitor. Patient at high risk for wound infection. If stable, anticipate discharge on 09/11/2016. 09/11/2016: WBC elevated to 16.3K, trending upward. Patient without vital sign changes. Initiating sepsis workup. CXR with no acute process. UA showing trace leukocytes, in patient with foul smelling urine. UCx ordered. Rocephin 1g IV q24h x 2 ordered. 09/12/2016: WBC persistently elevated but stable at 16,000. Mildly increased temperatures of 100.2. UA was negative for infection. Chest x-ray no acute process. Rocephin was switched to the antibiotics above. Blood cultures were noted to be positive for gram-positive cocci in pairs and clusters. 09/13/16: patient improved symptomatically, but tachycardia and fever noted today. Will obtain CTA and echocardiogram to rule out PE/cardiac dyskinesis 09/14/16: Bleeding from ostomy site, 20 cc, decrease in Hg from 11.5 --> 10.3. CTA showed small PE in LL Lobe. Symptoms (fevers, chills, hemoptysis) improving. 09/15/16: No further bleeding from the ostomy site. Hg stable at 10.3. Patient having increased Lovenox frequency started this morning, now Lovenox 40 mg sq q12h. Asymptomatic. 09/16/16. No bleeding from ostomy site. Hemoglobin is 9.3. Continue Lovenox 40 mg subQ BID, heme has been consulted. Patient is clinically improved today. 09/17/16: AFVSS - still high output through coloenteric fistula. Sepsis resolved. Lovenox 60 mg subcutaneous BID initiated 09/17/16: Tmax 99.9F over the last 24 hours. She feels great. Vital signs are stable. IV vancomycin continued, end date 09/22/16. Pending recs from general surgery and hematology regarding discharge planning 09/18/16-09/21/16: AFVSS, clinical exam significant for increased ostomy output, otherwise unremarkable 09/22/16: asymptomatic. AFVSS. Last day of vancomycin today, continue fluconazole IV, monitor cbc and bmp daily (5) Physical deconditioning Status: Acute Plan: Patient physically deconditioned after staying in bed for extended period of time. Nursing order to get patient out of bed at least 3 times a day as tolerated with assistance -PT recommends PT at rehabilitation. -Continue PT workouts while inpatient (6) Urinary tract infection Status: Resolved Plan: Resolved. Antibiotics as above (7) Anemia Status: Acute Plan: - Hemoglobin stable but anemic. She is on IV fluids at approximately half maintenance. - Continue to monitor BMP and CBC - Iron panel suggestive of anemia of chronic disease - B12 and Folate both elevated -Continue to monitor H&H as outpatient (8) Skin rash Status: Resolved Plan: Rash improved - Completed 7 day course of fluconazole on 09/03 Nystatin powder for groin, axilla, area under breasts, and skin folds Clotrimazole cream for back of neck (9) Depression Status: Chronic Plan: -Continue home Cymbalta 30 mg by mouth daily (10) Lower extremity edema Status: Resolved Plan: Resolved - Patient with no pitting edema of bilateral lower extremities on exam. - SCDs - 20 mg Lasix po daily, 25 meq potassium (11) Nutrition, metabolism, and development symptoms Status: Acute Plan: Fluids: NS at 84 ml/hr. Electrolytes: Monitor and replete as needed Nutrition: By mouth regular diet. DVT PPX: SCDs and Lovenox; risk of DVT and PE greater than risk for chronic wound bleeding GI PPX: Pantoprazole BID. wdw Dr. Mckinney. Problem Qualifiers (1) Pulmonary embolism: Qualified Code: I26.99 - Other acute pulmonary embolism without acute cor pulmonale (2) Urinary tract infection: Qualified Code: N30.01 - Acute cystitis with hematuria (3) Anemia: (4) Depression: Qualified Code: F33.9 - Recurrent major depressive disorder, remission status unspecified (5) Lower extremity edema: Qualified Code: R60.0 - Bilateral edema of lower extremity Norma Wheeler MD R1 Sep 22, 2016 07:51
[2016-09-22 08:00] VITALS: BP 114/60; PULSE 69; RESP 18; TEMP 96.6; O2SAT 96
[2016-09-22] MEDS: FUROSEMIDE 20 MG TAB PO SCH (08:48)
[2016-09-22] MEDS: DULoxetine HCl DR 30 MG CAP PO SCH (08:48)
[2016-09-22] MEDS: POLYETHYLENE GLYCOL 17 GM PKG PO SCH (08:48)
[2016-09-22] MEDS: DOCUSATE SODIUM 50 MG/SENNA 8.6 MG TAB PO SCH ×2 (08:48→19:59)
[2016-09-22] MEDS: LACTOBACILLUS ACIDOPHILUS TAB PO SCH ×3 (08:48→17:19)
[2016-09-22] MEDS: INSULIN DETEMIR 100 UNITS/ML VIAL SQ SCH ×2 (08:49→19:59)
[2016-09-22] MEDS: CLOTRIMAZOLE 1% CREAM 15 GM TOPICAL SCH ×2 (08:49→20:01)
[2016-09-22] MEDS: PANTOPRAZOLE SOD 40 MG DELAYED RELEASE TAB PO SCH ×2 (08:49→19:59)
[2016-09-22] MEDS: NYSTATIN 100,000 U/GM PWD 15 GM BTL TOPICAL SCH ×2 (08:49→20:01)
[2016-09-22] MEDS: SODIUM CHLOR 0.9% 1000 ML INJ 1,000 ML IV SCH ×2 (11:04→17:19)
[2016-09-22 12:00] VITALS: BP 120/62; PULSE 77; RESP 20; TEMP 97.5; O2SAT 97
[2016-09-22] MEDS: ENOXAPARIN SODIUM 80 MG/0.8 ML SYRINGE SQ SCH (12:06)
[2016-09-22] MEDS: FLUCONAZOLE 400 MG PREMIX BAG 200 ML IV SCH (13:58)
--- NOTE | 2016-09-22 15:43 | HHI.IDPN ---
Subjective Subjective Remarks doing good no fever fu clx negative at 2-3 days so far Denies vision changes or floaters on iv flucioonazol Antibiotics fluconazol iv Allergies: Coded Allergies: Penicillin (Verified Allergy, Severe, rash, 07/28/16) Objective . Vital Signs Date Time Temp Pulse Resp B/P Pulse Ox O2 Delivery O2 Flow Rate FiO2 09/22/16 12:04 17 09/22/16 12:00 97.5 77 20 120/62 97 09/22/16 08:00 96.6 69 18 114/60 96 09/22/16 00:06 97.3 71 20 117/58 96 09/21/16 20:00 97.2 68 20 115/54 96 09/21/16 16:00 97.4 78 16 98/54 99 09/21/16 09/21/16 09/22/16 15:00 23:00 07:00 Intake Total 480 ml 660 ml 870 ml Output Total 600 ml 300 ml 1100 ml Balance -120 ml 360 ml -230 ml Intake Oral 480 ml 360 ml IV Total 660 ml 510 ml Output Urine Total 600 ml 900 ml Drainage Total 300 ml 200 ml # Bowel Movements 0 . Laboratory Tests Test 09/21/16 09/22/16 03:55 03:26 White Blood Count 7.6 TH/MM3 6.9 TH/MM3 Red Blood Count 3.45 MIL/MM3 3.48 MIL/MM3 Hemoglobin 9.5 GM/DL 9.3 GM/DL Hematocrit 28.9 % 29.4 % Mean Corpuscular Volume 83.7 FL 84.6 FL Mean Corpuscular Hemoglobin 27.4 PG 26.9 PG Mean Corpuscular Hemoglobin 32.7 % 31.7 % Concent Red Cell Distribution Width 17.6 % 18.0 % Platelet Count 395 TH/MM3 430 TH/MM3 Mean Platelet Volume 6.9 FL 6.6 FL Neutrophils (%) (Auto) 69.0 % 66.8 % Lymphocytes (%) (Auto) 21.3 % 22.9 % Monocytes (%) (Auto) 5.9 % 7.0 % Eosinophils (%) (Auto) 2.7 % 2.8 % Basophils (%) (Auto) 1.1 % 0.5 % Neutrophils # (Auto) 5.2 TH/MM3 4.6 TH/MM3 Lymphocytes # (Auto) 1.6 TH/MM3 1.6 TH/MM3 Monocytes # (Auto) 0.4 TH/MM3 0.5 TH/MM3 Eosinophils # (Auto) 0.2 TH/MM3 0.2 TH/MM3 Basophils # (Auto) 0.1 TH/MM3 0.0 TH/MM3 CBC Comment DIFF FINAL DIFF FINAL Differential Comment Laboratory Tests Test 09/21/16 09/22/16 03:55 03:26 Sodium Level 142 MEQ/L 142 MEQ/L Potassium Level 4.0 MEQ/L 3.7 MEQ/L Chloride Level 112 MEQ/L 112 MEQ/L Carbon Dioxide Level 22.1 MEQ/L 20.7 MEQ/L Anion Gap 8 MEQ/L 9 MEQ/L Blood Urea Nitrogen 9 MG/DL 8 MG/DL Creatinine 1.02 MG/DL 1.00 MG/DL Estimat Glomerular Filtration 54 ML/MIN 55 ML/MIN Rate Random Glucose 106 MG/DL 85 MG/DL Calcium Level 9.0 MG/DL 8.7 MG/DL Total Bilirubin 0.3 MG/DL Aspartate Amino Transf 13 U/L (AST/SGOT) Alanine Aminotransferase 24 U/L (ALT/SGPT) Alkaline Phosphatase 172 U/L Total Protein 5.9 GM/DL Albumin 2.1 GM/DL Microbiology Date/Time Procedure Status Source Growth 09/20/16 11:11 Aerobic Blood Culture - Preliminary Resulted Blood Peripheral NO GROWTH IN 2 DAYS 09/20/16 11:11 Anaerobic Blood Culture - Preliminary Resulted Blood Peripheral NO GROWTH IN 2 DAYS 09/20/16 11:19 Aerobic Blood Culture - Preliminary Resulted Blood Peripheral NO GROWTH IN 2 DAYS 09/20/16 11:19 Anaerobic Blood Culture - Preliminary Resulted Blood Peripheral NO GROWTH IN 2 DAYS Imaging Last Impressions Upper Extremity Ultrasound 09/14/16 0000 Signed Impressions: Service Date/Time: Wednesday, September 14, 2016 14:21 - CONCLUSION: Superficial thrombosed left cephalic vein associated with the PICC line. Shen Scott MD FACR Lower Extremity Ultrasound 09/14/16 0000 Signed Impressions: Service Date/Time: Wednesday, September 14, 2016 14:02 - CONCLUSION: There is normal compressibility of the deep venous system from the inguinal region to the proximal calf. No echogenic clot is seen in the lumen of the common femoral, femoral, popliteal, and posterior tibial veins. There is a normal response of the venous system to proximal and distal augmentation and respiration. CONCLUSION: Negative for deep venous thrombosis. Shen Scott MD Chest X-Ray 09/13/16 0000 Signed Impressions: Service Date/Time: August 05:15 - CONCLUSION: Mild central pulmonary vascular congestion. Chintan Donovan MD CT Angiography 09/13/16 0000 Signed Impressions: Service Date/Time: August 17:11 - CONCLUSION: Small segmental pulmonary emboli in the left lower lobe. No evidence of main pulmonary artery or lobar pulmonary emboli. Small patchy areas of airspace disease without evidence of segmental or lobar consolidation. Dae Herrera MD Abdomen/Pelvis CT 09/12/16 1234 Signed Impressions: Service Date/Time: Monday, September 12, 2016 18:05 - CONCLUSION: 1. No inflammatory changes are seen within the abdomen or pelvis. Scott Pastor MD Abdomen X-Ray 09/06/16 0000 Signed Impressions: Service Date/Time: August 15:49 - CONCLUSION: 1. Nonspecific bowel gas pattern without evidence for obstruction or free air. Adrain Rendon MD Soft Tissue Ultrasound 08/31/16 0000 Signed Impressions: Service Date/Time: Wednesday, August 31, 2016 21:56 - CONCLUSION: Negative Shashi Mera MD Physical Exam CONSTITUTIONAL/GENERAL: This is a morbidly obese female patient, in no apparent distress. SKIN: No jaundice, rashes, or lesions. Skin temperature appropriate. Not diaphoretic. ENT: moist mucosae CARDIOVASCULAR: Regular rate and rhythm without murmurs, gallops, or rubs. No JVD. Peripheral pulses symmetric. RESPIRATORY/CHEST: Symmetric, unlabored respirations. Clear to auscultation. Breath sounds equal bilaterally. No wheezes, rales, or rhonchi. GASTROINTESTINAL: Abdomen soft, non-tender, nondistended. LLQ enterocutaneous fistula seen with watery yellow stool - appears thicker thanm the other day MUSCULOSKELETAL: Extremities without clubbing, cyanosis, or edema. NEUROLOGICAL: Awake and alert.NOn focal LINES: LUE periferal line - site looks OK Assessment & Plan Remarks High grade staph epi bacteremia - likely from PICC - removed - resolved -sp treatment completed Abdominal wall abscess on admission, sp tx Enterocutaneous fistual, high output C.albicans fungemia - Superficial thrombosed left cephalic vein associated with the PICC line - repeat bl clx neg so far - 2 D echo nefgative - no vision changes cont IV fluconazole high dose dose ophalmologist consult on Saturday If repeat BC and fundoscopic exam remain negative will dc pt if persistent fungemia will get CT A/P Anticipate at least 2 weeks of antifungals starting 1st negative blood clx : at least thru October 02 Might switch to po fluconazol if no malabsorbtion concerns related to short gut sd dw pt Ella Jimenez MD Sep 22, 2016 15:43
[2016-09-22 16:00] VITALS: BP 114/61; PULSE 74; RESP 20; TEMP 97; O2SAT 97
[2016-09-22] MEDS: PRAMIPEXOLE DIHYDROCHLORIDE 0.25 MG TAB PO SCH (19:58)
[2016-09-22] MEDS: SODIUM CHLORIDE 0.9% FLUSH 5 ML FLUSH IVF SCH (19:59)
[2016-09-22 20:00] VITALS: BP 114/56; PULSE 77; RESP 18; TEMP 97.4; O2SAT 97
[2016-09-22] MEDS: ZOLPIDEM TARTRATE 5 MG TAB PO PRN (22:37)
[2016-09-23] VITALS: BP 113/57; PULSE 70; RESP 18; TEMP 97.1; O2SAT 96
[2016-09-23] MEDS: ENOXAPARIN SODIUM 80 MG/0.8 ML SYRINGE SQ SCH ×2 (00:27→11:38)
[2016-09-23 04:48] LABS: BICARBONATE 21.9 MEQ/L (21.0-32.0); POTASSIUM 3.2 MEQ/L (3.5-5.1)
[2016-09-23 04:54] LABS: AUTOMATED NEUTROPHIL # 4.2 TH/MM3 (1.8-7.7); BASOPHIL % 0.5 % (0.0-2.0); EOSINOPHIL # 0.2 TH/MM3 (0-0.4); EOSINOPHIL % 2.6 % (0.0-4.0); HEMATOCRIT 29.6 % (35.0-46.0); HEMO FLAGS DIFF FINAL; LYMPHOCYTE # 1.4 TH/MM3 (1.0-4.8); MEAN CELL VOLUME 84.7 FL (80.0-100.0); MEAN CORPUSCULAR HEMOGLOBIN 27.6 PG (27.0-34.0); MEAN CORPUSCULAR HGB CONC 32.5 % (32.0-36.0); NEUT % 67.9 % (16.0-70.0); PLATELET COUNT 452 TH/MM3 (150-450); RED BLOOD COUNT 3.49 MIL/MM3 (4.00-5.30); RED CELL DISTRIBUTION WIDTH 18.6 % (11.6-17.2); WHITE BLOOD COUNT 6.3 TH/MM3 (4.0-11.0)
[2016-09-23] MEDS: ACETAMINOPHEN/HYDROcodone 325 MG/7.5 MG TAB PO PRN ×3 (05:22→20:31)
[2016-09-23] MEDS ORDERED: POTASSIUM CHLORIDE 10 MEQ CONTROLLED RELEASE TAB PO ONE (06:45)
[2016-09-23 07:57] LABS: MAGNESIUM 1.4 MG/DL (1.5-2.5)
[2016-09-23 08:00] VITALS: BP 134/61; PULSE 87; RESP 20; TEMP 96.1; O2SAT 97
[2016-09-23] MEDS: PANTOPRAZOLE SOD 40 MG DELAYED RELEASE TAB PO SCH ×2 (08:06→20:31)
[2016-09-23] MEDS: POLYETHYLENE GLYCOL 17 GM PKG PO SCH (08:06)
[2016-09-23] MEDS: DOCUSATE SODIUM 50 MG/SENNA 8.6 MG TAB PO SCH ×2 (08:07→20:31)
[2016-09-23] MEDS: DULoxetine HCl DR 30 MG CAP PO SCH (08:07)
[2016-09-23] MEDS: INSULIN DETEMIR 100 UNITS/ML VIAL SQ SCH ×2 (08:07→20:54)
[2016-09-23] MEDS: LACTOBACILLUS ACIDOPHILUS TAB PO SCH ×3 (08:07→17:24)
[2016-09-23] MEDS: NYSTATIN 100,000 U/GM PWD 15 GM BTL TOPICAL SCH ×2 (08:07→20:55)
[2016-09-23] MEDS: SODIUM CHLORIDE 0.9% FLUSH 5 ML FLUSH IVF SCH ×2 (08:07→20:31)
[2016-09-23] MEDS: FUROSEMIDE 20 MG TAB PO SCH (08:07)
[2016-09-23] MEDS: CLOTRIMAZOLE 1% CREAM 15 GM TOPICAL SCH ×2 (08:08→20:54)
[2016-09-23] MEDS: SODIUM CHLOR 0.9% 1000 ML INJ 1,000 ML IV SCH ×2 (11:38→22:53)
[2016-09-23 12:00] VITALS: BP 116/60; PULSE 87; RESP 20; TEMP 96.8; O2SAT 96
--- NOTE | 2016-09-23 12:30 | HHI.FPPN ---
Subjective Remarks Patient was seen and examined this morning. She has no complaints today other than she had a lot of interruptions in sleep last night. She is a little tired this morning. Denies any new pain and has not had any fevers, chills, nausea, vomiting, chest pain, shortness of breath. Output seems to be stable from ostomy. (Norma Wheeler MD R1) Objective Vitals Vital Signs Date Time Temp Pulse Resp B/P Pulse Ox O2 Delivery O2 Flow Rate FiO2 09/23/16 12:00 96.8 87 20 116/60 96 09/23/16 08:00 96.1 87 20 134/61 97 09/23/16 00:00 97.1 70 18 113/57 96 09/22/16 20:00 97.4 77 18 114/56 97 09/22/16 16:00 97.0 74 20 114/61 97 09/22/16 15:58 18 I/O 09/22/16 09/22/16 09/22/16 09/23/16 09/23/16 09/23/16 07:00 15:00 23:00 07:00 15:00 23:00 Intake Total 870 ml 3136 ml 815 ml 1100 ml Output Total 1100 ml 1510 ml 500 ml 1250 ml Balance -230 ml 1626 ml 315 ml -150 ml Intake Oral 360 ml 360 ml 360 ml 240 ml IV Total 510 ml 2776 ml 455 ml 860 ml Output Urine Total 900 ml 600 ml 500 ml 500 ml Drainage Total 200 ml 910 ml 750 ml # Bowel Movements 0 0 0 (Norma Wheeler MD R1) Result Diagram: 09/23/16 0328 09/23/16 0328 Imaging Last Impressions Upper Extremity Ultrasound 09/14/16 0000 Signed Impressions: Service Date/Time: Wednesday, September 14, 2016 14:21 - CONCLUSION: Superficial thrombosed left cephalic vein associated with the PICC line. Shen Scott MD FACR Lower Extremity Ultrasound 09/14/16 0000 Signed Impressions: Service Date/Time: Wednesday, September 14, 2016 14:02 - CONCLUSION: There is normal compressibility of the deep venous system from the inguinal region to the proximal calf. No echogenic clot is seen in the lumen of the common femoral, femoral, popliteal, and posterior tibial veins. There is a normal response of the venous system to proximal and distal augmentation and respiration. MD CONCLUSION: Negative for deep venous thrombosis. Shen Scott MD Chest X-Ray 09/13/16 0000 Signed Impressions: Service Date/Time: August 05:15 - CONCLUSION: Mild central pulmonary vascular congestion. Chintan Donovan MD CT Angiography 09/13/16 0000 Signed Impressions: Service Date/Time: August 17:11 - CONCLUSION: Small segmental pulmonary emboli in the left lower lobe. No evidence of main pulmonary artery or lobar pulmonary emboli. Small patchy areas of airspace disease without evidence of segmental or lobar consolidation. Dae Herrera MD Abdomen/Pelvis CT 09/12/16 1234 Signed Impressions: Service Date/Time: Monday, September 12, 2016 18:05 - CONCLUSION: 1. No inflammatory changes are seen within the abdomen or pelvis. Scott Pastor MD Abdomen X-Ray 09/06/16 0000 Signed Impressions: Service Date/Time: August 15:49 - CONCLUSION: 1. Nonspecific bowel gas pattern without evidence for obstruction or free air. Adrian Rendon MD Soft Tissue Ultrasound 08/31/16 0000 Signed Impressions: Service Date/Time: Wednesday, August 31, 2016 21:56 - CONCLUSION: Negative Shashi Mera MD Objective Remarks GENERAL: Patient is obese female lying in bed, no apparent distress. SKIN: Warm and dry. Patient with ostomy bag covering repaired fistula and mostly liquid today. Ostomy output is liquid brown without evidence of bleeding. There is a wound VAC from a second site in the mid abdomen. Both sides have good seals at this time. Skin surrounding the fistula without erythema. HEENT: Normocephalic. Atraumatic. EOMI. No scleral icterus. No injection or drainage. No nasal drainage. Moist mucous membranes. CARDIOVASCULAR: Regular rate and rhythm without murmurs, gallops, or rubs. RESPIRATORY: Clear to auscultation bilaterally without crackles or wheeze. 1+ pulses in upper extremities and lower extremities bilaterally. GASTROINTESTINAL: Abdomen obese, bowel sounds normal. Nontender. See skin above. MUSCULOSKELETAL: No notable edema of bilateral lower extremities. No calf tenderness. NEURO: Awake and alert. 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 Medications and IVs Inpatient Medications Acetaminophen (Ofirmev Inj) 1,000 mg Q6H IV Last administered on 09/08/16 05: 44; Start 09/05/16 at 17:30; Stop 09/08/16 at 08:02; Status DC Acetaminophen 650 mg 650 mg Q6HR PRN PO TEMP>101F, PAIN 1-10, HEADACHE Last administered on 09/13/16 12:43; Start 08/30/16 at 14:30 Acetaminophen/ Butalbital/ Caffeine (Fioricet 325-50-40) 1 tab Q6H PRN PO HEADACHE Last administered on 09/12/16 14:01; Start 09/12/16 at 10:45 Acetaminophen/ Hydrocodone Bitart (Manzanita 7.5-325 Mg) 1 tab Q4H PRN PO PAIN SCALE 6 TO 10 Last administered on 09/23/16 05:22; Start 07/30/16 at 11:00 Alteplase, Recombinant (Cathflo Activase Inj) 2 mg Q2H PRN INTRACATH OCCLUDED CATHETER Last administered on 09/12/16 07:42; Start 09/03/16 at 07:45 Bisacodyl (Dulcolax Supp) 10 mg ONCE ONCE RECTAL ; Start 09/11/16 at 17:30; Stop 09/11/16 at 17:31; Status DC Calcium Carbonate (Tums Chew) 500 mg ONCE ONCE CHEW Last administered on 02:26; Start 07/29/16 at 01:00; Stop 07/29/16 at 01:01; Status DC Cefepime HCl 2000 mg/Sodium Chloride 100 ml @ 200 mls/hr Q8H IV Last administered on 08/13/16 14:31; Start 07/28/16 at 14:00; Stop 08/13/16 at 15:03 ; Status DC Ceftriaxone Sodium 1000 mg/ Sodium Chloride 100 ml @ 200 mls/hr Q24H IV Last administered on 09/11/16 16:15; Start 09/11/16 at 16:00; Stop 09/12/16 at 14:23 ; Status DC Ceftriaxone Sodium/Sodium Chloride (Rocephin Inj/NS Inj) 100 ml @ 200 mls/hr Q24H IV Last administered on 08/31/16 16:28; Start 08/31/16 at 17:00; Stop at 16:24; Status DC Chlorhexidine Gluconate (Chlorhexidine 2% Cloth) 3 pack UNSCH PRN TOP HYGIENIC CARE; Start 07/28/16 at 23:45; Stop 08/02/16 at 23:47; Status DC Ciprofloxacin/ Dextrose 200 ml @ 200 mls/hr Q12H IV ; Start 09/12/16 at 15:00; Stop 09/12/16 at 17:14; Status DC Ciprofloxacin/ Dextrose (Cipro 400 Mg Premix) 200 ml @ 200 mls/hr Q12H IV Last administered on 08/31/16 11:56; Start 08/23/16 at 14:00; Stop 08/31/16 at 15 :18; Status DC Clotrimazole (Lotrimin 1% Cream) 1 applic Q12HR TOPICAL Last administered on 08:08; Start 08/22/16 at 15:00 Diatrizoate Meglum/ Diatrizoate Sod 18 ml 18 ml ONCE ONCE PO Last administered on 09/12/16 13:45; Start 09/12/16 at 13:15; Stop 09/12/16 at 13:16 ; Status DC Diphenhydramine HCl (Benadryl 2% Cream) 1 applic TID PRN TOPICAL ITCHING Last administered on 09/20/16 22:19; Start 08/24/16 at 14:00 Duloxetine HCl (Cymbalta Dr) 30 mg DAILY PO Last administered on 09/23/16 08: 07; Start 09/01/16 at 11:00 Enoxaparin Sodium (Lovenox Inj) 80 mg Q12H SQ Last administered on 09/23/16 11 :38; Start 09/22/16 at 01:00 Enoxaparin Sodium 40 mg 40 mg Q12HR SQ Last administered on 09/16/16 20:13; Start 09/15/16 at 09:00; Stop 09/17/16 at 07:59; Status DC Enoxaparin Sodium 60 mg 60 mg Q12H SQ Last administered on 09/20/16 22:18; Start 09/17/16 at 09:00; Stop 09/21/16 at 09:58; Status DC Famotidine (Pepcid) 10 mg Q12HR PO Last administered on 09/13/16 09:51; Start 09/11/16 at 21:00; Stop 09/13/16 at 22:19; Status DC Fat Emulsion Intravenous (Liposyn Iii 20% Inj) 250 ml @ 31.25 mls/ hr SuWe@20 IV-CENTRAL Last administered on 09/09/16 19:59; Start 08/15/16 at 20:00; Stop 09/13/16 at 11:08; Status DC Fluconazole (Diflucan) 200 mg DAILY PO Last administered on 09/03/16 09:14; Start 08/28/16 at 09:00; Stop 09/03/16 at 14:01; Status DC Fluconazole/ Sodium Chloride (Diflucan 400 Mg Premix Bag) 400 ml @ 100 mls/hr Q24H IV Last administered on 09/19/16 16:51; Start 09/19/16 at 15:00; Stop at 15:01; Status DC Furosemide (Lasix) 20 mg DAILY PO Last administered on 09/23/16 08:07; Start 08/05/16 at 09:00 Furosemide 20 mg 20 mg ONCE ONCE IV PUSH Last administered on 08/02/16 16:57; Start 08/02/16 at 16:30; Stop 08/02/16 at 16:31; Status DC Glycerin (Glycerin Adult Supp) 2 gm BID PRN RECTAL CONSTIPATION; Start at 11:00; Status Hold Heparin Sodium (Porcine) (Heparin Central Flush) See Protocol UNSCH PRN IVF SEE PROTOCOL TABLE Last administered on 09/05/16 03:03; Start 08/15/16 at 14:15 ; Stop 09/16/16 at 07:23; Status DC Heparin Sodium (Porcine) (Heparin Inj) 5,000 units UNSCH PRN IV APTT LESS THAN 25; Start 09/14/16 at 00:15; Stop 09/16/16 at 07:24; Status DC Heparin Sodium (Porcine) 2500 units 2,500 units UNSCH PRN IV APTT 25 TO 39; Start 09/14/16 at 00:15; Stop 09/16/16 at 07:24; Status DC Heparin Sodium/ Dextrose (Heparin-D5W Inj) 250 ml @ 0 mls/hr TITRATE IV ; Start 09/13/16 at 18:15; Stop 09/16/16 at 07:24; Status DC Hydromorphone HCl (Dilaudid Pf Inj) 1 mg MoWeFr PRN IV BREAKTHRU PAIN; Start at 10:30 Insulin Detemir 5 units 5 units Q12HR SQ Last administered on 09/21/16 21:10; Start 09/12/16 at 21:00 Iron Sucrose/ Sodium Chloride (Venofer Inj/NS Inj) 110 ml @ 110 mls/hr Q24H IV Last administered on 09/18/16 18:02; Start 09/16/16 at 14:00; Stop 09/18/16 at 14:59; Status DC IV Flush (NS Flush) See Protocol UNSCH PRN IVF SEE PROTOCOL TABLE; Start at 14:15; Stop 09/16/16 at 07:23; Status DC IV Flush See Protocol UNSCH PRN IVF SEE PROTOCOL TABLE Last administered on 13:47; Start 08/15/16 at 14:15; Stop 09/16/16 at 07:23; Status DC Lactated Ringer's (Lr 1000 ml Inj) 1,000 ml @ 50 mls/hr Q20H IV Last administered on 08/08/16 08:16; Start 08/03/16 at 00:00; Stop 08/08/16 at 10:29; Status DC Lactobacillus Acidophilus (Lactinex) 1 tab TID PO Last administered on 11:37; Start 08/13/16 at 18:00 Lactulose (Lactulose Liq) 30 ml QID PO Last administered on 09/19/16 09:01; Start 09/11/16 at 18:00; Stop 09/19/16 at 15:43; Status DC Levofloxacin/ Dextrose (Levaquin 750 Mg Premix Inj) 150 ml @ 100 mls/hr ONCE ONCE IV Last administered on 07/28/16 18:14; Start 07/28/16 at 12:30; Stop at 13:59; Status DC Lidocaine/ Epinephrine 10 ml 10 ml ONCE ONCE INFIL ; Start 07/28/16 at 12:15; Stop 07/28/16 at 12:16; Status DC Magnesium Hydroxide (Milk Of Magnesia Liq) 30 ml DAILY PO Last administered on 09/05/16 17:24; Start 09/05/16 at 14:45; Stop 09/08/16 at 11:59; Status DC Metronidazole 100 ml @ 100 mls/hr Q6H IV ; Start 09/12/16 at 16:00; Stop at 17:14; Status DC Metronidazole (Flagyl 500 Mg Inj) 100 ml @ 100 mls/hr Q6H IV Last administered on 08/13/16 14:31; Start 07/28/16 at 14:00; Stop 08/13/16 at 15:04 ; Status DC Micafungin Sodium 150 mg/Sodium Chloride 100 ml @ 100 mls/hr Q24H IV Last administered on 09/19/16 12:38; Start 09/18/16 at 14:00; Stop 09/19/16 at 14:04 ; Status DC Miconazole Nitrate (Monistat 7 Vag Cream) 1 appl HS VAGINAL Last administered on 08/06/16 23:05; Start 08/02/16 at 21:00; Stop 08/09/16 at 20:59; Status DC Miscellaneous Information SPECIFIC LAB TO BE THIAGO... ONCE ONCE XX Last administered on 09/16/16 05:31; Start 09/16/16 at 05:45; Stop 09/16/16 at 05:46 ; Status DC Miscellaneous Information (Post-op Orders (for Pharmacy)) STAT ONCE XX ; Start 07/29/16 at 12:15; Stop 07/29/16 at 12:32; Status DC Miscellaneous 1 ea 1 ea UNSCH PRN OTHER SEE LABEL COMMENTS; Start 09/11/16 at 13:45 Morphine Sulfate (Morphine Inj) 2 mg Q3H PRN IV PUSH BREAKTHROUGH PAIN Last administered on 08/05/16 02:35; Start 07/30/16 at 11:00 Morphine Sulfate 4 mg 4 mg Q4HR PRN IV PUSH PAIN SCALE 6 TO 10 Last administered on 07/30/16 04:18; Start 07/28/16 at 13:45; Stop 07/30/16 at 10:36 ; Status DC Multi-Ingredient Ointment (Eucerin Cream) 1 applic Q6H PRN TOPICAL ITCHING Last administered on 09/14/16 11:35; Start 08/24/16 at 14:00 Multivitamins 10 ml/Folic Acid 1 mg/Amino Acids/ Electrolytes/ Dextrose 2,010.2 ml @ 80 mls/hr Q24H IV-CENTRAL Last administered on 09/10/16 20:00; Start at 20:00; Stop 09/11/16 at 14:53; Status DC Naloxone HCl 0.4 mg 0.4 mg UNSCH PRN IV SEE LABEL COMMENTS; Start 07/28/16 at 13:00 Nystatin 1 applic 1 applic Q12HR TOPICAL Last administered on 09/23/16 08:07; Start 08/22/16 at 15:00 Octreotide Acetate (SandoSTATIN INJ) 100 mcg Q8HR IV PUSH Last administered on 09/21/16 12:57; Start 08/23/16 at 22:00; Status Hold Ondansetron HCl (Zofran Inj) 4 mg Q6HR PRN IV PUSH NAUSEA OR VOMITING Last administered on 09/21/16 12:56; Start 08/28/16 at 16:00 Pantoprazole Sodium (Protonix Inj) 40 mg Q24H IV PUSH Last administered on 08/13 10:30; Start 07/30/16 at 12:00; Stop 08/14/16 at 07:38; Status DC Pantoprazole Sodium (Protonix) 40 mg BID PO Last administered on 09/23/16 08: 06; Start 09/13/16 at 22:30 Pharmacy Profile Note ml @ 0 mls/hr UNSCH XX ; Start 09/12/16 at 17:45; Stop at 14:03; Status DC Polyethylene Glycol (Miralax) 17 gm DAILY PO Last administered on 09/23/16 08: 06; Start 09/08/16 at 12:00 Potassium Bicarbonate (Effer-K Eff) 25 meq DAILY PO Last administered on 08:07; Start 08/06/16 at 21:00; Stop 09/10/16 at 10:36; Status DC Potassium Chloride (KCl) 40 meq ONCE ONCE PO Last administered on 09/23/16 06 :45; Start 09/23/16 at 06:45; Stop 09/23/16 at 06:46; Status DC Pramipexole Dihydrochloride (Mirapex) 0.5 mg HS@2000 PO Last administered on 19:58; Start 08/03/16 at 20:00 Senna/Docusate Sodium (Annette-Colace) 2 tab BID PO Last administered on 08:07; Start 09/08/16 at 21:00 Sodium Polystyrene Sulfonate (Kayexalate Enema) 30 gm ONCE ONCE RECTAL Last administered on 09/12/16 12:45; Start 09/12/16 at 12:45; Stop 09/12/16 at 12:49 ; Status DC Sodium Polystyrene Sulfonate (Kayexalate Liq) 15 gm ONCE ONCE PO Last administered on 09/12/16 17:10; Start 09/12/16 at 14:30; Stop 09/12/16 at 14:31 ; Status DC Sodium Chloride (NS 1000 ml Inj) 1,000 ml @ 84 mls/hr [id number] IV Last administered on 09/22/16 17:19; Start 09/12/16 at 14:30 Sodium Chloride (NS 250 ml Inj) 250 ml @ 15 mls/hr ONCE ONCE IV Last administered on 07/28/16 23:47; Start 07/28/16 at 22:15; Stop 07/29/16 at 14:54 ; Status DC Sodium Chloride (NS 500 ml Inj) 500 ml @ 500 mls/hr BOLUS ONCE IV Last administered on 09/13/16 17:01; Start 09/13/16 at 15:45; Stop 09/13/16 at 16:44 ; Status DC Sodium Chloride/ Sodium Acetate/ Sodium Phosphate/ Magnesium Chloride/Calcium Chloride/ Multivitamins/ Folic Acid/Amino Acids/Dextrose (Sodium Chloride 23.4% Inj/Sodium Acetate Inj/ Sodium Phosphate Inj/Magnesium Chloride Inj/ Calcium Chloride Inj/Mvi-12 Inj/ Folvite Inj/ Clinimix 11/22) 2,064.1437 ml @ 80 mls/hr Q24H IV-CENTRAL Last administered on 09/11/16 22:33; Start 09/11/16 at 20:00; Stop 09/13/16 at 11:08; Status DC Vancomycin HCl 1000 mg/Sodium Chloride 250 ml @ 250 mls/hr Q24H IV ; Start at 15:00; Stop 07/28/16 at 16:46; Status DC Vancomycin HCl 1250 mg/Sodium Chloride 262.5 ml @ 262.5 mls/ hr Q12H IV Last administered on 09/13/16 06:50; Start 09/13/16 at 06:00; Stop 09/13/16 at 11:45 ; Status DC Vancomycin HCl 1500 mg/Sodium Chloride 515 ml @ 257.5 mls/ hr Q18H IV Last administered on 07/31/16 00:36; Start 07/28/16 at 18:00; Stop 07/31/16 at 11:49 ; Status DC Vancomycin HCl 1750 mg/Sodium Chloride 517.5 ml @ 250 mls/hr ONCE ONCE IV Last administered on 09/12/16 18:00; Start 09/12/16 at 18:00; Stop 09/12/16 at 20:04; Status DC Vancomycin HCl/ Sodium Chloride (Vancomycin Inj/ NS 500 ml Inj) 517.5 ml @ 258.75 mls/ hr Q24H IV Last administered on 09/19/16 05:50; Start 09/14/16 at 06:00; Stop 09/19/16 at 14:04; Status DC Zolpidem Tartrate (Ambien) 5 mg HS PRN PO INSOMNIA Last administered on 22:37; Start 07/30/16 at 21:00 (Norma Wheeler MD R1) Urinary Catheter: No (Norma Wheeler MD R1) Vascular Central Line Catheter: No (Norma Wheeler MD R1) A/P Assessment and Plan 65-year-old female who recently had exploration in [place] with 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 She has had a prolonged hospital stay due to recurrent sepsis bacteremia , now fungemia and new finding of a left lower lobe pulmonary embolism. Discharge Planning Discharge held until patient has negative blood cultures in final read status. This will be no sooner than 09/24/16. She had Gram + bacteremia and sepsis , Pulmonary embolism 09/13/16, and fungemia noted in blood culture on 09/15/16. (Norma Wheeler MD R1) Attending Attestation Pt. examined and case discussed with resident physicians I have read the above note and agree with the assessment/plan as discussed with me I was involved in all medical decision making for this patient Fred Mckinney MD (Fred Mckinney MD) Problem List: (1) Fungemia Status: Acute Plan: Soledad Albicans 09/15 - Micofungin 150 mg q 24 hr IV (09/18-09/19), switched to Fluconazole 400mg IV (09/19-present). To continue until at least pending clear cultures drawn 09/19 Patient will need ophthalmology follow-up as outpatient Echo 09/19 wnl, EF 60% (2) Pulmonary embolism Status: Acute Plan: Small segmental PE in Left lower lobe shown on CTA 09/13/16 Pt with bleeding from left lower quadrant fistula 09/14, now resolved. H&H stable at approximately 9.5. No obvious signs of bleeding at this time. On IV fluids. We'll follow-up hematology recs. Increased to Lovenox 80 mg q12h per hematology. Trending H&H. Monitor for signs of bleeding. Appreciate Heme recs regarding PE management as an inpatient and discharge planning. (3) Gram positive septicemia Status: Resolved Plan: Patient clinically decompensated approximately 09/13/16 with fever, leukocytosis, tachycardia. Repeat blood cultures on 09/13 grew staph epidermidis. Repeat blood cultures on 09/15 showed fungemia. Vancomycin IV initiated on 09/12, however, blood cultures not clear of infection until 09/15. We 'll continue IV antibiotics to complete a 7-day course with negative blood cultures, end date 09/22/16. Hospital course: Gram positive cocci in 3 out of 4 blood cx. PICC removed on 09/13. Afebrile since 09/10 aside from low-grade fever 09/17. Leukocytosis resolved. 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 General Surgery consulted at admission. 07/28: Status post incision and drainage and washout of left abdominal wall, with wound vac placement due to small bowel fistula Wound VAC changes at bedside by wound care team -Pain control with Manzanita 7.5325 Q4hrs prn pain 610, morphine 2 mg IV q3h prn breakthrough, hold if SBP < 110 or DBP < 60 -Dilaudid when necessary with wound changes Imaging 07/28 - Abdomen/Pelvis CT: Diffuse and extensive subcutaneous emphysema around the abdominal wall from patient's right lateral abdominal wall across midline to left lateral abdominal wall. Fluid collection in anterior left abdominal wall suspicious for subcutaneous abscess. Nonspecific edema throughout subcutaneous tissues. No acute intra-abdominal or pelvic pathology. -Chest x-ray repeated on 09/01 - no acute cardiopulmonary abnormality appreciated -Repeat CT of abdomen and pelvis with IV contrast 09/12 showing overall improvement and no acute changes Prior antibiotics: - Vancomycin, pharm consult (07/28-08/13), (09/12-09/22) - Cefepime 2gm IV q8h (07/28-08/13) - Flagyl 500 mg IV q6h (07/28-08/13) 09/10/2016: Slight elevation in white blood cells. From 10,000-13,000. We'll continue to monitor. Patient at high risk for wound infection. If stable, anticipate discharge on 09/11/2016. 09/11/2016: WBC elevated to 16.3K, trending upward. Patient without vital sign changes. Initiating sepsis workup. CXR with no acute process. UA showing trace leukocytes, in patient with foul smelling urine. UCx ordered. Rocephin 1g IV q24h x 2 ordered. 09/12/2016: WBC persistently elevated but stable at 16,000. Mildly increased temperatures of 100.2. UA was negative for infection. Chest x-ray no acute process. Rocephin was switched to the antibiotics above. Blood cultures were noted to be positive for gram-positive cocci in pairs and clusters. 09/13/16: patient improved symptomatically, but tachycardia and fever noted today. Will obtain CTA and echocardiogram to rule out PE/cardiac dyskinesis 09/14/16: Bleeding from ostomy site, 20 cc, decrease in Hg from 11.5 --> 10.3. CTA showed small PE in LL Lobe. Symptoms (fevers, chills, hemoptysis) improving. 09/15/16: No further bleeding from the ostomy site. Hg stable at 10.3. Patient having increased Lovenox frequency started this morning, now Lovenox 40 mg sq q12h. Asymptomatic. 09/16/16. No bleeding from ostomy site. Hemoglobin is 9.3. Continue Lovenox 40 mg subQ BID, heme has been consulted. Patient is clinically improved today. 09/17/16: AFVSS - still high output through coloenteric fistula. Sepsis resolved. Lovenox 60 mg subcutaneous BID initiated 09/17/16: Tmax 99.9F over the last 24 hours. She feels great. Vital signs are stable. IV vancomycin continued, end date 09/22/16. Pending recs from general surgery and hematology regarding discharge planning 09/18/16-09/21/16: AFVSS, clinical exam significant for increased ostomy output, otherwise unremarkable 09/22/16: asymptomatic. AFVSS. Last day of vancomycin today, continue fluconazole IV, monitor cbc and bmp daily (5) Physical deconditioning Status: Acute Plan: Patient physically deconditioned after staying in bed for extended period of time. Nursing order to get patient out of bed at least 3 times a day as tolerated with assistance -PT recommends PT at rehabilitation. -Continue PT workouts while inpatient (6) Urinary tract infection Status: Resolved Plan: Resolved. Antibiotics as above (7) Anemia Status: Acute Plan: - Hemoglobin stable but anemic. She is on IV fluids at approximately half maintenance. - Continue to monitor BMP and CBC - Iron panel suggestive of anemia of chronic disease - B12 and Folate both elevated -Continue to monitor H&H as outpatient (8) Skin rash Status: Resolved Plan: Rash improved - Completed 7 day course of fluconazole on 09/03 Nystatin powder for groin, axilla, area under breasts, and skin folds Clotrimazole cream for back of neck (9) Depression Status: Chronic Plan: -Continue home Cymbalta 30 mg by mouth daily (10) Lower extremity edema Status: Resolved Plan: Resolved - Patient with no pitting edema of bilateral lower extremities on exam. - SCDs - 20 mg Lasix po daily, 25 meq potassium (11) Nutrition, metabolism, and development symptoms Status: Acute Plan: Fluids: NS at 84 ml/hr. Electrolytes: Monitor and replete as needed Nutrition: By mouth regular diet. DVT PPX: SCDs and Lovenox; risk of DVT and PE greater than risk for chronic wound bleeding GI PPX: Pantoprazole BID. wdw Dr. Mckinney. (Norma Wheeler MD R1) Problem Qualifiers (1) Pulmonary embolism: Qualified Code: I26.99 - Other acute pulmonary embolism without acute cor pulmonale (2) Urinary tract infection: Qualified Code: N30.01 - Acute cystitis with hematuria (3) Anemia: (4) Depression: Qualified Code: F33.9 - Recurrent major depressive disorder, remission status unspecified (5) Lower extremity edema: Qualified Code: R60.0 - Bilateral edema of lower extremity Norma Wheeler MD R1 Sep 23, 2016 12:30 Fred Mckinney MD Sep 23, 2016 17:25
[2016-09-23] MEDS: FLUCONAZOLE 400 MG PREMIX BAG 200 ML IV SCH (13:49)
[2016-09-23 16:00] VITALS: BP 118/58; PULSE 79; RESP 20; TEMP 98; O2SAT 96
[2016-09-23 20:00] VITALS: BP 114/56; PULSE 84; RESP 20; TEMP 97.5; O2SAT 98
[2016-09-23] MEDS: PRAMIPEXOLE DIHYDROCHLORIDE 0.25 MG TAB PO SCH (20:31)
[2016-09-24] VITALS: BP 109/55; PULSE 70; RESP 20; TEMP 97; O2SAT 98
[2016-09-24] MEDS: ENOXAPARIN SODIUM 80 MG/0.8 ML SYRINGE SQ SCH ×2 (01:00→13:00)
[2016-09-24] MEDS: ACETAMINOPHEN/HYDROcodone 325 MG/7.5 MG TAB PO PRN ×3 (05:20→18:46)
[2016-09-24 05:26] LABS: AUTOMATED NEUTROPHIL # 3.2 TH/MM3 (1.8-7.7); BASOPHIL % 0.7 % (0.0-2.0); EOSINOPHIL # 0.2 TH/MM3 (0-0.4); EOSINOPHIL % 3.4 % (0.0-4.0); HEMATOCRIT 28.5 % (35.0-46.0); HEMO FLAGS DIFF FINAL; LYMPHOCYTE # 1.7 TH/MM3 (1.0-4.8); MEAN CELL VOLUME 83.4 FL (80.0-100.0); MEAN CORPUSCULAR HEMOGLOBIN 26.5 PG (27.0-34.0); MEAN CORPUSCULAR HGB CONC 31.8 % (32.0-36.0); MONO % 6.7 % (0.0-8.0); NEUT % 58.2 % (16.0-70.0); PLATELET COUNT 413 TH/MM3 (150-450); RED BLOOD COUNT 3.42 MIL/MM3 (4.00-5.30); RED CELL DISTRIBUTION WIDTH 18.6 % (11.6-17.2); WHITE BLOOD COUNT 5.4 TH/MM3 (4.0-11.0)
[2016-09-24 08:00] VITALS: BP 119/63; PULSE 73; RESP 17; TEMP 96.9; O2SAT 98
[2016-09-24] MEDS: DOCUSATE SODIUM 50 MG/SENNA 8.6 MG TAB PO SCH ×2 (08:58→20:45)
[2016-09-24] MEDS: FUROSEMIDE 20 MG TAB PO SCH (08:58)
[2016-09-24] MEDS: PANTOPRAZOLE SOD 40 MG DELAYED RELEASE TAB PO SCH ×2 (08:58→20:45)
[2016-09-24] MEDS: DULoxetine HCl DR 30 MG CAP PO SCH (08:58)
[2016-09-24] MEDS: LACTOBACILLUS ACIDOPHILUS TAB PO SCH ×3 (08:58→18:46)
[2016-09-24] MEDS: POLYETHYLENE GLYCOL 17 GM PKG PO SCH (08:58)
[2016-09-24] MEDS: SODIUM CHLORIDE 0.9% FLUSH 5 ML FLUSH IVF SCH ×2 (08:59→20:46)
[2016-09-24] MEDS: INSULIN DETEMIR 100 UNITS/ML VIAL SQ SCH ×2 (08:59→20:45)
[2016-09-24] MEDS: NYSTATIN 100,000 U/GM PWD 15 GM BTL TOPICAL SCH ×2 (09:00→20:47)
[2016-09-24] MEDS: CLOTRIMAZOLE 1% CREAM 15 GM TOPICAL SCH ×2 (09:00→20:47)
--- NOTE | 2016-09-24 09:29 | HHI.FPPN ---
Subjective Remarks Pt doing well on IV fluconazole - no fevers, Bld cx neg x 4 days. ECHO clear. Overall eating small amounts of food without difficulty. STill no BM per rectum. No fevers, chills, cp, sob or abdominal pain. Able to move from bed to chair unassisted. (Brett Beth MD R2) Objective Vitals Vital Signs Date Time Temp Pulse Resp B/P Pulse Ox O2 Delivery O2 Flow Rate FiO2 09/24/16 08:00 96.9 73 17 119/63 98 09/24/16 00:00 97.0 70 20 109/55 98 09/23/16 20:00 97.5 84 20 114/56 98 09/23/16 16:32 17 09/23/16 16:00 98.0 79 20 118/58 96 09/23/16 12:00 96.8 87 20 116/60 96 I/O 09/23/16 09/23/16 09/23/16 09/24/16 09/24/16 09/24/16 07:00 15:00 23:00 07:00 15:00 23:00 Intake Total 1100 ml 1286 ml 1090 ml 853 ml Output Total 1250 ml 1550 ml 300 ml 1000 ml Balance -150 ml -264 ml 790 ml -147 ml Intake Oral 240 ml 800 ml 500 ml 120 ml IV Total 860 ml 486 ml 590 ml 733 ml Output Urine Total 500 ml 600 ml 300 ml 250 ml Drainage Total 750 ml 950 ml 750 ml # Bowel Movements 0 0 0 (Brett Beth MD R2) Result Diagram: 09/24/16 0444 09/23/16 0328 Objective Remarks GENERAL: Patient is obese female lying in bed, no apparent distress. SKIN: Warm and dry. Patient with ostomy bag covering repaired fistula and mostly liquid today. Ostomy output is liquid brown without evidence of bleeding. There is a wound VAC from a second site in the mid abdomen. Both sides have good seals at this time. Skin surrounding the fistula without erythema. HEENT: Normocephalic. Atraumatic. EOMI. No scleral icterus. No injection or drainage. No nasal drainage. Moist mucous membranes. CARDIOVASCULAR: Regular rate and rhythm without murmurs, gallops, or rubs. RESPIRATORY: Clear to auscultation bilaterally without crackles or wheeze. 1+ pulses in upper extremities and lower extremities bilaterally. GASTROINTESTINAL: Abdomen obese, bowel sounds normal. Nontender. See skin above. MUSCULOSKELETAL: No notable edema of bilateral lower extremities. No calf tenderness. NEURO: Awake and alert. 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 A R COLLECTIONS REP grossly intact. (Brett Beth MD R2) A/P Assessment and Plan 65-year-old female who recently had exploration in [place] with 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 She has had a prolonged hospital stay due to recurrent sepsis bacteremia , now fungemia and new finding of a left lower lobe pulmonary embolism. Discharge Planning Discharge held until patient has negative blood cultures in final read status. This will be no sooner than 09/24/16. She had Gram + bacteremia and sepsis , Pulmonary embolism 09/13/16, and fungemia noted in blood culture on 09/15/16. (Brett Beth MD R2) Attending Attestation Pt. examined and case discussed with resident physicians I have read the above note and agree with the assessment/plan as discussed with me I was involved in all medical decision making for this patient Fred Mckinney MD (Fred Mckinney MD) Problem List: (1) Fungemia Status: Acute Plan: Soledad Albicans 09/15 - Micofungin 150 mg q 24 hr IV (09/18-09/19), switched to Fluconazole 400mg IV (09/19-present). To continue until at least pending clear cultures drawn 09/19 Patient will need ophthalmology follow-up as outpatient Echo 09/19 wnl, EF 60% (2) Pulmonary embolism Status: Acute Plan: Small segmental PE in Left lower lobe shown on CTA 09/13/16 Pt with bleeding from left lower quadrant fistula 09/14, now resolved. H&H stable at approximately 9.5. No obvious signs of bleeding at this time. On IV fluids. We'll follow-up hematology recs. Increased to Lovenox 80 mg q12h per hematology. Trending H&H. Monitor for signs of bleeding. Appreciate Heme recs regarding PE management as an inpatient and discharge planning. (3) Gram positive septicemia Status: Resolved Plan: Patient clinically decompensated approximately 09/13/16 with fever, leukocytosis, tachycardia. Repeat blood cultures on 09/13 grew staph epidermidis. Repeat blood cultures on 09/15 showed fungemia. Vancomycin IV initiated on 09/12, however, blood cultures not clear of infection until 09/15. We 'll continue IV antibiotics to complete a 7-day course with negative blood cultures, end date 09/22/16. Hospital course: Gram positive cocci in 3 out of 4 blood cx. PICC removed on 09/13. Afebrile since 09/10 aside from low-grade fever 09/17. Leukocytosis resolved. 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 General Surgery consulted at admission. 07/28: Status post incision and drainage and washout of left abdominal wall, with wound vac placement due to small bowel fistula Wound VAC changes at bedside by wound care team -Pain control with [place] 7.5325 Q4hrs prn pain 610, morphine 2 mg IV q3h prn breakthrough, hold if SBP < 110 or DBP < 60 -Dilaudid when necessary with wound changes Imaging 07/28 - Abdomen/Pelvis CT: Diffuse and extensive subcutaneous emphysema around the abdominal wall from patient's right lateral abdominal wall across midline to left lateral abdominal wall. Fluid collection in anterior left abdominal wall suspicious for subcutaneous abscess. Nonspecific edema throughout subcutaneous tissues. No acute intra-abdominal or pelvic pathology. -Chest x-ray repeated on 09/01 - no acute cardiopulmonary abnormality appreciated -Repeat CT of abdomen and pelvis with IV contrast 09/12 showing overall improvement and no acute changes Prior antibiotics: - Vancomycin, pharm consult (07/28-08/13), (09/12-09/22) - Cefepime 2gm IV q8h (07/28-08/13) - Flagyl 500 mg IV q6h (07/28-08/13) (5) Physical deconditioning Status: Acute Plan: Patient physically deconditioned after staying in bed for extended period of time. Nursing order to get patient out of bed at least 3 times a day as tolerated with assistance -PT recommends PT at rehabilitation. -Continue PT workouts while inpatient (6) Urinary tract infection Status: Resolved Plan: Resolved. Antibiotics as above (7) Anemia Status: Acute Plan: - Hemoglobin stable but anemic. She is on IV fluids at approximately half maintenance. - Continue to monitor BMP and CBC - Iron panel suggestive of anemia of chronic disease - B12 and Folate both elevated -Continue to monitor H&H as outpatient (8) Skin rash Status: Resolved Plan: Rash improved - Completed 7 day course of fluconazole on 09/03 Nystatin powder for groin, axilla, area under breasts, and skin folds Clotrimazole cream for back of neck (9) Depression Status: Chronic Plan: -Continue home Cymbalta 30 mg by mouth daily (10) Lower extremity edema Status: Resolved Plan: Resolved - Patient with no pitting edema of bilateral lower extremities on exam. - SCDs - 20 mg Lasix po daily, 25 meq potassium (11) Nutrition, metabolism, and development symptoms Status: Acute Plan: Fluids: NS at 84 ml/hr. Electrolytes: Monitor and replete as needed Nutrition: By mouth regular diet. DVT PPX: SCDs and Lovenox; risk of DVT and PE greater than risk for chronic wound bleeding GI PPX: Pantoprazole BID. wdw Dr. Mckinney. (Brett Beth MD R2) Problem Qualifiers (1) Pulmonary embolism: Qualified Code: I26.99 - Other acute pulmonary embolism without acute cor pulmonale (2) Urinary tract infection: Qualified Code: N30.01 - Acute cystitis with hematuria (3) Anemia: (4) Depression: Qualified Code: F33.9 - Recurrent major depressive disorder, remission status unspecified (5) Lower extremity edema: Qualified Code: R60.0 - Bilateral edema of lower extremity Brett Beth MD R2 Sep 24, 2016 09:29 Fred Mckinney MD Sep 24, 2016 18:48 (1) Pulmonary embolism: Qualified Code: I26.99 - Other acute pulmonary embolism without acute cor pulmonale (2) Urinary tract infection: Qualified Code: N30.01 - Acute cystitis with hematuria (3) Anemia: (4) Depression: Qualified Code: F33.9 - Recurrent major depressive disorder, remission status unspecified (5) Lower extremity edema: Qualified Code: R60.0 - Bilateral edema of lower extremity Brett Beth MD R2 Sep 24, 2016 09:29
--- NOTE | 2016-09-24 11:13 | PD.CONS ---
History of Present Illness Service Ophthalmology Consult Requested By Reason for Consult rule out fungal endophthalmitis Primary Care Physician Unknown Diagnoses: History of Present Illness 65-year-old female who recently had exploration in [place] with 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 She has had a prolonged hospital stay due to recurrent sepsis bacteremia , now fungemia (Soledad albicans) and new finding of a left lower lobe pulmonary embolism. Ophthalmology called to rule out fungal endophthalmitis. Pt currently does not have any visual complaints. No significant ocular history. Past Family Social History Allergies: Coded Allergies: Penicillin (Verified Allergy, Severe, rash, 07/28/16) Physical Exam Vital Signs Vital Signs Date Time Temp Pulse Resp B/P Pulse Ox O2 Delivery O2 Flow Rate FiO2 09/24/16 08:00 96.9 73 17 119/63 98 09/24/16 00:00 97.0 70 20 109/55 98 09/23/16 20:00 97.5 84 20 114/56 98 09/23/16 16:32 17 09/23/16 16:00 98.0 79 20 118/58 96 09/23/16 12:00 96.8 87 20 116/60 96 Physical Exam Va cc at near OD 20/30, OS 20/30 EOM full OU, no diplopia CVF full OU Pupils 2-1 no APD OU IOP normal to palpation OU Anterior exam OD - normal eyelid, C/S W&Q, K clear, AC deep, pupil round, lens clear OS - normal eyelid, C/S W&Q, K clear, AC deep, pupil round, lens clear Dilated exam OD - ON s/p/f, ves normal, vit clear, retina flat OS - ON s/p/f, ves normal, vit clear, retina flat Laboratory Laboratory Tests Test 09/24/16 04:44 White Blood Count 5.4 Red Blood Count 3.42 Hemoglobin 9.1 Hematocrit 28.5 Mean Corpuscular Volume 83.4 Mean Corpuscular Hemoglobin 26.5 Mean Corpuscular Hemoglobin 31.8 Concent Red Cell Distribution Width 18.6 Platelet Count 413 Mean Platelet Volume 6.6 Neutrophils (%) (Auto) 58.2 Lymphocytes (%) (Auto) 31.0 Monocytes (%) (Auto) 6.7 Eosinophils (%) (Auto) 3.4 Basophils (%) (Auto) 0.7 Neutrophils # (Auto) 3.2 Lymphocytes # (Auto) 1.7 Monocytes # (Auto) 0.4 Eosinophils # (Auto) 0.2 Basophils # (Auto) 0.0 CBC Comment DIFF FINAL Differential Comment Date/Time Procedure Status Source Growth 09/20/16 11:19 Aerobic Blood Culture - Preliminary Resulted Blood Peripheral NO GROWTH IN 4 DAYS 09/20/16 11:19 Anaerobic Blood Culture - Preliminary Resulted Blood Peripheral NO GROWTH IN 4 DAYS 09/19/16 14:20 Aerobic Blood Culture - Final Complete Blood Peripheral NO GROWTH IN 5 DAYS 09/19/16 14:20 Anaerobic Blood Culture - Final Complete Blood Peripheral NO GROWTH IN 5 DAYS Result Diagram: 09/24/16 0444 09/23/16 0328 Assessment and Plan Problem List: (1) Fungemia Status: Acute Plan: No ocular involvement. Kirti Gonsalez MD Sep 24, 2016 11:13
[2016-09-24 12:00] VITALS: BP 112/75; PULSE 91; RESP 16; TEMP 97.1; O2SAT 96
[2016-09-24] MEDS: SODIUM CHLOR 0.9% 1000 ML INJ 1,000 ML IV SCH ×2 (12:30→20:49)
[2016-09-24] MEDS: FLUCONAZOLE 400 MG PREMIX BAG 200 ML IV SCH (13:48)
[2016-09-24] MEDS ORDERED: FLUC200T2 PO ×2 (15:35→15:38)
--- NOTE | 2016-09-24 15:40 | HHI.DCPOC ---
Discharge Care Plan Diagnosis: (1) Abscess of abdominal wall (2) Sepsis (3) Physical deconditioning (4) Urinary tract infection (5) Pulmonary embolism (6) Fungemia (7) Enterocutaneous fistula Goals to Promote Your Health * To prevent worsening of your condition and complications * To maintain your health at the optimal level Directions to Meet Your Goals Take your medications as prescribed Follow your dietary instruction Follow activity as directed Keep your appointments as scheduled Take your immunizations and boosters as scheduled If your symptoms worsen call your PCP, if no PCP go to Urgent Care Center or Emergency Room Smoking is Dangerous to Your Health. Avoid second hand smoke Call the 24-hour hour crisis hotline for domestic abuse at Brett Beth MD R2 Sep 24, 2016 15:39
[2016-09-24 16:00] VITALS: BP 121/67; PULSE 82; RESP 16; TEMP 98.4; O2SAT 98
[2016-09-24 20:00] VITALS: BP 135/62; PULSE 76; RESP 21; TEMP 97.4; O2SAT 95
[2016-09-24] MEDS: PRAMIPEXOLE DIHYDROCHLORIDE 0.25 MG TAB PO SCH (20:44)
[2016-09-25] VITALS: BP 120/58; PULSE 78; RESP 19; TEMP 96.9; O2SAT 97
[2016-09-25] MEDS: ENOXAPARIN SODIUM 80 MG/0.8 ML SYRINGE SQ SCH ×2 (02:10→12:59)
[2016-09-25 08:00] VITALS: BP 129/60; PULSE 70; RESP 16; TEMP 97.1; O2SAT 96
[2016-09-25] MEDS: LACTOBACILLUS ACIDOPHILUS TAB PO SCH ×3 (08:17→17:45)
[2016-09-25] MEDS: PANTOPRAZOLE SOD 40 MG DELAYED RELEASE TAB PO SCH (08:17)
[2016-09-25] MEDS: FUROSEMIDE 20 MG TAB PO SCH (08:17)
[2016-09-25] MEDS: DOCUSATE SODIUM 50 MG/SENNA 8.6 MG TAB PO SCH (08:17)
[2016-09-25] MEDS: DULoxetine HCl DR 30 MG CAP PO SCH (08:17)
[2016-09-25] MEDS: SODIUM CHLORIDE 0.9% FLUSH 5 ML FLUSH IVF SCH (08:18)
[2016-09-25] MEDS: INSULIN DETEMIR 100 UNITS/ML VIAL SQ SCH (08:18)
[2016-09-25] MEDS: POLYETHYLENE GLYCOL 17 GM PKG PO SCH (08:18)
[2016-09-25] MEDS: CLOTRIMAZOLE 1% CREAM 15 GM TOPICAL SCH (08:19)
[2016-09-25] MEDS: NYSTATIN 100,000 U/GM PWD 15 GM BTL TOPICAL SCH (08:19)
--- NOTE | 2016-09-25 11:13 | HHI.FPPN ---
Subjective Remarks Feeling "the best I have ever felt since being here" Denies F C N V CP or abdominal pain. Still having leakage through fistula. ( Brett Beth MD R2) Objective Vitals Vital Signs Date Time Temp Pulse Resp B/P Pulse Ox O2 Delivery O2 Flow Rate FiO2 09/25/16 08:00 97.1 70 16 129/60 96 09/25/16 00:00 96.9 78 19 120/58 97 09/24/16 20:00 97.4 76 21 135/62 95 09/24/16 16:00 98.4 82 16 121/67 98 09/24/16 12:00 97.1 91 16 112/75 96 I/O 09/24/16 09/24/16 09/24/16 09/25/16 09/25/16 09/25/16 07:00 15:00 23:00 07:00 15:00 23:00 Intake Total 853 ml 720 ml 1040 ml 120 ml Output Total 1000 ml 800 ml 250 ml 500 ml Balance -147 ml -80 ml 790 ml -380 ml Intake Oral 120 ml 720 ml 240 ml 120 ml IV Total 733 ml 800 ml Output Urine Total 250 ml 800 ml 100 ml 500 ml Drainage Total 750 ml 150 ml # Bowel Movements 0 0 0 0 (Brett Beth MD R2) Result Diagram: 09/24/16 0444 09/23/16 0328 Imaging Last Impressions Upper Extremity Ultrasound 09/14/16 0000 Signed Impressions: Service Date/Time: Wednesday, September 14, 2016 14:21 - CONCLUSION: Superficial thrombosed left cephalic vein associated with the PICC line. Shen Scott MD FACR Lower Extremity Ultrasound 09/14/16 0000 Signed Impressions: Service Date/Time: Wednesday, September 14, 2016 14:02 - CONCLUSION: There is normal compressibility of the deep venous system from the inguinal region to the proximal calf. No echogenic clot is seen in the lumen of the common femoral, femoral, popliteal, and posterior tibial veins. There is a normal response of the venous system to proximal and distal augmentation and respiration. CONCLUSION: Negative for deep venous thrombosis. Shen Scott MD Chest X-Ray 09/13/16 0000 Signed Impressions: Service Date/Time: August 05:15 - CONCLUSION: Mild central pulmonary vascular congestion. Chintan Donovan MD CT Angiography 09/13/16 0000 Signed Impressions: Service Date/Time: August 17:11 - CONCLUSION: Small segmental pulmonary emboli in the left lower lobe. No evidence of main pulmonary artery or lobar pulmonary emboli. Small patchy areas of airspace disease without evidence of segmental or lobar consolidation. Dae Herrera MD Abdomen/Pelvis CT 09/12/16 1234 Signed Impressions: Service Date/Time: Monday, September 12, 2016 18:05 - CONCLUSION: 1. No inflammatory changes are seen within the abdomen or pelvis. Scott Pastor MD Abdomen X-Ray 09/06/16 0000 Signed Impressions: Service Date/Time: August 15:49 - CONCLUSION: 1. Nonspecific bowel gas pattern without evidence for obstruction or free air. Adrian Rendon MD Soft Tissue Ultrasound 08/31/16 0000 Signed Impressions: Service Date/Time: Wednesday, August 31, 2016 21:56 - CONCLUSION: Negative Shashi Mera MD Objective Remarks GENERAL: Patient is obese female lying in bed, no apparent distress. SKIN: Warm and dry. Patient with ostomy bag covering repaired fistula and mostly liquid today. Ostomy output is liquid brown without evidence of bleeding. There is a wound VAC from a second site in the mid abdomen. Both sides have good seals at this time. Skin surrounding the fistula without erythema. HEENT: Normocephalic. Atraumatic. EOMI. No scleral icterus. No injection or drainage. No nasal drainage. Moist mucous membranes. CARDIOVASCULAR: Regular rate and rhythm without murmurs, gallops, or rubs. RESPIRATORY: Clear to auscultation bilaterally without crackles or wheeze. 1+ pulses in upper extremities and lower extremities bilaterally. GASTROINTESTINAL: Abdomen obese, bowel sounds normal. Nontender. See skin above. MUSCULOSKELETAL: No notable edema of bilateral lower extremities. No calf tenderness. NEURO: Awake and alert. 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 MANAGER [employer] grossly intact. (Brett Beth MD R2) A/P Assessment and Plan 65-year-old female who recently had exploration in [place] with 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 She has had a prolonged hospital stay due to recurrent sepsis bacteremia , now fungemia and new finding of a left lower lobe pulmonary embolism. Discharge Planning Discharge held until patient has negative blood cultures in final read status. This will be no sooner than 09/24/16. She had Gram + bacteremia and sepsis , Pulmonary embolism 09/13/16, and fungemia noted in blood culture on 09/15/16. These acute issues have resolved - she will go home on oral antifungal as well as lovenox 80 mg sq BID. She will need f/u with gen surg as well as hematology. (Brett Beth MD R2) Attending Attestation Pt. examined and case discussed with resident physician I have read the above note and agree with the assessment/plan as discussed with me I was involved in all medical decision making for this patient Fred Mckinney MD (Fred Mckinney MD) Problem List: (1) Fungemia Status: Acute Plan: Soledad Albicans 09/15 - Micofungin 150 mg q 24 hr IV (09/18-09/19), switched to Fluconazole 400mg IV (09/19-present). To continue until at least pending clear cultures drawn 09/19 Patient will need ophthalmology follow-up as outpatient Echo 09/19 wnl, EF 60% (2) Pulmonary embolism Status: Acute Plan: Small segmental PE in Left lower lobe shown on CTA 09/13/16 Pt with bleeding from left lower quadrant fistula 09/14, now resolved. H&H stable at approximately 9.5. No obvious signs of bleeding at this time. On IV fluids. We'll follow-up hematology recs. Increased to Lovenox 80 mg q12h per hematology. Trending H&H. Monitor for signs of bleeding. Appreciate Heme recs regarding PE management as an inpatient and discharge planning. (3) Gram positive septicemia Status: Resolved Plan: Patient clinically decompensated approximately 09/13/16 with fever, leukocytosis, tachycardia. Repeat blood cultures on 09/13 grew staph epidermidis. Repeat blood cultures on 09/15 showed fungemia. Vancomycin IV initiated on 09/12, however, blood cultures not clear of infection until 09/15. We 'll continue IV antibiotics to complete a 7-day course with negative blood cultures, end date 09/22/16. Hospital course: Gram positive cocci in 3 out of 4 blood cx. PICC removed on 09/13. Afebrile since 09/10 aside from low-grade fever 09/17. Leukocytosis resolved. 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 General Surgery consulted at admission. 07/28: Status post incision and drainage and washout of left abdominal wall, with wound vac placement due to small bowel fistula Wound VAC changes at bedside by wound care team -Pain control with [place] 7.5325 Q4hrs prn pain 610, morphine 2 mg IV q3h prn breakthrough, hold if SBP < 110 or DBP < 60 -Dilaudid when necessary with wound changes Imaging 07/28 - Abdomen/Pelvis CT: Diffuse and extensive subcutaneous emphysema around the abdominal wall from patient's right lateral abdominal wall across midline to left lateral abdominal wall. Fluid collection in anterior left abdominal wall suspicious for subcutaneous abscess. Nonspecific edema throughout subcutaneous tissues. No acute intra-abdominal or pelvic pathology. -Chest x-ray repeated on 09/01 - no acute cardiopulmonary abnormality appreciated -Repeat CT of abdomen and pelvis with IV contrast 09/12 showing overall improvement and no acute changes Prior antibiotics: - Vancomycin, pharm consult (07/28-08/13), (09/12-09/22) - Cefepime 2gm IV q8h (07/28-08/13) - Flagyl 500 mg IV q6h (07/28-08/13) (5) Physical deconditioning Status: Acute Plan: Patient physically deconditioned after staying in bed for extended period of time. Nursing order to get patient out of bed at least 3 times a day as tolerated with assistance -PT recommends PT at rehabilitation. -Continue PT workouts while inpatient (6) Urinary tract infection Status: Resolved Plan: Resolved. Antibiotics as above (7) Anemia Status: Acute Plan: - Hemoglobin stable but anemic. She is on IV fluids at approximately half maintenance. - Continue to monitor BMP and CBC - Iron panel suggestive of anemia of chronic disease - B12 and Folate both elevated -Continue to monitor H&H as outpatient (8) Skin rash Status: Resolved Plan: Rash improved - Completed 7 day course of fluconazole on / Nystatin powder for groin, axilla, area under breasts, and skin folds Clotrimazole cream for back of neck (9) Depression Status: Chronic Plan: -Continue home Cymbalta 30 mg by mouth daily (10) Lower extremity edema Status: Resolved Plan: Resolved - Patient with no pitting edema of bilateral lower extremities on exam. - SCDs - 20 mg Lasix po daily, 25 meq potassium (11) Nutrition, metabolism, and development symptoms Status: Acute Plan: Fluids: NS at 84 ml/hr. Electrolytes: Monitor and replete as needed Nutrition: By mouth regular diet. DVT PPX: SCDs and Lovenox; risk of DVT and PE greater than risk for chronic wound bleeding GI PPX: Pantoprazole BID. wdw Dr. Mckinney. (Brett Beth MD R2) Problem Qualifiers (1) Pulmonary embolism: Qualified Code: I26.99 - Other acute pulmonary embolism without acute cor pulmonale (2) Urinary tract infection: Qualified Code: N30.01 - Acute cystitis with hematuria (3) Anemia: (4) Depression: Qualified Code: F33.9 - Recurrent major depressive disorder, remission status unspecified (5) Lower extremity edema: Qualified Code: R60.0 - Bilateral edema of lower extremity Brett Beth MD R2 Sep 25, 2016 11:13 Fred Mckinney MD Sep 25, 2016 18:55
[2016-09-25 11:32] LABS: HEMATOCRIT 30.7 % (35.0-46.0); MEAN CORPUSCULAR HEMOGLOBIN 26.4 PG (27.0-34.0); MEAN CORPUSCULAR HGB CONC 31.8 % (32.0-36.0); PLATELET COUNT 474 TH/MM3 (150-450); RED BLOOD COUNT 3.69 MIL/MM3 (4.00-5.30); RED CELL DISTRIBUTION WIDTH 18.8 % (11.6-17.2); REVIEW FLAG FINAL; WHITE BLOOD COUNT 5.3 TH/MM3 (4.0-11.0)
[2016-09-25 12:00] VITALS: BP 121/66; PULSE 82; RESP 17; TEMP 97.1; O2SAT 96
[2016-09-25] MEDS: SODIUM CHLOR 0.9% 1000 ML INJ 1,000 ML IV SCH (12:20)
[2016-09-25] MEDS: FLUCONAZOLE 400 MG PREMIX BAG 200 ML IV SCH (15:00)
[2016-09-25 16:00] VITALS: BP 122/56; PULSE 85; RESP 17; TEMP 97.8; O2SAT 96
[2016-09-25] MEDS: ACETAMINOPHEN/HYDROcodone 325 MG/7.5 MG TAB PO PRN (17:45)
[2016-09-25] MEDS ORDERED: ENOXAPARIN SODIUM 100 MG/ML SYRINGE SQ SCH (18:00)
--- NOTE | 2016-09-25 18:02 | PD.ONC.PN ---
Subjective Subjective Remarks Mrs. Washington was seen and examined. She sitting up out of bed, she tells me she will be discharged to [facility] rehabilitation later this evening. She tells me she is encouraged by what her surgeons told her i.e. that her fistula is closing. She denies overt bleeding and is tolerating anticoagulation well. She remains on Lovenox 80 mg subcutaneous twice daily. She denies difficulty breathing or chest pain. Objective Data Date Time Temp Pulse Resp B/P Pulse Ox O2 Delivery O2 Flow Rate FiO2 09/25/16 16:00 97.8 85 17 122/56 96 09/25/16 12:00 97.1 82 17 121/66 96 09/25/16 08:00 97.1 70 16 129/60 96 09/25/16 00:00 96.9 78 19 120/58 97 09/24/16 20:00 97.4 76 21 135/62 95 09/25/16 09/25/16 09/25/16 07:00 15:00 23:00 Intake Total 120 ml 1260 ml Output Total 500 ml 700 ml 1300 ml Balance -380 ml 560 ml -1300 ml Result Diagram: 09/25/16 1120 09/23/16 0328 Laboratory Results Laboratory Tests Test 09/25/16 11:20 White Blood Count 5.3 TH/MM3 Red Blood Count 3.69 MIL/MM3 Hemoglobin 9.8 GM/DL Hematocrit 30.7 % Mean Corpuscular Volume 83.0 FL Mean Corpuscular Hemoglobin 26.4 PG Mean Corpuscular Hemoglobin 31.8 % Concent Red Cell Distribution Width 18.8 % Platelet Count 474 TH/MM3 Mean Platelet Volume 6.4 FL Administered Medications Medications (Trade) Dose Ordered Sig/Johnie Route PRN Reason Start Time Stop Time Status Last Admin Dose Admin Miscellaneous Information Patient in critical care unit? Ass... [id number] XX 07/28/16 23:45 07/28/16 23:45 IV Flush (NS Flush) 2 ml UNSCH PRN IVF FLUSH AFTER USING IV ACCESS 07/29/16 12:15 09/20/16 06:14 IV Flush (NS Flush) 2 ml BID IVF 07/29/16 21:00 09/24/16 20:46 Acetaminophen/ Hydrocodone Bitart ([place] 7.5-325 Mg) 1 tab Q4H PRN PO PAIN SCALE 6 TO 10 1/30/17 11:00 09/25/16 17:45 Morphine Sulfate (Morphine Inj) 2 mg Q3H PRN IV PUSH BREAKTHROUGH PAIN 07/30/16 11:00 08/05/16 02:35 Zolpidem Tartrate (Ambien) 5 mg HS PRN PO INSOMNIA 07/30/16 21:00 09/22/16 22:37 Pramipexole Dihydrochloride (Mirapex) 0.5 mg HS@2000 PO 08/03/16 20:00 09/24/16 20:44 Furosemide (Lasix) 20 mg DAILY PO 08/05/16 09:00 09/25/16 08:17 Lactobacillus Acidophilus (Lactinex) 1 tab TID PO 08/13/16 18:00 09/25/16 17:45 Hydromorphone HCl (Dilaudid Pf Inj) 1 mg MoWeFr PRN IV DRESSING CHANGES 08/15/16 10:30 08/28/16 21:58 Bisacodyl (Dulcolax Supp) 10 mg DAILY PRN RECTAL constipation 08/17/16 11:00 09/08/16 12:11 Clotrimazole (Lotrimin 1% Cream) 1 applic Q12HR TOPICAL 08/22/16 15:00 09/25/16 08:19 Nystatin (Mycostatin Powder) 1 applic Q12HR TOPICAL 08/22/16 15:00 09/25/16 08:19 Octreotide Acetate (SandoSTATIN INJ) 100 mcg Q8HR IV PUSH 08/23/16 22:00 Hold 09/21/16 12:57 Multi-Ingredient Ointment (Eucerin Cream) 1 applic Q6H PRN TOPICAL ITCHING 08/24/16 14:00 09/14/16 11:35 Diphenhydramine HCl (Benadryl 2% Cream) 1 applic TID PRN TOPICAL ITCHING 08/24/16 14:00 09/20/16 22:19 Ondansetron HCl (Zofran Inj) 4 mg Q6HR PRN IV PUSH NAUSEA OR VOMITING 08/28/16 16:00 09/21/16 12:56 Acetaminophen (Tylenol) 650 mg Q6HR PRN PO TEMP>101F, PAIN 1-10, HEADACHE 08/30/16 14:30 09/13/16 12:43 Duloxetine HCl (Cymbalta Dr) 30 mg DAILY PO 09/01/16 11:00 09/25/16 08:17 Alteplase, Recombinant (Cathflo Activase Inj) 2 mg Q2H PRN INTRACATH OCCLUDED CATHETER 09/03/16 07:45 09/12/16 07:42 Senna/Docusate Sodium (Annette-Colace) 2 tab BID PO 09/08/16 21:00 09/25/16 08:17 Polyethylene Glycol (Miralax) 17 gm DAILY PO 09/08/16 12:00 09/23/16 08:06 Acetaminophen/ Butalbital/ Caffeine 1 tab 1 tab Q6H PRN PO HEADACHE 09/12/16 10:45 09/12/16 14:01 Sodium Chloride (NS 1000 ml Inj) 1,000 ml @ 84 mls/hr [id number] IV 09/12/16 14:30 09/24/16 20:49 Insulin Detemir (Levemir Inj) 5 units Q12HR SQ 09/12/16 21:00 09/21/16 21:10 Pantoprazole Sodium 40 mg 40 mg BID PO 09/13/16 22:30 09/25/16 08:17 Fluconazole/ Sodium Chloride (Diflucan 400 Mg Premix Bag) 200 ml @ 100 mls/hr Q24H IV 09/20/16 15:00 09/24/16 13:48 Objective Remarks GENERAL APPEARANCE: Ms. Menard is a pleasant appearing elderly female, she is Sitting up in the bedside chair, she appears to be no acute distress. Her is at bedside. HEAD, EYES, EARS, NOSE, AND THROAT: Head atraumatic, normocephalic, conjunctive are mildly pale sclerae are anicteric, Extraocular muscles intact, Pupils equal, round, reactive to light and accommodation, oral exam no pharyngeal erythema. NECK: Neck exam no palpable cervical or supraclavicular lymphadenopathy. RESPIRATORY EXAMINATION: Good air movement bilaterally. No added breath sounds. CARDIOVASCULAR SYSTEM: Regular rate and rhythm, S1-S2. No obvious murmurs, gallops. ABDOMEN: Obese belly, she has a wound vac in the epigastric area. She has a large ostomy bag over the left lower quadrant containing fecal matter, no active bleeding in there. 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 The abdomen is otherwise nontender. Positive bowel sounds. LOWER EXTREMITIES: Severe muscle atrophy, no pretibial edema. No calf tenderness. CENTRAL NERVOUS SYSTEM: No focal sensory motor deficits. Assessment/Plan Problem List: (1) Pulmonary embolism Status: Acute Plan: 09/21/2016: increase Lovenox 80mg SQ q 12. monitor hgb 09/17/2016: Lovenox dosing increased to 60 mg subcutaneous every 12 hours. 09/16: slight decrease in hemoglobin with no obvious bleeding. would continue current dose of Lovenox and check H/H at noon. If there is further evidence of fall or bleeding, would reduce or d/c Lovenox. 09/15 --increased to Lovenox 40mg SQ BID 08/13-09/14: on Lovenox 40mg SQ daily 09/13: CTA shows PE. Assessment 65y/o female with competing needs of PE vs. intermittently bleeding colocutaneous fistula. (History from initial consult) Ms. Menard is a 65-year-old female who has been hospitalized at this facility since late July 2016. The patient was admitted initially due to swelling and pain involving her abdomen, specifically in the left lower quadrant. She has a history of multiple abdominal surgeries including gastric bypass as well as multiple surgeries for abdominal wall hernias and fistula repair. It is apparent based on clinical exam that shortly after her admission she was noted to have a large abscess involving the abdominal wall. She underwent incision and drainage of this. The first surgery was performed on 08/02/2016. She subsequently underwent extensive debridement of necrotic tissue and was found to have a fistula tract going into the colon. A wound vac was placed and she was initiated on antibiotics. Over the course of this hospitalization she has had multiple surgical dbridements. 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 In fact most of her stools are coming out of the colocutaneous fistula. For management of her antibiotics she did have a left upper extremity PICC line placed. The PICC line was removed on 09/14/2015 and the patient reports noting immediate onset difficulty breathing. CT angiogram was done which revealed a subsegmental pulmonary emboli involving the left lower lobe. She was initiated on anticoagulation. However, she was noted to have increased bleeding from the fistula site, the bleeding was described as red blood. Subsequent ultrasound Doppler studies of the upper and lower extremities indicated no evidence of lower extremity deep venous thromboses but she was found to have a superficial venous thrombosis involving the left cephalic vein (ipsilateral to the PICC line). Plan Pulmonary emboli: Continue anticoagulation with Lovenox at 80 mg subcutaneous every 12 hours. I have scheduled her to see me in follow-up on 10/02/2016. Should her hemoglobin and hematocrit remained stable and should there be no evidence of overt bleeding I will up titrate her anticoagulation to full therapeutic dose. Problem Qualifiers (1) Pulmonary embolism: Qualified Code: I26.99 - Other acute pulmonary embolism without acute cor pulmonale Pj Bai MD Sep 25, 2016 18:02
--- NOTE | 2016-09-26 10:52 | HHI.DS ---
Discharge Summary Admission Date Jul 28, 2016 at 12:23 Discharge Date: Sep 25, 2016 Admitting Diagnosis (1) Fungemia Plan: Soledad Albicans 09/15 - Micofungin 150 mg q 24 hr IV (09/18-09/19), switched to Fluconazole 400mg IV (09/19-present). To continue until at least pending clear cultures drawn 09/19 Patient will need ophthalmology follow-up as outpatient Echo 09/19 wnl, EF 60% (2) Pulmonary embolism Plan: Small segmental PE in Left lower lobe shown on CTA 09/13/16 Pt with bleeding from left lower quadrant fistula 09/14, now resolved. H&H stable at approximately 9.5. No obvious signs of bleeding at this time. On IV fluids. We'll follow-up hematology recs. Increased to Lovenox 80 mg q12h per hematology. Trending H&H. Monitor for signs of bleeding. Appreciate Heme recs regarding PE management as an inpatient and discharge planning. (3) Gram positive septicemia Plan: Patient clinically decompensated approximately 09/13/16 with fever, leukocytosis, tachycardia. Repeat blood cultures on 09/13 grew staph epidermidis. Repeat blood cultures on 09/15 showed fungemia. Vancomycin IV initiated on 09/12, however, blood cultures not clear of infection until 09/15. We 'll continue IV antibiotics to complete a 7-day course with negative blood cultures, end date 09/22/16. Hospital course: Gram positive cocci in 3 out of 4 blood cx. PICC removed on 09/13. Afebrile since 09/10 aside from low-grade fever 09/17. Leukocytosis resolved. Blood culture 09/11 showing staph epidermidis in both bottles Repeat blood cultures 09/13 secondary to new-onset fever showed staph epidermidis in 1 out of 2 bottles Repeat blood culture 09/15 showing no fungemia Repeat blood cultures 09/19 and 09/20 showing no growth to date Vancomycin 1750 g IV q24h (started 09/12, end date 09/22) Infectious disease consult was placed, appreciate recommendations (4) Enterocutaneous fistula Plan: Chronic. General Surgery consulted at admission. 07/28: Status post incision and drainage and washout of left abdominal wall, with wound vac placement due to small bowel fistula Wound VAC changes at bedside by wound care team -Pain control with [place] 7.5325 Q4hrs prn pain 610, morphine 2 mg IV q3h prn breakthrough, hold if SBP < 110 or DBP < 60 -Dilaudid when necessary with wound changes Imaging 07/28 - Abdomen/Pelvis CT: Diffuse and extensive subcutaneous emphysema around the abdominal wall from patient's right lateral abdominal wall across midline to left lateral abdominal wall. Fluid collection in anterior left abdominal wall suspicious for subcutaneous abscess. Nonspecific edema throughout subcutaneous tissues. No acute intra-abdominal or pelvic pathology. -Chest x-ray repeated on 09/01 - no acute cardiopulmonary abnormality appreciated -Repeat CT of abdomen and pelvis with IV contrast 09/12 showing overall improvement and no acute changes Prior antibiotics: - Vancomycin, pharm consult (07/28-08/13), (09/12-09/22) - Cefepime 2gm IV q8h (07/28-08/13) - Flagyl 500 mg IV q6h (07/28-08/13) (5) Physical deconditioning Plan: Patient physically deconditioned after staying in bed for extended period of time. Nursing order to get patient out of bed at least 3 times a day as tolerated with assistance -PT recommends PT at rehabilitation. -Continue PT workouts while inpatient (6) Urinary tract infection Plan: Resolved. Antibiotics as above (7) Anemia Plan: - Hemoglobin stable but anemic. She is on IV fluids at approximately half maintenance. - Continue to monitor BMP and CBC - Iron panel suggestive of anemia of chronic disease - B12 and Folate both elevated -Continue to monitor H&H as outpatient (8) Skin rash Plan: Rash improved - Completed 7 day course of fluconazole on 09/03 Nystatin powder for groin, axilla, area under breasts, and skin folds Clotrimazole cream for back of neck (9) Depression Plan: -Continue home Cymbalta 30 mg by mouth daily (10) Lower extremity edema Plan: Resolved - Patient with no pitting edema of bilateral lower extremities on exam. - SCDs - 20 mg Lasix po daily, 25 meq potassium Consultants Infectious disease, hematology, general surgery Brief History 65 yo F presenting to the ED for abdominal wall abscess/cellulitis vs. fistula. She has a long history of abdominal procedures/surgeries with a recent complex abdominal reconstruction in 10/14. She eventually developed an infection of the mesh and fistula, requiring another procedure (done in [place]) for colonic fistula repair and repair of ventral hernia. She was treated for sepsis with broad spectrum antibiotics while hospitalized, discharged on 07/23/16 on cefdinir and flagyl. Since her discharge, she has noted erythema, firmness, and pain around her abdomen. She pushed on her abdomen this morning and noted a release of fluid that she did not know if it was infection or stool material. She was brought to the ED for further evaluation. She denies fevers or chills. Denies nausea/ vomiting. Denies diaphoresis or lightheadedness. She was seen after surgery had incised 2 areas with drainage of 500ml of purulent/fecal material. Patient states that the pain in her abdomen is much better after the drainage. CBC/BMP: 09/25/16 1120 09/23/16 0328 Significant Findings Laboratory Tests Test 09/24/16 09/25/16 04:44 11:20 Red Blood Count 3.42 MIL/MM3 3.69 MIL/MM3 (4.00-5.30) (4.00-5.30) Hemoglobin 9.1 GM/DL 9.8 GM/DL (11.6-15.3) (11.6-15.3) Hematocrit 28.5 % 30.7 % (35.0-46.0) (35.0-46.0) Mean Corpuscular Hemoglobin 26.5 PG 26.4 PG (27.0-34.0) (27.0-34.0) Mean Corpuscular Hemoglobin 31.8 % 31.8 % Concent (32.0-36.0) (32.0-36.0) Red Cell Distribution Width 18.6 % 18.8 % (11.6-17.2) (11.6-17.2) Mean Platelet Volume 6.6 FL 6.4 FL (7.0-11.0) (7.0-11.0) Platelet Count 474 TH/MM3 (150-450) Imaging Last Impressions Upper Extremity Ultrasound 09/14/16 0000 Signed Impressions: Service Date/Time: Wednesday, September 14, 2016 14:21 - CONCLUSION: Superficial thrombosed left cephalic vein associated with the PICC line. Shen Scott MD FACR Lower Extremity Ultrasound 09/14/16 0000 Signed Impressions: Service Date/Time: Wednesday, September 14, 2016 14:02 - CONCLUSION: There is normal compressibility of the deep venous system from the inguinal region to the proximal calf. No echogenic clot is seen in the lumen of the common femoral, femoral, popliteal, and posterior tibial veins. There is a normal response of the venous system to proximal and distal augmentation and respiration. MD CONCLUSION: Negative for deep venous thrombosis. Shen Scott MD Chest X-Ray 09/13/16 0000 Signed Impressions: Service Date/Time: August 05:15 - CONCLUSION: Mild central pulmonary vascular congestion. Chintan Donovan MD CT Angiography 09/13/16 0000 Signed Impressions: Service Date/Time: August 17:11 - CONCLUSION: Small segmental pulmonary emboli in the left lower lobe. No evidence of main pulmonary artery or lobar pulmonary emboli. Small patchy areas of airspace disease without evidence of segmental or lobar consolidation. Dae Herrera MD Abdomen/Pelvis CT 09/12/16 1234 Signed Impressions: Service Date/Time: Monday, September 12, 2016 18:05 - CONCLUSION: 1. No inflammatory changes are seen within the abdomen or pelvis. Scott Pastor MD Abdomen X-Ray 09/06/16 0000 Signed Impressions: Service Date/Time: August 15:49 - CONCLUSION: 1. Nonspecific bowel gas pattern without evidence for obstruction or free air. Adrian Rendon MD Soft Tissue Ultrasound 08/31/16 0000 Signed Impressions: Service Date/Time: Wednesday, August 31, 2016 21:56 - CONCLUSION: Negative Shashi Mera MD PE at Discharge GENERAL: Patient is obese female lying in bed, no apparent distress. SKIN: Warm and dry. Patient with ostomy bag covering repaired fistula and mostly liquid today. Ostomy output is liquid brown without evidence of bleeding. There is a wound VAC from a second site in the mid abdomen. Both sides have good seals at this time. Skin surrounding the fistula without erythema. HEENT: Normocephalic. Atraumatic. EOMI. No scleral icterus. No injection or drainage. No nasal drainage. Moist mucous membranes. CARDIOVASCULAR: Regular rate and rhythm without murmurs, gallops, or rubs. RESPIRATORY: Clear to auscultation bilaterally without crackles or wheeze. 1+ pulses in upper extremities and lower extremities bilaterally. GASTROINTESTINAL: Abdomen obese, bowel sounds normal. Nontender. See skin above. MUSCULOSKELETAL: No notable edema of bilateral lower extremities. No calf tenderness. NEURO: Awake and alert. 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 [employer] grossly intact. Hospital Course She is a 65-year-old female who had exploration in [place] with closure of a colocutaneous fistula on the right side of the abdomen with subsequent development of two small bowel fistulae along the abdominal wall presently with ostomy bag covering fistula repair, which is connected to wound VAC. She presented with abdominal wall abscess, which was treated with long-term, broad- spectrum antibiotics, which has since been discontinued. Pt with another area of wound dehiscence along midline incision that is also connected to wound VAC; this seems to be healing well. PICC line was placed for TPN during her hospital stay to promote wound healing increased nutritional intake, and to decrease ostomy output. However, patient was found to have clinical signs of sepsis and blood cultures 09/11/16 was positive for staph epidermidis, sensitive to vancomycin. Source of infection and concluded to be PICC line, therefore it was removed. Repeat blood cultures showed persistent infection, and IV antibiotics were continued. At the same time of repeat sepsis workup, patient was noted to have a left lower lobe pulmonary embolism, possibly related to PICC line removal. She was not started on anticoagulation due to fistula bleeding with Hemoccult positive. Hematology was consulted, followed patient throughout the rest of hospital stay and Lovenox was titrated to discharge dose (80 mq sq bid) after no recurrence of fistula bleeding. DVT screening of the upper and lower extremity by ultrasound were all negative. However, patient was found to have Soledad albicans in repeat blood culture on . ID was reconsulted on patient and IV micafungin was initiated with transition to IV fluconazole shortly thereafter. Repeat blood cultures 09/19 showed no continued growth of either bacteria or fungus. Ophthalmology was consulted as the patient and acute eye abnormalities related to fungemia. She will continue by mouth fluconazole as outpatient for 2 weeks following normal blood culture. Chronic fistula continued to leak during hospital stay, disrupting adhesive occlusive dressing. Leaks caused irritation of the skin. Wound care team and general surgery see the patient about every other day to modify the wound VAC and try to stop the leak, which was stable at discharge and wound VAC was discontinued prior to discharge. She has also had multiple fungal skin infections for which she is being treated with nystatin and clotrimazole topical and for which she completed 5 day course of fluconazole by mouth. Patient was discharged in stable condition to [facility] with assistance of case management. Pt Condition on Discharge: Stable Discharge Disposition: Discharge to SNF Discharge Instructions DIET: Follow Instructions for: As Tolerated, No Restrictions Activities you can perform: Weight Bearing as Velma Follow up Referrals: Hematology - 1 Week with Pj Bai MD SNF/HALFWAY/ with [facility] - 3 Weeks with Adrian Velez MD New Medications: Fluconazole (Fluconazole) 200 Mg Tab 200 MG PO BID Infection #18 Ref 0 TAB Alteplase Inj (Cathflo Activase Inj) 2 Mg Inj 2 MG INTRACATH Q2H PRN OCCLUDED CATHETER #30 Ref 0 INJECTION Clotrimazole Topical (Clotrimazole Anti-Fungal Topical) 1% Cream 1 APPLIC TOPICAL Q12HR #1 Ref 0 TUBE Famotidine (Famotidine) 20 Mg Tab 20 MG PO Q12HR #60 Ref 0 TAB Furosemide (Furosemide) 20 Mg Tab 20 MG PO DAILY #30 Ref 0 TAB Hydrocodone-Acetaminophen (Hydrocodone-Acetaminophen) 7.5-325 mg Tab 1 TAB PO Q4H PRN PAIN SCALE 6 TO 10 #30 Ref 0 TAB Lactobacillus Acidophilus (Acidophilus/l-Sporogenes) 1 Tab Tab 1 TAB PO TID #90 Ref 0 TAB Lactulose Liq (Lactulose Liq) 10 Gm/15 Ml Soln 30 ML PO BID #180 ML Pramipexole (Mirapex) 0.25 Mg Tab 0.5 MG PO HS@2000 #30 Ref 0 TAB Sennosides-Docusate Sodium (Senna Plus 8.6-50 mg) 1 Tab Tab 2 TAB PO BID #120 Ref 0 TAB Zolpidem (Ambien) 5 Mg Tab 5 MG PO HS PRN INSOMNIA #20 Ref 0 TAB Continued Medications: Calcium Carbonate-Vitamin D (Oscal 500/200 D-3) Unknown Strength Tab Unknown Dose PO BID Calcium Supplement Ref [address] (Duloxetine DR) 30 Mg Capdr 30 MG PO DAILY #30 Ref 0 CAP Ferrous Sulfate (Ferrous Sulfate) 325 Mg Tab 325 MG PO DAILY Nutritional Supplement #30 Ref 0 TAB Pramipexole (Mirapex) 0.5 Mg Tab 0.5 MG PO HS #30 TAB Discontinued Medications: Cefdinir (Cefdinir) 300 Mg Cap 300 MG PO DAILY Infection Ref 0 CAP Hydrocodone-Acetaminophen (Hydrocodone-Acetaminophen) 5-325 mg Tab 1 TAB PO Q4H PRN PAIN Ref 0 TAB Metronidazole (Metronidazole) 500 Mg Tab 500 MG PO TID Infection Ref 0 TAB Norma Wheeler MD R1 Sep 26, 2016 10:52
== END 2016-09-25 18:18 | DRG 853 ==
LOC: NEPC 07:08 → NEDA 12:23 → HIMN 15:15 → N03B 07-29 12:08 → N03A 07-29 13:35 → N07A 08-03 16:51
PROVIDERS: ADMIT Family Medicine; ATTEND Family Medicine
PROC: 0W9F30Z Drainage of Abdominal Wall with Drainage Device, Percutaneous Approach (ICD-10-PCS; 2016-07-28)
PROC: 30233N1 Transfusion of Nonautologous Red Blood Cells into Peripheral Vein, Percutaneous Approach (ICD-10-PCS; 2016-07-28)
PROC: 0W9F30Z Drainage of Abdominal Wall with Drainage Device, Percutaneous Approach (ICD-10-PCS; 2016-07-29)
PROC: 0JB80ZZ Excision of Abdomen Subcutaneous Tissue and Fascia, Open Approach (ICD-10-PCS; principal; 2016-07-29 10:32)
PROC: 0JD83ZZ Extraction of Abdomen Subcutaneous Tissue and Fascia, Percutaneous Approach (ICD-10-PCS; 2016-08-01)
PROC: 2W13X6Z Compression of Abdominal Wall using Pressure Dressing (ICD-10-PCS; 2016-08-01)
PROC: 0JB80ZZ Excision of Abdomen Subcutaneous Tissue and Fascia, Open Approach (ICD-10-PCS; 2016-08-03)
PROC: 2W03X6Z Change Pressure Dressing on Abdominal Wall (ICD-10-PCS; 2016-08-03)
PROC: 0JB80ZZ Excision of Abdomen Subcutaneous Tissue and Fascia, Open Approach (ICD-10-PCS; 2016-08-06)
PROC: 2W03X6Z Change Pressure Dressing on Abdominal Wall (ICD-10-PCS; 2016-08-06)
DX: A41.9 Sepsis, unspecified organism (principal); I26.99 Other pulmonary embolism without acute cor pulmonale; E87.0 Hyperosmolality and hypernatremia; K63.2 Fistula of intestine; T81.31XA Disruption of external operation (surgical) wound, not elsewhere classified, initial encounter; I82.612 Acute embolism and thrombosis of superficial veins of left upper extremity; E87.8 Other disorders of electrolyte and fluid balance, not elsewhere classified; M32.9 Systemic lupus erythematosus, unspecified; Z68.42 Body mass index [BMI] 45.0-49.9, adult; L02.211 Cutaneous abscess of abdominal wall; J98.11 Atelectasis; T82.868A Thrombosis due to vascular prosthetic devices, implants and grafts, initial encounter; N39.0 Urinary tract infection, site not specified; T80.211A Bloodstream infection due to central venous catheter, initial encounter; B37.3 Candidiasis of vulva and vagina; E87.70 Fluid overload, unspecified; R60.0 Localized edema; R21 Rash and other nonspecific skin eruption; D64.9 Anemia, unspecified; A41.1 Sepsis due to other specified staphylococcus; E66.01 Morbid (severe) obesity due to excess calories; B37.7 Candidal sepsis; E11.9 Type 2 diabetes mellitus without complications; F32.9 Major depressive disorder, single episode, unspecified; B96.1 Klebsiella pneumoniae [K. pneumoniae] as the cause of diseases classified elsewhere; G25.81 Restless legs syndrome; Z87.891 Personal history of nicotine dependence; Z88.0 Allergy status to penicillin
CPT/HCPCS: 36430; 36569; 71010; 71020; 71275; 74000; 74177; 76937; 76999; 80048; 80053; 80202; 81001; 82272; 82310; 82565; 82607; 82728; 82746; 82747; 82948; 83540; 83550; 83605; 83690; 83735; 84100; 84155; 84484; 85007; 85014; 85018; 85025; 85027; 85044; 85610; 85730; 86403; 86850; 86900; 86901; 86920; 87040; 87077; 87086; 87186; 87205; 87641; 93005; 93306; 93308; 93970; 94002; 94150; 94667; 96360; 96361; C9113; J0131; J0692; J0696; J0744; J1100; J1130; J1170; J1450; J1642; J1650; J1756; J1940; J1956; J2175; J2248; J2250; J2270; J2354; J2370; J2405; J2550; J2710; J2997; J3010; J3370; J7030; J7040; J7050; J7120; P9016; P9045; Q9963; Q9967

== ENCOUNTER 2016-10-05 13:22 | Inpatient (IN) | payer MEDICARE ==
[2016-10-05] VITALS (7 sets, daily range): BP systolic 98–103; BP diastolic 45–58; PULSE 87–98; RESP 16–18; TEMP 96.7–98.1; O2SAT 98–100
[~2016-10-05] VITALS: Ht 154.9 cm; Wt 94.9 kg
[~2016-10-05 13:22] MED LIST changes: +AMBI5TAB PO; +CLOT1CRE6 TOPICAL; +DULO1CAP2 PO; +FAMO20TA2 PO; +FLUC200T2 PO; +FURO20TA PO; +HYDR-3580 PO; +LACT PO; +LACT10SO PO; +MIRA0.25 PO; +SENN1TAB PO; -TRAM50TA PO; +[UNRECOGNIZED DRUG - CODE] INTRACATH
[2016-10-05] MEDS ORDERED: DEXTROSE 50% IN WATER 50 ML VIAL(D50) IV PUSH ONE (13:45)
[2016-10-05] MEDS ORDERED: CALCIUM GLUCONATE 10% 1 GM/10 ML VIAL SLOW IVP ONE (13:45)
[2016-10-05] MEDS ORDERED: SODIUM BICARBONATE 8.4% SOLN 50 MEQ/50 ML VIAL SLOW IVP ONE (13:45)
[2016-10-05] MEDS ORDERED: SODIUM POLYSTYRENE SULFONATE SUSP 15 GM/60 ML CUP PO ONE (13:45)
[2016-10-05] MEDS ORDERED: INSULIN HUMAN REGULAR 1,000 UNITS/10 ML VIAL IV PUSH ONE (13:45)
[2016-10-05 14:20] LABS: AUTOMATED NEUTROPHIL # 5.9 TH/MM3 (1.8-7.7); BASOPHIL # 0.1 TH/MM3 (0-0.2); BASOPHIL % 0.9 % (0.0-2.0); EOSINOPHIL # 0.2 TH/MM3 (0-0.4); EOSINOPHIL % 1.8 % (0.0-4.0); HEMATOCRIT 40.1 % (35.0-46.0); HEMO FLAGS DIFF FINAL; LYMPH % 22.4 % (9.0-44.0); LYMPHOCYTE # 1.9 TH/MM3 (1.0-4.8); MEAN CELL VOLUME 85.9 FL (80.0-100.0); MEAN CORPUSCULAR HEMOGLOBIN 27.5 PG (27.0-34.0); MONO % 6.7 % (0.0-8.0); NEUT % 68.2 % (16.0-70.0); PLATELET COUNT 491 TH/MM3 (150-450); RED BLOOD COUNT 4.67 MIL/MM3 (4.00-5.30); RED CELL DISTRIBUTION WIDTH 20.4 % (11.6-17.2); WHITE BLOOD COUNT 8.6 TH/MM3 (4.0-11.0)
[2016-10-05 15:05] LABS: MAGNESIUM 2.4 MG/DL (1.5-2.5)
[2016-10-05] MEDS ORDERED: METO25TA3 PO (15:08)
--- NOTE | 2016-10-05 15:13 | PD ---
HPI Chief Complaint: Abnormal Results Time Seen by Provider: 13:27 Travel History International Travel<30 days: No Contact w/Intl Traveler<30days: No Traveled to known affect area: No History of Present Illness HPI Patient 65 years old. She reports routine blood work revealed a hyperkalemia greater than 7 evidently it was confirmed and the patient was sent to the ER. She reports feeling sleepy however has no other complaint aside from her recent two-month stay in the hospital with sepsis and abdominal fistula after an abdominal herniorrhaphy surgery. She's had no palpitation or cardiopulmonary complaint. PFSH Past Medical History Hx Anticoagulant Therapy: Yes (XARELTO) Arthritis: Yes Asthma: No Autoimmune Disease: No Anxiety: No Depression: No Heart Rhythm Problems: No Cancer: No Cardiovascular Problems: No High Cholesterol: Yes Chemotherapy: No Chest Pain: No Congestive Heart Failure: No COPD: No Cerebrovascular Accident: No Diabetes: No Diminished Hearing: No Endocrine: No Gastrointestinal Disorders: Yes (bowel obstruction, diverticulosis) GERD: No Genitourinary: No Hepatitis: Yes (A in 1981) Hiatal Hernia: No Hypertension: Yes Immune Disorder: No Kidney Stones: No Medical other: Yes (toxic shock syndrome 1981) Musculoskeletal: Yes (degenerative disc disease, spinal stenosis, arthritis) Neurologic: Yes (headaches) Psychiatric: No Reproductive: No Respiratory: Yes (hx pneumonia) Migraines: No Radiation Therapy: No Renal Failure: No Seizures: Yes (September 2015 witnessed in ED.) Sickle Cell Disease: No Sleep Apnea: No Thyroid Disease: No Ulcer: No Tetanus Vaccination: < 5 Years Influenza Vaccination: Yes Menopausal: Yes : 0 Para: 0 Past Surgical History Abdominal Surgery: Yes (Colectomy with colostomy, colostomy reversal, Gastric Bypass) AICD: No Arteriovenous Shunt: No Cardiac Surgery: No Ear Surgery: No Endocrine Surgery: No Eye Surgery: No Genitourinary Surgery: No Gynecologic Surgery: No Insulin Pump: No Joint Replacement: No Oral Surgery: No Pacemaker: No Thoracic Surgery: No Other Surgery: Yes (herina repair surgery september,) Social History Alcohol Use: No Tobacco Use: No Substance Use: No Allergies-Medications (Allergen,Severity, Reaction): Coded Allergies: Penicillin (Verified Allergy, Severe, rash, 07/28/16) Reported Meds & Prescriptions Reported Meds & Active Scripts Active Senna Plus 8.6-50 mg (Sennosides-Docusate Sodium) 1 Tab Tab 2 Tab PO BID Ambien (Zolpidem Tartrate) 5 Mg Tab 5 Mg PO HS PRN Lactulose Liq (Lactulose) 10 Gm/15 Ml Soln 30 Ml PO BID Acidophilus/l-Sporogenes (Lactobacillus Acidophilus) 1 Tab Tab 1 Tab PO TID Hydrocodone-Acetaminophen 7.5-325 mg Tab 1 Tab PO Q4H PRN Furosemide 20 Mg Tab 20 Mg PO DAILY Famotidine 20 Mg Tab 20 Mg PO Q12HR Clotrimazole Anti-Fungal Topical (Clotrimazole) 1% Cream 1 Applic TOPICAL Q12HR Cathflo Activase Inj (Alteplase, Recombinant) 2 Mg Inj 2 Mg INTRACATH Q2H PRN Reported Kayexalate Liq (Sodium Polystyrene Sulfonate) 1 Pow Pow 30 Gm PO ONCE Zofran (Ondansetron HCl) 4 Mg Tab 4 Mg PO Q6HR PRN Zinc Sulfate 220 Mg Tab 220 Mg PO DAILY Ascorbic Acid 500 Mg Tab 500 Mg PO BID Pantoprazole (Pantoprazole Sodium) 40 Mg Tab 40 Mg PO BID K-Tab (Potassium Chloride) 20 Meq Tab 20 Meq PO DAILY Promethazine Inj (Promethazine HCl) 25 Mg/Ml Inj 25 Mg IM Q6H PRN Normal Saline I.v. Flush (Sodium Chloride Flush) 0.9 % Inj 10 Ml IV FLUSH DAILY One Daily-Minerals (Multiple Vitamins W/ Minerals) 1 Tab 1 Tab PO DAILY Metoprolol Tartrate 25 Mg Tab 25 Mg PO BID Duloxetine DR (Duloxetine HCl) 30 Mg Capdr 30 Mg PO DAILY Mirapex (Pramipexole Dihydrochloride) 0.5 Mg Tab 0.5 Mg PO HS Ferrous Sulfate 325 Mg Tab 325 Mg PO DAILY Oscal 500/200 D-3 (Calcium Carbonate-Vitamin D) 500-200 Mg-Unit Tab 1 Tab PO BID Review of Systems Except as stated in HPI: all other systems reviewed are Neg Genitourinary: Positive: Other (fistual abdominal wall) Physical Exam Narrative GENERAL: 65 yo F, WNWD SKIN: Warm and dry. HEAD: Atraumatic. Normocephalic. EYES: Pupils equal and round. No scleral icterus. No injection or drainage. ENT: No nasal bleeding or discharge. Mucous membranes pink and moist. NECK: Trachea midline. No JVD. CARDIOVASCULAR: Regular rate and rhythm. RESPIRATORY: No accessory muscle use. Clear to auscultation. Breath sounds equal bilaterally. GASTROINTESTINAL: Soft. There is a fistula in the left abdominal wall with stool-like debris leaking about the wound care bag. There is no significant tenderness about the abdomen. MUSCULOSKELETAL: Extremities without clubbing, cyanosis, or edema. No obvious deformities. NEUROLOGICAL: Awake and alert. No obvious cranial nerve deficits. Motor grossly within normal limits. Five out of 5 muscle strength in the arms and legs. 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 PSYCHIATRIC: Appropriate mood and affect; insight and judgment normal. Data Data Last Documented VS Vital Signs Date Time Temp Pulse Resp B/P Pulse Ox O2 Delivery O2 Flow Rate FiO2 10/05/16 16:37 97.8 94 17 98/56 98 Room Air Orders Electrocardiogram (10/05/16 13:35) Complete Blood Count With Diff (10/05/16 13:35) Magnesium (Mg) (10/05/16 13:35) Phosphorus (Po4) (10/05/16 13:35) Potassium, Serum (K) (10/05/16 16:35) Iv Access Insert/Monitor (10/05/16 13:35) Ecg Monitoring (10/05/16 13:35) Oximetry (10/05/16 13:35) Calcium Gluconate Inj (Calcium Gluconate (10/05/16 13:45) Insulin Human Regular Inj (Novolin R Inj (10/05/16 13:45) Dextrose 50% In [place]jo (Vial) Inj (D50w (Vi (10/05/16 13:45) Sodium Bicarbonate 8.4% Inj (Sodium Bica (10/05/16 13:45) Sodium Polysty Sulfate Liq (Kayexalate L (10/05/16 13:45) Basic Metabolic Panel (Bmp) (10/05/16 14:57) Acetamin-Hydrocod 325-7.5 Mg ([place] 7.5 (10/05/16 16:30) Admit Order (Ed Use Only) (10/05/16 16:50) Labs Laboratory Tests Test 10/05/16 10/05/16 13:50 15:00 White Blood Count 8.6 TH/MM3 Red Blood Count 4.67 MIL/MM3 Hemoglobin 12.8 GM/DL Hematocrit 40.1 % Mean Corpuscular Volume 85.9 FL Mean Corpuscular Hemoglobin 27.5 PG Mean Corpuscular Hemoglobin 32.0 % Concent Red Cell Distribution Width 20.4 % Platelet Count 491 TH/MM3 Mean Platelet Volume 7.3 FL Neutrophils (%) (Auto) 68.2 % Lymphocytes (%) (Auto) 22.4 % Monocytes (%) (Auto) 6.7 % Eosinophils (%) (Auto) 1.8 % Basophils (%) (Auto) 0.9 % Neutrophils # (Auto) 5.9 TH/MM3 Lymphocytes # (Auto) 1.9 TH/MM3 Monocytes # (Auto) 0.6 TH/MM3 Eosinophils # (Auto) 0.2 TH/MM3 Basophils # (Auto) 0.1 TH/MM3 CBC Comment DIFF FINAL Differential Comment Phosphorus Level 7.4 MG/DL Magnesium Level 2.4 MG/DL Sodium Level 135 MEQ/L Potassium Level 5.4 MEQ/L Chloride Level 102 MEQ/L Carbon Dioxide Level 17.6 MEQ/L Anion Gap 15 MEQ/L Blood Urea Nitrogen 78 MG/DL Creatinine 7.88 MG/DL Estimat Glomerular Filtration 5 ML/MIN Rate Random Glucose 61 MG/DL Calcium Level 10.2 MG/DL [facility] Medical Decision Making Medical Screen Exam Complete: Yes Emergency Medical Condition: Yes Medical Record Reviewed: Yes Differential Diagnosis HyperK, ESRD, arrhythmia Narrative Course The EKG reveals a sinus rhythm tachycardic at a rate of 102 no hyperkalemic EKG change CBC & BMP Diagram 10/05/16 13:50 10/05/16 15:00 Patient will be admitted 2/2 renal failure and hyperk. The case was discussed with Dr Beyer of nephrology. The case was discussed with Dr Brody of [facility] service. Wound care consult was also placed for the L abdomen fistula. Diagnosis Primary Impression: Hyperkalemia Additional Impression: Renal failure Admitting Information Admitting Physician Requests: Admit Audie Broderick MD Oct 05, 2016 15:13
[2016-10-05] MEDS ORDERED: [UNRECOGNIZED DRUG - CODE] IM (15:16)
[2016-10-05] MEDS ORDERED: ONETAB22 PO (15:16)
[2016-10-05] MEDS ORDERED: POTA1TAB4 PO (15:16)
[2016-10-05] MEDS ORDERED: NORMINJ11 IV FLUSH (15:16)
[2016-10-05] MEDS ORDERED: PANT40TA3 PO (15:19)
[2016-10-05] MEDS ORDERED: ZINC220T PO (15:21)
[2016-10-05] MEDS ORDERED: ASCO500T PO (15:21)
[2016-10-05] MEDS ORDERED: ZOFR4TAB PO (15:23)
[2016-10-05] MEDS ORDERED: KAYEPOW PO (15:28)
[2016-10-05 15:55] LABS: BICARBONATE 17.6 MEQ/L (21.0-32.0); POTASSIUM 5.4 MEQ/L (3.5-5.1)
[2016-10-05] MEDS ORDERED: ACETAMINOPHEN/HYDROcodone 325 MG/7.5 MG TAB PO ONE (16:30)
[2016-10-05] MEDS: SODIUM BICARBONATE 8.4% INJ 75 MEQ in SODIUM CHLOR 0.45% 1000 ML INJ 1,000 ML IV SCH (18:40)
[2016-10-05] MEDS ORDERED: SODIUM CHLOR 0.9% 1000 ML INJ 1,000 ML IV SCH (19:10)
--- NOTE | 2016-10-05 19:14 | HHI.HP ---
[facility] Physician Unknown Admission Diagnosis HyperK, Renal Failure Diagnoses: (1) AZALEA (acute kidney injury) Diagnosis: Principal (2) Hyperkalemia Diagnosis: Principal (3) Dehydration Diagnosis: Principal (4) Hypotension Diagnosis: Principal (5) Enterocutaneous fistula Diagnosis: Principal Travel History International Travel<30 Days: No Contact w/Intl Traveler <30 Da: No Traveled to Known Affected Are: No History of Present Illness This is a 65-year-old female with a PMH of PE on Xarelto, Entertains Fistula, Seizure Disorder, Physical Deconditioning and HTN who was sent to the ER from Rehab for eval of abnormal labs. Per review of outpatient labs, K+ >7, Creatinine 8.8. Labs here w/ creatinine 7.88, previously 0.94 on 09/23/16. K+ 5.4, repeat 5.6. On arrival, BP 90/56, HR 98, O2 sat Harms RA, Afebrile. CBC essentially unremarkable. Recent prolonged admission 07/28-09/25/16 with Fungemia , Gram Positive Septicemia s/p IV Abx/Fluconazole and PE, also known Enterocutaneous Fistula for which surgery consulted, s/p I&D and washout w/ Wound Vac Placement to fistula. D/c'd to Rehab, returns now w/ abnormal labs. Dr. Beyer consulted by ER physician, will evaluate for possible HD. S/ p Insulin/D50 in ER. Review of Systems Except as stated in HPI: all other systems reviewed are Neg ROS: 14 point review of systems otherwise negative. Past Family Social History Past Medical History PMH: PE on Xarelto, Entertains Fistula, Seizure Disorder, Physical Deconditioning and HTN Past Surgical History PAST SURGICAL HISTORY: Colectomy, Colostomy Reversal, Gastric Bypass, Hernia Repair Allergies: Coded Allergies: Penicillin (Verified Allergy, Severe, rash, 07/28/16) Family History PAST FAMILY HISTORY: Reviewed. No h/o DM or CAD Social History PAST SOCIAL HISTORY: Negative for alcohol, tobacco or drugs Physical Exam Vital Signs Vital Signs Date Time Temp Pulse Resp B/P Pulse Ox O2 Delivery O2 Flow Rate FiO2 10/05/16 17:53 98.1 96 16 98/58 99 Room Air 10/05/16 17:39 16 10/05/16 16:37 97.8 94 17 98/56 98 Room Air 10/05/16 14:43 98 16 98/56 100 Room Air 10/05/16 13:30 18 99 Room Air 10/05/16 13:30 86 17 99 Room Air 10/05/16 13:24 98.0 87 17 98/55 99 Physical Exam PE: GENERAL: Middle-aged white female in no acute distress. HEENT: PERRLA, EOMI. No scleral icterus or conjunctival pallor. No lid lag or facial droop. CARDIOVASCULAR: Regular rate and rhythm. No obvious murmurs to auscultation. No chest tenderness to palpation. RESPIRATORY: No obvious rhonchi or wheezing. Clear to auscultation. Breath sounds equal bilaterally. GASTROINTESTINAL: Abdomen soft, non-tender, nondistended. BS normal. Left abdominal fistula, no erythema, no tenderness to palpation. MUSCULOSKELETAL: Extremities without clubbing, cyanosis, or edema. No obvious deformities. NEUROLOGICAL: Awake, alert. No focal neurologic deficits. Moving both upper and lower extremities spontaneously. Laboratory Laboratory Tests Test 10/05/16 10/05/16 10/05/16 10/05/16 13:50 15:00 16:21 18:00 White Blood Count 8.6 Red Blood Count 4.67 Hemoglobin 12.8 Hematocrit 40.1 Mean Corpuscular Volume 85.9 Mean Corpuscular Hemoglobin 27.5 Mean Corpuscular Hemoglobin 32.0 Concent Red Cell Distribution Width 20.4 Platelet Count 491 Mean Platelet Volume 7.3 Neutrophils (%) (Auto) 68.2 Lymphocytes (%) (Auto) 22.4 Monocytes (%) (Auto) 6.7 Eosinophils (%) (Auto) 1.8 Basophils (%) (Auto) 0.9 Neutrophils # (Auto) 5.9 Lymphocytes # (Auto) 1.9 Monocytes # (Auto) 0.6 Eosinophils # (Auto) 0.2 Basophils # (Auto) 0.1 CBC Comment DIFF FINAL Differential Comment Phosphorus Level 7.4 Magnesium Level 2.4 Sodium Level 135 Potassium Level 5.4 5.6 Chloride Level 102 Carbon Dioxide Level 17.6 Anion Gap 15 Blood Urea Nitrogen 78 Creatinine 7.88 Estimat Glomerular Filtration 5 Rate Random Glucose 61 Calcium Level 10.2 Urine Osmolality 354 Urine Random Sodium 7 Result Diagram: 10/05/16 1350 10/05/16 1621 Assessment and Plan Problem List: (1) AZALEA (acute kidney injury) ICD Code: N17.9 Status: Acute (2) Dehydration ICD Code: E86.0 Status: Acute (3) Hyperkalemia ICD Code: E87.5 Status: Acute (4) Hypotension ICD Code: I95.9 Status: Acute (5) 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 AZALEA: sent to ER from Rehab due to abnormal labs, Creatinine 8.8, currently Creatinine 7.88, previously 0.94 on 09/23/16. Dr. Beyer consulted by ER physician, will evaluate for possible need for HD. Check U/a, check Renal U/s. IVF for hydration, repeat labs in am. 2. Hyperkalemia: Outpatient labs w/ K+ >7.7, currently 5.4, repeat 5.6, s/p Insulin/D50/Ca, will repeat labs in am. 3. Dehydration: IVF for hydration, likely related to fistula, ? increased output, measure I/O. 4. Enterocutaneous Fistula: s/p prolonged hospitalization 07/28-09/25/16 for Fungemia, Bacteremia and Fistula s/p Wound Vac by surgery. Will monitor output. Strict I/O. 5. Hypotension: BP 90's systolic. Likely due to dehydration from above. IVF , monitor BP, hold BP meds for now. 6. DVT Prophylaxis: SCD/Teds 7. Social work for d/c planning as needed. 8. Case discussed w/ ER physician at length. Physician Certification 2 Midnight Certification Type: Admission for Inpatient Services Order for Inpatient Services The services are ordered in accordance with Medicare regulations or non- Medicare payer requirements, as applicable. In the case of services not specified as inpatient-only, they are appropriately provided as inpatient services in accordance with the 2-midnight benchmark. Estimated LOS (days): 2 days is the estimated time the patient will need to remain in the hospital, assuming treatment plan goals are met and no additional complications. Post-Hospital Plan: Not yet determined Maddie Elaine MD Oct 05, 2016 19:14
[2016-10-05] MEDS ORDERED: BISACODYL 10 MG SUPP RECTAL PRN (19:15)
[2016-10-05] MEDS ORDERED: MORPHINE SULFATE 4 MG/ML INJ IV PRN (19:15)
[2016-10-05] MEDS ORDERED: ONDANSETRON HCL 4 MG/2 ML VIAL IVP PRN (19:15)
[2016-10-05] MEDS ORDERED: SODIUM CHLORIDE 0.9% FLUSH 10 ML FLUSH IV FLUSH PRN (19:15)
[2016-10-05] MEDS ORDERED: ACETAMINOPHEN 325 MG TAB PO PRN (19:15)
[2016-10-05] MEDS: METOPROLOL TARTRATE 25 MG TAB PO SCH (21:00)
[2016-10-05] MEDS: SODIUM CHLORIDE 0.9% FLUSH 10 ML FLUSH IV FLUSH SCH (21:00)
[2016-10-05] MEDS: FAMOTIDINE 20 MG TAB PO SCH (22:01)
[2016-10-05] MEDS: DOCUSATE SODIUM 50 MG/SENNA 8.6 MG TAB PO SCH (22:01)
[2016-10-05] MEDS: ASCORBIC ACID 500 MG TAB PO SCH (22:01)
[2016-10-05] MEDS: LACTULOSE SYRUP 20 GM/30 ML CUP PO SCH (22:01)
[2016-10-05] MEDS: PRAMIPEXOLE DIHYDROCHLORIDE 0.25 MG TAB PO SCH (22:02)
[2016-10-05] MEDS: PANTOPRAZOLE SOD 40 MG DELAYED RELEASE TAB PO SCH (22:05)
--- NOTE | 2016-10-05 22:49 | MB ---
cc: NICKIE BAH MD DATE OF CONSULTATION 10/05/16 REASON FOR CONSULTATION Elevated BUN and creatinine and high potassium. HISTORY OF PRESENT ILLNESS This is a 65-year-old female with a past medical history of pulmonary embolism, history of deep vein thrombosis in the left upper arm, recent history of abdominal surgery with debridement of midline wound, history of diabetes mellitus, hypertension, morbid obesity, seizure disorder and lupus who came to the hospital [facility] because of abnormal labs. I was called to see the patient because of a very high BUN and creatinine and a high potassium. The patient has been in the nursing facility since she was discharged. The last time she was admitted she had abdominal wall abscess and cellulitis versus fistula and she underwent debridement and she was discharged on September 25. Her kidney function at that time was near normal with creatinine of 0.9 to 1 and now she was transferred here with a creatinine of 7.8 and has a high potassium of more than seven in the prison. Here, the potassium was found to be 5.4. The patient claims that she has not been eating very well in the prison. She has no vomiting. She had one episode of vomiting two days ago and was having nausea off. She has no history of diarrhea, has some abdominal pain. No dysuria or hematuria, but she did notice that she has decreased urine output and the urine is dark in color. There is no known history of taking any nonsteroidal anti-inflammatory drugs. PAST MEDICAL HISTORY 1. Hyperlipidemia, 2. Hypertension, 3. Diabetes mellitus, 4. Morbid obesity, 5. History of seizure disorder, 6. History of lupus. 7. History of diverticulosis with colostomy and reversal 8. History of lupus. PAST SURGICAL HISTORY 1. Abdominal abscess post colostomy in 1999 and recent debridement of abdominal abscess 2. Gastric bypass in 2004, 3. Cholecystectomy. REVIEW OF SYSTEMS The patient has generalized weakness, feeling tired. There is no history of fever. No shortness of breath. She has decreased appetite, has nausea and vomited once two days ago. She had some abdominal pain off and on. There is no history of diarrhea. No dysuria, hematuria but she noticed that she has decreased urine output. SOCIAL HISTORY The patient is . She lives in a nursing facility, stopped smoking in 1997. ALLERGIES PENICILLIN MEDICATIONS Here she was given 1. Calcium gluconate. 2. Insulin. 3. Dextrose. 4. Sodium bicarbonate along with Kayexalate for hyperkalemia In the prison she was on 1. Ambien 2. Lactulose. 3. Hydrocodone. 4. Furosemide. 5. Clotrimazole on. 6. Potassium supplement at some point PHYSICAL EXAMINATION GENERAL: The patient is awake, alert. She is not in acute distress. VITAL SIGNS: Her last blood pressure is 98/56, blood pressure has been on the lower side, temperature 97.8, oxygen saturation on room air 98-100%. HEENT: Pupils are mid constricted. Nonicteric sclerae, conjunctivae pale. NECK: Supple. JVD is not elevated. LUNGS: The patient has bilateral decreased air entry with occasional wheezing. HEART: S1, S2. Regular rhythm. ABDOMEN: Distended. The dressing is in place and there is no discharge seen. There is no definite tenderness. Bowel sounds positive. EXTREMITIES: She has mild edema in the legs. LABORATORY DATA WBC count 8.6, hemoglobin 12.8, platelet count of 491, neutrophils 68.2. Sodium 135, potassium 5.4, chloride 102, bicarb 17.6, BUN 78, creatinine 7.8, calcium is 10.2, phosphorus 7.4. Magnesium 2.4. Urinalysis not done, but previously she had minimal to no proteinuria. IMAGING STUDIES The patient has no recent imaging study done. ASSESSMENT/PLAN 1. Acute kidney injury 2. Hyperkalemia. 3. History of hypertension and now hypotension. 4. Diabetes mellitus 5. History of pulmonary embolism. Patient has hypotension and most likely she has acute kidney injury either because of over diuresis and dehydration with possibility of ATN from the hypotension or infection. At present, her potassium is 5.4. She had potassium more than seven in the prison. Her bicarb is low. I will get Rush catheter, send the urine sodium osmolality and ultrasound of the kidneys and give her IV fluid with sodium bicarbonate. The patient will be admitted if her renal function does not improve she possibly will need dialysis. Avoid any nephrotoxins. Thank you for the consultation. The patient will be followed by Dr. Power Gonsalez over the weekend. MD STEPHANIE Art/ /5:45 PM /10:35 PM
[2016-10-05] MEDS: ZOLPIDEM TARTRATE 5 MG TAB PO PRN (22:59)
[2016-10-06] VITALS (8 sets, daily range): BP systolic 93–107; BP diastolic 51–55; PULSE 86–98; RESP 16–18; TEMP 95.3–97.9; O2SAT 96–98
[2016-10-06 02:46] LABS: BACTERIA, URINE FEW /hpf; BLOOD, URINE TRACE (NEG); COMMENT (UR) CULTURE INDICATED; CULTURE IF INDICATED CULTURE INDICATED; GLUCOSE,URINE NEG (NEG); HYALINE CAST, URINE 19 /lpf (RARE); KETONE, URINE NEG (NEG); MUCUS URINE FEW /lpf (OCC); NITRITE,URINE NEG (NEG); SQUAMOUS EPITHELIAL CELL URINE 1 /hpf (0-5); URINE COLOR YELLOW (YELLW/STRAW)
[2016-10-06] MEDS: SODIUM BICARBONATE 8.4% INJ 75 MEQ in SODIUM CHLOR 0.45% 1000 ML INJ 1,000 ML IV SCH ×2 (05:22→16:29)
[2016-10-06] MEDS: PANTOPRAZOLE SOD 40 MG DELAYED RELEASE TAB PO SCH ×2 (05:23→16:28)
[2016-10-06 06:02] LABS: AUTOMATED NEUTROPHIL # 3.7 TH/MM3 (1.8-7.7); BASOPHIL % 0.5 % (0.0-2.0); EOSINOPHIL # 0.3 TH/MM3 (0-0.4); HEMATOCRIT 37.1 % (35.0-46.0); HEMO FLAGS DIFF FINAL; LYMPH % 32.9 % (9.0-44.0); LYMPHOCYTE # 2.2 TH/MM3 (1.0-4.8); MEAN CELL VOLUME 83.3 FL (80.0-100.0); MEAN CORPUSCULAR HEMOGLOBIN 27.5 PG (27.0-34.0); NEUT % 54.6 % (16.0-70.0); PLATELET COUNT 469 TH/MM3 (150-450); RED BLOOD COUNT 4.46 MIL/MM3 (4.00-5.30); WHITE BLOOD COUNT 6.8 TH/MM3 (4.0-11.0)
[2016-10-06 06:33] LABS: ALKALINE PHOSPHATASE 202 U/L (45-117); ALT (GPT) 33 U/L (10-53); ANION GAP 15 MEQ/L (5-15); AST (GOT) 21 U/L (15-37); BLOOD UREA NITROGEN 74 MG/DL (7-18); CHLORIDE 98 MEQ/L (98-107); GLOMERULAR FILTRATION RATE 6 ML/MIN (>89); POTASSIUM 4.8 MEQ/L (3.5-5.1); SODIUM (NA) 135 MEQ/L (136-145); TOTAL BILIRUBIN ADULT 0.4 MG/DL (0.2-1.0)
[2016-10-06] MEDS: SODIUM CHLORIDE 0.9% FLUSH 10 ML FLUSH IV FLUSH SCH ×2 (08:28→20:30)
[2016-10-06] MEDS: FAMOTIDINE 20 MG TAB PO SCH ×2 (08:35→20:29)
[2016-10-06] MEDS: LACTULOSE SYRUP 20 GM/30 ML CUP PO SCH ×2 (08:35→20:30)
[2016-10-06] MEDS: ASCORBIC ACID 500 MG TAB PO SCH ×2 (08:36→20:29)
[2016-10-06] MEDS: DULoxetine HCl DR 30 MG CAP PO SCH (08:36)
[2016-10-06] MEDS: DOCUSATE SODIUM 50 MG/SENNA 8.6 MG TAB PO SCH ×2 (08:36→20:29)
[2016-10-06] MEDS: FERROUS SULFATE 325 MG (65 MG ELEMENTAL IRON) TAB PO SCH (08:36)
[2016-10-06] MEDS: METOPROLOL TARTRATE 25 MG TAB PO SCH ×2 (08:38→20:30)
--- NOTE | 2016-10-06 10:26 | RADRPT ---
EXAM DATE/TIME: 10/06/2016 08:56 [facility] COMPARISON: CT ABDOMEN & PELVIS W CONTRAST, September 12, 2016, 18:05. INDICATIONS : Increased BUN/Creatinine. MEDICAL HISTORY : Hypercholesterolemia. Hypertension. Hepatitis A. Seizure. Anticoagulant therapy, Xarelto. Bowel obstr uction. Diverticulitis. Spinal stenosis. Arthritis. SURGICAL HISTORY : Colectomy with colostomy. Gastric bypass. Left knee arthroscopy. Hernia repair. ENCOUNTER: Initial ACUITY: 1 day PAIN SCORE: 0/10 LOCATION: Bilateral flank MEASUREMENTS: RIGHT KIDNEY: Non visualized. LEFT KIDNEY: 9.4 x 5.8 x 5.8 cm FINDINGS: RIGHT KIDNEY: Right knee is not visualized. LEFT KIDNEY: Renal cortex is normal in thickness and echotexture. No hydronephrosis, stone, or mass. BLADDER: Decompressed with Rush balloon identified within the lumen. CONCLUSION: 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 The left kidney is unremarkable. The shane dder is decompressed. Gypsy Cloud MD on October 06, 2016 at 10:19 Board Certified Radiologist. This report was verified electronically.
[2016-10-06] MEDS: ACETAMINOPHEN/HYDROcodone 325 MG/5 MG TAB PO PRN ×2 (12:16→20:29)
--- NOTE | 2016-10-06 13:48 | HHI.NPPN ---
Subjective Additional Remarks Feels better today, no acute complaints Objective Data Data 10/05/16 10/06/16 19:00 07:00 Intake Total 2233 ml Output Total 400 ml 940 ml Balance -400 ml 1293 ml Intake Oral 120 ml IV Total 2113 ml Output Urine Total 400 ml 250 ml Stool Total 690 ml Vital Signs Date Time Temp Pulse Resp B/P Pulse Ox O2 Delivery O2 Flow Rate FiO2 10/06/16 12:00 96.8 92 16 99/52 98 10/06/16 08:00 95.3 91 16 98/55 98 10/06/16 04:00 96.4 86 18 99/54 97 10/06/16 02:03 87 10/06/16 00:15 96/52 10/06/16 00:00 96.5 90 18 93/51 98 10/05/16 22:04 96.7 89 18 103/45 99 10/05/16 20:02 88 18 98/54 98 Room Air 10/05/16 17:53 98.1 96 16 98/58 99 Room Air 10/05/16 17:39 16 10/05/16 16:37 97.8 94 17 98/56 98 Room Air 10/05/16 14:43 98 16 98/56 100 Room Air -: 10/06/16 0508 10/06/16 0508 Microbiology 10/06/16 Urine Culture, Received Pending Physical Exam General Appearance: Well Developed, Well Nourished, No Acute Distress Eyes Eye Exam: Pupils Equal Throat Throat Exam: Oral Mucosa Mimbres & Moist Neck Neck Exam: Neck Supple Pulmonary Resp Exam: Clear Bilaterally Cardiology CV Exam: Regular, Normal Sinus Rhythm Gastrointestinal/Abdomen GI Exam: Soft, Non-Tender, Bowel Sounds Present Integumentary Skin Exam: Clear, Warm, Dry, Intact Extremeties Extremities Exam: No Edema Neurologic Neuro Exam: Alert, Awake, Oriented Assessment/Plan Problem List: (1) AZALEA (acute kidney injury) Plan: Creatinine 0.9 on 09/23 Patient has hypotension and most likely she has acute kidney injury either because of over diuresis and dehydration with possibility of ATN from the hypotension or infection. Creatinine 7 -> 6 on IVFs, continue IVFs for now Renal ultrasound unremarkable. Right kidney not visualized, however normal CT several weeks ago. No need for dialysis at this point, volume status and electrolytes stable. Continue IVFs - 1/2 NS + 75meq NaHCO3 at 100cc/hour (2) Hyperkalemia Plan: Improving, continue to monitor. 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
--- NOTE | 2016-10-06 14:44 | EKG ---
Date Performed: 10/05/2016 Time Performed: 14:15:39 PTAGE: 65 years EKG: Sinus rhythm MARKED LEFT AXIS DEVIATION RIGHT BUNDLE BRANCH BLOCK Compared to prior tracing no significant change ABNORMAL ECG WARNING: DATA QUALITY MAY AFFECT INTERPRETATION PREVIOUS TRACING : 09/13/2016 05.05 DOCTOR: Rula Jaffe Interpretating Date/Time 10/06/2016 14:40:28
--- NOTE | 2016-10-06 17:32 | HHI.PR ---
Subjective Remarks No complaints this morning. No nausea. Renal function shows slight improvement , this was discussed with the patient. No need for acute dialysis at this point per nephrology. Objective Vital Signs Date Time Temp Pulse Resp B/P Pulse Ox O2 Delivery O2 Flow Rate FiO2 10/06/16 16:00 96.5 94 16 99/53 96 10/06/16 12:00 96.8 92 16 99/52 98 10/06/16 08:00 95.3 91 16 98/55 98 10/06/16 04:00 96.4 86 18 99/54 97 10/06/16 02:03 87 10/06/16 00:15 96/52 10/06/16 00:00 96.5 90 18 93/51 98 10/05/16 22:04 96.7 89 18 103/45 99 10/05/16 20:02 88 18 98/54 98 Room Air 10/05/16 17:53 98.1 96 16 98/58 99 Room Air 10/05/16 17:39 16 I/O 10/05/16 10/05/16 10/05/16 10/06/16 10/06/16 10/06/16 07:00 15:00 23:00 07:00 15:00 23:00 Intake Total 2233 ml 1130 ml Output Total 640 ml 700 ml 655 ml Balance -640 ml 1533 ml 475 ml Intake Oral 120 ml 240 ml IV Total 2113 ml 890 ml Output Urine Total 400 ml 250 ml 655 ml Stool Total 240 ml 450 ml # Bowel Movements 0 Result Diagram: 10/06/16 0508 10/06/16 0508 Imaging Last Impressions Renal Ultrasound 10/06/16 0000 Signed Impressions: Service Date/Time: Thursday, October 06, 2016 08:56 - CONCLUSION: 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 The left kidney is unremarkable. The bladder is decompressed. Gypsy Cloud MD Objective Remarks GENERAL: NAD, AOx3 SKIN: Warm and dry. HEAD: Atraumatic. Normocephalic. EYES: Pupils equal and round. No scleral icterus. No injection or drainage. ENT: No nasal bleeding or discharge. Mucous membranes pink and moist. NECK: Trachea midline. No JVD. CARDIOVASCULAR: Regular rate and rhythm. RESPIRATORY: No accessory muscle use. Clear to auscultation. Breath sounds equal bilaterally. GASTROINTESTINAL: Abdomen soft, non-tender, nondistended. Hepatic and splenic margins not palpable. MUSCULOSKELETAL: Extremities without clubbing, cyanosis, or edema. No obvious deformities. NEUROLOGICAL: Awake and alert. No obvious cranial nerve deficits. Motor grossly within normal limits. Five out of 5 muscle strength in the arms and legs. 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 PSYCHIATRIC: Appropriate mood and affect; insight and judgment normal. Medications and IVs Current Medications Calcium Gluconate (Calcium Gluconate Inj) 1 gm ONCE ONCE SLOW IVP Last administered on 10/05/16 14:08; Start 10/05/16 at 13:45; Stop 10/05/16 at 13:46; Status DC Insulin Human Regular (NovoLIN R INJ) 10 units ONCE ONCE IV PUSH Last administered on 10/05/16 14:08; Start 10/05/16 at 13:45; Stop 10/05/16 at 13:46; Status DC Dextrose (D50w (Vial) Inj) 50 ml ONCE ONCE IV PUSH Last administered on 14:08; Start 10/05/16 at 13:45; Stop 10/05/16 at 13:46; Status DC Sodium Bicarbonate (Sodium Bicarbonate 8.4% Inj) 50 meq ONCE ONCE SLOW IVP Last administered on 10/05/16 14:08; Start 10/05/16 at 13:45; Stop 10/05/16 at 13: 46; Status DC Sodium Polystyrene Sulfonate (Kayexalate Liq) 15 gm ONCE ONCE PO Last administered on 10/05/16 14:08; Start 10/05/16 at 13:45; Stop 10/05/16 at 13:46; Status DC Acetaminophen/ Hydrocodone Bitart 1 tab 1 tab ONCE ONCE PO Last administered on 10/05/16 16:37; Start 10/05/16 at 16:30; Stop 10/05/16 at 16:31; Status DC Sodium Bicarbonate 75 meq/Sodium Chloride 1,075 ml @ 100 mls/hr [id number] IV Last administered on 10/06/16 16:29; Start 10/05/16 at 20:00 Sodium Chloride (NS 1000 ml Inj) 1,000 ml @ 100 mls/hr Q10H IV ; Start 10/05/16 at 19:10; Stop 10/05/16 at 19:37; Status DC Sodium Chloride (NS Flush) 2 ml UNSCH PRN IV FLUSH FLUSH AFTER USING IV ACCESS ; Start 10/05/16 at 19:15 Sodium Chloride (NS Flush) 2 ml BID IV FLUSH ; Start 10/05/16 at 21:00 Ondansetron HCl (Zofran Inj) 4 mg Q6H PRN IVP NAUSEA OR VOMITING; Start at 19:15 Bisacodyl (Dulcolax Supp) 10 mg DAILY PRN RECTAL CONSTIPATION; Start 10/05/16 at 19:15 Acetaminophen (Tylenol) 650 mg Q6H PRN PO FEVER/PAIN SCALE 1 TO 2; Start at 19:15 Acetaminophen/ Hydrocodone Bitart ([place] 5-325 Mg) 1 tab Q4H PRN PO PAIN SCALE 3 TO 5 Last administered on 10/06/16 12:16; Start 10/05/16 at 19:15 Morphine Sulfate (Morphine Inj) 2 mg Q3H PRN IV Pain 6-10; Start 10/05/16 at 19: 15 Ascorbic Acid (Vitamin C) 500 mg BID PO Last administered on 10/06/16 08:36; Start 10/05/16 at 21:00 Duloxetine HCl (Cymbalta Dr) 30 mg DAILY PO Last administered on 10/06/16 08:36 ; Start 10/06/16 at 09:00 Famotidine (Pepcid) 10 mg Q12HR PO Last administered on 10/06/16 08:35; Start 10/05/16 at 21:00 Ferrous Sulfate (Ferrous Sulfate) 325 mg DAILY PO Last administered on 08:36; Start 10/06/16 at 09:00 Lactulose (Lactulose Liq) 30 ml BID PO Last administered on 10/06/16 08:35; Start 10/05/16 at 21:00 Metoprolol Tartrate (Lopressor) 25 mg BID PO ; Start 10/05/16 at 21:00 Pantoprazole Sodium (Protonix) 40 mg BIDAC PO Last administered on 10/06/16 16: 28; Start 10/05/16 at 21:00 Pramipexole Dihydrochloride (Mirapex) 0.5 mg HS PO Last administered on 22:02; Start 10/05/16 at 21:00 Senna/Docusate Sodium (Annette-Colace) 2 tab BID PO Last administered on 10/06/16 08:36; Start 10/05/16 at 21:00 Zolpidem Tartrate (Ambien) 5 mg HS PRN PO INSOMNIA Last administered on 22:59; Start 10/05/16 at 19:15 A/P Problem List: (1) ARF (acute renal failure) ICD Code: N17.9 (2) Hyperkalemia ICD Code: E87.5 (3) Dehydration ICD Code: E86.0 Assessment and Plan A/P ARF follow renal function IV Hydration Nephrology following Improving slowly thus far Hyperkalemia Improved Follow renal function Follow potassium IV Hydration to continue Dehydration Possible etiology Iv Hydration DVT Prophylaxis with SCDs given renal failure Audie Haas MD Oct 06, 2016 17:32
[2016-10-06] MEDS: PRAMIPEXOLE DIHYDROCHLORIDE 0.25 MG TAB PO SCH (20:30)
[2016-10-06] MEDS: ZOLPIDEM TARTRATE 5 MG TAB PO PRN (22:47)
[2016-10-07] VITALS (7 sets, daily range): BP systolic 99–112; BP diastolic 52–69; PULSE 81–111; RESP 16–17; TEMP 96.8–99.2; O2SAT 93–98
[2016-10-07] MEDS: SODIUM BICARBONATE 8.4% INJ 75 MEQ in SODIUM CHLOR 0.45% 1000 ML INJ 1,000 ML IV SCH (03:16)
[2016-10-07] MEDS: PANTOPRAZOLE SOD 40 MG DELAYED RELEASE TAB PO SCH ×2 (06:02→15:06)
[2016-10-07 07:58] LABS: MAGNESIUM 1.8 MG/DL (1.5-2.5); POTASSIUM 4.5 MEQ/L (3.5-5.1)
[2016-10-07] MEDS: LACTULOSE SYRUP 20 GM/30 ML CUP PO SCH ×2 (08:29→20:17)
[2016-10-07] MEDS: FAMOTIDINE 20 MG TAB PO SCH ×2 (08:30→20:17)
[2016-10-07] MEDS: DOCUSATE SODIUM 50 MG/SENNA 8.6 MG TAB PO SCH ×2 (08:30→20:18)
[2016-10-07] MEDS: ASCORBIC ACID 500 MG TAB PO SCH ×2 (08:30→20:18)
[2016-10-07] MEDS: DULoxetine HCl DR 30 MG CAP PO SCH (08:30)
[2016-10-07] MEDS: FERROUS SULFATE 325 MG (65 MG ELEMENTAL IRON) TAB PO SCH (08:30)
[2016-10-07] MEDS: SODIUM CHLORIDE 0.9% FLUSH 10 ML FLUSH IV FLUSH SCH ×2 (08:32→20:17)
[2016-10-07] MEDS: METOPROLOL TARTRATE 25 MG TAB PO SCH ×2 (09:00→20:17)
--- NOTE | 2016-10-07 10:41 | HHI.PR ---
Subjective Remarks Renal function is improved significantly today. No complaints this morning. No nausea. No pain. She feels well enough to resume PT now. Objective Vital Signs Date Time Temp Pulse Resp B/P Pulse Ox O2 Delivery O2 Flow Rate FiO2 10/07/16 08:00 97.2 93 16 102/53 96 10/07/16 04:00 96.8 81 17 112/60 98 10/07/16 00:00 97.2 87 17 104/57 98 10/06/16 20:00 97.9 98 17 107/53 98 10/06/16 20:00 93 10/06/16 16:00 96.5 94 16 99/53 96 10/06/16 12:00 96.8 92 16 99/52 98 I/O 10/06/16 10/06/16 10/06/16 10/07/16 10/07/16 10/07/16 07:00 15:00 23:00 07:00 15:00 23:00 Intake Total 2233 ml 1130 ml 815 ml 240 ml 883 ml Output Total 700 ml 655 ml 400 ml 300 ml Balance 1533 ml 475 ml 415 ml -60 ml 883 ml Intake Oral 120 ml 240 ml 240 ml 240 ml IV Total 2113 ml 890 ml 575 ml 883 ml Output Urine Total 250 ml 655 ml 400 ml 300 ml Stool Total 450 ml # Bowel Movements 0 Result Diagram: 10/06/16 0508 10/07/16 0713 Imaging Last Impressions Renal Ultrasound 10/06/16 0000 Signed Impressions: Service Date/Time: Thursday, October 06, 2016 08:56 - CONCLUSION: 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 The left kidney is unremarkable. The bladder is decompressed. Gypsy Cloud MD Objective Remarks GENERAL: NAD, AOx3 SKIN: Warm and dry. HEAD: Atraumatic. Normocephalic. EYES: Pupils equal and round. No scleral icterus. No injection or drainage. ENT: No nasal bleeding or discharge. Mucous membranes pink and moist. NECK: Trachea midline. No JVD. CARDIOVASCULAR: Regular rate and rhythm. RESPIRATORY: No accessory muscle use. Clear to auscultation. Breath sounds equal bilaterally. GASTROINTESTINAL: Abdomen soft, non-tender, nondistended. Hepatic and splenic margins not palpable. MUSCULOSKELETAL: Extremities without clubbing, cyanosis, or edema. No obvious deformities. NEUROLOGICAL: Awake and alert. No obvious cranial nerve deficits. Motor grossly within normal limits. Five out of 5 muscle strength in the arms and legs. 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 PSYCHIATRIC: Appropriate mood and affect; insight and judgment normal. Medications and IVs Administered Medications Medications (Trade) Dose Ordered Sig/Johnie Route PRN Reason Start Time Stop Time Status Last Admin Dose Admin Sodium Bicarbonate/ Sodium Chloride (Sodium Bicarbonate 8.4% Inj/1/2 NS 1000 ml Inj) 1,075 ml @ 100 mls/hr [id number] IV 10/05/16 20:00 10/07/16 03:16 Acetaminophen/ Hydrocodone Bitart ([place] 5-325 Mg) 1 tab Q4H PRN PO PAIN SCALE 3 TO 5 10/05/16 19:15 10/06/16 20:29 Ascorbic Acid (Vitamin C) 500 mg BID PO 10/05/16 21:00 10/07/16 08:30 Duloxetine HCl (Cymbalta Dr) 30 mg DAILY PO 10/06/16 09:00 10/07/16 08:30 Famotidine (Pepcid) 10 mg Q12HR PO 10/05/16 21:00 10/07/16 08:30 Ferrous Sulfate (Ferrous Sulfate) 325 mg DAILY PO 10/06/16 09:00 10/07/16 08:30 Lactulose (Lactulose Liq) 30 ml BID PO 10/05/16 21:00 10/06/16 20:30 Pantoprazole Sodium (Protonix) 40 mg BIDAC PO 10/05/16 21:00 10/07/16 06:02 Pramipexole Dihydrochloride (Mirapex) 0.5 mg HS PO 10/05/16 21:00 10/06/16 20:30 Senna/Docusate Sodium (Annette-Colace) 2 tab BID PO 10/05/16 21:00 10/07/16 08:30 Zolpidem Tartrate (Ambien) 5 mg HS PRN PO INSOMNIA 10/05/16 19:15 10/06/16 22:47 A/P Problem List: (1) ARF (acute renal failure) ICD Code: N17.9 (2) Hyperkalemia ICD Code: E87.5 (3) Dehydration ICD Code: E86.0 Assessment and Plan A/P ARF Improving follow renal function IV Hydration Nephrology following Hyperkalemia Resolved Follow renal function Follow potassium IV Hydration to continue Dehydration Resolving Possible primary etiology of ARF IV Hydration DVT Prophylaxis with SCDs given renal failure Audie Haas MD Oct 07, 2016 10:41
[2016-10-07] MEDS: ACETAMINOPHEN/HYDROcodone 325 MG/5 MG TAB PO PRN ×3 (11:00→21:25)
--- NOTE | 2016-10-07 11:56 | HHI.NPPN ---
Subjective Additional Remarks Feels better today, no acute complaints Objective Data Data 10/06/16 10/07/16 19:00 07:00 Intake Total 1130 ml 1055 ml Output Total 655 ml 700 ml Balance 475 ml 355 ml Intake Oral 240 ml 480 ml IV Total 890 ml 575 ml Output Urine Total 655 ml 700 ml # Bowel Movements 0 Vital Signs Date Time Temp Pulse Resp B/P Pulse Ox O2 Delivery O2 Flow Rate FiO2 10/07/16 08:00 97.2 93 16 102/53 96 10/07/16 04:00 96.8 81 17 112/60 98 10/07/16 00:00 97.2 87 17 104/57 98 10/06/16 20:00 97.9 98 17 107/53 98 10/06/16 20:00 93 10/06/16 16:00 96.5 94 16 99/53 96 10/06/16 12:00 96.8 92 16 99/52 98 -: 10/06/16 0508 10/07/16 0713 Physical Exam General Appearance: Well Developed, Well Nourished, No Acute Distress Eyes Eye Exam: Pupils Equal Throat Throat Exam: Oral Mucosa [place] & Moist Neck Neck Exam: Neck Supple Pulmonary Resp Exam: Clear Bilaterally Cardiology CV Exam: Regular, Normal Sinus Rhythm Gastrointestinal/Abdomen GI Exam: Soft, Non-Tender, Bowel Sounds Present Integumentary Skin Exam: Clear, Warm, Dry, Intact Extremeties Extremities Exam: No Edema Neurologic Neuro Exam: Alert, Awake, Oriented Assessment/Plan Problem List: (1) AZALEA (acute kidney injury) Plan: Creatinine 0.9 on 09/23 Patient has hypotension and most likely she has acute kidney injury either because of over diuresis and dehydration with possibility of ATN from the hypotension or infection. Creatinine 7 -> 6 -> 4on IVFs, continue IVFs for now Renal ultrasound unremarkable. Right kidney not visualized, however normal CT several weeks ago. No need for dialysis at this point, volume status and electrolytes stable. Continue IVFs will stop bicarbonate and continue NS at 100cc/hour (2) Hyperkalemia Plan: Improving, continue to monitor. 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
[2016-10-07] MEDS: SODIUM CHLOR 0.9% 1000 ML INJ 1,000 ML IV SCH ×2 (12:03→20:18)
[2016-10-07] MEDS: PRAMIPEXOLE DIHYDROCHLORIDE 0.25 MG TAB PO SCH (20:18)
[2016-10-07] MEDS: ZOLPIDEM TARTRATE 5 MG TAB PO PRN (21:25)
[2016-10-08 04:00] VITALS: BP 118/60; PULSE 82; RESP 17; TEMP 98; O2SAT 98
[2016-10-08 05:03] LABS: ALKALINE PHOSPHATASE 148 U/L (45-117); ALT (GPT) 23 U/L (10-53); ANION GAP 10 MEQ/L (5-15); AST (GOT) 22 U/L (15-37); BICARBONATE 26.8 MEQ/L (21.0-32.0); BLOOD UREA NITROGEN 46 MG/DL (7-18); CHLORIDE 102 MEQ/L (98-107); GLOMERULAR FILTRATION RATE 21 ML/MIN (>89); POTASSIUM 3.8 MEQ/L (3.5-5.1); SODIUM (NA) 139 MEQ/L (136-145); TOTAL BILIRUBIN ADULT 0.3 MG/DL (0.2-1.0)
[2016-10-08] MEDS: PANTOPRAZOLE SOD 40 MG DELAYED RELEASE TAB PO SCH ×2 (06:01→15:49)
[2016-10-08 08:00] VITALS: BP_SYST 86; BP_SYST 88; BP_DIAS 42; BP_DIAS 46; PULSE 71; RESP 16; TEMP 98; O2SAT 98
[2016-10-08] MEDS: METOPROLOL TARTRATE 25 MG TAB PO SCH ×2 (08:10→20:50)
[2016-10-08] MEDS: ASCORBIC ACID 500 MG TAB PO SCH ×2 (08:10→20:51)
[2016-10-08] MEDS: FAMOTIDINE 20 MG TAB PO SCH ×2 (08:10→20:51)
[2016-10-08] MEDS: FERROUS SULFATE 325 MG (65 MG ELEMENTAL IRON) TAB PO SCH (08:10)
[2016-10-08] MEDS: DULoxetine HCl DR 30 MG CAP PO SCH (08:10)
[2016-10-08] MEDS: SODIUM CHLOR 0.9% 1000 ML INJ 1,000 ML IV SCH ×2 (08:11→15:50)
[2016-10-08] MEDS: LACTULOSE SYRUP 20 GM/30 ML CUP PO SCH (08:11)
[2016-10-08] MEDS: SODIUM CHLORIDE 0.9% FLUSH 10 ML FLUSH IV FLUSH SCH ×2 (08:11→20:51)
[2016-10-08] MEDS: DOCUSATE SODIUM 50 MG/SENNA 8.6 MG TAB PO SCH ×2 (08:11→20:50)
--- NOTE | 2016-10-08 10:34 | HHI.PR ---
Subjective Remarks Patient reports feeling well today. Eating and drinking well. No issues overnight. Renal functions much better. Good output. Objective Vitals Vital Signs Date Time Temp Pulse Resp B/P Pulse Ox O2 Delivery O2 Flow Rate FiO2 10/08/16 08:00 98.0 71 16 86/42 98 88/46 10/08/16 04:00 98.0 82 17 118/60 98 10/07/16 20:00 96.9 91 17 103/55 98 10/07/16 19:11 96 10/07/16 16:00 99.2 96 16 100/52 98 10/07/16 12:00 98.8 111 16 99/69 93 I/O 10/07/16 10/07/16 10/07/16 10/08/16 10/08/16 10/08/16 07:00 15:00 23:00 07:00 15:00 23:00 Intake Total 240 ml 1788 ml 780 ml 950 ml Output Total 300 ml 950 ml 800 ml Balance -60 ml 838 ml 780 ml 150 ml Intake Oral 240 ml 240 ml IV Total 1788 ml 780 ml 710 ml Output Urine Total 300 ml 550 ml 600 ml Stool Total 400 ml Drainage Total 200 ml Result Diagram: 10/06/16 0508 10/08/16 0420 Imaging Last Impressions Renal Ultrasound 10/06/16 0000 Signed Impressions: Service Date/Time: Thursday, October 06, 2016 08:56 - CONCLUSION: 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 The left kidney is unremarkable. The bladder is decompressed. Gypsy Cloud MD Objective Remarks GENERAL: This is a well-nourished, well-developed patient, in no apparent distress. CARDIOVASCULAR: Normal rate and regular rhythm without murmurs, gallops, or rubs. RESPIRATORY: Good respiratory efforts. Breath sounds equal and clear to auscultation bilaterally. GASTROINTESTINAL: Abdomen soft, non-tender, non-distended. Normal active bowel sounds MUSCULOSKELETAL: Extremities without cyanosis, or edema. NEURO: Alert & Oriented x4 to person, place, time, situation. Moves all ext x4 PSYCH: Appropriate mood and affect. 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 Renal functions significantly improved. - Appreciate nephrology following. - Continue IV fluid - Avoid nephrotoxins Hyperkalemia: Secondary to above. Resolved Dehydration: Resolved with IV fluid - Encourage oral hydration. DVT Prophylaxis with SCDs Problem Qualifiers (1) Hypotension: Qualified Code: I95.9 - Hypotension, unspecified hypotension type Makayla Brody MD Oct 08, 2016 10:34
[2016-10-08 12:00] VITALS: BP 106/54; PULSE 75; RESP 16; TEMP 98.6; O2SAT 96
[2016-10-08] MEDS: ACETAMINOPHEN/HYDROcodone 325 MG/5 MG TAB PO PRN ×2 (13:43→18:43)
--- NOTE | 2016-10-08 15:25 | HHI.NPPN ---
Subjective History of Present Illness 65-year-old female with a past medical history of pulmonary embolism, history of deep vein thrombosis in the left upper arm, recent history of abdominal surgery with debridement of midline wound, history of diabetes mellitus, hypertension, morbid obesity, seizure disorder and lupus who came to the hospital sent from the senior care because of abnormal labs. I was called to see the patient because of a very high BUN and creatinine and a high potassium. Additional Remarks Patient is alert, no SOB, not eating well. Objective Data Data 10/07/16 10/08/16 19:00 07:00 Intake Total 1788 ml 1730 ml Output Total 950 ml 800 ml Balance 838 ml 930 ml Intake Oral 240 ml IV Total 1788 ml 1490 ml Output Urine Total 550 ml 600 ml Stool Total 400 ml Drainage Total 200 ml Vital Signs Date Time Temp Pulse Resp B/P Pulse Ox O2 Delivery O2 Flow Rate FiO2 10/08/16 12:00 98.6 75 16 106/54 96 10/08/16 08:00 98.0 71 16 86/42 98 88/46 10/08/16 04:00 98.0 82 17 118/60 98 10/07/16 20:00 96.9 91 17 103/55 98 10/07/16 19:11 96 10/07/16 16:00 99.2 96 16 100/52 98 -: 10/06/16 0508 10/08/16 0420 Physical Exam General Appearance: Well Developed, Well Nourished, No Acute Distress Eyes Eye Exam: Pupils Equal Throat Throat Exam: Oral Mucosa [place] & Moist Neck Neck Exam: Neck Supple Pulmonary Resp Exam: Clear Bilaterally Cardiology CV Exam: Regular, Normal Sinus Rhythm Gastrointestinal/Abdomen GI Exam: Soft, Non-Tender, Bowel Sounds Present Integumentary Skin Exam: Clear, Warm, Dry, Intact Extremeties Extremities Exam: No Edema Neurologic Neuro Exam: Alert, Awake, Oriented Assessment/Plan Problem List: (1) AZALEA (acute kidney injury) Plan: Creatinine 0.9 on 09/23 Patient has Acute kidney injury. Urine Na. was low. also has hypotension and most likely she has acute kidney injury either because of over diuresis and dehydration with possibility of ATN from the hypotension or infection. Renal ultrasound unremarkable. Right kidney not visualized, however normal CT several weeks ago. Creatinine continue to improve. K is now normal. Avoid Nephrotoxins. BP is low, decrease Metoprolol. (2) Hyperkalemia Plan: Improving, continue to monitor. (3) Hypotension Plan: Decrease Metoprolol, follow the BP. 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
[2016-10-08] MEDS ORDERED: LACTULOSE SYRUP 20 GM/30 ML CUP PO PRN (15:30)
[2016-10-08] MEDS ORDERED: PILL SPLITTER OTHER PRN (15:30)
[2016-10-08 18:33] VITALS: BP 106/52
[2016-10-08 20:00] VITALS: BP 106/62; PULSE 82; RESP 17; TEMP 98.8; O2SAT 97
[2016-10-08] MEDS: PRAMIPEXOLE DIHYDROCHLORIDE 0.25 MG TAB PO SCH (20:51)
[2016-10-08] MEDS: ZOLPIDEM TARTRATE 5 MG TAB PO PRN (22:30)
[2016-10-09] VITALS (7 sets, daily range): BP systolic 101–117; BP diastolic 52–65; PULSE 59–83; RESP 16–17; TEMP 96.9–97.8; O2SAT 95–98
[2016-10-09] MEDS: PANTOPRAZOLE SOD 40 MG DELAYED RELEASE TAB PO SCH ×2 (04:42→16:48)
[2016-10-09] MEDS: SODIUM CHLOR 0.9% 1000 ML INJ 1,000 ML IV SCH ×3 (04:48→21:10)
[2016-10-09] MEDS: ACETAMINOPHEN/HYDROcodone 325 MG/5 MG TAB PO PRN ×3 (05:08→21:06)
[2016-10-09 06:21] LABS: POTASSIUM 3.7 MEQ/L (3.5-5.1)
[2016-10-09] MEDS: DOCUSATE SODIUM 50 MG/SENNA 8.6 MG TAB PO SCH ×2 (08:10→21:07)
[2016-10-09] MEDS: ASCORBIC ACID 500 MG TAB PO SCH ×2 (08:10→21:07)
[2016-10-09] MEDS: SODIUM CHLORIDE 0.9% FLUSH 10 ML FLUSH IV FLUSH SCH ×2 (08:10→21:00)
[2016-10-09] MEDS: METOPROLOL TARTRATE 25 MG TAB PO SCH ×2 (08:10→21:00)
[2016-10-09] MEDS: FAMOTIDINE 20 MG TAB PO SCH ×2 (08:11→21:07)
[2016-10-09] MEDS: FERROUS SULFATE 325 MG (65 MG ELEMENTAL IRON) TAB PO SCH (08:11)
[2016-10-09] MEDS: DULoxetine HCl DR 30 MG CAP PO SCH (08:11)
--- NOTE | 2016-10-09 12:04 | HHI.PR ---
Subjective Remarks Patient reports she is feeling okay. Not eating much but states she is trying to drink more. Abdominal fistula put out about a liter over the past 24 hours. Objective Vitals Vital Signs Date Time Temp Pulse Resp B/P Pulse Ox O2 Delivery O2 Flow Rate FiO2 10/09/16 10:50 70 10/09/16 08:00 96.9 73 17 101/55 96 10/09/16 04:00 97.4 71 17 102/60 96 10/09/16 00:00 97.8 71 17 102/58 96 10/08/16 20:00 98.8 82 17 106/62 97 10/08/16 18:33 106/52 I/O 10/08/16 10/08/16 10/08/16 10/09/16 10/09/16 10/09/16 07:00 15:00 23:00 07:00 15:00 23:00 Intake Total 950 ml 943 ml 240 ml 1540 ml Output Total 800 ml 2850 ml 750 ml 540 ml Balance 150 ml -1907 ml -510 ml 1000 ml Intake Oral 240 ml 943 ml 240 ml 240 ml IV Total 710 ml 1300 ml Output Urine Total 600 ml 1200 ml 750 ml 300 ml Stool Total 850 ml Drainage Total 200 ml 800 ml 240 ml Result Diagram: 10/06/16 0508 10/09/16 0500 Objective Remarks GENERAL: Obese female in no apparent distress. CARDIOVASCULAR: Normal rate and regular rhythm without murmurs, gallops, or rubs. RESPIRATORY: Good respiratory efforts. Breath sounds equal and clear to auscultation bilaterally. GASTROINTESTINAL: Abdomen is large. Mid abdomen has a clean dressing. On the left side of the abdomen there is a fistula draining copious amount of green fluid. MUSCULOSKELETAL: Extremities without cyanosis, or edema. NEURO: Alert & Oriented x4 to person, place, time, situation. Moves all ext x4 PSYCH: Appropriate mood and affect. 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 Responding well with IV fluid. Renal functions significantly improved. Although her renal functions are improving with IV fluid here, I am uncertain she will do okay without IV replacement - Appreciate nephrology following. - Continue IV fluid - Avoid nephrotoxins Enterocutaneous fistula: High output. Previously seen by Dr. Velez. - Will consult general surgery to see if anything else can be done. If her output remained high, she is at risk for worsening dehydration and renal failure once we take her off the IV fluids. Hyperkalemia: Secondary to above. Resolved Dehydration: Improved with IV fluid - Encourage oral hydration. DVT Prophylaxis with SCDs Problem Qualifiers (1) Hypotension: Qualified Code: I95.9 - Hypotension, unspecified hypotension type Makayla Brody MD Oct 09, 2016 12:04
--- NOTE | 2016-10-09 16:00 | HHI.NPPN ---
Subjective History of Present Illness 65-year-old female with a past medical history of pulmonary embolism, history of deep vein thrombosis in the left upper arm, recent history of abdominal surgery with debridement of midline wound, history of diabetes mellitus, hypertension, morbid obesity, seizure disorder and lupus who came to the hospital sent from the senior care because of abnormal labs. I was called to see the patient because of a very high BUN and creatinine and a high potassium. Additional Remarks Patient is alert, still not eating well, mild abd. pain, no nausea. Objective Data Data 10/08/16 10/09/16 19:00 07:00 Intake Total 943 ml 1780 ml Output Total 2850 ml 1290 ml Balance -1907 ml 490 ml Intake Oral 943 ml 480 ml IV Total 1300 ml Output Urine Total 1200 ml 1050 ml Stool Total 850 ml Drainage Total 800 ml 240 ml Vital Signs Date Time Temp Pulse Resp B/P Pulse Ox O2 Delivery O2 Flow Rate FiO2 10/09/16 12:00 96.9 59 17 108/52 95 10/09/16 10:50 70 10/09/16 08:00 96.9 73 17 101/55 96 10/09/16 04:00 97.4 71 17 102/60 96 10/09/16 00:00 97.8 71 17 102/58 96 10/08/16 20:00 98.8 82 17 106/62 97 10/08/16 18:33 106/52 -: 10/06/16 0508 10/09/16 0500 Physical Exam General Appearance: Well Developed, Well Nourished, No Acute Distress Eyes Eye Exam: Pupils Equal Throat Throat Exam: Oral Mucosa [place] & Moist Neck Neck Exam: Neck Supple Pulmonary Resp Exam: Clear Bilaterally Cardiology CV Exam: Regular, Normal Sinus Rhythm Gastrointestinal/Abdomen GI Exam: Soft, Non-Tender, Bowel Sounds Present GI Remarks with colostomy and dressings in place. Integumentary Skin Exam: Clear, Warm, Dry, Intact Extremeties Extremities Exam: No Edema Neurologic Neuro Exam: Alert, Awake, Oriented Assessment/Plan Problem List: (1) AZALEA (acute kidney injury) Plan: Creatinine 0.9 on 09/23 Patient has Acute kidney injury. Urine Na. was low. also has hypotension and most likely she has acute kidney injury either because of over diuresis and dehydration with possibility of ATN from the hypotension or infection. Renal ultrasound unremarkable. Right kidney not visualized, however normal CT several weeks ago. Creatinine continue to improve. K is now normal. Continue IVF, follow urine out put and BMP. (2) Hyperkalemia Plan: Improving, continue to monitor. (3) Hypotension Plan: Decrease Metoprolol, follow the BP. 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
[2016-10-09] MEDS: PRAMIPEXOLE DIHYDROCHLORIDE 0.25 MG TAB PO SCH (21:07)
[2016-10-09] MEDS: ZOLPIDEM TARTRATE 5 MG TAB PO PRN (23:00)
[2016-10-10] VITALS: BP 104/62; PULSE 85; RESP 17; TEMP 97.6; O2SAT 97
[2016-10-10] MEDS: PANTOPRAZOLE SOD 40 MG DELAYED RELEASE TAB PO SCH ×2 (04:41→16:13)
[2016-10-10] MEDS ORDERED: MIDAZOLAM HCL 5 MG/ML VIAL (1 ML) IV ONE (08:00)
[2016-10-10 08:04] VITALS: BP 91/52; PULSE 79; RESP 18; TEMP 96.9; O2SAT 97
[2016-10-10] MEDS: METOPROLOL TARTRATE 25 MG TAB PO SCH ×2 (08:49→22:44)
[2016-10-10] MEDS: SODIUM CHLORIDE 0.9% FLUSH 10 ML FLUSH IV FLUSH SCH ×2 (08:50→22:45)
[2016-10-10] MEDS: FERROUS SULFATE 325 MG (65 MG ELEMENTAL IRON) TAB PO SCH (08:57)
[2016-10-10] MEDS: DULoxetine HCl DR 30 MG CAP PO SCH (08:57)
[2016-10-10] MEDS: DOCUSATE SODIUM 50 MG/SENNA 8.6 MG TAB PO SCH (08:57)
[2016-10-10] MEDS: FAMOTIDINE 20 MG TAB PO SCH ×2 (08:57→22:47)
[2016-10-10] MEDS: ASCORBIC ACID 500 MG TAB PO SCH ×2 (08:58→22:45)
[2016-10-10] MEDS: SODIUM CHLOR 0.9% 1000 ML INJ 1,000 ML IV SCH ×2 (08:59→17:39)
--- NOTE | 2016-10-10 10:21 | HHI.PR ---
Subjective Remarks Patient reports she is feeling okay. Eating and drinking well. She is having less output from the fistula. renal functions normalizing. Objective Vitals Vital Signs Date Time Temp Pulse Resp B/P Pulse Ox O2 Delivery O2 Flow Rate FiO2 10/10/16 08:04 96.9 79 18 91/52 97 10/10/16 00:00 97.6 85 17 104/62 97 10/09/16 22:06 18 10/09/16 20:00 97.8 75 17 117/65 98 10/09/16 16:00 97.6 83 16 115/60 97 10/09/16 12:00 96.9 59 17 108/52 95 10/09/16 10:50 70 I/O 10/09/16 10/09/16 10/09/16 10/10/16 10/10/16 10/10/16 07:00 15:00 23:00 07:00 15:00 23:00 Intake Total 1540 ml 2248 ml 480 ml 240 ml 1734 ml Output Total 540 ml 1000 ml 1750 ml 1550 ml 150 ml Balance 1000 ml 1248 ml -1270 ml -1310 ml 1584 ml Intake Oral 240 ml 60 ml 480 ml 240 ml IV Total 1300 ml 2188 ml 1734 ml Output Urine Total 300 ml 650 ml 550 ml 650 ml Stool Total 1200 ml 900 ml 150 ml Drainage Total 240 ml 350 ml # Voids 0 Result Diagram: 10/06/16 0508 10/09/16 0500 Objective Remarks GENERAL: Obese female in no apparent distress. CARDIOVASCULAR: Normal rate and regular rhythm without murmurs, gallops, or rubs. RESPIRATORY: Good respiratory efforts. Breath sounds equal and clear to auscultation bilaterally. GASTROINTESTINAL: Abdomen is large. Mid abdomen has a clean dressing. On the left side of the abdomen there is a fistula draining copious amount of green fluid. MUSCULOSKELETAL: Extremities without cyanosis, or edema. NEURO: Alert & Oriented x4 to person, place, time, situation. Moves all ext x4 PSYCH: Appropriate mood and affect. 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 Responding well with IV fluid. Renal functions significantly improved. - Renal functions normalized. DC IVF, monitor I/O and labs. - Avoid nephrotoxins Enterocutaneous fistula: High output. Previously seen by Dr. Velez. -Appreciate general surgery following. Patient has been started on Lomotil. Hyperkalemia: Secondary to above. Resolved Dehydration: Resolved - Encourage oral hydration. DVT Prophylaxis with SCDs Problem Qualifiers (1) Hypotension: Qualified Code: I95.9 - Hypotension, unspecified hypotension type Makayla Brody MD Oct 10, 2016 10:21 (1) Hypotension: Qualified Code: I95.9 - Hypotension, unspecified hypotension type Makayla Brody MD Oct 10, 2016 10:21
[2016-10-10 11:21] VITALS: BP 103/53; PULSE 87; RESP 18; TEMP 97.8; O2SAT 97
[2016-10-10 13:22] LABS: HEMATOCRIT 32.8 % (35.0-46.0); MEAN CELL VOLUME 87.4 FL (80.0-100.0); MEAN CORPUSCULAR HEMOGLOBIN 27.8 PG (27.0-34.0); MEAN CORPUSCULAR HGB CONC 31.8 % (32.0-36.0); PLATELET COUNT 282 TH/MM3 (150-450); RED BLOOD COUNT 3.75 MIL/MM3 (4.00-5.30); RED CELL DISTRIBUTION WIDTH 20.1 % (11.6-17.2); REVIEW FLAG FINAL; WHITE BLOOD COUNT 7.1 TH/MM3 (4.0-11.0)
[2016-10-10 13:43] LABS: BICARBONATE 21.8 MEQ/L (21.0-32.0)
[2016-10-10 16:00] VITALS: BP 130/67; PULSE 103; RESP 16; TEMP 98.5; O2SAT 98
[2016-10-10] MEDS: ACETAMINOPHEN/HYDROcodone 325 MG/5 MG TAB PO PRN ×2 (16:13→22:47)
--- NOTE | 2016-10-10 16:45 | HHI.NPPN ---
Subjective History of Present Illness 65-year-old female with a past medical history of pulmonary embolism, history of deep vein thrombosis in the left upper arm, recent history of abdominal surgery with debridement of midline wound, history of diabetes mellitus, hypertension, morbid obesity, seizure disorder and lupus who came to the hospital sent from the halfway because of abnormal labs. I was called to see the patient because of a very high BUN and creatinine and a high potassium. Additional Remarks Patient is alert, now started eating better, no SOB. Objective Data Data 10/09/16 10/10/16 19:00 07:00 Intake Total 2248 ml 720 ml Output Total 1000 ml 3300 ml Balance 1248 ml -2580 ml Intake Oral 60 ml 720 ml IV Total 2188 ml Output Urine Total 650 ml 1200 ml Stool Total 2100 ml Drainage Total 350 ml # Voids 0 Vital Signs Date Time Temp Pulse Resp B/P Pulse Ox O2 Delivery O2 Flow Rate FiO2 10/10/16 16:00 98.5 103 16 130/67 98 10/10/16 11:21 97.8 87 18 103/53 97 10/10/16 08:04 96.9 79 18 91/52 97 10/10/16 00:00 97.6 85 17 104/62 97 10/09/16 22:06 18 10/09/16 20:00 97.8 75 17 117/65 98 -: 10/10/16 1213 10/10/16 1213 Physical Exam General Appearance: Well Developed, Well Nourished, No Acute Distress Eyes Eye Exam: Pupils Equal Throat Throat Exam: Oral Mucosa [place] & Moist Neck Neck Exam: Neck Supple Pulmonary Resp Exam: Clear Bilaterally Cardiology CV Exam: Regular, Normal Sinus Rhythm Gastrointestinal/Abdomen GI Exam: Soft, Non-Tender, Bowel Sounds Present GI Remarks with colostomy and dressings in place. Integumentary Skin Exam: Clear, Warm, Dry, Intact Extremeties Extremities Exam: No Edema Neurologic Neuro Exam: Alert, Awake, Oriented Assessment/Plan Problem List: (1) AZALEA (acute kidney injury) Plan: Creatinine 0.9 on 09/23 Patient has Acute kidney injury. Urine Na. was low. also has hypotension and most likely she has acute kidney injury either because of over diuresis and dehydration with possibility of ATN from the hypotension or infection. Renal ultrasound unremarkable. Right kidney not visualized, however normal CT several weeks ago. Creatinine continue to improve. Now normalized. I will sign off from Nephrology, call again if needed. (2) Hyperkalemia Plan: Improving, continue to monitor. (3) Hypotension Plan: Decrease Metoprolol, follow the BP. (4) Enterocutaneous fistula Plan: stable (5) DM (diabetes mellitus) Plan: continue to monitor Problem Qualifiers (1) Hypotension: Qualified Code: I95.9 - Hypotension, unspecified hypotension type (2) DM (diabetes mellitus): Qualified Code: E13.22 - Other specified diabetes mellitus with diabetic chronic kidney disease, unspecified CKD stage, unspecified group home insulin use status Sandra Beyer MD Oct 10, 2016 16:45
[2016-10-10 20:00] VITALS: BP 116/55; PULSE 108; PULSE 96; RESP 20; TEMP 97.3; O2SAT 95
--- NOTE | 2016-10-10 21:36 | MB ---
cc: LANDRY MCNEIL M.D. DATE OF CONSULTATION 10/10/2016 REASON FOR CONSULTATION Assist in management of small bowel fistula, with high output. Dehydration. Skin wound, renal insufficiency. HISTORY This is a well-known female patient who had some surgery up in [place] for attempted closure of a large abdominal hernia. This as complicated with a wound infection, small bowel fistula, that has been treated conservatively in healing. She was in a rehabilitation center when it was noted that her creatinine was markedly elevated and her potassium was very high. She was admitted to the hospital. she was given Kayexalate for high K+ The medical team has been treating her. She has had renal involved as well. She has been hydrated up and is feeling much better. Surgery was consulted for assistance and management of the cutaneous fistula. PAST MEDICAL HISTORY All documented in the chart and will not be repeated. Central to this admission is her morbid obesity and the attempt at hernia repair in [place], complicated with wound infection, small bowel fistula, treated conservatively. REVIEW OF SYSTEMS At this point she is feeling much better than when she came in. She is eating a regular diet, does not really have any complaints, minimal discomfort at her fistula site. MEDICATIONS The medications are in [facility] and reviewed. PHYSICAL EXAMINATION She is sitting up in the bed, morbidly obese. She appears happy. She is on some IV fluids. Chest: Clear. Heart: Regular rate. Abdomen: Morbidly obese with an ostomy appliance, two small bowel fistulas in the left lower quadrant. Her midline wound is bandaged with good healing properties. LABORATORY DATA When she came into the hospital, her creatinine was 7.88 with a potassium of 5.6. Subsequently the potassium was 4. Her creatinine is 0.9 with hydration, and she feels much better. Microbiology shows Klebsiella in her urine that was reported. ASSESSMENT Morbidly obese 65-year-old female with a small bowel fistula left lower quadrant with a healing wound from the wound infection. Her hyperkalemia and elevated creatinine from dehydration and UTI appears to be treated. output increased with Kayexalate. PLAN I would continue fluid management and I added some Imodium to slow her output out some. I have added Bactrim to treat her urinary tract infection with Klebsiella. I will follow her during this admission. MD NOAM Romero/BECKY /5:32 PM /8:58 PM MTDD
[2016-10-10] MEDS: SULFAMETHOXAZOLE-TRIMETHOPRIM DS 800-160 MG TAB PO SCH (22:44)
[2016-10-10] MEDS: PRAMIPEXOLE DIHYDROCHLORIDE 0.25 MG TAB PO SCH (22:45)
[2016-10-10] MEDS: DIPHENOXYLATE/ATROPINE 2.5 MG/0.025 MG TAB PO SCH (22:45)
[2016-10-10] MEDS: ZOLPIDEM TARTRATE 5 MG TAB PO PRN (22:45)
[2016-10-11 00:18] VITALS: BP 121/58; PULSE 88; RESP 19; TEMP 97.6; O2SAT 96
[2016-10-11 04:00] VITALS: BP 118/58; PULSE 71; RESP 21; TEMP 96.2; O2SAT 96
[2016-10-11 05:09] LABS: HEMATOCRIT 32.9 % (35.0-46.0); MEAN CORPUSCULAR HEMOGLOBIN 27.7 PG (27.0-34.0); MEAN CORPUSCULAR HGB CONC 32.2 % (32.0-36.0); PLATELET COUNT 268 TH/MM3 (150-450); RED BLOOD COUNT 3.83 MIL/MM3 (4.00-5.30); RED CELL DISTRIBUTION WIDTH 20.5 % (11.6-17.2); REVIEW FLAG FINAL; WHITE BLOOD COUNT 6.4 TH/MM3 (4.0-11.0)
[2016-10-11 05:35] LABS: BICARBONATE 23.1 MEQ/L (21.0-32.0); POTASSIUM 3.5 MEQ/L (3.5-5.1)
[2016-10-11] MEDS: PANTOPRAZOLE SOD 40 MG DELAYED RELEASE TAB PO SCH (06:23)
[2016-10-11 08:00] VITALS: BP 118/56; PULSE 69; RESP 19; TEMP 97.3; O2SAT 100
[2016-10-11] MEDS: FAMOTIDINE 20 MG TAB PO SCH (08:40)
[2016-10-11] MEDS: METOPROLOL TARTRATE 25 MG TAB PO SCH (08:40)
[2016-10-11] MEDS: DULoxetine HCl DR 30 MG CAP PO SCH (08:40)
[2016-10-11] MEDS: ASCORBIC ACID 500 MG TAB PO SCH (08:41)
[2016-10-11] MEDS: FERROUS SULFATE 325 MG (65 MG ELEMENTAL IRON) TAB PO SCH (08:42)
[2016-10-11] MEDS: SULFAMETHOXAZOLE-TRIMETHOPRIM DS 800-160 MG TAB PO SCH (08:42)
[2016-10-11] MEDS: SODIUM CHLORIDE 0.9% FLUSH 10 ML FLUSH IV FLUSH SCH (08:43)
[2016-10-11] MEDS: DIPHENOXYLATE/ATROPINE 2.5 MG/0.025 MG TAB PO SCH (08:44)
[2016-10-11] MEDS: ACETAMINOPHEN/HYDROcodone 325 MG/5 MG TAB PO PRN (08:47)
[2016-10-11] MEDS ORDERED: BISA10R RECTAL (09:46)
[2016-10-11] MEDS ORDERED: DIPH2.5T14 PO (09:46)
[2016-10-11] MEDS ORDERED: HYDR-3580 PO (09:46)
[2016-10-11] MEDS ORDERED: BACT800T5 PO (09:47)
--- NOTE | 2016-10-11 09:48 | HHI.DS ---
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 Per review of outpatient labs, K+ >7, Creatinine 8.8. Labs here w/ creatinine 7.88, previously 0.94 on 09/23/16. K+ 5.4, repeat 5.6. On arrival, BP 90/56, HR 98, O2 sat Harms RA, Afebrile. CBC essentially unremarkable. Recent prolonged admission 07/28-09/25/16 with Fungemia , Gram Positive Septicemia s/p IV Abx/Fluconazole and PE, also known Enterocutaneous Fistula for which surgery consulted, s/p I&D and washout w/ Wound Vac Placement to fistula. D/c'd to Rehab, returns now w/ abnormal labs. Dr. Beyer consulted by ER physician, will evaluate for possible HD. S/ p Insulin/D50 in ER. CBC/BMP: 10/11/16 0345 10/11/16 0345 Significant Findings Laboratory Tests Test 10/09/16 10/10/16 10/11/16 05:00 12:13 03:45 Blood Urea Nitrogen 27 MG/DL (7-18) Creatinine 1.34 MG/DL (0.50-1.00) Estimat Glomerular Filtration 40 ML/MIN (>89) 60 ML/MIN (>89) 60 ML/MIN (>89) Rate Calcium Level 8.1 MG/DL 8.3 MG/DL 8.0 MG/DL (8.5-10.1) (8.5-10.1) (8.5-10.1) Red Blood Count 3.75 MIL/MM3 3.83 MIL/MM3 (4.00-5.30) (4.00-5.30) Hemoglobin 10.4 GM/DL 10.6 GM/DL (11.6-15.3) (11.6-15.3) Hematocrit 32.8 % 32.9 % (35.0-46.0) (35.0-46.0) Mean Corpuscular Hemoglobin 31.8 % Concent (32.0-36.0) Red Cell Distribution Width 20.1 % 20.5 % (11.6-17.2) (11.6-17.2) Chloride Level 110 MEQ/L 112 MEQ/L (98-107) (98-107) Imaging Last Impressions Renal Ultrasound 10/06/16 0000 Signed Impressions: Service Date/Time: Thursday, October 06, 2016 08:56 - CONCLUSION: 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 The left kidney is unremarkable. The bladder is decompressed. Gypsy Cloud MD PE at Discharge GENERAL: Obese female in no apparent distress. CARDIOVASCULAR: Normal rate and regular rhythm without murmurs, gallops, or rubs. RESPIRATORY: Good respiratory efforts. Breath sounds equal and clear to auscultation bilaterally. GASTROINTESTINAL: Abdomen is large. Mid abdomen has a clean dressing. On the left side of the abdomen there is a fistula draining copious amount of green fluid. MUSCULOSKELETAL: Extremities without cyanosis, or edema. NEURO: Alert & Oriented x4 to person, place, time, situation. Moves all ext x4 PSYCH: Appropriate mood and affect. Pt update on day of discharge Patient reports she is feeling great. She is sitting up in the chair. We discussed discharge planning at length. All of her questions were answered. Hospital Course 65-year-old female with acute renal failure. Evaluation and treatment course detailed below: Acute renal failure likely secondary to over diuresis and dehydration: Patient has an enterocutaneous fistula that is draining quite a bit and probably contributing to her dehydration. She responded very well with IV fluid. Her renal function normalized. She was followed by nephrology in the hospital. The patient is to remain hydrated. She understand her risk of dehydration given the ostomy loss of fluid. Enterocutaneous fistula: High output. Patient was seen by Dr. Velez. She was started on Lomotil which seemed to help with the output. Patient is discharged on the same to be used as needed for high output. Hyperkalemia: Secondary to above. Resolved Dehydration: Resolved - Encourage oral hydration. Pt Condition on Discharge: Good Discharge Disposition: Discharge to SNF Discharge Time: > 30 minutes Discharge Instructions DIET: Follow Instructions for: Heart Healthy Diet Activities you can perform: Regular-No Restrictions Follow up Referrals: PCP Follow-up - 1 Week SNF/[facility]/ with [facility] New Medications: Bisacodyl Supp (Bisac-Evac Supp) 10 Mg Supp 10 MG RECTAL DAILY PRN CONSTIPATION #30 Diphenoxylate-Atropine (Diphenoxylate-Atropine) 2.5-0.025 Mg Tab 1 TAB PO BID PRN Fistula output>400 ml/day #20 TAB Sulfamethoxazole-Trimethoprim (Bactrim DS) 800-160 Mg Tab 1 TAB PO Q12HR #8 TAB Continued Medications: Alteplase Inj (Cathflo Activase Inj) 2 Mg Inj 2 MG INTRACATH Q2H PRN OCCLUDED CATHETER #30 Ref 0 INJECTION Ascorbic Acid (Ascorbic Acid) 500 Mg Tab 500 MG PO BID WOUND HEALING TAB Calcium Carbonate-Vitamin D (Oscal 500/200 D-3) 500-200 Mg-Unit Tab 1 TAB PO BID Calcium Supplement Ref 0 TAB Clotrimazole Topical (Clotrimazole Anti-Fungal Topical) 1% Cream 1 APPLIC TOPICAL Q12HR #1 Ref [address] (Duloxetine DR) 30 Mg Capdr 30 MG PO DAILY #30 Ref 0 CAP Famotidine (Famotidine) 20 Mg Tab 20 MG PO Q12HR #60 Ref 0 TAB Ferrous Sulfate (Ferrous Sulfate) 325 Mg Tab 325 MG PO DAILY Nutritional Supplement #30 Ref 0 TAB Hydrocodone-Acetaminophen (Hydrocodone-Acetaminophen) 7.5-325 mg Tab 1 TAB PO Q4H PRN PAIN SCALE 6 TO 10 #30 Ref 0 TAB (This prescription has been renewed) Lactobacillus Acidophilus (Acidophilus/l-Sporogenes) 1 Tab Tab 1 TAB PO TID #90 Ref 0 TAB Metoprolol Tartrate (Metoprolol Tartrate) 25 Mg Tab 25 MG PO BID HTN #60 Ref 0 TAB Multiple Vitamins W/ Minerals (One Daily-Minerals) 1 Tab 1 TAB PO DAILY WOUND HEALING #100 Ref 0 TAB Ondansetron (Zofran) 4 Mg Tab 4 MG PO Q6HR PRN NAUSEA OR VOMITING Ref 0 TAB Pantoprazole (Pantoprazole) 40 Mg Tab 40 MG PO BID GASTRITIS ADB PAIN #30 Ref 0 TAB Pramipexole (Mirapex) 0.5 Mg Tab 0.5 MG PO HS MUSCLE WEAKNESS #30 TAB Promethazine Inj (Promethazine Inj) 25 Mg/Ml Inj 25 MG IM Q6H PRN NAUSEA OR VOMITING VIAL Sodium Chloride Flush (Normal Saline I.v. Flush) 0.9 % Inj 10 ML IV FLUSH DAILY PREVENTATIVE MEASURES Zinc Sulfate (Zinc Sulfate) 220 Mg Tab 220 MG PO DAILY WOUND HEALING Ref 0 TAB Zolpidem (Ambien) 5 Mg Tab 5 MG PO HS PRN INSOMNIA #20 Ref 0 TAB Discontinued Medications: Furosemide (Furosemide) 20 Mg Tab 20 MG PO DAILY #30 Ref 0 TAB Lactulose Liq (Lactulose Liq) 10 Gm/15 Ml Soln 30 ML PO BID #180 ML Potassium Chloride ER (K-Tab) 20 Meq Tab 20 MEQ PO DAILY HTN #30 Ref 0 TAB Sennosides-Docusate Sodium (Senna Plus 8.6-50 mg) 1 Tab Tab 2 TAB PO BID #120 Ref 0 TAB Sodium Polystyrene Sulfonate Liq (Kayexalate Liq) 1 Pow Pow 30 GM PO ONCE HYPERKALEMIA Ref 0 BOTTLE Makayla Brody MD Oct 11, 2016 09:48
--- NOTE | 2016-10-11 10:07 | HHI.PR ---
Subjective Subjective Notes DAILY PROGRESS NOTE FOR SURGICAL ATTENDING, DR. LANDRY VELEZ Up to chair Ready to go back to rehab Objective Vitals/I&O Vital Signs Date Time Temp Pulse Resp B/P Pulse Ox O2 Delivery O2 Flow Rate FiO2 10/11/16 08:00 97.3 69 19 118/56 100 Labs Laboratory Tests Test 10/10/16 10/11/16 12:13 03:45 White Blood Count 7.1 6.4 Red Blood Count 3.75 3.83 Hemoglobin 10.4 10.6 Hematocrit 32.8 32.9 Mean Corpuscular Volume 87.4 86.0 Mean Corpuscular Hemoglobin 27.8 27.7 Mean Corpuscular Hemoglobin 31.8 32.2 Concent Red Cell Distribution Width 20.1 20.5 Platelet Count 282 268 Mean Platelet Volume 7.1 7.2 Sodium Level 142 143 Potassium Level 4.0 3.5 Chloride Level 110 112 Carbon Dioxide Level 21.8 23.1 Anion Gap 10 8 Blood Urea Nitrogen 12 8 Creatinine 0.93 0.93 Estimat Glomerular Filtration 60 60 Rate Random Glucose 106 74 Calcium Level 8.3 8.0 Cardiovascular: Regular Lungs: Clear Abdomen: Other (midline wound with small amount of drainage--- dressing changed ; ostomy appliance in place over two small bowel fistulas ) Extremities: No edema A/P Assessment and Plan 65 year old female with two small bowel fistulas with high output; dehydration and ARF -Make sure adequate hydration -Imodium as needed -OOB -Okay to return to rehab -Follow up with Dr. Velez when home from rehab Attending Statement NOTE FOR SURGICAL ATTENDING, DR. LADNRY VELEZ I agree with above assessment and plan. The exam, history, and the medical decision-making described in the above note were completed with the assistance of the mid-level provider. I reviewed and agree with the findings presented. I attest that I had a [id number] encounter with the patient on the same day, and personally performed and documented my assessment and findings in the medical record. The following services were provided during this hospital visit: Chart data review, vital sign assessments/reviewing monitor data Review of consultations notes if present. Medication orders/review and/or management Ordering and/or reviewing lab tests Ordering and/or interpreting/reviewing x-rays and/or diagnostic studies Care of the patient and discussion of the patient with the care team Documentation time To help prompt me to consider important information that might be impacting today's encounter and assessment, information from prior notes written by myself or my colleagues may have been "brought forward/copy and pasted" into today's note. Arabella Pickering Oct 11, 2016 10:07 Landry Velez MD Oct 11, 2016 19:39
== END 2016-10-11 12:26 | DRG 683 ==
LOC: NEPC 13:22 → NEDA 16:52 → N07B 20:46
PROVIDERS: ADMIT Family Medicine; ATTEND Family Medicine
DX: N17.9 Acute kidney failure, unspecified (principal); K63.2 Fistula of intestine; I95.9 Hypotension, unspecified; E87.5 Hyperkalemia; E66.01 Morbid (severe) obesity due to excess calories; N39.0 Urinary tract infection, site not specified; E86.0 Dehydration; Z68.39 Body mass index [BMI] 39.0-39.9, adult; B96.1 Klebsiella pneumoniae [K. pneumoniae] as the cause of diseases classified elsewhere; Z86.711 Personal history of pulmonary embolism; Z86.718 Personal history of other venous thrombosis and embolism; Z79.02 Long term (current) use of antithrombotics/antiplatelets; G40.909 Epilepsy, unspecified, not intractable, without status epilepticus; E11.9 Type 2 diabetes mellitus without complications; I10 Essential (primary) hypertension; Z98.84 Bariatric surgery status; Z87.891 Personal history of nicotine dependence
CPT/HCPCS: 76775; 80048; 80053; 81001; 83735; 83935; 84100; 84132; 84300; 85025; 85027; 87077; 87086; 87186; 93005; 96374; 96375; J0610; J1815; J2405; J7030

== ENCOUNTER 2016-10-25 23:44 | Inpatient (IN) | payer MEDICARE ==
[~2016-10-25] VITALS: Ht 154.9 cm; Wt 97.0 kg
[~2016-10-25 23:44] MED LIST changes: +ASCO500T PO; +BACT800T5 PO; +BISA10R RECTAL; +DIPH2.5T14 PO; -FLUC200T2 PO; -FURO20TA PO; -LACT10SO PO; +METO25TA3 PO; -MIRA0.25 PO; +NORMINJ11 IV FLUSH; +ONETAB22 PO; +PANT40TA3 PO; -SENN1TAB PO; +ZINC220T PO; +ZOFR4TAB PO; +[UNRECOGNIZED DRUG - CODE] IM
[2016-10-25 23:47] VITALS: BP 96/51; PULSE 123; RESP 18; TEMP 98.8; O2SAT 97
[2016-10-26] VITALS (12 sets, daily range): BP systolic 74–119; BP diastolic 38–62; PULSE 78–104; RESP 16–20; TEMP 97.4–98.4; O2SAT 97–100
--- NOTE | 2016-10-26 00:06 | PD ---
HPI Chief Complaint: Dizziness Time Seen by Provider: 00:00 Travel History International Travel<30 days: No Contact w/Intl Traveler<30days: No Traveled to known affect area: No History of Present Illness HPI 65yo F with PMH of PE on xarelto, fistula, multiple abdominal surgeries, seizure , HTN, lupus, presents to the ED with c/o generalized weakness since yesterday. States she has been feeling so weak she cant even walk with her walker. Denies any fever, chest pain, sob, n/v, abdominal pain, new focal weakness or numbness. Pt was admitted 10/05/16-10/11/16 for AZALEA and hyperkalemia. PFSH Past Medical History Hx Anticoagulant Therapy: Yes (XARELTO) Arthritis: Yes Asthma: No Autoimmune Disease: No Anxiety: No Depression: No Heart Rhythm Problems: No Cancer: No Cardiovascular Problems: No High Cholesterol: Yes Chemotherapy: No Chest Pain: No Congestive Heart Failure: No COPD: No Cerebrovascular Accident: No Diabetes: No Diminished Hearing: No Endocrine: No Gastrointestinal Disorders: Yes (bowel obstruction, diverticulosis) GERD: No Genitourinary: No Hepatitis: Yes (A in 1981) Hiatal Hernia: No Hypertension: Yes Immune Disorder: No Kidney Stones: No Medical other: Yes (toxic shock syndrome 1981) Musculoskeletal: Yes (degenerative disc disease, spinal stenosis, arthritis) Neurologic: Yes (headaches) Psychiatric: No Reproductive: No Respiratory: Yes (hx pneumonia) Migraines: No Radiation Therapy: No Renal Failure: No Seizures: Yes (September 2015 witnessed in ED.) Sickle Cell Disease: No Sleep Apnea: No Thyroid Disease: No Ulcer: No Tetanus Vaccination: < 5 Years Menopausal: Yes : 0 Para: 0 Past Surgical History Abdominal Surgery: Yes (Colectomy with colostomy, colostomy reversal, Gastric Bypass) AICD: No Arteriovenous Shunt: No Cardiac Surgery: No Ear Surgery: No Endocrine Surgery: No Eye Surgery: No Genitourinary Surgery: No Gynecologic Surgery: No Insulin Pump: No Joint Replacement: No Oral Surgery: No Pacemaker: No Thoracic Surgery: No Other Surgery: Yes (herina repair surgery september,) Social History Alcohol Use: No Tobacco Use: No Substance Use: No Allergies-Medications (Allergen,Severity, Reaction): Coded Allergies: Penicillin (Verified Allergy, Severe, rash, 10/25/16) Reported Meds & Prescriptions Reported Meds & Active Scripts Active Bactrim DS (Sulfamethoxazole-Trimethoprim) 800-160 Mg Tab 1 Tab PO Q12HR Diphenoxylate-Atropine 2.5-0.025 Mg Tab 1 Tab PO BID PRN Bisac-Evac Supp (Bisacodyl) 10 Mg Supp 10 Mg RECTAL DAILY PRN Hydrocodone-Acetaminophen 7.5-325 mg Tab 1 Tab PO Q4H PRN Ambien (Zolpidem Tartrate) 5 Mg Tab 5 Mg PO HS PRN Acidophilus/l-Sporogenes (Lactobacillus Acidophilus) 1 Tab Tab 1 Tab PO TID Famotidine 20 Mg Tab 20 Mg PO Q12HR Clotrimazole Anti-Fungal Topical (Clotrimazole) 1% Cream 1 Applic TOPICAL Q12HR Cathflo Activase Inj (Alteplase, Recombinant) 2 Mg Inj 2 Mg INTRACATH Q2H PRN Reported Zofran (Ondansetron HCl) 4 Mg Tab 4 Mg PO Q6HR PRN Zinc Sulfate 220 Mg Tab 220 Mg PO DAILY Ascorbic Acid 500 Mg Tab 500 Mg PO BID Pantoprazole (Pantoprazole Sodium) 40 Mg Tab 40 Mg PO BID Promethazine Inj (Promethazine HCl) 25 Mg/Ml Inj 25 Mg IM Q6H PRN Normal Saline I.v. Flush (Sodium Chloride Flush) 0.9 % Inj 10 Ml IV FLUSH DAILY One Daily-Minerals (Multiple Vitamins W/ Minerals) 1 Tab 1 Tab PO DAILY Metoprolol Tartrate 25 Mg Tab 25 Mg PO BID Duloxetine DR (Duloxetine HCl) 30 Mg Capdr 30 Mg PO DAILY Mirapex (Pramipexole Dihydrochloride) 0.5 Mg Tab 0.5 Mg PO HS Ferrous Sulfate 325 Mg Tab 325 Mg PO DAILY Oscal 500/200 D-3 (Calcium Carbonate-Vitamin D) 500-200 Mg-Unit Tab 1 Tab PO BID Review of Systems Except as stated in HPI: all other systems reviewed are Neg Physical Exam Narrative GENERAL: 65yo F not in distress. SKIN: Focused skin assessment warm/dry. HEAD: Atraumatic. Normocephalic. EYES: Pupils equal and round. No scleral icterus. No injection or drainage. ENT: No nasal bleeding or discharge. Mucous membranes pink and moist. NECK: Trachea midline. No JVD. CARDIOVASCULAR: Regular rate and rhythm. No murmur appreciated. RESPIRATORY: No accessory muscle use. Clear to auscultation. Breath sounds equal bilaterally. GASTROINTESTINAL: Abdomen soft, non-tender, nondistended. MUSCULOSKELETAL: No obvious deformities. No clubbing. No cyanosis. No edema. NEUROLOGICAL: Awake and alert. No obvious cranial nerve deficits. Motor grossly within normal limits. 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 PSYCHIATRIC: Appropriate mood and affect; insight and judgment normal. Data Data Last Documented VS Vital Signs Date Time Temp Pulse Resp B/P Pulse Ox O2 Delivery O2 Flow Rate FiO2 10/25/16 23:50 125 18 98 Room Air 10/25/16 23:47 98.8 96/51 Orders Electrocardiogram (10/26/16 00:02) Complete Blood Count With Diff (10/26/16 00:02) Comprehensive Metabolic Panel (10/26/16 00:02) Magnesium (Mg) (10/26/16 00:02) B-Type Natriuretic Peptide (10/26/16 00:02) Ckmb (Isoenzyme) Profile (10/26/16 00:02) Troponin I (10/26/16 00:02) Act Partial Throm Time (Ptt) (10/26/16 00:02) Prothrombin Time / Inr (Pt) (10/26/16 00:02) Urinalysis - C+S If Indicated (10/26/16 00:02) Ecg Monitoring (10/26/16 00:02) Iv Access Insert/Monitor (10/26/16 00:02) Oximetry (10/26/16 00:02) Sodium Chloride 0.9% Flush (Ns Flush) (10/26/16 00:15) Orthostatic Blood Pressure (10/26/16 00:02) Sodium Chlor 0.9% 1000 Ml Inj (Ns 1000 M (10/26/16 00:45) Potassium, Serum (K) (10/26/16 01:49) Ciprofloxacin 400 Mg Premix (Cipro 400 M (10/26/16 02:00) Admit Order (Ed Use Only) (10/26/16 02:10) Labs Laboratory Tests Test 10/26/16 00:10 White Blood Count 11.2 TH/MM3 Red Blood Count 4.93 MIL/MM3 Hemoglobin 14.2 GM/DL Hematocrit 42.5 % Mean Corpuscular Volume 86.2 FL Mean Corpuscular Hemoglobin 28.9 PG Mean Corpuscular Hemoglobin 33.5 % Concent Red Cell Distribution Width 20.6 % Platelet Count 592 TH/MM3 Mean Platelet Volume 7.8 FL Neutrophils (%) (Auto) 61.7 % Lymphocytes (%) (Auto) 29.3 % Monocytes (%) (Auto) 6.9 % Eosinophils (%) (Auto) 1.8 % Basophils (%) (Auto) 0.3 % Neutrophils # (Auto) 6.9 TH/MM3 Lymphocytes # (Auto) 3.3 TH/MM3 Monocytes # (Auto) 0.8 TH/MM3 Eosinophils # (Auto) 0.2 TH/MM3 Basophils # (Auto) 0.0 TH/MM3 CBC Comment AUTO DIFF Differential Comment AUTO DIFF CONFIRMED Prothrombin Time 11.0 SEC Prothromb Time International 1.0 RATIO Ratio Activated Partial 31.1 SEC Thromboplast Time Sodium Level 134 MEQ/L Potassium Level 6.0 MEQ/L Chloride Level 106 MEQ/L Carbon Dioxide Level 13.4 MEQ/L Anion Gap 15 MEQ/L Blood Urea Nitrogen 33 MG/DL Creatinine 1.75 MG/DL Estimat Glomerular Filtration 29 ML/MIN Rate Random Glucose 148 MG/DL Calcium Level 10.2 MG/DL Magnesium Level 1.8 MG/DL Total Bilirubin 0.4 MG/DL Aspartate Amino Transf 63 U/L (AST/SGOT) Alanine Aminotransferase 72 U/L (ALT/SGPT) Alkaline Phosphatase 289 U/L Total Creatine Kinase 86 U/L Troponin I LESS THAN 0.02 NG/ML B-Type Natriuretic Peptide 36 PG/ML Total Protein 8.3 GM/DL Albumin 3.3 GM/DL [facility] Medical Decision Making Medical Screen Exam Complete: Yes Emergency Medical Condition: Yes Interpretation(s) EKG: Sinus tachycardia at 119bpm. LAD. RBBB. Differential Diagnosis Electrolyte abnormality vs. UTI vs. anemia Narrative Course 65yo F with urinary complaints and generalized weakness. Labs reviewed, K is 6.0, but it is slightly hemolyzed. Will have to repeat K. BUN/creatinine is 33 /1.75 which is increased from 0.93 on 10/11/16. BNP 36. UA showed large leukocyte and many WBC. Pt given cipro 400 IV. Pt given NS IVF. Reevaluated at bedside and still feels too weak to stand and walk. Repeat K is 5.0. Discussed with Dr. Jensen for admission UTI with AZALEA. Diagnosis Primary Impression: ARF (acute renal failure) Qualified Code: N17.9 - Acute renal failure, unspecified acute renal failure type Additional Impression: UTI (urinary tract infection) Qualified Code: N39.0 - Urinary tract infection with hematuria, site unspecified Admitting Information Admitting Physician Requests: Karoline Bernal DO Oct 26, 2016 00:06
[2016-10-26] MEDS ORDERED: SODIUM CHLORIDE 0.9% FLUSH 10 ML FLUSH IVF PRN (00:15)
[2016-10-26 00:34] LABS: AUTOMATED NEUTROPHIL # 6.9 TH/MM3 (1.8-7.7); BASOPHIL % 0.3 % (0.0-2.0); EOSINOPHIL # 0.2 TH/MM3 (0-0.4); EOSINOPHIL % 1.8 % (0.0-4.0); HEMATOCRIT 42.5 % (35.0-46.0); HEMO FLAGS AUTO DIFF; LYMPH % 29.3 % (9.0-44.0); LYMPHOCYTE # 3.3 TH/MM3 (1.0-4.8); MEAN CELL VOLUME 86.2 FL (80.0-100.0); MEAN CORPUSCULAR HEMOGLOBIN 28.9 PG (27.0-34.0); MEAN CORPUSCULAR HGB CONC 33.5 % (32.0-36.0); MONO % 6.9 % (0.0-8.0); NEUT % 61.7 % (16.0-70.0); PLATELET COUNT 592 TH/MM3 (150-450); RED BLOOD COUNT 4.93 MIL/MM3 (4.00-5.30); RED CELL DISTRIBUTION WIDTH 20.6 % (11.6-17.2); WHITE BLOOD COUNT 11.2 TH/MM3 (4.0-11.0)
[2016-10-26] MEDS ORDERED: SODIUM CHLOR 0.9% 1000 ML INJ 1,000 ML IV ONE (00:45)
[2016-10-26 00:46] LABS: APTT (PATIENT) 31.1 SEC (24.3-30.1)
[2016-10-26 00:58] LABS: ANION GAP 15 MEQ/L (5-15); AST (GOT) 63 U/L (15-37); BICARBONATE 13.4 MEQ/L (21.0-32.0); BLOOD UREA NITROGEN 33 MG/DL (7-18); CHLORIDE 106 MEQ/L (98-107); GLOMERULAR FILTRATION RATE 29 ML/MIN (>89); MAGNESIUM 1.8 MG/DL (1.5-2.5); SODIUM (NA) 134 MEQ/L (136-145)
[2016-10-26 01:09] LABS: ALKALINE PHOSPHATASE 289 U/L (45-117); ALT (GPT) 72 U/L (10-53); CREATINE KINASE 86 U/L (26-192); TOTAL BILIRUBIN ADULT 0.4 MG/DL (0.2-1.0)
[2016-10-26 01:36] LABS: SCAN/DIFF AUTO DIFF CONFIRMED
[2016-10-26] MEDS ORDERED: CIPROFLOXACIN 400 MG PREMIX 200 ML IV ONE (02:00)
[2016-10-26] MEDS ORDERED: SODIUM CHLORIDE 0.9% FLUSH 10 ML FLUSH IV FLUSH PRN (02:30)
[2016-10-26] MEDS ORDERED: NALOXONE HCL 0.4 MG/ML AMP IV PRN (02:30)
[2016-10-26 02:51] LABS: BACTERIA, URINE MANY /hpf; COMMENT (UR) CULTURE INDICATED; CULTURE IF INDICATED CULTURE INDICATED; MUCUS URINE FEW /lpf (OCC); RENAL EPITHELIAL CELLS 7 /hpf; SQUAMOUS EPITHELIAL CELL URINE 7 /hpf (0-5)
[2016-10-26] MEDS: SODIUM CHLOR 0.9% 1000 ML INJ 1,000 ML IV SCH ×3 (03:01→21:08)
[2016-10-26 03:02] LABS: URINE COLOR DARK-YELLOW (YELLW/STRAW)
[2016-10-26 03:03] LABS: BLOOD, URINE LARGE (NEG); GLUCOSE,URINE NEG (NEG); KETONE, URINE TRACE mg/dL (NEG); NITRITE,URINE NEG (NEG)
--- NOTE | 2016-10-26 03:53 | HHI.HP ---
HPI Service [facility] Primary [facility] Physician Navin Bonner M.D. Admission Diagnosis AZALEA, UTI Diagnoses: Chief Complaint: Weakness, urine burning Travel History International Travel<30 Days: No Contact w/Intl Traveler <30 Da: No Traveled to Known Affected Are: No History of Present Illness History from patient, ER physician communication, and review of medical records. Patient reported that she came to the hospital because she has been extremely weak for the past 2 days. She denies any syncopal episodes. She did feel dizzy though. She denies any chest pain/shortness of breath/focal weakness. She reports that she had similar symptoms for last time she was here in the hospital as well. She denies any nausea/vomiting/diarrhea/blood in her stool or in her urine. She does report of burning urination and pain on urination. Next and denies fever. Patient states that she also noted her blood pressure to be low. She denies prior history of hypertension. She does not take any medications at home for blood pressure. Her baseline blood pressure is around systolic of 112. In the emergency room, patient's blood pressures have been around 90s over 50s. Review of Systems Except as stated in HPI: all other systems reviewed are Neg Past Family Social History Past Medical History restless leg neuropathy Past Surgical History cholecystectomy many hernia surgeries Colectomy with colostomy reversal of colostomy Gastric bypass surgery Left knee arthroscopy Left finger surgery Reported Medications cymbalta requip Allergies: Coded Allergies: Penicillin (Verified Allergy, Severe, rash, 10/25/16) Family History mother- copd - lung cancer father- several heart attacks Social History no smoking/ no drinking/ no drugs havent driven in over a year lives with Physical Exam Vital Signs Vital Signs Date Time Temp Pulse Resp B/P Pulse Ox O2 Delivery O2 Flow Rate FiO2 10/26/16 03:02 98.1 99 18 96/53 99 Room Air 10/26/16 03:01 100 Room Air 10/25/16 23:50 125 18 98 Room Air 10/25/16 23:47 98.8 123 18 96/51 97 Physical Exam GENERAL: This is an elderly lady, looks chronically ill, not in acute distress. SKIN: No rashes, ecchymoses or lesions. Cool and dry. Poor skin turgor. HEAD: Atraumatic. Normocephalic. No temporal or scalp tenderness. EYES: No scleral icterus. No injection or drainage. ENT: Nose without bleeding, purulent drainage or septal hematoma. Airway patent. NECK: Trachea midline. No JVD CARDIOVASCULAR: Regular rate and rhythm without murmurs, gallops, or rubs. RESPIRATORY: Clear to auscultation. Breath sounds equal bilaterally. No wheezes , rales, or rhonchi. GASTROINTESTINAL: Abdomen soft, non-tender, nondistended. Left lower quadrant area with open wound from enterocutaneous fistula which is draining. Left colostomy bag which is empty but does have foul-smelling. No guarding. MUSCULOSKELETAL: Extremities without clubbing, cyanosis, or edema.. No calf tenderness. NEUROLOGICAL: Awake and alert. Motor and sensory grossly within normal limits. 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 Laboratory Laboratory Tests Test 10/26/16 10/26/16 10/26/16 00:10 02:28 02:30 White Blood Count 11.2 Red Blood Count 4.93 Hemoglobin 14.2 Hematocrit 42.5 Mean Corpuscular Volume 86.2 Mean Corpuscular Hemoglobin 28.9 Mean Corpuscular Hemoglobin 33.5 Concent Red Cell Distribution Width 20.6 Platelet Count 592 Mean Platelet Volume 7.8 Neutrophils (%) (Auto) 61.7 Lymphocytes (%) (Auto) 29.3 Monocytes (%) (Auto) 6.9 Eosinophils (%) (Auto) 1.8 Basophils (%) (Auto) 0.3 Neutrophils # (Auto) 6.9 Lymphocytes # (Auto) 3.3 Monocytes # (Auto) 0.8 Eosinophils # (Auto) 0.2 Basophils # (Auto) 0.0 CBC Comment AUTO DIFF Differential Comment AUTO DIFF CONFIRMED Prothrombin Time 11.0 Prothromb Time International 1.0 Ratio Activated Partial 31.1 Thromboplast Time Sodium Level 134 Potassium Level 6.0 5.0 Chloride Level 106 Carbon Dioxide Level 13.4 Anion Gap 15 Blood Urea Nitrogen 33 Creatinine 1.75 Estimat Glomerular Filtration 29 Rate Random Glucose 148 Calcium Level 10.2 Magnesium Level 1.8 Total Bilirubin 0.4 Aspartate Amino Transf 63 (AST/SGOT) Alanine Aminotransferase 72 (ALT/SGPT) Alkaline Phosphatase 289 Total Creatine Kinase 86 Troponin I LESS THAN 0.02 B-Type Natriuretic Peptide 36 Total Protein 8.3 Albumin 3.3 Urine Color DARK-YELLOW Urine Turbidity CLOUDY Urine pH 6.0 Urine Specific Umbarger 1.024 Urine Protein 300 Urine Glucose (UA) NEG Urine Ketones TRACE Urine Occult Blood LARGE Urine Nitrite NEG Urine Bilirubin NEGATIVE Urine Urobilinogen 2.0 Urine Leukocyte Esterase LARGE Urine RBC 85 Urine WBC Urine WBC Clumps MANY Urine Squamous Epithelial 7 Cells Urine Renal Epithelial Cells 7 Urine Bacteria MANY Urine Mucus FEW Microscopic Urinalysis Comment CULTURE INDICATED Date/Time Procedure Status Source Growth 10/26/16 02:30 Urine Culture Received Urine Random Urine Pending Result Diagram: 10/26/16 0010 10/26/16 0228 Assessment and Plan Assessment and Plan Impression: Generalized weaknesslikely due to acute infectious process. UTI Hypotensionpatient is awake alert and oriented. Not tachycardic. Baseline systolic pressures around 112. 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 Current hyperkalemia is hemolyzed. Repeat potassium was 5.0. Acute renal failuresecondary to dehydration Recent Klebsiella UTI Plan: IV hydration with normal saline at 100 cc per hour. Closely monitor potassium levels. Close monitoring of blood pressure. Wound care consult for the care of enterocutaneous fistula. Previous culture results reviewed. Will cover with Rocephin and Flagyl. Resume home meds. DVT prophylaxiswith heparin. Physician Certification 2 Midnight Certification Type: Admission for Inpatient Services Order for Inpatient Services The services are ordered in accordance with Medicare regulations or non- Medicare payer requirements, as applicable. In the case of services not specified as inpatient-only, they are appropriately provided as inpatient services in accordance with the 2-midnight benchmark. Estimated LOS (days): 3 days is the estimated time the patient will need to remain in the hospital, assuming treatment plan goals are met and no additional complications. Post-Hospital Plan: Home Rolando Jensen MD Oct 26, 2016 03:53
[2016-10-26] MEDS: metroNIDAZOLE 500 MG INJ 100 ML IV SCH ×4 (04:31→21:06)
--- NOTE | 2016-10-26 07:44 | EKG ---
Date Performed: 10/26/2016 Time Performed: 00:14:15 PTAGE: 65 years EKG: SINUS TACHYCARDIA WITH SHORT ME INTERVAL Premature atrial contractions MARKED LEFT AXIS DEV IATION LOW QRS VOLTAGE IN PRECORDIAL LEADS INCOMPLETE RIGHT BUNDLE BRANCH BLOCK MODERATE ST DEPRESSIO N ABNORMAL ECG COMPARED TO PRIOR ELECTROCARDIOGRAM, Rate has increased. PREVIOUS TRACING : 10/05/2016 14.15 DOCTOR: Eduardo Boo Interpretating Date/Time 10/26/2016 07:43:06
[2016-10-26] MEDS: FERROUS SULFATE 325 MG (65 MG ELEMENTAL IRON) TAB PO SCH (09:00)
[2016-10-26] MEDS ORDERED: ONDANSETRON ODT 4 MG TAB PO PRN (09:00)
[2016-10-26] MEDS: SODIUM CHLORIDE 0.9% FLUSH 10 ML FLUSH IV FLUSH SCH ×2 (09:00→21:00)
[2016-10-26] MEDS ORDERED: FAMOTIDINE 20 MG TAB PO SCH (09:00)
[2016-10-26] MEDS ORDERED: DIPHENOXYLATE/ATROPINE 2.5 MG/0.025 MG TAB PO PRN (09:00)
[2016-10-26] MEDS ORDERED: METOPROLOL TARTRATE 25 MG TAB PO SCH (09:00)
[2016-10-26] MEDS: CLOTRIMAZOLE 1% CREAM 15 GM TOPICAL SCH ×3 (09:00→21:07)
[2016-10-26] MEDS: LACTOBACILLUS ACIDOPHILUS TAB PO SCH ×3 (09:23→17:18)
[2016-10-26] MEDS: ACETAMINOPHEN/HYDROcodone 325 MG/7.5 MG TAB PO PRN ×2 (09:23→13:49)
[2016-10-26] MEDS: ASCORBIC ACID 500 MG TAB PO SCH ×2 (09:23→21:04)
[2016-10-26] MEDS: ZINC SULFATE 220 MG CAP PO SCH (09:24)
[2016-10-26] MEDS: DULoxetine HCl DR 30 MG CAP PO SCH (09:25)
[2016-10-26] MEDS: cefTRIAXone INJ 2,000 MG in SODIUM CHLORIDE 0.9% INJ 100 ML IV SCH ×2 (09:25→21:05)
[2016-10-26] MEDS: PANTOPRAZOLE SOD 40 MG DELAYED RELEASE TAB PO SCH ×2 (09:39→21:05)
[2016-10-26] MEDS: HEPARIN SODIUM - SQ 10,000 UNITS/ML VIAL SQ SCH ×2 (12:24→21:04)
[2016-10-26] MEDS ORDERED: LEVOFLOXACIN 750 MG PREMIX INJ 150 ML IV SCH (15:00)
[2016-10-26] MEDS: MIDODRINE 5 MG TAB PO PRN (17:18)
[2016-10-26] MEDS ORDERED: SODIUM CHLORID 0.9% 500 ML INJ 500 ML IV ONE (18:30)
[2016-10-26] MEDS ORDERED: MIDODRINE 5 MG TAB PO ONE (18:30)
[2016-10-26] MEDS: PRAMIPEXOLE DIHYDROCHLORIDE 0.25 MG TAB PO SCH (21:04)
[2016-10-27] VITALS (7 sets, daily range): BP systolic 83–105; BP diastolic 40–55; PULSE 73–88; RESP 16–18; TEMP 97.6–98.1; O2SAT 96–100
[2016-10-27] MEDS: metroNIDAZOLE 500 MG INJ 100 ML IV SCH ×4 (04:56→21:19)
[2016-10-27] MEDS: HEPARIN SODIUM - SQ 10,000 UNITS/ML VIAL SQ SCH ×3 (04:57→21:21)
[2016-10-27] MEDS: ACETAMINOPHEN/HYDROcodone 325 MG/5 MG TAB PO PRN (04:57)
[2016-10-27] MEDS: MIDODRINE 5 MG TAB PO PRN (06:31)
[2016-10-27] MEDS: FERROUS SULFATE 325 MG (65 MG ELEMENTAL IRON) TAB PO SCH (09:00)
[2016-10-27] MEDS: CLOTRIMAZOLE 1% CREAM 15 GM TOPICAL SCH ×2 (09:00→21:00)
[2016-10-27] MEDS: ZINC SULFATE 220 MG CAP PO SCH (09:22)
[2016-10-27] MEDS: SODIUM CHLORIDE 0.9% FLUSH 10 ML FLUSH IV FLUSH SCH ×2 (09:22→21:21)
[2016-10-27] MEDS: LACTOBACILLUS ACIDOPHILUS TAB PO SCH ×3 (09:22→16:21)
[2016-10-27] MEDS: ASCORBIC ACID 500 MG TAB PO SCH ×2 (09:22→21:20)
[2016-10-27] MEDS: cefTRIAXone INJ 2,000 MG in SODIUM CHLORIDE 0.9% INJ 100 ML IV SCH ×2 (09:22→21:15)
[2016-10-27] MEDS: DULoxetine HCl DR 30 MG CAP PO SCH (09:22)
[2016-10-27] MEDS: PANTOPRAZOLE SOD 40 MG DELAYED RELEASE TAB PO SCH ×2 (09:22→21:20)
[2016-10-27] MEDS: SODIUM CHLOR 0.9% 1000 ML INJ 1,000 ML IV SCH ×2 (09:23→16:24)
--- NOTE | 2016-10-27 10:12 | HHI.PR ---
Subjective Remarks Hypotension overnight. Stabilized on Midodrine. Endocrine studies pending. No complaints when seen. No dizziness, no SOB, no presyncope/syncope, no chest pain. Objective Vital Signs Date Time Temp Pulse Resp B/P Pulse Ox O2 Delivery O2 Flow Rate FiO2 10/27/16 08:00 97.6 83 16 88/53 98 10/27/16 04:00 97.7 85 18 94/50 96 10/27/16 01:59 73 10/27/16 00:00 97.6 80 18 84/47 99 10/26/16 21:10 Room Air 10/26/16 21:00 88/62 10/26/16 20:00 97.8 88 16 80/48 97 10/26/16 18:38 93/46 10/26/16 18:08 74/38 10/26/16 16:00 98.3 80 18 87/46 99 10/26/16 13:45 101/60 10/26/16 12:00 97.7 78 18 86/50 97 I/O 10/26/16 10/26/16 10/26/16 10/27/16 10/27/16 10/27/16 07:00 15:00 23:00 07:00 15:00 23:00 Intake Total 2546 ml 240 ml 120 ml Output Total 400 ml 550 ml 650 ml Balance 2146 ml -310 ml -530 ml Intake Oral 720 ml 240 ml 120 ml IV Total 1826 ml Output Urine Total 300 ml 250 ml 350 ml Stool Total 100 ml 300 ml 300 ml Result Diagram: 10/26/16 0010 10/26/16 0228 Objective Remarks GENERAL: NAD, A&Ox3 SKIN: Warm and dry. HEAD: Normocephalic. EYES: No scleral icterus. No injection or drainage. NECK: Supple, trachea midline. No JVD or lymphadenopathy. CARDIOVASCULAR: Regular rate and rhythm without murmurs, gallops, or rubs. RESPIRATORY: Breath sounds equal bilaterally. No accessory muscle use. GASTROINTESTINAL: Abdomen soft, non-tender, nondistended. MUSCULOSKELETAL: No cyanosis, or edema. BACK: Nontender without obvious deformity. No CVA tenderness. Medications and IVs Administered Medications Medications (Trade) Dose Ordered Sig/Johnie Route PRN Reason Start Time Stop Time Status Last Admin Dose Admin Sodium Chloride (NS 1000 ml Inj) 1,000 ml @ 100 mls/hr Q10H IV 10/26/16 02:16 10/27/16 09:23 Sodium Chloride 2 ml 2 ml BID IV FLUSH 10/26/16 09:00 10/27/16 09:22 Metronidazole (Flagyl 500 Mg Inj) 100 ml @ 100 mls/hr Q6H IV 10/26/16 04:15 10/27/16 10:04 Ascorbic Acid (Vitamin C) 500 mg BID PO 10/26/16 09:00 10/27/16 09:22 Clotrimazole (Lotrimin 1% Cream) 1 applic Q12HR TOPICAL 10/26/16 09:00 10/26/16 21:07 Duloxetine HCl (Cymbalta Dr) 30 mg DAILY PO 10/26/16 09:00 10/27/16 09:22 Lactobacillus Acidophilus (Lactinex) 1 tab TID PO 10/26/16 09:00 10/27/16 09:22 Metoprolol Tartrate (Lopressor) 25 mg BID PO 10/26/16 09:00 Hold 10/26/16 09:23 Pantoprazole Sodium (Protonix) 40 mg BID PO 10/26/16 10:00 10/27/16 09:22 Pramipexole Dihydrochloride (Mirapex) 0.5 mg HS PO 10/26/16 21:00 10/26/16 21:04 Zinc Sulfate (Zinc Sulfate) 220 mg DAILY PO 10/26/16 09:00 10/27/16 09:22 Heparin Sodium (Porcine) 5000 units 5,000 units Q8HR SQ 10/26/16 14:00 10/27/16 04:57 Ceftriaxone Sodium/Sodium Chloride (Rocephin Inj/NS Inj) 100 ml @ 200 mls/hr Q12H IV 10/26/16 09:00 10/27/16 09:22 Acetaminophen/ Hydrocodone Bitart ([place] 5-325 Mg) 1 tab Q6H PRN PO PAIN LESS THAN 5 ON SCALE 10/26/16 18:30 10/27/16 04:57 A/P Problem List: (1) Hypotension ICD Code: I95.9 Assessment & Plan: Monitor BP Midodrine 10mg TID Hold midodrine if BP stabilizes IV Hydration at 100 ml/hr May need ICU if this condition worsens Evaluate with ACTH and Cortisol levels (2) ARF (acute renal failure) ICD Code: N17.9 Assessment & Plan: Follow renal function IV Hydration (3) UTI (urinary tract infection) ICD Code: N39.0 Assessment & Plan: Rocephin Flagyl Follow urine cultures May be contributory to hypotension Hypotension persent but no evidence of sepsis to suggest septic shock Problem Qualifiers (1) ARF (acute renal failure): Qualified Code: N17.9 - Acute renal failure, unspecified acute renal failure type (2) UTI (urinary tract infection): Qualified Code: N39.0 - Urinary tract infection with hematuria, site unspecified Audie Haas MD Oct 27, 2016 10:12
[2016-10-27 10:16] LABS: AUTOMATED NEUTROPHIL # 3.1 TH/MM3 (1.8-7.7); BASOPHIL # 0.1 TH/MM3 (0-0.2); BASOPHIL % 1.1 % (0.0-2.0); EOSINOPHIL # 0.3 TH/MM3 (0-0.4); EOSINOPHIL % 4.7 % (0.0-4.0); HEMATOCRIT 34.7 % (35.0-46.0); HEMO FLAGS DIFF FINAL; LYMPHOCYTE # 1.7 TH/MM3 (1.0-4.8); MEAN CELL VOLUME 87.9 FL (80.0-100.0); MEAN CORPUSCULAR HEMOGLOBIN 28.1 PG (27.0-34.0); MONO % 7.8 % (0.0-8.0); NEUT % 55.4 % (16.0-70.0); PLATELET COUNT 384 TH/MM3 (150-450); RED BLOOD COUNT 3.94 MIL/MM3 (4.00-5.30); RED CELL DISTRIBUTION WIDTH 21.1 % (11.6-17.2); WHITE BLOOD COUNT 5.5 TH/MM3 (4.0-11.0)
[2016-10-27 10:43] LABS: BICARBONATE 14.5 MEQ/L (21.0-32.0); POTASSIUM 3.8 MEQ/L (3.5-5.1)
[2016-10-27] MEDS: MIDODRINE 5 MG TAB PO SCH ×2 (12:17→16:21)
[2016-10-27] MEDS ORDERED: ONDANSETRON HCL 4 MG/2 ML VIAL ONE (16:11)
[2016-10-27] MEDS: PRAMIPEXOLE DIHYDROCHLORIDE 0.25 MG TAB PO SCH (21:20)
[2016-10-27] MEDS: ZOLPIDEM TARTRATE 5 MG TAB PO PRN (22:55)
[2016-10-28] VITALS: BP 95/53; PULSE 85; RESP 18; TEMP 97.6; O2SAT 96
[2016-10-28] MEDS: ACETAMINOPHEN/HYDROcodone 325 MG/5 MG TAB PO PRN ×3 (01:10→19:26)
[2016-10-28 04:00] VITALS: BP 98/54; PULSE 80; RESP 18; TEMP 98; O2SAT 99
[2016-10-28] MEDS: SODIUM CHLOR 0.9% 1000 ML INJ 1,000 ML IV SCH (04:05)
[2016-10-28] MEDS: metroNIDAZOLE 500 MG INJ 100 ML IV SCH ×4 (04:06→22:35)
[2016-10-28] MEDS: MIDODRINE 5 MG TAB PO SCH ×3 (06:23→16:11)
[2016-10-28] MEDS: HEPARIN SODIUM - SQ 10,000 UNITS/ML VIAL SQ SCH ×3 (06:25→22:34)
[2016-10-28 08:00] VITALS: BP 100/50; PULSE 77; RESP 18; TEMP 98.3; O2SAT 100
[2016-10-28] MEDS: ASCORBIC ACID 500 MG TAB PO SCH ×2 (08:56→22:33)
[2016-10-28] MEDS: LACTOBACILLUS ACIDOPHILUS TAB PO SCH ×3 (08:56→16:11)
[2016-10-28] MEDS: cefTRIAXone INJ 2,000 MG in SODIUM CHLORIDE 0.9% INJ 100 ML IV SCH ×2 (08:56→22:30)
[2016-10-28] MEDS: ZINC SULFATE 220 MG CAP PO SCH (08:56)
[2016-10-28] MEDS: PANTOPRAZOLE SOD 40 MG DELAYED RELEASE TAB PO SCH ×2 (08:56→22:33)
[2016-10-28] MEDS: DULoxetine HCl DR 30 MG CAP PO SCH (08:56)
[2016-10-28] MEDS: FERROUS SULFATE 325 MG (65 MG ELEMENTAL IRON) TAB PO SCH (08:57)
[2016-10-28] MEDS: CLOTRIMAZOLE 1% CREAM 15 GM TOPICAL SCH ×2 (08:58→21:00)
[2016-10-28] MEDS: SODIUM CHLORIDE 0.9% FLUSH 10 ML FLUSH IV FLUSH SCH ×2 (08:59→22:33)
--- NOTE | 2016-10-28 10:21 | HHI.PR ---
Subjective Remarks Hypotension appears to be resolving. No complaints from the patient. Endocrine studies are negative thus far. Objective Vital Signs Date Time Temp Pulse Resp B/P Pulse Ox O2 Delivery O2 Flow Rate FiO2 10/28/16 08:56 Room Air 10/28/16 08:00 98.3 77 18 100/50 100 10/28/16 04:00 98.0 80 18 98/54 99 10/28/16 00:00 97.6 85 18 95/53 96 10/27/16 20:00 98.1 88 16 105/55 98 10/27/16 20:00 Room Air 10/27/16 20:00 83 10/27/16 16:00 97.9 78 16 93/49 100 10/27/16 12:00 97.8 87 16 83/40 98 I/O 10/27/16 10/27/16 10/27/16 10/28/16 10/28/16 10/28/16 07:00 15:00 23:00 07:00 15:00 23:00 Intake Total 120 ml 5313 ml 240 ml 1614 ml Output Total 650 ml 150 ml 1350 ml 400 ml 350 ml Balance -530 ml 5163 ml -1110 ml 1214 ml -350 ml Intake Oral 120 ml 480 ml 240 ml 240 ml IV Total 3421 ml 1374 ml Tube Feeding 1012 ml Other 400 ml Output Urine Total 350 ml Stool Total 300 ml 150 ml 1350 ml 400 ml 350 ml # Voids 5 3 3 Result Diagram: 10/27/16 0947 10/27/16 0600 Objective Remarks GENERAL: NAD, A&Ox3 SKIN: Warm and dry. HEAD: Normocephalic. EYES: No scleral icterus. No injection or drainage. NECK: Supple, trachea midline. No JVD or lymphadenopathy. CARDIOVASCULAR: Regular rate and rhythm without murmurs, gallops, or rubs. RESPIRATORY: Breath sounds equal bilaterally. No accessory muscle use. GASTROINTESTINAL: Abdomen soft, non-tender, nondistended. MUSCULOSKELETAL: No cyanosis, or edema. BACK: Nontender without obvious deformity. No CVA tenderness. Medications and IVs Administered Medications Medications (Trade) Dose Ordered Sig/Johnie Route PRN Reason Start Time Stop Time Status Last Admin Dose Admin Sodium Chloride 2 ml 2 ml BID IV FLUSH 10/26/16 09:00 10/27/16 21:21 Metronidazole (Flagyl 500 Mg Inj) 100 ml @ 100 mls/hr Q6H IV 10/26/16 04:15 10/28/16 10:09 Ascorbic Acid (Vitamin C) 500 mg BID PO 10/26/16 09:00 10/28/16 08:56 Clotrimazole (Lotrimin 1% Cream) 1 applic Q12HR TOPICAL 10/26/16 09:00 10/26/16 21:07 Duloxetine HCl (Cymbalta Dr) 30 mg DAILY PO 10/26/16 09:00 10/28/16 08:56 Lactobacillus Acidophilus (Lactinex) 1 tab TID PO 10/26/16 09:00 10/27/16 16:21 Metoprolol Tartrate (Lopressor) 25 mg BID PO 10/26/16 09:00 Hold 10/26/16 09:23 Pantoprazole Sodium (Protonix) 40 mg BID PO 10/26/16 10:00 10/28/16 08:56 Pramipexole Dihydrochloride (Mirapex) 0.5 mg HS PO 10/26/16 21:00 10/27/16 21:20 Zinc Sulfate (Zinc Sulfate) 220 mg DAILY PO 10/26/16 09:00 10/28/16 08:56 Zolpidem Tartrate (Ambien) 5 mg HS PRN PO INSOMNIA 10/26/16 07:45 10/27/16 22:55 Ondansetron HCl (Zofran Odt) 4 mg Q6HR PRN PO NAUSEA OR VOMITING 10/26/16 09:00 10/27/16 16:21 Heparin Sodium (Porcine) 5000 units 5,000 units Q8HR SQ 10/26/16 14:00 10/28/16 06:25 Ceftriaxone Sodium/Sodium Chloride (Rocephin Inj/NS Inj) 100 ml @ 200 mls/hr Q12H IV 10/26/16 09:00 10/28/16 08:56 Acetaminophen/ Hydrocodone Bitart ([place] 5-325 Mg) 1 tab Q6H PRN PO PAIN LESS THAN 5 ON SCALE 10/26/16 18:30 10/28/16 01:10 Midodrine (Proamatine) 10 mg TID@07,12,17 PO 10/27/16 12:00 10/28/16 06:23 A/P Problem List: (1) Hypotension ICD Code: I95.9 Assessment & Plan: Improved today Monitor BP Midodrine 10mg TID Wean midodrine if BPs remain stable of IV Hydration Hold midodrine if BP stabilizes IV Hydration discontinued Evaluate with ACTH and Cortisol levels (2) ARF (acute renal failure) ICD Code: N17.9 Assessment & Plan: Follow renal function Returned to normal range now IV Fluids discontinued today (3) UTI (urinary tract infection) ICD Code: N39.0 Assessment & Plan: Rocephin Flagyl Follow urine cultures May be contributory to hypotension Hypotension persent but no evidence of sepsis to suggest septic shock Problem Qualifiers (1) ARF (acute renal failure): Qualified Code: N17.9 - Acute renal failure, unspecified acute renal failure type (2) UTI (urinary tract infection): Qualified Code: N39.0 - Urinary tract infection with hematuria, site unspecified Audie Haas MD Oct 28, 2016 10:21
[2016-10-28 11:01] LABS: BICARBONATE 17.1 MEQ/L (21.0-32.0); POTASSIUM 3.6 MEQ/L (3.5-5.1)
[2016-10-28 12:00] VITALS: BP 119/62; PULSE 80; RESP 18; TEMP 97.6; O2SAT 97
[2016-10-28 16:00] VITALS: BP 105/52; PULSE 88; RESP 18; TEMP 98.1; O2SAT 96
[2016-10-28 20:00] VITALS: BP 113/53; PULSE 100; PULSE 88; RESP 20; TEMP 98.1; O2SAT 98
[2016-10-28] MEDS: PRAMIPEXOLE DIHYDROCHLORIDE 0.25 MG TAB PO SCH (22:33)
[2016-10-29] VITALS: BP 108/53; PULSE 78; RESP 20; TEMP 98.2; O2SAT 99
[2016-10-29] MEDS: ZOLPIDEM TARTRATE 5 MG TAB PO PRN (00:44)
[2016-10-29 04:00] VITALS: BP 116/65; PULSE 90; RESP 20; TEMP 98; O2SAT 98
[2016-10-29] MEDS: metroNIDAZOLE 500 MG INJ 100 ML IV SCH ×2 (05:13→09:46)
[2016-10-29] MEDS: HEPARIN SODIUM - SQ 10,000 UNITS/ML VIAL SQ SCH (05:16)
[2016-10-29] MEDS: ACETAMINOPHEN/HYDROcodone 325 MG/5 MG TAB PO PRN ×2 (05:48→11:44)
[2016-10-29] MEDS: MIDODRINE 5 MG TAB PO SCH (05:48)
[2016-10-29 08:00] VITALS: BP 107/57; PULSE 79; RESP 18; TEMP 98; O2SAT 97
[2016-10-29 08:46] LABS: HEMATOCRIT 33.7 % (35.0-46.0); MEAN CELL VOLUME 86.1 FL (80.0-100.0); MEAN CORPUSCULAR HEMOGLOBIN 27.5 PG (27.0-34.0); PLATELET COUNT 395 TH/MM3 (150-450); RED BLOOD COUNT 3.92 MIL/MM3 (4.00-5.30); REVIEW FLAG FINAL; WHITE BLOOD COUNT 5.5 TH/MM3 (4.0-11.0)
[2016-10-29 09:04] LABS: BICARBONATE 15.6 MEQ/L (21.0-32.0); POTASSIUM 3.5 MEQ/L (3.5-5.1)
[2016-10-29] MEDS: PANTOPRAZOLE SOD 40 MG DELAYED RELEASE TAB PO SCH (09:45)
[2016-10-29] MEDS: ASCORBIC ACID 500 MG TAB PO SCH (09:45)
[2016-10-29] MEDS: DULoxetine HCl DR 30 MG CAP PO SCH (09:45)
[2016-10-29] MEDS: cefTRIAXone INJ 2,000 MG in SODIUM CHLORIDE 0.9% INJ 100 ML IV SCH (09:45)
[2016-10-29] MEDS: ZINC SULFATE 220 MG CAP PO SCH (09:45)
[2016-10-29] MEDS: LACTOBACILLUS ACIDOPHILUS TAB PO SCH ×2 (09:45→11:44)
[2016-10-29] MEDS: SODIUM CHLORIDE 0.9% FLUSH 10 ML FLUSH IV FLUSH SCH (09:46)
[2016-10-29] MEDS: FERROUS SULFATE 325 MG (65 MG ELEMENTAL IRON) TAB PO SCH (09:47)
[2016-10-29] MEDS: CLOTRIMAZOLE 1% CREAM 15 GM TOPICAL SCH (09:48)
[2016-10-29 09:55] VITALS: PULSE 80
[2016-10-29 12:00] VITALS: BP 109/77; PULSE 54; RESP 20; TEMP 98.1; O2SAT 98
[2016-10-29] MEDS ORDERED: CEPH-460 PO (13:41)
--- NOTE | 2016-10-29 13:50 | HHI.DS ---
Discharge Summary Admission Date Oct 26, 2016 at 02:12 Discharge Date: October 29, 2016 Admitting Diagnosis [place]ALEA, UTI (1) UTI (urinary tract infection) ICD Code: N39.0 Diagnosis: Principal (2) Hypotension ICD Code: I95.9 Diagnosis: Secondary (3) ARF (acute renal failure) ICD Code: N17.9 Diagnosis: Principal Procedures none Brief History - From Admission History from patient, ER physician communication, and review of medical records. Patient reported that she came to the hospital because she has been extremely weak for the past 2 days. She denies any syncopal episodes. She did feel dizzy though. She denies any chest pain/shortness of breath/focal weakness. She reports that she had similar symptoms for last time she was here in the hospital as well. She denies any nausea/vomiting/diarrhea/blood in her stool or in her urine. She does report of burning urination and pain on urination. Next and denies fever. Patient states that she also noted her blood pressure to be low. She denies prior history of hypertension. She does not take any medications at home for blood pressure. Her baseline blood pressure is around systolic of 112. In the emergency room, patient's blood pressures have been around 90s over 50s. CBC/BMP: 10/29/16 0750 10/29/16 0750 Significant Findings Laboratory Tests Test 10/27/16 10/27/16 10/28/16 10/29/16 06:00 09:47 08:27 07:50 Chloride Level 117 MEQ/L 118 MEQ/L 116 MEQ/L (98-107) (98-107) (98-107) Carbon Dioxide Level 14.5 MEQ/L 17.1 MEQ/L 15.6 MEQ/L (21.0-32.0) (21.0-32.0) (21.0-32.0) Estimat Glomerular Filtration 82 ML/MIN (>89) Rate Calcium Level 8.1 MG/DL 7.9 MG/DL 8.3 MG/DL (8.5-10.1) (8.5-10.1) (8.5-10.1) Red Blood Count 3.94 MIL/MM3 3.92 MIL/MM3 (4.00-5.30) (4.00-5.30) Hemoglobin 11.1 GM/DL 10.8 GM/DL (11.6-15.3) (11.6-15.3) Hematocrit 34.7 % 33.7 % (35.0-46.0) (35.0-46.0) Red Cell Distribution Width 21.1 % 22.0 % (11.6-17.2) (11.6-17.2) Eosinophils (%) (Auto) 4.7 % (0.0-4.0) PE at Discharge GENERAL: NAD, A&Ox3 SKIN: Warm and dry. HEAD: Normocephalic. EYES: No scleral icterus. No injection or drainage. NECK: Supple, trachea midline. No JVD or lymphadenopathy. CARDIOVASCULAR: Regular rate and rhythm without murmurs, gallops, or rubs. RESPIRATORY: Breath sounds equal bilaterally. No accessory muscle use. GASTROINTESTINAL: Abdomen soft, non-tender, nondistended. MUSCULOSKELETAL: No cyanosis, or edema. BACK: Nontender without obvious deformity. No CVA tenderness. Pt update on day of discharge Resolution of hypotension. Weened from Fluids and Midodrine and BP remain stable. Medically clear for discharge. Hospital Course Mrs. Navarro was admitted with a UTI and ARF. UTI was treated and with hydration and UTI treatment her ARF resolved. However, she developed a transient hypotension for several days and this was managed with continuation of her IV Hydration and Midodrine. She has been weaned from these and is staying at baseline. Medically stable for discharge to home today. Pt Condition on Discharge: Stable Discharge Disposition: Discharge Home Discharge Time: <= 30 minutes Discharge Instructions DIET: Follow Instructions for: As Tolerated, No Restrictions Activities you can perform: Regular-No Restrictions Follow up Referrals: PCP Follow-up - 2 Weeks New Medications: Cephalexin (Keflex) 500 Mg Cap 500 MG PO Q12H Infection #10 Ref 0 CAP Continued Medications: Alteplase Inj (Cathflo Activase Inj) 2 Mg Inj 2 MG INTRACATH Q2H PRN OCCLUDED CATHETER #30 Ref 0 INJECTION Ascorbic Acid (Ascorbic Acid) 500 Mg Tab 500 MG PO BID WOUND HEALING TAB Bisacodyl Supp (Bisac-Evac Supp) 10 Mg Supp 10 MG RECTAL DAILY PRN CONSTIPATION #30 Calcium Carbonate-Vitamin D (Oscal 500/200 D-3) 500-200 Mg-Unit Tab 1 TAB PO BID Calcium Supplement Ref 0 TAB Clotrimazole Topical (Clotrimazole Anti-Fungal Topical) 1% Cream 1 APPLIC TOPICAL Q12HR #1 Ref 0 TUBE Diphenoxylate-Atropine (Diphenoxylate-Atropine) 2.5-0.025 Mg Tab 1 TAB PO BID PRN Fistula output>400 ml/day #[address] (Dul[address]etine DR) 30 Mg Capdr 30 MG PO DAILY #30 Ref 0 CAP Famotidine (Famotidine) 20 Mg Tab 20 MG PO Q12HR #60 Ref 0 TAB Ferrous Sulfate (Ferrous Sulfate) 325 Mg Tab 325 MG PO DAILY Nutritional Supplement #30 Ref 0 TAB Hydrocodone-Acetaminophen (Hydrocodone-Acetaminophen) 7.5-325 mg Tab 1 TAB PO Q4H PRN PAIN SCALE 6 TO 10 #30 Ref 0 TAB Lactobacillus Acidophilus (Acidophilus/l-Sporogenes) 1 Tab Tab 1 TAB PO TID #90 Ref 0 TAB Metoprolol Tartrate (Metoprolol Tartrate) 25 Mg Tab 25 MG PO BID HTN #60 Ref 0 TAB Multiple Vitamins W/ Minerals (One Daily-Minerals) 1 Tab 1 TAB PO DAILY WOUND HEALING #100 Ref 0 TAB Ondansetron (Zofran) 4 Mg Tab 4 MG PO Q6HR PRN NAUSEA OR VOMITING Ref 0 TAB Pantoprazole (Pantoprazole) 40 Mg Tab 40 MG PO BID GASTRITIS ADB PAIN #30 Ref 0 TAB Pramipexole (Mirapex) 0.5 Mg Tab 0.5 MG PO HS MUSCLE WEAKNESS #30 TAB Promethazine Inj (Promethazine Inj) 25 Mg/Ml Inj 25 MG IM Q6H PRN NAUSEA OR VOMITING VIAL Sodium Chloride Flush (Normal Saline I.v. Flush) 0.9 % Inj 10 ML IV FLUSH DAILY PREVENTATIVE MEASURES Sulfamethoxazole-Trimethoprim (Bactrim DS) 800-160 Mg Tab 1 TAB PO Q12HR #8 TAB Zinc Sulfate (Zinc Sulfate) 220 Mg Tab 220 MG PO DAILY WOUND HEALING Ref 0 TAB Zolpidem (Ambien) 5 Mg Tab 5 MG PO HS PRN INSOMNIA #20 Ref 0 TAB Audie Haas MD October 29, 2016 13:50
--- NOTE | 2016-10-29 15:17 | HHI.FF ---
Face to Face Verification Diagnosis: (1) Enterocutaneous fistula (2) Colocutaneous fistula (3) Abscess of abdominal wall (4) Open wound anterior abdominal wall (5) Impaired mobility and activities of daily living Physical Therapy Order: Evaluate and Treat Home Health Nursing Order: Wound care and dressing changes Instructions: Resume wound care I have seen patient Halle Navarro on 10/29/16. My clinical findings support the need for the requested home health care services because: Ltd mobility - disease progression Deconditioned w/ increased weakness Limited ability to care for self High risk of falls I certify that my clinical findings support that this patient is homebound because: Unsteady gait/balance Unable to use public transportation Audie Haas MD October 29, 2016 3:17 pm
== END 2016-10-29 15:32 | disposition home or self-care (01) | DRG 683 ==
LOC: NEPE 23:44 → OBSVTOIN 10-26 02:12 → INTOOBSV 10-26 02:12 → NEDA 10-26 02:12 → N04B 10-26 06:05
PROVIDERS: ADMIT Hospitalist; ATTEND Hospitalist
DX: N17.9 Acute kidney failure, unspecified (principal); N39.0 Urinary tract infection, site not specified; E86.0 Dehydration; K63.2 Fistula of intestine; I95.9 Hypotension, unspecified; E87.5 Hyperkalemia; K75.9 Inflammatory liver disease, unspecified; R31.9 Hematuria, unspecified; M48.00 Spinal stenosis, site unspecified; M19.90 Unspecified osteoarthritis, unspecified site; E78.00 Pure hypercholesterolemia, unspecified; Z79.02 Long term (current) use of antithrombotics/antiplatelets; I10 Essential (primary) hypertension; Z88.0 Allergy status to penicillin; R30.9 Painful micturition, unspecified; G25.81 Restless legs syndrome; Z98.84 Bariatric surgery status; Z82.49 Family history of ischemic heart disease and other diseases of the circulatory system; Z80.1 Family history of malignant neoplasm of trachea, bronchus and lung; Z93.3 Colostomy status
CPT/HCPCS: 80048; 80053; 81001; 82024; 82533; 82550; 83735; 83880; 84132; 84484; 85025; 85027; 85610; 85730; 87086; 93005; 99285; J0696; J0744; J1644; J2405; J7030; J7040